=== PATIENT | male | born 1950 | race Caucasian/White ===

== ENCOUNTER 2022-10-13 13:51 | Inpatient (IN) | payer OTHER ==
--- OUTSIDE RECORDS SUMMARY | 2022-10-13 14:08 | XMS REPORT | Continuity of Care Document ---
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 0.9% - (titrate) Municipal 99 mL Trash Bin (Do not shake) D5NS 1,000 No 1,000 mL, Me moria mL 10 Rate: 250 l 05:19: ml/hr, Jong 00 Infuse over: 4 hr, Route: IV, Dosing Weight 141.038 kg, Total Volume: 1,000, Start date: 07/16/18 0:19:00 CDT, Duration: 30 day, Stop date: 08/15/18 0:18:00 CDT, 2.64, m2 Sodium No 1,000 mL, Memori a Chloride 10 Rate: 50 l 0.9% IV 05:19: ml/hr, [place] 1,000 mL 00 Infuse over: 20 hr, Route: IV, Dosing Weight 141.038 kg, Total Volume: 1,000, When Finger stick blood glucose values remain ABOVE 250 mg/dL administer until BG is less than 250 mg/dL., Start date: 07/16/18 0:19:00 CDT, Durati... potassium No Notes: Memori a phosphate 9-10 (Same as: l 05:19: K [place] Phosphate. ) Do not infuse phosphorou s concurrent ly in the same line as TPN or IVF that contains calcium. For double lumen central lines, phosphorou s may be infused in a separate lumen from TPN. 1 mMol phoshate has 1.47 mEq potassium Infuse over 4 hours Magnesium 2017-0 No Notes: Memori a Sulfate 07-16 WASTE: F/P l 05:19: - Sink; E Jong 00 - [facility] Trash Bin Potassium No Notes: Memori a Chloride 9-10 (Same as: l 05:19: KCL) Infuse no faster than 10 mEq/hr if given peripheral ly. Dextrose No 25 gm, 50 Tim bernard 50% Syringe 9-10 mL, Route: l 05:19: IVP, Drug Form: INJ, Dosing Weight 141.038, kg, PRN, PRN Blood Glucose Results, Start date: 07/16/18 0:19:00 CDT, Duration: 30 day, Stop date: 08/15/18 0:18:00 CDT Glucagon No 1 mg, Memoria 07-16 Route: IM, l 05:19: Drug form: PDR/INJ, PRN, Dosing Weight 141.038, kg, PRN Blood Glucose Results, Start date: 07/16/18 0:19:00 CDT, Duration: 30 day, Stop date: 08/15/18 0:18:00 CDT Insulin No Notes: Memoria (regular) -10 (Same as: l Titrate IV 05:19: Humulin R He rmann additive 00 and 100 unit + NovoLIN R) Sodium WASTE: F/P Chloride - Black; E 0.9% - (titrate) Municipal 99 mL Trash Bin (Do not shake) D5NS 1,000 2018 No 1,000 mL, Me moria mL 07-16 Rate: 250 l 05:19: ml/hr, Infuse over: 4 hr, Route: IV, Dosing Weight 141.038 kg, Total Volume: 1,000, Start date: 07/16/18 0:19:00 CDT, Duration: 30 day, Stop date: 08/15/18 0:18:00 CDT, 2.64, m2 Sodium No 1,000 mL, Memori a Chloride 9-10 Rate: 50 l 0.9% IV 05:19: ml/hr, Jong 1,000 mL 00 Infuse over: 20 hr, Route: IV, Dosing Weight 141.038 kg, Total Volume: 1,000, When Finger stick blood glucose values remain ABOVE 250 mg/dL administer until BG is less than 250 mg/dL., Start date: 07/16/18 0:19:00 CDT, Durati... Dextrose No 50 mL, Memoria 50% Syringe 07-16 Route: l 04:59: IVP, [place] 00 Dosing Weight 141.038, kg, PRN, PRN Abnormal Lab Result, Start date: 07/15/18 23:59:00 CDT, Duration: 30 day, Stop date: 08/14/18 23:58:00 CDT, For FSBG < 40 mg/dL Insulin No Notes: Memoria regular 100 9-10 (Same as: l unit + 04:59: Humulin R Gaetano n Sodium 00 and Chloride NovoLIN R) 0.9% WASTE: F/P (titrate) - Black; E 99 mL - [facility] Trash Bin (Do not shake) Dextrose No 50 mL, Memoria 50% Syringe 07-16 Route: l 04:59: IVP, Jong Dosing Weight 141.038, kg, PRN, PRN Abnormal Lab Result, Start date: 07/15/18 23:59:00 CDT, Duration: 30 day, Stop date: 08/14/18 23:58:00 CDT, For FSBG < 40 mg/dL Insulin No Notes: Memoria regular 100 9-10 (Same as: l unit + 04:59: Humulin R Gaetano n Sodium 00 and Chloride NovoLIN R) 0.9% WASTE: F/P (titrate) - Black; E 99 mL - [facility] Trash Bin (Do not shake) Insulin No Notes: Memoria (regular) 9-10 (Same as: l Titrate IV 04:57: Humulin R He rmann additive 00 and 100 unit + NovoLIN R) Sodium WASTE: F/P Chloride - Black; E 0.9% - (titrate) Municipal 99 mL Trash Bin (Do not shake) Insulin No Notes: Memoria (regular) 9-10 (Same as: l Titrate IV 04:57: Humulin R He rmann additive 00 and 100 unit + NovoLIN R) Sodium WASTE: F/P Chloride - Black; E 0.9% - (titrate) Municipal 99 mL Trash Bin (Do not shake) Isolyte S No Notes: Memori a PH-7.4 9-10 (Same as: l (Bolus) IV 04:37: Isolyte S He rmann 00 PH 7.4) Isolyte S No Notes: Memori a PH-7.4 9-10 (Same as: l (Bolus) IV 04:37: Isolyte S He rmann 00 PH 7.4) Tramadol No Notes: Not Mem oria 9-10 to exceed l 04:26: 400mg/day. [place] 00 (Same As: Ultram) Tramadol No Notes: Not Mem oria 9-10 to exceed l 04:26: 400mg/day. [place] 00 (Same As: Ultram) Insulin No Notes: Memoria regular 100 9-10 (Same as: l unit + 04:04: Humulin R Gaetano n Sodium 00 and Chloride NovoLIN R) 0.9% WASTE: F/P (titrate) - Black; E 99 mL - [facility] Trash Bin (Do not shake) Insulin No Notes: Memoria regular 100 9-10 (Same as: l unit + 04:04: Humulin R Gaetano n Sodium 00 and Chloride NovoLIN R) 0.9% WASTE: F/P (titrate) - Black; E 99 mL - [facility] Trash Bin (Do not shake) potassium No Notes: Memori a phosphate 9-10 (Same as: l 03:49: K 00 Phosphate. ) Do not infuse phosphorou s concurrent ly in the same line as TPN or IVF that contains calcium. For double lumen central lines, phosphorou s may be infused in a separate lumen from TPN. 1 mMol phoshate has 1.47 mEq potassium Infuse over 4 hours Potassium No Notes: Memori a Chloride 9-10 (Same as: l 03:49: KCL) Infuse no faster than 10 mEq/hr if given peripheral ly. Magnesium No Notes: Memori a Sulfate 07-16 WASTE: F/P l 03:49: - Sink; E [place] 00 - [facility] Trash Bin Glucagon No 1 mg, Memoria 07-16 Route: IM, l 03:49: Drug form: Jong 00 PDR/INJ, PRN, Dosing Weight 141.038, kg, PRN Blood Glucose Results, Start date: 07/15/18 22:49:00 CDT, Duration: 30 day, Stop date: 08/14/18 22:48:00 CDT Sodium No 1,000 mL, Memori a Chloride 07-16 Rate: 250 l 0.9% IV 03:49: ml/hr, Jong 1,000 mL 00 Infuse over: 4 hr, Route: IV, Dosing Weight 141.038 kg, Total Volume: 1,000, When Finger stick blood glucose values remain ABOVE 250 mg/dL administer until BG is less than 250 mg/dL., Start date: 07/15/18 22:49:00 CDT, Durat... D5NS 1,000 No 1,000 mL, Me moria mL 07-16 Rate: 250 l 03:49: ml/hr, Infuse over: 4 hr, Route: IV, Dosing Weight 141.038 kg, Total Volume: 1,000, Start date: 07/15/18 22:49:00 CDT, Duration: 30 day, Stop date: 08/14/18 22:48:00 CDT, 2.64, m2 Insulin No Notes: Memoria (regular) 07-16 (Same as: l Titrate IV 03:49: Humulin R He rmann additive 00 and 100 unit + NovoLIN R) Sodium WASTE: F/P Chloride - Black; E 0.9% - (titrate) Municipal 99 mL Trash Bin (Do not shake) Dextrose No 12.5 gm, Memor ia 50% Syringe 07-16 25 mL, l 03:49: Route: [place] 00 IVP, Drug Form: INJ, Dosing Weight 141.038, kg, PRN, PRN Blood Glucose Results, Start date: 07/15/18 22:49:00 CDT, Duration: 30 day, Stop date: 08/14/18 22:48:00 CDT potassium No Notes: Memori a phosphate 9-10 (Same as: l 03:49: K [place] 00 Phosphate. ) Do not infuse phosphorou s concurrent ly in the same line as TPN or IVF that contains calcium. For double lumen central lines, phosphorou s may be infused in a separate lumen from TPN. 1 mMol phoshate has 1.47 mEq potassium Infuse over 4 hours Potassium No Notes: Memori a Chloride 9-10 (Same as: l 03:49: KCL) Infuse no faster than 10 mEq/hr if given peripheral ly. Magnesium No Notes: Memori a Sulfate - WASTE: F/P l 03:49: - Sink; E Jong 00 - [facility] Trash Bin Glucagon No 1 mg, Memoria -10 Route: IM, l 03:49: Drug form: [place] 00 PDR/INJ, PRN, Dosing Weight 141.038, kg, PRN Blood Glucose Results, Start date: 07/15/18 22:49:00 CDT, Duration: 30 day, Stop date: 08/14/18 22:48:00 CDT Sodium No 1,000 mL, Memori a Chloride -10 Rate: 250 l 0.9% IV 03:49: ml/hr, Jong 1,000 mL 00 Infuse over: 4 hr, Route: IV, Dosing Weight 141.038 kg, Total Volume: 1,000, When Finger stick blood glucose values remain ABOVE 250 mg/dL administer until BG is less than 250 mg/dL., Start date: 07/15/18 22:49:00 CDT, Durat... D5NS 1,000 No 1,000 mL, Me moria mL -10 Rate: 250 l 03:49: ml/hr, Jong 00 Infuse over: 4 hr, Route: IV, Dosing Weight 141.038 kg, Total Volume: 1,000, Start date: 07/15/18 22:49:00 CDT, Duration: 30 day, Stop date: 08/14/18 22:48:00 CDT, 2.64, m2 Insulin No Notes: Memoria (regular) 9-10 (Same as: l Titrate IV 03:49: Humulin R He rmann additive 00 and 100 unit + NovoLIN R) Sodium WASTE: F/P Chloride - Black; E 0.9% - (titrate) Municipal 99 mL Trash Bin (Do not shake) Dextrose No 12.5 gm, Memor ia 50% Syringe 9-10 25 mL, l 03:49: Route: Jong 00 IVP, Drug Form: INJ, Dosing Weight 141.038, kg, PRN, PRN Blood Glucose Results, Start date: 07/15/18 22:49:00 CDT, Duration: 30 day, Stop date: 08/14/18 22:48:00 CDT Dextrose No 25 gm, 50 Tim bernard 50% Syringe 9-10 mL, Route: l 03:29: IVP, Drug Jong Form: INJ, Dosing Weight 141.038, kg, PRN, PRN Abnormal Lab Result, Start date: 07/15/18 22:29:00 CDT, Duration: 30 day, Stop date: 08/14/18 22:28:00 CDT, For FSBG < 40 mg/dL Insulin No Notes: Memoria regular 100 9-10 (Same as: l unit + 03:29: Humulin R Gaetano n Sodium 00 and Chloride NovoLIN R) 0.9% WASTE: F/P (titrate) - Black; E 99 mL - Municipal Trash Bin (Do not shake) Dextrose No 25 gm, 50 Tim bernard 50% Syringe 9-10 mL, Route: l 03:29: IVP, Drug [place] Form: INJ, Dosing Weight 141.038, kg, PRN, PRN Abnormal Lab Result, Start date: 07/15/18 22:29:00 CDT, Duration: 30 day, Stop date: 08/14/18 22:28:00 CDT, For FSBG < 40 mg/dL Insulin No Notes: Memoria regular 100 9-10 (Same as: l unit + 03:29: Humulin R Gaetano n Sodium 00 and Chloride NovoLIN R) 0.9% WASTE: F/P (titrate) - Black; E 99 mL - Municipal Trash Bin (Do not shake) acetaminoph No Notes: Max Memoria en 07-15 acetaminop l 23:00: hen 4000 Jong 00 mg/day (4 gm/day). (Same as: Tylenol Extra Strength) acetaminoph No Notes: Max Memoria en 07-15 acetaminop l 23:00: hen 4000 Jong 00 mg/day (4 gm/day). (Same as: Tylenol Extra Strength) Dextrose No 12.5 gm, Memor ia 50% Syringe 07-15 25 mL, l 22:27: Route: Jong 00 IVP, Drug Form: INJ, Dosing Weight 141.038, kg, PRN, PRN Abnormal Lab Result, Start date: 07/15/18 17:27:00 CDT, Duration: 30 day, Stop date: 08/14/18 17:26:00 CDT, For FSBG 40 mg/dL - 60 mg/dL Insulin No 60 units) Tim bernard regular 07-15 WASTE: F/P l 22:27: - Black; E Jong - [facility] Trash Bin Stable for 28 days at room temperatur e Expires in days from ____Date Dextrose No 12.5 gm, Memor ia 50% Syringe 07-15 25 mL, l 22:27: Route: [place] IVP, Drug Form: INJ, Dosing Weight 141.038, kg, PRN, PRN Abnormal Lab Result, Start date: 07/15/18 17:27:00 CDT, Duration: 30 day, Stop date: 08/14/18 17:26:00 CDT, For FSBG 40 mg/dL - 60 mg/dL Insulin No 60 units) Tim bernard regular 07-15 WASTE: F/P l 22:27: - Black; E Jong - [facility] Trash Bin Stable for 28 days at room temperatur e Expires in days from ____Date albumin 0 No Notes: Lot Tim bernard human 25% 07-15 #: l intravenous 20:41: [place] solution 00 ___ Mfg: (Same as: Plasbumin- 25) "blood product derivative " WASTE: F/P - Red; E -Red MEDICATION WASTE Product Size: 25 gm Product Wasted: ___ gm albumin No Notes: Lot Tim crawley human 25% 07-15 #: l intravenous 20:41: [place] solution 00 ___ Mfg: (Same as: Plasbumin- 25) "blood product derivative " WASTE: F/P - Red; E -Red MEDICATION WASTE Product Size: 25 gm Product Wasted: ___ gm heparin No Notes: Memoria 07-15 porcine l 18:23: heparin Jong 00 heparin No Notes: Jamesoria 07-15 porcine l 18:23: heparin [place] 00 Isolyte S No Notes: Memori a PH 7.4 07-15 (Same as: l 1,000 mL 15:48: Isolyte S Herm brie 00 PH 7.4) albumin No Notes: Maddison human 5% 07-15 LOT#: l intravenous 15:48: [place] solution 00 ___Mfg:___ ___ (Same as: Albuminar) "blood product derivative " WASTE: F/P - Red; E -Red MEDICATION WASTE Product Size: 25 gm Product Wasted: ___ gm Isolyte S No Notes: Memori a PH 7.4 07-15 (Same as: l 1,000 mL 15:48: Isolyte S Herm brie 00 PH 7.4) albumin No Notes: Maddison human 5% 07-15 LOT#: l intravenous 15:48: [place] solution 00 ___Mfg:___ ___ (Same as: Albuminar) "blood product derivative " WASTE: F/P - Red; E -Red MEDICATION WASTE Product Size: 25 gm Product Wasted: ___ gm Allopurinol No Notes: Tim bernard 07-15 (Same as: l 14:00: Zyloprim) Losartan No Notes: Memoria 07-15 (Same as: l 14:00: Cozaar) gabapentin No Notes: Memor ia 300 MG Oral 07-15 (Same as: l Capsule 14:00: Neurontin) Herm brie Colchicine No 0.6 mg, 1 Me moria 0.6 MG Oral 07-15 tab, l Tablet 14:00: Route: PO, Carley nn 00 Drug form: TAB, Daily, Dosing Weight 141.364, kg, Start date: 07/15/18 9:00:00 CDT, Duration: 30 day, Stop date: 08/13/18 9:00:00 CDT Furosemide No Notes: Memor ia 20 MG Oral 07-15 (Same as: l Tablet 14:00: Lasix) March Carley cause GI upset. Give with food or milk. Losartan No Notes: Memoria 07-15 (Same as: l 14:00: Cozaar) gabapentin No Notes: Memor ia 300 MG Oral 07-15 (Same as: l Capsule 14:00: Neurontin) Herm brie Colchicine No 0.6 mg, 1 Me moria 0.6 MG Oral 07-15 tab, l Tablet 14:00: Route: PO, Carley nn 00 Drug form: TAB, Daily, Dosing Weight 141.364, kg, Start date: 07/15/18 9:00:00 CDT, Duration: 30 day, Stop date: 08/13/18 9:00:00 CDT Furosemide No Notes: Memor ia 20 MG Oral 07-15 (Same as: l Tablet 14:00: Lasix) Marcha cause GI upset. Give with food or milk. Allopurinol No Notes: Tim bernard 07-15 (Same as: l 14:00: Zyloprim) Flomax No Notes: Memoria 07-15 (Same As: l 13:30: Flomax) "Do Not Crush" Flomax No Notes: Memoria 07-15 (Same As: l 13:30: Flomax) "Do Not Crush" Insulin 2018-0 No 60 units) Tim bernard regular 07-15 WASTE: F/P l 13:02: - Black; E [place] - [facility] Trash Bin Stable for 28 days at room temperatur e Expires in days from ____Date Insulin 2018-0 No 60 units) Tim bernard regular 07-15 WASTE: F/P l 13:02: - Black; E Jong - [facility] Trash Bin Stable for 28 days at room temperatur e Expires in days from ____Date Insulin 2018-0 No 60 units) Tim bernard regular 07-15 WASTE: F/P l 04:20: - Black; E [place] - [facility] Trash Bin Stable for 28 days at room temperatur e Expires in days from ____Date Glucagon 2018-0 No 1 mg, Memoria 07-15 Route: IM, l 04:20: Drug form: Jong 00 PDR/INJ, PRN, Dosing Weight 141.038, kg, PRN Blood Glucose Results, Start date: 07/14/18 23:20:00 CDT, Duration: 30 day, Stop date: 08/13/18 23:19:00 CDT Dextrose 2018-0 No 12.5 gm, Memor ia 50% Syringe 07-15 25 mL, l 04:20: Route: Jong 00 IVP, Drug Form: INJ, Dosing Weight 141.038, kg, PRN, PRN Blood Glucose Results, Start date: 07/14/18 23:20:00 CDT, Duration: 30 day, Stop date: 08/13/18 23:19:00 CDT Insulin 2018-0 No 60 units) Tim bernard regular 07-15 WASTE: F/P l 04:20: - Black; E Jong - [facility] Trash Bin Stable for 28 days at room temperatur e Expires in days from ____Date Glucagon 2018-0 No 1 mg, Memoria 07-15 Route: IM, l 04:20: Drug form: [place] 00 PDR/INJ, PRN, Dosing Weight 141.038, kg, PRN Blood Glucose Results, Start date: 07/14/18 23:20:00 CDT, Duration: 30 day, Stop date: 08/13/18 23:19:00 CDT Dextrose No 12.5 gm, Memor ia 50% Syringe 07-15 25 mL, l 04:20: Route: IVP, Drug Form: INJ, Dosing Weight 141.038, kg, PRN, PRN Blood Glucose Results, Start date: 07/14/18 23:20:00 CDT, Duration: 30 day, Stop date: 08/13/18 23:19:00 CDT Streptococc No Notes: Tim bernard us 07-15 Shake well l pneumoniae 04:16: prior to Her nieves serotype 1 57 use (Same capsular as: antigen Prevnar diphtheria 13) [id number] protein conjugate vaccine / Streptococc us pneumoniae serotype 14 capsular antigen diphtheria [id number] protein conjugate vaccine / Streptococc us pneumoniae serotype 18C capsular antigen d Streptococc No Notes: Tim bernard us 07-15 Shake well l pneumoniae 04:16: prior to Her nieves serotype 1 57 use (Same capsular as: antigen Prevnar diphtheria 13) [id number] protein conjugate vaccine / Streptococc us pneumoniae serotype 14 capsular antigen diphtheria [id number] protein conjugate vaccine / Streptococc us pneumoniae serotype 18C capsular antigen d atorvastati No Notes: Tim bernard n 07-15 (Same As: l 02:00: Lipitor) Saline No Notes: Memoria Flush 0.9% 07-15 preservati l 02:00: ve free. celecoxib No Notes: Memori a 07-15 NSAID. l 02:00: Please check indication . Not for seizure. (Same As: CeleBREX) metoprolol No Notes: Memor ia tartrate 07-15 (Same as: l 02:00: Lopressor) atorvastati No Notes: Tim bernard n 07-15 (Same As: l 02:00: Lipitor) Saline No Notes: Memoria Flush 0.9% 07-15 preservati l 02:00: ve free. celecoxib No Notes: Memori a 07-15 NSAID. l 02:00: Please [place] 00 check indication . Not for seizure. (Same As: CeleBREX) metoprolol No Notes: Memor ia tartrate 07-15 (Same as: l 02:00: Lopressor) PlasmaLyte No Notes: Memor ia A PH-7.4 07-15 WASTE: F/P l 1,000 mL 00:47: - Sink; E Herm brie - Municipal Trash Bin PlasmaLyte No Notes: Memor ia A PH-7.4 07-15 WASTE: F/P l 1,000 mL 00:47: - Sink; E Herm brie - Municipal Trash Bin Acetaminoph No Notes: Max Memoria en 07-14 acetaminop l 23:00: hen 4000 Jong 00 mg/day (4 gm/day). (Same as: Tylenol Extra Strength) Lidocaine No Notes: Memori a Hydrochlori 07-14 Apply only l de 0.05 23:00: once for Gaetano n MG/MG 00 up to 12 Transdermal hours in a Patch 24-hour [Lidoderm] period (12 hours on and 12 hours off). (Same as: Lidoderm) "Remove old patch before applicatio n of new patch" Acetaminoph No Notes: Max Memoria en 07-14 acetaminop l 23:00: hen 4000 Jong 00 mg/day (4 gm/day). (Same as: Tylenol Extra Strength) Lidocaine No Notes: Memori a Hydrochlori 07-14 Apply only l de 0.05 23:00: once for Gaetano n MG/MG 00 up to 12 Transdermal hours in a Patch 24-hour [Lidoderm] period (12 hours on and 12 hours off). (Same as: Lidoderm) "Remove old patch before applicatio n of new patch" Colchicine Yes 0.6 mg = 1 M emoria 0.6 MG Oral 07-14 tab, PO, l Tablet 22:46: Daily, # [place] 00 30 tab, 0 Refill(s) Glipizide Yes 10 mg = 1 Mem oria 10 MG Oral 07-14 tab, PO, l Tablet 22:46: Before [place] 00 Breakfast, # 90 tab, 0 Refill(s) metoprolol Yes 100 mg = 1 M emoria tartrate 9-08 tab, PO, l 100 mg oral 22:46: BID, # 180 [place] tablet 00 tab, 0 Refill(s) Metformin 2017-0 Yes 1,000 mg, Mem oria 9-08 PO, 0 l 22:46: Refill(s) Jong 00 losartan 50 2018-0 Yes 50 mg = 1 M emoria mg oral 9-08 tab, PO, l tablet 22:46: Daily, # Jong 00 90 tab, 0 Refill(s) Furosemide Yes 20 mg = 1 Me moria 20 MG Oral 9-08 tab, PO, l Tablet 22:46: Daily, # [place] 00 90 tab, 0 Refill(s) clopidogrel No 75 mg = 1 M emoria 75 mg oral -08 tab, PO, l tablet 22:46: Daily, # Jong 00 90 tab, 1 Refill(s) atorvastati Yes 20 mg = 1 M emoria n 20 mg -08 tab, PO, l oral tablet 22:46: Bedtime, # [place] 00 30 tab, 0 Refill(s) allopurinol Yes 300 mg = 1 Memoria 300 mg oral 9-08 tab, PO, l tablet 22:46: Daily, # Jong 00 30 tab, 0 Refill(s) gabapentin 2017- No 300 mg = 1 M emoria 300 MG Oral 08 cap, PO, l Capsule 22:46: TID, # 90 Carley nn 00 cap, 0 Refill(s) Colchicine 2017-0 Yes 0.6 mg = 1 M emoria 0.6 MG Oral -08 tab, PO, l Tablet 22:46: Daily, # Jong 00 30 tab, 0 Refill(s) Glipizide Yes 10 mg = 1 Mem oria 10 MG Oral 9-08 tab, PO, l Tablet 22:46: Before Breakfast, # 90 tab, 0 Refill(s) metoprolol 2017- Yes 100 mg = 1 M emoria tartrate 9-08 tab, PO, l 100 mg oral 22:46: BID, # 180 [place] tablet 00 tab, 0 Refill(s) Metformin Yes 1,000 mg, Mem oria 08 PO, 0 l 22:46: Refill(s) [place] 00 losartan 50 Yes 50 mg = 1 M emoria mg oral 08 tab, PO, l tablet 22:46: Daily, # [place] 00 90 tab, 0 Refill(s) Furosemide Yes 20 mg = 1 Me moria 20 MG Oral 08 tab, PO, l Tablet 22:46: Daily, # [place] 00 90 tab, 0 Refill(s) clopidogrel No 75 mg = 1 M emoria 75 mg oral 08 tab, PO, l tablet 22:46: Daily, # Jong 00 90 tab, 1 Refill(s) atorvastati Yes 20 mg = 1 M emoria n 20 mg 08 tab, PO, l oral tablet 22:46: Bedtime, # [place] 00 30 tab, 0 Refill(s) allopurinol Yes 300 mg = 1 Memoria 300 mg oral 08 tab, PO, l tablet 22:46: Daily, # Jong 00 30 tab, 0 Refill(s) gabapentin No 300 mg = 1 M emoria 300 MG Oral 08 cap, PO, l Capsule 22:46: TID, # 90 Carley nn 00 cap, 0 Refill(s) Isolyte S No Notes: Memori a PH 7.4 07-14 (Same as: l 1,000 mL 22:44: Isolyte S Herm brie 00 PH 7.4) Isolyte S No Notes: Memori a PH 7.4 07-14 (Same as: l 1,000 mL 22:44: Isolyte S Herm brie 00 PH 7.4) Tramadol No Notes: Not Mem oria 07-14 to exceed l 22:36: 400mg/day. [place] 00 (Same As: Ultram) Oxycodone No Notes: Memori a Hydrochlori 07-14 (Same as: l de 5 MG 22:36: Roxicodone Herm brie Oral Tablet 00 ) pregabalin No Notes: Memor ia 07-14 Same as l 22:36: Lyrica Jong 00 Tramadol No Notes: Not Mem oria 07-14 to exceed l 22:36: 400mg/day. Jong 00 (Same As: Ultram) Oxycodone No Notes: Memori a Hydrochlori 07-14 (Same as: l de 5 MG 22:36: Roxicodone Herm brie Oral Tablet 00 ) pregabalin No Notes: Memor ia 07-14 Same as l 22:36: Lyrica [place] 00 Saline No Notes: Memoria Flush 0.9% 08 preservati l 22:19: ve free. Jong Acetaminoph No Notes: Do M emoria en 07-14 not exceed l 22:19: 4 gm/day. Jong (Same as: Tylenol) Ibuprofen No Notes: Memori a 07-14 (Same as: l 22:19: Motrin) Jong 00 "Do Not Crush" Take with food. Docusate No Notes: Memoria 07-14 (Same as: l 22:19: Colace) [place] (Do Not Crush) Ondansetron No Notes: Tim bernard 07-14 (Same as: l 22:19: Zofran) [place] 00 MEDICATION WASTE Product Size: 4 mg Product Wasted: ___ mg Saline No Notes: Memoria Flush 0.9% 07-14 preservati l 22:19: ve free. [place] Acetaminoph No Notes: Do M emoria en 07-14 not exceed l 22:19: 4 gm/day. Jong 00 (Same as: Tylenol) Ibuprofen No Notes: Memori a 07-14 (Same as: l 22:19: Motrin) [place] 00 "Do Not Crush" Take with food. Docusate No Notes: Memoria 9-08 (Same as: l 22:19: Colace) Jong 00 (Do Not Crush) Ondansetron No Notes: Tim bernard 07-14 (Same as: l 22:19: Zofran) [place] 00 MEDICATION WASTE Product Size: 4 mg Product Wasted: ___ mg iodixanol 2018-0 No 150 mL, Memor ia 07-14 Route: l 20:23: IVP, Drug [place] 00 Form: SOLN, Dosing Weight 141.364, kg, ONCALL, STAT, Start date: 07/14/18 15:23:00 CDT, Duration: 1 doses or times, Dose = 2.2ml/kg, Max dose = 150ml -- "To be infused by Radiology Staff ONLY" iodixanol 2018-0 No 150 mL, Memor ia 07-14 Route: l 20:23: IVP, Drug Jong 00 Form: SOLN, Dosing Weight 141.364, kg, ONCALL, STAT, Start date: 07/14/18 15:23:00 CDT, Duration: 1 doses or times, Dose = 2.2ml/kg, Max dose = 150ml -- "To be infused by Radiology Staff ONLY" Ondansetron 2018-0 No 4 mg, [facility] 07-14 Route: l 19:53: IVP, ONCE, Dosing Weight 141.364, kg, Priority: STAT, Start date: 07/14/18 14:53:00 CDT, Stop date: 07/14/18 14:53:00 CDT Saline 2018-0 No Notes: Memoria Flush 0.9% 07-14 (Same as: l 19:53: BD [place] 00 Posiflush) Ondansetron 2018-0 No 4 mg, [facility] ia 07-14 Route: l 19:53: IVP, ONCE, Dosing Weight 141.364, kg, Priority: STAT, Start date: 07/14/18 14:53:00 CDT, Stop date: 07/14/18 14:53:00 CDT Saline 2018-0 No Notes: [facility]oria Flush 0.9% 07-14 (Same as: l 19:53: BD [place] 00 Posiflush) Immunizations Ordered Filled Immunization Date Status Comments [facility] e Immunization Name Name Twinrix (hep a/hep 2021-07-02 Completed [facility] b) 00:00:00 [facility] Twinrix (hep a/hep 2021-03-10 Completed [facility] of b) 00:00:00 [facility] Twinrix (hep a/hep 2021-01-12 Completed [facility] of b) 00:00:00 [facility] SARS-COV-2 COVID-19 2020-12-19 Completed [facility]ive rs[facility] of PFIZER VACCINE 00:00:00 [facility] SARS-COV-2 COVID-19 2020-11-28 Completed Unive rs[facility] of PFIZER VACCINE 00:00:00 [facility] Zoster Vaccine 2020-10-09 Completed [facility] of Recombinant 00:00:00 [facility] Influenza Virus 2020-09-03 Completed [facility] of Vaccine 00:00:00 [facility] Influenza High Dose 2020-07-29 Completed Unive rsity of 00:00:00 [facility] Zoster Vaccine 2020-07-29 Completed University of Recombinant 00:00:00 [facility] Pneumococcal 2020-05-04 Completed University o f Polysaccharide, 00:00:00 [place] [facility] PPSV23 (PNEUMOVAX) Branch Influenza Virus 2019-12-31 Completed Universit y of Vaccine 00:00:00 [facility] Pneumococcal 2019-07-03 Completed University o f Polysaccharide, 00:00:00 [facility] ical PPSV23 (PNEUMOVAX) Branch TDAP 2019-07-03 Completed University of 00:00:00 [facility] Pneumococcal 13 2018-06-15 Completed Universit y of Conjugate, PCV13 00:00:00 [facility] dicnc (Prevnar 13) [place] Vital Signs Vital Name Observation Time Observation Value Comments Source Weight 2021-05-26 21:00:00 128.36 KG Height 2021-05-26 21:00:00 183 CM Weight 2021-05-26 14:31:00 7.93 KG Temperature Oral (F) 2018-07-22 01:09:00 98.1 F [facility] Heart Rate 2018-07-22 01:09:00 [facility] Systolic (mm Hg) 2018-07-22 01:09:00 Tim rial Jong Diastolic (mm Hg) 2018-07-22 01:09:00 [facility] Respitory Rate 2018-07-22 01:09:00 Memori al [facility] Systolic (mm Hg) 2018-07-21 23:10:00 Tim rial Jong Diastolic (mm Hg) 2018-07-21 23:10:00 Mem [facility] Respitory Rate 2018-07-21 23:10:00 [facility] Temperature Oral (F) 2018-07-21 21:40:00 98.4 F [facility] Systolic (mm Hg) 2018-07-21 21:40:00 Tim rial [place] Diastolic (mm Hg) 2018-07-21 21:40:00 Mem orial Jong Respitory Rate 2018-07-21 21:40:00 [facility] Temperature Oral (F) 2018-07-21 18:57:00 98.6 F [facility] Heart Rate 2018-07-21 18:57:00 [facility] Weight 2018-07-21 18:57:00 [facility] BMI Calculated 2018-07-21 18:57:00 Memori al [facility] Height 2018-07-21 18:57:00 177.8 cm [facility] Systolic (mm Hg) 2018-07-19 17:00:00 Tim rial Jong Diastolic (mm Hg) 2018-07-19 17:00:00 [facility] Respitory Rate 2018-07-19 17:00:00 [facility] Systolic (mm Hg) 2018-07-19 16:00:00 Tim rial Jong Diastolic (mm Hg) 2018-07-19 16:00:00 [facility] Respitory Rate 2018-07-19 16:00:00 Memori al [facility] Respitory Rate 2018-07-19 15:00:00 [facility] Systolic (mm Hg) 2018-07-19 15:00:00 Tim rial [facility] Diastolic (mm Hg) 2018-07-19 15:00:00 [facility] Temperature Oral (F) 2018-07-16 10:00:00 97.0 F [facility] Temperature Oral (F) 2018-07-16 08:00:00 96.9 F [facility] Temperature Oral (F) 2018-07-16 06:00:00 96.8 F [facility] BMI Calculated 2018-07-15 04:12:00 [facility] Weight 2018-07-15 04:12:00 [facility] Height 2018-07-15 04:12:00 172.72 cm [facility] Heart Rate 2018-07-14 19:33:00 [facility] Height 2018-07-14 19:33:00 177.8 cm [facility] 2018-07-14 19:33:00 [facility] 2018-07-14 19:33:00 Vinh Weller Procedures Procedure Date / Time Performed Performing Clinician Alexis simpson [id number] 2021-05-08 00:00:00 MCKRO [facility] [id number] 2021-05-08 00:00:00 NISJO [facility] [id number] 2021-05-08 00:00:00 NISJO [facility] [id number] 2021-05-04 00:00:00 UGBST [facility] [id number] 2021-03-24 00:00:00 THADH [facility] [place] NAUTO RED BLD CLL [facility] Abril baird Encounters Start End Encounter Admission Attending Care Care Encounter Source Date/Time Date/Time Type Type Clinicians Facility Department ID 2021-12-02 Outpatient 3 [id number] [facility] [id number] [facility] 12:53:07 [facility] [place] 2021-12-02 Outpatient 3 [id number] [facility] REF [id number] [facility] 12:52:20 0910 [facility] [place] 2021-12-02 Outpatient 3 [id number] [facility] REF [id number] [facility] 12:52:08 0909 [facility] [place] 2021-12-02 Outpatient 3 [id number] E[facility] CRD [id number] [facility] 12:29:03 0710 [facility] [place] 2021-12-02 Outpatient 3 [id number] E[facility] CRD [id number] [facility] 12:28:27 0708 [facility] [place] 2021-12-02 Outpatient 3 [id number] E[facility] REF [id number] [facility] 12:24:47 0629 [facility] [place] 2021-12-02 Outpatient 3 [id number] E[facility] REF [id number] [facility] 12:24:33 0628 [facility] [place] 2022-04-12 2022-04-12 Transition MARY ANN [place] 1.2.840.114 [id number] Univers 00:00:00 00:00:00 of Gabriella GEORGEY [id number] it y of [place]ER[place] [id number] [facility] [id number] [facility] [address] 2022-04-07 2022-04-10 Inpatient Jatinder [facility] [id number] Univers 12:30:00 14:40:00 MAGALIS conteh [facility] 2022-04-07 2022-04-10 Inpatient Jatinder [facility] [id number] Univers 12:30:00 14:40:00 MAGALIS conteh [facility] 2022-04-07 2022-04-10 [facility] Bryant Loomis [facility] 1.2.840.1 [id number] Univers 12:30:00 14:40:00 Magalis Carcamo [id number] ity [id number] [id number] [facility] 080 Branch 2021-08-04 2021-08-04 Outpatient [facility] [id number] 09:32:00 09:32:00 -[id number] [facility] 2021-08-03 2021-08-03 Outpatient [facility] [id number] 20:00:00 20:00:00 -[id number] [facility] 2021-08-02 2021-08-02 Outpatient [facility] [id number] 01:35:00 01:35:00 -[id number] [facility] 2021-07-30 2021-07-30 Outpatient [facility] [id number] 09:56:00 09:56:00 -[id number] [facility] 2021-07-26 2021-07-26 Outpatient [facility] [id number] 10:50:00 10:50:00 -[id number] [facility] 2021-07-23 2021-07-23 Outpatient [facility] [id number] 13:23:00 13:23:00 -[id number] [facility] 2021-07-21 2021-07-21 Outpatient [facility] [id number] 10:15:00 10:15:00 -[id number] [facility] 2021-07-19 2021-07-19 Outpatient [facility] [id number] 12:37:00 12:37:00 -[id number] [facility] 2021-07-12 2021-07-18 [facility] Malia Cruz [facility] 1.2.840. 114 [id number] Univers 18:29:00 15:15:00 Encounter Wendy Baez [id number] ity of Dagmar Perez [id number] [facility] [id number] [address] 2021-07-12 2021-07-18 Inpatient X ANA [facility] JUNIOR [id number] Univers 18:29:00 15:15:00 DAGMAR conteh [facility] 2021-06-13 2021-06-17 Emergency Kennedi Ndiayeanne [facility] 1.2.840 .114 [id number] Univers 11:17:00 16:30:00 Magalis Poe [id number] itGilles [id number] [facility] [id number] [address] 2021-06-13 2021-06-13 Emergency X MAURY [facility] ERT [id number] Univers 11:17:00 11:17:00 FIDE conteh [facility] 2021-05-26 2021-05-28 Outpatient C [facility] [id number] [place] 14:26:00 15:35:00 [facility] 2021-04-28 2021-05-14 Inpatient EM Willis Dotsonh [facility] INTE [id number] [facility] 01:11:00 21:18:[address] [facility] 2021-04-27 2021-04-27 Emergency EM JACKSON [place] [facility] [id number] [facility] 14:49:00 21:39:00 Briseida Garza [facility] 2021-04-22 2021-04-25 Inpatient EM Cheyenne, DUSTINPM SURG [id number] [facility] 13:01:00 09:50:00 Mohamed 71 [facility] 2021-04-22 2021-04-22 Outpatient [place], DUSTINCL LABO [id number] [facility] 20:47:00 20:47:00 Mohamed 23 [facility] 2021-03-21 2021-03-30 Inpatient EM Jason, HCAPM MED [id number] [facility] 18:51:00 14:55:00 Oladipo 20 [facility] 2021-03-20 2021-03-20 Outpatient Jason, HCACL LABO [id number] [facility] 23:42:00 23:42:00 Oladipo 60 [facility] 2020-10-28 2020-10-28 Outpatient KNOW, HCABM OPLA [id number] [facility] 20:42:00 20:42:00 DOES_NOT 88 [facility] 2020-05-17 2020-05-17 Telephone Josephine Coleman 1.2.840.114 [id number] 00:00:00 00:00:00 KATLYN [id number] [facility] [id number] [id number] 2020-05-17 2020-05-17 Telephone Josephine Coleman 1.2.840.114 [id number] Univers 00:00:00 00:00:00 KATLYN [id number] it y [facility] [id number] [facility] [id number] [facility] 0[address] 2020-05-11 2020-05-11 [facility] 1.2.840.114 [id number] 08:59:36 12:09:00 Cori Bhat [id number] [place] [id number] [place] [id number] [facility] 2020-05-11 2020-05-11 [facility] 1.2.840.114 [id number] [facility] 08:59:36 12:09:00 Cori Bhat [id number] ity [facility] [id number] [facility] [id number] [address] 2020-05-11 2020-05-[address] [facility] ERT [id number] Univers 08:59:36 08:59:36 ity of [facility] 2020-02-15 2020-02-15 Transition Mary Ann Page 1.2.840.114 [id number] 00:00:00 00:00:00 of Care Roxanna Georgey [id number] [place] [id number] [id number] 2020-02-15 2020-02-15 Transition Mary Ann Page 1.2.840.114 [id number] Univers 00:00:00 00:00:00 of Care Roxanna Georgey [id number] i ty of [id number] [id number] [facility] 403 [place] 2020-02-11 2020-02-14 [facility] Mckay Moore 1.2.840.1 14 [id number] 14:42:07 18:40:00 Encounter SternGermánmt Potts [id number] [facility] [id number] [id number] [facility] 2020-02-11 2020-02-14 [facility] Mckay Moore 1.2.840.1 14 [id number] Univers 14:42:07 18:40:00 [facility] [id number] ity of [facility] [id number] [place] [id number] [place] [id number] [place] 2020-02-11 2020-02-14 Inpatient X [facility] SAH [id number] Univers 14:42:07 18:40:00 HASHPACO ity of [facility] 2018-07-21 2018-07-22 Emergency [facility] [id number] Memoria 18:52:00 01:12:00 saul soto [facility] 2018-07-21 2018-07-22 Emergency [facility] [id number] Memoria 18:52:00 01:12:00 saul soto [facility] 2018-07-21 2018-07-21 Outpatient Aznaurova-A [facility] [id number] 13:52:00 20:12:00 Ines roy 2018-07-14 2018-07-19 Inpatient [facility] [id number] Memoria 19:29:00 17:30:00 r [facility] 00 l [facility] 2018-07-14 2018-07-19 Inpatient [facility] [id number] Memoria 19:29:00 17:30:[address] [facility] 2018-07-14 2018-07-19 Outpatient Nolan, [facility] [id number] 14:29:00 12:30:00 Janie 00 Rhett Results Test Description Test Time Test Comments Results Result Comments Source URINE CULTURE 2021-05-29 08:40:00 Test Item Value Reference Range Interpretation Comme nts Culture Observations (test code = COB1) NO GROWTH (<1,000 CFU/ML) COMPREHENSIVE METABOLIC [id number] 06:58:00 Test Item Value Reference Range Interpretation Comments GLUCOSE (test code 95 mg/dL 75-100 = 06D) SODIUM (test code 138 mmol/L 136-145 = 01A) POTASSIUM (test 4.6 mmol/L 3.6-5.1 code = 01B) CHLORIDE (test 110 mmol/L 98-107 H code = 04A) CO2 (test code = 24 mmol/L 22-32 02A) ANION GAP (test 8.6 mmol/L code = ANG) BUN (test code = 49 mg/dL 7-18 H 05D) CREATININE (test 2.2 mg/dL 0.7-1.3 H code = 03E) GFR (test code = 29 See_Comment L [Automated GFR) mL/min/1.73m\\S\\2 message] Th e system which generated this result transmit didi reference range : >=90. The reference range was not used to interpret this result as normal/abnormal . GFR 33 See_Comment L [Automated CANADIAN (test mL/min/1.73m\\S\\2 message] The code = GFRAA) system which generated this result transmit didi reference range : >=90. The reference range was not used to interpret this result as normal/abnormal . EGFR (test code = eGFR BY EGFR) CKD-EPI CALCULATION IS NOT RECOMMENDED FOR PATIENTS UNDER 18 YEARS OF AGE. BUN/CREA (test 22 12-20 H code = BCR) CALCIUM (test code 8.0 mg/dL 8.3-9.5 L = 09D) BILI TOTAL (test 0.6 mg/dL 0.2-1.0 code = 11A) PROTEIN (test code 5.8 g/dL 6.4-8.2 L = 07D) ALBUMIN (test code 2.2 g/dL 3.5-4.8 L = 08D) GLOBULIN (test 3.6 g/dL 1.5-3.8 code = GLB) ALB/GLOB (test 0.6 1.0-2.6 L code = AGRR) ALK PHOS (test 132 IU/L 42-121 H code = 35A) AST (test code = 17 IU/L See_Comment [Automated 30A) message] The system which generated this result transmit didi reference range : <=42. The reference range was not used to interpret this result as normal/abnormal . ALT (test code = 26 IU/L See_Comment [Automated 31A) message] The system which generated this result transmit didi reference range : <=78. The reference range was not used to interpret this result as normal/abnormal . CBC (INCLUDES AUTOMATED DIFFERENTIAL)2021-05-28 06:49:00 Test Item Value Reference Range Interpretation Comments WBC (test code = WBC) 3.9 10\\S\\3/uL 4.5-11.0 L RBC (test code = RBC) 2.85 10\\S\\6/uL 3.80-5.80 L HGB (test code = HBG) 8.8 g/dL 14.0-18.0 L HCT (test code = HCT) 26.7 % 35.0-46.0 L MCV (test code = MCV) 93.7 fL 80.0-94.0 MCH (test code = MCH) 30.9 pg 27.0-31.0 MCHC (test code = MCHC) 33.0 g/dL 32.0-36.0 RDW (test code = RDW) 13.8 % 11.5-14.5 PLT (test code = PLT) 93 10\\S\\3/uL 130-400 L MPV (test code = MPV) 10.4 fL 9.4-12.4 NEUTROP # (test code = NE#) 2.3 10\\S\\3/uL 2.0-8.0 LYMPH # (test code = LY#) 0.8 10\\S\\3/uL 1.2-4.0 L MONOCYTE # (test code = MO#) 0.4 10\\S\\3/uL 0.0-1.1 EOSINOPH # (test code = EO#) 0.4 10\\S\\3/uL 0.0-0.7 BASOPHIL # (test code = BA#) 0.0 10\\S\\3/uL 0.0-0.3 IG # (test code = IG#) 0.02 10\\S\\3/uL 0.00-0.06 NRBC # (test code = NRBC#) 0.00 10\\S\\3/uL 0.00-0.01 NEUTROPH % (test code = NE%) 59.5 % 35.0-73.0 LYMPH % (test code = LY%) 20.6 % 20.0-55.0 MONO % (test code = MO%) 9.3 % 2.5-10.0 EOSINOPH % (test code = EO%) 9.8 % 0.0-5.0 H BASOPHIL % (test code = BA%) 0.3 % 0.0-2.0 IG % (test code = IG%) 0.5 % 0.0-0.8 NRBC% (test code = NRBC%) 0.0 % 0.0-0.2 MANDIFF (test code = MDIFF) NO NO RBC MORPH (test code = RBCMOR) NORMAL SARS-CoV-2 (MOLECULAR)2021-05-27 10:42:00 Test Item Value Reference Range Interpretation Comments SARS-CoV-2 MOLECULAR POSITIVE NEGATIVE AA (test code = WCOV) COVID AG (test code This test has been = COVAGC) marketed under the FDA Emergency Use Authorization (EUA) to meet challenges of the COVID-19 pandemic. The validation standards normally enforced by the FDA and the [employer] of the [place] [employer] (CAP) are more stringent than those required for this test. Therefore, the result should be interpreted with caution and close attention to other clinical and epidemiological data CBC (INCLUDES AUTOMATED DIFFERENTIAL)2021-05-27 07:28:00 Test Item Value Reference Range Interpretation Comments WBC (test code = WBC) 3.7 10\\S\\3/uL 4.5-11.0 L RBC (test code = RBC) 2.97 10\\S\\6/uL 3.80-5.80 L HGB (test code = HBG) 9.2 g/dL 14.0-18.0 L HCT (test code = HCT) 27.4 % 35.0-46.0 L MCV (test code = MCV) 92.3 fL 80.0-94.0 MCH (test code = MCH) 31.0 pg 27.0-31.0 MCHC (test code = MCHC) 33.6 g/dL 32.0-36.0 RDW (test code = RDW) 13.6 % 11.5-14.5 PLT (test code = PLT) 83 10\\S\\3/uL 130-400 L MPV (test code = MPV) 10.4 fL 9.4-12.4 NEUTROP # (test code = NE#) 2.4 10\\S\\3/uL 2.0-8.0 LYMPH # (test code = LY#) 0.6 10\\S\\3/uL 1.2-4.0 L MONOCYTE # (test code = MO#) 0.3 10\\S\\3/uL 0.0-1.1 EOSINOPH # (test code = EO#) 0.3 10\\S\\3/uL 0.0-0.7 BASOPHIL # (test code = BA#) 0.0 10\\S\\3/uL 0.0-0.3 IG # (test code = IG#) 0.01 10\\S\\3/uL 0.00-0.06 NRBC # (test code = NRBC#) 0.00 10\\S\\3/uL 0.00-0.01 NEUTROPH % (test code = NE%) 65.3 % 35.0-73.0 LYMPH % (test code = LY%) 16.8 % 20.0-55.0 L MONO % (test code = MO%) 9.2 % 2.5-10.0 EOSINOPH % (test code = EO%) 7.9 % 0.0-5.0 H BASOPHIL % (test code = BA%) 0.5 % 0.0-2.0 IG % (test code = IG%) 0.3 % 0.0-0.8 NRBC% (test code = NRBC%) 0.0 % 0.0-0.2 MANDIFF (test code = MDIFF) NO NO RBC MORPH (test code = RBCMOR) NORMAL BASIC METABOLIC [id number] 07:02:00 Test Item Value Reference Range Interpretation Comments GLUCOSE (test code 126 mg/dL 75-100 H = 06D) SODIUM (test code 139 mmol/L 136-145 = 01A) POTASSIUM (test 4.6 mmol/L 3.6-5.1 code = 01B) CHLORIDE (test 109 mmol/L 98-107 H code = 04A) CO2 (test code = 26 mmol/L 22-32 02A) ANION GAP (test 8.6 mmol/L code = ANG) BUN (test code = 57 mg/dL 7-18 H 05D) CREATININE (test 2.2 mg/dL 0.7-1.3 H code = 03E) GFR (test code = 30 See_Comment L [Automated GFR) mL/min/1.73m\\S\\2 message] Th e system which generated this result transmit didi reference range : >=90. The reference range was not used to interpret this result as normal/abnormal . GFR 34 See_Comment L [Automated CANADIAN (test mL/min/1.73m\\S\\2 message] The code = GFRAA) system which generated this result transmit didi reference range : >=90. The reference range was not used to interpret this result as normal/abnormal . EGFR (test code = eGFR BY EGFR) CKD-EPI CALCULATION IS NOT RECOMMENDED FOR PATIENTS UNDER 18 YEARS OF AGE. BUN/CREA (test 26 12-20 H code = BCR) CALCIUM (test code 8.1 mg/dL 8.3-9.5 L = 09D) BASIC METABOLIC [id number] 23:18:00 Test Item Value Reference Range Interpretation Comments GLUCOSE (test code 124 mg/dL 75-100 H = 06D) SODIUM (test code 140 mmol/L 136-145 = 01A) POTASSIUM (test 4.8 mmol/L 3.6-5.1 code = 01B) CHLORIDE (test 108 mmol/L 98-107 H code = 04A) CO2 (test code = 26 mmol/L 22-32 02A) ANION GAP (test 10.8 mmol/L code = ANG) BUN (test code = 59 mg/dL 7-18 H 05D) CREATININE (test 1.9 mg/dL 0.7-1.3 H code = 03E) GFR (test code = 34 See_Comment L [Automated GFR) mL/min/1.73m\\S\\2 message] Th e system which generated this result transmit didi reference range : >=90. The reference range was not used to interpret this result as normal/abnormal . GFR 39 See_Comment L [Automated CANADIAN (test mL/min/1.73m\\S\\2 message] The code = GFRAA) system which generated this result transmit didi reference range : >=90. The reference range was not used to interpret this result as normal/abnormal . EGFR (test code = eGFR BY EGFR) CKD-EPI CALCULATION IS NOT RECOMMENDED FOR PATIENTS UNDER 18 YEARS OF AGE. BUN/CREA (test 30 12-20 H code = BCR) CALCIUM (test code 8.0 mg/dL 8.3-9.5 L = 09D) HEMOGLOBIN & [id number] 23:06:00 Test Item Value Reference Range Interpretation Comments HGB (test code = HBG) 9.8 g/dL 14.0-18.0 L HCT (test code = HCT) 29.3 % 35.0-46.0 L URINALYSIS WITH [id number] 18:03:00 Test Item Value Reference Range Interpretation Comments COLOR (test code = COLU) RED YELLOW A CLARITY (test code = CLA) TURBID CLEAR A GLUCOSE UR (test code = UA GLUCOSE) NEGATIVE NEGATIVE BILI UR (test code = BILE) 2+ NEGATIVE A KETONES UR (test code = CONSTANITN) 1+ NEGATIVE A SP GRAVITY (test code = SPGR) 1.014 1.005-1.030 PH UR (test code = PH) 6.0 4.5-8.0 PROTEIN UR (test code = PU) 2+ NEGATIVE A UROBIL UR (test code = UROQ) 1.0 EU/dL 0.2-1.0 NITRITE UR (test code = NITRITE) POSITIVE NEGATIVE A BLOOD UR (test code = UA BLOOD) 3+ NEGATIVE A LEUK ES UR (test code = LEUK) 2+ NEGATIVE A WBC UR (test code = UWBC) 8 /HPF 0-3 H RBC UR (test code = URBC) >100 /HPF 0-2 H EPITH UR (test code = UEPC) FEW /LPF NONE A BACTERIA UR (test code = UBACT) FEW /HPF NONE A CAST UR (test code = CAST) /LPF NONE CRYSTAL UR (test code = CRYU) / LPF NONE MUCUS UR (test code = MUC) / HPF NONE AMORPH UR (test code = EVELIA) / HPF NONE TRICH UR (test code = UTRICH) /HPF NONE YEAST UR (test code = UY) /HPF NONE SPERM UR (test code = USPERM) /HPF NONE HEMOGLOBIN & [id number] 17:52:00 Test Item Value Reference Range Interpretation Comments HGB (test code = HBG) 9.8 g/dL 14.0-18.0 L HCT (test code = HCT) 29.5 % 35.0-46.0 L SARS-CoV (RAPID ANTIGEN)2021-05-26 17:37:00 Test Item Value Reference Range Interpretation Comments SARS-CoV (ANTIGEN) POSITIVE NEGATIVE AA (test code = COVAG) COVID AG (test This test has been code = COVAGC) marketed under the FDA Emergency Use Authorization (EUA) to meet challenges of the COVID-19 pandemic. The validation standards normally enforced by the FDA and the [employer] of the [place] [employer] (CAP) are more stringent than those required for this test. Therefore, the result should be interpreted with caution and close attention to other clinical and epidemiological data OCCULT [id number] 17:29:00 Test Item Value Reference Range Interpretation Comments Direct Exam (test code NEGATIVE FOR OCCULT = DE3) BLOOD PRO TIME AND [id number] 15:54:00 Test Item Value Reference Range Interpretation Comments PT (test code = 11.9 s 9.8-13.6 TT) INR (test code = 1.0 INR) INRH (test code = SUGGESTED THERAPEUTIC INRH) RANGE FOR INR: 2.5 - 3.5 For Patients with Prosthetic Valves or Patients with recurrent Thromboembolic Events 2.0 - 3.0 For Most Other Applications PTT (test code = 32.2 s 20.2-38.0 PTT) PTTH (test code = To monitor the PTTH) effectiveness of heparin, we offer the Anti-Xa (Heparin Assay). It can be used for either unfractionated or LMW Heparin. Order Code is ANTI-XA COMPREHENSIVE METABOLIC [id number] 15:50:00 Test Item Value Reference Range Interpretation Comments GLUCOSE (test code 140 mg/dL 75-100 H = 06D) SODIUM (test code 141 mmol/L 136-145 = 01A) POTASSIUM (test 5.1 mmol/L 3.6-5.1 code = 01B) CHLORIDE (test 114 mmol/L 98-107 H code = 04A) CO2 (test code = 23 mmol/L 22-32 02A) ANION GAP (test 9.1 mmol/L code = ANG) BUN (test code = 56 mg/dL 7-18 H 05D) CREATININE (test 1.8 mg/dL 0.7-1.3 H code = 03E) GFR (test code = 36 See_Comment L [Automated GFR) mL/min/1.73m\\S\\2 message] Th e system which generated this result transmit didi reference range : >=90. The reference range was not used to interpret this result as normal/abnormal . GFR 42 See_Comment L [Automated CANADIAN (test mL/min/1.73m\\S\\2 message] The code = GFRAA) system which generated this result transmit didi reference range : >=90. The reference range was not used to interpret this result as normal/abnormal . EGFR (test code = eGFR BY EGFR) CKD-EPI CALCULATION IS NOT RECOMMENDED FOR PATIENTS UNDER 18 YEARS OF AGE. BUN/CREA (test 31 12-20 H code = BCR) CALCIUM (test code 7.1 mg/dL 8.3-9.5 L = 09D) BILI TOTAL (test 0.6 mg/dL 0.2-1.0 code = 11A) PROTEIN (test code 5.5 g/dL 6.4-8.2 L = 07D) ALBUMIN (test code 2.1 g/dL 3.5-4.8 L = 08D) GLOBULIN (test 3.4 g/dL 1.5-3.8 code = GLB) ALB/GLOB (test 0.6 1.0-2.6 L code = AGRR) ALK PHOS (test 137 IU/L 42-121 H code = 35A) AST (test code = 29 IU/L See_Comment [Automated 30A) message] The system which generated this result transmit didi reference range : <=42. The reference range was not used to interpret this result as normal/abnormal . ALT (test code = 32 IU/L See_Comment [Automated 31A) message] The system which generated this result transmit didi reference range : <=78. The reference range was not used to interpret this result as normal/abnormal . [id number] 15:50:00 Test Item Value Reference Range Interpretation Comments MAGNESIUM (test code = 48A) 1.8 mg/dL 1.8-2.4 CBC (INCLUDES AUTOMATED DIFFERENTIAL)2021-05-26 15:34:00 Test Item Value Reference Range Interpretation Comments WBC (test code = WBC) 2.6 10\\S\\3/uL 4.5-11.0 L RBC (test code = RBC) 1.60 10\\S\\6/uL 3.80-5.80 L HGB (test code = HBG) 5.0 g/dL 14.0-18.0 LL HCT (test code = HCT) 15.8 % 35.0-46.0 LL MCV (test code = MCV) 98.8 fL 80.0-94.0 H MCH (test code = MCH) 31.3 pg 27.0-31.0 H MCHC (test code = MCHC) 31.6 g/dL 32.0-36.0 L RDW (test code = RDW) 13.9 % 11.5-14.5 PLT (test code = PLT) 43 10\\S\\3/uL 130-400 L MPV (test code = MPV) 10.3 fL 9.4-12.4 NEUTROP # (test code = NE#) 2.0 10\\S\\3/uL 2.0-8.0 LYMPH # (test code = LY#) 0.3 10\\S\\3/uL 1.2-4.0 L MONOCYTE # (test code = MO#) 0.2 10\\S\\3/uL 0.0-1.1 EOSINOPH # (test code = EO#) 0.1 10\\S\\3/uL 0.0-0.7 BASOPHIL # (test code = BA#) 0.0 10\\S\\3/uL 0.0-0.3 IG # (test code = IG#) 0.02 10\\S\\3/uL 0.00-0.06 NRBC # (test code = NRBC#) 0.00 10\\S\\3/uL 0.00-0.01 NEUTROPH % (test code = NE%) 75.7 % 35.0-73.0 H LYMPH % (test code = LY%) 10.8 % 20.0-55.0 L MONO % (test code = MO%) 7.3 % 2.5-10.0 EOSINOPH % (test code = EO%) 5.0 % 0.0-5.0 BASOPHIL % (test code = BA%) 0.4 % 0.0-2.0 IG % (test code = IG%) 0.8 % 0.0-0.8 NRBC% (test code = NRBC%) 0.0 % 0.0-0.2 MANDIFF (test code = MDIFF) NO NO CT ABDOMEN AND PELVIS W/O [id number] 15:26:44 [facility] 1950 Sex: MEXAMINATION:CT ABDOMEN PELVIS WITHOUT IV CONTRAST.HISTORY: Bladder pain, urinary catheter change recently, 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 One or more the following dose reduction techniques were used: Autom ated exposure control, adjustment of mA and/or kV according to patient size, and use of iterative reconstruction technique.FINDINGS:Evaluation of intra-abdominal viscera is limited due to lack of oral and intravenous contrast.Visualized lung bases demonstrates dependent changes. Coronary arterial calcifications.The unenhanced liver, pancreas, and adrenal glands to be unremarkable. Borderline spleen at 14.1 cm. Cholelithiasis. Prominent mid CBD at 8 mm.Bilateral perinephric stranding, presumably senescent. No nephroureterolithiasis or hydroureteronephrosis. Urinary bladder contains air and dependenthyperdense material. Solano catheter balloon is noted within proximal penile urethra.The bowel loops appear normal in course and caliber. No bowel obstruction. Nonvisualization of appendix. Moderate stool throughout colon.No abdominal or pelvic bulky lymphadenopathy.No pneumoperitoneum or free fluid. Atherosclerotic vascular calcifications.Visualized osseous structures demonstrate degenerative changes.IMPRESSION: Solano catheter balloon is noted within proximal penile urethra.Hyperdense material within dependent portion of urinary bladder, presumably representing hemorrhage.Moderate stool throughout colon.Prominent CBD at 8 mm, correlate with LFTs. Cholelithiasis.Other findings as above.Findings discussed with Emir HAND at 05/26/2021 3:24 PM.Electronically signed by: Jacqueline Kevin MD 05/26/2021 3:26 PM CDT [id number],TONI 2021-05-17 13:44:00 Test Item Value Reference Range Interpretation Comments ARTERY,PLAQUE (test code = ART) --------RUN DATE: 05/17/21 [place] [email or web address] [facility] PAGE 1 RUN TIME: 1344 Specimen Inquiry RUN USER: INTERFACE --------PAT[facility]: [facility] [id number] AGE/SX: 70/M ROOM: [facility] RE04/28/21REG DR: Judd Dotson MD : 48 BED: A DIS: 05/14/21 STATUS: DIS IN TLOC: -------- SPEC #: [id number]:BALTAZAR:[id number] RECD: 05/09/21-1038 STATUS: KRANTHI RE #: [id number] AVERY: 05/08/21-[address] [facility] DR: Judd Dotson MD ENTERED: 05/09/21-1042 SP TYPE: ARTERY, PL OTHR DR: DOES_NOT KNOW Self Referred Ryne Aragon MD, Humair MD Peracha, Waseem MD Sankaranarayanan, Venkataraja n Ugbarugba,Raghavendra Whitney,Vincent ADAMSORDERED: DECAL, SURG PATH LVL 3, SURG PATH LVL 4 CODES: [id number] - PLAQUE, NOS [id number] - ATHEROSCLEROSIS [id number] - ARTERY, NOS [id number] - CERVIX EXCISION, NOS [id number] - LYMPH NODE, NOS COPIES TO: DOES_NOT KNOW [place] [address] [place] [address] [place] [address] [place] [address] [place] [address] [place] [address] [place] [address] [place] [address] [place] [address] [place] [address] CONTINUED ON NEXT PAGE --------RUN DATE: 05/17/21 [place] - [facility] PAGE 2 RUN TIME: 1344 Specimen Inquiry RUN USER: INTERFACE --------SPEC #: [id number]:BALTAZAR:[id number] PATIENT: MI MCKENNA #[id number] (Continued) COPIES TO: (Continued) [place] [address] [place] [address] [place] [address] [place] [address] [facility] backup # [phone] ICD CODES: 440 - PROCEDURES: DECAL (05/09/21) SURG PATH LVL 3 (05/09/21) SURG PATH LVL 4 (05/09/21) TISSUES: A. ARTERY, NOS - RT CAROTID PLAQUE B. LYMPH NODE, NOS - RT CERVICAL LYMPH NODE CPT CODES CPT CODE(S): 52303 , 91385 , 47554 , , , , FINAL DIAGNOSIS A. Right carotid plaque, endarterectomy: CALCIFIED ATHEROSCLEROTIC PLAQUE B. Lymph node, right cervical, excision: ONE BENIGN LYMPH NODE GROSS DESCRIPTION A. Right carotid plaque. Received is a segment of yellow-zavala plaque that measures 2.7 x 1 x 0.8 cm. Sectioning reveals a heavily calcified cut surface. [employer] section submitted for decalcification as A1. B. Right cervical lymph node. The specimen consists of a single node measuring 2.5 x 1 x 0.8 cm. It is serially sectioned and submitted entirely as B1 and B2. /tc/pdb CONTINUED ON NEXT PAGE --------RUN DATE: 05/17/21 [place] - LAB PAGE 3 RUN TIME: 1344 Specimen Inquiry RUN USER: INTERFACE --------SPEC #: [id number]:BALTAZAR:[id number] PATIENT: MI MCKENNA #[id number] (Continued) MICROSCOPIC DESCRIPTION A. Right carotid plaque. The microscopic description is incorporated into the final diagnosis. B. Right cervical lymph node. The microscopic description is incorporated into the final diagnosis. /pdb Signed SIGNATURE ON FILE Octavia Krueger 05/17/21 1344 -------- END OF REPORT CBC W/O [id number] 12:53:00 Test Item Value Reference Range Interpretation Comments WHITE BLOOD CELL (test code = 6.1 K/MM3 3.8-9.8 N WBC) RED BLOOD CELL (test code = 3.08 M/MM3 3.95-5.67 L RBC) HEMOGLOBIN (test code = HGB) 9.3 G/DL 12.4-16.7 L HEMATOCRIT (test code = HCT) 30.1 % 35.9-49.5 L MEAN CELL VOLUME (test code = 98 fL 81.7-96.1 H MCV) MEAN CELL HGB (test code = MCH) 30.2 pg 27.6-33.2 N MEAN CELL HGB CONCETRATION 30.9 % 32.9-35.5 L (test code = MCHC) RED CELL DISTRIBUTION WIDTH 14.6 % 12.1-15.2 N (test code = RDW) PLATELET COUNT (test code = 97 K/MM3 129-368 L PLT) NEUTROPHIL # (test code = NT#) 4.16 K/mm3 2.0-7.6 N IMMATURE GRANULOCYTE # (test 0.05 x10 3/uL 0-0.03 H code = IG#) LYMPHOCYTE # (test code = LY#) 0.62 K/mm3 1.0-3.8 L MONOCYTE # (test code = MO#) 0.52 K/mm3 0.1-0.8 N EOSINOPHIL # (test code = EO#) 0.68 K/mm3 0.0-0.2 H BASOPHIL # (test code = BA#) 0.04 K/mm3 0.0-0.2 N NUCLEATED RBC # (test code = 0.00 K/mm3 0.0-0.1 N NRBC#) WBC [id number] 12:53:00 Test Item Value Reference Range Interpretation Comments RBC MORPHOLOGY REQUIRED (test code NORMAL = RBCM) TOTAL CELLS COUNTED (test code = 130 #CELLS TCC) SEGMENTED NEUTROPHILS (test code = 74.8 % 36.2-73.8 H SEG) BAND NEUTROPHIL (test code = BAND) 0.0 % 0-10 N LYMPHOCYTE (test code = LYMPH) 7.9 % 12.9-45.1 L ATYPICAL LYMPH (test code = 0.0 % 0-0 N ALYMPH) MONOCYTE (test code = MON) 7.1 % 0-11 N EOSINOPHIL (test code = EOS) 7.9 % 1-7 H BASOPHIL (test code = BASO) 2.3 % 0-2 H PLATELET ESTIMATE (test code = DECREASED ADEQUATE PLTEST) PLATELET MORPHOLOGY (test code = NORMAL NORMAL PLTMORPH) GLUCOSE BEDSIDE [id number] 11:56:00 Test Item Value Reference Range Interpretation Comments GLUCOSE BEDSIDE TESTING (test code 193 MG/DL 60-99 H = GLUBED) GLUCOSE BEDSIDE [id number] 07:46:00 Test Item Value Reference Range Interpretation Comments GLUCOSE BEDSIDE TESTING (test code 127 MG/DL 60-99 H = GLUBED) BASIC METABOLIC [id number] 07:39:00 Test Item Value Reference Range Interpretation Comments SODIUM (test code = 135 MMOL/L 137-145 L NA) POTASSIUM (test code = 4.7 MMOL/L 3.5-5.1 N K) CHLORIDE (test code = 103 MMOL/L 98-107 N CL) CARBON DIOXIDE (test 29 MMOL/L 22-30 N code = CO2) GLUCOSE (test code = 127 MG/DL 74-106 H GLU) BLOOD UREA NITROGEN 62 MG/DL 9-20 H (test code = BUN) GLOMERULAR FILTRATION 45 Report ing units: RATE (test code = GFR) ml/mi n/1.73 m2 (Modified MDRD Formula)Referen ce Range: > or = 6 0 ml/min/1.73 m2 CREATININE (test code 1.80 MG/DL 0.66-1.25 H = CREAT) CALCIUM (test code = 8.7 MG/DL 8.4-10.2 N CA) CBC W/O [id number] 07:28:00 Test Item Value Reference Range Interpretation Comments WHITE BLOOD CELL (test code = 6.1 K/MM3 3.8-9.8 N WBC) RED BLOOD CELL (test code = 3.08 M/MM3 3.95-5.67 L RBC) HEMOGLOBIN (test code = HGB) 9.3 G/DL 12.4-16.7 L HEMATOCRIT (test code = HCT) 30.1 % 35.9-49.5 L MEAN CELL VOLUME (test code = 98 fL 81.7-96.1 H MCV) MEAN CELL HGB (test code = MCH) 30.2 pg 27.6-33.2 N MEAN CELL HGB CONCETRATION 30.9 % 32.9-35.5 L (test code = MCHC) RED CELL DISTRIBUTION WIDTH 14.6 % 12.1-15.2 N (test code = RDW) PLATELET COUNT (test code = 97 K/MM3 129-368 L PLT) NEUTROPHIL # (test code = NT#) 4.16 K/mm3 2.0-7.6 N IMMATURE GRANULOCYTE # (test 0.05 x10 3/uL 0-0.03 H code = IG#) LYMPHOCYTE # (test code = LY#) 0.62 K/mm3 1.0-3.8 L MONOCYTE # (test code = MO#) 0.52 K/mm3 0.1-0.8 N EOSINOPHIL # (test code = EO#) 0.68 K/mm3 0.0-0.2 H BASOPHIL # (test code = BA#) 0.04 K/mm3 0.0-0.2 N NUCLEATED RBC # (test code = 0.00 K/mm3 0.0-0.1 N NRBC#) WBC [id number] 07:28:00 Test Item Value Reference Range Interpretation Comments RBC MORPHOLOGY REQUIRED (test code = RBCM) TOTAL CELLS COUNTED (test code = TCC) #CELLS SEGMENTED NEUTROPHILS (test code = % 36.2-73.8 SEG) LYMPHOCYTE (test code = LYMPH) % 12.9-45.1 MONOCYTE (test code = MON) % 0-11 PLATELET ESTIMATE (test code = ADEQUATE PLTEST) PLATELET MORPHOLOGY (test code = NORMAL PLTMORPH) CBC W/AUTO [id number] 07:28:00 Test Item Value Reference Range Interpretation Comments WHITE BLOOD CELL (test code = 6.1 K/MM3 3.8-9.8 N WBC) RED BLOOD CELL (test code = 3.08 M/MM3 3.95-5.67 L RBC) HEMOGLOBIN (test code = HGB) 9.3 G/DL 12.4-16.7 L HEMATOCRIT (test code = HCT) 30.1 % 35.9-49.5 L MEAN CELL VOLUME (test code = 98 fL 81.7-96.1 H MCV) MEAN CELL HGB (test code = MCH) 30.2 pg 27.6-33.2 N MEAN CELL HGB CONCETRATION 30.9 % 32.9-35.5 L (test code = MCHC) RED CELL DISTRIBUTION WIDTH 14.6 % 12.1-15.2 N (test code = RDW) PLATELET COUNT (test code = 97 K/MM3 129-368 L PLT) MEAN PLATELET VOLUME (test code 10.1 fl 7.4-10.4 N = MPV) NEUTROPHIL % (test code = NT%) 68.5 % 43-75 N IMMATURE GRANULOCYTE % (test 0.8 % 0.0-2.0 N code = IG%) LYMPHOCYTE % (test code = LY%) 10.2 % 14-44 L MONOCYTE % (test code = MO%) 8.6 % 4-13 N EOSINOPHIL % (test code = EO%) 11.2 % 0-6 H BASOPHIL % (test code = BA%) 0.7 % 0-2 N NUCLEATED RBC % (test code = 0.0 % 0-1.0 N NRBC%) NEUTROPHIL # (test code = NT#) 4.16 K/mm3 2.0-7.6 N IMMATURE GRANULOCYTE # (test 0.05 x10 3/uL 0-0.03 H code = IG#) LYMPHOCYTE # (test code = LY#) 0.62 K/mm3 1.0-3.8 L MONOCYTE # (test code = MO#) 0.52 K/mm3 0.1-0.8 N EOSINOPHIL # (test code = EO#) 0.68 K/mm3 0.0-0.2 H BASOPHIL # (test code = BA#) 0.04 K/mm3 0.0-0.2 N NUCLEATED RBC # (test code = 0.00 K/mm3 0.0-0.1 N NRBC#) WBC [id number] 07:28:00 Test Item Value Reference Range Interpretation Comments RBC MORPHOLOGY REQUIRED (test code = RBCM) TOTAL CELLS COUNTED (test code = TCC) #CELLS SEGMENTED NEUTROPHILS (test code = % 36.2-73.8 SEG) LYMPHOCYTE (test code = LYMPH) % 12.9-45.1 MONOCYTE (test code = MON) % 0-11 PLATELET ESTIMATE (test code = ADEQUATE PLTEST) PLATELET MORPHOLOGY (test code = NORMAL PLTMORPH) GLUCOSE BEDSIDE [id number] 19:24:00 Test Item Value Reference Range Interpretation Comments GLUCOSE BEDSIDE TESTING (test code 147 MG/DL 60-99 H = GLUBED) GLUCOSE BEDSIDE [id number] 15:41:00 Test Item Value Reference Range Interpretation Comments GLUCOSE BEDSIDE TESTING (test code 156 MG/DL 60-99 H = GLUBED) COVID 19 Asymptomatic IH [id number] 13:49:00 Test Item Value Reference Range Interpretation Comments COVID 19 NEGATIVE Negative "Negative resu lts from Asymptomatic IH AG patients with symptom (test code = onset beyondfiv e days, COVNONPUIAG) should be treat ed as presumptive, andconfirmation with a molecular assay , if necessary forpa tient management may be performed. Nega tive results do notr ule out COVID-19 and sh ould not be used as the sole basisfor treatm ent or patient managem ent decisions, includinginfect ion control decisio ns. Negative result s should beconsidered in the context of a pa tients recent exposure s,history, and the presenc e of clinical signs and symptomsconsist ent with COVID-19.This t est detects both vi able andnon-viable S ARS-CoV and SARS CoV-2. Test performance dep endson the amount of virus (antigen) in the sample." NT PRO-BRAIN NATRIURETIC [id number] 13:28:00 Test Item Value Reference Range Interpretation Comments NT PRO-BRAIN NATRIURETIC PEPTI 3910.0 pg/mL 0-125 H (test code = PROBNP) GLUCOSE BEDSIDE [id number] 11:15:00 Test Item Value Reference Range Interpretation Comments GLUCOSE BEDSIDE TESTING (test code 195 MG/DL 60-99 H = GLUBED) GLUCOSE BEDSIDE [id number] 07:43:00 Test Item Value Reference Range Interpretation Comments GLUCOSE BEDSIDE TESTING (test code 148 MG/DL 60-99 H = GLUBED) BASIC METABOLIC [id number] 06:59:00 Test Item Value Reference Range Interpretation Comments SODIUM (test code = 136 MMOL/L 137-145 L NA) POTASSIUM (test code = 5.0 MMOL/L 3.5-5.1 N K) CHLORIDE (test code = 105 MMOL/L 98-107 N CL) CARBON DIOXIDE (test 26 MMOL/L 22-30 N code = CO2) GLUCOSE (test code = 142 MG/DL 74-106 H GLU) BLOOD UREA NITROGEN 65 MG/DL 9-20 H (test code = BUN) GLOMERULAR FILTRATION 38 Report ing units: RATE (test code = GFR) ml/mi n/1.73 m2 (Modified MDRD Formula)Referen ce Range: > or = 6 0 ml/min/1.73 m2 CREATININE (test code 2.10 MG/DL 0.66-1.25 H = CREAT) CALCIUM (test code = 8.3 MG/DL 8.4-10.2 L CA) CBC W/AUTO [id number] 06:34:00 Test Item Value Reference Range Interpretation Comments WHITE BLOOD CELL (test code = 5.0 K/MM3 3.8-9.8 N WBC) RED BLOOD CELL (test code = 2.87 M/MM3 3.95-5.67 L RBC) HEMOGLOBIN (test code = HGB) 8.9 G/DL 12.4-16.7 L HEMATOCRIT (test code = HCT) 28.1 % 35.9-49.5 L MEAN CELL VOLUME (test code = 98 fL 81.7-96.1 H MCV) MEAN CELL HGB (test code = MCH) 31.0 pg 27.6-33.2 N MEAN CELL HGB CONCETRATION 31.7 % 32.9-35.5 L (test code = MCHC) RED CELL DISTRIBUTION WIDTH 14.6 % 12.1-15.2 N (test code = RDW) PLATELET COUNT (test code = 89 K/MM3 129-368 L PLT) MEAN PLATELET VOLUME (test code 10.2 fl 7.4-10.4 N = MPV) NEUTROPHIL % (test code = NT%) 68.9 % 43-75 N IMMATURE GRANULOCYTE % (test 0.8 % 0.0-2.0 N code = IG%) LYMPHOCYTE % (test code = LY%) 10.7 % 14-44 L MONOCYTE % (test code = MO%) 9.1 % 4-13 N EOSINOPHIL % (test code = EO%) 9.9 % 0-6 H BASOPHIL % (test code = BA%) 0.6 % 0-2 N NUCLEATED RBC % (test code = 0.0 % 0-1.0 N NRBC%) NEUTROPHIL # (test code = NT#) 3.46 K/mm3 2.0-7.6 N IMMATURE GRANULOCYTE # (test 0.04 x10 3/uL 0-0.03 H code = IG#) LYMPHOCYTE # (test code = LY#) 0.54 K/mm3 1.0-3.8 L MONOCYTE # (test code = MO#) 0.46 K/mm3 0.1-0.8 N EOSINOPHIL # (test code = EO#) 0.50 K/mm3 0.0-0.2 H BASOPHIL # (test code = BA#) 0.03 K/mm3 0.0-0.2 N NUCLEATED RBC # (test code = 0.00 K/mm3 0.0-0.1 N NRBC#) GLUCOSE BEDSIDE [id number] 19:29:00 Test Item Value Reference Range Interpretation Comments GLUCOSE BEDSIDE TESTING (test code 180 MG/DL 60-99 H = GLUBED) GLUCOSE BEDSIDE [id number] 16:35:00 Test Item Value Reference Range Interpretation Comments GLUCOSE BEDSIDE TESTING (test code 150 MG/DL 60-99 H = GLUBED) GLUCOSE BEDSIDE [id number] 11:44:00 Test Item Value Reference Range Interpretation Comments GLUCOSE BEDSIDE TESTING (test code 149 MG/DL 60-99 H = GLUBED) CBC W/O [id number] 10:24:00 Test Item Value Reference Range Interpretation Comments WHITE BLOOD CELL (test code = 5.3 K/MM3 3.8-9.8 N WBC) RED BLOOD CELL (test code = 2.95 M/MM3 3.95-5.67 L RBC) HEMOGLOBIN (test code = HGB) 9.1 G/DL 12.4-16.7 L HEMATOCRIT (test code = HCT) 28.5 % 35.9-49.5 L MEAN CELL VOLUME (test code = 97 fL 81.7-96.1 H MCV) MEAN CELL HGB (test code = MCH) 30.8 pg 27.6-33.2 N MEAN CELL HGB CONCETRATION 31.9 % 32.9-35.5 L (test code = MCHC) RED CELL DISTRIBUTION WIDTH 14.9 % 12.1-15.2 N (test code = RDW) PLATELET COUNT (test code = 93 K/MM3 129-368 L PLT) NEUTROPHIL # (test code = NT#) 3.57 K/mm3 2.0-7.6 N IMMATURE GRANULOCYTE # (test 0.02 x10 3/uL 0-0.03 N code = IG#) LYMPHOCYTE # (test code = LY#) 0.57 K/mm3 1.0-3.8 L MONOCYTE # (test code = MO#) 0.57 K/mm3 0.1-0.8 N EOSINOPHIL # (test code = EO#) 0.53 K/mm3 0.0-0.2 H BASOPHIL # (test code = BA#) 0.02 K/mm3 0.0-0.2 N NUCLEATED RBC # (test code = 0.00 K/mm3 0.0-0.1 N NRBC#) WBC [id number] 10:24:00 Test Item Value Reference Range Interpretation Comments RBC MORPHOLOGY REQUIRED (test code NORMAL = RBCM) TOTAL CELLS COUNTED (test code = 130 #CELLS TCC) SEGMENTED NEUTROPHILS (test code = 77.3 % 36.2-73.8 H SEG) BAND NEUTROPHIL (test code = BAND) 0.0 % 0-10 N LYMPHOCYTE (test code = LYMPH) 9.2 % 12.9-45.1 L ATYPICAL LYMPH (test code = 0.0 % 0-0 N ALYMPH) MONOCYTE (test code = MON) 7.6 % 0-11 N EOSINOPHIL (test code = EOS) 4.2 % 1-7 N BASOPHIL (test code = BASO) 1.7 % 0-2 N PLATELET ESTIMATE (test code = DECREASED ADEQUATE PLTEST) PLATELET MORPHOLOGY (test code = NORMAL NORMAL PLTMORPH) BASIC METABOLIC [id number] 07:39:00 Test Item Value Reference Range Interpretation Comments SODIUM (test code = 132 MMOL/L 137-145 L NA) POTASSIUM (test code = 5.4 MMOL/L 3.5-5.1 H K) CHLORIDE (test code = 104 MMOL/L 98-107 N CL) CARBON DIOXIDE (test 25 MMOL/L 22-30 N code = CO2) GLUCOSE (test code = 128 MG/DL 74-106 H GLU) BLOOD UREA NITROGEN 62 MG/DL 9-20 H (test code = BUN) GLOMERULAR FILTRATION 33 Report ing units: RATE (test code = GFR) ml/mi n/1.73 m2 (Modified MDRD Formula)Referen ce Range: > or = 6 0 ml/min/1.73 m2 CREATININE (test code 2.40 MG/DL 0.66-1.25 H = CREAT) CALCIUM (test code = 8.0 MG/DL 8.4-10.2 L CA) CBC W/O [id number] 07:26:00 Test Item Value Reference Range Interpretation Comments WHITE BLOOD CELL (test code = 5.3 K/MM3 3.8-9.8 N WBC) RED BLOOD CELL (test code = 2.95 M/MM3 3.95-5.67 L RBC) HEMOGLOBIN (test code = HGB) 9.1 G/DL 12.4-16.7 L HEMATOCRIT (test code = HCT) 28.5 % 35.9-49.5 L MEAN CELL VOLUME (test code = 97 fL 81.7-96.1 H MCV) MEAN CELL HGB (test code = MCH) 30.8 pg 27.6-33.2 N MEAN CELL HGB CONCETRATION 31.9 % 32.9-35.5 L (test code = MCHC) RED CELL DISTRIBUTION WIDTH 14.9 % 12.1-15.2 N (test code = RDW) PLATELET COUNT (test code = 93 K/MM3 129-368 L PLT) NEUTROPHIL # (test code = NT#) 3.57 K/mm3 2.0-7.6 N IMMATURE GRANULOCYTE # (test 0.02 x10 3/uL 0-0.03 N code = IG#) LYMPHOCYTE # (test code = LY#) 0.57 K/mm3 1.0-3.8 L MONOCYTE # (test code = MO#) 0.57 K/mm3 0.1-0.8 N EOSINOPHIL # (test code = EO#) 0.53 K/mm3 0.0-0.2 H BASOPHIL # (test code = BA#) 0.02 K/mm3 0.0-0.2 N NUCLEATED RBC # (test code = 0.00 K/mm3 0.0-0.1 N NRBC#) WBC [id number] 07:26:00 Test Item Value Reference Range Interpretation Comments RBC MORPHOLOGY REQUIRED (test code = RBCM) TOTAL CELLS COUNTED (test code = TCC) #CELLS SEGMENTED NEUTROPHILS (test code = % 36.2-73.8 SEG) LYMPHOCYTE (test code = LYMPH) % 12.9-45.1 MONOCYTE (test code = MON) % 0-11 PLATELET ESTIMATE (test code = ADEQUATE PLTEST) PLATELET MORPHOLOGY (test code = NORMAL PLTMORPH) CBC W/AUTO [id number] 07:26:00 Test Item Value Reference Range Interpretation Comments WHITE BLOOD CELL (test code = 5.3 K/MM3 3.8-9.8 N WBC) RED BLOOD CELL (test code = 2.95 M/MM3 3.95-5.67 L RBC) HEMOGLOBIN (test code = HGB) 9.1 G/DL 12.4-16.7 L HEMATOCRIT (test code = HCT) 28.5 % 35.9-49.5 L MEAN CELL VOLUME (test code = 97 fL 81.7-96.1 H MCV) MEAN CELL HGB (test code = MCH) 30.8 pg 27.6-33.2 N MEAN CELL HGB CONCETRATION 31.9 % 32.9-35.5 L (test code = MCHC) RED CELL DISTRIBUTION WIDTH 14.9 % 12.1-15.2 N (test code = RDW) PLATELET COUNT (test code = 93 K/MM3 129-368 L PLT) MEAN PLATELET VOLUME (test code 10.3 fl 7.4-10.4 N = MPV) NEUTROPHIL % (test code = NT%) 67.6 % 43-75 N IMMATURE GRANULOCYTE % (test 0.4 % 0.0-2.0 N code = IG%) LYMPHOCYTE % (test code = LY%) 10.8 % 14-44 L MONOCYTE % (test code = MO%) 10.8 % 4-13 N EOSINOPHIL % (test code = EO%) 10.0 % 0-6 H BASOPHIL % (test code = BA%) 0.4 % 0-2 N NUCLEATED RBC % (test code = 0.0 % 0-1.0 N NRBC%) NEUTROPHIL # (test code = NT#) 3.57 K/mm3 2.0-7.6 N IMMATURE GRANULOCYTE # (test 0.02 x10 3/uL 0-0.03 N code = IG#) LYMPHOCYTE # (test code = LY#) 0.57 K/mm3 1.0-3.8 L MONOCYTE # (test code = MO#) 0.57 K/mm3 0.1-0.8 N EOSINOPHIL # (test code = EO#) 0.53 K/mm3 0.0-0.2 H BASOPHIL # (test code = BA#) 0.02 K/mm3 0.0-0.2 N NUCLEATED RBC # (test code = 0.00 K/mm3 0.0-0.1 N NRBC#) WBC [id number] 07:26:00 Test Item Value Reference Range Interpretation Comments RBC MORPHOLOGY REQUIRED (test code = RBCM) TOTAL CELLS COUNTED (test code = TCC) #CELLS SEGMENTED NEUTROPHILS (test code = % 36.2-73.8 SEG) LYMPHOCYTE (test code = LYMPH) % 12.9-45.1 MONOCYTE (test code = MON) % 0-11 PLATELET ESTIMATE (test code = ADEQUATE PLTEST) PLATELET MORPHOLOGY (test code = NORMAL PLTMORPH) GLUCOSE BEDSIDE [id number] 07:17:00 Test Item Value Reference Range Interpretation Comments GLUCOSE BEDSIDE TESTING (test code 114 MG/DL 60-99 H = GLUBED) GLUCOSE BEDSIDE [id number] 19:36:00 Test Item Value Reference Range Interpretation Comments GLUCOSE BEDSIDE TESTING (test code 217 MG/DL 60-99 H = GLUBED) GLUCOSE BEDSIDE [id number] 17:34:00 Test Item Value Reference Range Interpretation Comments GLUCOSE BEDSIDE TESTING (test code 173 MG/DL 60-99 H = GLUBED) GLUCOSE BEDSIDE [id number] 11:21:00 Test Item Value Reference Range Interpretation Comments GLUCOSE BEDSIDE TESTING (test code 163 MG/DL 60-99 H = GLUBED) GLUCOSE BEDSIDE [id number] 08:07:00 Test Item Value Reference Range Interpretation Comments GLUCOSE BEDSIDE TESTING (test code 113 MG/DL 60-99 H = GLUBED) BASIC METABOLIC [id number] 05:23:00 Test Item Value Reference Range Interpretation Comments SODIUM (test code = 133 MMOL/L 137-145 L NA) POTASSIUM (test code = 5.1 MMOL/L 3.5-5.1 N K) CHLORIDE (test code = 105 MMOL/L 98-107 N CL) CARBON DIOXIDE (test 23 MMOL/L 22-30 N code = CO2) ANION GAP (test code = 10 MMOL/L 14-24 L GAP) GLUCOSE (test code = 122 MG/DL 74-106 H GLU) BLOOD UREA NITROGEN 55 MG/DL 9-20 H (test code = BUN) GLOMERULAR FILTRATION 27 Report ing units: RATE (test code = GFR) ml/mi n/1.73 m2 (Modified MDRD Formula)Referen ce Range: > or = 6 0 ml/min/1.73 m2 CREATININE (test code 2.80 MG/DL 0.66-1.25 H = CREAT) CALCIUM (test code = 7.7 MG/DL 8.4-10.2 L CA) CBC W/AUTO [id number] 05:12:00 Test Item Value Reference Range Interpretation Comments WHITE BLOOD CELL (test code = 5.7 K/MM3 3.8-9.8 N WBC) RED BLOOD CELL (test code = 2.78 M/MM3 3.95-5.67 L RBC) HEMOGLOBIN (test code = HGB) 8.5 G/DL 12.4-16.7 L HEMATOCRIT (test code = HCT) 27.4 % 35.9-49.5 L MEAN CELL VOLUME (test code = 99 fL 81.7-96.1 H MCV) MEAN CELL HGB (test code = MCH) 30.6 pg 27.6-33.2 N MEAN CELL HGB CONCETRATION 31.0 % 32.9-35.5 L (test code = MCHC) RED CELL DISTRIBUTION WIDTH 15.1 % 12.1-15.2 N (test code = RDW) PLATELET COUNT (test code = 96 K/MM3 129-368 L PLT) MEAN PLATELET VOLUME (test code 10.0 fl 7.4-10.4 N = MPV) NEUTROPHIL % (test code = NT%) 71.0 % 43-75 N IMMATURE GRANULOCYTE % (test 0.5 % 0.0-2.0 N code = IG%) LYMPHOCYTE % (test code = LY%) 12.3 % 14-44 L MONOCYTE % (test code = MO%) 9.1 % 4-13 N EOSINOPHIL % (test code = EO%) 6.7 % 0-6 H BASOPHIL % (test code = BA%) 0.4 % 0-2 N NUCLEATED RBC % (test code = 0.0 % 0-1.0 N NRBC%) NEUTROPHIL # (test code = NT#) 4.06 K/mm3 2.0-7.6 N IMMATURE GRANULOCYTE # (test 0.03 x10 3/uL 0-0.03 N code = IG#) LYMPHOCYTE # (test code = LY#) 0.70 K/mm3 1.0-3.8 L MONOCYTE # (test code = MO#) 0.52 K/mm3 0.1-0.8 N EOSINOPHIL # (test code = EO#) 0.38 K/mm3 0.0-0.2 H BASOPHIL # (test code = BA#) 0.02 K/mm3 0.0-0.2 N NUCLEATED RBC # (test code = 0.00 K/mm3 0.0-0.1 N NRBC#) GLUCOSE BEDSIDE [id number] 20:30:00 Test Item Value Reference Range Interpretation Comments GLUCOSE BEDSIDE TESTING (test code 176 MG/DL 60-99 H = GLUBED) GLUCOSE BEDSIDE [id number] 17:18:00 Test Item Value Reference Range Interpretation Comments GLUCOSE BEDSIDE TESTING (test code 144 MG/DL 60-99 H = GLUBED) GLUCOSE BEDSIDE [id number] 11:49:00 Test Item Value Reference Range Interpretation Comments GLUCOSE BEDSIDE TESTING (test code 182 MG/DL 60-99 H = GLUBED) GLUCOSE BEDSIDE [id number] 08:13:00 Test Item Value Reference Range Interpretation Comments GLUCOSE BEDSIDE TESTING (test code 147 MG/DL 60-99 H = GLUBED) BASIC METABOLIC [id number] 05:33:00 Test Item Value Reference Range Interpretation Comments SODIUM (test code = 133 MMOL/L 137-145 L NA) POTASSIUM (test code = 4.9 MMOL/L 3.5-5.1 N K) CHLORIDE (test code = 107 MMOL/L 98-107 N CL) CARBON DIOXIDE (test 20 MMOL/L 22-30 L code = CO2) GLUCOSE (test code = 170 MG/DL 74-106 H GLU) BLOOD UREA NITROGEN 45 MG/DL 9-20 H (test code = BUN) GLOMERULAR FILTRATION 27 Report ing units: RATE (test code = GFR) ml/mi n/1.73 m2 (Modified MDRD Formula)Referen ce Range: > or = 6 0 ml/min/1.73 m2 CREATININE (test code 2.80 MG/DL 0.66-1.25 H = CREAT) CALCIUM (test code = 7.6 MG/DL 8.4-10.2 L CA) [id number] 05:33:00 Test Item Value Reference Range Interpretation Comments PHOSPHOROUS (test code = PHOS) 4.6 MG/DL 2.5-4.5 H [id number] 05:33:00 Test Item Value Reference Range Interpretation Comments MAGNESIUM (test code = MAG) 2.0 MG/DL 1.6-2.3 N CBC W/AUTO [id number] 05:18:00 Test Item Value Reference Range Interpretation Comments WHITE BLOOD CELL (test code = 7.8 K/MM3 3.8-9.8 N WBC) RED BLOOD CELL (test code = 2.83 M/MM3 3.95-5.67 L RBC) HEMOGLOBIN (test code = HGB) 8.8 G/DL 12.4-16.7 L HEMATOCRIT (test code = HCT) 27.2 % 35.9-49.5 L MEAN CELL VOLUME (test code = 96 fL 81.7-96.1 N MCV) MEAN CELL HGB (test code = MCH) 31.1 pg 27.6-33.2 N MEAN CELL HGB CONCETRATION 32.4 % 32.9-35.5 L (test code = MCHC) RED CELL DISTRIBUTION WIDTH 14.8 % 12.1-15.2 N (test code = RDW) PLATELET COUNT (test code = 99 K/MM3 129-368 L PLT) MEAN PLATELET VOLUME (test code 9.3 fl 7.4-10.4 N = MPV) NEUTROPHIL % (test code = NT%) 82.7 % 43-75 H IMMATURE GRANULOCYTE % (test 0.5 % 0.0-2.0 N code = IG%) LYMPHOCYTE % (test code = LY%) 5.2 % 14-44 L MONOCYTE % (test code = MO%) 6.1 % 4-13 N EOSINOPHIL % (test code = EO%) 5.2 % 0-6 N BASOPHIL % (test code = BA%) 0.3 % 0-2 N NUCLEATED RBC % (test code = 0.0 % 0-1.0 N NRBC%) NEUTROPHIL # (test code = NT#) 6.42 K/mm3 2.0-7.6 N IMMATURE GRANULOCYTE # (test 0.04 x10 3/uL 0-0.03 H code = IG#) LYMPHOCYTE # (test code = LY#) 0.40 K/mm3 1.0-3.8 L MONOCYTE # (test code = MO#) 0.47 K/mm3 0.1-0.8 N EOSINOPHIL # (test code = EO#) 0.40 K/mm3 0.0-0.2 H BASOPHIL # (test code = BA#) 0.02 K/mm3 0.0-0.2 N NUCLEATED RBC # (test code = 0.00 K/mm3 0.0-0.1 N NRBC#) GLUCOSE BEDSIDE [id number] 20:31:00 Test Item Value Reference Range Interpretation Comments GLUCOSE BEDSIDE TESTING (test code 240 MG/DL 60-99 H = GLUBED) GLUCOSE BEDSIDE [id number] 17:00:00 Test Item Value Reference Range Interpretation Comments GLUCOSE BEDSIDE TESTING (test code 227 MG/DL 60-99 H = GLUBED) GASTRIC,[id number] 13:37:00 Test Item Value Reference Range Interpretation Comments GASTRIC,BIOPSY (test code = GASTB) RUN DATE: 05/09/21 [facility] [place] 1 RUN TIME: 1338 Specimen Inquiry RUN USER: INTERFACE PATIENT: MI MCKENNA LOC: ZACKARY U #: [id number] AGE/SX: 70/M ROOM: [facility] RE04/28/[facility] DR: Judd Dotson MD : 48 BED: A DIS: STATUS: ADM IN TLOC: SPEC #: [id number] RECD: 05/04/21 STATUS: KRANTHI ELIZABETH #: [id number] AVERY: 05/04/[address] [facility] DR: Judd Dotson MD ENTERED: 05/04/21 SP TYPE: GASTRIC BX OTHR DR: DOES_NOT KNOW Self Referred Ryne Aragon MD, Humair [facility] Raghavendra Mitchell MDORDERED: SURG PATH [facility] 4 CODES: [id number] [id number] - STOMACH, NOS BIOPSY, NOS [id number] - GASTRIC ANTRUM COPIES TO: DOES_NOT KNOW [place] [address] [place] [address] [place] [address] [place] [phone] [place] [address] [place] [phone] [address] [place] [address] [place] [address] [place], [place] [id number] PROCEDURES: SURG PATH LVL 4 (05/04/21-1651) CONTINUED ON NEXT PAGE RUN DATE: 05/09/21 [facility] PAGE 2 RUN TIME: 1338 Specimen Inquiry RUN USER: INTERFACE SPEC #: [id number] PATIENT: MI MCKENNA #[id number] (Continued) TISSUES: A. 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 Received are two tissue fragments, 2 mm and 5 mm, all as A1. /tc/phoebe MICROSCOPIC DESCRIPTION Gastric biopsy. The biopsy shows gastric mucosa with an increased number of plasma cells in the lamina propria. There is no activity, intestinal metaplasia, dysplasia or malignancy. No Helicobacter pylori is identified. /phoebe Signed SIGNATURE ON FILE Octavia Krueger 05/09/21 1337 END OF REPORT GLUCOSE BEDSIDE [id number] 11:50:00 Test Item Value Reference Range Interpretation Comments GLUCOSE BEDSIDE TESTING (test code 200 MG/DL 60-99 H = GLUBED) GLUCOSE BEDSIDE [id number] 08:03:00 Test Item Value Reference Range Interpretation Comments GLUCOSE BEDSIDE TESTING (test code 216 MG/DL 60-99 H = GLUBED) - CHEST [id number] 06:07:00 [facility] 1950 Sex: M Patient Name: CLARISACEDRICMI Unit No: [id number] EXAMS: CPT CODE: [id number] XR CHEST 1V 07813 Dictation location: H37. CHEST, FRONTAL VIEW HISTORY: post op surgery FINDINGS: Since 05/08/21, left subclavian lineremains in the SVC. Probable drain along the right neck extending into the upper chest. The lungs are clear. The heart is mildly enlarged. Aorta is partially calcified. Degenerative changes affect the thoracic spine. IMPRESSION: Stable left subclavian line and right neck drain. Cardiomegaly without pulmonary edema. at 0607 Reported and signed by: Manjit aRmirez MD CC: Aleksandra HAND Technologist: Sebastian Molina RT(R) Transcrpt Date/Tm/Trnsp: 05/09/2021 (606) [id number].[email or web address] Orig Print D/T: S: 05/09/2021 (609) [facility] NAME: MI MCKENNA [address] [place] [address] PHYS: [place] [address] : 1950 AGE: 70 SEX: M LOC: Z.SI09 A PHONE #: [phone] EXAM DATE: 05/09/2021 STATUS: ADM IN FAX #: [phone] RADIOLOGY NO: PAGE 1 Signed ReportBASIC METABOLIC [id number] 04:16:00 Test Item Value Reference Range Interpretation Comments SODIUM (test code = 134 MMOL/L 137-145 L NA) POTASSIUM (test code = 5.7 MMOL/L 3.5-5.1 H K) CHLORIDE (test code = 109 MMOL/L 98-107 H CL) CARBON DIOXIDE (test 18 MMOL/L 22-30 L code = CO2) ANION GAP (test code = 13 MMOL/L 14-24 L GAP) GLUCOSE (test code = 248 MG/DL 74-106 H GLU) BLOOD UREA NITROGEN 42 MG/DL 9-20 H (test code = BUN) GLOMERULAR FILTRATION 36 Report ing units: RATE (test code = GFR) ml/mi n/1.73 m2 (Modified MDRD Formula)Referen ce Range: > or = 6 0 ml/min/1.73 m2 CREATININE (test code 2.20 MG/DL 0.66-1.25 H = CREAT) CALCIUM (test code = 8.0 MG/DL 8.4-10.2 L CA) [id number] 04:16:00 Test Item Value Reference Range Interpretation Comments MAGNESIUM (test code = MAG) 2.1 MG/DL 1.6-2.3 N CBC W/AUTO [id number] 03:48:00 Test Item Value Reference Range Interpretation Comments WHITE BLOOD CELL (test code = 8.9 K/MM3 3.8-9.8 N WBC) RED BLOOD CELL (test code = 3.25 M/MM3 3.95-5.67 L RBC) HEMOGLOBIN (test code = HGB) 10.0 G/DL 12.4-16.7 L HEMATOCRIT (test code = HCT) 31.0 % 35.9-49.5 L MEAN CELL VOLUME (test code = 95 fL 81.7-96.1 N MCV) MEAN CELL HGB (test code = MCH) 30.8 pg 27.6-33.2 N MEAN CELL HGB CONCETRATION 32.3 % 32.9-35.5 L (test code = MCHC) RED CELL DISTRIBUTION WIDTH 14.9 % 12.1-15.2 N (test code = RDW) PLATELET COUNT (test code = 112 K/MM3 129-368 L PLT) MEAN PLATELET VOLUME (test code 9.8 fl 7.4-10.4 N = MPV) NEUTROPHIL % (test code = NT%) 92.3 % 43-75 H IMMATURE GRANULOCYTE % (test 0.6 % 0.0-2.0 N code = IG%) LYMPHOCYTE % (test code = LY%) 2.8 % 14-44 L MONOCYTE % (test code = MO%) 3.9 % 4-13 L EOSINOPHIL % (test code = EO%) 0.1 % 0-6 N BASOPHIL % (test code = BA%) 0.3 % 0-2 N NUCLEATED RBC % (test code = 0.0 % 0-1.0 N NRBC%) NEUTROPHIL # (test code = NT#) 8.24 K/mm3 2.0-7.6 H IMMATURE GRANULOCYTE # (test 0.05 x10 3/uL 0-0.03 H code = IG#) LYMPHOCYTE # (test code = LY#) 0.25 K/mm3 1.0-3.8 L MONOCYTE # (test code = MO#) 0.35 K/mm3 0.1-0.8 N EOSINOPHIL # (test code = EO#) 0.01 K/mm3 0.0-0.2 N BASOPHIL # (test code = BA#) 0.03 K/mm3 0.0-0.2 N NUCLEATED RBC # (test code = 0.00 K/mm3 0.0-0.1 N NRBC#) GLUCOSE BEDSIDE [id number] 20:45:00 Test Item Value Reference Range Interpretation Comments GLUCOSE BEDSIDE TESTING (test code 287 MG/DL 60-99 H = GLUBED) GLUCOSE BEDSIDE [id number] 16:13:00 Test Item Value Reference Range Interpretation Comments GLUCOSE BEDSIDE TESTING (test code 207 MG/DL 60-99 H = GLUBED) BASIC METABOLIC [id number] 14:10:00 Test Item Value Reference Range Interpretation Comments SODIUM (test code = 137 MMOL/L 137-145 N NA) POTASSIUM (test code = 4.9 MMOL/L 3.5-5.1 N K) CHLORIDE (test code = 109 MMOL/L 98-107 H CL) CARBON DIOXIDE (test 23 MMOL/L 22-30 N code = CO2) GLUCOSE (test code = 126 MG/DL 74-106 H GLU) BLOOD UREA NITROGEN 39 MG/DL 9-20 H (test code = BUN) GLOMERULAR FILTRATION 38 Report ing units: RATE (test code = GFR) ml/mi n/1.73 m2 (Modified MDRD Formula)Referen ce Range: > or = 6 0 ml/min/1.73 m2 CREATININE (test code 2.10 MG/DL 0.66-1.25 H = CREAT) CALCIUM (test code = 8.2 MG/DL 8.4-10.2 L CA) [id number] 14:10:00 Test Item Value Reference Range Interpretation Comments MAGNESIUM (test code = MAG) 1.9 MG/DL 1.6-2.3 N CBC W/AUTO [id number] 13:51:00 Test Item Value Reference Range Interpretation Comments WHITE BLOOD CELL (test code = 8.8 K/MM3 3.8-9.8 N WBC) RED BLOOD CELL (test code = 3.19 M/MM3 3.95-5.67 L RBC) HEMOGLOBIN (test code = HGB) 9.7 G/DL 12.4-16.7 L HEMATOCRIT (test code = HCT) 31.2 % 35.9-49.5 L MEAN CELL VOLUME (test code = 98 fL 81.7-96.1 H MCV) MEAN CELL HGB (test code = MCH) 30.4 pg 27.6-33.2 N MEAN CELL HGB CONCETRATION 31.1 % 32.9-35.5 L (test code = MCHC) RED CELL DISTRIBUTION WIDTH 14.9 % 12.1-15.2 N (test code = RDW) PLATELET COUNT (test code = 100 K/MM3 129-368 L PLT) MEAN PLATELET VOLUME (test code 9.9 fl 7.4-10.4 N = MPV) NEUTROPHIL % (test code = NT%) 86.0 % 43-75 H IMMATURE GRANULOCYTE % (test 1.0 % 0.0-2.0 N code = IG%) LYMPHOCYTE % (test code = LY%) 4.6 % 14-44 L MONOCYTE % (test code = MO%) 4.2 % 4-13 N EOSINOPHIL % (test code = EO%) 3.7 % 0-6 N BASOPHIL % (test code = BA%) 0.5 % 0-2 N NUCLEATED RBC % (test code = 0.0 % 0-1.0 N NRBC%) NEUTROPHIL # (test code = NT#) 7.58 K/mm3 2.0-7.6 N IMMATURE GRANULOCYTE # (test 0.09 x10 3/uL 0-0.03 H code = IG#) LYMPHOCYTE # (test code = LY#) 0.41 K/mm3 1.0-3.8 L MONOCYTE # (test code = MO#) 0.37 K/mm3 0.1-0.8 N EOSINOPHIL # (test code = EO#) 0.33 K/mm3 0.0-0.2 H BASOPHIL # (test code = BA#) 0.04 K/mm3 0.0-0.2 N NUCLEATED RBC # (test code = 0.00 K/mm3 0.0-0.1 N NRBC#) - XR CHEST [id number] 13:28:00 [facility] 1950 Sex: M Patient Name: MI MCKENNA Unit No: [id number] EXAMS: CPT CODE: [id number] XR CHEST 1V 82386 B2 EXAM: - XR CHEST 1V HISTORY: post op surgery COMPARISON: 05/07/2021 FINDINGS: Interval placement of a left subclavian central line with its tip projected over the superior vena cava. Patchy perihilar airspace opacities. No pleural effusion or pneumothorax. The cardiac silhouette is within normal limits. No acute osseous abnormalities. IMPRESSION: 1. Left subclavian central line in place. 2. Mild perihilar atelectasis and/or pulmonary edema. at 1328 Reported and signed by: Pranay Doe MD CC: Aleksandra HAND Technologist: Diana Delgadillo Transcrpt Date/Tm/Trnsp: 05/08/2021 (1328) [id number] Orig Print D/T: S: 05/08/2021 (1642) [facility] NAME: MI MCKENNA [address] [address] PHYS: [place] [address] : 1950 AGE: 70 SEX: M LOC: Z.SI09 A PHONE #: [phone] EXAM DATE: 05/08/2021 STATUS: ADM IN FAX #: [phone] RADIOLOGY NO: PAGE 1 Signed ReportGLUCOSE BEDSIDE [id number] 12:31:00 Test Item Value Reference Range Interpretation Comments GLUCOSE BEDSIDE TESTING (test code 127 MG/DL 60-99 H = GLUBED) BASIC METABOLIC [id number] 12:21:00 Test Item Value Reference Range Interpretation Comments SODIUM (test code = 137 MMOL/L 137-145 N NA) POTASSIUM (test code = 4.9 MMOL/L 3.5-5.1 N K) CHLORIDE (test code = 110 MMOL/L 98-107 H CL) CARBON DIOXIDE (test 22 MMOL/L 22-30 N code = CO2) ANION GAP (test code = 10 MMOL/L 14-24 L GAP) GLUCOSE (test code = 119 MG/DL 74-106 H GLU) BLOOD UREA NITROGEN 39 MG/DL 9-20 H (test code = BUN) GLOMERULAR FILTRATION 36 Report ing units: RATE (test code = GFR) ml/mi n/1.73 m2 (Modified MDRD Formula)Referen ce Range: > or = 6 0 ml/min/1.73 m2 CREATININE (test code 2.20 MG/DL 0.66-1.25 H = CREAT) CALCIUM (test code = 8.2 MG/DL 8.4-10.2 L CA) CBC W/AUTO [id number] 12:08:00 Test Item Value Reference Range Interpretation Comments WHITE BLOOD CELL (test code = 3.3 K/MM3 3.8-9.8 L WBC) RED BLOOD CELL (test code = 3.35 M/MM3 3.95-5.67 L RBC) HEMOGLOBIN (test code = HGB) 10.3 G/DL 12.4-16.7 L HEMATOCRIT (test code = HCT) 32.2 % 35.9-49.5 L MEAN CELL VOLUME (test code = 96 fL 81.7-96.1 N MCV) MEAN CELL HGB (test code = MCH) 30.7 pg 27.6-33.2 N MEAN CELL HGB CONCETRATION 32.0 % 32.9-35.5 L (test code = MCHC) RED CELL DISTRIBUTION WIDTH 14.9 % 12.1-15.2 N (test code = RDW) PLATELET COUNT (test code = 111 K/MM3 129-368 L PLT) MEAN PLATELET VOLUME (test code 9.6 fl 7.4-10.4 N = MPV) NEUTROPHIL % (test code = NT%) 68.5 % 43-75 N IMMATURE GRANULOCYTE % (test 1.8 % 0.0-2.0 N code = IG%) LYMPHOCYTE % (test code = LY%) 21.9 % 14-44 N MONOCYTE % (test code = MO%) 4.2 % 4-13 N EOSINOPHIL % (test code = EO%) 3.0 % 0-6 N BASOPHIL % (test code = BA%) 0.6 % 0-2 N NUCLEATED RBC % (test code = 0.0 % 0-1.0 N NRBC%) NEUTROPHIL # (test code = NT#) 2.28 K/mm3 2.0-7.6 N IMMATURE GRANULOCYTE # (test 0.06 x10 3/uL 0-0.03 H code = IG#) LYMPHOCYTE # (test code = LY#) 0.73 K/mm3 1.0-3.8 L MONOCYTE # (test code = MO#) 0.14 K/mm3 0.1-0.8 N EOSINOPHIL # (test code = EO#) 0.10 K/mm3 0.0-0.2 N BASOPHIL # (test code = BA#) 0.02 K/mm3 0.0-0.2 N NUCLEATED RBC # (test code = 0.00 K/mm3 0.0-0.1 N NRBC#) POC ARTERIAL BLOOD [id number] 12:02:00 Test Item Value Reference Range Interpretation Comments POC ARTERIAL BLOOD GAS PH 7.319 7.35-7.45 L (test code = POCPHA) POC ARTERIAL BLOOD GAS PCO2 44.0 mmHg 35.0-45.0 N (test code = LWHYVS6H) POC ARTERIAL BLOOD GAS PO2 239.3 75.0-100.0 HH (test code = GDITR9M) POC HCO3 ARTERIAL (test 22.6 MMOL/L 20.0-26.0 N code = QPUEAQ0I) POC BASE EXCESS (test code -3.3 MMOL/L -3.0-3.0 L = POCBEA) POC O2 SATURATION (test 99.8 % 92.0-98.5 H code = POCO2S) FIO2 (test code = FIO2A) 100 % 21-100 N PaO2/FiO2 (test code = 239.30 mm/Hg [id number]) SODIUM (test code = NA/ABG) 141 MMOL/L 135-141 N POTASSIUM (test code = 4.9 MMOL/L 3.7-4.7 H K/ABG) CHLORIDE (test code = 110 MEQ/L CL/ABG) POC IONIZED CALCIUM (test 1.19 MMOL/L 1.13-1.32 N code = POCCA) POC GLUCOSE (test code = 118 MG/DL 60-99 H POCGLU) POC SAMPLE SOURCE (test Arterial Descript Specimen code = POCSAMPLE) LACTIC ACID POC (test code 0.74 mmol/L 0.7-2.0 N = LACTP) [id number] 12:01:00 Test Item Value Reference Range Interpretation Comments GLUCOSE (test code = GLU) 123 MG/DL 74-106 H CALL OR 7 W/ [id number] 11:44:00 Test Item Value Reference Range Interpretation Comments HEMOGLOBIN (test code = HGB) 10.6 G/DL 12.4-16.7 L CALL OR 7 W/ [id number] 11:44:00 Test Item Value Reference Range Interpretation Comments HEMATOCRIT (test code = HCT) 32.7 % 35.9-49.5 L CALL OR 7 W/ RESULTSPOC ARTERIAL BLOOD [id number] 11:21:00 Test Item Value Reference Range Interpretation Comments POC ARTERIAL BLOOD GAS PH 7.357 7.35-7.45 N (test code = POCPHA) POC ARTERIAL BLOOD GAS PCO2 40.4 mmHg 35.0-45.0 N (test code = IMTVNU4B) POC ARTERIAL BLOOD GAS PO2 181.9 75.0-100.0 H (test code = FPYQJ8N) POC HCO3 ARTERIAL (test 22.6 MMOL/L 20.0-26.0 N code = LYCZGM8I) POC BASE EXCESS (test code -2.7 MMOL/L -3.0-3.0 N = POCBEA) POC O2 SATURATION (test 99.6 % 92.0-98.5 H code = POCO2S) FIO2 (test code = FIO2A) 100 % 21-100 N PaO2/FiO2 (test code = 181.90 mm/Hg NNO8DHH2) SODIUM (test code = NA/ABG) 140 MMOL/L 135-141 N POTASSIUM (test code = 4.9 MMOL/L 3.7-4.7 H K/ABG) CHLORIDE (test code = 111 MEQ/L CL/ABG) POC IONIZED CALCIUM (test 1.26 MMOL/L 1.13-1.32 N code = POCCA) POC GLUCOSE (test code = 119 MG/DL 60-99 H POCGLU) POC SAMPLE SOURCE (test Arterial Descript Specimen code = POCSAMPLE) LACTIC ACID POC (test code 0.51 mmol/L 0.7-2.0 L = LACTP) GLUCOSE BEDSIDE [id number] 08:10:00 Test Item Value Reference Range Interpretation Comments GLUCOSE BEDSIDE TESTING (test code 109 MG/DL 60-99 H = GLUBED) GLUCOSE BEDSIDE [id number] 06:59:00 Test Item Value Reference Range Interpretation Comments GLUCOSE BEDSIDE TESTING (test code 111 MG/DL 60-99 H = GLUBED) GLUCOSE BEDSIDE [id number] 21:20:00 Test Item Value Reference Range Interpretation Comments GLUCOSE BEDSIDE TESTING (test code 147 MG/DL 60-99 H = GLUBED) GLUCOSE BEDSIDE [id number] 15:36:00 Test Item Value Reference Range Interpretation Comments GLUCOSE BEDSIDE TESTING 228 MG/DL 60-99 H Noti fied Nurse~ (test code = GLUBED) BASIC METABOLIC [id number] 15:07:00 Test Item Value Reference Range Interpretation Comments SODIUM (test code = 137 MMOL/L 137-145 N NA) POTASSIUM (test code = 4.9 MMOL/L 3.5-5.1 N K) CHLORIDE (test code = 108 MMOL/L 98-107 H CL) CARBON DIOXIDE (test 21 MMOL/L 22-30 L code = CO2) ANION GAP (test code = 13 MMOL/L 14-24 L GAP) GLUCOSE (test code = 194 MG/DL 74-106 H GLU) BLOOD UREA NITROGEN 42 MG/DL 9-20 H (test code = BUN) GLOMERULAR FILTRATION 30 Report ing units: RATE (test code = GFR) ml/mi n/1.73 m2 (Modified MDRD Formula)Referen ce Range: > or = 6 0 ml/min/1.73 m2 CREATININE (test code 2.60 MG/DL 0.66-1.25 H = CREAT) CALCIUM (test code = 8.6 MG/DL 8.4-10.2 N CA) PROTHROMBIN [id number] 15:05:00 Test Item Value Reference Range Interpretation Comments PROTHROMBIN TIME 14.4 SECONDS 9.5-12.7 H PATIENT (test code = PTP) INTERNATIONAL NORMAL 1.3 0.86-1.14 H The INR is to be RATIO (test code = used only for INR) monitoring oral anticoagulantth erap y. INDICATION I NR VALUE ---- ---- ---- -------1. Prophylaxis, de ep venous thrombos is, including high risk surgery. 2.0 - 3.0 2. Prophylaxis, deep venous thrombosis, hip surgery, treatm ent for deep venous thrombosis or pulmonary prevention of systemic emboli sm in patients wit h valvular heart disease, atrial fibrillation, tissue heart va lve, or acute myocar dial infarction. 2. 0 - 3.0 3. Primer Charger al prosthesis hear t valves, recurre nt systemic emboli sm. 3.0 - 4.5 PTT [id number] 15:05:00 Test Item Value Reference Range Interpretation Comments PTT ACTIVATED (test code = APTT) 37.6 SECONDS 25.1-36.5 H CBC W/AUTO [id number] 14:57:00 Test Item Value Reference Range Interpretation Comments WHITE BLOOD CELL (test code = 5.0 K/MM3 3.8-9.8 N WBC) RED BLOOD CELL (test code = 2.60 M/MM3 3.95-5.67 L RBC) HEMOGLOBIN (test code = HGB) 7.9 G/DL 12.4-16.7 L HEMATOCRIT (test code = HCT) 25.7 % 35.9-49.5 L MEAN CELL VOLUME (test code = 99 fL 81.7-96.1 H MCV) MEAN CELL HGB (test code = MCH) 30.4 pg 27.6-33.2 N MEAN CELL HGB CONCETRATION 30.7 % 32.9-35.5 L (test code = MCHC) RED CELL DISTRIBUTION WIDTH 15.7 % 12.1-15.2 H (test code = RDW) PLATELET COUNT (test code = 115 K/MM3 129-368 L PLT) MEAN PLATELET VOLUME (test code 9.8 fl 7.4-10.4 N = MPV) NEUTROPHIL % (test code = NT%) 75.8 % 43-75 H IMMATURE GRANULOCYTE % (test 0.8 % 0.0-2.0 N code = IG%) LYMPHOCYTE % (test code = LY%) 10.5 % 14-44 L MONOCYTE % (test code = MO%) 6.0 % 4-13 N EOSINOPHIL % (test code = EO%) 6.5 % 0-6 H BASOPHIL % (test code = BA%) 0.4 % 0-2 N NUCLEATED RBC % (test code = 0.0 % 0-1.0 N NRBC%) NEUTROPHIL # (test code = NT#) 3.82 K/mm3 2.0-7.6 N IMMATURE GRANULOCYTE # (test 0.04 x10 3/uL 0-0.03 H code = IG#) LYMPHOCYTE # (test code = LY#) 0.53 K/mm3 1.0-3.8 L MONOCYTE # (test code = MO#) 0.30 K/mm3 0.1-0.8 N EOSINOPHIL # (test code = EO#) 0.33 K/mm3 0.0-0.2 H BASOPHIL # (test code = BA#) 0.02 K/mm3 0.0-0.2 N NUCLEATED RBC # (test code = 0.00 K/mm3 0.0-0.1 N NRBC#) - XR CHEST [id number] 14:56:00 [facility] 1950 Sex: M Patient Name: MI MCKENNA Unit No: [id number] EXAMS: CPT CODE: [id number] XR CHEST 1V 13504 B2 EXAM: - XR CHEST 1V HISTORY: Vascular Bypass Preop COMPARISON: 05/05/2021 FINDINGS: The lungs are clear. No pleural effusion or pneumothorax. The cardiac silhouette is within normal limits. No acute osseous abnormalities. IMPRESSION: No acute cardiopulmonary disease. at 1456 Reported and signed by: Pranay Doe MD CC: Technologist: Ada Preciado, RT (R) Transcrpt Date/Tm/Trnsp: 05/07/2021 (1456) [id number] Orig Print D/T: S: 05/07/2021 (3061) [facility] NAME: MI MCKENNA [id number] [address] PHYS: [place] [address] : 1950GE: 70 SEX: M LOC: [phone].[id number] A PHONE #: [phone] EXAM DATE: 05/07/2021 STATUS: ADM IN FAX #: [phone] RADIOLOGY NO: PAGE 1 Signed ReportGLUCOSE BEDSIDE [id number] 11:08:00 Test Item Value Reference Range Interpretation Comments GLUCOSE BEDSIDE TESTING 157 MG/DL 60-99 H Noti fied Nurse~ (test code = GLUBED) GLUCOSE BEDSIDE [id number] 06:55:00 Test Item Value Reference Range Interpretation Comments GLUCOSE BEDSIDE TESTING 122 MG/DL 60-99 H Noti fied Nurse~ (test code = GLUBED) BASIC METABOLIC [id number] 06:07:00 Test Item Value Reference Range Interpretation Comments SODIUM (test code = 137 MMOL/L 137-145 N NA) POTASSIUM (test code = 5.0 MMOL/L 3.5-5.1 N K) CHLORIDE (test code = 108 MMOL/L 98-107 H CL) CARBON DIOXIDE (test 23 MMOL/L 22-30 N code = CO2) GLUCOSE (test code = 119 MG/DL 74-106 H GLU) BLOOD UREA NITROGEN 42 MG/DL 9-20 H (test code = BUN) GLOMERULAR FILTRATION 33 Report ing units: RATE (test code = GFR) ml/mi n/1.73 m2 (Modified MDRD Formula)Referen ce Range: > or = 6 0 ml/min/1.73 m2 CREATININE (test code 2.40 MG/DL 0.66-1.25 H = CREAT) CALCIUM (test code = 8.4 MG/DL 8.4-10.2 N CA) CBC W/AUTO [id number] 06:05:00 Test Item Value Reference Range Interpretation Comments WHITE BLOOD CELL (test code = 4.6 K/MM3 3.8-9.8 N WBC) RED BLOOD CELL (test code = 2.49 M/MM3 3.95-5.67 L RBC) HEMOGLOBIN (test code = HGB) 7.6 G/DL 12.4-16.7 L HEMATOCRIT (test code = HCT) 26.3 % 35.9-49.5 L MEAN CELL VOLUME (test code = 106 fL 81.7-96.1 H MCV) MEAN CELL HGB (test code = MCH) 30.5 pg 27.6-33.2 N MEAN CELL HGB CONCETRATION 28.9 % 32.9-35.5 L (test code = MCHC) RED CELL DISTRIBUTION WIDTH 15.6 % 12.1-15.2 H (test code = RDW) PLATELET COUNT (test code = 108 K/MM3 129-368 L PLT) MEAN PLATELET VOLUME (test code 10.0 fl 7.4-10.4 N = MPV) NEUTROPHIL % (test code = NT%) 75.7 % 43-75 H IMMATURE GRANULOCYTE % (test 0.2 % 0.0-2.0 N code = IG%) LYMPHOCYTE % (test code = LY%) 12.9 % 14-44 L MONOCYTE % (test code = MO%) 6.9 % 4-13 N EOSINOPHIL % (test code = EO%) 4.1 % 0-6 N BASOPHIL % (test code = BA%) 0.2 % 0-2 N NUCLEATED RBC % (test code = 0.0 % 0-1.0 N NRBC%) NEUTROPHIL # (test code = NT#) 3.51 K/mm3 2.0-7.6 N IMMATURE GRANULOCYTE # (test 0.01 x10 3/uL 0-0.03 N code = IG#) LYMPHOCYTE # (test code = LY#) 0.60 K/mm3 1.0-3.8 L MONOCYTE # (test code = MO#) 0.32 K/mm3 0.1-0.8 N EOSINOPHIL # (test code = EO#) 0.19 K/mm3 0.0-0.2 N BASOPHIL # (test code = BA#) 0.01 K/mm3 0.0-0.2 N NUCLEATED RBC # (test code = 0.00 K/mm3 0.0-0.1 N NRBC#) DIFFERENTIAL [id number] 06:05:00 Test Item Value Reference Range Interpretation Comments RBC MORPHOLOGY REQUIRED (test code = RBCM) PLATELET ESTIMATE (test code = PLTEST) ADEQUATE PLATELET MORPHOLOGY (test code = NORMAL PLTMORPH) CBC W/AUTO [id number] 06:05:00 Test Item Value Reference Range Interpretation Comments WHITE BLOOD CELL (test code = 4.6 K/MM3 3.8-9.8 N WBC) RED BLOOD CELL (test code = 2.49 M/MM3 3.95-5.67 L RBC) HEMOGLOBIN (test code = HGB) 7.6 G/DL 12.4-16.7 L HEMATOCRIT (test code = HCT) 26.3 % 35.9-49.5 L MEAN CELL VOLUME (test code = 106 fL 81.7-96.1 H MCV) MEAN CELL HGB (test code = MCH) 30.5 pg 27.6-33.2 N MEAN CELL HGB CONCETRATION 28.9 % 32.9-35.5 L (test code = MCHC) RED CELL DISTRIBUTION WIDTH 15.6 % 12.1-15.2 H (test code = RDW) PLATELET COUNT (test code = 108 K/MM3 129-368 L PLT) MEAN PLATELET VOLUME (test code 10.0 fl 7.4-10.4 N = MPV) NEUTROPHIL % (test code = NT%) 75.7 % 43-75 H IMMATURE GRANULOCYTE % (test 0.2 % 0.0-2.0 N code = IG%) LYMPHOCYTE % (test code = LY%) 12.9 % 14-44 L MONOCYTE % (test code = MO%) 6.9 % 4-13 N EOSINOPHIL % (test code = EO%) 4.1 % 0-6 N BASOPHIL % (test code = BA%) 0.2 % 0-2 N NUCLEATED RBC % (test code = 0.0 % 0-1.0 N NRBC%) NEUTROPHIL # (test code = NT#) 3.51 K/mm3 2.0-7.6 N IMMATURE GRANULOCYTE # (test 0.01 x10 3/uL 0-0.03 N code = IG#) LYMPHOCYTE # (test code = LY#) 0.60 K/mm3 1.0-3.8 L MONOCYTE # (test code = MO#) 0.32 K/mm3 0.1-0.8 N EOSINOPHIL # (test code = EO#) 0.19 K/mm3 0.0-0.2 N BASOPHIL # (test code = BA#) 0.01 K/mm3 0.0-0.2 N NUCLEATED RBC # (test code = 0.00 K/mm3 0.0-0.1 N NRBC#) DIFFERENTIAL [id number] 06:05:00 Test Item Value Reference Range Interpretation Comments RBC MORPHOLOGY REQUIRED (test code = RBCM) PLATELET ESTIMATE (test code = PLTEST) ADEQUATE PLATELET MORPHOLOGY (test code = NORMAL PLTMORPH) GLUCOSE BEDSIDE [id number] 20:20:00 Test Item Value Reference Range Interpretation Comments GLUCOSE BEDSIDE TESTING (test code 149 MG/DL 60-99 H = GLUBED) GLUCOSE BEDSIDE [id number] 16:01:00 Test Item Value Reference Range Interpretation Comments GLUCOSE BEDSIDE TESTING 152 MG/DL 60-99 H Noti fied Nurse~ (test code = GLUBED) GLUCOSE BEDSIDE [id number] 11:23:00 Test Item Value Reference Range Interpretation Comments GLUCOSE BEDSIDE TESTING 176 MG/DL 60-99 H Noti fied Nurse~ (test code = GLUBED) GLUCOSE BEDSIDE [id number] 06:23:00 Test Item Value Reference Range Interpretation Comments GLUCOSE BEDSIDE TESTING 119 MG/DL 60-99 H Noti fied Nurse~ (test code = GLUBED) BASIC METABOLIC [id number] 05:51:00 Test Item Value Reference Range Interpretation Comments SODIUM (test code = 138 MMOL/L 137-145 N NA) POTASSIUM (test code = 5.1 MMOL/L 3.5-5.1 N K) CHLORIDE (test code = 108 MMOL/L 98-107 H CL) CARBON DIOXIDE (test 24 MMOL/L 22-30 N code = CO2) ANION GAP (test code = 11 MMOL/L 14-24 L GAP) GLUCOSE (test code = 130 MG/DL 74-106 H GLU) BLOOD UREA NITROGEN 43 MG/DL 9-20 H (test code = BUN) GLOMERULAR FILTRATION 33 Report ing units: RATE (test code = GFR) ml/mi n/1.73 m2 (Modified MDRD Formula)Referen ce Range: > or = 6 0 ml/min/1.73 m2 CREATININE (test code 2.40 MG/DL 0.66-1.25 H = CREAT) CALCIUM (test code = 8.5 MG/DL 8.4-10.2 N CA) [id number] 05:51:00 Test Item Value Reference Range Interpretation Comments PHOSPHOROUS (test code = PHOS) 3.6 MG/DL 2.5-4.5 N [id number] 05:51:00 Test Item Value Reference Range Interpretation Comments MAGNESIUM (test code = MAG) 2.2 MG/DL 1.6-2.3 N CBC W/AUTO [id number] 05:34:00 Test Item Value Reference Range Interpretation Comments WHITE BLOOD CELL (test code = 4.4 K/MM3 3.8-9.8 N WBC) RED BLOOD CELL (test code = 2.63 M/MM3 3.95-5.67 L RBC) HEMOGLOBIN (test code = HGB) 8.1 G/DL 12.4-16.7 L HEMATOCRIT (test code = HCT) 25.4 % 35.9-49.5 L MEAN CELL VOLUME (test code = 97 fL 81.7-96.1 H MCV) MEAN CELL HGB (test code = MCH) 30.8 pg 27.6-33.2 N MEAN CELL HGB CONCETRATION 31.9 % 32.9-35.5 L (test code = MCHC) RED CELL DISTRIBUTION WIDTH 15.6 % 12.1-15.2 H (test code = RDW) PLATELET COUNT (test code = 97 K/MM3 129-368 L PLT) MEAN PLATELET VOLUME (test code 9.9 fl 7.4-10.4 N = MPV) NEUTROPHIL % (test code = NT%) 69.0 % 43-75 N IMMATURE GRANULOCYTE % (test 0.5 % 0.0-2.0 N code = IG%) LYMPHOCYTE % (test code = LY%) 14.8 % 14-44 N MONOCYTE % (test code = MO%) 8.2 % 4-13 N EOSINOPHIL % (test code = EO%) 6.6 % 0-6 H BASOPHIL % (test code = BA%) 0.9 % 0-2 N NUCLEATED RBC % (test code = 0.0 % 0-1.0 N NRBC%) NEUTROPHIL # (test code = NT#) 3.04 K/mm3 2.0-7.6 N IMMATURE GRANULOCYTE # (test 0.02 x10 3/uL 0-0.03 N code = IG#) LYMPHOCYTE # (test code = LY#) 0.65 K/mm3 1.0-3.8 L MONOCYTE # (test code = MO#) 0.36 K/mm3 0.1-0.8 N EOSINOPHIL # (test code = EO#) 0.29 K/mm3 0.0-0.2 H BASOPHIL # (test code = BA#) 0.04 K/mm3 0.0-0.2 N NUCLEATED RBC # (test code = 0.00 K/mm3 0.0-0.1 N NRBC#) GLUCOSE BEDSIDE [id number] 21:37:00 Test Item Value Reference Range Interpretation Comments GLUCOSE BEDSIDE TESTING (test code 148 MG/DL 60-99 H = GLUBED) GLUCOSE BEDSIDE [id number] 16:01:00 Test Item Value Reference Range Interpretation Comments GLUCOSE BEDSIDE TESTING (test code 144 MG/DL 60-99 H = GLUBED) - US RETROPERITONEAL [id number] 15:45:00 [facility] 1950 Sex: M Patient Name: MI MCKENNA Unit No: [id number] EXAMS: CPT CODE: [id number] US RETROPERITONEAL COM [id number] EXAMINATION: Renal ultrasound INDICATION: Chronic kidney disease COMPARISON: None LOCATION: S17 TECHNIQUE: Grayscale and Doppler sonographic images were obtained of the kidneys. FINDINGS: Right kidney measures 10.3 x 6.3 x 6.2 cm. Normal cortical echogenicity. Normal cortical thickness. No hydronephrosis.Left kidney measures 10.9 x 6.3 x 6.0 cm. Normal cortical echogenicity. Normal cortical thickness. No hydronephrosis. Images of the bladder were not obtained due to indwelling Solano catheter. IMPRESSION: Unremarkable renal ultrasound. at 1545 Reported and signed by: Jerrell Cummins MD CC: Jason Garduno Technologist: Gauri Yoo Transcrpt Date/Tm/Trnsp: 05/05/2021 (4386) [email or web address] Orig Print D/T: S: 05/05/2021 (6237) [facility] NAME: MI MCKENNA [id number] [address] PHYS: [place] [address] : 1950 AGE: 70 SEX: M LOC: Z.636 A PHONE #: [phone] EXAM DATE: 05/05/2021 STATUS: ADM IN FAX #: [phone] RADIOLOGY NO: PAGE 1 Signed Report PARATHYROID HORMONE [id number] 13:37:00 Test Item Value Reference Range Interpretation Comments PARATHYROID HORMONE INTACT (test 83.7 pg/mL 7.5-53.5 H code = PARAI) - XR CHEST [id number] 13:15:00 [facility] 1950 Sex: M Patient Name: MI MCKENNA Unit No: [id number] EXAMS: CPT CODE: [id number] XR CHEST 1V [id number] EXAMINATION: - XR CHEST 1V. LOCATION: B2. HISTORY: ckd. COMPARISON: None. TECHNIQUE: Single AP view of the chest was obtained. FINDINGS: The heart is normal in size. Calcifications are seen at the aortic arch. The lungs are clear. No acute osseous abnormality is identified. IMPRESSION: No acute cardiopulmonary abnormality. at 1315 Reported and signed by:Amaury Marcos MD CC: Jason Garduno Technologist: Symone Johnson RT(R) Transcrpt Date/Tm/Trnsp: 05/05/2021 (1315) [email or web address] Orig Print D/T: S: 05/05/2021 (1318) [facility] NAME: MI MCKENNA [id number] [address] PHYS: [place] [address] : 1950 AGE: 70 SEX: M LOC: Z.636 A PHONE #: [phone] EXAM DATE: 05/05/2021 STATUS: ADM IN FAX #: [phone] NO: PAGE 1 Signed ReportGLUCOSE BEDSIDE [id number] 11:08:00 Test Item Value Reference Range Interpretation Comments GLUCOSE BEDSIDE TESTING (test code 188 MG/DL 60-99 H = GLUBED) GLUCOSE BEDSIDE [id number] 06:02:00 Test Item Value Reference Range Interpretation Comments GLUCOSE BEDSIDE TESTING (test code 133 MG/DL 60-99 H = GLUBED) GLUCOSE BEDSIDE [id number] 18:36:00 Test Item Value Reference Range Interpretation Comments GLUCOSE BEDSIDE TESTING (test code 178 MG/DL 60-99 H = GLUBED) GLUCOSE BEDSIDE [id number] 15:31:00 Test Item Value Reference Range Interpretation Comments GLUCOSE BEDSIDE TESTING (test code 137 MG/DL 60-99 H = GLUBED) BASIC METABOLIC [id number] 06:20:00 Test Item Value Reference Range Interpretation Comments SODIUM (test code = 136 MMOL/L 137-145 L NA) POTASSIUM (test code = 5.0 MMOL/L 3.5-5.1 N K) CHLORIDE (test code = 106 MMOL/L 98-107 N CL) CARBON DIOXIDE (test 21 MMOL/L 22-30 L code = CO2) ANION GAP (test code = 14 MMOL/L 14-24 N GAP) GLUCOSE (test code = 149 MG/DL 74-106 H GLU) BLOOD UREA NITROGEN 55 MG/DL 9-20 H (test code = BUN) GLOMERULAR FILTRATION 31 Report ing units: RATE (test code = GFR) ml/mi n/1.73 m2 (Modified MDRD Formula)Referen ce Range: > or = 6 0 ml/min/1.73 m2 CREATININE (test code 2.50 MG/DL 0.66-1.25 H = CREAT) CALCIUM (test code = 8.5 MG/DL 8.4-10.2 N CA) GLUCOSE BEDSIDE [id number] 06:18:00 Test Item Value Reference Range Interpretation Comments GLUCOSE BEDSIDE TESTING (test code 136 MG/DL 60-99 H = GLUBED) PROTHROMBIN [id number] 06:17:00 Test Item Value Reference Range Interpretation Comments PROTHROMBIN TIME 17.0 SECONDS 9.5-12.7 H PATIENT (test code = PTP) INTERNATIONAL NORMAL 1.5 0.86-1.14 H The INR is to be RATIO (test code = used only for INR) monitoring oral anticoagulantth erap y. INDICATION I NR VALUE ---- ---- ---- -------1. Prophylaxis, de ep venous thrombos is, including high risk surgery. 2.0 - 3.0 2. Prophylaxis, deep venous thrombosis, hip surgery, treatm ent for deep venous thrombosis or pulmonary prevention of systemic emboli sm in patients wit h valvular heart disease, atrial fibrillation, tissue heart va lve, or acute myocar dial infarction. 2.0 - 3.0 3. Primer Charger al prosthesis hear t valves, recurre nt systemic emboli sm. 3.0 - 4.5 CBC W/AUTO [id number] 06:14:00 Test Item Value Reference Range Interpretation Comments WHITE BLOOD CELL (test code = 5.0 K/MM3 3.8-9.8 N WBC) RED BLOOD CELL (test code = 2.49 M/MM3 3.95-5.67 L RBC) HEMOGLOBIN (test code = HGB) 7.5 G/DL 12.4-16.7 L HEMATOCRIT (test code = HCT) 23.7 % 35.9-49.5 L MEAN CELL VOLUME (test code = 95 fL 81.7-96.1 N MCV) MEAN CELL HGB (test code = MCH) 30.1 pg 27.6-33.2 N MEAN CELL HGB CONCETRATION 31.6 % 32.9-35.5 L (test code = MCHC) RED CELL DISTRIBUTION WIDTH 15.6 % 12.1-15.2 H (test code = RDW) PLATELET COUNT (test code = 105 K/MM3 129-368 L PLT) MEAN PLATELET VOLUME (test code 10.1 fl 7.4-10.4 N = MPV) NEUTROPHIL % (test code = NT%) 72.4 % 43-75 N IMMATURE GRANULOCYTE % (test 0.4 % 0.0-2.0 N code = IG%) LYMPHOCYTE % (test code = LY%) 10.2 % 14-44 L MONOCYTE % (test code = MO%) 9.2 % 4-13 N EOSINOPHIL % (test code = EO%) 7.2 % 0-6 H BASOPHIL % (test code = BA%) 0.6 % 0-2 N NUCLEATED RBC % (test code = 0.0 % 0-1.0 N NRBC%) NEUTROPHIL # (test code = NT#) 3.62 K/mm3 2.0-7.6 N IMMATURE GRANULOCYTE # (test 0.02 x10 3/uL 0-0.03 N code = IG#) LYMPHOCYTE # (test code = LY#) 0.51 K/mm3 1.0-3.8 L MONOCYTE # (test code = MO#) 0.46 K/mm3 0.1-0.8 N EOSINOPHIL # (test code = EO#) 0.36 K/mm3 0.0-0.2 H BASOPHIL # (test code = BA#) 0.03 K/mm3 0.0-0.2 N NUCLEATED RBC # (test code = 0.00 K/mm3 0.0-0.1 N NRBC#) GLUCOSE BEDSIDE [id number] 01:21:00 Test Item Value Reference Range Interpretation Comments GLUCOSE BEDSIDE TESTING (test code 180 MG/DL 60-99 H = GLUBED) GLUCOSE BEDSIDE [id number] 01:21:00 Test Item Value Reference Range Interpretation Comments GLUCOSE BEDSIDE TESTING (test code 188 MG/DL 60-99 H = GLUBED) COVID 19 Asymptomatic IH [id number] 23:57:00 Test Item Value Reference Range Interpretation Comments COVID 19 NEGATIVE Negative "Negative resul ts from Asymptomatic IH AG patients with symptom (test code = onset beyondfiv e days, COVNONPUIAG) should be treat ed as presumptive, andconfirmation with a molecular assay , if necessary forpa tient management may be performed. Nega tive results do notr ule out COVID-19 and sh ould not be used as the sole basisfor treatm ent or patient managem ent decisions, includinginfect ion control decisio ns. Negative result s should beconsidered in the context of a pa tients recent exposure s,history, and the presenc e of clinical signs and symptomsconsist ent with COVID-19.This t est detects both vi able andnon-viable S ARS-CoV and SARS CoV-2. Test performance dep endson the amount of virus (antigen) in the sample." Spec Comments: PRE-OPGLUCOSE BEDSIDE [id number] 16:47:00 Test Item Value Reference Range Interpretation Comments GLUCOSE BEDSIDE TESTING (test code 138 MG/DL 60-99 H = GLUBED) GLUCOSE BEDSIDE [id number] 12:31:00 Test Item Value Reference Range Interpretation Comments GLUCOSE BEDSIDE TESTING (test code 143 MG/DL 60-99 H = GLUBED) PROTHROMBIN [id number] 11:49:00 Test Item Value Reference Range Interpretation Comments PROTHROMBIN TIME 18.2 SECONDS 9.5-12.7 H PATIENT (test code = PTP) INTERNATIONAL NORMAL 1.6 0.86-1.14 H The INR is to be RATIO (test code = used only for INR) monitoring oral anticoagulantth erap y. INDICATION INR VALUE ---- ---- ---- -------1. Prophylaxis, de ep venous thrombos is, including high risk surgery. 2.0 - 3.0 2. Prophylaxis, deep venous thrombosis, hip surgery, treatm ent for deep venous thrombosis or pulmonary prevention of systemic emboli sm in patients wit h valvular heart disease, atrial fibrillation, tissue heart va lve, or acute myocar dial infarction. 2.0 - 3.0 3. Primer Charger al prosthesis hear t valves, recurre nt systemic emboli sm. 3.0 - 4.5 CBC W/AUTO [id number] 11:42:00 Test Item Value Reference Range Interpretation Comments WHITE BLOOD CELL (test code = 5.6 K/MM3 3.8-9.8 N WBC) RED BLOOD CELL (test code = 2.47 M/MM3 3.95-5.67 L RBC) HEMOGLOBIN (test code = HGB) 7.6 G/DL 12.4-16.7 L HEMATOCRIT (test code = HCT) 23.3 % 35.9-49.5 L MEAN CELL VOLUME (test code = 94 fL 81.7-96.1 N MCV) MEAN CELL HGB (test code = MCH) 30.8 pg 27.6-33.2 N MEAN CELL HGB CONCETRATION 32.6 % 32.9-35.5 L (test code = MCHC) RED CELL DISTRIBUTION WIDTH 15.9 % 12.1-15.2 H (test code = RDW) PLATELET COUNT (test code = 108 K/MM3 129-368 L PLT) MEAN PLATELET VOLUME (test code 9.6 fl 7.4-10.4 N = MPV) NEUTROPHIL % (test code = NT%) 73.7 % 43-75 N IMMATURE GRANULOCYTE % (test 0.5 % 0.0-2.0 N code = IG%) LYMPHOCYTE % (test code = LY%) 10.2 % 14-44 L MONOCYTE % (test code = MO%) 7.2 % 4-13 N EOSINOPHIL % (test code = EO%) 7.5 % 0-6 H BASOPHIL % (test code = BA%) 0.9 % 0-2 N NUCLEATED RBC % (test code = 0.0 % 0-1.0 N NRBC%) NEUTROPHIL # (test code = NT#) 4.12 K/mm3 2.0-7.6 N IMMATURE GRANULOCYTE # (test 0.03 x10 3/uL 0-0.03 N code = IG#) LYMPHOCYTE # (test code = LY#) 0.57 K/mm3 1.0-3.8 L MONOCYTE # (test code = MO#) 0.40 K/mm3 0.1-0.8 N EOSINOPHIL # (test code = EO#) 0.42 K/mm3 0.0-0.2 H BASOPHIL # (test code = BA#) 0.05 K/mm3 0.0-0.2 N NUCLEATED RBC # (test code = 0.00 K/mm3 0.0-0.1 N NRBC#) NT PRO-BRAIN NATRIURETIC [id number] 07:22:00 Test Item Value Reference Range Interpretation Comments NT PRO-BRAIN NATRIURETIC PEPTI 2340.0 pg/mL 0-125 H (test code = PROBNP) BASIC METABOLIC [id number] 06:54:00 Test Item Value Reference Range Interpretation Comments SODIUM (test code = 136 MMOL/L 137-145 L NA) POTASSIUM (test code = 5.3 MMOL/L 3.5-5.1 H K) CHLORIDE (test code = 107 MMOL/L 98-107 N CL) CARBON DIOXIDE (test 19 MMOL/L 22-30 L code = CO2) GLUCOSE (test code = 107 MG/DL 74-106 H GLU) BLOOD UREA NITROGEN 59 MG/DL 9-20 H (test code = BUN) GLOMERULAR FILTRATION 31 Report ing units: RATE (test code = GFR) ml/mi n/1.73 m2 (Modified MDRD Formula)Referen ce Range: > or = 6 0 ml/min/1.73 m2 CREATININE (test code 2.50 MG/DL 0.66-1.25 H = CREAT) CALCIUM (test code = 8.3 MG/DL 8.4-10.2 L CA) CBC W/AUTO [id number] 06:46:00 Test Item Value Reference Range Interpretation Comments WHITE BLOOD CELL (test code = 5.0 K/MM3 3.8-9.8 N WBC) RED BLOOD CELL (test code = 2.50 M/MM3 3.95-5.67 L RBC) HEMOGLOBIN (test code = HGB) 7.4 G/DL 12.4-16.7 L HEMATOCRIT (test code = HCT) 24.4 % 35.9-49.5 L MEAN CELL VOLUME (test code = 98 fL 81.7-96.1 H MCV) MEAN CELL HGB (test code = MCH) 29.6 pg 27.6-33.2 N MEAN CELL HGB CONCETRATION 30.3 % 32.9-35.5 L (test code = MCHC) RED CELL DISTRIBUTION WIDTH 15.9 % 12.1-15.2 H (test code = RDW) PLATELET COUNT (test code = 95 K/MM3 129-368 L PLT) MEAN PLATELET VOLUME (test code 10.8 fl 7.4-10.4 H = MPV) NEUTROPHIL % (test code = NT%) 69.7 % 43-75 N IMMATURE GRANULOCYTE % (test 0.8 % 0.0-2.0 N code = IG%) LYMPHOCYTE % (test code = LY%) 12.7 % 14-44 L MONOCYTE % (test code = MO%) 9.3 % 4-13 N EOSINOPHIL % (test code = EO%) 6.9 % 0-6 H BASOPHIL % (test code = BA%) 0.6 % 0-2 N NUCLEATED RBC % (test code = 0.0 % 0-1.0 N NRBC%) NEUTROPHIL # (test code = NT#) 3.46 K/mm3 2.0-7.6 N IMMATURE GRANULOCYTE # (test 0.04 x10 3/uL 0-0.03 H code = IG#) LYMPHOCYTE # (test code = LY#) 0.63 K/mm3 1.0-3.8 L MONOCYTE # (test code = MO#) 0.46 K/mm3 0.1-0.8 N EOSINOPHIL # (test code = EO#) 0.34 K/mm3 0.0-0.2 H BASOPHIL # (test code = BA#) 0.03 K/mm3 0.0-0.2 N NUCLEATED RBC # (test code = 0.00 K/mm3 0.0-0.1 N NRBC#) GLUCOSE BEDSIDE [id number] 06:01:00 Test Item Value Reference Range Interpretation Comments GLUCOSE BEDSIDE TESTING (test code 117 MG/DL 60-99 H = GLUBED) FOLIC ACID BY [id number] 23:46:00 Test Item Value Reference Range Interpretation Comments FOLIC ACID BY BERNARD 5.6 ng/mL REFERENCE VALUES: (test code = FOLR) NORMAL: 2 .76 - >20 ng/ML DEFICIENT: 1.04 - 2.79 ng/ML NT PRO-BRAIN NATRIURETIC [id number] 21:51:00 Test Item Value Reference Range Interpretation Comments NT PRO-BRAIN NATRIURETIC PEPTI 2700.0 pg/mL 0-125 H (test code = PROBNP) UNABLE TO DRAW BLOOD, REASON: REC BLOOD NOTIFIED PATIENT CARE STAFF: WADE 05/02/21 AT 1705 BY Estella Malcolm AnGLUCOSE BEDSIDE [id number] 21:08:00 Test Item Value Reference Range Interpretation Comments GLUCOSE BEDSIDE TESTING (test code 199 MG/DL 60-99 H = GLUBED) GLUCOSE BEDSIDE [id number] 16:46:00 Test Item Value Reference Range Interpretation Comments GLUCOSE BEDSIDE TESTING 135 MG/DL 60-99 H Noti fied Nurse~ (test code = GLUBED) GLUCOSE BEDSIDE [id number] 12:55:00 Test Item Value Reference Range Interpretation Comments GLUCOSE BEDSIDE TESTING 168 MG/DL 60-99 H Noti fied Nurse~ (test code = GLUBED) CBC W/AUTO [id number] 08:43:00 Test Item Value Reference Range Interpretation Comments WHITE BLOOD CELL (test 4.7 K/MM3 3.8-9.8 N code = WBC) RED BLOOD CELL (test 1.98 M/MM3 3.95-5.67 LL CALLED TO GERALD code = RBC) L & READBACK ON 05/02/21 AT 061 3 BY Bonnie,Chest er HEMOGLOBIN (test code 6.0 G/DL 12.4-16.7 LL CALLED TO STERLINGYA = HGB) L & READBACK ON 05/02/21 AT 061 3 BY Bonnie,Chest er HEMATOCRIT (test code 19.8 % 35.9-49.5 LL CALLED TO STERLINGObatech = HCT) L & READBACK ON 05/02/21 AT 061 3 BY Bonnie,Chest er MEAN CELL VOLUME (test 100 fL 81.7-96.1 H code = MCV) MEAN CELL HGB (test 30.3 pg 27.6-33.2 N code = MCH) MEAN CELL HGB 30.3 % 32.9-35.5 L CONCETRATION (test code = MCHC) RED CELL DISTRIBUTION 14.4 % 12.1-15.2 N WIDTH (test code = RDW) PLATELET COUNT (test 84 K/MM3 129-368 L code = PLT) MEAN PLATELET VOLUME 10.4 fl 7.4-10.4 N (test code = MPV) NEUTROPHIL % (test 70.2 % 43-75 N code = NT%) IMMATURE GRANULOCYTE % 0.4 % 0.0-2.0 N (test code = IG%) LYMPHOCYTE % (test 12.8 % 14-44 L code = LY%) MONOCYTE % (test code 9.6 % 4-13 N = MO%) EOSINOPHIL % (test 6.6 % 0-6 H code = EO%) BASOPHIL % (test code 0.4 % 0-2 N = BA%) NUCLEATED RBC % (test 0.0 % 0-1.0 N code = NRBC%) NEUTROPHIL # (test 3.27 K/mm3 2.0-7.6 N code = NT#) IMMATURE GRANULOCYTE # 0.02 x10 3/uL 0-0.03 N (test code = IG#) LYMPHOCYTE # (test 0.60 K/mm3 1.0-3.8 L code = LY#) MONOCYTE # (test code 0.45 K/mm3 0.1-0.8 N = MO#) EOSINOPHIL # (test 0.31 K/mm3 0.0-0.2 H code = EO#) BASOPHIL # (test code 0.02 K/mm3 0.0-0.2 N = BA#) NUCLEATED RBC # (test 0.00 K/mm3 0.0-0.1 N code = NRBC#) DIFFERENTIAL [id number] 08:43:00 Test Item Value Reference Range Interpretation Comments RBC MORPHOLOGY REQUIRED (test code NORMAL = RBCM) PLATELET ESTIMATE (test code = DECREASED ADEQUATE PLTEST) PLATELET MORPHOLOGY (test code = NORMAL NORMAL PLTMORPH) GLUCOSE BEDSIDE [id number] 08:35:00 Test Item Value Reference Range Interpretation Comments GLUCOSE BEDSIDE TESTING 130 MG/DL 60-99 H Noti fied Nurse~ (test code = GLUBED) BASIC METABOLIC [id number] 06:24:00 Test Item Value Reference Range Interpretation Comments SODIUM (test code = 136 MMOL/L 137-145 L NA) POTASSIUM (test code = 5.6 MMOL/L 3.5-5.1 H K) CHLORIDE (test code = 107 MMOL/L 98-107 N CL) CARBON DIOXIDE (test 23 MMOL/L 22-30 N code = CO2) GLUCOSE (test code = 127 MG/DL 74-106 H GLU) BLOOD UREA NITROGEN 57 MG/DL 9-20 H (test code = BUN) GLOMERULAR FILTRATION 33 Report ing units: RATE (test code = GFR) ml/mi n/1.73 m2 (Modified MDRD Formula)Referen ce Range: > or = 6 0 ml/min/1.73 m2 CREATININE (test code 2.40 MG/DL 0.66-1.25 H = CREAT) CALCIUM (test code = 8.2 MG/DL 8.4-10.2 L CA) CBC W/AUTO [id number] 06:15:00 Test Item Value Reference Range Interpretation Comments WHITE BLOOD CELL (test 4.7 K/MM3 3.8-9.8 N code = WBC) RED BLOOD CELL (test 1.98 M/MM3 3.95-5.67 LL CALLED TO [place] code = RBC) L & READBACK ON 05/02/21 AT 061 3 BY Sharifao,Chest er HEMOGLOBIN (test code 6.0 G/DL 12.4-16.7 LL CALLED TO [employer] = HGB) L & READBACK ON 05/02/21 AT 061 3 BY Sharifao,Chest er HEMATOCRIT (test code 19.8 % 35.9-49.5 LL CALLED TO RACHAEYA = HCT) L & READBACK ON 05/02/21 AT 061 3 BY Sharifao,Chest er MEAN CELL VOLUME (test 100 fL 81.7-96.1 H code = MCV) MEAN CELL HGB (test 30.3 pg 27.6-33.2 N code = MCH) MEAN CELL HGB 30.3 % 32.9-35.5 L CONCETRATION (test code = MCHC) RED CELL DISTRIBUTION 14.4 % 12.1-15.2 N WIDTH (test code = RDW) PLATELET COUNT (test 84 K/MM3 129-368 L code = PLT) MEAN PLATELET VOLUME 10.4 fl 7.4-10.4 N (test code = MPV) NEUTROPHIL % (test 70.2 % 43-75 N code = NT%) IMMATURE GRANULOCYTE % 0.4 % 0.0-2.0 N (test code = IG%) LYMPHOCYTE % (test 12.8 % 14-44 L code = LY%) MONOCYTE % (test code 9.6 % 4-13 N = MO%) EOSINOPHIL % (test 6.6 % 0-6 H code = EO%) BASOPHIL % (test code 0.4 % 0-2 N = BA%) NUCLEATED RBC % (test 0.0 % 0-1.0 N code = NRBC%) NEUTROPHIL # (test 3.27 K/mm3 2.0-7.6 N code = NT#) IMMATURE GRANULOCYTE # 0.02 x10 3/uL 0-0.03 N (test code = IG#) LYMPHOCYTE # (test 0.60 K/mm3 1.0-3.8 L code = LY#) MONOCYTE # (test code 0.45 K/mm3 0.1-0.8 N = MO#) EOSINOPHIL # (test 0.31 K/mm3 0.0-0.2 H code = EO#) BASOPHIL # (test code 0.02 K/mm3 0.0-0.2 N = BA#) NUCLEATED RBC # (test 0.00 K/mm3 0.0-0.1 N code = NRBC#) DIFFERENTIAL [id number] 06:15:00 Test Item Value Reference Range Interpretation Comments RBC MORPHOLOGY REQUIRED (test code = RBCM) PLATELET ESTIMATE (test code = PLTEST) ADEQUATE PLATELET MORPHOLOGY (test code = NORMAL PLTMORPH) CBC W/AUTO [id number] 06:15:00 Test Item Value Reference Range Interpretation Comments WHITE BLOOD CELL (test 4.7 K/MM3 3.8-9.8 N code = WBC) RED BLOOD CELL (test 1.98 M/MM3 3.95-5.67 LL CALLED TO GERALD code = RBC) L & READBACK ON 05/02/21 AT 061 3 BY Bonnie,Chest er HEMOGLOBIN (test code 6.0 G/DL 12.4-16.7 LL CALLED TO GERALD = HGB) L & READBACK ON 05/02/21 AT 061 3 BY Bonnie,Chest er HEMATOCRIT (test code 19.8 % 35.9-49.5 LL CALLED TO GERALD = HCT) L & READBACK ON 05/02/21 AT 061 3 BY Bonnie,Chest er MEAN CELL VOLUME (test 100 fL 81.7-96.1 H code = MCV) MEAN CELL HGB (test 30.3 pg 27.6-33.2 N code = MCH) MEAN CELL HGB 30.3 % 32.9-35.5 L CONCETRATION (test code = MCHC) RED CELL DISTRIBUTION 14.4 % 12.1-15.2 N WIDTH (test code = RDW) PLATELET COUNT (test 84 K/MM3 129-368 L code = PLT) MEAN PLATELET VOLUME 10.4 fl 7.4-10.4 N (test code = MPV) NEUTROPHIL % (test 70.2 % 43-75 N code = NT%) IMMATURE GRANULOCYTE % 0.4 % 0.0-2.0 N (test code = IG%) LYMPHOCYTE % (test 12.8 % 14-44 L code = LY%) MONOCYTE % (test code 9.6 % 4-13 N = MO%) EOSINOPHIL % (test 6.6 % 0-6 H code = EO%) BASOPHIL % (test code 0.4 % 0-2 N = BA%) NUCLEATED RBC % (test 0.0 % 0-1.0 N code = NRBC%) NEUTROPHIL # (test 3.27 K/mm3 2.0-7.6 N code = NT#) IMMATURE GRANULOCYTE # 0.02 x10 3/uL 0-0.03 N (test code = IG#) LYMPHOCYTE # (test 0.60 K/mm3 1.0-3.8 L code = LY#) MONOCYTE # (test code 0.45 K/mm3 0.1-0.8 N = MO#) EOSINOPHIL # (test 0.31 K/mm3 0.0-0.2 H code = EO#) BASOPHIL # (test code 0.02 K/mm3 0.0-0.2 N = BA#) NUCLEATED RBC # (test 0.00 K/mm3 0.0-0.1 N code = NRBC#) DIFFERENTIAL [id number] 06:15:00 Test Item Value Reference Range Interpretation Comments RBC MORPHOLOGY REQUIRED (test code = RBCM) PLATELET ESTIMATE (test code = PLTEST) ADEQUATE PLATELET MORPHOLOGY (test code = NORMAL PLTMORPH) PROTHROMBIN [id number] 06:02:00 Test Item Value Reference Range Interpretation Comments PROTHROMBIN TIME 18.9 SECONDS 9.5-12.7 H PATIENT (test code = PTP) INTERNATIONAL NORMAL 1.7 0.86-1.14 H The INR is to be RATIO (test code = used only for INR) monitoring oral anticoagulantth erap y. INDICATION I NR VALUE ---- ---- ---- -------1. Prophylaxis, de ep venous thrombos is, including high risk surgery. 2.0 - 3.0 2. Prophylaxis, deep venous thrombosis, hip surgery, treatm ent for deep venous thrombosis or pulmonary prevention of systemic emboli sm in patients wit h valvular heart disease, atrial fibrillation, tissue heart va lve, or acute myocar dial infarction. 2.0 - 3.0 3. Primer Charger al prosthesis hear t valves, recurre nt systemic emboli sm. 3.0 - 4.5 GLUCOSE BEDSIDE [id number] 20:58:00 Test Item Value Reference Range Interpretation Comments GLUCOSE BEDSIDE TESTING (test code 195 MG/DL 60-99 H = GLUBED) NT PRO-BRAIN NATRIURETIC [id number] 20:11:00 Test Item Value Reference Range Interpretation Comments NT PRO-BRAIN NATRIURETIC PEPTI 2420.0 pg/mL 0-125 H (test code = PROBNP) PLATELET [id number] 20:03:00 Test Item Value Reference Range Interpretation Comments PLATELET COUNT (test code = PLT) 83 K/MM3 129-368 L PROTHROMBIN [id number] 20:01:00 Test Item Value Reference Range Interpretation Comments PROTHROMBIN TIME 18.5 SECONDS 9.5-12.7 H PATIENT (test code = PTP) INTERNATIONAL NORMAL 1.7 0.86-1.14 H The INR is to be RATIO (test code = used only for INR) monitoring oral anticoagulantth erap y. INDICATION I NR VALUE ---- ---- ---- -------1. Prophylaxis, de ep venous thrombos is, including high risk surgery. 2.0 - 3.0 2. Prophylaxis, deep venous thrombosis, hip surgery, treatm ent for deep venous thrombosis or pulmonary prevention of systemic emboli sm in patients wit h valvular heart disease, atrial fibrillation, tissue heart va lve, or acute myocar dial infarction. 2. 0 - 3.0 3. Primer Charger al prosthesis hear t valves, recurre nt systemic emboli sm. 3.0 - 4.5 PTT [id number] 20:01:00 Test Item Value Reference Range Interpretation Comments PTT ACTIVATED (test code = APTT) 32.5 SECONDS 25.1-36.5 N [id number] 20:01:00 Test Item Value Reference Range Interpretation Comments FIBRINOGEN (test code = FIB) 517 mg/dL 200-393 H [id number] 20:01:00 Test Item Value Reference Range Interpretation Comments D-DIMER (test 769 ng/mLFEU 0-499 H Negative Predi ctive Value code = DDIMER) cutoff for DV T & PE: < 500 ng/mL FEUInterp retation: A value of < 500 ng/mL FEU has a NegativeP redictive Value in ruling out a DVT or PE diagnosis .A value of 500 ng/mL or gr eater is considered Positive.Positi ve result cannot be used for the diagnosis of DV T andPE without using o f standard radiological pr ocedures. GLUCOSE BEDSIDE [id number] 16:40:00 Test Item Value Reference Range Interpretation Comments GLUCOSE BEDSIDE TESTING 123 MG/DL 60-99 H Noti fied Nurse~ (test code = GLUBED) - XR SHOULDER 2+V [id number] 14:22:00 [facility] 1950 Sex: M Patient Name: MI MCKENNA Unit No: [id number] EXAMS: CPT CODE: [id number] XR SHOULDER 2+[place] [id number] Examination: Left shoulder series Location code: S17 Comparison: None Discussion: Clinical history is remarkable for fall, pain. 2 views of the left shoulder are submitted. Mineralization is appropriate. No fracture deformity or dislocation is identified. Impression: No acute finding. at 1422 Reported and signed by: Sukumar Ramos M.D. CC: Technologist: Brady Priest (RT) Transcrpt Date/Tm/Trnsp: 05/01/2021 (1422) [id number] Orig Print D/T: S: 05/01/2021 (9773) [facility] NAME: MI MCKENNA [id number] PHYS: [place] [address] : 1950 AGE: 70 SEX: M LOC: Z.636 A PHONE #: [phone] EXAM DATE: 05/01/2021 STATUS: ADM IN FAX #: [phone] RADIOLOGY NO: PAGE 1 Signed ReportGLUCOSE BEDSIDE TESTING 2021-05-01 12:02:00 Test Item Value Reference Range Interpretation Comments GLUCOSE BEDSIDE TESTING 141 MG/DL 60-99 H Noti fied Nurse~ (test code = GLUBED) PROTHROMBIN [id number] 07:46:00 Test Item Value Reference Range Interpretation Comments PROTHROMBIN TIME 17.4 SECONDS 9.5-12.7 H PATIENT (test code = PTP) INTERNATIONAL NORMAL 1.6 0.86-1.14 H The INR is to be RATIO (test code = used only for INR) monitoring oral anticoagulantth erap y. INDICATION I NR VALUE ---- ---- ---- -------1. Prophylaxis, de ep venous thrombos is, including high risk surgery. 2.0 - 3.0 2. Prophylaxis, deep venous thrombosis, hip surgery, treatm ent for deep venous thrombosis or pulmonary prevention of systemic emboli sm in patients wit h valvular heart disease, atrial fibrillation, tissue heart va lve, or acute myocar dial infarction. 2. 0 - 3.0 3. Primer Charger al prosthesis hear t valves, recurre nt systemic emboli sm. 3.0 - 4.5 GLUCOSE BEDSIDE [id number] 07:02:00 Test Item Value Reference Range Interpretation Comments GLUCOSE BEDSIDE TESTING 139 MG/DL 60-99 H Noti fied Nurse~ (test code = GLUBED) GLUCOSE BEDSIDE [id number] 20:40:00 Test Item Value Reference Range Interpretation Comments GLUCOSE BEDSIDE TESTING (test code 161 MG/DL 60-99 H = GLUBED) GLUCOSE BEDSIDE [id number] 15:28:00 Test Item Value Reference Range Interpretation Comments GLUCOSE BEDSIDE TESTING (test code 192 MG/DL 60-99 H = GLUBED) GLUCOSE BEDSIDE [id number] 11:21:00 Test Item Value Reference Range Interpretation Comments GLUCOSE BEDSIDE TESTING (test code 176 MG/DL 60-99 H = GLUBED) - MRA NECK W/O [id number] 10:18:00 [facility] 1950 Sex: M Patient Name: MI MCKENNA Unit No: [id number] EXAMS: CPT CODE: [id number] MRA NECK W/O CONT [id number] HISTORY:Syncope Location: C3 TECHNIQUE: [id number]-[id number] MR images of the neck were obtained. Three-D reformatted images are provided. FINDINGS: Motion artifact and noncontrast technique limits evaluation. Vertebral arteries are patent bilaterally. The visualized common carotid arteries and internal carotid arteries are patent. The carotid bifurcations are not well characterized due to motion artifact. There is question of narrowing involving the proximal right internal carotid artery. IMPRESSION: 1. Limitedexam due to motion artifact and noncontrast technique. There is question of narrowing involving the proximal right internal carotid artery. If clinically indicated further evaluation with carotid CTA or carotid ultrasound is recommended. at 1018 Reported and signed by: Ryne Balderrama MD CC: Technologist: Edgar Cantu (RT) R (CT) (MRI) Transcrpt Date/Tm/Trnsp: 04/30/2021 (1018) [email or web address] Orig Print D/T: S: 04/30/2021 (1021) [facility] NAME: MI MCKENNA [id number] PHYS: [place] [address] : 1950 AGE:70 SEX: M LOC: Z.636 A PHONE #: [phone] EXAM DATE: 04/30/2021 STATUS: ADMIN FAX #: [phone] RADIOLOGY NO: PAGE 1 Signed Report- MRI BRAIN W/O [id number] 10:09:00 [facility] : 1950 Sex: M Patient Name: MI MCKENNA Unit No: [id number] EXAMS: CPT CODE: [id number] MRI BRAIN W/O CONTRAST [id number] HISTORY: Syncope Location: C3 TECHNIQUE: Multiplanar multisequence MR images of the brain were obtainedwithout intravenous contrast. FINDINGS: There is no intracranial hemorrhage, mass or mass effect. The ventricular system and sulci are prominent compatible cerebral volume loss. Microvascular chronic ischemic changes in the periventricular white matter bilaterally. Appropriate flow-voids are present at the skull base. Visualized orbits are unremarkable. Mild mucosal thickening is in ethmoid air cells and maxillary sinuses as well as trace fluid in the sphenoid sinus. IMPRESSION: 1. Cerebral volume loss and microvascular chronic white matter ischemic changes. No evidence of acute infarction. at 1009 Reported and signed by: Ryne Balderrama MD CC: Technologist: Edgar Cantu (RT) R (CT) (MRI) Transcrpt Date/Tm/Trnsp: 04/30/2021 (1009) [email or web address] Orig Print D/T: S: 04/30/2021 (1012) [facility] NAME: MI MCKENNA [id number] PHYS: [place] [address] : 1950 AGE: 70 SEX: M LOC: Z.636 A PHONE #: [phone] EXAM DATE: 04/30/2021 STATUS: ADM IN FAX #: [phone] RADIOLOGY NO: PAGE 1 Signed ReportGLUCOSE BEDSIDE [id number] 06:43:00 Test Item Value Reference Range Interpretation Comments GLUCOSE BEDSIDE TESTING (test code 138 MG/DL 60-99 H = GLUBED) GLUCOSE BEDSIDE [id number] 20:13:00 Test Item Value Reference Range Interpretation Comments GLUCOSE BEDSIDE TESTING (test code 217 MG/DL 60-99 H = GLUBED) GLUCOSE BEDSIDE [id number] 16:12:00 Test Item Value Reference Range Interpretation Comments GLUCOSE BEDSIDE TESTING (test code 126 MG/DL 60-99 H = GLUBED) GLUCOSE BEDSIDE [id number] 11:17:00 Test Item Value Reference Range Interpretation Comments GLUCOSE BEDSIDE TESTING (test code 132 MG/DL 60-99 H = GLUBED) GLUCOSE BEDSIDE [id number] 07:29:00 Test Item Value Reference Range Interpretation Comments GLUCOSE BEDSIDE TESTING (test code 105 MG/DL 60-99 H = GLUBED) GLUCOSE BEDSIDE [id number] 20:29:00 Test Item Value Reference Range Interpretation Comments GLUCOSE BEDSIDE TESTING (test code 136 MG/DL 60-99 H = GLUBED) GLUCOSE BEDSIDE [id number] 17:19:00 Test Item Value Reference Range Interpretation Comments GLUCOSE BEDSIDE TESTING (test code 134 MG/DL 60-99 H = GLUBED) - XR TIBIA/FIBULA 2 V [id number] 15:29:00 [facility] 1950 Sex: M Patient Name: MI MCKENNA Unit No: [id number] EXAMS: CPT CODE: [id number] XR TIBIA/[place]IBUL[place] 2 [place] [id number] EXAMINATION: - XR TIBIA/FIBULA 2 V RT. LOCATION: B2. HISTORY: pain after fall. COMPARISON: None. TECHNIQUE: AP and lateral views of the right tibia and fibula were obtained. FINDINGS: No acute fracture or dislocation is identified. Subcutaneous edema is seen about the leg and ankle. Arterial calcifications are also noted in the soft tissues. IMPRESSION: Subcutaneous edema about the leg and ankle. No acute osseous abnormality is identified. at 1529 Reported and signed by: Amaury Marcos MD CC: Technologist: Gonzalez Fernandez, RT(R) Transcrpt Date/Tm/Trnsp: 04/28/2021 (1529) [email or web address] Orig Print D/T: S: 04/28/2021 (1532) [facility] NAME: MI MCKENNA [id number] PHYS: Judd KUMAR Do, [place] [address] : 1950 AGE: 70 SEX: M LOC: Z.636 A PHONE #: [phone] EXAM DATE: 04/28/2021 STATUS: ADM IN FAX #: [phone] RADIOLOGY NO: PAGE 1 Signed ReportVITAMIN [id number] 14:08:00 Test Item Value Reference Range Interpretation Comments VITAMIN B12 (test code = VITB12) 909 pg/mL 239-931 N FOLIC ACID BY [id number] 14:08:00 Test Item Value Reference Range Interpretation Comments FOLIC ACID BY BERNARD 7.8 ng/mL REFERENCE VALUES: (test code = FOLR) NORMAL: 2 .76 - >20 ng/ML DEFICIENT: 1.04 - 2.79 ng/ML THYROID STIMULATING [id number] 14:08:00 Test Item Value Reference Range Interpretation Comments THYROID STIMULATING 1.830 MIU/L 0.465-4.68 N Please b e aware that HORMONE (test code = bias re sults for TSH TSH) may occur forpa tient who are taking Biotin suppleme nts. [id number] 14:08:00 Test Item Value Reference Range Interpretation Comments FERRITIN (test code = ELIN) 519.0 NG/ML 6.24-137 H VITAMIN [id number] 13:38:00 Test Item Value Reference Range Interpretation Comments VITAMIN B12 (test code = VITB12) pg/mL 239-931 FOLIC ACID BY [id number] 13:38:00 Test Item Value Reference Range Interpretation Comments FOLIC ACID BY BERNARD (test code = FOLR) ng/mL THYROID STIMULATING [id number] 13:38:00 Test Item Value Reference Range Interpretation Comments THYROID STIMULATING 1.830 MIU/L 0.465-4.68 N Please b e aware that HORMONE (test code = bias re sults for TSH TSH) may occur forpa tient who are taking Biotin suppleme nts. [id number] 13:38:00 Test Item Value Reference Range Interpretation Comments FERRITIN (test code = ELIN) 519.0 NG/ML 6.24-137 H VITAMIN [id number] 13:34:00 Test Item Value Reference Range Interpretation Comments VITAMIN B12 (test code = VITB12) pg/mL 239-931 FOLIC ACID BY [id number] 13:34:00 Test Item Value Reference Range Interpretation Comments FOLIC ACID BY BERNARD (test code = FOLR) ng/mL THYROID STIMULATING [id number] 13:34:00 Test Item Value Reference Range Interpretation Comments THYROID STIMULATING 1.830 MIU/L 0.465-4.68 N Please b e aware that HORMONE (test code = bias re sults for TSH TSH) may occur forpa tient who are taking Biotin suppleme nts. [id number] 13:34:00 Test Item Value Reference Range Interpretation Comments FERRITIN (test code = ELIN) NG/ML 6.24-137 GLUCOSE BEDSIDE [id number] 13:19:00 Test Item Value Reference Range Interpretation Comments GLUCOSE BEDSIDE TESTING (test code 236 MG/DL 60-99 H = GLUBED) FE W/TOTAL IRON BINDING CAP.[id number] 12:19:00 Test Item Value Reference Range Interpretation Comments SERUM IRON (test code = IRON) 35 MCG/DL 49-181 L TOTAL IRON BINDING CAPACITY (test 259 MCG/DL 261-462 L code = TIBC) IRON SATURATION (test code = 14 % 12-57 N FESAT) FE W/TOTAL IRON BINDING CAP.2021-04-28 12:10:00 Test Item Value Reference Range Interpretation Comments SERUM IRON (test code = IRON) 35 MCG/DL 49-181 L TOTAL IRON BINDING CAPACITY (test MCG/DL 261-462 code = TIBC) IRON SATURATION (test code = FESAT) % 12-57 COMPREHENSIVE METABOLIC [id number] 01:12:00 Test Item Value Reference Range Interpretation Comments SODIUM (test code 137 MMOL/L 137-145 N = NA) POTASSIUM (test 4.5 MMOL/L 3.5-5.1 N code = K) CHLORIDE (test 104 MMOL/L 98-107 N code = CL) CARBON DIOXIDE 25 MMOL/L 22-30 N (test code = CO2) GLUCOSE (test 175 MG/DL 74-106 H code = GLU) BLOOD UREA 54 MG/DL 9-20 H NITROGEN (test code = BUN) GLOMERULAR 31 Reporting units : FILTRATION RATE ml/min/1.73 m2 (Modified (test code = GFR) MDRD Formu la)Reference Range: > or = 6 0 ml/min/1.73 m2 CREATININE (test 2.50 MG/DL 0.66-1.25 H code = CREAT) TOTAL PROTEIN 6.5 G/DL 6.2-7.6 N [facility] Clinical Diagnostic (test code = has made us claudette re of PROT) newinformation regarding the potential i nterference ofEltrombopag ( a bone marrow stimulan t used to treatthrombocyt onmenia and aplastic anemia ) with specific assays on the Vitros 5600 of which Total Protein is one of thoseassays per formed in our lab.Interfe rence testing perform ed at Ortho determined that Eltrombopag does interfere with Vitros Total Protein asfollowsEltrom bopag Interference fo r Vitros Product Total Protein:======= Eltrombopag Max Observed Av g. BiasConcentrati on Concentration Concentration== ==== 2.5 mg/dl 6.0 g/dl +0.41 +0.34 3.5 mg/dl 6.0 g /dl +0.50 +0.45 5 mg/dl 6 .0 g/dl +0.73 +0.65 2.5 mg/dl 8.0 g/dl +0.44 +0.4 1 3.5 mg/dl 8.0 g/dl +0.55 +0.52 5 mg/dl 8.0 g/dl +0.86 +0.77 ALBUMIN (test 3.2 G/DL 3.5-5.0 L code = ALB) CALCIUM (test 9.0 MG/DL 8.4-10.2 N code = CA) BILIRUBIN TOTAL 0.4 MG/DL 0.2-1.3 N Eltrombopag Interference (test code = for Vitros Prod uct TBil, BILT) BuBc: Assa y Eltrombopag Marlyn lyte/ Max Observed Avg. B ias Concentration C oncentration Concentration== ====TBil 7mg/dl TBil/ 1. 2mg/dl +0.23mg.dl +0.2 0mg/dlBuBc 3.5mg/dl Bu/0.8 mg/dl +0.25mg/dl +0.2 4mg/dlBuBc 7 mg/dl Bu/14.2mg /dl +0.38mg/dl +0.2 5mg/dlBuBc 5mg/dl Bc/0mg/d l +0.25mg/dl +0.15mg/dlBuBc 3.5mg/dl Bc/2.8mg/dl +0. 25mg/dl +0.23mg/dl SGOT/AST (test 40 UNITS/L 17-59 N code = AST) SGPT/ALT (test 29 UNITS/L <50 code = ALT) ALKALINE 92 UNITS/L 38-126 N PHOSPHATASE (test code = ALKP) [id number] 01:12:00 Test Item Value Reference Range Interpretation Comments TROPONIN-I (test code = TROPI) < 0.012 NG/ML 0.012-0.033 L PROTHROMBIN [id number] 01:04:00 Test Item Value Reference Range Interpretation Comments PROTHROMBIN TIME 16.4 SECONDS 9.5-12.7 H PATIENT (test code = PTP) INTERNATIONAL NORMAL 1.5 0.86-1.14 H The INR is to be RATIO (test code = used only for INR) monitoring oral anticoagulantth erap y. INDICATION I NR VALUE ---- ---- ---- -------1. Prophylaxis, de ep venous thrombos is, including high risk surgery. 2.0 - 3.0 2. Prophylaxis, deep venous thrombosis, hip surgery, treatm ent for deep venous thrombosis or pulmonary prevention of systemic emboli sm in patients wit h valvular heart disease, atrial fibrillation, tissue heart va lve, or acute myocar dial infarction. 2.0 - 3.0 3. Primer Charger al prosthesis hear t valves, recurre nt systemic emboli sm. 3.0 - 4.5 PTT [id number] 01:04:00 Test Item Value Reference Range Interpretation Comments PTT ACTIVATED (test code = APTT) 50.2 SECONDS 25.1-36.5 H COMPREHENSIVE METABOLIC [id number] 01:01:00 Test Item Value Reference Range Interpretation Comments SODIUM (test code 137 MMOL/L 137-145 N = NA) POTASSIUM (test 4.5 MMOL/L 3.5-5.1 N code = K) CHLORIDE (test 104 MMOL/L 98-107 N code = CL) CARBON DIOXIDE 25 MMOL/L 22-30 N (test code = CO2) GLUCOSE (test 175 MG/DL 74-106 H code = GLU) BLOOD UREA 54 MG/DL 9-20 H NITROGEN (test code = BUN) GLOMERULAR 31 Reporting units : FILTRATION RATE ml/min/1.73 m2 (Modified (test code = GFR) MDRD Formu la)Reference Range: > or = 6 0 ml/min/1.73 m2 CREATININE (test 2.50 MG/DL 0.66-1.25 H code = CREAT) TOTAL PROTEIN 6.5 G/DL 6.2-7.6 N [facility] Clinical Diagnostic (test code = has made us claudette re of PROT) newinformation regarding the potential i nterference ofEltrombopag ( a bone marrow stimulan t used to treatthrombocyt onmenia and aplastic anemia ) with specific assays on the Vitros 5600 of which Total Protein is one of thoseassays per formed in our lab.Interfe rence testing perform ed at Ortho determined that Eltrombopag does interfere with Vitros Total Protein asfollowsEltrom bopag Interference fo r Vitros Product Total Protein:======= Eltrombopag Max Observed Av g. BiasConcentrati on Concentration Concentration== ==== 2.5 mg/dl 6.0 g/dl +0.41 +0.34 3.5 mg/dl 6.0 g /dl +0.50 +0.45 5 mg/dl 6 .0 g/dl +0.73 +0.65 2.5 mg/dl 8.0 g/dl +0.44 +0.4 1 3.5 mg/dl 8.0 g/dl +0.55 +0.52 5 mg/dl 8.0 g/dl +0.86 +0.77 ALBUMIN (test 3.2 G/DL 3.5-5.0 L code = ALB) CALCIUM (test 9.0 MG/DL 8.4-10.2 N code = CA) BILIRUBIN TOTAL 0.4 MG/DL 0.2-1.3 N Eltrombopag Interference (test code = for Vitros Prod uct TBil, BILT) BuBc: Assa y Eltrombopag Marlyn lyte/ Max Observed Avg. B ias Concentration C oncentration Concentration== ====TBil 7mg/dl TBil/ 1. 2mg/dl +0.23mg.dl +0.2 0mg/dlBuBc 3.5mg/dl Bu/0.8 mg/dl +0.25mg/dl +0.2 4mg/dlBuBc 7 mg/dl Bu/14.2mg /dl +0.38mg/dl +0.2 5mg/dlBuBc 5mg/dl Bc/0mg/d l +0.25mg/dl +0.15mg/dlBuBc 3.5mg/dl Bc/2.8mg/dl +0. 25mg/dl +0.23mg/dl SGOT/AST (test 40 UNITS/L 17-59 N code = AST) SGPT/ALT (test 29 UNITS/L <50 code = ALT) ALKALINE 92 UNITS/L 38-126 N PHOSPHATASE (test code = ALKP) [id number] 01:01:00 Test Item Value Reference Range Interpretation Comments TROPONIN-I (test code = TROPI) NG/ML 0.0-0.045 URINALYSIS [id number] 00:53:00 Test Item Value Reference Range Interpretation Comments UA COLOR (test code = YELLOW YELLOW COLU) UA APPEARANCE (test code very cloudy CLEAR = APPU) UA GLUCOSE DIPSTICK (test NORMAL MG/DL NORMAL code = DGLUU) UA BILIRUBIN DIPSTICK NEGATIVE MG/DL NEGATIVE (test code = BILU) UA KETONE DIPSTICK (test NEGATIVE MG/DL NEGATIVE code = KETU) UA SPECIFIC GRAVITY (test 1.010 1.003-1.030 N code = SGU) UA BLOOD DIPSTICK (test 10 Rc/mm3 NEGATIVE A code = HELEN) UA PH DIPSTICK (test code 8.0 5.0-9.0 N = PERNELL) UA PROTEIN DIPSTICK (test 100 MG/DL NEGATIVE A code = PROU) UA UROBILINIOGEN DIPSTICK NORMAL MG/DL NORMAL (test code = URO) UA NITRITE DIPSTICK (test POSITIVE NEGATIVE A code = MISTY) UA LEUKOCYTE ESTERASE 500 /mm3 NEGATIVE A DIPSTICK (test code = LEUU) UA CULTURE NEEDED? (test YES,WBC>10 & EPI<25 Culture Chk code = UACULT) Criteria SOURCE OF URINE: CLEAN CATCHUA [id number] 00:53:00 Test Item Value Reference Range Interpretation Comments UA RBC (test code = RBCU) 0-3 RBC/HPF 0-3 UA WBC (test code = XWBCU) 10-20 WBC/HPF 0-5 A UA EPITHELIAL CELLS (test code RARE EPI/HPF FEW = EPIU) UA TRIPLE PHOSPHATE CRYSTALS FEW #/HPF NONE A (test code = TRPHOSU) UA BACTERIA (test code = XBACU) MANY NONE A SOURCE OF URINE: CLEAN CATCHCBC W/AUTO [id number] 00:48:00 Test Item Value Reference Range Interpretation Comments WHITE BLOOD CELL (test code = 5.0 K/MM3 3.8-9.8 N WBC) RED BLOOD CELL (test code = 2.44 M/MM3 3.95-5.67 L RBC) HEMOGLOBIN (test code = HGB) 7.5 G/DL 12.4-16.7 L HEMATOCRIT (test code = HCT) 23.2 % 35.9-49.5 L MEAN CELL VOLUME (test code = 95 fL 81.7-96.1 N MCV) MEAN CELL HGB (test code = MCH) 30.7 pg 27.6-33.2 N MEAN CELL HGB CONCETRATION 32.3 % 32.9-35.5 L (test code = MCHC) RED CELL DISTRIBUTION WIDTH 14.3 % 12.1-15.2 N (test code = RDW) PLATELET COUNT (test code = 109 K/MM3 129-368 L PLT) MEAN PLATELET VOLUME (test code 10.0 fl 7.4-10.4 N = MPV) NEUTROPHIL % (test code = NT%) 71.5 % 43-75 N IMMATURE GRANULOCYTE % (test 0.2 % 0.0-2.0 N code = IG%) LYMPHOCYTE % (test code = LY%) 13.7 % 14-44 L MONOCYTE % (test code = MO%) 7.8 % 4-13 N EOSINOPHIL % (test code = EO%) 6.2 % 0-6 H BASOPHIL % (test code = BA%) 0.6 % 0-2 N NUCLEATED RBC % (test code = 0.0 % 0-1.0 N NRBC%) NEUTROPHIL # (test code = NT#) 3.55 K/mm3 2.0-7.6 N IMMATURE GRANULOCYTE # (test 0.01 x10 3/uL 0-0.03 N code = IG#) LYMPHOCYTE # (test code = LY#) 0.68 K/mm3 1.0-3.8 L MONOCYTE # (test code = MO#) 0.39 K/mm3 0.1-0.8 N EOSINOPHIL # (test code = EO#) 0.31 K/mm3 0.0-0.2 H BASOPHIL # (test code = BA#) 0.03 K/mm3 0.0-0.2 N NUCLEATED RBC # (test code = 0.00 K/mm3 0.0-0.1 N NRBC#) URINALYSIS [id number] 00:46:00 Test Item Value Reference Range Interpretation Comments UA COLOR (test code = COLU) YELLOW YELLOW UA APPEARANCE (test code = very cloudy CLEAR APPU) UA GLUCOSE DIPSTICK (test code NORMAL MG/DL NORMAL = DGLUU) UA BILIRUBIN DIPSTICK (test NEGATIVE MG/DL NEGATIVE code = BILU) UA KETONE DIPSTICK (test code NEGATIVE MG/DL NEGATIVE = KETU) UA SPECIFIC GRAVITY (test code 1.010 1.003-1.030 N = SGU) UA BLOOD DIPSTICK (test code = 10 Rc/mm3 NEGATIVE A HELEN) UA PH DIPSTICK (test code = 8.0 5.0-9.0 N PERNELL) UA PROTEIN DIPSTICK (test code 100 MG/DL NEGATIVE A = PROU) UA UROBILINIOGEN DIPSTICK NORMAL MG/DL NORMAL (test code = URO) UA NITRITE DIPSTICK (test code POSITIVE NEGATIVE A = MISTY) UA LEUKOCYTE ESTERASE DIPSTICK 500 /mm3 NEGATIVE A (test code = LEUU) UA CULTURE NEEDED? (test code Criteria Culture Chk = UACULT) SOURCE OF URINE: CLEAN CATCHUA [id number] 00:46:00 Test Item Value Reference Range Interpretation Comments UA RBC (test code = RBCU) RBC/HPF 0-3 UA WBC (test code = XWBCU) WBC/HPF 0-5 UA EPITHELIAL CELLS (test code = EPI/HPF FEW EPIU) UA BACTERIA (test code = XBACU) NONE SOURCE OF URINE: CLEAN CATCHURINALYSIS [id number] 00:46:00 Test Item Value Reference Range Interpretation Comments UA COLOR (test code = COLU) YELLOW YELLOW UA APPEARANCE (test code = very cloudy CLEAR APPU) UA GLUCOSE DIPSTICK (test code NORMAL MG/DL NORMAL = DGLUU) UA BILIRUBIN DIPSTICK (test NEGATIVE MG/DL NEGATIVE code = BILU) UA KETONE DIPSTICK (test code NEGATIVE MG/DL NEGATIVE = KETU) UA SPECIFIC GRAVITY (test code 1.010 1.003-1.030 N = SGU) UA BLOOD DIPSTICK (test code = 10 Rc/mm3 NEGATIVE A HELEN) UA PH DIPSTICK (test code = 8.0 5.0-9.0 N PERNELL) UA PROTEIN DIPSTICK (test code 100 MG/DL NEGATIVE A = PROU) UA UROBILINIOGEN DIPSTICK NORMAL MG/DL NORMAL (test code = URO) UA NITRITE DIPSTICK (test code POSITIVE NEGATIVE A = MISTY) UA LEUKOCYTE ESTERASE DIPSTICK 500 /mm3 NEGATIVE A (test code = LEUU) UA CULTURE NEEDED? (test code Criteria Culture Chk = UACULT) SOURCE OF URINE: CLEAN CATCHUA [id number] 00:46:00 Test Item Value Reference Range Interpretation Comments UA RBC (test code = RBCU) RBC/HPF 0-3 UA WBC (test code = XWBCU) WBC/HPF 0-5 UA EPITHELIAL CELLS (test code = EPI/HPF FEW EPIU) UA BACTERIA (test code = XBACU) NONE SOURCE OF URINE: CLEAN CATCHCOVID 19 INHOUSE [id number] 20:58:00 Test Item Value Reference Range Interpretation Comments COVID 19 INHOUSE AG NEGATIVE Negative Per manu facturer, (test code = negative result s should [id number]) be treated aspr esumptive and, if inconsi stent with clinical signs andsymptoms or necessary for patient man agement, should betested with an alternative mol ecular assay. Negative resultsdo not preclude SA RS-CoV-2 infection and s hould not be usedas the s ole basis for patient man agement decisions. Nega tive results should be considered in t he context of apatient's r ecent exposures, hist ory, presence of cli nicalsigns and symptoms co nsistent with COVID-19. PROTHROMBIN [id number] 17:27:00 Test Item Value Reference Range Interpretation Comments PT PATIENT (test code = PTP) 16.8 SECONDS 9.3-12.9 H INTERNATIONAL NORMAL RATIO 1.49 INR Unit 0.8-1.2 H (test code = INR) THROMBOPLASTIN TIME [id number] 17:27:00 Test Item Value Reference Range Interpretation Comments THROMBOPLASTIN TIME PARTIAL 44.1 SECONDS 26-35 H (test code = PTT) CBC W/AUTO [id number] 17:00:00 Test Item Value Reference Range Interpretation Comments WHITE BLOOD CELL 5.5 K/mm3 3.5-11.0 N (test code = WBC) RED BLOOD CELL (test 2.68 M/mm3 4.70-6.10 L code = RBC) HEMOGLOBIN (test code 8.2 G/DL 12.3-15.9 L = HGB) HEMATOCRIT (test code 25.0 % 35.8-46.7 L = HCT) MEAN CELL VOLUME 93.3 Fl 86.3-98.9 N (test code = MCV) MEAN CELL HGB (test 30.6 pg 28.9-34.4 N code = MCH) MEAN CELL HGB 32.8 G/DL 32.1-34.5 N CONCETRATION (test code = MCHC) RED CELL DISTRIBUTION 14.1 SD 11.5-14.5 N WIDTH (test code = RDW) PLATELET COUNT (test 100 K/mm3 150-450 L code = PLT) MEAN PLATELET VOLUME 10.90 fL 7.0-9.6 H (test code = MPV) NEUTROPHIL % (test 76.2 % 40-76 H code = NT%) IMMATURE GRANULOCYTE 0.7 % 0.0-5.0 N % (test code = IG%) LYMPHOCYTE % (test 8.5 % 20.5-51.1 L code = LY%) MONOCYTE % (test code 8.1 % 1.7-9.3 N = MO%) EOSINOPHIL % (test 5.8 % 0.0-6.0 N code = EO%) BASOPHIL % (test code 0.7 % 0.0-2.0 N = BA%) NUCLEATED RBC % (test 0.0 /100WBC% 0.0-1.0 N code = NRBC%) NEUTROPHIL # (test 4.2 K/mm3 1.8-7.6 N code = NT#) IMMATURE GRANULOCYTE 0.04 x10 3/uL 0.00-0.03 H # (test code = IG#) LYMPHOCYTE # (test 0.5 K/mm3 0.6-3.0 L code = LY#) MONOCYTE # (test code 0.5 K/mm3 0.2-1.5 N = MO#) EOSINOPHIL # (test 0.3 K/mm3 0.0-0.4 N code = EO#) BASOPHIL # (test code 0.0 K/mm3 0.0-0.2 N = BA#) NUCLEATED RBC # (test 0.0 K/mm3 0.00-0.01 N code = NRBC#) MANUAL DIFF REQUIRED NO DIFF/SCN CRITERIA SLIDE R GERTRUDISW (test code = MDIFF) CONSISTA NT WITH AUTO DIFFERENTI AL. BASIC METABOLIC [id number] 16:52:00 Test Item Value Reference Range Interpretation Comments SODIUM (test code = NA) 137 mmol/L 134-147 N POTASSIUM (test code = K) 5.2 mmol/L 3.4-5.0 H CHLORIDE (test code = CL) 108 mmol/L 100-108 N CARBON DIOXIDE (test code = CO2) 23 mmol/L 21-32 N ANION GAP (test code = GAP) 6.0 GAP calc 4.0-15.0 N GLUCOSE (test code = GLU) 146 MG/DL 70-110 H BLOOD UREA NITROGEN (test code = 49 MG/DL 7-18 H BUN) GLOMERULAR FILTRATION RATE (test 29 estGFR >60 L code = GFR) CREATININE (test code = CREAT) 2.4 MG/DL 0.8-1.3 H CALCIUM (test code = CA) 8.5 MG/DL 8.5-10.1 N Completed by Nursing: NOCREATINE KINASE (CK)2021-04-27 16:52:00 Test Item Value Reference Range Interpretation Comments CREATINE KINASE (CK) (test code = 57 Unit/L 26-192 N CK) Completed by Nursing: NONT PRO-BRAIN NATRIURETIC [id number] 16:52:00 Test Item Value Reference Range Interpretation Comments NT PRO-BRAIN NATRIURETIC PEPTI 1361 PG/ML 0-100 H (test code = PROBNP) Completed by Nursing: [id number] 16:52:00 Test Item Value Reference Range Interpretation Comments TROPONIN-I (test < 0.015 NG/ML 0.000-0.045 N Negative: </= 0.045 code = TROPI) Positive: >/= 0.046 Correlation wit h serial results, other cardiac markers, and cl inical findings is nec essary to determine the c linical significance of this result. Quantit ative results using d ifferent methodologies s hould not be compared to one another as nume rical results may briseida yby method. Completed by Nursing: NOCBC W/AUTO [id number] 16:28:00 Test Item Value Reference Range Interpretation Comments WHITE BLOOD CELL (test code = WBC) 5.5 K/mm3 3.5-11.0 N RED BLOOD CELL (test code = RBC) 2.68 M/mm3 4.70-6.10 L HEMOGLOBIN (test code = HGB) 8.2 G/DL 12.3-15.9 L HEMATOCRIT (test code = HCT) 25.0 % 35.8-46.7 L MEAN CELL VOLUME (test code = MCV) 93.3 Fl 86.3-98.9 N MEAN CELL HGB (test code = MCH) 30.6 pg 28.9-34.4 N MEAN CELL HGB CONCETRATION (test 32.8 G/DL 32.1-34.5 N code = MCHC) RED CELL DISTRIBUTION WIDTH (test SD 11.5-14.5 N code = RDW) PLATELET COUNT (test code = PLT) 100 K/mm3 150-450 L MEAN PLATELET VOLUME (test code = fL 7.0-9.6 H MPV) NEUTROPHIL % (test code = NT%) % 40-76 H IMMATURE GRANULOCYTE % (test code % 0.0-5.0 N = IG%) LYMPHOCYTE % (test code = LY%) % 20.5-51.1 L MONOCYTE % (test code = MO%) % 1.7-9.3 N EOSINOPHIL % (test code = EO%) % 0.0-6.0 N BASOPHIL % (test code = BA%) % 0.0-2.0 N NUCLEATED RBC % (test code = /100WBC% 0.0-1.0 N NRBC%) NEUTROPHIL # (test code = NT#) K/mm3 1.8-7.6 N IMMATURE GRANULOCYTE # (test code x10 3/uL 0.00-0.03 H = IG#) LYMPHOCYTE # (test code = LY#) K/mm3 0.6-3.0 L MONOCYTE # (test code = MO#) K/mm3 0.2-1.5 N EOSINOPHIL # (test code = EO#) K/mm3 0.0-0.4 N BASOPHIL # (test code = BA#) K/mm3 0.0-0.2 N NUCLEATED RBC # (test code = K/mm3 0.00-0.01 N NRBC#) MANUAL DIFF REQUIRED (test code = DIFF/SCN CRITERIA MDIFF) - CT C-SPINE W/O [id number] 15:41:00 [facility] 1950 Sex: M Name: MI MCKENNA [facility] : 1950 Age/S: 70 / M [address] [address] [place] Unit #:[id number] Loc: [place] [address] Phys: Briseida Montana MD Acct: [id number] Dis Date: Status:REG ER PHONE #: [phone] Exam Date: 04/27/2021 1520 FAX #: Reason: s/p fall EXAMS: CPT: [id number] CT C-SPINE W/O CONT 68730 CLINICAL HISTORY: Syncope, weakness. Fall CT brain, unenhanced. Reformatted sagittal and coronal images. COMPARISON: None. Automated exposure control, iterative reconstruction technique, and/or adjustment of mA and/or kV according to patient's size was utilized for optimum radiation dose reduction. An unenhanced study of the brain was performed. Diffuse cortical atrophy seen in the moderate range. Hypodensity in white matter suggests chronic microvascular ischemia.. No hemorrhage, mass effect, or findings of CVA can be seen. No evidence of ventricular shift. The posterior fossa structures appear to be intact. Mild cerebellar atrophy. Bone window settings do not show anyevidence of skull fracture. Visualized sinuses appear to be clear. . IMPRESSION: No acute appearing intracranial abnormality. Senescent changes. REASON FOR EXAM: Neck pain, syncope fall CT cervical spine, unenhanced with reformatted sagittal and coronal images. COMPARISON: None All studies use automated exposure control, iterative reconstruction technique, and/or adjustment of mA and/or kV according to patient size for optimum radiation dose reduction The study is performed from above the dens through the lung apices. The vertebral bodies are free of fracture and have symmetric appearance. The posterior arch of C1 is ununited, normal variant. PAGE 1 Signed Report (CONTINUED) Name: MI MCKENNA [facility] [place] : 1950 Age/S: 70 / M [address] [address] Unit #: [id number] Loc: [place] [address] Phys: Briseida Montana MD Acct: [id number] Dis Date: Status: REG ER PHONE #: [phone] Exam Date: 04/27/2021 1520 FAX #: Reason: s/p fall EXAMS: CPT: [id number] CT C-SPINE W/O CONT 05589 <Continued> Scattered mild degenerative changes are seen with some facet hypertrophy and uncinate process hypertrophy. Borderline spinal stenosis seen beginning at the C3 level. The spinal stenosis progressive at the C5-6 level where bony hypertrophy seen posteriorly and uncinate process hyper trophy occurs. Spinal canal diameter on the order of 7 mm. Similar spinal stenosis changes C6-7 withdegenerative osteophytes along posterior vertebral body margin as well as mild foraminal stenosis produced.. The soft tissue window settings do not reveal apical pneumothorax or paraspinal hematoma. Reformatted images show good alignment and no fractures can be identified, either. No scoliosis evident. The C1-2 articulation is intact. IMPRESSION: No fracture seen in the cervical spine. Good alignment. Spinal stenosis, moderate, at the C5-6 and C6-7 levels due to posterior osteophytes and spondylosis changes. Prominent foraminal stenosis present as well. Borderline spinal stenosis at the upper cervical levels.. Location: U19 at 1541 Reported and signed by: Ryne Ayers M.D. CC: Briseida Montana MD Technologist:KristinaHoang, RT(R)(CT) CTDI: DLP: Trnscb Date/Time: 04/27/2021 (0627) [email or web address] Orig Print D/T: S: 04/27/2021 (8782) PAGE 2 Signed Report- CT HEAD/BRAIN W/O [id number] 15:41:00 [facility] 1950 Sex: M Name: MI MCKENNA [facility] : 1950 Age/S: 70 / M [id number] Unit #: [id number] Loc: [place] [address] Phys: Briseida Montana MD Acct: [id number] Dis Date: Status:REG ER PHONE #: [phone] Exam Date: 04/27/2021 1526 FAX #: Reason: syncope EXAMS: CPT: [id number] CT HEAD/BRAIN W/O CONT 23042 CLINICAL HISTORY: Syncope, weakness. Fall CT brain, unenhanced. Reformatted sagittal and coronal images. COMPARISON: None. Automated exposure control, iterative reconstruction technique, and/or adjustment of mA and/or kV according to patient's size was utilized for optimum radiation dose reduction. An unenhanced study of the brain was performed. Diffuse cortical atrophy seen in the moderate range. Hypodensity in white matter suggests chronic microvascular ischemia.. No hemorrhage, mass effect, or findings of CVA can be seen. No evidence of ventricular shift. The posterior fossa structures appear to be intact. Mild cerebellar atrophy. Bone window settings do not show any evidence of skull fracture. Visualized sinuses appear to be clear. . IMPRESSION: No acute appearing intracranial abnormality. Senescent changes. REASON FOR EXAM: Neck pain, syncope fall CT cervicalspine, unenhanced with reformatted sagittal and coronal images. COMPARISON: None All studies use automated exposure control, iterative reconstruction technique, and/or adjustment of mA and/or kV according to patient size for optimum radiation dose reduction The study is performed from above the dens through the lung apices. The vertebral bodies are free of fracture and have symmetric appearance. The posterior arch of C1 is ununited, normal variant. PAGE 1 Signed Report (CONTINUED) Name: MI MCKENNA [facility] [place] : 1950 Age/S: 70 / M [address] [address] Unit #: [id number] Loc: [place] [address] Phys: Briseida Montana MD Acct: [id number] Dis Date: Status: REG ER PHONE #: [phone] Exam Date: 04/27/2021 1520 FAX #: Reason: syncope EXAMS: CPT: [id number] CT HEAD/BRAIN W/O CONT 70641 <Continued> Scattered mild degenerative changes are seen with some facet hypertrophy and uncinate process hypertrophy. Borderline spinal stenosis seen beginning at the C3 level. The spinal stenosis progressive at the C5-6 level where bony hypertrophy seen posteriorly and uncinate process hypertrophy occurs. Spinal canal diameter on the order of 7 mm. Similar spinal stenosis changes C6-7 with degenerative osteophytes along posterior vertebral body margin as well as mild foraminal stenosis produced.. The soft tissue window settings do not reveal apical pneumothorax or paraspinal hematoma. Reformatted images show good alignment and no fractures can be identified, either. No scoliosis evident. The C1-2 articulation is intact. IMPRESSION: No fracture seen in the cervical spine. Good alignment. Spinal stenosis, moderate, at the C5-6 and C6-7 levels due to posterior osteophytes and spondylosis changes. Prominent foraminal stenosis present as well. Borderline spinal stenosis at the upper cervical levels.. Location: U19 Electronically Signed by Maldonado Ayers on 1at 1541 Reported and signed by: Ryne Ayers M.D. CC: Briseida Montana MD Technologist:Amada Coley, RT(R)(CT) CTDI: DLP: Trnscb Date/Time: 04/27/2021 (1541) [email or web address] Orig Print D/T: S:04/27/2021 (1471) PAGE 2 Signed Report- XR CHEST 1 [id number] 15:40:00 [facility] 1950 Sex: M Name: MI MCKENNA [facility] : 1950 Age/S: 70 / M [id number] Unit #:[id number] Loc: [place] [address] Phys: Briseida Montana MD Acct: [id number] Dis Date: Status:REG ER PHONE #: [phone] Exam Date: 04/27/2021 1525 FAX #: Reason: syncope EXAMS: CPT: [id number] XR CHEST 1 V 60556 Fluoro Time: DAP (Gy m2): Air Kerma (mGy): EXAM: XR Chest 1 View INDICATION: syncope LOCATION CODE: B2 COMPARISON: Chest radiograph dated 04/22/2021 TECHNIQUE: Frontal view of the chest was obtained. FINDINGS: The lungs are clear. There is no pleural effusion or pneumothorax. The cardiomediastinal silhouette is unchanged. No acute osseous abnormality is identified. IMPRESSION: No acute cardiopulmonary abnormality. at 1540 Reported and signed by: Estella Green MD CC: Briseida Montana MD PAGE 1Signed Report Name: MI MCKENNA [facility] : 1950 Age/S: 70 / M [address] [facility] Unit #: [id number] Loc: [place] [address] Phys: Briseida Montana MD Acct: [id number] Dis Date: Status: REG ER PHONE #: [phone] Exam Date: 04/27/2021 1529 FAX #: Reason: syncope EXAMS:CPT: [id number] XR CHEST 1 V 75600 Fluoro Time: DAP (Gy m2): Air Kerma (mGy): <Continued> Technologist: Amada Coley RT(R)(CT) Trnscb Date/Time: 04/27/2021 (5683) [email or web address] Orig Print D/T: S:04/27/2021 (5465) PAGE 2 Signed ReportCBC W/AUTO [id number] 14:49:00 Test Item Value Reference Range Interpretation Comments WHITE BLOOD CELL 3.4 K/mm3 3.5-11.0 L (test code = WBC) RED BLOOD CELL (test 2.35 M/mm3 4.70-6.10 L code = RBC) HEMOGLOBIN (test code 7.2 G/DL 12.3-15.9 L = HGB) HEMATOCRIT (test code 22.0 % 35.8-46.7 L = HCT) MEAN CELL VOLUME 93.6 Fl 86.3-98.9 N (test code = MCV) MEAN CELL HGB (test 30.6 pg 28.9-34.4 N code = MCH) MEAN CELL HGB 32.7 G/DL 32.1-34.5 N CONCETRATION (test code = MCHC) RED CELL DISTRIBUTION 14.1 SD 11.5-14.5 N WIDTH (test code = RDW) PLATELET COUNT (test 83 K/mm3 150-450 L code = PLT) MEAN PLATELET VOLUME 10.00 fL 7.0-9.6 H (test code = MPV) NEUTROPHIL % (test 62.2 % 40-76 N code = NT%) IMMATURE GRANULOCYTE 0.3 % 0.0-5.0 N % (test code = IG%) LYMPHOCYTE % (test 15.1 % 20.5-51.1 L code = LY%) MONOCYTE % (test code 11.3 % 1.7-9.3 H = MO%) EOSINOPHIL % (test 10.8 % 0.0-6.0 H code = EO%) BASOPHIL % (test code 0.3 % 0.0-2.0 N = BA%) NUCLEATED RBC % (test 0.0 /100WBC% 0.0-1.0 N code = NRBC%) NEUTROPHIL # (test 2.1 K/mm3 1.8-7.6 N code = NT#) IMMATURE GRANULOCYTE 0.01 x10 3/uL 0.00-0.03 N # (test code = IG#) LYMPHOCYTE # (test 0.5 K/mm3 0.6-3.0 L code = LY#) MONOCYTE # (test code 0.4 K/mm3 0.2-1.5 N = MO#) EOSINOPHIL # (test 0.4 K/mm3 0.0-0.4 N code = EO#) BASOPHIL # (test code 0.0 K/mm3 0.0-0.2 N = BA#) NUCLEATED RBC # (test 0.0 K/mm3 0.00-0.01 N code = NRBC#) MANUAL DIFF REQUIRED NO DIFF/SCN CRITERIA SLIDE R GERTRUDISW (test code = MDIFF) CONSISTA NT WITH AUTO DIFFERENTI AL. CBC W/AUTO [id number] 14:49:00 Test Item Value Reference Range Interpretation Comments WHITE BLOOD CELL 3.4 K/mm3 3.5-11.0 L (test code = WBC) RED BLOOD CELL (test 2.35 M/mm3 4.70-6.10 L code = RBC) HEMOGLOBIN (test code 7.2 G/DL 12.3-15.9 L = HGB) HEMATOCRIT (test code 22.0 % 35.8-46.7 L = HCT) MEAN CELL VOLUME 93.6 Fl 86.3-98.9 N (test code = MCV) MEAN CELL HGB (test 30.6 pg 28.9-34.4 N code = MCH) MEAN CELL HGB 32.7 G/DL 32.1-34.5 N CONCETRATION (test code = MCHC) RED CELL DISTRIBUTION 14.1 SD 11.5-14.5 N WIDTH (test code = RDW) PLATELET COUNT (test 83 K/mm3 150-450 L code = PLT) MEAN PLATELET VOLUME 10.00 fL 7.0-9.6 H (test code = MPV) NEUTROPHIL % (test 62.2 % 40-76 N code = NT%) IMMATURE GRANULOCYTE 0.3 % 0.0-5.0 N % (test code = IG%) LYMPHOCYTE % (test 15.1 % 20.5-51.1 L code = LY%) MONOCYTE % (test code 11.3 % 1.7-9.3 H = MO%) EOSINOPHIL % (test 10.8 % 0.0-6.0 H code = EO%) BASOPHIL % (test code 0.3 % 0.0-2.0 N = BA%) NUCLEATED RBC % (test 0.0 /100WBC% 0.0-1.0 N code = NRBC%) NEUTROPHIL # (test 2.1 K/mm3 1.8-7.6 N code = NT#) IMMATURE GRANULOCYTE 0.01 x10 3/uL 0.00-0.03 N # (test code = IG#) LYMPHOCYTE # (test 0.5 K/mm3 0.6-3.0 L code = LY#) MONOCYTE # (test code 0.4 K/mm3 0.2-1.5 N = MO#) EOSINOPHIL # (test 0.4 K/mm3 0.0-0.4 N code = EO#) BASOPHIL # (test code 0.0 K/mm3 0.0-0.2 N = BA#) NUCLEATED RBC # (test 0.0 K/mm3 0.00-0.01 N code = NRBC#) MANUAL DIFF REQUIRED NO DIFF/SCN CRITERIA SLIDE R EVIEW (test code = MDIFF) CONSISTA NT WITH AUTO DIFFERENTI AL. RBC [id number] 14:49:00 Test Item Value Reference Range Interpretation Comments PLATELET ESTIMATE MARKEDLY DECREASED ADEQUATE PLT ESTIMATE (test code = THOUSAND 80-100,000 PLTEST) PLATELET MORPHOLOGY NORMAL (test code = PLTMORPH) CBC W/AUTO [id number] 14:49:00 Test Item Value Reference Range Interpretation Comments WHITE BLOOD CELL 3.4 K/mm3 3.5-11.0 L (test code = WBC) RED BLOOD CELL (test 2.35 M/mm3 4.70-6.10 L code = RBC) HEMOGLOBIN (test code 7.2 G/DL 12.3-15.9 L = HGB) HEMATOCRIT (test code 22.0 % 35.8-46.7 L = HCT) MEAN CELL VOLUME 93.6 Fl 86.3-98.9 N (test code = MCV) MEAN CELL HGB (test 30.6 pg 28.9-34.4 N code = MCH) MEAN CELL HGB 32.7 G/DL 32.1-34.5 N CONCETRATION (test code = MCHC) RED CELL DISTRIBUTION 14.1 SD 11.5-14.5 N WIDTH (test code = RDW) PLATELET COUNT (test 83 K/mm3 150-450 L code = PLT) MEAN PLATELET VOLUME 10.00 fL 7.0-9.6 H (test code = MPV) NEUTROPHIL % (test 62.2 % 40-76 N code = NT%) IMMATURE GRANULOCYTE 0.3 % 0.0-5.0 N % (test code = IG%) LYMPHOCYTE % (test 15.1 % 20.5-51.1 L code = LY%) MONOCYTE % (test code 11.3 % 1.7-9.3 H = MO%) EOSINOPHIL % (test 10.8 % 0.0-6.0 H code = EO%) BASOPHIL % (test code 0.3 % 0.0-2.0 N = BA%) NUCLEATED RBC % (test 0.0 /100WBC% 0.0-1.0 N code = NRBC%) NEUTROPHIL # (test 2.1 K/mm3 1.8-7.6 N code = NT#) IMMATURE GRANULOCYTE 0.01 x10 3/uL 0.00-0.03 N # (test code = IG#) LYMPHOCYTE # (test 0.5 K/mm3 0.6-3.0 L code = LY#) MONOCYTE # (test code 0.4 K/mm3 0.2-1.5 N = MO#) EOSINOPHIL # (test 0.4 K/mm3 0.0-0.4 N code = EO#) BASOPHIL # (test code 0.0 K/mm3 0.0-0.2 N = BA#) NUCLEATED RBC # (test 0.0 K/mm3 0.00-0.01 N code = NRBC#) MANUAL DIFF REQUIRED NO DIFF/SCN CRITERIA SLIDE R EVIEW (test code = MDIFF) CONSISTA NT WITH AUTO DIFFERENTI AL. GLUCOSE BEDSIDE [id number] 08:45:00 Test Item Value Reference Range Interpretation Comments GLUCOSE BEDSIDE TESTING (test code 105 mg/dL 70-110 N = GLUBED) BASIC METABOLIC [id number] 07:34:00 Test Item Value Reference Range Interpretation Comments SODIUM (test code = NA) 137 mmol/L 134-147 N POTASSIUM (test code = K) 4.9 mmol/L 3.4-5.0 N CHLORIDE (test code = CL) 109 mmol/L 100-108 H CARBON DIOXIDE (test code = CO2) 25 mmol/L 21-32 N ANION GAP (test code = GAP) 3.0 GAP calc 4.0-15.0 L GLUCOSE (test code = GLU) 109 MG/DL 70-110 N BLOOD UREA NITROGEN (test code = 42 MG/DL 7-18 H BUN) GLOMERULAR FILTRATION RATE (test 37 estGFR >60 L code = GFR) CREATININE (test code = CREAT) 1.9 MG/DL 0.8-1.3 H CALCIUM (test code = CA) 8.1 MG/DL 8.5-10.1 L PROTHROMBIN [id number] 07:15:00 Test Item Value Reference Range Interpretation Comments PT PATIENT (test code = PTP) 15.3 SECONDS 9.3-12.9 H INTERNATIONAL NORMAL RATIO 1.36 INR Unit 0.8-1.2 H (test code = INR) CBC W/AUTO [id number] 07:11:00 Test Item Value Reference Range Interpretation Comments WHITE BLOOD CELL (test code = WBC) 3.4 K/mm3 3.5-11.0 L RED BLOOD CELL (test code = RBC) 2.35 M/mm3 4.70-6.10 L HEMOGLOBIN (test code = HGB) 7.2 G/DL 12.3-15.9 L HEMATOCRIT (test code = HCT) 22.0 % 35.8-46.7 L MEAN CELL VOLUME (test code = MCV) 93.6 Fl 86.3-98.9 N MEAN CELL HGB (test code = MCH) 30.6 pg 28.9-34.4 N MEAN CELL HGB CONCETRATION (test 32.7 G/DL 32.1-34.5 N code = MCHC) RED CELL DISTRIBUTION WIDTH (test SD 11.5-14.5 N code = RDW) PLATELET COUNT (test code = PLT) 83 K/mm3 150-450 L MEAN PLATELET VOLUME (test code = fL 7.0-9.6 H MPV) NEUTROPHIL % (test code = NT%) % 40-76 N IMMATURE GRANULOCYTE % (test code % 0.0-5.0 N = IG%) LYMPHOCYTE % (test code = LY%) % 20.5-51.1 L MONOCYTE % (test code = MO%) % 1.7-9.3 H EOSINOPHIL % (test code = EO%) % 0.0-6.0 H BASOPHIL % (test code = BA%) % 0.0-2.0 N NUCLEATED RBC % (test code = /100WBC% 0.0-1.0 N NRBC%) NEUTROPHIL # (test code = NT#) K/mm3 1.8-7.6 N IMMATURE GRANULOCYTE # (test code x10 3/uL 0.00-0.03 N = IG#) LYMPHOCYTE # (test code = LY#) K/mm3 0.6-3.0 L MONOCYTE # (test code = MO#) K/mm3 0.2-1.5 N EOSINOPHIL # (test code = EO#) K/mm3 0.0-0.4 N BASOPHIL # (test code = BA#) K/mm3 0.0-0.2 N NUCLEATED RBC # (test code = K/mm3 0.00-0.01 N NRBC#) MANUAL DIFF REQUIRED (test code = DIFF/SCN CRITERIA MDIFF) GLUCOSE BEDSIDE [id number] 20:23:00 Test Item Value Reference Range Interpretation Comments GLUCOSE BEDSIDE TESTING (test code 182 mg/dL 70-110 H = GLUBED) GLUCOSE BEDSIDE [id number] 18:19:00 Test Item Value Reference Range Interpretation Comments GLUCOSE BEDSIDE TESTING (test code 176 mg/dL 70-110 H = GLUBED) GLUCOSE BEDSIDE [id number] 12:13:00 Test Item Value Reference Range Interpretation Comments GLUCOSE BEDSIDE TESTING (test code 105 mg/dL 70-110 N = GLUBED) CBC W/AUTO [id number] 11:08:00 Test Item Value Reference Range Interpretation Comments WHITE BLOOD CELL (test code = 3.6 K/mm3 3.5-11.0 N WBC) RED BLOOD CELL (test code = RBC) 2.62 M/mm3 4.70-6.10 L HEMOGLOBIN (test code = HGB) 8.0 G/DL 12.3-15.9 L HEMATOCRIT (test code = HCT) 25.0 % 35.8-46.7 L MEAN CELL VOLUME (test code = 95.4 Fl 86.3-98.9 N MCV) MEAN CELL HGB (test code = MCH) 30.5 pg 28.9-34.4 N MEAN CELL HGB CONCETRATION (test 32.0 G/DL 32.1-34.5 L code = MCHC) RED CELL DISTRIBUTION WIDTH 14.2 SD 11.5-14.5 N (test code = RDW) PLATELET COUNT (test code = PLT) 87 K/mm3 150-450 L MEAN PLATELET VOLUME (test code 10.60 fL 7.0-9.6 H = MPV) MANUAL DIFF REQUIRED (test code YES DIFF/SCN CRITERIA = MDIFF) WBC [id number] 11:08:00 Test Item Value Reference Range Interpretation Comments SEGMENTED 70 % 40-75 N NEUTROPHILS (test code = SEG) LYMPHOCYTE (test 23 % 12.6-43.5 N code = LYMPH) MONOCYTE (test code 2 % 4.2-12.7 L = MON) EOSINOPHIL (test 5 % 0.0-5.2 N code = EOS) PLATELET ESTIMATE DECREASED THOUSAND ADEQUATE 96,0 00-120,000/u (test code = PLTEST) L PLATELET MORPHOLOGY NORMAL (test code = PLTMORPH) CBC W/AUTO [id number] 11:07:00 Test Item Value Reference Range Interpretation Comments WHITE BLOOD CELL (test code = 3.6 K/mm3 3.5-11.0 N WBC) RED BLOOD CELL (test code = RBC) 2.62 M/mm3 4.70-6.10 L HEMOGLOBIN (test code = HGB) 8.0 G/DL 12.3-15.9 L HEMATOCRIT (test code = HCT) 25.0 % 35.8-46.7 L MEAN CELL VOLUME (test code = 95.4 Fl 86.3-98.9 N MCV) MEAN CELL HGB (test code = MCH) 30.5 pg 28.9-34.4 N MEAN CELL HGB CONCETRATION (test 32.0 G/DL 32.1-34.5 L code = MCHC) RED CELL DISTRIBUTION WIDTH 14.2 SD 11.5-14.5 N (test code = RDW) PLATELET COUNT (test code = PLT) 87 K/mm3 150-450 L MEAN PLATELET VOLUME (test code 10.60 fL 7.0-9.6 H = MPV) MANUAL DIFF REQUIRED (test code YES DIFF/SCN CRITERIA = MDIFF) WBC [id number] 11:07:00 Test Item Value Reference Range Interpretation Comments SEGMENTED NEUTROPHILS (test code = SEG) % 40-75 LYMPHOCYTE (test code = LYMPH) % 12.6-43.5 CBC W/AUTO [id number] 11:07:00 Test Item Value Reference Range Interpretation Comments WHITE BLOOD CELL (test code = 3.6 K/mm3 3.5-11.0 N WBC) RED BLOOD CELL (test code = RBC) 2.62 M/mm3 4.70-6.10 L HEMOGLOBIN (test code = HGB) 8.0 G/DL 12.3-15.9 L HEMATOCRIT (test code = HCT) 25.0 % 35.8-46.7 L MEAN CELL VOLUME (test code = 95.4 Fl 86.3-98.9 N MCV) MEAN CELL HGB (test code = MCH) 30.5 pg 28.9-34.4 N MEAN CELL HGB CONCETRATION (test 32.0 G/DL 32.1-34.5 L code = MCHC) RED CELL DISTRIBUTION WIDTH 14.2 SD 11.5-14.5 N (test code = RDW) PLATELET COUNT (test code = PLT) 87 K/mm3 150-450 L MEAN PLATELET VOLUME (test code 10.60 fL 7.0-9.6 H = MPV) MANUAL DIFF REQUIRED (test code YES DIFF/SCN CRITERIA = MDIFF) WBC [id number] 11:07:00 Test Item Value Reference Range Interpretation Comments SEGMENTED NEUTROPHILS (test code = SEG) % 40-75 LYMPHOCYTE (test code = LYMPH) % 12.6-43.5 CBC W/AUTO [id number] 11:07:00 Test Item Value Reference Range Interpretation Comments WHITE BLOOD CELL (test code = 3.6 K/mm3 3.5-11.0 N WBC) RED BLOOD CELL (test code = RBC) 2.62 M/mm3 4.70-6.10 L HEMOGLOBIN (test code = HGB) 8.0 G/DL 12.3-15.9 L HEMATOCRIT (test code = HCT) 25.0 % 35.8-46.7 L MEAN CELL VOLUME (test code = 95.4 Fl 86.3-98.9 N MCV) MEAN CELL HGB (test code = MCH) 30.5 pg 28.9-34.4 N MEAN CELL HGB CONCETRATION (test 32.0 G/DL 32.1-34.5 L code = MCHC) RED CELL DISTRIBUTION WIDTH 14.2 SD 11.5-14.5 N (test code = RDW) PLATELET COUNT (test code = PLT) 87 K/mm3 150-450 L MEAN PLATELET VOLUME (test code 10.60 fL 7.0-9.6 H = MPV) MANUAL DIFF REQUIRED (test code YES DIFF/SCN CRITERIA = MDIFF) WBC [id number] 11:07:00 Test Item Value Reference Range Interpretation Comments SEGMENTED NEUTROPHILS (test code = SEG) % 40-75 LYMPHOCYTE (test code = LYMPH) % 12.6-43.5 BASIC METABOLIC [id number] 09:08:00 Test Item Value Reference Range Interpretation Comments SODIUM (test code = NA) 141 mmol/L 134-147 N POTASSIUM (test code = K) 5.0 mmol/L 3.4-5.0 N CHLORIDE (test code = CL) 112 mmol/L 100-108 H CARBON DIOXIDE (test code = CO2) 23 mmol/L 21-32 N ANION GAP (test code = GAP) 6.0 GAP calc 4.0-15.0 N GLUCOSE (test code = GLU) 94 MG/DL 70-110 N BLOOD UREA NITROGEN (test code = 43 MG/DL 7-18 H BUN) GLOMERULAR FILTRATION RATE (test 37 estGFR >60 L code = GFR) CREATININE (test code = CREAT) 1.9 MG/DL 0.8-1.3 H CALCIUM (test code = CA) 8.3 MG/DL 8.5-10.1 L CBC W/AUTO [id number] 08:47:00 Test Item Value Reference Range Interpretation Comments WHITE BLOOD CELL (test code = WBC) 3.6 K/mm3 3.5-11.0 N RED BLOOD CELL (test code = RBC) 2.62 M/mm3 4.70-6.10 L HEMOGLOBIN (test code = HGB) 8.0 G/DL 12.3-15.9 L HEMATOCRIT (test code = HCT) 25.0 % 35.8-46.7 L MEAN CELL VOLUME (test code = MCV) 95.4 Fl 86.3-98.9 N MEAN CELL HGB (test code = MCH) 30.5 pg 28.9-34.4 N MEAN CELL HGB CONCETRATION (test 32.0 G/DL 32.1-34.5 L code = MCHC) RED CELL DISTRIBUTION WIDTH (test SD 11.5-14.5 N code = RDW) PLATELET COUNT (test code = PLT) 87 K/mm3 150-450 L MEAN PLATELET VOLUME (test code = fL 7.0-9.6 H MPV) NEUTROPHIL % (test code = NT%) % 40-76 N IMMATURE GRANULOCYTE % (test code % 0.0-5.0 N = IG%) LYMPHOCYTE % (test code = LY%) % 20.5-51.1 L MONOCYTE % (test code = MO%) % 1.7-9.3 H EOSINOPHIL % (test code = EO%) % 0.0-6.0 H BASOPHIL % (test code = BA%) % 0.0-2.0 N NUCLEATED RBC % (test code = /100WBC% 0.0-1.0 N NRBC%) NEUTROPHIL # (test code = NT#) K/mm3 1.8-7.6 N IMMATURE GRANULOCYTE # (test code x10 3/uL 0.00-0.03 N = IG#) LYMPHOCYTE # (test code = LY#) K/mm3 0.6-3.0 N MONOCYTE # (test code = MO#) K/mm3 0.2-1.5 N EOSINOPHIL # (test code = EO#) K/mm3 0.0-0.4 N BASOPHIL # (test code = BA#) K/mm3 0.0-0.2 N NUCLEATED RBC # (test code = K/mm3 0.00-0.01 N NRBC#) MANUAL DIFF REQUIRED (test code = DIFF/SCN CRITERIA MDIFF) GLUCOSE BEDSIDE [id number] 08:30:00 Test Item Value Reference Range Interpretation Comments GLUCOSE BEDSIDE TESTING (test code = 90 mg/dL 70-110 N GLUBED) PROTHROMBIN [id number] 06:56:00 Test Item Value Reference Range Interpretation Comments PT PATIENT (test code = PTP) 19.6 SECONDS 9.3-12.9 H INTERNATIONAL NORMAL RATIO 1.73 INR Unit 0.8-1.2 H (test code = INR) GLUCOSE BEDSIDE [id number] 20:01:00 Test Item Value Reference Range Interpretation Comments GLUCOSE BEDSIDE TESTING (test code 151 mg/dL 70-110 H = GLUBED) PROTHROMBIN [id number] 17:35:00 Test Item Value Reference Range Interpretation Comments PT PATIENT (test code = PTP) 25.8 SECONDS 9.3-12.9 H INTERNATIONAL NORMAL RATIO 2.27 INR Unit 0.8-1.2 H (test code = INR) GLUCOSE BEDSIDE [id number] 17:16:00 Test Item Value Reference Range Interpretation Comments GLUCOSE BEDSIDE TESTING (test code 139 mg/dL 70-110 H = GLUBED) GLUCOSE BEDSIDE [id number] 13:07:00 Test Item Value Reference Range Interpretation Comments GLUCOSE BEDSIDE TESTING (test code 141 mg/dL 70-110 H = GLUBED) GLUCOSE BEDSIDE [id number] 08:22:00 Test Item Value Reference Range Interpretation Comments GLUCOSE BEDSIDE TESTING (test code = 70 mg/dL 70-110 N GLUBED) CBC W/AUTO [id number] 07:08:00 Test Item Value Reference Range Interpretation Comments WHITE BLOOD CELL 4.2 K/mm3 3.5-11.0 N (test code = WBC) RED BLOOD CELL (test 2.34 M/mm3 4.70-6.10 L code = RBC) HEMOGLOBIN (test code 7.2 G/DL 12.3-15.9 L = HGB) HEMATOCRIT (test code 22.2 % 35.8-46.7 L = HCT) MEAN CELL VOLUME 94.9 Fl 86.3-98.9 N (test code = MCV) MEAN CELL HGB (test 30.8 pg 28.9-34.4 N code = MCH) MEAN CELL HGB 32.4 G/DL 32.1-34.5 N CONCETRATION (test code = MCHC) RED CELL DISTRIBUTION 14.2 SD 11.5-14.5 N WIDTH (test code = RDW) PLATELET COUNT (test 89 K/mm3 150-450 L code = PLT) MEAN PLATELET VOLUME 10.90 fL 7.0-9.6 H (test code = MPV) NEUTROPHIL % (test 66.6 % 40-76 N code = NT%) IMMATURE GRANULOCYTE 0.2 % 0.0-5.0 N % (test code = IG%) LYMPHOCYTE % (test 13.5 % 20.5-51.1 L code = LY%) MONOCYTE % (test code 9.7 % 1.7-9.3 H = MO%) EOSINOPHIL % (test 9.5 % 0.0-6.0 H code = EO%) BASOPHIL % (test code 0.5 % 0.0-2.0 N = BA%) NUCLEATED RBC % (test 0.0 /100WBC% 0.0-1.0 N code = NRBC%) NEUTROPHIL # (test 2.8 K/mm3 1.8-7.6 N code = NT#) IMMATURE GRANULOCYTE 0.01 x10 3/uL 0.00-0.03 N # (test code = IG#) LYMPHOCYTE # (test 0.6 K/mm3 0.6-3.0 N code = LY#) MONOCYTE # (test code 0.4 K/mm3 0.2-1.5 N = MO#) EOSINOPHIL # (test 0.4 K/mm3 0.0-0.4 N code = EO#) BASOPHIL # (test code 0.0 K/mm3 0.0-0.2 N = BA#) NUCLEATED RBC # (test 0.0 K/mm3 0.00-0.01 N code = NRBC#) MANUAL DIFF REQUIRED NO DIFF/SCN CRITERIA SLIDE R GERTRUDISW (test code = MDIFF) CONSISTA NT WITH AUTO DIFFERENTI AL. CBC W/AUTO [id number] 07:08:00 Test Item Value Reference Range Interpretation Comments WHITE BLOOD CELL 4.2 K/mm3 3.5-11.0 N (test code = WBC) RED BLOOD CELL (test 2.34 M/mm3 4.70-6.10 L code = RBC) HEMOGLOBIN (test code 7.2 G/DL 12.3-15.9 L = HGB) HEMATOCRIT (test code 22.2 % 35.8-46.7 L = HCT) MEAN CELL VOLUME 94.9 Fl 86.3-98.9 N (test code = MCV) MEAN CELL HGB (test 30.8 pg 28.9-34.4 N code = MCH) MEAN CELL HGB 32.4 G/DL 32.1-34.5 N CONCETRATION (test code = MCHC) RED CELL DISTRIBUTION 14.2 SD 11.5-14.5 N WIDTH (test code = RDW) PLATELET COUNT (test 89 K/mm3 150-450 L code = PLT) MEAN PLATELET VOLUME 10.90 fL 7.0-9.6 H (test code = MPV) NEUTROPHIL % (test 66.6 % 40-76 N code = NT%) IMMATURE GRANULOCYTE 0.2 % 0.0-5.0 N % (test code = IG%) LYMPHOCYTE % (test 13.5 % 20.5-51.1 L code = LY%) MONOCYTE % (test code 9.7 % 1.7-9.3 H = MO%) EOSINOPHIL % (test 9.5 % 0.0-6.0 H code = EO%) BASOPHIL % (test code 0.5 % 0.0-2.0 N = BA%) NUCLEATED RBC % (test 0.0 /100WBC% 0.0-1.0 N code = NRBC%) NEUTROPHIL # (test 2.8 K/mm3 1.8-7.6 N code = NT#) IMMATURE GRANULOCYTE 0.01 x10 3/uL 0.00-0.03 N # (test code = IG#) LYMPHOCYTE # (test 0.6 K/mm3 0.6-3.0 N code = LY#) MONOCYTE # (test code 0.4 K/mm3 0.2-1.5 N = MO#) EOSINOPHIL # (test 0.4 K/mm3 0.0-0.4 N code = EO#) BASOPHIL # (test code 0.0 K/mm3 0.0-0.2 N = BA#) NUCLEATED RBC # (test 0.0 K/mm3 0.00-0.01 N code = NRBC#) MANUAL DIFF REQUIRED NO DIFF/SCN CRITERIA SLIDE R EVIEW (test code = MDIFF) CONSISTA NT WITH AUTO DIFFERENTI AL. RBC [id number] 07:08:00 Test Item Value Reference Range Interpretation Comments PLATELET ESTIMATE (test DECREASED THOUSAND ADEQUATE code = PLTEST) PLATELET MORPHOLOGY (test NORMAL code = PLTMORPH) CBC W/AUTO [id number] 07:08:00 Test Item Value Reference Range Interpretation Comments WHITE BLOOD CELL 4.2 K/mm3 3.5-11.0 N (test code = WBC) RED BLOOD CELL (test 2.34 M/mm3 4.70-6.10 L code = RBC) HEMOGLOBIN (test code 7.2 G/DL 12.3-15.9 L = HGB) HEMATOCRIT (test code 22.2 % 35.8-46.7 L = HCT) MEAN CELL VOLUME 94.9 Fl 86.3-98.9 N (test code = MCV) MEAN CELL HGB (test 30.8 pg 28.9-34.4 N code = MCH) MEAN CELL HGB 32.4 G/DL 32.1-34.5 N CONCETRATION (test code = MCHC) RED CELL DISTRIBUTION 14.2 SD 11.5-14.5 N WIDTH (test code = RDW) PLATELET COUNT (test 89 K/mm3 150-450 L code = PLT) MEAN PLATELET VOLUME 10.90 fL 7.0-9.6 H (test code = MPV) NEUTROPHIL % (test 66.6 % 40-76 N code = NT%) IMMATURE GRANULOCYTE 0.2 % 0.0-5.0 N % (test code = IG%) LYMPHOCYTE % (test 13.5 % 20.5-51.1 L code = LY%) MONOCYTE % (test code 9.7 % 1.7-9.3 H = MO%) EOSINOPHIL % (test 9.5 % 0.0-6.0 H code = EO%) BASOPHIL % (test code 0.5 % 0.0-2.0 N = BA%) NUCLEATED RBC % (test 0.0 /100WBC% 0.0-1.0 N code = NRBC%) NEUTROPHIL # (test 2.8 K/mm3 1.8-7.6 N code = NT#) IMMATURE GRANULOCYTE 0.01 x10 3/uL 0.00-0.03 N # (test code = IG#) LYMPHOCYTE # (test 0.6 K/mm3 0.6-3.0 N code = LY#) MONOCYTE # (test code 0.4 K/mm3 0.2-1.5 N = MO#) EOSINOPHIL # (test 0.4 K/mm3 0.0-0.4 N code = EO#) BASOPHIL # (test code 0.0 K/mm3 0.0-0.2 N = BA#) NUCLEATED RBC # (test 0.0 K/mm3 0.00-0.01 N code = NRBC#) MANUAL DIFF REQUIRED NO DIFF/SCN CRITERIA SLIDE Saul MUSTAFA (test code = MDIFF) CONSISTA NT WITH AUTO DIFFERENTI AL. BASIC METABOLIC [id number] 06:21:00 Test Item Value Reference Range Interpretation Comments SODIUM (test code = NA) 144 mmol/L 134-147 N POTASSIUM (test code = K) 4.5 mmol/L 3.4-5.0 N CHLORIDE (test code = CL) 112 mmol/L 100-108 H CARBON DIOXIDE (test code = CO2) 25 mmol/L 21-32 N ANION GAP (test code = GAP) 7.0 GAP calc 4.0-15.0 N GLUCOSE (test code = GLU) 78 MG/DL 70-110 N BLOOD UREA NITROGEN (test code = 44 MG/DL 7-18 H BUN) GLOMERULAR FILTRATION RATE (test 35 estGFR >60 L code = GFR) CREATININE (test code = CREAT) 2.0 MG/DL 0.8-1.3 H CALCIUM (test code = CA) 8.0 MG/DL 8.5-10.1 L BASIC METABOLIC [id number] 06:16:00 Test Item Value Reference Range Interpretation Comments SODIUM (test code = NA) 144 mmol/L 134-147 N POTASSIUM (test code = K) 4.5 mmol/L 3.4-5.0 N CHLORIDE (test code = CL) 112 mmol/L 100-108 H CARBON DIOXIDE (test code = CO2) 25 mmol/L 21-32 N ANION GAP (test code = GAP) 7.0 GAP calc 4.0-15.0 N GLUCOSE (test code = GLU) 78 MG/DL 70-110 N BLOOD UREA NITROGEN (test code = 44 MG/DL 7-18 H BUN) GLOMERULAR FILTRATION RATE (test estGFR >60 code = GFR) CREATININE (test code = CREAT) MG/DL 0.8-1.3 CALCIUM (test code = CA) 8.0 MG/DL 8.5-10.1 L CBC W/AUTO [id number] 05:59:00 Test Item Value Reference Range Interpretation Comments WHITE BLOOD CELL (test code = WBC) 4.2 K/mm3 3.5-11.0 N RED BLOOD CELL (test code = RBC) 2.34 M/mm3 4.70-6.10 L HEMOGLOBIN (test code = HGB) 7.2 G/DL 12.3-15.9 L HEMATOCRIT (test code = HCT) 22.2 % 35.8-46.7 L MEAN CELL VOLUME (test code = MCV) 94.9 Fl 86.3-98.9 N MEAN CELL HGB (test code = MCH) 30.8 pg 28.9-34.4 N MEAN CELL HGB CONCETRATION (test 32.4 G/DL 32.1-34.5 N code = MCHC) RED CELL DISTRIBUTION WIDTH (test SD 11.5-14.5 N code = RDW) PLATELET COUNT (test code = PLT) 89 K/mm3 150-450 L MEAN PLATELET VOLUME (test code = fL 7.0-9.6 H MPV) NEUTROPHIL % (test code = NT%) % 40-76 N IMMATURE GRANULOCYTE % (test code % 0.0-5.0 N = IG%) LYMPHOCYTE % (test code = LY%) % 20.5-51.1 L MONOCYTE % (test code = MO%) % 1.7-9.3 H EOSINOPHIL % (test code = EO%) % 0.0-6.0 H BASOPHIL % (test code = BA%) % 0.0-2.0 N NUCLEATED RBC % (test code = /100WBC% 0.0-1.0 N NRBC%) NEUTROPHIL # (test code = NT#) K/mm3 1.8-7.6 N IMMATURE GRANULOCYTE # (test code x10 3/uL 0.00-0.03 N = IG#) LYMPHOCYTE # (test code = LY#) K/mm3 0.6-3.0 N MONOCYTE # (test code = MO#) K/mm3 0.2-1.5 N EOSINOPHIL # (test code = EO#) K/mm3 0.0-0.4 N BASOPHIL # (test code = BA#) K/mm3 0.0-0.2 N NUCLEATED RBC # (test code = K/mm3 0.00-0.01 N NRBC#) MANUAL DIFF REQUIRED (test code = DIFF/SCN CRITERIA MDIFF) GLUCOSE BEDSIDE [id number] 20:38:00 Test Item Value Reference Range Interpretation Comments GLUCOSE BEDSIDE TESTING (test code 167 mg/dL 70-110 H = GLUBED) GLUCOSE BEDSIDE [id number] 16:43:00 Test Item Value Reference Range Interpretation Comments GLUCOSE BEDSIDE TESTING (test code 184 mg/dL 70-110 H = GLUBED) UA RFLX MICR CULT IF [id number] 11:34:00 Test Item Value Reference Range Interpretation Comments UA COLOR (test code = YELLOW discript YEL/STRAW COLU) UA APPEARANCE (test code HAZY discript CLEAR A = APPU) UA GLUCOSE DIPSTICK (test NEGATIVE mg/dL NEG code = DGLUU) UA BILIRUBIN DIPSTICK NEGATIVE mg/dL NEG (test code = BILU) UA KETONE DIPSTICK (test NEGATIVE mg/dL NEG code = KETU) UA SPECIFIC GRAVITY (test 1.025 SG 1.005-1.030 code = SGU) UA BLOOD DIPSTICK (test 3+ mg/DL NEG A code = HELEN) UA PH DIPSTICK (test code 5.5 pH UNITS 5.0-7.0 = PERNELL) UA PROTEIN DIPSTICK (test 3+ mg/dL NEG A code = PROU) UA UROBILINIOGEN DIPSTICK 0.2 mg/dL <2.0 (test code = URO) UA NITRITE DIPSTICK (test NEGATIVE SCREEN NEG code = MISTY) UA LEUKOCYTE ESTERASE 2+ Leuk/mcL NEGATIVE A DIPSTICK (test code = LEUU) UA WBC (test code = WBCU) 30-40 #WBC/HPF 0-3 UA RBC (test code = RBCU) 1-3 #RBC/HPF 0-3 UA BACTERIA (test code = TRACE /HPF NONE-TRACE BACU) UA SQUAMOUS CELLS (test TRACE /HPF NONE code = SQU) UA MUCUS (test code = TRACE /LPF NONE SEEN MUCU) UA CULTURE NEEDED? (test YES,WBC>10 & EPI<25 Culture CHK code = UACULT) Criteria Indication for culture: RiskForSepsis-no oth srcLACTIC [id number] 11:34:00 Test Item Value Reference Range Interpretation Comments LACTIC ACID (test code = LACT) 1.5 mmol/L 0.4-2.0 N UA RFLX MICR CULT IF [id number] 11:18:00 Test Item Value Reference Range Interpretation Comments UA COLOR (test code = COLU) YELLOW discript YEL/STRAW UA APPEARANCE (test code = HAZY discript CLEAR A APPU) UA GLUCOSE DIPSTICK (test NEGATIVE mg/dL NEG code = DGLUU) UA BILIRUBIN DIPSTICK (test NEGATIVE mg/dL NEG code = BILU) UA KETONE DIPSTICK (test code NEGATIVE mg/dL NEG = KETU) UA SPECIFIC GRAVITY (test 1.025 SG 1.005-1.030 code = SGU) UA BLOOD DIPSTICK (test code 3+ mg/DL NEG A = HELEN) UA PH DIPSTICK (test code = 5.5 pH UNITS 5.0-7.0 PERNELL) UA PROTEIN DIPSTICK (test 3+ mg/dL NEG A code = PROU) UA UROBILINIOGEN DIPSTICK 0.2 mg/dL <2.0 (test code = URO) UA NITRITE DIPSTICK (test NEGATIVE SCREEN NEG code = MISTY) UA LEUKOCYTE ESTERASE 2+ Leuk/mcL NEGATIVE A DIPSTICK (test code = LEUU) UA CULTURE NEEDED? (test code Criteria Culture CHK = UACULT) Indication for culture: [facility] [id number] 10:58:00 Test Item Value Reference Range Interpretation Comments WHITE BLOOD CELL 4.7 K/mm3 3.5-11.0 N (test code = WBC) RED BLOOD CELL (test 2.90 M/mm3 4.70-6.10 L code = RBC) HEMOGLOBIN (test code 8.8 G/DL 12.3-15.9 L = HGB) HEMATOCRIT (test code 27.0 % 35.8-46.7 L = HCT) MEAN CELL VOLUME 93.1 Fl 86.3-98.9 N (test code = MCV) MEAN CELL HGB (test 30.3 pg 28.9-34.4 N code = MCH) MEAN CELL HGB 32.6 G/DL 32.1-34.5 N CONCETRATION (test code = MCHC) RED CELL DISTRIBUTION 14.1 SD 11.5-14.5 N WIDTH (test code = RDW) PLATELET COUNT (test 126 K/mm3 150-450 L code = PLT) MEAN PLATELET VOLUME 10.50 fL 7.0-9.6 H (test code = MPV) NEUTROPHIL % (test 68.7 % 40-76 N code = NT%) IMMATURE GRANULOCYTE 0.2 % 0.0-5.0 N % (test code = IG%) LYMPHOCYTE % (test 11.8 % 20.5-51.1 L code = LY%) MONOCYTE % (test code 6.6 % 1.7-9.3 N = MO%) EOSINOPHIL % (test 12.1 % 0.0-6.0 H code = EO%) BASOPHIL % (test code 0.6 % 0.0-2.0 N = BA%) NUCLEATED RBC % (test 0.0 /100WBC% 0.0-1.0 N code = NRBC%) NEUTROPHIL # (test 3.3 K/mm3 1.8-7.6 N code = NT#) IMMATURE GRANULOCYTE 0.01 x10 3/uL 0.00-0.03 N # (test code = IG#) LYMPHOCYTE # (test 0.6 K/mm3 0.6-3.0 N code = LY#) MONOCYTE # (test code 0.3 K/mm3 0.2-1.5 N = MO#) EOSINOPHIL # (test 0.6 K/mm3 0.0-0.4 H code = EO#) BASOPHIL # (test code 0.0 K/mm3 0.0-0.2 N = BA#) NUCLEATED RBC # (test 0.0 K/mm3 0.00-0.01 N code = NRBC#) MANUAL DIFF REQUIRED NO DIFF/SCN CRITERIA SLIDE Saul MUSTAFA (test code = MDIFF) CONSISTA NT WITH AUTO DIFFERENTI AL. LACTIC [id number] 10:06:00 Test Item Value Reference Range Interpretation Comments LACTIC ACID (test code = LACT) 2.5 mmol/L 0.4-2.0 H Coronavirus 2019 nCoV [id number] 10:05:00 Test Item Value Reference Range Interpretation Comments Coronavirus 2019 nCoV Negative Negative Per ma nufacturer, Bedside (test code = negativ e results should [id number]) be treated aspresumptive a nd, if inconsistent wi th clinical signs andsymptoms or necessary for p atient management, ida uld betested with a n alternative mol ecular assay. Negative resultsdo not p reclude SARS-CoV-2 infe ction and should not be usedas the sole basis for patient man agement decisions. Nega tive results should be considered in t he context of apat ient's recent exposure s, history, presen ce of clinicalsigns a nd symptoms consis tent with COVID-19. - XR CHEST 1 [id number] 10:04:00 [facility] 1950 Sex: M Name: MI MCKENNA [facility] : 1950 Age/S: 70 / M [id number] [place] Unit #: [id number] Loc: [place] [address] Phys: Royce Green MD Acct: [id number] Dis Date: Status: REG ER PHONE #: [phone] Exam Date: 04/22/2021 0940 FAX #: Reason: Code Sepsis EXAMS: CPT: [id number] XR CHEST 1 V 26660 Fluoro Time: DAP (Gy m2): Air Kerma (mGy): EXAM: - XR CHEST 1 V 04/22/2021 9:15 AM Location code:C3 HISTORY: 70 years-old Male with Code Sepsis TECHNIQUE: Frontal portable view of the chest COMPARISON: Chest x-ray performed on 03/20/2021 FINDINGS: Lines and tubes: None. Cardiomediastinal: The cardiomediastinal silhouette is unchanged. Lungs and pleura: The lungs are clear. No pleural effusion. No pneumothorax. Musculoskeletal: No significant skeletal abnormality. IMPRESSION:No radiographic evidence of a focal infiltrate. at 1004 Reported and signed by: Cesar Sneed M.D. CC: Royce Green MD PAGE 1 Signed Report Name: MI MCKENNA [facility] : 1950 Age/S: 70 / M [id number] [place] Unit #: [id number] Loc: [place] [address] Phys: Royce Green MD Acct: [id number] Dis Date: Status: REG ER PHONE #: [phone] Exam Date: 04/22/2021 0940 FAX #: Reason: Code Sepsis EXAMS: CPT: [id number] XR CHEST 1 V 39556 Fluoro Time: DAP (Gy m2): Air Kerma (mGy): <Continued> Technologist: Osbaldo Barbour, RT(R)(CT) Trnscb Date/Time: 04/22/2021 (1004) [email or web address] Orig Print D/T: S: 04/22/2021 (1007) PAGE 2 Signed ReportBASIC METABOLIC [id number] 09:55:00 Test Item Value Reference Range Interpretation Comments SODIUM (test code = NA) 140 mmol/L 134-147 N POTASSIUM (test code = K) 5.2 mmol/L 3.4-5.0 H CHLORIDE (test code = CL) 111 mmol/L 100-108 H CARBON DIOXIDE (test code = CO2) 21 mmol/L 21-32 N ANION GAP (test code = GAP) 8.0 GAP calc 4.0-15.0 N GLUCOSE (test code = GLU) 116 MG/DL 70-110 H BLOOD UREA NITROGEN (test code = 47 MG/DL 7-18 H BUN) GLOMERULAR FILTRATION RATE (test 32 estGFR >60 L code = GFR) CREATININE (test code = CREAT) 2.2 MG/DL 0.8-1.3 H CALCIUM (test code = CA) 8.8 MG/DL 8.5-10.1 N Completed by Nursing: NOHEPATIC FUNCTION [id number] 09:55:00 Test Item Value Reference Range Interpretation Comments TOTAL PROTEIN (test code = PROT) 6.7 G/DL 6.4-8.2 N ALBUMIN (test code = ALB) 2.8 G/DL 3.4-5.0 L BILIRUBIN TOTAL (test code = BILT) 0.30 MG/DL 0.2-1.2 N BILIRUBIN DIRECT (test code = 0.10 MG/DL 0.00-0.30 N BILD) BILIRUBIN INDIRECT (test code = 0.20 MG/DL 0.2-1.2 N BILIND) SGOT/AST (test code = AST) 16 Unit/L 15-37 N SGPT/ALT (test code = ALT) 22 Unit/L 12-78 N ALKALINE PHOSPHATASE TOTAL (test 92 Unit/L 50-136 N code = ALKP) Completed by Nursing: [id number] 09:55:00 Test Item Value Reference Range Interpretation Comments LIPASE (test code = LIP) 242 Unit/L 114-286 N Completed by Nursing: NONT PRO-BRAIN NATRIURETIC [id number] 09:55:00 Test Item Value Reference Range Interpretation Comments NT PRO-BRAIN NATRIURETIC PEPTI 1104 PG/ML 0-100 H (test code = PROBNP) Completed by Nursing: [id number] 09:55:00 Test Item Value Reference Range Interpretation Comments TROPONIN-I (test < 0.015 NG/ML 0.000-0.045 N Negative: </= 0.045 code = TROPI) Positive: >/= 0.046 Correlation wit h serial results, other cardiac markers, and cl inical findings is nec essary to determine the c linical significance of this result. Quantit ative results using d ifferent methodologies s hould not be compared to one another as nume rical results may briseida yby method. Completed by Nursing: NOPROTHROMBIN [id number] 09:36:00 Test Item Value Reference Range Interpretation Comments PT PATIENT (test code = PTP) 19.7 SECONDS 9.3-12.9 H INTERNATIONAL NORMAL RATIO 1.74 INR Unit 0.8-1.2 H (test code = INR) THROMBOPLASTIN TIME [id number] 09:36:00 Test Item Value Reference Range Interpretation Comments THROMBOPLASTIN TIME PARTIAL 57.4 SECONDS 26-35 H (test code = PTT) CBC W/AUTO [id number] 09:29:00 Test Item Value Reference Range Interpretation Comments WHITE BLOOD CELL (test code = WBC) 4.7 K/mm3 3.5-11.0 N RED BLOOD CELL (test code = RBC) 2.90 M/mm3 4.70-6.10 L HEMOGLOBIN (test code = HGB) 8.8 G/DL 12.3-15.9 L HEMATOCRIT (test code = HCT) 27.0 % 35.8-46.7 L MEAN CELL VOLUME (test code = MCV) 93.1 Fl 86.3-98.9 N MEAN CELL HGB (test code = MCH) 30.3 pg 28.9-34.4 N MEAN CELL HGB CONCETRATION (test 32.6 G/DL 32.1-34.5 N code = MCHC) RED CELL DISTRIBUTION WIDTH (test SD 11.5-14.5 N code = RDW) PLATELET COUNT (test code = PLT) 126 K/mm3 150-450 L MEAN PLATELET VOLUME (test code = fL 7.0-9.6 H MPV) NEUTROPHIL % (test code = NT%) % 40-76 N IMMATURE GRANULOCYTE % (test code % 0.0-5.0 N = IG%) LYMPHOCYTE % (test code = LY%) % 20.5-51.1 L MONOCYTE % (test code = MO%) % 1.7-9.3 N EOSINOPHIL % (test code = EO%) % 0.0-6.0 H BASOPHIL % (test code = BA%) % 0.0-2.0 N NUCLEATED RBC % (test code = /100WBC% 0.0-1.0 N NRBC%) NEUTROPHIL # (test code = NT#) K/mm3 1.8-7.6 N IMMATURE GRANULOCYTE # (test code x10 3/uL 0.00-0.03 N = IG#) LYMPHOCYTE # (test code = LY#) K/mm3 0.6-3.0 N MONOCYTE # (test code = MO#) K/mm3 0.2-1.5 N EOSINOPHIL # (test code = EO#) K/mm3 0.0-0.4 H BASOPHIL # (test code = BA#) K/mm3 0.0-0.2 N NUCLEATED RBC # (test code = K/mm3 0.00-0.01 N NRBC#) MANUAL DIFF REQUIRED (test code = DIFF/SCN CRITERIA MDIFF) GLUCOSE BEDSIDE [id number] 11:38:00 Test Item Value Reference Range Interpretation Comments GLUCOSE BEDSIDE TESTING (test code 130 mg/dL 70-110 H = GLUBED) CBC W/AUTO [id number] 10:26:00 Test Item Value Reference Range Interpretation Comments WHITE BLOOD CELL 5.6 K/mm3 3.5-11.0 N (test code = WBC) RED BLOOD CELL (test 2.89 M/mm3 4.70-6.10 L code = RBC) HEMOGLOBIN (test code 8.7 G/DL 12.3-15.9 L = HGB) HEMATOCRIT (test code 27.2 % 35.8-46.7 L = HCT) MEAN CELL VOLUME 94.1 Fl 86.3-98.9 N (test code = MCV) MEAN CELL HGB (test 30.1 pg 28.9-34.4 N code = MCH) MEAN CELL HGB 32.0 G/DL 32.1-34.5 L CONCETRATION (test code = MCHC) RED CELL DISTRIBUTION 13.7 SD 11.5-14.5 N WIDTH (test code = RDW) PLATELET COUNT (test 93 K/mm3 150-450 L code = PLT) MEAN PLATELET VOLUME 10.40 fL 7.0-9.6 H (test code = MPV) NEUTROPHIL % (test 68.9 % 40-76 N code = NT%) IMMATURE GRANULOCYTE 1.1 % 0.0-5.0 N % (test code = IG%) LYMPHOCYTE % (test 11.1 % 20.5-51.1 L code = LY%) MONOCYTE % (test code 8.2 % 1.7-9.3 N = MO%) EOSINOPHIL % (test 10.0 % 0.0-6.0 H code = EO%) BASOPHIL % (test code 0.7 % 0.0-2.0 N = BA%) NUCLEATED RBC % (test 0.0 /100WBC% 0.0-1.0 N code = NRBC%) NEUTROPHIL # (test 3.9 K/mm3 1.8-7.6 N code = NT#) IMMATURE GRANULOCYTE 0.06 x10 3/uL 0.00-0.03 H # (test code = IG#) LYMPHOCYTE # (test 0.6 K/mm3 0.6-3.0 N code = LY#) MONOCYTE # (test code 0.5 K/mm3 0.2-1.5 N = MO#) EOSINOPHIL # (test 0.6 K/mm3 0.0-0.4 H code = EO#) BASOPHIL # (test code 0.0 K/mm3 0.0-0.2 N = BA#) NUCLEATED RBC # (test 0.0 K/mm3 0.00-0.01 N code = NRBC#) MANUAL DIFF REQUIRED NO DIFF/SCN CRITERIA SLIDE R MOON (test code = MDIFF) CONSISTA NT WITH AUTO DIFFERENTI AL. RBC [id number] 10:26:00 Test Item Value Reference Range Interpretation Comments PLATELET ESTIMATE DECREASED THOUSAND ADEQUATE PLAT ELET COUNT (test code = REVIEWED AND PLTEST) VERIFIED. PLATELET MORPHOLOGY NORMAL (test code = PLTMORPH) CBC W/AUTO [id number] 10:22:00 Test Item Value Reference Range Interpretation Comments WHITE BLOOD CELL 5.6 K/mm3 3.5-11.0 N (test code = WBC) RED BLOOD CELL (test 2.89 M/mm3 4.70-6.10 L code = RBC) HEMOGLOBIN (test code 8.7 G/DL 12.3-15.9 L = HGB) HEMATOCRIT (test code 27.2 % 35.8-46.7 L = HCT) MEAN CELL VOLUME 94.1 Fl 86.3-98.9 N (test code = MCV) MEAN CELL HGB (test 30.1 pg 28.9-34.4 N code = MCH) MEAN CELL HGB 32.0 G/DL 32.1-34.5 L CONCETRATION (test code = MCHC) RED CELL DISTRIBUTION 13.7 SD 11.5-14.5 N WIDTH (test code = RDW) PLATELET COUNT (test 93 K/mm3 150-450 L code = PLT) MEAN PLATELET VOLUME 10.40 fL 7.0-9.6 H (test code = MPV) NEUTROPHIL % (test 68.9 % 40-76 N code = NT%) IMMATURE GRANULOCYTE 1.1 % 0.0-5.0 N % (test code = IG%) LYMPHOCYTE % (test 11.1 % 20.5-51.1 L code = LY%) MONOCYTE % (test code 8.2 % 1.7-9.3 N = MO%) EOSINOPHIL % (test 10.0 % 0.0-6.0 H code = EO%) BASOPHIL % (test code 0.7 % 0.0-2.0 N = BA%) NUCLEATED RBC % (test 0.0 /100WBC% 0.0-1.0 N code = NRBC%) NEUTROPHIL # (test 3.9 K/mm3 1.8-7.6 N code = NT#) IMMATURE GRANULOCYTE 0.06 x10 3/uL 0.00-0.03 H # (test code = IG#) LYMPHOCYTE # (test 0.6 K/mm3 0.6-3.0 N code = LY#) MONOCYTE # (test code 0.5 K/mm3 0.2-1.5 N = MO#) EOSINOPHIL # (test 0.6 K/mm3 0.0-0.4 H code = EO#) BASOPHIL # (test code 0.0 K/mm3 0.0-0.2 N = BA#) NUCLEATED RBC # (test 0.0 K/mm3 0.00-0.01 N code = NRBC#) MANUAL DIFF REQUIRED NO DIFF/SCN CRITERIA SLIDE R GERTRUDISW (test code = MDIFF) CONSISTA NT WITH AUTO DIFFERENTI AL. CBC W/AUTO [id number] 10:21:00 Test Item Value Reference Range Interpretation Comments WHITE BLOOD CELL 5.6 K/mm3 3.5-11.0 N (test code = WBC) RED BLOOD CELL (test 2.89 M/mm3 4.70-6.10 L code = RBC) HEMOGLOBIN (test code 8.7 G/DL 12.3-15.9 L = HGB) HEMATOCRIT (test code 27.2 % 35.8-46.7 L = HCT) MEAN CELL VOLUME 94.1 Fl 86.3-98.9 N (test code = MCV) MEAN CELL HGB (test 30.1 pg 28.9-34.4 N code = MCH) MEAN CELL HGB 32.0 G/DL 32.1-34.5 L CONCETRATION (test code = MCHC) RED CELL DISTRIBUTION 13.7 SD 11.5-14.5 N WIDTH (test code = RDW) PLATELET COUNT (test 93 K/mm3 150-450 L code = PLT) MEAN PLATELET VOLUME 10.40 fL 7.0-9.6 H (test code = MPV) NEUTROPHIL % (test 68.9 % 40-76 N code = NT%) IMMATURE GRANULOCYTE 1.1 % 0.0-5.0 N % (test code = IG%) LYMPHOCYTE % (test 11.1 % 20.5-51.1 L code = LY%) MONOCYTE % (test code 8.2 % 1.7-9.3 N = MO%) EOSINOPHIL % (test 10.0 % 0.0-6.0 H code = EO%) BASOPHIL % (test code 0.7 % 0.0-2.0 N = BA%) NUCLEATED RBC % (test 0.0 /100WBC% 0.0-1.0 N code = NRBC%) NEUTROPHIL # (test 3.9 K/mm3 1.8-7.6 N code = NT#) IMMATURE GRANULOCYTE 0.06 x10 3/uL 0.00-0.03 H # (test code = IG#) LYMPHOCYTE # (test 0.6 K/mm3 0.6-3.0 N code = LY#) MONOCYTE # (test code 0.5 K/mm3 0.2-1.5 N = MO#) EOSINOPHIL # (test 0.6 K/mm3 0.0-0.4 H code = EO#) BASOPHIL # (test code 0.0 K/mm3 0.0-0.2 N = BA#) NUCLEATED RBC # (test 0.0 K/mm3 0.00-0.01 N code = NRBC#) MANUAL DIFF REQUIRED NO DIFF/SCN CRITERIA SLIDE Saul MUSTAFA (test code = MDIFF) CONSISTA NT WITH AUTO DIFFERENTI AL. GLUCOSE BEDSIDE [id number] 09:46:00 Test Item Value Reference Range Interpretation Comments GLUCOSE BEDSIDE TESTING (test code 168 mg/dL 70-110 H = GLUBED) PROTHROMBIN [id number] 08:50:00 Test Item Value Reference Range Interpretation Comments PT PATIENT (test code = PTP) 24.3 SECONDS 9.3-12.9 H INTERNATIONAL NORMAL RATIO 2.14 INR Unit 0.8-1.2 H (test code = INR) BASIC METABOLIC [id number] 08:48:00 Test Item Value Reference Range Interpretation Comments SODIUM (test code = NA) 139 mmol/L 134-147 N POTASSIUM (test code = K) 4.6 mmol/L 3.4-5.0 N CHLORIDE (test code = CL) 108 mmol/L 100-108 N CARBON DIOXIDE (test code = CO2) 27 mmol/L 21-32 N ANION GAP (test code = GAP) 4.0 GAP calc 4.0-15.0 N GLUCOSE (test code = GLU) 104 MG/DL 70-110 N BLOOD UREA NITROGEN (test code = 43 MG/DL 7-18 H BUN) GLOMERULAR FILTRATION RATE (test 32 estGFR >60 L code = GFR) CREATININE (test code = CREAT) 2.2 MG/DL 0.8-1.3 H CALCIUM (test code = CA) 9.1 MG/DL 8.5-10.1 N CBC W/AUTO [id number] 08:37:00 Test Item Value Reference Range Interpretation Comments WHITE BLOOD CELL (test code = WBC) 5.6 K/mm3 3.5-11.0 N RED BLOOD CELL (test code = RBC) 2.89 M/mm3 4.70-6.10 L HEMOGLOBIN (test code = HGB) 8.7 G/DL 12.3-15.9 L HEMATOCRIT (test code = HCT) 27.2 % 35.8-46.7 L MEAN CELL VOLUME (test code = MCV) 94.1 Fl 86.3-98.9 N MEAN CELL HGB (test code = MCH) 30.1 pg 28.9-34.4 N MEAN CELL HGB CONCETRATION (test 32.0 G/DL 32.1-34.5 L code = MCHC) RED CELL DISTRIBUTION WIDTH (test SD 11.5-14.5 N code = RDW) PLATELET COUNT (test code = PLT) 93 K/mm3 150-450 L MEAN PLATELET VOLUME (test code = fL 7.0-9.6 H MPV) NEUTROPHIL % (test code = NT%) % 40-76 N IMMATURE GRANULOCYTE % (test code % 0.0-5.0 N = IG%) LYMPHOCYTE % (test code = LY%) % 20.5-51.1 L MONOCYTE % (test code = MO%) % 1.7-9.3 N EOSINOPHIL % (test code = EO%) % 0.0-6.0 H BASOPHIL % (test code = BA%) % 0.0-2.0 N NUCLEATED RBC % (test code = /100WBC% 0.0-1.0 N NRBC%) NEUTROPHIL # (test code = NT#) K/mm3 1.8-7.6 N IMMATURE GRANULOCYTE # (test code x10 3/uL 0.00-0.03 H = IG#) LYMPHOCYTE # (test code = LY#) K/mm3 0.6-3.0 N MONOCYTE # (test code = MO#) K/mm3 0.2-1.5 N EOSINOPHIL # (test code = EO#) K/mm3 0.0-0.4 H BASOPHIL # (test code = BA#) K/mm3 0.0-0.2 N NUCLEATED RBC # (test code = K/mm3 0.00-0.01 N NRBC#) MANUAL DIFF REQUIRED (test code = DIFF/SCN CRITERIA MDIFF) GLUCOSE BEDSIDE [id number] 20:36:00 Test Item Value Reference Range Interpretation Comments GLUCOSE BEDSIDE TESTING (test code 132 mg/dL 70-110 H = GLUBED) GLUCOSE BEDSIDE [id number] 17:01:00 Test Item Value Reference Range Interpretation Comments GLUCOSE BEDSIDE TESTING (test code 120 mg/dL 70-110 H = GLUBED) GLUCOSE BEDSIDE [id number] 16:37:00 Test Item Value Reference Range Interpretation Comments GLUCOSE BEDSIDE TESTING (test code 123 mg/dL 70-110 H = GLUBED) GLUCOSE BEDSIDE [id number] 07:57:00 Test Item Value Reference Range Interpretation Comments GLUCOSE BEDSIDE TESTING (test code = 92 mg/dL 70-110 N GLUBED) CBC W/AUTO [id number] 06:49:00 Test Item Value Reference Range Interpretation Comments WHITE BLOOD CELL 5.1 K/mm3 3.5-11.0 N (test code = WBC) RED BLOOD CELL (test 2.77 M/mm3 4.70-6.10 L code = RBC) HEMOGLOBIN (test code 8.4 G/DL 12.3-15.9 L = HGB) HEMATOCRIT (test code 25.9 % 35.8-46.7 L = HCT) MEAN CELL VOLUME 93.5 Fl 86.3-98.9 N (test code = MCV) MEAN CELL HGB (test 30.3 pg 28.9-34.4 N code = MCH) MEAN CELL HGB 32.4 G/DL 32.1-34.5 N CONCETRATION (test code = MCHC) RED CELL DISTRIBUTION 13.6 SD 11.5-14.5 N WIDTH (test code = RDW) PLATELET COUNT (test 90 K/mm3 150-450 L code = PLT) MEAN PLATELET VOLUME 10.40 fL 7.0-9.6 H (test code = MPV) NEUTROPHIL % (test 64.4 % 40-76 N code = NT%) IMMATURE GRANULOCYTE 1.8 % 0.0-5.0 N % (test code = IG%) LYMPHOCYTE % (test 12.1 % 20.5-51.1 L code = LY%) MONOCYTE % (test code 9.4 % 1.7-9.3 H = MO%) EOSINOPHIL % (test 11.7 % 0.0-6.0 H code = EO%) BASOPHIL % (test code 0.6 % 0.0-2.0 N = BA%) NUCLEATED RBC % (test 0.0 /100WBC% 0.0-1.0 N code = NRBC%) NEUTROPHIL # (test 3.3 K/mm3 1.8-7.6 N code = NT#) IMMATURE GRANULOCYTE 0.09 x10 3/uL 0.00-0.03 H # (test code = IG#) LYMPHOCYTE # (test 0.6 K/mm3 0.6-3.0 N code = LY#) MONOCYTE # (test code 0.5 K/mm3 0.2-1.5 N = MO#) EOSINOPHIL # (test 0.6 K/mm3 0.0-0.4 H code = EO#) BASOPHIL # (test code 0.0 K/mm3 0.0-0.2 N = BA#) NUCLEATED RBC # (test 0.0 K/mm3 0.00-0.01 N code = NRBC#) MANUAL DIFF REQUIRED NO DIFF/SCN CRITERIA SLIDE R JOSSELINECARRIEW (test code = MDIFF) CONSISTA NT WITH AUTO DIFFERENTI AL. RBC [id number] 06:49:00 Test Item Value Reference Range Interpretation Comments PLATELET ESTIMATE DECREASED THOUSAND ADEQUATE ROSHNI MATED (test code = PLATELET RANGE = PLTEST) 84,000 - 90,000 PLATELET MORPHOLOGY NORMAL (test code = PLTMORPH) CBC W/AUTO [id number] 06:48:00 Test Item Value Reference Range Interpretation Comments WHITE BLOOD CELL 5.1 K/mm3 3.5-11.0 N (test code = WBC) RED BLOOD CELL (test 2.77 M/mm3 4.70-6.10 L code = RBC) HEMOGLOBIN (test code 8.4 G/DL 12.3-15.9 L = HGB) HEMATOCRIT (test code 25.9 % 35.8-46.7 L = HCT) MEAN CELL VOLUME 93.5 Fl 86.3-98.9 N (test code = MCV) MEAN CELL HGB (test 30.3 pg 28.9-34.4 N code = MCH) MEAN CELL HGB 32.4 G/DL 32.1-34.5 N CONCETRATION (test code = MCHC) RED CELL DISTRIBUTION 13.6 SD 11.5-14.5 N WIDTH (test code = RDW) PLATELET COUNT (test 90 K/mm3 150-450 L code = PLT) MEAN PLATELET VOLUME 10.40 fL 7.0-9.6 H (test code = MPV) NEUTROPHIL % (test 64.4 % 40-76 N code = NT%) IMMATURE GRANULOCYTE 1.8 % 0.0-5.0 N % (test code = IG%) LYMPHOCYTE % (test 12.1 % 20.5-51.1 L code = LY%) MONOCYTE % (test code 9.4 % 1.7-9.3 H = MO%) EOSINOPHIL % (test 11.7 % 0.0-6.0 H code = EO%) BASOPHIL % (test code 0.6 % 0.0-2.0 N = BA%) NUCLEATED RBC % (test 0.0 /100WBC% 0.0-1.0 N code = NRBC%) NEUTROPHIL # (test 3.3 K/mm3 1.8-7.6 N code = NT#) IMMATURE GRANULOCYTE 0.09 x10 3/uL 0.00-0.03 H # (test code = IG#) LYMPHOCYTE # (test 0.6 K/mm3 0.6-3.0 N code = LY#) MONOCYTE # (test code 0.5 K/mm3 0.2-1.5 N = MO#) EOSINOPHIL # (test 0.6 K/mm3 0.0-0.4 H code = EO#) BASOPHIL # (test code 0.0 K/mm3 0.0-0.2 N = BA#) NUCLEATED RBC # (test 0.0 K/mm3 0.00-0.01 N code = NRBC#) MANUAL DIFF REQUIRED NO DIFF/SCN CRITERIA SLIDE R MOON (test code = MDIFF) CONSISTA NT WITH AUTO DIFFERENTI AL. CBC W/AUTO [id number] 06:48:00 Test Item Value Reference Range Interpretation Comments WHITE BLOOD CELL 5.1 K/mm3 3.5-11.0 N (test code = WBC) RED BLOOD CELL (test 2.77 M/mm3 4.70-6.10 L code = RBC) HEMOGLOBIN (test code 8.4 G/DL 12.3-15.9 L = HGB) HEMATOCRIT (test code 25.9 % 35.8-46.7 L = HCT) MEAN CELL VOLUME 93.5 Fl 86.3-98.9 N (test code = MCV) MEAN CELL HGB (test 30.3 pg 28.9-34.4 N code = MCH) MEAN CELL HGB 32.4 G/DL 32.1-34.5 N CONCETRATION (test code = MCHC) RED CELL DISTRIBUTION 13.6 SD 11.5-14.5 N WIDTH (test code = RDW) PLATELET COUNT (test 90 K/mm3 150-450 L code = PLT) MEAN PLATELET VOLUME 10.40 fL 7.0-9.6 H (test code = MPV) NEUTROPHIL % (test 64.4 % 40-76 N code = NT%) IMMATURE GRANULOCYTE 1.8 % 0.0-5.0 N % (test code = IG%) LYMPHOCYTE % (test 12.1 % 20.5-51.1 L code = LY%) MONOCYTE % (test code 9.4 % 1.7-9.3 H = MO%) EOSINOPHIL % (test 11.7 % 0.0-6.0 H code = EO%) BASOPHIL % (test code 0.6 % 0.0-2.0 N = BA%) NUCLEATED RBC % (test 0.0 /100WBC% 0.0-1.0 N code = NRBC%) NEUTROPHIL # (test 3.3 K/mm3 1.8-7.6 N code = NT#) IMMATURE GRANULOCYTE 0.09 x10 3/uL 0.00-0.03 H # (test code = IG#) LYMPHOCYTE # (test 0.6 K/mm3 0.6-3.0 N code = LY#) MONOCYTE # (test code 0.5 K/mm3 0.2-1.5 N = MO#) EOSINOPHIL # (test 0.6 K/mm3 0.0-0.4 H code = EO#) BASOPHIL # (test code 0.0 K/mm3 0.0-0.2 N = BA#) NUCLEATED RBC # (test 0.0 K/mm3 0.00-0.01 N code = NRBC#) MANUAL DIFF REQUIRED NO DIFF/SCN CRITERIA SLIDE R EVIEW (test code = MDIFF) CONSISTA NT WITH AUTO DIFFERENTI AL. BASIC METABOLIC [id number] 06:04:00 Test Item Value Reference Range Interpretation Comments SODIUM (test code = NA) 138 mmol/L 134-147 N POTASSIUM (test code = K) 4.3 mmol/L 3.4-5.0 N CHLORIDE (test code = CL) 106 mmol/L 100-108 N CARBON DIOXIDE (test code = CO2) 25 mmol/L 21-32 N ANION GAP (test code = GAP) 7.0 GAP calc 4.0-15.0 N GLUCOSE (test code = GLU) 113 MG/DL 70-110 H BLOOD UREA NITROGEN (test code = 45 MG/DL 7-18 H BUN) GLOMERULAR FILTRATION RATE (test 32 estGFR >60 L code = GFR) CREATININE (test code = CREAT) 2.2 MG/DL 0.8-1.3 H CALCIUM (test code = CA) 9.1 MG/DL 8.5-10.1 N PROTHROMBIN [id number] 05:45:00 Test Item Value Reference Range Interpretation Comments PT PATIENT (test code = PTP) 11.9 SECONDS 9.3-12.9 N INTERNATIONAL NORMAL RATIO 1.06 INR Unit 0.8-1.2 N (test code = INR) CBC W/AUTO [id number] 05:40:00 Test Item Value Reference Range Interpretation Comments WHITE BLOOD CELL (test code = WBC) 5.1 K/mm3 3.5-11.0 N RED BLOOD CELL (test code = RBC) 2.77 M/mm3 4.70-6.10 L HEMOGLOBIN (test code = HGB) 8.4 G/DL 12.3-15.9 L HEMATOCRIT (test code = HCT) 25.9 % 35.8-46.7 L MEAN CELL VOLUME (test code = MCV) 93.5 Fl 86.3-98.9 N MEAN CELL HGB (test code = MCH) 30.3 pg 28.9-34.4 N MEAN CELL HGB CONCETRATION (test 32.4 G/DL 32.1-34.5 N code = MCHC) RED CELL DISTRIBUTION WIDTH (test SD 11.5-14.5 N code = RDW) PLATELET COUNT (test code = PLT) 90 K/mm3 150-450 L MEAN PLATELET VOLUME (test code = fL 7.0-9.6 H MPV) NEUTROPHIL % (test code = NT%) % 40-76 N IMMATURE GRANULOCYTE % (test code % 0.0-5.0 N = IG%) LYMPHOCYTE % (test code = LY%) % 20.5-51.1 L MONOCYTE % (test code = MO%) % 1.7-9.3 H EOSINOPHIL % (test code = EO%) % 0.0-6.0 H BASOPHIL % (test code = BA%) % 0.0-2.0 N NUCLEATED RBC % (test code = /100WBC% 0.0-1.0 N NRBC%) NEUTROPHIL # (test code = NT#) K/mm3 1.8-7.6 N IMMATURE GRANULOCYTE # (test code x10 3/uL 0.00-0.03 H = IG#) LYMPHOCYTE # (test code = LY#) K/mm3 0.6-3.0 N MONOCYTE # (test code = MO#) K/mm3 0.2-1.5 N EOSINOPHIL # (test code = EO#) K/mm3 0.0-0.4 H BASOPHIL # (test code = BA#) K/mm3 0.0-0.2 N NUCLEATED RBC # (test code = K/mm3 0.00-0.01 N NRBC#) MANUAL DIFF REQUIRED (test code = DIFF/SCN CRITERIA MDIFF) GLUCOSE BEDSIDE [id number] 20:17:00 Test Item Value Reference Range Interpretation Comments GLUCOSE BEDSIDE TESTING (test code 156 mg/dL 70-110 H = GLUBED) GLUCOSE BEDSIDE [id number] 17:17:00 Test Item Value Reference Range Interpretation Comments GLUCOSE BEDSIDE TESTING (test code 132 mg/dL 70-110 H = GLUBED) GLUCOSE BEDSIDE [id number] 11:56:00 Test Item Value Reference Range Interpretation Comments GLUCOSE BEDSIDE TESTING (test code 123 mg/dL 70-110 H = GLUBED) GLUCOSE BEDSIDE [id number] 08:11:00 Test Item Value Reference Range Interpretation Comments GLUCOSE BEDSIDE TESTING (test code 103 mg/dL 70-110 N = GLUBED) BASIC METABOLIC [id number] 07:31:00 Test Item Value Reference Range Interpretation Comments SODIUM (test code = NA) 137 mmol/L 134-147 N POTASSIUM (test code = K) 4.3 mmol/L 3.4-5.0 N CHLORIDE (test code = CL) 106 mmol/L 100-108 N CARBON DIOXIDE (test code = CO2) 26 mmol/L 21-32 N ANION GAP (test code = GAP) 5.0 GAP calc 4.0-15.0 N GLUCOSE (test code = GLU) 102 MG/DL 70-110 N BLOOD UREA NITROGEN (test code = 42 MG/DL 7-18 H BUN) GLOMERULAR FILTRATION RATE (test 32 estGFR >60 L code = GFR) CREATININE (test code = CREAT) 2.2 MG/DL 0.8-1.3 H CALCIUM (test code = CA) 8.8 MG/DL 8.5-10.1 N CBC W/AUTO [id number] 06:16:00 Test Item Value Reference Range Interpretation Comments WHITE BLOOD CELL (test code = 5.5 K/mm3 3.5-11.0 N WBC) RED BLOOD CELL (test code = 2.68 M/mm3 4.70-6.10 L RBC) HEMOGLOBIN (test code = HGB) 8.1 G/DL 12.3-15.9 L HEMATOCRIT (test code = HCT) 25.1 % 35.8-46.7 L MEAN CELL VOLUME (test code = 93.7 Fl 86.3-98.9 N MCV) MEAN CELL HGB (test code = MCH) 30.2 pg 28.9-34.4 N MEAN CELL HGB CONCETRATION 32.3 G/DL 32.1-34.5 N (test code = MCHC) RED CELL DISTRIBUTION WIDTH 13.8 SD 11.5-14.5 N (test code = RDW) PLATELET COUNT (test code = 96 K/mm3 150-450 L PLT) MEAN PLATELET VOLUME (test code 10.30 fL 7.0-9.6 H = MPV) NEUTROPHIL % (test code = NT%) 66.9 % 40-76 N IMMATURE GRANULOCYTE % (test 1.7 % 0.0-5.0 N code = IG%) LYMPHOCYTE % (test code = LY%) 12.3 % 20.5-51.1 L MONOCYTE % (test code = MO%) 7.3 % 1.7-9.3 N EOSINOPHIL % (test code = EO%) 11.4 % 0.0-6.0 H BASOPHIL % (test code = BA%) 0.4 % 0.0-2.0 N NUCLEATED RBC % (test code = 0.0 /100WBC% 0.0-1.0 N NRBC%) NEUTROPHIL # (test code = NT#) 3.7 K/mm3 1.8-7.6 N IMMATURE GRANULOCYTE # (test 0.09 x10 3/uL 0.00-0.03 H code = IG#) LYMPHOCYTE # (test code = LY#) 0.7 K/mm3 0.6-3.0 N MONOCYTE # (test code = MO#) 0.4 K/mm3 0.2-1.5 N EOSINOPHIL # (test code = EO#) 0.6 K/mm3 0.0-0.4 H BASOPHIL # (test code = BA#) 0.0 K/mm3 0.0-0.2 N NUCLEATED RBC # (test code = 0.0 K/mm3 0.00-0.01 N NRBC#) MANUAL DIFF REQUIRED (test code NO DIFF/SCN CRITERIA = MDIFF) PROTHROMBIN [id number] 06:15:00 Test Item Value Reference Range Interpretation Comments PT PATIENT (test code = PTP) 13.6 SECONDS 9.3-12.9 H INTERNATIONAL NORMAL RATIO 1.21 INR Unit 0.8-1.2 H (test code = INR) GLUCOSE BEDSIDE [id number] 20:11:00 Test Item Value Reference Range Interpretation Comments GLUCOSE BEDSIDE TESTING (test code 156 mg/dL 70-110 H = GLUBED) GLUCOSE BEDSIDE [id number] 17:31:00 Test Item Value Reference Range Interpretation Comments GLUCOSE BEDSIDE TESTING (test code 130 mg/dL 70-110 H = GLUBED) GLUCOSE BEDSIDE [id number] 12:10:00 Test Item Value Reference Range Interpretation Comments GLUCOSE BEDSIDE TESTING (test code 177 mg/dL 70-110 H = GLUBED) GLUCOSE BEDSIDE [id number] 08:19:00 Test Item Value Reference Range Interpretation Comments GLUCOSE BEDSIDE TESTING (test code 112 mg/dL 70-110 H = GLUBED) BASIC METABOLIC [id number] 08:12:00 Test Item Value Reference Range Interpretation Comments SODIUM (test code = NA) 138 mmol/L 134-147 N POTASSIUM (test code = K) 4.5 mmol/L 3.4-5.0 N CHLORIDE (test code = CL) 107 mmol/L 100-108 N CARBON DIOXIDE (test code = CO2) 24 mmol/L 21-32 N ANION GAP (test code = GAP) 7.0 GAP calc 4.0-15.0 N GLUCOSE (test code = GLU) 129 MG/DL 70-110 H BLOOD UREA NITROGEN (test code = 46 MG/DL 7-18 H BUN) GLOMERULAR FILTRATION RATE (test 33 estGFR >60 L code = GFR) CREATININE (test code = CREAT) 2.1 MG/DL 0.8-1.3 H CALCIUM (test code = CA) 8.6 MG/DL 8.5-10.1 N AG PROSTATE [id number] 08:12:00 Test Item Value Reference Range Interpretation Comments AG PROSTATE 0.9 ng/mL 0.0-4.0 Bailee ECLIA SPECIFIC (test methodology.A ccording to the code = PSA) [place] [employer], Se rum PSAshould decrease and re main at undetectable le vels afterradical pr ostatectomy. The AUA defines biochemicalrecu rrence as an initial PSA zuhair ue 0.2 ng/mL or greaterfollo wed by a subsequent conf irmatory PSA value 0.2 ng/mL or greater. Values obtained with different assay methods orkits cannot b e used interchangeably . Results cannot beinterp reted as absolute eviden ce of the presence or abs enceof malignant disea se.Performed At: [facility] [id number] [facility] [place] [id number] Kyle L MD Ph:[phone] RENAL FUNCTION [id number] 06:26:00 Test Item Value Reference Range Interpretation Comments SODIUM (test code = NA) 138 mmol/L 134-147 N POTASSIUM (test code = K) 4.4 mmol/L 3.4-5.0 N CHLORIDE (test code = CL) 104 mmol/L 100-108 N CARBON DIOXIDE (test code = CO2) 27 mmol/L 21-32 N GLUCOSE (test code = GLU) 121 MG/DL 70-110 H BLOOD UREA NITROGEN (test code = 42 MG/DL 7-18 H BUN) GLOMERULAR FILTRATION RATE (test 27 estGFR >60 L code = GFR) CREATININE (test code = CREAT) 2.5 MG/DL 0.8-1.3 H ALBUMIN (test code = ALB) 2.4 G/DL 3.4-5.0 L CALCIUM (test code = CA) 9.3 MG/DL 8.5-10.1 N PHOSPHOROUS (test code = PHOS) 3.4 MG/DL 2.5-4.9 N CBC W/AUTO [id number] 06:21:00 Test Item Value Reference Range Interpretation Comments WHITE BLOOD CELL (test code = 5.0 K/mm3 3.5-11.0 N WBC) RED BLOOD CELL (test code = 2.79 M/mm3 4.70-6.10 L RBC) HEMOGLOBIN (test code = HGB) 8.3 G/DL 12.3-15.9 L HEMATOCRIT (test code = HCT) 26.3 % 35.8-46.7 L MEAN CELL VOLUME (test code = 94.3 Fl 86.3-98.9 N MCV) MEAN CELL HGB (test code = MCH) 29.7 pg 28.9-34.4 N MEAN CELL HGB CONCETRATION 31.6 G/DL 32.1-34.5 L (test code = MCHC) RED CELL DISTRIBUTION WIDTH 13.6 SD 11.5-14.5 N (test code = RDW) PLATELET COUNT (test code = 105 K/mm3 150-450 L PLT) MEAN PLATELET VOLUME (test code 9.70 fL 7.0-9.6 H = MPV) NEUTROPHIL % (test code = NT%) 67.7 % 40-76 N IMMATURE GRANULOCYTE % (test 1.4 % 0.0-5.0 N code = IG%) LYMPHOCYTE % (test code = LY%) 10.5 % 20.5-51.1 L MONOCYTE % (test code = MO%) 9.1 % 1.7-9.3 N EOSINOPHIL % (test code = EO%) 10.9 % 0.0-6.0 H BASOPHIL % (test code = BA%) 0.4 % 0.0-2.0 N NUCLEATED RBC % (test code = 0.0 /100WBC% 0.0-1.0 N NRBC%) NEUTROPHIL # (test code = NT#) 3.4 K/mm3 1.8-7.6 N IMMATURE GRANULOCYTE # (test 0.07 x10 3/uL 0.00-0.03 H code = IG#) LYMPHOCYTE # (test code = LY#) 0.5 K/mm3 0.6-3.0 L MONOCYTE # (test code = MO#) 0.5 K/mm3 0.2-1.5 N EOSINOPHIL # (test code = EO#) 0.6 K/mm3 0.0-0.4 H BASOPHIL # (test code = BA#) 0.0 K/mm3 0.0-0.2 N NUCLEATED RBC # (test code = 0.0 K/mm3 0.00-0.01 N NRBC#) MANUAL DIFF REQUIRED (test code NO DIFF/SCN CRITERIA = MDIFF) PROTHROMBIN [id number] 06:21:00 Test Item Value Reference Range Interpretation Comments PT PATIENT (test code = PTP) 12.8 SECONDS 9.3-12.9 N INTERNATIONAL NORMAL RATIO 1.14 INR Unit 0.8-1.2 N (test code = INR) GLUCOSE BEDSIDE [id number] 19:54:00 Test Item Value Reference Range Interpretation Comments GLUCOSE BEDSIDE TESTING (test code 139 mg/dL 70-110 H = GLUBED) GLUCOSE BEDSIDE [id number] 15:57:00 Test Item Value Reference Range Interpretation Comments GLUCOSE BEDSIDE TESTING (test code 134 mg/dL 70-110 H = GLUBED) PROTHROMBIN [id number] 15:44:00 Test Item Value Reference Range Interpretation Comments PT PATIENT (test code = PTP) 13.1 SECONDS 9.3-12.9 H INTERNATIONAL NORMAL RATIO 1.17 INR Unit 0.8-1.2 N (test code = INR) GLUCOSE BEDSIDE [id number] 11:43:00 Test Item Value Reference Range Interpretation Comments GLUCOSE BEDSIDE TESTING (test code 150 mg/dL 70-110 H = GLUBED) GLUCOSE BEDSIDE [id number] 07:56:00 Test Item Value Reference Range Interpretation Comments GLUCOSE BEDSIDE TESTING (test code 121 mg/dL 70-110 H = GLUBED) [id number] 07:18:00 Test Item Value Reference Range Interpretation Comments HAPTOGLOBIN (test code 169 mg/dL 34-355 Perfo rmed At: BN = HAPT) [facility] [id number] ra Jj ADAMS Ph:[phone] CBC W/AUTO [id number] 04:45:00 Test Item Value Reference Range Interpretation Comments WHITE BLOOD CELL 4.4 K/mm3 3.5-11.0 N (test code = WBC) RED BLOOD CELL (test 2.66 M/mm3 4.70-6.10 L code = RBC) HEMOGLOBIN (test code 8.1 G/DL 12.3-15.9 L = HGB) HEMATOCRIT (test code 24.8 % 35.8-46.7 L = HCT) MEAN CELL VOLUME 93.2 Fl 86.3-98.9 N (test code = MCV) MEAN CELL HGB (test 30.5 pg 28.9-34.4 N code = MCH) MEAN CELL HGB 32.7 G/DL 32.1-34.5 N CONCETRATION (test code = MCHC) RED CELL DISTRIBUTION 13.6 SD 11.5-14.5 N WIDTH (test code = RDW) PLATELET COUNT (test 105 K/mm3 150-450 L code = PLT) MEAN PLATELET VOLUME 9.90 fL 7.0-9.6 H (test code = MPV) NEUTROPHIL % (test 65.5 % 40-76 N code = NT%) IMMATURE GRANULOCYTE 1.4 % 0.0-5.0 N % (test code = IG%) LYMPHOCYTE % (test 12.3 % 20.5-51.1 L code = LY%) MONOCYTE % (test code 9.8 % 1.7-9.3 H = MO%) EOSINOPHIL % (test 10.5 % 0.0-6.0 H code = EO%) BASOPHIL % (test code 0.5 % 0.0-2.0 N = BA%) NUCLEATED RBC % (test 0.0 /100WBC% 0.0-1.0 N code = NRBC%) NEUTROPHIL # (test 2.9 K/mm3 1.8-7.6 N code = NT#) IMMATURE GRANULOCYTE 0.06 x10 3/uL 0.00-0.03 H # (test code = IG#) LYMPHOCYTE # (test 0.5 K/mm3 0.6-3.0 L code = LY#) MONOCYTE # (test code 0.4 K/mm3 0.2-1.5 N = MO#) EOSINOPHIL # (test 0.5 K/mm3 0.0-0.4 H code = EO#) BASOPHIL # (test code 0.0 K/mm3 0.0-0.2 N = BA#) NUCLEATED RBC # (test 0.0 K/mm3 0.00-0.01 N code = NRBC#) MANUAL DIFF REQUIRED NO DIFF/SCN CRITERIA SLIDE R GERTRUDISW (test code = MDIFF) CONSISTA NT WITH AUTO DIFFERENTI AL. BASIC METABOLIC [id number] 04:19:00 Test Item Value Reference Range Interpretation Comments SODIUM (test code = NA) 136 mmol/L 134-147 N POTASSIUM (test code = K) 4.3 mmol/L 3.4-5.0 N CHLORIDE (test code = CL) 102 mmol/L 100-108 N CARBON DIOXIDE (test code = CO2) 26 mmol/L 21-32 N ANION GAP (test code = GAP) 8.0 GAP calc 4.0-15.0 N GLUCOSE (test code = GLU) 205 MG/DL 70-110 H BLOOD UREA NITROGEN (test code = 39 MG/DL 7-18 H BUN) GLOMERULAR FILTRATION RATE (test 30 estGFR >60 L code = GFR) CREATININE (test code = CREAT) 2.3 MG/DL 0.8-1.3 H CALCIUM (test code = CA) 8.7 MG/DL 8.5-10.1 N RENAL FUNCTION [id number] 04:19:00 Test Item Value Reference Range Interpretation Comments ALBUMIN (test code = ALB) 2.1 G/DL 3.4-5.0 L PHOSPHOROUS (test code = PHOS) 3.2 MG/DL 2.5-4.9 N BASIC METABOLIC [id number] 04:14:00 Test Item Value Reference Range Interpretation Comments SODIUM (test code = NA) 136 mmol/L 134-147 N POTASSIUM (test code = K) 4.3 mmol/L 3.4-5.0 N CHLORIDE (test code = CL) 102 mmol/L 100-108 N CARBON DIOXIDE (test code = CO2) 26 mmol/L 21-32 N ANION GAP (test code = GAP) 8.0 GAP calc 4.0-15.0 N GLUCOSE (test code = GLU) 205 MG/DL 70-110 H BLOOD UREA NITROGEN (test code = 39 MG/DL 7-18 H BUN) GLOMERULAR FILTRATION RATE (test estGFR >60 code = GFR) CREATININE (test code = CREAT) MG/DL 0.8-1.3 CALCIUM (test code = CA) 8.7 MG/DL 8.5-10.1 N RENAL FUNCTION [id number] 04:14:00 Test Item Value Reference Range Interpretation Comments ALBUMIN (test code = ALB) 2.1 G/DL 3.4-5.0 L PHOSPHOROUS (test code = PHOS) MG/DL 2.5-4.9 THROMBOPLASTIN TIME [id number] 04:10:00 Test Item Value Reference Range Interpretation Comments THROMBOPLASTIN TIME PARTIAL 67.1 SECONDS 26-35 H (test code = PTT) CBC W/AUTO [id number] 04:04:00 Test Item Value Reference Range Interpretation Comments WHITE BLOOD CELL (test code = WBC) 4.4 K/mm3 3.5-11.0 N RED BLOOD CELL (test code = RBC) 2.66 M/mm3 4.70-6.10 L HEMOGLOBIN (test code = HGB) 8.1 G/DL 12.3-15.9 L HEMATOCRIT (test code = HCT) 24.8 % 35.8-46.7 L MEAN CELL VOLUME (test code = MCV) 93.2 Fl 86.3-98.9 N MEAN CELL HGB (test code = MCH) 30.5 pg 28.9-34.4 N MEAN CELL HGB CONCETRATION (test 32.7 G/DL 32.1-34.5 N code = MCHC) RED CELL DISTRIBUTION WIDTH (test SD 11.5-14.5 N code = RDW) PLATELET COUNT (test code = PLT) 105 K/mm3 150-450 L MEAN PLATELET VOLUME (test code = fL 7.0-9.6 H MPV) NEUTROPHIL % (test code = NT%) % 40-76 N IMMATURE GRANULOCYTE % (test code % 0.0-5.0 N = IG%) LYMPHOCYTE % (test code = LY%) % 20.5-51.1 L MONOCYTE % (test code = MO%) % 1.7-9.3 H EOSINOPHIL % (test code = EO%) % 0.0-6.0 H BASOPHIL % (test code = BA%) % 0.0-2.0 N NUCLEATED RBC % (test code = /100WBC% 0.0-1.0 N NRBC%) NEUTROPHIL # (test code = NT#) K/mm3 1.8-7.6 N IMMATURE GRANULOCYTE # (test code x10 3/uL 0.00-0.03 H = IG#) LYMPHOCYTE # (test code = LY#) K/mm3 0.6-3.0 L MONOCYTE # (test code = MO#) K/mm3 0.2-1.5 N EOSINOPHIL # (test code = EO#) K/mm3 0.0-0.4 H BASOPHIL # (test code = BA#) K/mm3 0.0-0.2 N NUCLEATED RBC # (test code = K/mm3 0.00-0.01 N NRBC#) MANUAL DIFF REQUIRED (test code = DIFF/SCN CRITERIA MDIFF) THROMBOPLASTIN TIME [id number] 21:52:00 Test Item Value Reference Range Interpretation Comments THROMBOPLASTIN TIME PARTIAL 58.9 SECONDS 26-35 H (test code = PTT) GLUCOSE BEDSIDE [id number] 20:06:00 Test Item Value Reference Range Interpretation Comments GLUCOSE BEDSIDE TESTING (test code 155 mg/dL 70-110 H = GLUBED) RENAL FUNCTION [id number] 18:22:00 Test Item Value Reference Range Interpretation Comments SODIUM (test code = NA) 136 mmol/L 134-147 N POTASSIUM (test code = K) 4.3 mmol/L 3.4-5.0 N CHLORIDE (test code = CL) 102 mmol/L 100-108 N CARBON DIOXIDE (test code = CO2) 27 mmol/L 21-32 N GLUCOSE (test code = GLU) 154 MG/DL 70-110 H BLOOD UREA NITROGEN (test code = 38 MG/DL 7-18 H BUN) GLOMERULAR FILTRATION RATE (test 30 estGFR >60 L code = GFR) CREATININE (test code = CREAT) 2.3 MG/DL 0.8-1.3 H ALBUMIN (test code = ALB) 2.4 G/DL 3.4-5.0 L CALCIUM (test code = CA) 8.9 MG/DL 8.5-10.1 N PHOSPHOROUS (test code = PHOS) 2.8 MG/DL 2.5-4.9 N GLUCOSE BEDSIDE [id number] 16:38:00 Test Item Value Reference Range Interpretation Comments GLUCOSE BEDSIDE TESTING (test code 140 mg/dL 70-110 H = GLUBED) THROMBOPLASTIN TIME [id number] 16:25:00 Test Item Value Reference Range Interpretation Comments THROMBOPLASTIN TIME PARTIAL 49.2 SECONDS 26-35 H (test code = PTT) PROTEIN ELECTROPHORESIS [id number] 15:12:00 Test Item Value Reference Range Interpretation Comments TOTAL PROTEIN 5.2 g/dL 6.0-8.5 A (test code = PROTE) ALBUMIN (test 2.5 g/dL 2.9-4.4 A code = ALBE) [id number]-2-AYPNGMRW 0.2 g/dL 0.0-0.4 (test code = A1G) VGWUR-0-EKWBUQIX 0.9 g/dL 0.4-1.0 (test code = A2G) BETA GLOBULIN 0.8 g/dL 0.7-1.3 (test code = BG) GAMMA GLOBULIN 0.8 g/dL 0.4-1.8 (test code = GG) M-SPIKE,SERUM Not Observed Not Observed (test code = g/dL MSPIKES) GLOBULIN ELECT 2.7 g/dL 2.2-3.9 (test code = GLOBE) ALBUMIN/GLOBULIN 0.9 0.7-1.7 RATIO (test code = AGE) PROT.ELECTROPH.I Comment See_Comment Protein NTERPRETATION electrophoresi s scan (test code = will follow via [employer]) computer,mail, or bobbin [employer] delivery.Perfor med At: HD [facility] [address] [place] [id number] deejay Soto MD Ph:[phone] rformed At: DA [facility] [address] [facility] [address] [place], [place] [id number] h CN MD Ph:[phone] [Automated mess age] The system [employer] generated this result transmitted ref erence range: (). The reference range was not used to int erpret this result as normal/abnormal . RHEUMATOID FACTOR [id number] 13:11:00 Test Item Value Reference Range Interpretation Comments RHEUMATOID FACTOR <10.0 IU/mL 0.0-13.9 Performed At: HD SCREEN (test code = [facility] [id number] RA) [place], [place] [id number] Soto MD Ph:[phone] ANTINUCLEAR ANTIBODIES [id number] 13:11:00 Test Item Value Reference Range Interpretation Comments MARLYN TITER (test code Negative See_Comment Negati ve <1:80 = ANATITR) Borderline 1:80 Positive >1:80Performed At: HD [facility] [address] [id number] Soto MD Ph:[phone] [ Automated message] The sy stem which generated this result transmitted ref erence range: (). The reference range was not u sed to interpret this result as normal/abnormal . GLUCOSE BEDSIDE [id number] 11:18:00 Test Item Value Reference Range Interpretation Comments GLUCOSE BEDSIDE TESTING (test code 157 mg/dL 70-110 H = GLUBED) THROMBOPLASTIN TIME [id number] 08:59:00 Test Item Value Reference Range Interpretation Comments THROMBOPLASTIN TIME PARTIAL 71.0 SECONDS 26-35 H (test code = PTT) GLUCOSE BEDSIDE [id number] 08:05:00 Test Item Value Reference Range Interpretation Comments GLUCOSE BEDSIDE TESTING (test code 109 mg/dL 70-110 N = GLUBED) CBC W/AUTO [id number] 07:59:00 Test Item Value Reference Range Interpretation Comments WHITE BLOOD CELL 4.4 K/mm3 3.5-11.0 N (test code = WBC) RED BLOOD CELL (test 2.76 M/mm3 4.70-6.10 L code = RBC) HEMOGLOBIN (test code 8.3 G/DL 12.3-15.9 L = HGB) HEMATOCRIT (test code 26.0 % 35.8-46.7 L = HCT) MEAN CELL VOLUME 94.2 Fl 86.3-98.9 N (test code = MCV) MEAN CELL HGB (test 30.1 pg 28.9-34.4 N code = MCH) MEAN CELL HGB 31.9 G/DL 32.1-34.5 L CONCETRATION (test code = MCHC) RED CELL DISTRIBUTION 13.7 SD 11.5-14.5 N WIDTH (test code = RDW) PLATELET COUNT (test 114 K/mm3 150-450 L code = PLT) MEAN PLATELET VOLUME 10.20 fL 7.0-9.6 H (test code = MPV) NEUTROPHIL % (test 66.7 % 40-76 N code = NT%) IMMATURE GRANULOCYTE 0.9 % 0.0-5.0 N % (test code = IG%) LYMPHOCYTE % (test 12.8 % 20.5-51.1 L code = LY%) MONOCYTE % (test code 9.8 % 1.7-9.3 H = MO%) EOSINOPHIL % (test 9.1 % 0.0-6.0 H code = EO%) BASOPHIL % (test code 0.7 % 0.0-2.0 N = BA%) NUCLEATED RBC % (test 0.0 /100WBC% 0.0-1.0 N code = NRBC%) NEUTROPHIL # (test 2.9 K/mm3 1.8-7.6 N code = NT#) IMMATURE GRANULOCYTE 0.04 x10 3/uL 0.00-0.03 H # (test code = IG#) LYMPHOCYTE # (test 0.6 K/mm3 0.6-3.0 N code = LY#) MONOCYTE # (test code 0.4 K/mm3 0.2-1.5 N = MO#) EOSINOPHIL # (test 0.4 K/mm3 0.0-0.4 N code = EO#) BASOPHIL # (test code 0.0 K/mm3 0.0-0.2 N = BA#) NUCLEATED RBC # (test 0.0 K/mm3 0.00-0.01 N code = NRBC#) MANUAL DIFF REQUIRED NO DIFF/SCN CRITERIA SLIDE R EVIEW (test code = MDIFF) CONSISTA NT WITH AUTO DIFFERENTI AL. CBC W/AUTO [id number] 06:49:00 Test Item Value Reference Range Interpretation Comments WHITE BLOOD CELL (test code = WBC) 4.4 K/mm3 3.5-11.0 N RED BLOOD CELL (test code = RBC) 2.76 M/mm3 4.70-6.10 L HEMOGLOBIN (test code = HGB) 8.3 G/DL 12.3-15.9 L HEMATOCRIT (test code = HCT) 26.0 % 35.8-46.7 L MEAN CELL VOLUME (test code = MCV) 94.2 Fl 86.3-98.9 N MEAN CELL HGB (test code = MCH) 30.1 pg 28.9-34.4 N MEAN CELL HGB CONCETRATION (test 31.9 G/DL 32.1-34.5 L code = MCHC) RED CELL DISTRIBUTION WIDTH (test SD 11.5-14.5 N code = RDW) PLATELET COUNT (test code = PLT) 114 K/mm3 150-450 L MEAN PLATELET VOLUME (test code = fL 7.0-9.6 H MPV) NEUTROPHIL % (test code = NT%) % 40-76 N IMMATURE GRANULOCYTE % (test code % 0.0-5.0 N = IG%) LYMPHOCYTE % (test code = LY%) % 20.5-51.1 L MONOCYTE % (test code = MO%) % 1.7-9.3 H EOSINOPHIL % (test code = EO%) % 0.0-6.0 H BASOPHIL % (test code = BA%) % 0.0-2.0 N NUCLEATED RBC % (test code = /100WBC% 0.0-1.0 N NRBC%) NEUTROPHIL # (test code = NT#) K/mm3 1.8-7.6 N IMMATURE GRANULOCYTE # (test code x10 3/uL 0.00-0.03 H = IG#) LYMPHOCYTE # (test code = LY#) K/mm3 0.6-3.0 N MONOCYTE # (test code = MO#) K/mm3 0.2-1.5 N EOSINOPHIL # (test code = EO#) K/mm3 0.0-0.4 N BASOPHIL # (test code = BA#) K/mm3 0.0-0.2 N NUCLEATED RBC # (test code = K/mm3 0.00-0.01 N NRBC#) MANUAL DIFF REQUIRED (test code = DIFF/SCN CRITERIA MDIFF) THROMBOPLASTIN TIME [id number] 00:57:00 Test Item Value Reference Range Interpretation Comments THROMBOPLASTIN TIME PARTIAL 100.9 SECONDS 26-35 HH (test code = PTT) HGB [id number] 22:14:00 Test Item Value Reference Range Interpretation Comments HEMOGLOBIN (test code = HGB) 8.1 G/DL 12.3-15.9 L HEMATOCRIT (test code = HCT) 25.0 % 35.8-46.7 L GLUCOSE BEDSIDE [id number] 20:16:00 Test Item Value Reference Range Interpretation Comments GLUCOSE BEDSIDE TESTING (test code 206 mg/dL 70-110 H = GLUBED) THROMBOPLASTIN TIME [id number] 18:23:00 Test Item Value Reference Range Interpretation Comments THROMBOPLASTIN TIME PARTIAL 46.3 SECONDS 26-35 H (test code = PTT) GLUCOSE BEDSIDE [id number] 16:15:00 Test Item Value Reference Range Interpretation Comments GLUCOSE BEDSIDE TESTING (test code 166 mg/dL 70-110 H = GLUBED) RHEUMATOID FACTOR [id number] 14:11:00 Test Item Value Reference Range Interpretation Comments RHEUMATOID FACTOR <10.0 IU/mL 0.0-13.9 Performed At: HD SCREEN (test code = [facility] [id number] ) [place], [place] [id number] Ray Soto MD Ph:[phone] ANTINUCLEAR ANTIBODIES [id number] 14:11:00 Test Item Value Reference Range Interpretation Comments MARLYN TITER (test code = ANATITR) GLUCOSE BEDSIDE [id number] 11:58:00 Test Item Value Reference Range Interpretation Comments GLUCOSE BEDSIDE TESTING (test code 194 mg/dL 70-110 H = GLUBED) CBC W/AUTO [id number] 11:38:00 Test Item Value Reference Range Interpretation Comments WHITE BLOOD CELL 4.3 K/mm3 3.5-11.0 N (test code = WBC) RED BLOOD CELL (test 2.73 M/mm3 4.70-6.10 L code = RBC) HEMOGLOBIN (test code 8.3 G/DL 12.3-15.9 L = HGB) HEMATOCRIT (test code 25.2 % 35.8-46.7 L = HCT) MEAN CELL VOLUME 92.3 Fl 86.3-98.9 N (test code = MCV) MEAN CELL HGB (test 30.4 pg 28.9-34.4 N code = MCH) MEAN CELL HGB 32.9 G/DL 32.1-34.5 N CONCETRATION (test code = MCHC) RED CELL DISTRIBUTION 13.7 SD 11.5-14.5 N WIDTH (test code = RDW) PLATELET COUNT (test 111 K/mm3 150-450 L code = PLT) MEAN PLATELET VOLUME 10.10 fL 7.0-9.6 H (test code = MPV) NEUTROPHIL % (test 64.9 % 40-76 N code = NT%) IMMATURE GRANULOCYTE 0.9 % 0.0-5.0 N % (test code = IG%) LYMPHOCYTE % (test 12.2 % 20.5-51.1 L code = LY%) MONOCYTE % (test code 10.8 % 1.7-9.3 H = MO%) EOSINOPHIL % (test 10.5 % 0.0-6.0 H code = EO%) BASOPHIL % (test code 0.7 % 0.0-2.0 N = BA%) NUCLEATED RBC % (test 0.0 /100WBC% 0.0-1.0 N code = NRBC%) NEUTROPHIL # (test 2.8 K/mm3 1.8-7.6 N code = NT#) IMMATURE GRANULOCYTE 0.04 x10 3/uL 0.00-0.03 H # (test code = IG#) LYMPHOCYTE # (test 0.5 K/mm3 0.6-3.0 L code = LY#) MONOCYTE # (test code 0.5 K/mm3 0.2-1.5 N = MO#) EOSINOPHIL # (test 0.5 K/mm3 0.0-0.4 H code = EO#) BASOPHIL # (test code 0.0 K/mm3 0.0-0.2 N = BA#) NUCLEATED RBC # (test 0.0 K/mm3 0.00-0.01 N code = NRBC#) MANUAL DIFF REQUIRED NO DIFF/SCN CRITERIA SLIDE R EVIEW (test code = MDIFF) CONSISTA NT WITH AUTO DIFFERENTI AL. Comment: IF NOT ALREADY DONE WITHIN THE LAST 24 HOURSPROTHROMBIN [id number] 09:14:00 Test Item Value Reference Range Interpretation Comments PT PATIENT (test code = PTP) 12.3 SECONDS 9.3-12.9 N INTERNATIONAL NORMAL RATIO 1.10 INR Unit 0.8-1.2 N (test code = INR) THROMBOPLASTIN TIME [id number] 09:14:00 Test Item Value Reference Range Interpretation Comments THROMBOPLASTIN TIME PARTIAL 36.7 SECONDS 26-35 H (test code = PTT) CBC W/AUTO [id number] 08:45:00 Test Item Value Reference Range Interpretation Comments WHITE BLOOD CELL (test code = WBC) 4.3 K/mm3 3.5-11.0 N RED BLOOD CELL (test code = RBC) 2.73 M/mm3 4.70-6.10 L HEMOGLOBIN (test code = HGB) 8.3 G/DL 12.3-15.9 L HEMATOCRIT (test code = HCT) 25.2 % 35.8-46.7 L MEAN CELL VOLUME (test code = MCV) 92.3 Fl 86.3-98.9 N MEAN CELL HGB (test code = MCH) 30.4 pg 28.9-34.4 N MEAN CELL HGB CONCETRATION (test 32.9 G/DL 32.1-34.5 N code = MCHC) RED CELL DISTRIBUTION WIDTH (test SD 11.5-14.5 N code = RDW) PLATELET COUNT (test code = PLT) 111 K/mm3 150-450 L MEAN PLATELET VOLUME (test code = fL 7.0-9.6 H MPV) NEUTROPHIL % (test code = NT%) % 40-76 N IMMATURE GRANULOCYTE % (test code % 0.0-5.0 N = IG%) LYMPHOCYTE % (test code = LY%) % 20.5-51.1 L MONOCYTE % (test code = MO%) % 1.7-9.3 H EOSINOPHIL % (test code = EO%) % 0.0-6.0 H BASOPHIL % (test code = BA%) % 0.0-2.0 N NUCLEATED RBC % (test code = /100WBC% 0.0-1.0 N NRBC%) NEUTROPHIL # (test code = NT#) K/mm3 1.8-7.6 N IMMATURE GRANULOCYTE # (test code x10 3/uL 0.00-0.03 H = IG#) LYMPHOCYTE # (test code = LY#) K/mm3 0.6-3.0 L MONOCYTE # (test code = MO#) K/mm3 0.2-1.5 N EOSINOPHIL # (test code = EO#) K/mm3 0.0-0.4 H BASOPHIL # (test code = BA#) K/mm3 0.0-0.2 N NUCLEATED RBC # (test code = K/mm3 0.00-0.01 N NRBC#) MANUAL DIFF REQUIRED (test code = DIFF/SCN CRITERIA MDIFF) Comment: IF NOT ALREADY DONE WITHIN THE LAST 24 HOURSRHEUMATOID FACTOR SCREEN 2021-03-24 08:13:00 Test Item Value Reference Range Interpretation Comments RHEUMATOID FACTOR <10.0 IU/mL 0.0-13.9 Performed At: HD SCREEN (test code = [facility] [id number] ) [place], [place] [id number] Ray Soto MD Ph:[phone] ANTINUCLEAR ANTIBODIES [id number] 08:13:00 Test Item Value Reference Range Interpretation Comments MARLYN TITER (test code = ANATITR) MARLYN COMMENT (test code = ANACOM) GLUCOSE BEDSIDE [id number] 08:10:00 Test Item Value Reference Range Interpretation Comments GLUCOSE BEDSIDE TESTING (test code 129 mg/dL 70-110 H = GLUBED) RENAL FUNCTION [id number] 06:39:00 Test Item Value Reference Range Interpretation Comments SODIUM (test code = NA) 139 mmol/L 134-147 N POTASSIUM (test code = K) 4.3 mmol/L 3.4-5.0 N CHLORIDE (test code = CL) 108 mmol/L 100-108 N CARBON DIOXIDE (test code = CO2) 28 mmol/L 21-32 N GLUCOSE (test code = GLU) 143 MG/DL 70-110 H BLOOD UREA NITROGEN (test code = 38 MG/DL 7-18 H BUN) GLOMERULAR FILTRATION RATE (test 37 estGFR >60 L code = GFR) CREATININE (test code = CREAT) 1.9 MG/DL 0.8-1.3 H ALBUMIN (test code = ALB) 2.2 G/DL 3.4-5.0 L CALCIUM (test code = CA) 8.6 MG/DL 8.5-10.1 N PHOSPHOROUS (test code = PHOS) 3.1 MG/DL 2.5-4.9 N ACUTE HEPATITIS [id number] 03:13:00 Test Item Value Reference Range Interpretation Comments AB HEPATITIS A Negative Negative IGM (test code = HAVMAB) AG HEPATITIS B NON REACTIVE NonReactive SURFACE (test INDEX code = HBSAG) AB HEPATITIS B Negative Negative CORE IGM (test code = HBCMAB) AB HEPATITIS C <0.1 0.0-0.9 INFCE Result Units: (test code = s/co ratio Nega tive: HCVAB) < 0.8 Indetermi feng: 0.8 - 0.9 Posit abril: > 0.9 The CDC recommends that a positive HCV an tibody result be follo wed up with a HCV Nucl eic Acid Amplificat ion test ([id number]).Perfor med At: [facility] [address] [place], [place] [id number] Ray Soto MD Ph:[phone] VANCOMYCIN [id number] 00:25:00 Test Item Value Reference Range Interpretation Comments VANCOMYCIN TROUGH (test code = 23.2 mcG/ML 10-20 H VANCT) GLUCOSE BEDSIDE [id number] 20:19:00 Test Item Value Reference Range Interpretation Comments GLUCOSE BEDSIDE TESTING (test code 170 mg/dL 70-110 H = GLUBED) GLUCOSE BEDSIDE [id number] 17:13:00 Test Item Value Reference Range Interpretation Comments GLUCOSE BEDSIDE TESTING (test code 164 mg/dL 70-110 H = GLUBED) CBC W/AUTO [id number] 15:47:00 Test Item Value Reference Range Interpretation Comments WHITE BLOOD CELL 4.3 K/mm3 3.5-11.0 N (test code = WBC) RED BLOOD CELL (test 2.71 M/mm3 4.70-6.10 L code = RBC) HEMOGLOBIN (test code 8.2 G/DL 12.3-15.9 L = HGB) HEMATOCRIT (test code 25.1 % 35.8-46.7 L = HCT) MEAN CELL VOLUME 92.6 Fl 86.3-98.9 N (test code = MCV) MEAN CELL HGB (test 30.3 pg 28.9-34.4 N code = MCH) MEAN CELL HGB 32.7 G/DL 32.1-34.5 N CONCETRATION (test code = MCHC) RED CELL DISTRIBUTION 13.7 SD 11.5-14.5 N WIDTH (test code = RDW) PLATELET COUNT (test 111 K/mm3 150-450 L code = PLT) MEAN PLATELET VOLUME 10.30 fL 7.0-9.6 H (test code = MPV) NEUTROPHIL % (test 67.8 % 40-76 N code = NT%) IMMATURE GRANULOCYTE 0.7 % 0.0-5.0 N % (test code = IG%) LYMPHOCYTE % (test 11.6 % 20.5-51.1 L code = LY%) MONOCYTE % (test code 10.9 % 1.7-9.3 H = MO%) EOSINOPHIL % (test 8.8 % 0.0-6.0 H code = EO%) BASOPHIL % (test code 0.2 % 0.0-2.0 N = BA%) NUCLEATED RBC % (test 0.0 /100WBC% 0.0-1.0 N code = NRBC%) NEUTROPHIL # (test 2.9 K/mm3 1.8-7.6 N code = NT#) IMMATURE GRANULOCYTE 0.03 x10 3/uL 0.00-0.03 N # (test code = IG#) LYMPHOCYTE # (test 0.5 K/mm3 0.6-3.0 L code = LY#) MONOCYTE # (test code 0.5 K/mm3 0.2-1.5 N = MO#) EOSINOPHIL # (test 0.4 K/mm3 0.0-0.4 N code = EO#) BASOPHIL # (test code 0.0 K/mm3 0.0-0.2 N = BA#) NUCLEATED RBC # (test 0.0 K/mm3 0.00-0.01 N code = NRBC#) MANUAL DIFF REQUIRED NO DIFF/SCN CRITERIA SLIDE R EVIEW (test code = MDIFF) CONSISTA NT WITH AUTO DIFFERENTI AL. RETIC COUNT (AUTOMATED)2021-03-23 15:47:00 Test Item Value Reference Range Interpretation Comments RETIC COUNT (AUTOMATED) (test code = 2.0 % 0.3-2.3 N RETICA) CBC W/AUTO [id number] 14:30:00 Test Item Value Reference Range Interpretation Comments WHITE BLOOD CELL (test code = WBC) 4.3 K/mm3 3.5-11.0 N RED BLOOD CELL (test code = RBC) 2.71 M/mm3 4.70-6.10 L HEMOGLOBIN (test code = HGB) 8.2 G/DL 12.3-15.9 L HEMATOCRIT (test code = HCT) 25.1 % 35.8-46.7 L MEAN CELL VOLUME (test code = MCV) 92.6 Fl 86.3-98.9 N MEAN CELL HGB (test code = MCH) 30.3 pg 28.9-34.4 N MEAN CELL HGB CONCETRATION (test 32.7 G/DL 32.1-34.5 N code = MCHC) RED CELL DISTRIBUTION WIDTH (test SD 11.5-14.5 N code = RDW) PLATELET COUNT (test code = PLT) 111 K/mm3 150-450 L MEAN PLATELET VOLUME (test code = fL 7.0-9.6 H MPV) NEUTROPHIL % (test code = NT%) % 40-76 N IMMATURE GRANULOCYTE % (test code % 0.0-5.0 N = IG%) LYMPHOCYTE % (test code = LY%) % 20.5-51.1 L MONOCYTE % (test code = MO%) % 1.7-9.3 H EOSINOPHIL % (test code = EO%) % 0.0-6.0 H BASOPHIL % (test code = BA%) % 0.0-2.0 N NUCLEATED RBC % (test code = /100WBC% 0.0-1.0 N NRBC%) NEUTROPHIL # (test code = NT#) K/mm3 1.8-7.6 N IMMATURE GRANULOCYTE # (test code x10 3/uL 0.00-0.03 N = IG#) LYMPHOCYTE # (test code = LY#) K/mm3 0.6-3.0 L MONOCYTE # (test code = MO#) K/mm3 0.2-1.5 N EOSINOPHIL # (test code = EO#) K/mm3 0.0-0.4 N BASOPHIL # (test code = BA#) K/mm3 0.0-0.2 N NUCLEATED RBC # (test code = K/mm3 0.00-0.01 N NRBC#) MANUAL DIFF REQUIRED (test code = DIFF/SCN CRITERIA MDIFF) RETIC COUNT (AUTOMATED)2021-03-23 14:30:00 Test Item Value Reference Range Interpretation Comments RETIC COUNT (AUTOMATED) (test code = % 0.3-2.3 N RETICA) COMPREHENSIVE METABOLIC [id number] 12:38:00 Test Item Value Reference Range Interpretation Comments SODIUM (test code = NA) 137 mmol/L 134-147 N POTASSIUM (test code = K) 5.1 mmol/L 3.4-5.0 H CHLORIDE (test code = CL) 107 mmol/L 100-108 N CARBON DIOXIDE (test code = CO2) 25 mmol/L 21-32 N ANION GAP (test code = GAP) 5.0 GAP calc 4.0-15.0 N GLUCOSE (test code = GLU) 140 MG/DL 70-110 H BLOOD UREA NITROGEN (test code = 40 MG/DL 7-18 H BUN) GLOMERULAR FILTRATION RATE (test 33 estGFR >60 L code = GFR) CREATININE (test code = CREAT) 2.1 MG/DL 0.8-1.3 H TOTAL PROTEIN (test code = PROT) 6.8 G/DL 6.4-8.2 N ALBUMIN (test code = ALB) 2.7 G/DL 3.4-5.0 L GLOBULIN (test code = GLOB) 4.1 GM/dL ALBUMIN/GLOBULIN RATIO (test 0.7 RATIO 1.2-2.2 L code = A/G) CALCIUM (test code = CA) 9.1 MG/DL 8.5-10.1 N BILIRUBIN TOTAL (test code = 0.40 MG/DL 0.2-1.2 N BILT) SGOT/AST (test code = AST) 22 Unit/L 15-37 N SGPT/ALT (test code = ALT) 24 Unit/L 12-78 N ALKALINE PHOSPHATASE TOTAL (test 123 Unit/L 50-136 N code = ALKP) PROTEIN ELECTROPHORESIS [id number] 12:38:00 Test Item Value Reference Range Interpretation Comments TOTAL PROTEIN (test code = PROTE) ALBUMIN (test code = ALBE) [id number] (test code = A1G) [id number] (test code = A2G) BETA GLOBULIN (test code = BG) GAMMA GLOBULIN (test code = GG) M-SPIKE,SERUM (test code = MSPIKES) GLOBULIN ELECT (test code = GLOBE) ALBUMIN/GLOBULIN RATIO (test code = AGE) PROT.ELECTROPH.INTERPRETATION (test code = ELEINT) LACTIC DEHYDROGENASE(LDH)2021-03-23 12:38:00 Test Item Value Reference Range Interpretation Comments LACTIC DEHYDROGENASE(LDH) (test 266 Unit/L 87-241 H code = LDH) FE W/TOTAL IRON BINDING CAP.2021-03-23 12:38:00 Test Item Value Reference Range Interpretation Comments SERUM IRON (test code = IRON) 65 mcG/DL 65-175 N TOTAL IRON BINDING CAPACITY (test 259 mcG/DL 250-450 N code = TIBC) IRON SATURATION (test code = 25 % calc 12-57 N FESAT) VITAMIN [id number] 12:38:00 Test Item Value Reference Range Interpretation Comments VITAMIN B12 (test code = VITB12) 967 PG/ML 183-986 N FOLIC [id number] 12:38:00 Test Item Value Reference Range Interpretation Comments FOLIC ACID (test code = FOL) 15.10 NG/ML 3.10-17.50 N THYROID STIMULATING [id number] 12:38:00 Test Item Value Reference Range Interpretation Comments THYROID STIMULATING HORMONE 1.790 mcIU/ML 0.340-4.820 N (test code = TSH) GLUCOSE BEDSIDE [id number] 12:08:00 Test Item Value Reference Range Interpretation Comments GLUCOSE BEDSIDE TESTING (test code 135 mg/dL 70-110 H = GLUBED) GLUCOSE BEDSIDE [id number] 08:22:00 Test Item Value Reference Range Interpretation Comments GLUCOSE BEDSIDE TESTING (test code 113 mg/dL 70-110 H = GLUBED) FE W/TOTAL IRON BINDING CAP.2021-03-23 07:17:00 Test Item Value Reference Range Interpretation Comments SERUM IRON (test code = IRON) 39 mcG/DL 65-175 L TOTAL IRON BINDING CAPACITY (test 214 mcG/DL 250-450 L code = TIBC) IRON SATURATION (test code = 18 % calc 12-57 N FESAT) [id number] 07:17:00 Test Item Value Reference Range Interpretation Comments TRANSFERRRIN (test code 134 mg/dL 177-329 A Perf ormed At: BN = TRANSF) [facility] [id number] ra Jj ADAMS Ph:[phone] VITAMIN [id number] 07:17:00 Test Item Value Reference Range Interpretation Comments VITAMIN B12 (test code = VITB12) 948 PG/ML 183-986 N FOLIC [id number] 07:17:00 Test Item Value Reference Range Interpretation Comments FOLIC ACID (test code = FOL) 5.70 NG/ML 3.10-17.50 N [id number] 07:17:00 Test Item Value Reference Range Interpretation Comments FERRITIN (test code = ELIN) 198.4 NG/ML 5.0-323.0 N RENAL FUNCTION [id number] 06:38:00 Test Item Value Reference Range Interpretation Comments SODIUM (test code = NA) 139 mmol/L 134-147 N POTASSIUM (test code = K) 4.3 mmol/L 3.4-5.0 N CHLORIDE (test code = CL) 107 mmol/L 100-108 N CARBON DIOXIDE (test code = CO2) 26 mmol/L 21-32 N GLUCOSE (test code = GLU) 122 MG/DL 70-110 H BLOOD UREA NITROGEN (test code = 41 MG/DL 7-18 H BUN) GLOMERULAR FILTRATION RATE (test 32 estGFR >60 L code = GFR) CREATININE (test code = CREAT) 2.2 MG/DL 0.8-1.3 H ALBUMIN (test code = ALB) 2.2 G/DL 3.4-5.0 L CALCIUM (test code = CA) 8.8 MG/DL 8.5-10.1 N PHOSPHOROUS (test code = PHOS) 3.6 MG/DL 2.5-4.9 N ACUTE HEPATITIS [id number] 05:12:00 Test Item Value Reference Range Interpretation Comments AB HEPATITIS A IGM Negative Negative (test code = HAVMAB) AG HEPATITIS B INDEX NonReactive SURFACE (test code = HBSAG) AB HEPATITIS B CORE Negative Negative IGM (test code = HBCMAB) AB HEPATITIS C (test <0.1 0.0-0.9 INFCE R esult Units: s/co code = HCVAB) ratio Negative : < 0.8 Indeterminate: 0.8 - 0.9 Positive: > 0.9 The CDC recommends that a positive HCV an tibody result be follo wed up with a HCV Nucl eic Acid Amplification t est ([id number]).Perfor med At: HD [facility] [id number] [place] [id number] deejay Soto MD Ph:[phone] GLUCOSE BEDSIDE [id number] 20:15:00 Test Item Value Reference Range Interpretation Comments GLUCOSE BEDSIDE TESTING (test code 177 mg/dL 70-110 H = GLUBED) GLUCOSE BEDSIDE [id number] 16:58:00 Test Item Value Reference Range Interpretation Comments GLUCOSE BEDSIDE TESTING (test code 189 mg/dL 70-110 H = GLUBED) GLUCOSE BEDSIDE [id number] 12:17:00 Test Item Value Reference Range Interpretation Comments GLUCOSE BEDSIDE TESTING (test code 149 mg/dL 70-110 H = GLUBED) GLUCOSE BEDSIDE [id number] 08:20:00 Test Item Value Reference Range Interpretation Comments GLUCOSE BEDSIDE TESTING (test code 122 mg/dL 70-110 H = GLUBED) CBC W/AUTO [id number] 08:19:00 Test Item Value Reference Range Interpretation Comments WHITE BLOOD CELL 4.2 K/mm3 3.5-11.0 N (test code = WBC) RED BLOOD CELL (test 2.30 M/mm3 4.70-6.10 L code = RBC) HEMOGLOBIN (test code 7.0 G/DL 12.3-15.9 L = HGB) HEMATOCRIT (test code 22.3 % 35.8-46.7 L = HCT) MEAN CELL VOLUME 97.0 Fl 86.3-98.9 N (test code = MCV) MEAN CELL HGB (test 30.4 pg 28.9-34.4 N code = MCH) MEAN CELL HGB 31.4 G/DL 32.1-34.5 L CONCETRATION (test code = MCHC) RED CELL DISTRIBUTION 13.5 SD 11.5-14.5 N WIDTH (test code = RDW) PLATELET COUNT (test 107 K/mm3 150-450 L code = PLT) MEAN PLATELET VOLUME 10.50 fL 7.0-9.6 H (test code = MPV) NEUTROPHIL % (test 67.4 % 40-76 N code = NT%) IMMATURE GRANULOCYTE 1.0 % 0.0-5.0 N % (test code = IG%) LYMPHOCYTE % (test 11.5 % 20.5-51.1 L code = LY%) MONOCYTE % (test code 9.6 % 1.7-9.3 H = MO%) EOSINOPHIL % (test 10.3 % 0.0-6.0 H code = EO%) BASOPHIL % (test code 0.2 % 0.0-2.0 N = BA%) NUCLEATED RBC % (test 0.0 /100WBC% 0.0-1.0 N code = NRBC%) NEUTROPHIL # (test 2.8 K/mm3 1.8-7.6 N code = NT#) IMMATURE GRANULOCYTE 0.04 x10 3/uL 0.00-0.03 H # (test code = IG#) LYMPHOCYTE # (test 0.5 K/mm3 0.6-3.0 L code = LY#) MONOCYTE # (test code 0.4 K/mm3 0.2-1.5 N = MO#) EOSINOPHIL # (test 0.4 K/mm3 0.0-0.4 N code = EO#) BASOPHIL # (test code 0.0 K/mm3 0.0-0.2 N = BA#) NUCLEATED RBC # (test 0.0 K/mm3 0.00-0.01 N code = NRBC#) MANUAL DIFF REQUIRED NO DIFF/SCN CRITERIA SLIDE R GERTRUDISW (test code = MDIFF) CONSISTA NT WITH AUTO DIFFERENTI AL. BASIC METABOLIC [id number] 07:04:00 Test Item Value Reference Range Interpretation Comments SODIUM (test code = NA) 138 mmol/L 134-147 N POTASSIUM (test code = K) 4.5 mmol/L 3.4-5.0 N CHLORIDE (test code = CL) 107 mmol/L 100-108 N CARBON DIOXIDE (test code = CO2) 24 mmol/L 21-32 N ANION GAP (test code = GAP) 7.0 GAP calc 4.0-15.0 N GLUCOSE (test code = GLU) 129 MG/DL 70-110 H BLOOD UREA NITROGEN (test code = 46 MG/DL 7-18 H BUN) GLOMERULAR FILTRATION RATE (test 33 estGFR >60 L code = GFR) CREATININE (test code = CREAT) 2.1 MG/DL 0.8-1.3 H CALCIUM (test code = CA) 8.6 MG/DL 8.5-10.1 N AG PROSTATE [id number] 07:04:00 Test Item Value Reference Range Interpretation Comments AG PROSTATE SPECIFIC (test code = PSA) CBC W/AUTO [id number] 06:52:00 Test Item Value Reference Range Interpretation Comments WHITE BLOOD CELL (test code = WBC) 4.2 K/mm3 3.5-11.0 N RED BLOOD CELL (test code = RBC) 2.30 M/mm3 4.70-6.10 L HEMOGLOBIN (test code = HGB) 7.0 G/DL 12.3-15.9 L HEMATOCRIT (test code = HCT) 22.3 % 35.8-46.7 L MEAN CELL VOLUME (test code = MCV) 97.0 Fl 86.3-98.9 N MEAN CELL HGB (test code = MCH) 30.4 pg 28.9-34.4 N MEAN CELL HGB CONCETRATION (test 31.4 G/DL 32.1-34.5 L code = MCHC) RED CELL DISTRIBUTION WIDTH (test SD 11.5-14.5 N code = RDW) PLATELET COUNT (test code = PLT) 107 K/mm3 150-450 L MEAN PLATELET VOLUME (test code = fL 7.0-9.6 H MPV) NEUTROPHIL % (test code = NT%) % 40-76 N IMMATURE GRANULOCYTE % (test code % 0.0-5.0 N = IG%) LYMPHOCYTE % (test code = LY%) % 20.5-51.1 L MONOCYTE % (test code = MO%) % 1.7-9.3 H EOSINOPHIL % (test code = EO%) % 0.0-6.0 H BASOPHIL % (test code = BA%) % 0.0-2.0 N NUCLEATED RBC % (test code = /100WBC% 0.0-1.0 N NRBC%) NEUTROPHIL # (test code = NT#) K/mm3 1.8-7.6 N IMMATURE GRANULOCYTE # (test code x10 3/uL 0.00-0.03 H = IG#) LYMPHOCYTE # (test code = LY#) K/mm3 0.6-3.0 L MONOCYTE # (test code = MO#) K/mm3 0.2-1.5 N EOSINOPHIL # (test code = EO#) K/mm3 0.0-0.4 N BASOPHIL # (test code = BA#) K/mm3 0.0-0.2 N NUCLEATED RBC # (test code = K/mm3 0.00-0.01 N NRBC#) MANUAL DIFF REQUIRED (test code = DIFF/SCN CRITERIA MDIFF) GLUCOSE BEDSIDE [id number] 20:43:00 Test Item Value Reference Range Interpretation Comments GLUCOSE BEDSIDE TESTING (test code 163 mg/dL 70-110 H = GLUBED) - DOP ART 1-2 LEVELS [id number] 20:25:00 [facility] 1950 Sex: M Name: MI MCKENNA [facility] : 1950 Age/S: 70 / M [address] [address] [place] Unit #:[id number] Loc: [place] [address] Phys: Alexus Gomez MD Acct: [id number] Dis Date: Status: ADM INPHONE #: [phone] Exam Date: 03/21/20212009 FAX #: Reason: R/O PAD EXAMS: CPT: [id number] [facility] ART 1-2 [facility] [address] HISTORY: Weakness TECHNIQUE: Grayscale B-mode, color-flow, and spectral Doppler analysis of the bilateral lower extremity arterial vasculature was performed. COMPARISON: None available time of interpretation. FINDINGS: Right lower extremity: Triphasic waveforms are noted in the common femoral artery, superficial femoral artery, popliteal artery with monophasic waveforms in the be low the knee arterial structures. Left lower extremity: Triphasic waveforms are noted in the common femoral artery, superficial femoral artery, and popliteal artery with monophasic waveforms in the below the arterial structures. ELLI on the right: 1.2 ELLI on the left: Noncompressible Diffuse soft tissue edema is noted. IMPRESSION: 1. Diminished waveforms below the knee bilaterally with no area of focal high-grade stenosis or long segment occlusion. Calcifications are seen involving the smaller belowthe knee vessels. at 2024 Reported and signed by: Ryne Balderrama M.D. CC: Alexus Gomez MD Technologist: Mejia Guillermo Trnmtb Date/Time: 03/21/2021 (2024) EnderRXC2 PAGE 1 Signed Report Name: MI MCKENNA [facility] : 1950 Age/S: 70 / M [address] Unit #: [id number] Loc: [place] [address] Phys: Alexus Gomez MD Acct: [id number] Dis Date: Status: ADM IN PHONE #: [phone] Exam Date: 2009 FAX #: Reason: R/O PAD EXAMS: CPT: [id number] DOP ART 1-2 LEVELS HERI [address] <Continued> Orig Print D/T: S: 03/21/2021 (2027) Probe: PAGE 2 Signed Report- DUP ART [id number] 20:25:00 [facility] 1950 Sex: M Name: MI MCKENNA [facility] : 1950 Age/S: 70 / M [address] Unit #:[id number] Loc: [place] [address] Phys: Alexus Gomez MD Acct: [id number] Dis Date: Status: ADM INPHONE #: [phone] Exam Date: 03/21/20211749 FAX #: Reason: R/O PAD EXAMS: C[facility]: [id number] [facility] [address] HISTORY: Weakness TECHNIQUE: Grayscale B-mode, color-flow, and spectral Doppler analysis of the bilateral lower extremity arterial vasculature was performed. COMPARISON: None available time of interpretation. FINDINGS: Right lower extremity: Triphasic waveforms are noted in the common femoral artery, superficial femoral artery, popliteal artery with monophasic waveforms in the below theknee arterial structures. Left lower extremity: Triphasic waveforms are noted in the common femoral artery, superficial femoral artery, and popliteal artery with monophasic waveforms in the below the arterial structures. ELLI on the right: 1.2 ELLI on the left: Noncompressible Diffuse soft tissue edema is noted. IMPRESSION: 1. Diminished waveforms below the knee bilaterally with no area of focal high-grade stenosis or long segment occlusion. Calcifications are seen involving the smaller below the kneevessels. at 2024 Reported andsigned by: Ryne Balderrama M.D. CC: Alexus Gomez MD Technologist: Mejia Guillermo Trnscb Date/Time:03/21/2021 (2024) Ivis.RXC2 PAGE 1 Signed Report Name: IM MCKENNA [facility] : 1950 Age/S: 70 / M [address] Unit #: [id number] Loc: [place] [address] Phys: Alexus Gomez MD Acct: [id number] Dis Date: Status: ADM IN PHONE #: [phone] Exam Date: 03/21/2021 1750 FAX #: Reason: R/O PAD EXAMS: CPT: [id number] DUP LE ART HERI [address] <Continued> Orig Print D/T: S: 03/21/2021 (2027) Probe: PAGE 2 Signed Report- DUP VEIN [id number] 18:34:[facility] : 1950 Sex: M Name: MI MCKENNA [facility] : 1950 Age/S: 70 / M [address] Unit #: [id number] Loc: [place] [address] Phys: Elaine Fontaine DPM Acct: [id number] Dis Date: Status: ADM IN PHONE #: [phone] Exam Date: 03/21/2021 1415 FAX #: Reason: R/O DVT EXAMS: CPT: [id number] DUP VEIN [place] [address] LOCATION CODE: H 31 LOWER EXTREMITY VENOUS DUPLEX ULTRASOUND, BILATERAL. HISTORY: Cellulitis COMPARISON: None available TECHNIQUE: Real-time spectral analysis and color flow imaging ultrasound of the lower extremity was obtained from the inguinal ligament down to the ankle in transverse and longitudinal planes. FINDINGS: Duplex color Doppler ultrasound of the common femoral, superficial femoral, popliteal, and posterior tibial veins was obtained. Left leg: The deep venous system is well visualized without evidence of intraluminal filling defect, lack of compressibility, or augmentation. The study is considered negative for deep venous thrombosis. Right leg: Partial flow and compressibility at the distal (lower aspect) right femoral vein. The remaining interrogated veins in the right lower extremity are patent with normal compressibility. Diffuse soft tissue edema is evident. IMPRESSION: 1. Right leg: Partial silhouette compressibility at the distal (lower aspect) right femoralvein, suspicious for partial DVT. 2. Left leg: No evidence of deep venous thrombosis. at 1834 Reported and signed by: Ella Arthur MD CC: Alexus Gomez MD; Elaine Fontaine DPM Technologist: Mejia Nelson te/Time: 03/21/2021 (1833) [email or web address] PAGE 1 Signed Report [facility] 1950 Age/S: 70 / M [address] Unit #: [id number] Loc: [place] [address] Phys: Elaine Fontaine DPM Acct: [id number] Dis Date: Status: ADM IN PHONE #: [phone] Exam Date: 03/21/2021 1655 FAX #: Reason: R/O DVT EXAMS: CPT: [id number] DUP VEIN [place] [address] <Continued> Orig Print D/T: S: 03/21/2021 (1837) Probe: PAGE 2 Signed ReportGLUCOSE BEDSIDE [id number] 16:38:00 Test Item Value Reference Range Interpretation Comments GLUCOSE BEDSIDE TESTING (test code 161 mg/dL 70-110 H = GLUBED) - MRI LOW EXT W/O CONT [id number] 15:50:00 [facility] 1950 Sex: M FAX: Alexus Perez MD Camps: PM St: ADM Name: MI MCKENNA [facility] : 1950 Age/S: 70/M [address] [facility] [place] Unit #: [id number] Loc: [address] [place] [address] Phys: Alexus Gomez MD Acct: [id number] Dis Date: Status: ADM IN PHONE #: [phone] Exam Date: 03/21/2021 1542 FAX #: Reason: CELLULITIS, EVALUATE FOR ABSCESS EXAMS: CPT: [id number] [place] [address] EXAM: - MRI LOW EXT W/O CONTLT HISTORY: CELLULITIS, EVALUATE FOR ABSCESS COMPARISON: None available at time of interpretation. TECHNIQUE: Multi sequential, multiplanar noncontrast MR images of the left leg. FINDINGS: Bones: No areas of confluent T1 hypointensity identified. Soft tissues: No drainable fluid collection. Extensive subcutaneous stranding and edema is noted. Muscles/tendons: Partial fatty atrophy of the leg musculature is noted. IMPRESSION: No osteomyelitis. No drainable fluid collection. Extensive subcutaneous inflammation/edema. at 1550 Repo rted and signed by: CAROLINA HACKETT M.D. CC: Alexus Gomez MD Technologist: Fany Pool, RT(R)(CT); Estelle Barajas, RT(R)(MR) Transcribed Date/Time/By: 03/21/2021 (1550) :Ivis.HV2 Orig Print D/T: S: 03/21/2021 (8772) PAGE 1 Signed Report- RETRO [id number] 14:13:00 [facility] 1950 Sex: M Name: MI MCKENNA [facility] : 1950 Age/S: 70 / M [address] Unit #: [id number] Loc: [place] [address] Phys: Supa Laird MD Acct: [id number] Dis Date: Status: ADM IN PHONE #: [phone] Exam Date: 03/21/2021 1348 FAX #: Reason: eval of ckd vs jitendra EXAMS: CPT: [id number] [facility] RET[facility] LTD [address] Bilateral renal ultrasound. History: eval of ckd vs jitendra Comparison: None at this time Location: H45 The right kidney measures 11.6 and the left kidney measures 12.3 cmin length. There is no hydronephrosis. The echotexture of both kidneys is unremarkable. No renal masses are identified. IMPRESSION: Unremarkable exam. at 1413 Reported and signed by: Jerrell Morales M.D. CC: Alexus Gomez MD; Supa Laird MD Technologist: Mejia Guillermo [facility] [place] Date/Time: 03/21/2021 (1413) [email or web address] PAGE 1 Signed Report Name: MI MCKENNA [facility] : 1950 Age/S: 70 / M [address] [place] [address] Unit #: [id number] Loc: [place] [address] Phys: Supa Laird MD Acct: [id number] Dis Date: Status: ADM IN PHONE #: [phone] Exam Date: 03/21/2021 1341 FAX #: Reason: eval of ckd vs jitendra EXAMS: CPT: [id number] [employer] [facility] [facility] [address] <Continued> Orig Print D/T: S: 03/21/2021 (2227) Probe: PAGE 2 Signed ReportGLUCOSE BEDSIDE [id number] 11:22:00 Test Item Value Reference Range Interpretation Comments GLUCOSE BEDSIDE TESTING (test code 173 mg/dL 70-110 H = GLUBED) FE W/TOTAL IRON BINDING CAP.2021-03-21 07:34:00 Test Item Value Reference Range Interpretation Comments SERUM IRON (test code = IRON) 39 mcG/DL 65-175 L TOTAL IRON BINDING CAPACITY (test 214 mcG/DL 250-450 L code = TIBC) IRON SATURATION (test code = 18 % calc 12-57 N FESAT) [id number] 07:34:00 Test Item Value Reference Range Interpretation Comments TRANSFERRRIN (test code = TRANSF) VITAMIN [id number] 07:34:00 Test Item Value Reference Range Interpretation Comments VITAMIN B12 (test code = VITB12) 948 PG/ML 183-986 N FOLIC [id number] 07:34:00 Test Item Value Reference Range Interpretation Comments FOLIC ACID (test code = FOL) 5.70 NG/ML 3.10-17.50 N [id number] 07:34:00 Test Item Value Reference Range Interpretation Comments FERRITIN (test code = ELIN) 198.4 NG/ML 5.0-323.0 N [id number] 07:25:00 Test Item Value Reference Range Interpretation Comments GLYCOSYLATED HEMOGLOBIN (HA1C) 6.8 % A1C 0.0-5.7 H (test code = GLYHGB) ESTIMATED AVERAGE GLUCOSE (test 148 MG/DLest code = EAG) HGB [id number] 07:00:00 Test Item Value Reference Range Interpretation Comments HEMOGLOBIN (test code = HGB) 6.7 G/DL 12.3-15.9 L HEMATOCRIT (test code = HCT) 20.3 % 35.8-46.7 L - US ABDOMEN [id number] 19:52:00 [facility] 1950 Sex: M Name: MI MCKENNA [facility] : 1950 Age/S: 70 / M [address] [address] Unit #:[id number] Loc: [place] [address] Phys: Alexus Gomez MD Acct: [id number] Dis Date: Status: ADM INPHONE #: [phone] Exam Date: 03/20/20211944 FAX #: Reason: HISTORY OF LIVER DISEASE EXAMS: CPT: [id number] US ABDOMEN LTD 06859 EXAM: - US ABDOMEN LTD INDICATION: HISTORY OF LIVER DISEASE Location: T 18. TECHNIQUE: Real-time grayscale, color-flow and spectral Doppler images were obtained of the abdomen using a curved transducer with attention to the right upper quadrant. COMPARISON: None FINDINGS: Visualized pancreas and aorta: Appear grossly unremarkable. Liver: Liver demonstrates slightly het erogeneousechotexture. It measures 19.4cm in size. Main portal vein appears patent, and demonstrateshepatopedal flow. Bile ducts: Mild intrahepatic or extrahepatic biliary ductal dilatation seen. Theextrahepatic bile duct measures 6mm in diameter. Gallbladder: There are gallstones seen. SonographicMurphy sign is negative. The gallbladder wall measures 3 mm in thickness. Right kidney: Measures 12.9cm in size. No hydronephrosis or nephrolithiasis seen. No sonographic evidence of a mass appreciated. Other structures: No ascites seen. IMPRESSION: Mild hepatomegaly. Slightly echogenic hepatic parenchymal echotexture, suggesting a hepatocellular processes such as steatosis and/or cirrhosis. Cholelithiasis seen without evidence of acute cholecystitis. Mild biliary ductal dilatation, uncertain etiology. If further imaging assessment is clinically warranted, consider correlation with MRCP. at 1952 Reported and signed by: Jose Ron M.D. PAGE 1 Signed Report (CONTINUED) Name: MI MCKENNA [facility] : 1950 Age/S: 70 /M [address] [facility] Unit #: [id number] Loc: [place] [address] Phys: Alexus Gomez MD Acct: [id number] Dis Date: Status: ADM IN PHONE #: [phone] Exam Date: 03/20/20211944 FAX #: Reason: HISTORY OF LIVER DISEASE EXAMS: CPT: [id number] US ABDOMEN LTD [address] <Continued> CC: Alexus Gomez MD Technologist: YURIY Acuña [facility] Date/Time: 03/20/2021 (1951) Ivis.AH26 PAGE 2 Signed Report Name: MI MCKENNA [facility] : 1950 Age/S: 70 / M [address] [address] Unit #:[id number] Loc: [place] [address] Phys: Alexus Gomez MD Acct: [id number] Dis Date: Status: ADM INPHONE #: [phone] Exam Date: 03/20/20211944 FAX #: Reason: HISTORY OF LIVER DISEASE EXAMS: CPT:[id number] ABDOMEN LTD [address] <Continued> Orig Print D/T: S: 03/20/2021 (1955) Probe: PAGE 3Signed Report- XR TOE(S) 2+V [id number] 19:23:00 [facility] 1950 Sex: M Name: MI MCKENNA [facility] : 1950 Age/S: 70 / M [address] [facility] Unit #: [id number] Loc: [place] [address] Phys: Alexus Gomez MD Acct: [id number] Dis Date: Status: ADM IN PHONE #: [phone] Exam Date: 03/20/20211899 FAX #: Reason: R big toe swelling/tender EXAMS: CPT:[id number] XR TOE(S) 2+[place] [address] Fluoro Time: DAP (Gy m2): Air Kerma (mGy): EXAM: - XR FOOT 2 VIEWS RT, - XR TOE(S) 2+V RT INDICATION: evaluate for fracture/tenderness Location: T 18. COMPARISON: None. FINDINGS: Osteopenia diminishes sensitivity. Suspect acute intra-articular fracture involving the distal part of the proximal phalanx of the 1st digit. There is moderate amount of soft tissue swellingseen at the dorsal aspect of the mid to distal foot. IMPRESSION: Osteopenia diminishes sensitivity. Suspect acute fracture involving the proximal phalanx of the 1st digit. Moderate amount of soft tissue swelling. at 1923 Reported and signed by: Jose Ron M.D. CC: Alexus Gomez MD; Briseida Montana MD PAGE 1 Signed Report Name: MI MCKENNA [facility] : 1950 Age/S: 70 / M [address] [address] Unit #: [id number] Loc:[place] [address] Phys: Alexus Gomez MD Acct: [id number] Dis Date: Status: ADM IN PHONE #: [phone] Exam Date: 03/20/2021 1900 FAX #: Reason: R big toe swelling/tender EXAMS: CPT: [id number] XRTOE(S) 2+[place] [address] Fluoro Time: DAP (Gy m2): Air Kerma (mGy): <Continued> Technologist: Liana Silva RT(R) Trnscb Date/Time: 03/20/2021 (1922) Ivis.AH26 Orig Print D/T: S: 03/20/2021 (1925) PAGE 2 Signed Report- XR FOOT 2 VIEWS [id number] 19:23:00 [facility] 1950 Sex: M Name: MI MCKENNA [facility] : 1950 Age/S: 70 / M [address] [place] [address] Unit #: [id number] Loc: [place] [address] Phys: Alexus Gomez MD Acct: [id number] Dis Date: Status: ADM IN PHONE #: [phone] Exam Date: 03/20/2021 1855 FAX #: Reason: evaluate for fracture/tenderness EXAMS: CPT: [id number] XR FO[place] [address] [place] [address] Fluoro Time: DAP (Gy m2): Air Kerma (mGy): EXAM: - XR FOOT 2 VIEWS RT, - XR TOE(S) 2+V RT INDICATION: evaluate for fracture/tenderness Location: T 18. COMPARISON: None. FINDINGS: Osteopenia diminishes sensitivity. Suspect acute intra-articular fracture involving the distal part of the proximal phalanx of the 1st digit. There is moderate amount of soft tissue swelling seen at the dorsal aspect of the mid to distal foot. IMPRESSION: Osteopenia diminishes sensitivity. Suspect acute fracture involving the proximal phalanx of the 1st digit. Moderate amount ofsoft tissue swelling. at 1923 Reported and signed by: Jose Ron M.D. CC: Alexus Gomez MD; Briseida Montana MD PAGE 1 Signed Report Name: MI MCKENNA [facility] : 1950 Age/S: 70 / M [address] [place] [address] Unit #: [id number] Loc: [place] [address] Phys: Alexus Gomez MD Acct: [id number] Dis Date: Status: ADM IN PHONE #: [phone] Exam Date: 03/20/2021 1855 FAX #: Reason: evaluate for fracture/tenderness EXAMS:CPT: [id number] [place]R FO[place] [address] [place] [address] Fluoro Time: DAP (Gy m2): Air Kerma (mGy): <Continued> Technologist: RT Albert(Saul) Mariusz Date/Time: 03/20/2021 (1922) EmeliR.AH26 Orig Print D/T: S: 03/20/2021 (1925) PAGE 2 Signed ReportCBC W/AUTO [id number] 15:58:00 Test Item Value Reference Range Interpretation Comments WHITE BLOOD CELL (test code = 6.2 K/mm3 3.5-11.0 N WBC) RED BLOOD CELL (test code = RBC) 2.42 M/mm3 4.70-6.10 L HEMOGLOBIN (test code = HGB) 7.3 G/DL 12.3-15.9 L HEMATOCRIT (test code = HCT) 22.1 % 35.8-46.7 L MEAN CELL VOLUME (test code = 91.3 Fl 86.3-98.9 N MCV) MEAN CELL HGB (test code = MCH) 30.2 pg 28.9-34.4 N MEAN CELL HGB CONCETRATION (test 33.0 G/DL 32.1-34.5 N code = MCHC) RED CELL DISTRIBUTION WIDTH 13.5 SD 11.5-14.5 N (test code = RDW) PLATELET COUNT (test code = PLT) 134 K/mm3 150-450 L MEAN PLATELET VOLUME (test code 10.20 fL 7.0-9.6 H = MPV) MANUAL DIFF REQUIRED (test code YES DIFF/SCN CRITERIA = MDIFF) WBC [id number] 15:58:00 Test Item Value Reference Range Interpretation Comments SEGMENTED NEUTROPHILS (test code = SEG) % 40-75 LYMPHOCYTE (test code = LYMPH) % 12.6-43.5 CBC W/AUTO [id number] 15:58:00 Test Item Value Reference Range Interpretation Comments WHITE BLOOD CELL (test code = 6.2 K/mm3 3.5-11.0 N WBC) RED BLOOD CELL (test code = RBC) 2.42 M/mm3 4.70-6.10 L HEMOGLOBIN (test code = HGB) 7.3 G/DL 12.3-15.9 L HEMATOCRIT (test code = HCT) 22.1 % 35.8-46.7 L MEAN CELL VOLUME (test code = 91.3 Fl 86.3-98.9 N MCV) MEAN CELL HGB (test code = MCH) 30.2 pg 28.9-34.4 N MEAN CELL HGB CONCETRATION (test 33.0 G/DL 32.1-34.5 N code = MCHC) RED CELL DISTRIBUTION WIDTH 13.5 SD 11.5-14.5 N (test code = RDW) PLATELET COUNT (test code = PLT) 134 K/mm3 150-450 L MEAN PLATELET VOLUME (test code 10.20 fL 7.0-9.6 H = MPV) MANUAL DIFF REQUIRED (test code YES DIFF/SCN CRITERIA = MDIFF) WBC [id number] 15:58:00 Test Item Value Reference Range Interpretation Comments SEGMENTED NEUTROPHILS 83 % 40-75 H (test code = SEG) BAND NEUTROPHIL (test 4 % 0-8 N code = BAND) LYMPHOCYTE (test code = 5 % 12.6-43.5 L LYMPH) MONOCYTE (test code = 5 % 4.2-12.7 N MON) EOSINOPHIL (test code = 2 % 0.0-5.2 N EOS) BASOPHIL (test code = 1 % 0-2.6 N BASO) ANISOCYTOSIS (test code NORMAL NONE = ANISO) PLATELET ESTIMATE (test SLIGHTLY DECREASED ADEQUATE code = PLTEST) THOUSAND PLATELET MORPHOLOGY NORMAL (test code = PLTMORPH) CBC W/AUTO [id number] 15:58:00 Test Item Value Reference Range Interpretation Comments WHITE BLOOD CELL (test code = 6.2 K/mm3 3.5-11.0 N WBC) RED BLOOD CELL (test code = RBC) 2.42 M/mm3 4.70-6.10 L HEMOGLOBIN (test code = HGB) 7.3 G/DL 12.3-15.9 L HEMATOCRIT (test code = HCT) 22.1 % 35.8-46.7 L MEAN CELL VOLUME (test code = 91.3 Fl 86.3-98.9 N MCV) MEAN CELL HGB (test code = MCH) 30.2 pg 28.9-34.4 N MEAN CELL HGB CONCETRATION (test 33.0 G/DL 32.1-34.5 N code = MCHC) RED CELL DISTRIBUTION WIDTH 13.5 SD 11.5-14.5 N (test code = RDW) PLATELET COUNT (test code = PLT) 134 K/mm3 150-450 L MEAN PLATELET VOLUME (test code 10.20 fL 7.0-9.6 H = MPV) MANUAL DIFF REQUIRED (test code YES DIFF/SCN CRITERIA = MDIFF) WBC [id number] 15:58:00 Test Item Value Reference Range Interpretation Comments SEGMENTED NEUTROPHILS (test code = SEG) % 40-75 LYMPHOCYTE (test code = LYMPH) % 12.6-43.5 NT PRO-BRAIN NATRIURETIC [id number] 15:48:00 Test Item Value Reference Range Interpretation Comments NT PRO-BRAIN NATRIURETIC PEPTI 1149 PG/ML 0-100 H (test code = PROBNP) UA RFLX MICR CULT IF [id number] 15:48:00 Test Item Value Reference Range Interpretation Comments UA COLOR (test code = YELLOW discript YEL/STRAW COLU) UA APPEARANCE (test code CLOUDY discript CLEAR A = APPU) UA GLUCOSE DIPSTICK (test NEGATIVE mg/dL NEG code = DGLUU) UA BILIRUBIN DIPSTICK NEGATIVE mg/dL NEG (test code = BILU) UA KETONE DIPSTICK (test NEGATIVE mg/dL NEG code = KETU) UA SPECIFIC GRAVITY (test 1.020 SG 1.005-1.030 code = SGU) UA BLOOD DIPSTICK (test 3+ mg/DL NEG A code = HELEN) UA PH DIPSTICK (test code 6.0 pH UNITS 5.0-7.0 = PERNELL) UA PROTEIN DIPSTICK (test 3+ mg/dL NEG A code = PROU) UA UROBILINIOGEN DIPSTICK 0.2 mg/dL <2.0 (test code = URO) UA NITRITE DIPSTICK (test NEGATIVE SCREEN NEG code = MISTY) UA LEUKOCYTE ESTERASE 2+ Leuk/mcL NEGATIVE A DIPSTICK (test code = LEUU) UA WBC (test code = WBCU) >50 #WBC/HPF 0-3 A UA RBC (test code = RBCU) 20-30 #RBC/HPF 0-3 A UA BACTERIA (test code = 4+ /HPF NONE-TRACE A BACU) UA CULTURE NEEDED? (test YES,WBC>10 & EPI<25 Culture CHK code = UACULT) Criteria Indication for culture: Dysuria/FrequencyLACTIC [id number] 15:45:00 Test Item Value Reference Range Interpretation Comments LACTIC ACID (test code = LACT) 1.3 mmol/L 0.4-2.0 N BASIC METABOLIC [id number] 15:45:00 Test Item Value Reference Range Interpretation Comments SODIUM (test code = NA) 136 mmol/L 134-147 N POTASSIUM (test code = K) 4.6 mmol/L 3.4-5.0 N CHLORIDE (test code = CL) 104 mmol/L 100-108 N CARBON DIOXIDE (test code = 22 mmol/L 21-32 N CO2) ANION GAP (test code = GAP) 10.0 GAP calc 4.0-15.0 N GLUCOSE (test code = GLU) 142 MG/DL 70-110 H BLOOD UREA NITROGEN (test code 52 MG/DL 7-18 H = BUN) GLOMERULAR FILTRATION RATE 27 estGFR >60 L (test code = GFR) CREATININE (test code = CREAT) 2.5 MG/DL 0.8-1.3 H CALCIUM (test code = CA) 8.7 MG/DL 8.5-10.1 N Completed by Nursing: NAJMAHEPATIC FUNCTION [id number] 15:45:00 Test Item Value Reference Range Interpretation Comments TOTAL PROTEIN (test code = PROT) 6.2 G/DL 6.4-8.2 L ALBUMIN (test code = ALB) 2.6 G/DL 3.4-5.0 L BILIRUBIN TOTAL (test code = BILT) 0.40 MG/DL 0.2-1.2 N BILIRUBIN DIRECT (test code = 0.20 MG/DL 0.00-0.30 N BILD) BILIRUBIN INDIRECT (test code = 0.20 MG/DL 0.2-1.2 N BILIND) SGOT/AST (test code = AST) 22 Unit/L 15-37 N SGPT/ALT (test code = ALT) 32 Unit/L 12-78 N ALKALINE PHOSPHATASE TOTAL (test 109 Unit/L 50-136 N code = ALKP) Completed by Nursing: BLTPLBJHWX-[id number] 15:45:00 Test Item Value Reference Range Interpretation Comments TROPONIN-I (test < 0.015 NG/ML 0.000-0.045 N Negative: </= 0.045 code = TROPI) Positive: >/= 0.046 Correlation wit h serial results, other cardiac markers, and cl inical findings is nec essary to determine the c linical significance of this result. Quantit ative results using d ifferent methodologies s hould not be compared to one another as nume rical results may briseida yby method. Completed by Nursing: DEVAN 19 INHOUSE [id number] 15:44:00 Test Item Value Reference Range Interpretation Comments COVID 19 INHOUSE AG NEGATIVE Negative Per grayson facturer, (test code = negative result s should [id number]) be treated aspr esumptive and, if inconsi stent with clinical signs andsymptoms or necessary for patient man agement, should betested with an alternative mol ecular assay. Negative resultsdo not preclude SA RS-CoV-2 infection and s hould not be usedas the s ole basis for patient man agement decisions. Nega tive results should be considered in t he context of apatient's r ecent exposures, hist ory, presence of cli nicalsigns and symptoms co nsistent with COVID-19. BASIC METABOLIC [id number] 15:42:00 Test Item Value Reference Range Interpretation Comments SODIUM (test code = NA) 136 mmol/L 134-147 N POTASSIUM (test code = K) 4.6 mmol/L 3.4-5.0 N CHLORIDE (test code = CL) 104 mmol/L 100-108 N CARBON DIOXIDE (test code = 22 mmol/L 21-32 N CO2) ANION GAP (test code = GAP) 10.0 GAP calc 4.0-15.0 N GLUCOSE (test code = GLU) 142 MG/DL 70-110 H BLOOD UREA NITROGEN (test code 52 MG/DL 7-18 H = BUN) GLOMERULAR FILTRATION RATE 27 estGFR >60 L (test code = GFR) CREATININE (test code = CREAT) 2.5 MG/DL 0.8-1.3 H CALCIUM (test code = CA) 8.7 MG/DL 8.5-10.1 N Completed by Nursing: NOHEPATIC FUNCTION [id number] 15:42:00 Test Item Value Reference Range Interpretation Comments TOTAL PROTEIN (test code = PROT) G/DL 6.4-8.2 ALBUMIN (test code = ALB) 2.6 G/DL 3.4-5.0 L BILIRUBIN TOTAL (test code = BILT) MG/DL 0.2-1.2 BILIRUBIN DIRECT (test code = 0.20 MG/DL 0.00-0.30 N BILD) BILIRUBIN INDIRECT (test code = MG/DL 0.2-1.2 BILIND) SGOT/AST (test code = AST) 22 Unit/L 15-37 N SGPT/ALT (test code = ALT) 32 Unit/L 12-78 N ALKALINE PHOSPHATASE TOTAL (test Unit/L 50-136 code = ALKP) Completed by Nursing: [id number]-[id number] 15:42:00 Test Item Value Reference Range Interpretation Comments TROPONIN-I (test code = TROPI) NG/ML 0.000-0.045 Completed by Nursing: NO- XR CHEST 1 [id number] 15:42:00 [facility] 1950 Sex: M Name: MI MCKENNA [facility] : 1950 Age/S: 70 / M [id number] Unit #: [id number] Loc: [place] [address] Phys: Briseida Motnana MD Acct: [id number] Dis Date: Status: REG ER PHONE #: [phone] Exam Date: 03/20/2021 3742 FAX #: Reason: Code Sepsis EXAMS: CPT: [id number] XR CHEST 1 V 77773 Fluoro Time: DAP (Gy m2): Air Kerma (mGy): Chest Radiograph History: Code Sepsis Comparison: None at this time Location: H45 A single frontal view of the chest is submitted. The heart is within normal limits in size. Pulmonary vasculature is unremarkable. The visualized lung bermeo appear to be free of disease. The bones appear unremarkable. IMPRESSION: There is no radiographic evidence of acute cardiopulmonary disease. at 1542 Reported and signed by: Jerrell Morales M.D. CC: Briseida Montana MD; Arabella HAND PAGE 1 Signed Report Name: MI MCKENNA : 1950 Age/S: 70 / M [id number] Unit #: [id number] Loc: [place] [address] Phys: Briseida Montana MD Acct: [id number] Dis Date: Status: REG ER PHONE #: [phone] Exam Date: 03/20/2021 1539 FAX #: Reason: Code Sepsis EXAMS: CPT: [id number] XR CHEST 1 V 98765 Fluoro Time: DAP (Gy m2): Air Kerma (mGy): <Continued> Technologist: Liana Silva RT(R) Trnscb Date/Time: 03/20/2021 (8872) t.SDR.PMT Orig Print D/T: S: 03/20/2021 (7468) PAGE 2 Signed ReportUA RFLX MICR CULT IF [id number] 15:34:00 Test Item Value Reference Range Interpretation Comments UA COLOR (test code = COLU) YELLOW discript YEL/STRAW UA APPEARANCE (test code = CLOUDY discript CLEAR A APPU) UA GLUCOSE DIPSTICK (test NEGATIVE mg/dL NEG code = DGLUU) UA BILIRUBIN DIPSTICK (test NEGATIVE mg/dL NEG code = BILU) UA KETONE DIPSTICK (test code NEGATIVE mg/dL NEG = KETU) UA SPECIFIC GRAVITY (test 1.020 SG 1.005-1.030 code = SGU) UA BLOOD DIPSTICK (test code 3+ mg/DL NEG A = HELEN) UA PH DIPSTICK (test code = 6.0 pH UNITS 5.0-7.0 PERNELL) UA PROTEIN DIPSTICK (test 3+ mg/dL NEG A code = PROU) UA UROBILINIOGEN DIPSTICK 0.2 mg/dL <2.0 (test code = URO) UA NITRITE DIPSTICK (test NEGATIVE SCREEN NEG code = MISTY) UA LEUKOCYTE ESTERASE 2+ Leuk/mcL NEGATIVE A DIPSTICK (test code = LEUU) UA CULTURE NEEDED? (test code Criteria Culture CHK = UACULT) Indication for culture: Dysuria/FrequencyCBC W/AUTO [id number] 15:32:00 Test Item Value Reference Range Interpretation Comments WHITE BLOOD CELL (test code = WBC) 6.2 K/mm3 3.5-11.0 N RED BLOOD CELL (test code = RBC) 2.42 M/mm3 4.70-6.10 L HEMOGLOBIN (test code = HGB) 7.3 G/DL 12.3-15.9 L HEMATOCRIT (test code = HCT) 22.1 % 35.8-46.7 L MEAN CELL VOLUME (test code = MCV) 91.3 Fl 86.3-98.9 N MEAN CELL HGB (test code = MCH) 30.2 pg 28.9-34.4 N MEAN CELL HGB CONCETRATION (test 33.0 G/DL 32.1-34.5 N code = MCHC) RED CELL DISTRIBUTION WIDTH (test SD 11.5-14.5 N code = RDW) PLATELET COUNT (test code = PLT) 134 K/mm3 150-450 L MEAN PLATELET VOLUME (test code = fL 7.0-9.6 H MPV) NEUTROPHIL % (test code = NT%) % 40-76 H IMMATURE GRANULOCYTE % (test code % 0.0-5.0 N = IG%) LYMPHOCYTE % (test code = LY%) % 20.5-51.1 L MONOCYTE % (test code = MO%) % 1.7-9.3 H EOSINOPHIL % (test code = EO%) % 0.0-6.0 N BASOPHIL % (test code = BA%) % 0.0-2.0 N NUCLEATED RBC % (test code = /100WBC% 0.0-1.0 N NRBC%) NEUTROPHIL # (test code = NT#) K/mm3 1.8-7.6 N IMMATURE GRANULOCYTE # (test code x10 3/uL 0.00-0.03 H = IG#) LYMPHOCYTE # (test code = LY#) K/mm3 0.6-3.0 L MONOCYTE # (test code = MO#) K/mm3 0.2-1.5 N EOSINOPHIL # (test code = EO#) K/mm3 0.0-0.4 N BASOPHIL # (test code = BA#) K/mm3 0.0-0.2 N NUCLEATED RBC # (test code = K/mm3 0.00-0.01 N NRBC#) MANUAL DIFF REQUIRED (test code = DIFF/SCN CRITERIA MDIFF) HGB [id number] 21:02:00 Test Item Value Reference Range Interpretation Comments HEMOGLOBIN (test code = HGB) 7.4 gram/dL 13.0-17.5 L HEMATOCRIT (test code = HCT) 23.3 % 42.0-52.0 L URINE AND [id number] 20:43:00 Test Item Value Reference Range Interpretation Comments UA WBC (test code = no gt See_Comment [Automa didi message] The UA WBC) system which ge nerated this result transmit didi reference range : <=5. The reference range was not used to interpr et this result as james l/abnormal. [facility] AND [id number] 20:43:00 Test Item Value Reference Range Interpretation Comments UA Sq Epi (test code = UA Sq Occasional /LPF Epi) [facility] AND [id number] 20:43:00 Test Item Value Reference Range Interpretation Comments UA Bacteria (test code = UA Occasional /HPF Bacteria) [facility] AND [id number] 20:43:00 Test Item Value Reference Range Interpretation Comments UA Mucus (test code = UA Mucus) Few /LPF [facility] AND [id number] 20:43:00 Test Item Value Reference Range Interpretation Comments UA Turbidity (test code = Clear (07/21/18 3:43 UA Turbidity) PM) [facility] AND [id number] 20:43:00 Test Item Value Reference Range Interpretation Comments UA Spec Grav (test code = UA Spec 1.010 1 Grav) [facility] AND [id number] 20:43:00 Test Item Value Reference Range Interpretation Comments UA Protein (test code = UA Negative mg/dL Protein) [facility] AND [id number] 20:43:00 Test Item Value Reference Range Interpretation Comments UA pH (test code = UA pH) 6.0 1 5.0-8.0 [facility] AND [id number] 20:43:00 Test Item Value Reference Range Interpretation Comments UA Ketones (test code = UA Negative mg/dL Ketones) [facility] AND [id number] 20:43:00 Test Item Value Reference Range Interpretation Comments UA Glucose (test code = UA Negative mg/dL Glucose) [facility] AND [id number] 20:43:00 Test Item Value Reference Range Interpretation Comments UA Bili (test code = Negative *NA*(07/21/18 UA Bili) 3:43 PM) [facility] AND [id number] 20:43:00 Test Item Value Reference Range Interpretation Comments UA Color (test code = UA Color) Ltyellow [facility] AND [id number] 20:43:00 Test Item Value Reference Range Interpretation Comments UA Urobilinogen (test code = UA 2.0 0.1-1.0 Urobilinogen) [facility] AND [id number] 20:43:00 Test Item Value Reference Range Interpretation Comments UA Blood (test code = Negative (07/21/18 3:43 UA Blood) PM) [facility] AND [id number] 20:43:00 Test Item Value Reference Range Interpretation Comments UA Leuk Est (test Negative (07/21/18 3:43 code = UA Leuk Est) PM) [facility] AND [id number] 20:43:00 Test Item Value Reference Range Interpretation Comments UA Nitrite (test code Negative (07/21/18 3:43 = UA Nitrite) PM) [facility] AND [id number] 20:43:00 Test Item Value Reference Range Interpretation Comments UA WBC (test code = no gt See_Comment [Automa didi message] The UA WBC) system which ge nerated this result transmit didi reference range : <=5. The reference range was not used to interpr et this result as james l/abnormal. [facility] AND [id number] 20:43:00 Test Item Value Reference Range Interpretation Comments UA Sq Epi (test code = UA Sq Occasional /LPF Epi) [facility] AND [id number] 20:43:00 Test Item Value Reference Range Interpretation Comments UA Bacteria (test code = UA Occasional /HPF Bacteria) [facility] AND [id number] 20:43:00 Test Item Value Reference Range Interpretation Comments UA Mucus (test code = UA Mucus) Few /LPF [facility] AND [id number] 20:43:00 Test Item Value Reference Range Interpretation Comments UA Turbidity (test code = Clear (07/21/18 3:43 UA Turbidity) PM) [facility] AND [id number] 20:43:00 Test Item Value Reference Range Interpretation Comments UA Spec Grav (test code = UA Spec 1.010 1 Grav) [facility] AND [id number] 20:43:00 Test Item Value Reference Range Interpretation Comments UA Protein (test code = UA Negative mg/dL Protein) [facility] AND [id number] 20:43:00 Test Item Value Reference Range Interpretation Comments UA pH (test code = UA pH) 6.0 1 5.0-8.0 [facility] AND [id number] 20:43:00 Test Item Value Reference Range Interpretation Comments UA Ketones (test code = UA Negative mg/dL Ketones) [facility] AND [id number] 20:43:00 Test Item Value Reference Range Interpretation Comments UA Glucose (test code = UA Negative mg/dL Glucose) [facility] AND [id number] 20:43:00 Test Item Value Reference Range Interpretation Comments UA Bili (test code = Negative *NA*(07/21/18 UA Bili) 3:43 PM) [facility] AND [id number] 20:43:00 Test Item Value Reference Range Interpretation Comments UA Color (test code = UA Color) Ltyellow [facility] AND [id number] 20:43:00 Test Item Value Reference Range Interpretation Comments UA Urobilinogen (test code = UA 2.0 0.1-1.0 Urobilinogen) [facility] AND [id number] 20:43:00 Test Item Value Reference Range Interpretation Comments UA Blood (test code = Negative (07/21/18 3:43 UA Blood) PM) [facility] AND [id number] 20:43:00 Test Item Value Reference Range Interpretation Comments UA Leuk Est (test Negative (07/21/18 3:43 code = UA Leuk Est) PM) [facility] AND [id number] 20:43:00 Test Item Value Reference Range Interpretation Comments UA Nitrite (test code Negative (07/21/18 3:43 = UA Nitrite) PM) [facility] [id number] 19:31:00 Test Item Value Reference Range Interpretation Comments ABO/Rh (test code = ABO/Rh) O POS [facility] [employer] [id number] 19:31:00 Test Item Value Reference Range Interpretation Comments Antibody Scrn (test Negative (07/21/18 2:31 code = Antibody Scrn) PM) [employer] [id number] 19:31:00 Test Item Value Reference Range Interpretation Comments Troponin-I (test code no gt See_Comment [Auto mated message] The = Troponin-I) system which g enerated this result transmit didi reference range : <=0.40. The reference r katie was not used to interpr et this result as james l/abnormal. [employer]2018-09-15 19:31:00 Test Item Value Reference Range Interpretation Comments Total CK (test code = Total CK) 107 12-191 wireWAX2018-09-15 19:31:00 Test Item Value Reference Range Interpretation Comments Lipase Lvl (test code = Lipase Lvl) 320 73-393 [place] [id number] 19:31:00 Test Item Value Reference Range Interpretation Comments Phosphorus (test code = Phosphorus) 3.4 2.5-4.5 wireWAX2018-09-15 19:31:00 Test Item Value Reference Range Interpretation Comments Magnesium Lvl (test code = Magnesium 1.3 1.8-2.4 Lvl) wireWAX2018-09-15 19:31:00 Test Item Value Reference Range Interpretation Comments A/G Ratio (test code = A/G Ratio) 0.8 1 0.7-1.6 wireWAX2018-09-15 19:31:00 Test Item Value Reference Range Interpretation Comments Globulin (test code = Globulin) 3.6 2.7-4.2 wireWAX2018-09-15 19:31:00 Test Item Value Reference Range Interpretation Comments AGAP (test code = AGAP) 13.3 10.0-20.0 wireWAX2018-09-15 19:31:00 Test Item Value Reference Range Interpretation Comments B/C Ratio (test code = B/C Ratio) 17 1 6-25 wireWAX2018-09-15 19:31:00 Test Item Value Reference Range Interpretation Comments eGFR (test code = eGFR) 69 [facility]2018-09-15 19:31:00 Test Item Value Reference Range Interpretation Comments Calcium Lvl (test code = Calcium Lvl) 8.8 8.5-10.5 [place] [id number] 19:31:00 Test Item Value Reference Range Interpretation Comments Chloride Lvl (test code = Chloride Lvl) 105 95-109 [facility]2018-09-15 19:31:00 Test Item Value Reference Range Interpretation Comments Sodium Lvl (test code = Sodium Lvl) 141 135-145 [facility]2018-09-15 19:31:00 Test Item Value Reference Range Interpretation Comments Potassium Lvl (test code = Potassium 4.3 3.5-5.1 Lvl) [facility]2018-09-15 19:31:00 Test Item Value Reference Range Interpretation Comments CO2 (test code = CO2) 27 24-32 [facility]2018-09-15 19:31:00 Test Item Value Reference Range Interpretation Comments Creatinine Lvl (test code = Creatinine 1.09 0.50-1.40 Lvl) [facility]2018-09-15 19:31:00 Test Item Value Reference Range Interpretation Comments Glucose Lvl (test code = Glucose Lvl) 134 70-99 [facility]2018-09-15 19:31:00 Test Item Value Reference Range Interpretation Comments BUN (test code = BUN) 19 7-22 [facility]2018-09-15 19:31:00 Test Item Value Reference Range Interpretation Comments AST (test code = AST) 40 See_Comment [Auto mated message] The system which ge nerated this result transmit didi reference range : <=37. The reference range was not used to interpr et this result as james l/abnormal. [facility]2018-09-15 19:31:00 Test Item Value Reference Range Interpretation Comments Albumin Lvl (test code = Albumin Lvl) 2.8 3.5-5.0 [facility]2018-09-15 19:31:00 Test Item Value Reference Range Interpretation Comments Total Protein (test code = Total 6.4 6.4-8.4 Protein) [facility]2018-09-15 19:31:00 Test Item Value Reference Range Interpretation Comments ALT (test code = ALT) 47 See_Comment [Auto mated message] The system which ge nerated this result transmit didi reference range : <=65. The reference range was not used to interpr et this result as james l/abnormal. [facility]2018-09-15 19:31:00 Test Item Value Reference Range Interpretation Comments Alk Phos (test code = Alk Phos) 118 39-136 [facility]2018-09-15 19:31:00 Test Item Value Reference Range Interpretation Comments Bili Total (test code = Bili Total) 1.1 0.2-1.3 [id number] 19:31:00 Test Item Value Reference Range Interpretation Comments PTT (test code = PTT) 37.6 s 22.9-35.8 [facility] Cent[id number] 19:31:00 Test Item Value Reference Range Interpretation Comments INR (test code = INR) 1.03 1 0.85-1.17 [facility] CenterZwjhstdVLBBPGTFSR2255-98-17 19:31:00 Test Item Value Reference Range Interpretation Comments PT (test code = PT) 13.5 s 12.0-14.7 [facility] CenterQxyuqfeXYEBOMWEDQ2287-82-01 19:31:00 Test Item Value Reference Range Interpretation Comments WBC (test code = WBC) 5.8 3.7-10.4 [facility] CenterRjileoqBFPEDMZWQS8311-17-16 19:31:00 Test Item Value Reference Range Interpretation Comments MCH (test code = MCH) 32.1 pg 27.0-31.0 [facility] CenterBxvipzjUOHZVTFYQL6038-81-73 19:31:00 Test Item Value Reference Range Interpretation Comments MCHC (test code = MCHC) 34.2 32.0-36.0 [facility] CenterRjhpvziYTHQWGXRCE3902-55-43 19:31:00 Test Item Value Reference Range Interpretation Comments Hgb (test code = Hgb) 8.0 14.0-18.0 [facility] CenterJknqklvYQVIRTDLML7819-68-62 19:31:00 Test Item Value Reference Range Interpretation Comments Hct (test code = Hct) 23.3 42.0-54.0 [facility] CenterAfaqpyxUOGFKKVXKU9611-16-50 19:31:00 Test Item Value Reference Range Interpretation Comments MCV (test code = MCV) 93.7 80.0-94.0 [facility] CenterUcokkpnPMAMNJOGBA6325-81-19 19:31:00 Test Item Value Reference Range Interpretation Comments RBC (test code = RBC) 2.49 4.70-6.10 [facility] CenterVfzpqdbAASZZHZDWE6027-23-48 19:31:00 Test Item Value Reference Range Interpretation Comments Platelet (test code = Platelet) 160 133-450 [facility] CenterToguhbsXBJYKYTLUZ6155-25-27 19:31:00 Test Item Value Reference Range Interpretation Comments MPV (test code = MPV) 7.7 7.4-10.4 [facility] CenterUkbtxgpOLEEZDCBXX3797-60-34 19:31:00 Test Item Value Reference Range Interpretation Comments RDW (test code = RDW) 14.5 11.5-14.5 [facility] CenterZbrxkmoURDZUXOMSL6001-91-01 19:31:00 Test Item Value Reference Range Interpretation Comments Basophils # (test code 0.1 See_Comment [Aut omated message] The = Basophils #) system which generated this result tra nsmitted reference range : <=0.2. The reference r katie was not used to int erpret this result as normal/abnormal . [facility] CenterQgyvkvySKNGYBFVMZ5434-17-74 19:31:00 Test Item Value Reference Range Interpretation Comments Eosinophils # (test code 0.2 See_Comment [A utomated message] The = Eosinophils #) system whic h generated this result tra nsmitted reference range : <=0.5. The reference r katie was not used to int erpret this result as normal/abnormal . [facility] CenterNdhgpbnAXGSMGUBAH2994-92-77 19:31:00 Test Item Value Reference Range Interpretation Comments Segs (test code = Segs) 70.2 45.0-75.0 [facility] CenterHeifjnsXVZFZNBEEN0426-16-61 19:31:00 Test Item Value Reference Range Interpretation Comments Neutrophils # (test code = Neutrophils 4.1 1.5-8.1 #) [facility] CenterFncsuzvOYYFOZINNL4104-38-69 19:31:00 Test Item Value Reference Range Interpretation Comments Lymphocytes (test code = Lymphocytes) 12.6 20.0-40.0 [facility] CenterGgetraeKUMPCEXTYX4392-75-04 19:31:00 Test Item Value Reference Range Interpretation Comments Monocytes (test code = Monocytes) 12.7 2.0-12.0 [facility] CenterKqbgcmeDARHIBTRVN0607-48-95 19:31:00 Test Item Value Reference Range Interpretation Comments Eosinophils (test code = 3.6 See_Comment [A utomated message] The Eosinophils) system which ge nerated this result tra nsmitted reference range : <=4.0. The reference r katie was not used to int erpret this result as normal/abnormal . [facility] CenterOxqphzhJQVMBHACWQ4603-50-32 19:31:00 Test Item Value Reference Range Interpretation Comments Monocytes # (test code 0.7 See_Comment [Aut omated message] The = Monocytes #) system which generated this result tra nsmitted reference range : <=0.8. The reference r katie was not used to int erpret this result as normal/abnormal . [facility] CenterCvdtoxxCVUBJYRIKA4940-05-38 19:31:00 Test Item Value Reference Range Interpretation Comments Lymphocytes # (test code = Lymphocytes 0.7 1.0-5.5 #) [facility] CenterXmatoilTZHARLJOJN3131-55-13 19:31:00 Test Item Value Reference Range Interpretation Comments Basophils (test code = 0.9 See_Comment [Aut omated message] The Basophils) system which ge nerated this result tra nsmitted reference range : <=1.0. The reference r katie was not used to int erpret this result as normal/abnormal . [facility] [employer] [id number] 19:31:00 Test Item Value Reference Range Interpretation Comments ABO/Rh (test code = ABO/Rh) O POS [facility] [employer] [id number] 19:31:00 Test Item Value Reference Range Interpretation Comments Antibody Scrn (test Negative (07/21/18 2:31 code = Antibody Scrn) PM) [facility] EMIQGFC0896-69-07 19:31:00 Test Item Value Reference Range Interpretation Comments Troponin-I (test code no gt See_Comment [Auto mated message] The = Troponin-I) system which g enerated this result transmit didi reference range : <=0.40. The reference r katie was not used to interpr et this result as james l/abnormal. [facility] [employer] XYAJVDS2937-59-21 19:31:00 Test Item Value Reference Range Interpretation Comments Total CK (test code = Total CK) 107 12-191 [facility]2018-09-15 19:31:00 Test Item Value Reference Range Interpretation Comments Lipase Lvl (test code = Lipase Lvl) 320 73-393 [facility]2018-09-15 19:31:00 Test Item Value Reference Range Interpretation Comments Phosphorus (test code = Phosphorus) 3.4 2.5-4.5 [facility]2018-09-15 19:31:00 Test Item Value Reference Range Interpretation Comments Magnesium Lvl (test code = Magnesium 1.3 1.8-2.4 Lvl) [facility]2018-09-15 19:31:00 Test Item Value Reference Range Interpretation Comments A/G Ratio (test code = A/G Ratio) 0.8 1 0.7-1.6 [facility]2018-09-15 19:31:00 Test Item Value Reference Range Interpretation Comments Globulin (test code = Globulin) 3.6 2.7-4.2 [facility]2018-09-15 19:31:00 Test Item Value Reference Range Interpretation Comments AGAP (test code = AGAP) 13.3 10.0-20.0 [facility]2018-09-15 19:31:00 Test Item Value Reference Range Interpretation Comments B/C Ratio (test code = B/C Ratio) 17 1 6-25 [facility]2018-09-15 19:31:00 Test Item Value Reference Range Interpretation Comments eGFR (test code = eGFR) 69 [facility]2018-09-15 19:31:00 Test Item Value Reference Range Interpretation Comments Calcium Lvl (test code = Calcium Lvl) 8.8 8.5-10.5 [facility]2018-09-15 19:31:00 Test Item Value Reference Range Interpretation Comments Chloride Lvl (test code = Chloride Lvl) 105 95-109 [facility]2018-09-15 19:31:00 Test Item Value Reference Range Interpretation Comments Sodium Lvl (test code = Sodium Lvl) 141 135-145 [facility]2018-09-15 19:31:00 Test Item Value Reference Range Interpretation Comments Potassium Lvl (test code = Potassium 4.3 3.5-5.1 Lvl) [facility]2018-09-15 19:31:00 Test Item Value Reference Range Interpretation Comments CO2 (test code = CO2) 27 24-32 [facility]2018-09-15 19:31:00 Test Item Value Reference Range Interpretation Comments Creatinine Lvl (test code = Creatinine 1.09 0.50-1.40 Lvl) [facility]2018-09-15 19:31:00 Test Item Value Reference Range Interpretation Comments Glucose Lvl (test code = Glucose Lvl) 134 70-99 [facility]2018-09-15 19:31:00 Test Item Value Reference Range Interpretation Comments BUN (test code = BUN) 19 7-22 [facility]2018-09-15 19:31:00 Test Item Value Reference Range Interpretation Comments AST (test code = AST) 40 See_Comment [Auto mated message] The system which ge nerated this result transmit didi reference range : <=37. The reference range was not used to interpr et this result as james l/abnormal. [facility]2018-09-15 19:31:00 Test Item Value Reference Range Interpretation Comments Albumin Lvl (test code = Albumin Lvl) 2.8 3.5-5.0 [facility]2018-09-15 19:31:00 Test Item Value Reference Range Interpretation Comments Total Protein (test code = Total 6.4 6.4-8.4 Protein) [facility]2018-09-15 19:31:00 Test Item Value Reference Range Interpretation Comments ALT (test code = ALT) 47 See_Comment [Auto mated message] The system which ge nerated this result transmit didi reference range : <=65. The reference range was not used to interpr et this result as james l/abnormal. [facility]2018-09-15 19:31:00 Test Item Value Reference Range Interpretation Comments Alk Phos (test code = Alk Phos) 118 39-136 [facility]2018-09-15 19:31:00 Test Item Value Reference Range Interpretation Comments Bili Total (test code = Bili Total) 1.1 0.2-1.3 [facility]hem[facility]IBKUAJCYQ1149-[facility]-20 19:31:00 Test Item Value Reference Range Interpretation Comments PTT (test code = PTT) 37.6 s 22.9-35.8 [facility]YdnjtkjLBVEJDHWOM6886-81-39 19:31:00 Test Item Value Reference Range Interpretation Comments INR (test code = INR) 1.03 1 0.85-1.17 [facility] CenterLjembpjUZQYWQLXMR5934-82-62 19:31:00 Test Item Value Reference Range Interpretation Comments PT (test code = PT) 13.5 s 12.0-14.7 [facility] CenterWnwqkcsWGIFVDZFJO9551-78-05 19:31:00 Test Item Value Reference Range Interpretation Comments WBC (test code = WBC) 5.8 3.7-10.4 [facility] CenterTbyfbsoHLRIPHKMXB6409-57-07 19:31:00 Test Item Value Reference Range Interpretation Comments MCH (test code = MCH) 32.1 pg 27.0-31.0 [facility] CenterZilvsvpQNTDBBDYMJ1665-31-60 19:31:00 Test Item Value Reference Range Interpretation Comments MCHC (test code = MCHC) 34.2 32.0-36.0 [facility] CenterOswnxvrATHLXPLSBY7376-99-57 19:31:00 Test Item Value Reference Range Interpretation Comments Hgb (test code = Hgb) 8.0 14.0-18.0 [facility] CenterKxljwwzQQRQDALWQX1358-72-64 19:31:00 Test Item Value Reference Range Interpretation Comments Hct (test code = Hct) 23.3 42.0-54.0 [facility] CenterGlusonlKQDEAUIBPK6428-86-41 19:31:00 Test Item Value Reference Range Interpretation Comments MCV (test code = MCV) 93.7 80.0-94.0 [facility] CenterOpxfxwyTFDVKQJQHM5255-51-94 19:31:00 Test Item Value Reference Range Interpretation Comments RBC (test code = RBC) 2.49 4.70-6.10 [facility] CenterHeuhcegKYYCYJVXWE6929-42-98 19:31:00 Test Item Value Reference Range Interpretation Comments Platelet (test code = Platelet) 160 133-450 [facility] CenterTzfgzhmWDFDXPQKUF2253-10-03 19:31:00 Test Item Value Reference Range Interpretation Comments MPV (test code = MPV) 7.7 7.4-10.4 [facility] CenterDyfytlgQLYMDLXVQM5097-35-01 19:31:00 Test Item Value Reference Range Interpretation Comments RDW (test code = RDW) 14.5 11.5-14.5 [facility] CenterFqbmfitHHJKOGBYZK8208-10-35 19:31:00 Test Item Value Reference Range Interpretation Comments Basophils # (test code 0.1 See_Comment [Aut omated message] The = Basophils #) system which generated this result tra nsmitted reference range : <=0.2. The reference r katie was not used to int erpret this result as normal/abnormal . [facility] CenterGylyanhDOYBECSYUC6979-02-84 19:31:00 Test Item Value Reference Range Interpretation Comments Eosinophils # (test code 0.2 See_Comment [A utomated message] The = Eosinophils #) system wh h generated this result tra nsmitted reference range : <=0.5. The reference r katie was not used to int erpret this result as normal/abnormal . [facility] CenterHdfahwnCAFYJSTQWV3450-17-67 19:31:00 Test Item Value Reference Range Interpretation Comments Segs (test code = Segs) 70.2 45.0-75.0 [facility] CenterKsntqqyXWWNJATVYD1872-51-28 19:31:00 Test Item Value Reference Range Interpretation Comments Neutrophils # (test code = Neutrophils 4.1 1.5-8.1 #) [facility] CenterAfhiygfYFLWNLIVNL1330-32-74 19:31:00 Test Item Value Reference Range Interpretation Comments Lymphocytes (test code = Lymphocytes) 12.6 20.0-40.0 [facility] CenterSumjyrbFTLDVBMKVR3143-84-04 19:31:00 Test Item Value Reference Range Interpretation Comments Monocytes (test code = Monocytes) 12.7 2.0-12.0 [facility] CenterKihnalsHHQZYFIHGG2066-51-65 19:31:00 Test Item Value Reference Range Interpretation Comments Eosinophils (test code = 3.6 See_Comment [A utomated message] The Eosinophils) system which ge nerated this result tra nsmitted reference range : <=4.0. The reference r katie was not used to int erpret this result as normal/abnormal . [facility] CenterDidszjaNILAOVFGDL1192-82-47 19:31:00 Test Item Value Reference Range Interpretation Comments Monocytes # (test code 0.7 See_Comment [Aut omated message] The = Monocytes #) system which generated this result tra nsmitted reference range : <=0.8. The reference r katie was not used to int erpret this result as normal/abnormal . [facility] CenterCwdbzavPCSDYNZEEC7621-09-38 19:31:00 Test Item Value Reference Range Interpretation Comments Lymphocytes # (test code = Lymphocytes 0.7 1.0-5.5 #) [facility] CenterQfenptqVTFRQPFYUX4720-00-30 19:31:00 Test Item Value Reference Range Interpretation Comments Basophils (test code = 0.9 See_Comment [Aut omated message] The Basophils) system which ge nerated this result tra nsmitted reference range : <=1.0. The reference r katie was not used to int erpret this result as normal/abnormal . [facility]2018-09-13 05:40:00 Test Item Value Reference Range Interpretation Comments Calcium Lvl (test code = Calcium Lvl) 8.3 8.5-10.5 [facility]2018-09-13 05:40:00 Test Item Value Reference Range Interpretation Comments AGAP (test code = AGAP) 13.6 10.0-20.0 [facility]2018-09-13 05:40:00 Test Item Value Reference Range Interpretation Comments eGFR (test code = eGFR) 67 [facility]2018-09-13 05:40:00 Test Item Value Reference Range Interpretation Comments CO2 (test code = CO2) 24 24-32 [facility]2018-09-13 05:40:00 Test Item Value Reference Range Interpretation Comments Chloride Lvl (test code = Chloride Lvl) 109 95-109 [facility]2018-09-13 05:40:00 Test Item Value Reference Range Interpretation Comments Potassium Lvl (test code = Potassium 4.6 3.5-5.1 Lvl) [facility]2018-09-13 05:40:00 Test Item Value Reference Range Interpretation Comments Sodium Lvl (test code = Sodium Lvl) 142 135-145 [facility]2018-09-13 05:40:00 Test Item Value Reference Range Interpretation Comments Creatinine Lvl (test code = Creatinine 1.12 0.50-1.40 Lvl) [facility]2018-09-13 05:40:00 Test Item Value Reference Range Interpretation Comments BUN (test code = BUN) 32 7-22 [facility]2018-09-13 05:40:00 Test Item Value Reference Range Interpretation Comments Glucose Lvl (test code = Glucose Lvl) 235 70-99 [facility] CenterNkuvkgnKHFIVVUHYK1934-48-64 05:40:00 Test Item Value Reference Range Interpretation Comments Lymphocytes (test code = Lymphocytes) 16.2 20.0-40.0 [facility] CenterEafcbzhCDEABGUCTY5905-86-40 05:40:00 Test Item Value Reference Range Interpretation Comments Segs (test code = Segs) 68.4 45.0-75.0 [facility] CenterOjdgxbgBLJEVKENKX9811-45-52 05:40:00 Test Item Value Reference Range Interpretation Comments Eosinophils (test code = 3.9 See_Comment [A utomated message] The Eosinophils) system which ge nerated this result tra nsmitted reference range : <=4.0. The reference r katie was not used to int erpret this result as normal/abnormal . [facility] CenterGvjahdqCGNFVYQPVZ8738-17-01 05:40:00 Test Item Value Reference Range Interpretation Comments Monocytes (test code = Monocytes) 10.6 2.0-12.0 [facility] CenterPyknrerWJWXEMIHRU8964-03-48 05:40:00 Test Item Value Reference Range Interpretation Comments Lymphocytes # (test code = Lymphocytes 0.6 1.0-5.5 #) [facility] CenterMglazxwZICHLJSTBP6267-44-41 05:40:00 Test Item Value Reference Range Interpretation Comments Basophils (test code = 0.9 See_Comment [Aut omated message] The Basophils) system which ge nerated this result tra nsmitted reference range : <=1.0. The reference r katie was not used to int erpret this result as normal/abnormal . [facility] CenterPnpqlqiZXORODUKOB4343-17-78 05:40:00 Test Item Value Reference Range Interpretation Comments Neutrophils # (test code = Neutrophils 2.5 1.5-8.1 #) [facility] CenterJpbcisvUMPEQSUIXR9844-63-68 05:40:00 Test Item Value Reference Range Interpretation Comments Monocytes # (test code 0.4 See_Comment [Aut omated message] The = Monocytes #) system which generated this result tra nsmitted reference range : <=0.8. The reference r katie was not used to int erpret this result as normal/abnormal . [facility] CenterQctykbpNTLTFEIJAH0766-34-09 05:40:00 Test Item Value Reference Range Interpretation Comments Eosinophils # (test code 0.1 See_Comment [A utomated message] The = Eosinophils #) system whic h generated this result tra nsmitted reference range : <=0.5. The reference r katie was not used to int erpret this result as normal/abnormal . [facility] CenterOxadekiZEEMVWQXQD8394-48-43 05:40:00 Test Item Value Reference Range Interpretation Comments MCH (test code = MCH) 31.7 pg 27.0-31.0 [facility] CenterDdobzmxRCVJTAYHIK5442-79-48 05:40:00 Test Item Value Reference Range Interpretation Comments MCHC (test code = MCHC) 34.3 32.0-36.0 [facility] CenterXyffdejAALPPIHILC8514-33-90 05:40:00 Test Item Value Reference Range Interpretation Comments RDW (test code = RDW) 13.8 11.5-14.5 [facility] CenterLfmhqqhAGNZQPPRSW5668-29-02 05:40:00 Test Item Value Reference Range Interpretation Comments MCV (test code = MCV) 92.3 80.0-94.0 [facility] CenterSsmtwiwPXPHXBKGBS5435-17-37 05:40:00 Test Item Value Reference Range Interpretation Comments Hct (test code = Hct) 19.8 42.0-54.0 [facility] CenterQyslkckHLAQULOIPW9921-28-88 05:40:00 Test Item Value Reference Range Interpretation Comments Hgb (test code = Hgb) 6.8 14.0-18.0 [facility] CenterCgxnducRRAYZIGMXR3926-04-98 05:40:00 Test Item Value Reference Range Interpretation Comments Platelet (test code = Platelet) 113 133-450 [facility] CenterXlahaopXTWBTGILHW6759-78-66 05:40:00 Test Item Value Reference Range Interpretation Comments MPV (test code = MPV) 9.1 7.4-10.4 [facility] CenterBqhcfsnWXQCBQHDOU0568-76-57 05:40:00 Test Item Value Reference Range Interpretation Comments WBC (test code = WBC) 3.7 3.7-10.4 [facility] CenterUqkrfmaSERKMHIWRX5718-26-02 05:40:00 Test Item Value Reference Range Interpretation Comments RBC (test code = RBC) 2.15 4.70-6.10 [facility]2018-09-13 05:40:00 Test Item Value Reference Range Interpretation Comments Calcium Lvl (test code = Calcium Lvl) 8.3 8.5-10.5 [facility] VPENW8805-32-72 05:40:00 Test Item Value Reference Range Interpretation Comments AGAP (test code = AGAP) 13.6 10.0-20.0 [facility]2018-09-13 05:40:00 Test Item Value Reference Range Interpretation Comments eGFR (test code = eGFR) 67 [place] 138678-09-13 05:40:00 Test Item Value Reference Range Interpretation Comments CO2 (test code = CO2) 24 24-32 [place] 138678-09-13 05:40:00 Test Item Value Reference Range Interpretation Comments Chloride Lvl (test code = Chloride Lvl) 109 95-109 [facility]2018-09-13 05:40:00 Test Item Value Reference Range Interpretation Comments Potassium Lvl (test code = Potassium 4.6 3.5-5.1 Lvl) [facility]2018-09-13 05:40:00 Test Item Value Reference Range Interpretation Comments Sodium Lvl (test code = Sodium Lvl) 142 135-145 [facility]2018-09-13 05:40:00 Test Item Value Reference Range Interpretation Comments Creatinine Lvl (test code = Creatinine 1.12 0.50-1.40 Lvl) [facility]2018-09-13 05:40:00 Test Item Value Reference Range Interpretation Comments BUN (test code = BUN) 32 7-22 [facility]2018-09-13 05:40:00 Test Item Value Reference Range Interpretation Comments Glucose Lvl (test code = Glucose Lvl) 235 70-99 [facility] CenterExuiurbNMDRJKARJQ5112-60-90 05:40:00 Test Item Value Reference Range Interpretation Comments Lymphocytes (test code = Lymphocytes) 16.2 20.0-40.0 [facility] CenterUgltxezIAKJEPEJEU5420-85-07 05:40:00 Test Item Value Reference Range Interpretation Comments Segs (test code = Segs) 68.4 45.0-75.0 [facility] CenterUezelvsIRNXGRAEIO0047-30-71 05:40:00 Test Item Value Reference Range Interpretation Comments Eosinophils (test code = 3.9 See_Comment [A utomated message] The Eosinophils) system which ge nerated this result tra nsmitted reference range : <=4.0. The reference r katie was not used to int erpret this result as normal/abnormal . [facility] CenterEkvisgmQDDTNGSIPS2849-68-98 05:40:00 Test Item Value Reference Range Interpretation Comments Monocytes (test code = Monocytes) 10.6 2.0-12.0 [facility] CenterBzorsqaOBATRVCKKM0480-63-47 05:40:00 Test Item Value Reference Range Interpretation Comments Lymphocytes # (test code = Lymphocytes 0.6 1.0-5.5 #) [facility] CenterIrtecbkKBKFSPLOWI3266-24-47 05:40:00 Test Item Value Reference Range Interpretation Comments Basophils (test code = 0.9 See_Comment [Aut omated message] The Basophils) system which ge nerated this result tra nsmitted reference range : <=1.0. The reference r katie was not used to int erpret this result as normal/abnormal . [facility] CenterYxodjgdTRDQOSVFJU6974-21-26 05:40:00 Test Item Value Reference Range Interpretation Comments Neutrophils # (test code = Neutrophils 2.5 1.5-8.1 #) [facility] CenterGfbpldtKZJPMDYQAO7963-33-73 05:40:00 Test Item Value Reference Range Interpretation Comments Monocytes # (test code 0.4 See_Comment [Aut omated message] The = Monocytes #) system which generated this result tra nsmitted reference range : <=0.8. The reference r katie was not used to int erpret this result as normal/abnormal . [facility] CenterBxfufyqHMLZWZGRIO4217-94-39 05:40:00 Test Item Value Reference Range Interpretation Comments Eosinophils # (test code 0.1 See_Comment [A utomated message] The = Eosinophils #) system whic h generated this result tra nsmitted reference range : <=0.5. The reference r katie was not used to int erpret this result as normal/abnormal . [facility] CenterBdyuvxsJOWMIJNXZO2244-69-43 05:40:00 Test Item Value Reference Range Interpretation Comments MCH (test code = MCH) 31.7 pg 27.0-31.0 [facility] CenterGjcbpedMPWESPSLIJ5654-18-56 05:40:00 Test Item Value Reference Range Interpretation Comments MCHC (test code = MCHC) 34.3 32.0-36.0 [facility] CenterKqprhkeGAZVJLLVWW9426-45-20 05:40:00 Test Item Value Reference Range Interpretation Comments RDW (test code = RDW) 13.8 11.5-14.5 [facility] CenterBxthboyCKRTQMJAUT5267-68-59 05:40:00 Test Item Value Reference Range Interpretation Comments MCV (test code = MCV) 92.3 80.0-94.0 [facility] CenterDqaoodpHIPFHDUNTD4012-50-15 05:40:00 Test Item Value Reference Range Interpretation Comments Hct (test code = Hct) 19.8 42.0-54.0 [facility] CenterEqjnadyKHRMHOHTCB2461-84-31 05:40:00 Test Item Value Reference Range Interpretation Comments Hgb (test code = Hgb) 6.8 14.0-18.0 [facility] CenterRycgyvrHFRCSMZAJI2703-94-24 05:40:00 Test Item Value Reference Range Interpretation Comments Platelet (test code = Platelet) 113 133-450 [facility] CenterGqopxigULBZFGVCAN0297-65-45 05:40:00 Test Item Value Reference Range Interpretation Comments MPV (test code = MPV) 9.1 7.4-10.4 [facility] CenterKdzgehhENDHEFBLWB2513-24-28 05:40:00 Test Item Value Reference Range Interpretation Comments WBC (test code = WBC) 3.7 3.7-10.4 [facility] CenterUsbqotbAULTQAGLEJ7313-00-03 05:40:00 Test Item Value Reference Range Interpretation Comments RBC (test code = RBC) 2.15 4.70-6.10 [facility]2018-09-12 05:10:00 Test Item Value Reference Range Interpretation Comments eGFR (test code = eGFR) 44 [facility]2018-09-12 05:10:00 Test Item Value Reference Range Interpretation Comments Calcium Lvl (test code = Calcium Lvl) 7.7 8.5-10.5 [facility]2018-09-12 05:10:00 Test Item Value Reference Range Interpretation Comments CO2 (test code = CO2) 23 24-32 [facility]2018-09-12 05:10:00 Test Item Value Reference Range Interpretation Comments AGAP (test code = AGAP) 15.1 10.0-20.0 [facility]2018-09-12 05:10:00 Test Item Value Reference Range Interpretation Comments Chloride Lvl (test code = Chloride Lvl) 104 95-109 [facility]2018-09-12 05:10:00 Test Item Value Reference Range Interpretation Comments Potassium Lvl (test code = Potassium 4.1 3.5-5.1 Lvl) [facility]2018-09-12 05:10:00 Test Item Value Reference Range Interpretation Comments Creatinine Lvl (test code = Creatinine 1.59 0.50-1.40 Lvl) [facility]2018-09-12 05:10:00 Test Item Value Reference Range Interpretation Comments Sodium Lvl (test code = Sodium Lvl) 138 135-145 [facility]2018-09-12 05:10:00 Test Item Value Reference Range Interpretation Comments Glucose Lvl (test code = Glucose Lvl) 233 70-99 [facility]2018-09-12 05:10:00 Test Item Value Reference Range Interpretation Comments BUN (test code = BUN) 45 7-22 [facility] CenterQfngbjjHKUUIPIOQN4048-45-38 05:10:00 Test Item Value Reference Range Interpretation Comments Eosinophils (test code = 3.9 See_Comment [A utomated message] The Eosinophils) system which ge nerated this result tra nsmitted reference range : <=4.0. The reference r katie was not used to int erpret this result as normal/abnormal . [facility] CenterCthgnnuXKEFICCXFX8097-46-61 05:10:00 Test Item Value Reference Range Interpretation Comments Segs (test code = Segs) 69.8 45.0-75.0 [facility] CenterKqxgutyNDWJWFRZFB1737-80-19 05:10:00 Test Item Value Reference Range Interpretation Comments Monocytes (test code = Monocytes) 9.9 2.0-12.0 [facility] CenterEwfxirlUOUBKIGVMH7751-62-85 05:10:00 Test Item Value Reference Range Interpretation Comments Lymphocytes (test code = Lymphocytes) 15.5 20.0-40.0 [facility] CenterWcwalwiAKCYCZEJXU4952-59-41 05:10:00 Test Item Value Reference Range Interpretation Comments Neutrophils # (test code = Neutrophils 2.6 1.5-8.1 #) [facility] CenterYxdttyaZDLSENDCZC7443-75-91 05:10:00 Test Item Value Reference Range Interpretation Comments Monocytes # (test code 0.4 See_Comment [Aut omated message] The = Monocytes #) system which generated this result tra nsmitted reference range : <=0.8. The reference r katie was not used to int erpret this result as normal/abnormal . [facility] CenterShvacscDTLZFVNFFO6850-38-32 05:10:00 Test Item Value Reference Range Interpretation Comments Lymphocytes # (test code = Lymphocytes 0.6 1.0-5.5 #) [facility] CenterAbiuercXKRMTVJLUX9597-60-94 05:10:00 Test Item Value Reference Range Interpretation Comments Basophils (test code = 0.9 See_Comment [Aut omated message] The Basophils) system which ge nerated this result tra nsmitted reference range : <=1.0. The reference r katie was not used to int erpret this result as normal/abnormal . [facility] CenterJcuygttREWNCCCVNH9630-08-18 05:10:00 Test Item Value Reference Range Interpretation Comments Eosinophils # (test code 0.1 See_Comment [A utomated message] The = Eosinophils #) system whic h generated this result tra nsmitted reference range : <=0.5. The reference r katie was not used to int erpret this result as normal/abnormal . [facility] CenterIxpjlmoXQKHWEVYSX6627-20-41 05:10:00 Test Item Value Reference Range Interpretation Comments MPV (test code = MPV) 9.3 7.4-10.4 [facility] CenterUwtweshHIJFNKSAJX8317-99-11 05:10:00 Test Item Value Reference Range Interpretation Comments Platelet (test code = Platelet) 90 133-450 [facility] CenterHmgruwlZEPCBNOYQB3736-39-42 05:10:00 Test Item Value Reference Range Interpretation Comments RDW (test code = RDW) 13.6 11.5-14.5 [facility] CenterYohmxbfTJPNQPKCNX6865-02-86 05:10:00 Test Item Value Reference Range Interpretation Comments MCV (test code = MCV) 91.4 80.0-94.0 [facility] CenterAgfehjhEZKUDWBDSA2897-80-66 05:10:00 Test Item Value Reference Range Interpretation Comments MCHC (test code = MCHC) 34.0 32.0-36.0 [facility] CenterZcmhjxjSATUQJZQDX0481-01-47 05:10:00 Test Item Value Reference Range Interpretation Comments MCH (test code = MCH) 31.1 pg 27.0-31.0 [facility] CenterNewxfqxGSXAQXUZOM3473-55-77 05:10:00 Test Item Value Reference Range Interpretation Comments Hgb (test code = Hgb) 6.7 14.0-18.0 [facility] CenterHuommvbOUEVCPGCQY6269-94-35 05:10:00 Test Item Value Reference Range Interpretation Comments Hct (test code = Hct) 19.6 42.0-54.0 [facility]XkxmlziSYWYPQCRNM1521-89-19 05:10:00 Test Item Value Reference Range Interpretation Comments WBC (test code = WBC) 3.7 3.7-10.4 [facility] CenterLegbptaRJFDCPTUHZ8522-32-45 05:10:00 Test Item Value Reference Range Interpretation Comments RBC (test code = RBC) 2.14 4.70-6.10 [facility]2018-09-12 05:10:00 Test Item Value Reference Range Interpretation Comments eGFR (test code = eGFR) 44 [facility]2018-09-12 05:10:00 Test Item Value Reference Range Interpretation Comments Calcium Lvl (test code = Calcium Lvl) 7.7 8.5-10.5 [facility]2018-09-12 05:10:00 Test Item Value Reference Range Interpretation Comments CO2 (test code = CO2) 23 24-32 [facility]2018-09-12 05:10:00 Test Item Value Reference Range Interpretation Comments AGAP (test code = AGAP) 15.1 10.0-20.0 [facility]2018-09-12 05:10:00 Test Item Value Reference Range Interpretation Comments Chloride Lvl (test code = Chloride Lvl) 104 95-109 [facility]2018-09-12 05:10:00 Test Item Value Reference Range Interpretation Comments Potassium Lvl (test code = Potassium 4.1 3.5-5.1 Lvl) [facility]2018-09-12 05:10:00 Test Item Value Reference Range Interpretation Comments Creatinine Lvl (test code = Creatinine 1.59 0.50-1.40 Lvl) [facility]2018-09-12 05:10:00 Test Item Value Reference Range Interpretation Comments Sodium Lvl (test code = Sodium Lvl) 138 135-145 [facility]2018-09-12 05:10:00 Test Item Value Reference Range Interpretation Comments Glucose Lvl (test code = Glucose Lvl) 233 70-99 [facility]2018-09-12 05:10:00 Test Item Value Reference Range Interpretation Comments BUN (test code = BUN) 45 7-22 [facility] CenterWhpyejlVORJWOTYED7172-86-47 05:10:00 Test Item Value Reference Range Interpretation Comments Eosinophils (test code = 3.9 See_Comment [A utomated message] The Eosinophils) system which ge nerated this result tra nsmitted reference range : <=4.0. The reference r katie was not used to int erpret this result as normal/abnormal . [facility] CenterTtclvcnWLVMJZCWSQ8756-38-21 05:10:00 Test Item Value Reference Range Interpretation Comments Segs (test code = Segs) 69.8 45.0-75.0 [facility] CenterKdqpiaxSDWOTZPBIF2552-83-82 05:10:00 Test Item Value Reference Range Interpretation Comments Monocytes (test code = Monocytes) 9.9 2.0-12.0 [facility] CenterTciprzuMJQCLYSCCT8445-04-89 05:10:00 Test Item Value Reference Range Interpretation Comments Lymphocytes (test code = Lymphocytes) 15.5 20.0-40.0 [facility] CenterTlnflqvWGQPEYVSRA3884-40-44 05:10:00 Test Item Value Reference Range Interpretation Comments Neutrophils # (test code = Neutrophils 2.6 1.5-8.1 #) [facility] CenterMouebplWYILJZZLSF5872-75-58 05:10:00 Test Item Value Reference Range Interpretation Comments Monocytes # (test code 0.4 See_Comment [Aut omated message] The = Monocytes #) system which generated this result tra nsmitted reference range : <=0.8. The reference r katie was not used to int erpret this result as normal/abnormal . [facility] CenterLelmmfhVOPWADPFRZ7428-33-18 05:10:00 Test Item Value Reference Range Interpretation Comments Lymphocytes # (test code = Lymphocytes 0.6 1.0-5.5 #) [facility] CenterRbbkmpoAVDRZPOHIE7930-97-73 05:10:00 Test Item Value Reference Range Interpretation Comments Basophils (test code = 0.9 See_Comment [Aut omated message] The Basophils) system which ge nerated this result tra nsmitted reference range : <=1.0. The reference r katie was not used to int erpret this result as normal/abnormal . [facility] CenterUqacksvLQVCDQDVBO2410-81-62 05:10:00 Test Item Value Reference Range Interpretation Comments Eosinophils # (test code 0.1 See_Comment [A utomated message] The = Eosinophils #) system whic h generated this result tra nsmitted reference range : <=0.5. The reference r katie was not used to int erpret this result as normal/abnormal . [facility] CenterYztjmpeEYHMPGCCFN9255-72-73 05:10:00 Test Item Value Reference Range Interpretation Comments MPV (test code = MPV) 9.3 7.4-10.4 [facility] CenterJjeksqgUFUBYQUMGR6209-89-53 05:10:00 Test Item Value Reference Range Interpretation Comments Platelet (test code = Platelet) 90 133-450 [facility] CenterYfrvcuwIXYFDVAXRU4914-21-20 05:10:00 Test Item Value Reference Range Interpretation Comments RDW (test code = RDW) 13.6 11.5-14.5 [facility] CenterJxvhcqwAAIVOTTICP7389-40-67 05:10:00 Test Item Value Reference Range Interpretation Comments MCV (test code = MCV) 91.4 80.0-94.0 [facility] CenterJayhgzfWTXLVGUPPC2197-73-06 05:10:00 Test Item Value Reference Range Interpretation Comments MCHC (test code = MCHC) 34.0 32.0-36.0 [facility] CenterZfrpmtcJNIEWFZWGU5526-79-22 05:10:00 Test Item Value Reference Range Interpretation Comments MCH (test code = MCH) 31.1 pg 27.0-31.0 [facility] CenterCmsgxsnJUKIPBPFUM9987-48-70 05:10:00 Test Item Value Reference Range Interpretation Comments Hgb (test code = Hgb) 6.7 14.0-18.0 [facility] CenterVljmzjcXRWADAEBJF2974-39-68 05:10:00 Test Item Value Reference Range Interpretation Comments Hct (test code = Hct) 19.6 42.0-54.0 [facility] CenterRovfawfLZDNMIAAKY3318-15-09 05:10:00 Test Item Value Reference Range Interpretation Comments WBC (test code = WBC) 3.7 3.7-10.4 [facility] CenterOlglydbVSJQEREBMN4001-39-96 05:10:00 Test Item Value Reference Range Interpretation Comments RBC (test code = RBC) 2.14 4.70-6.10 [facility]2018-09-11 06:15:00 Test Item Value Reference Range Interpretation Comments eGFR (test code = eGFR) 28 [facility]2018-09-11 06:15:00 Test Item Value Reference Range Interpretation Comments Calcium Lvl (test code = Calcium Lvl) 7.2 8.5-10.5 [facility]2018-09-11 06:15:00 Test Item Value Reference Range Interpretation Comments Sodium Lvl (test code = Sodium Lvl) 135 135-145 [facility]2018-09-11 06:15:00 Test Item Value Reference Range Interpretation Comments Potassium Lvl (test code = Potassium 4.4 3.5-5.1 Lvl) [facility]2018-09-11 06:15:00 Test Item Value Reference Range Interpretation Comments CO2 (test code = CO2) [facility]2018-09-11 06:15:00 Test Item Value Reference Range Interpretation Comments Chloride Lvl (test code = Chloride Lvl) 101 95-109 [facility]2018-09-11 06:15:00 Test Item Value Reference Range Interpretation Comments AGAP (test code = AGAP) 16.4 10.0-20.0 [facility]2018-09-11 06:15:00 Test Item Value Reference Range Interpretation Comments eGFR (test code = eGFR) 28 [facility]2018-09-11 06:15:00 Test Item Value Reference Range Interpretation Comments Calcium Lvl (test code = Calcium Lvl) 7.2 8.5-10.5 [facility]2018-09-11 06:15:00 Test Item Value Reference Range Interpretation Comments Sodium Lvl (test code = Sodium Lvl) 135 135-145 [facility]2018-09-11 06:15:00 Test Item Value Reference Range Interpretation Comments Potassium Lvl (test code = Potassium 4.4 3.5-5.1 Lvl) [facility]2018-09-11 06:15:00 Test Item Value Reference Range Interpretation Comments CO2 (test code = CO2) [facility]2018-09-11 06:15:00 Test Item Value Reference Range Interpretation Comments Chloride Lvl (test code = Chloride Lvl) 101 95-109 [facility]2018-09-11 06:15:00 Test Item Value Reference Range Interpretation Comments AGAP (test code = AGAP) 16.4 10.0-20.0 [facility]2018-09-11 06:15:00 Test Item Value Reference Range Interpretation Comments Glucose Lvl (test code = Glucose Lvl) 288 70-99 [facility]2018-09-11 06:15:00 Test Item Value Reference Range Interpretation Comments Glucose Lvl (test code = Glucose Lvl) 288 70-99 [facility]2018-09-11 06:15:00 Test Item Value Reference Range Interpretation Comments Creatinine Lvl (test code = Creatinine 2.29 0.50-1.40 Lvl) [facility]2018-09-11 06:15:00 Test Item Value Reference Range Interpretation Comments BUN (test code = BUN) 44 7-22 [facility] CenterGwweuxyIRWKUCTCAR9883-50-94 06:15:00 Test Item Value Reference Range Interpretation Comments Eosinophils # (test code 0.1 See_Comment [A utomated message] The = Eosinophils #) system whic h generated this result tra nsmitted reference range : <=0.5. The reference r katie was not used to int erpret this result as normal/abnormal . [facility] CenterBsfekulUGWPYFBCXQ1000-33-89 06:15:00 Test Item Value Reference Range Interpretation Comments Lymphocytes # (test code = Lymphocytes 0.7 1.0-5.5 #) [facility] CenterVsgrcnzBVMTMBRPQH7925-40-67 06:15:00 Test Item Value Reference Range Interpretation Comments Monocytes # (test code 0.4 See_Comment [Aut omated message] The = Monocytes #) system which generated this result tra nsmitted reference range : <=0.8. The reference r katie was not used to int erpret this result as normal/abnormal . [facility] CenterJzaalceBOQLTTAHFU9878-35-59 06:15:00 Test Item Value Reference Range Interpretation Comments Basophils (test code = 0.8 See_Comment [Aut omated message] The Basophils) system which ge nerated this result tra nsmitted reference range : <=1.0. The reference r katie was not used to int erpret this result as normal/abnormal . [facility] CenterRppmvpcGKYPPCWNRL5902-54-39 06:15:00 Test Item Value Reference Range Interpretation Comments Neutrophils # (test code = Neutrophils 2.1 1.5-8.1 #) [facility] CenterWpdjcvdUPLQUOQXTX1028-18-02 06:15:00 Test Item Value Reference Range Interpretation Comments Lymphocytes (test code = Lymphocytes) 20.6 20.0-40.0 [facility] CenterYuctdueUXDZQMHSZS9690-42-26 06:15:00 Test Item Value Reference Range Interpretation Comments Segs (test code = Segs) 63.3 45.0-75.0 [facility] CenterKsoonaeOAUNLGCFCU6939-10-69 06:15:00 Test Item Value Reference Range Interpretation Comments Monocytes (test code = Monocytes) 11.2 2.0-12.0 [facility]2018-09-11 06:15:00 Test Item Value Reference Range Interpretation Comments Creatinine Lvl (test code = Creatinine 2.29 0.50-1.40 Lvl) [facility] CenterOglliruEQNVVVXNXR6376-03-44 06:15:00 Test Item Value Reference Range Interpretation Comments Eosinophils (test code = 4.1 See_Comment [A utomated message] The Eosinophils) system which ge nerated this result tra nsmitted reference range : <=4.0. The reference r katie was not used to int erpret this result as normal/abnormal . [facility] CenterAuygzgsOIYJUJRLDT1684-13-16 06:15:00 Test Item Value Reference Range Interpretation Comments RBC (test code = RBC) 2.19 4.70-6.10 [facility] CenterQzcgojxIOXWYUMBTY2857-79-87 06:15:00 Test Item Value Reference Range Interpretation Comments Hgb (test code = Hgb) 6.7 14.0-18.0 [facility] CenterJhukofhZOETXKWWQB9679-19-61 06:15:00 Test Item Value Reference Range Interpretation Comments Hct (test code = Hct) 19.9 42.0-54.0 [facility] CenterXbcehuiDWSHZGIQHE2731-63-03 06:15:00 Test Item Value Reference Range Interpretation Comments WBC (test code = WBC) 3.3 3.7-10.4 [facility] CenterKkjkjnaEDSWHZUPMT6638-15-08 06:15:00 Test Item Value Reference Range Interpretation Comments MCV (test code = MCV) 90.9 80.0-94.0 [facility] CenterKueqmrgTAPSOHSECK1704-42-73 06:15:00 Test Item Value Reference Range Interpretation Comments MCH (test code = MCH) 30.8 pg 27.0-31.0 [facility] CenterZuwlmpnIOMQERWLSF5085-18-43 06:15:00 Test Item Value Reference Range Interpretation Comments MCHC (test code = MCHC) 33.9 32.0-36.0 [facility] CenterBgwttieKAVLYFZNVU6853-68-13 06:15:00 Test Item Value Reference Range Interpretation Comments RDW (test code = RDW) 13.6 11.5-14.5 [facility] CenterLcktdxaTSLVNIVWWX6312-44-59 06:15:00 Test Item Value Reference Range Interpretation Comments Platelet (test code = Platelet) 74 133-450 [facility]CHE[facility] KUYOU5508-45-98 06:15:00 Test Item Value Reference Range Interpretation Comments BUN (test code = BUN) 44 7-22 [facility] CenterJkgxhxxWMTAWKXZCF1139-92-65 06:15:00 Test Item Value Reference Range Interpretation Comments MPV (test code = MPV) 9.0 7.4-10.4 [facility]2018-09-11 06:15:00 Test Item Value Reference Range Interpretation Comments Ca Norm WB (test code = Ca Norm WB) 0.95 1.05-1.25 [facility]2018-09-11 06:15:00 Test Item Value Reference Range Interpretation Comments Ca Ion WB (test code = Ca Ion WB) 0.95 1.05-1.25 [facility] CenterSohepllCPFIGOJPZY5828-36-04 06:15:00 Test Item Value Reference Range Interpretation Comments Eosinophils # (test code 0.1 See_Comment [A utomated message] The = Eosinophils #) system whic h generated this result tra nsmitted reference range : <=0.5. The reference r katie was not used to int erpret this result as normal/abnormal . [facility] CenterUkdssglAZFKEXYKSX8353-85-85 06:15:00 Test Item Value Reference Range Interpretation Comments Lymphocytes # (test code = Lymphocytes 0.7 1.0-5.5 #) [facility] CenterJncxkssFHRAYUDRMW8441-71-39 06:15:00 Test Item Value Reference Range Interpretation Comments Monocytes # (test code 0.4 See_Comment [Aut omated message] The = Monocytes #) system which generated this result tra nsmitted reference range : <=0.8. The reference r katie was not used to int erpret this result as normal/abnormal . [facility] CenterXmfhtoxESZPRDEFHI7814-99-09 06:15:00 Test Item Value Reference Range Interpretation Comments Basophils (test code = 0.8 See_Comment [Aut omated message] The Basophils) system which ge nerated this result tra nsmitted reference range : <=1.0. The reference r katie was not used to int erpret this result as normal/abnormal . [facility] CenterYivivukVKWABYFSVD2441-38-75 06:15:00 Test Item Value Reference Range Interpretation Comments Neutrophils # (test code = Neutrophils 2.1 1.5-8.1 #) [facility] CenterAifdadqNPYZKLLFPU0403-36-78 06:15:00 Test Item Value Reference Range Interpretation Comments Lymphocytes (test code = Lymphocytes) 20.6 20.0-40.0 [facility] CenterDysfbynPNJGDPTBUQ0303-30-19 06:15:00 Test Item Value Reference Range Interpretation Comments Segs (test code = Segs) 63.3 45.0-75.0 [facility] CenterOfbhchmARGFRXYFKF2529-23-75 06:15:00 Test Item Value Reference Range Interpretation Comments Monocytes (test code = Monocytes) 11.2 2.0-12.0 [facility] CenterDiyzlgjMFRMGSZVJR6405-80-11 06:15:00 Test Item Value Reference Range Interpretation Comments Eosinophils (test code = 4.1 See_Comment [A utomated message] The Eosinophils) system which ge nerated this result tra nsmitted reference range : <=4.0. The reference r katie was not used to int erpret this result as normal/abnormal . [facility] CenterRpowrrxDTSACJEBRM8969-14-83 06:15:00 Test Item Value Reference Range Interpretation Comments RBC (test code = RBC) 2.19 4.70-6.10 [facility] CenterQoleeuiCIDAPQDVVI2125-16-52 06:15:00 Test Item Value Reference Range Interpretation Comments Hgb (test code = Hgb) 6.7 14.0-18.0 [facility] CenterKzdhtstYRRSXYQUNL2721-92-97 06:15:00 Test Item Value Reference Range Interpretation Comments Hct (test code = Hct) 19.9 42.0-54.0 [facility] CenterJbcjnrdABIGHZOVQM6170-63-61 06:15:00 Test Item Value Reference Range Interpretation Comments WBC (test code = WBC) 3.3 3.7-10.4 [facility] CenterSwstuebAXSRBURKNE5634-24-58 06:15:00 Test Item Value Reference Range Interpretation Comments MCV (test code = MCV) 90.9 80.0-94.0 [facility] CenterDiyctfiURJXFIXZFI7634-90-12 06:15:00 Test Item Value Reference Range Interpretation Comments MCH (test code = MCH) 30.8 pg 27.0-31.0 [facility] CenterQauklkvNAGPIWWKLU0753-75-61 06:15:00 Test Item Value Reference Range Interpretation Comments MCHC (test code = MCHC) 33.9 32.0-36.0 [facility] CenterUudcfmnNIAHTCZCZX2542-64-08 06:15:00 Test Item Value Reference Range Interpretation Comments RDW (test code = RDW) 13.6 11.5-14.5 [facility] CenterAbidmpkWVEWFAHYTL3219-69-17 06:15:00 Test Item Value Reference Range Interpretation Comments Platelet (test code = Platelet) 74 133-450 [facility] CenterWizifhmTSPAGPEFGK8676-20-04 06:15:00 Test Item Value Reference Range Interpretation Comments MPV (test code = MPV) 9.0 7.4-10.4 [facility]annPARATHYROID BRROBVA1770-83-53 06:15:00 Test Item Value Reference Range Interpretation Comments Ca Norm WB (test code = Ca Norm WB) 0.95 1.05-1.25 [facility] CenterannPARATHYROID JDMOBYP0534-70-05 06:15:00 Test Item Value Reference Range Interpretation Comments Ca Ion WB (test code = Ca Ion WB) 0.95 1.05-1.25 [facility]annCHEM JHNFO7588-33-24 21:30:00 Test Item Value Reference Range Interpretation Comments Phosphorus (test code = Phosphorus) 5.9 2.5-4.5 [facility]annCHEM ZUUVL1193-17-72 21:30:00 Test Item Value Reference Range Interpretation Comments Magnesium Lvl (test code = Magnesium 1.7 1.8-2.4 Lvl) [facility]annCHEM LPEVY8578-17-62 21:30:00 Test Item Value Reference Range Interpretation Comments Phosphorus (test code = Phosphorus) 5.9 2.5-4.5 [facility]annCHEM [id number] 21:30:00 Test Item Value Reference Range Interpretation Comments Magnesium Lvl (test code = Magnesium 1.7 1.8-2.4 Lvl) [facility] CenterannCARDIAC EDWBPHG7621-15-49 09:25:00 Test Item Value Reference Range Interpretation Comments Total CK (test code = Total CK) 661 12-191 [facility] CenterCHEM KVPSK1291-61-34 09:25:00 Test Item Value Reference Range Interpretation Comments Phosphorus (test code = Phosphorus) 6.3 2.5-4.5 [facility]annCHEM KWFBS6318-18-16 09:25:00 Test Item Value Reference Range Interpretation Comments Magnesium Lvl (test code = Magnesium 1.6 1.8-2.4 Lvl) [facility] CenterIlskvrwKHOESURQB7637-63-79 09:25:00 Test Item Value Reference Range Interpretation Comments Myoglobin (test code = Myoglobin) 5342 -63 [facility] CenterCARDIAC LXIOJXA0527-35-61 09:25:00 Test Item Value Reference Range Interpretation Comments Total CK (test code = Total CK) 661 12-191 [facility] CenterCHEM IKPPB4319-76-69 09:25:00 Test Item Value Reference Range Interpretation Comments Phosphorus (test code = Phosphorus) 6.3 2.5-4.5 [facility] OVWKC1681-57-52 09:25:00 Test Item Value Reference Range Interpretation Comments Magnesium Lvl (test code = Magnesium 1.6 1.8-2.4 Lvl) [facility] CenterMgoanipHQZIEUNYQ4249-19-05 09:25:00 Test Item Value Reference Range Interpretation Comments Myoglobin (test code = Myoglobin) 7376 -02 [facility] [id number] 04:41:00 Test Item Value Reference Range Interpretation Comments Phosphorus (test code = Phosphorus) 6.3 2.5-4.5 [facility] [id number] 04:41:00 Test Item Value Reference Range Interpretation Comments Magnesium Lvl (test code = Magnesium 1.6 1.8-2.4 Lvl) [facility] [id number] 04:41:00 Test Item Value Reference Range Interpretation Comments Lactic Acid Lvl (test code = Lactic 2.0 0.5-2.2 Acid Lvl) [facility] [id number] 04:41:00 Test Item Value Reference Range Interpretation Comments Ketone Quantitative (test code = Ketone 0.11 Quantitative) [facility] CenterOshzxtuTMBQHCFJMO7867-56-04 04:41:00 Test Item Value Reference Range Interpretation Comments Estimated % Lysis Rapid 0.4 See_Comment [Au tomated message] The (test code = Estimated syste m which generated % Lysis Rapid) this result t ransmitted reference range : <=7.5. The reference r katie was not used to int erpret this result as normal/abnormal . [facility]VyqcxkkULUEWYLJOO7461-91-21 04:41:00 Test Item Value Reference Range Interpretation Comments Max Amplitude Rapid (test code = Max 65 mm 52-71 Amplitude Rapid) [facility] CenterWekznbrNELBBKYFDP0263-91-41 04:41:00 Test Item Value Reference Range Interpretation Comments G-value Rapid (test code = G-value 9.4 5.0-11.6 Rapid) [facility] CenterGjymdhoZZYNRNSYEC9955-79-77 04:41:00 Test Item Value Reference Range Interpretation Comments ACT (TEG) Rapid (test code = ACT (TEG) 105 s 86-118 Rapid) [facility] CenterJbggeqqXURKYEBEAI1245-36-74 04:41:00 Test Item Value Reference Range Interpretation Comments Split Point Rapid (test code = Split 0.4 min Point Rapid) [facility] CenterRoiwhtqOWCIKFSKJA8768-53-93 04:41:00 Test Item Value Reference Range Interpretation Comments R-time Rapid (test code = R-time 0.6 min 0.4-0.7 Rapid) [facility] CenterUzdjdfuMUKOMXDYHW0568-11-96 04:41:00 Test Item Value Reference Range Interpretation Comments K-time Rapid (test code = K-time 1.0 min 0.6-2.3 Rapid) [facility] CenterXfahpypLZQKTHNSFI0986-07-13 04:41:00 Test Item Value Reference Range Interpretation Comments Angle Rapid (test code = Angle 76 degrees 64-80 Rapid) [facility]2018-09-10 04:41:00 Test Item Value Reference Range Interpretation Comments Ca Norm WB (test code = Ca Norm WB) 0.96 1.05-1.25 [facility]2018-09-10 04:41:00 Test Item Value Reference Range Interpretation Comments Ca Ion WB (test code = Ca Ion WB) 0.99 1.05-1.25 [facility] AND [id number] 04:41:00 Test Item Value Reference Range Interpretation Comments UA Sq Epi (test code = UA Sq Epi) None Seen [facility] AND [id number] 04:41:00 Test Item Value Reference Range Interpretation Comments UA Urobilinogen (test code = UA 4.0 0.1-1.0 Urobilinogen) [facility] AND [id number] 04:41:00 Test Item Value Reference Range Interpretation Comments UA Nitrite (test code Negative (07/15/18 11:41 = UA Nitrite) PM) [facility] AND [id number] 04:41:00 Test Item Value Reference Range Interpretation Comments UA Bili (test code = Negative *NA*(07/15/18 UA Bili) 11:41 PM) [facility] AND [id number] 04:41:00 Test Item Value Reference Range Interpretation Comments UA Blood (test code = Large *ABN*(07/15/18 UA Blood) 11:41 PM) [facility] AND [id number] 04:41:00 Test Item Value Reference Range Interpretation Comments UA Glucose (test code = UA Negative mg/dL Glucose) [facility] AND [id number] 04:41:00 Test Item Value Reference Range Interpretation Comments UA Ketones (test code = UA Trace mg/dL Ketones) [facility] AND [id number] 04:41:00 Test Item Value Reference Range Interpretation Comments UA Protein (test code = UA Protein) 30 mg/dL [facility] AND [id number] 04:41:00 Test Item Value Reference Range Interpretation Comments UA pH (test code = UA pH) 5.0 1 5.0-8.0 [facility] [facility] [id number] 04:41:00 Test Item Value Reference Range Interpretation Comments UA Leuk Est (test code Large *ABN*(07/15/18 = UA Leuk Est) 11:41 PM) [facility] AND [id number] 04:41:00 Test Item Value Reference Range Interpretation Comments UA WBC (test code = 44 See_Comment [Automa didi message] The UA WBC) system which ge nerated this result transmit didi reference range : <=5. The reference range was not used to interpr et this result as james l/abnormal. [facility] AND [id number] 04:41:00 Test Item Value Reference Range Interpretation Comments UA RBC (test code = 154 See_Comment [Automa didi message] The UA RBC) system which ge nerated this result transmit didi reference range : <=2. The reference range was not used to interpr et this result as james l/abnormal. [facility] AND [id number] 04:41:00 Test Item Value Reference Range Interpretation Comments UA Bacteria (test code = UA Occasional /HPF Bacteria) [facility] AND [id number] 04:41:00 Test Item Value Reference Range Interpretation Comments UA Hyal Cast (test 58 See_Comment [Automat ed message] The code = UA Hyal Cast) system which generated this result transmit didi reference range : <=2. The reference range was not used to interpr et this result as james l/abnormal. [facility] AND [id number] 04:41:00 Test Item Value Reference Range Interpretation Comments UA Spec Grav (test code = UA Spec 1.031 1 Grav) [facility] AND [id number] 04:41:00 Test Item Value Reference Range Interpretation Comments UA Turbidity (test code Slight *ABN*(07/15/18 = UA Turbidity) 11:41 PM) [facility] AND [id number] 04:41:00 Test Item Value Reference Range Interpretation Comments UA Color (test code = Yellow *NA*(07/15/18 UA Color) 11:41 PM) [facility] [id number] 04:41:00 Test Item Value Reference Range Interpretation Comments U Sodium (test code = U Sodium) 29 [facility] [id number] 04:41:00 Test Item Value Reference Range Interpretation Comments U Creatinine (test code = U 191.00 Creatinine) [facility] [id number] 04:41:00 Test Item Value Reference Range Interpretation Comments Culture: Urine (test code = No Growth Culture: Urine) [facility] [id number] 04:41:00 Test Item Value Reference Range Interpretation Comments Phosphorus (test code = Phosphorus) 6.3 2.5-4.5 [facility] [id number] 04:41:00 Test Item Value Reference Range Interpretation Comments Magnesium Lvl (test code = Magnesium 1.6 1.8-2.4 Lvl) [facility] [id number] 04:41:00 Test Item Value Reference Range Interpretation Comments Lactic Acid Lvl (test code = Lactic 2.0 0.5-2.2 Acid Lvl) [facility] [id number] 04:41:00 Test Item Value Reference Range Interpretation Comments Ketone Quantitative (test code = Ketone 0.11 Quantitative) [facility] [id number] 04:41:00 Test Item Value Reference Range Interpretation Comments Estimated % Lysis Rapid 0.4 See_Comment [Au tomated message] The (test code = Estimated syste m which generated % Lysis Rapid) this result t ransmitted reference range : <=7.5. The reference r katie was not used to int erpret this result as normal/abnormal . [facility] [id number] 04:41:00 Test Item Value Reference Range Interpretation Comments Max Amplitude Rapid (test code = Max 65 mm 52-71 Amplitude Rapid) [facility] [id number] 04:41:00 Test Item Value Reference Range Interpretation Comments G-value Rapid (test code = G-value 9.4 5.0-11.6 Rapid) [facility] [id number] 04:41:00 Test Item Value Reference Range Interpretation Comments ACT (TEG) Rapid (test code = ACT (TEG) 105 s 86-118 Rapid) [facility] [id number] 04:41:00 Test Item Value Reference Range Interpretation Comments Split Point Rapid (test code = Split 0.4 min Point Rapid) [facility] [id number] 04:41:00 Test Item Value Reference Range Interpretation Comments R-time Rapid (test code = R-time 0.6 min 0.4-0.7 Rapid) [facility] [id number] 04:41:00 Test Item Value Reference Range Interpretation Comments K-time Rapid (test code = K-time 1.0 min 0.6-2.3 Rapid) [facility] CenterVismiymKPTVGXGJSC7694-59-04 04:41:00 Test Item Value Reference Range Interpretation Comments Angle Rapid (test code = Angle 76 degrees 64-80 Rapid) [facility]2018-09-10 04:41:00 Test Item Value Reference Range Interpretation Comments Ca Norm WB (test code = Ca Norm WB) 0.96 1.05-1.25 [facility] [id number] 04:41:00 Test Item Value Reference Range Interpretation Comments Ca Ion WB (test code = Ca Ion WB) 0.99 1.05-1.25 [facility] AND [id number] 04:41:00 Test Item Value Reference Range Interpretation Comments UA Sq Epi (test code = UA Sq Epi) None Seen [facility] AND [id number] 04:41:00 Test Item Value Reference Range Interpretation Comments UA Urobilinogen (test code = UA 4.0 0.1-1.0 Urobilinogen) [facility] AND [id number] 04:41:00 Test Item Value Reference Range Interpretation Comments UA Nitrite (test code Negative (07/15/18 11:41 = UA Nitrite) PM) [facility] AND [id number] 04:41:00 Test Item Value Reference Range Interpretation Comments UA Bili (test code = Negative *NA*(07/15/18 UA Bili) 11:41 PM) [facility] AND [id number] 04:41:00 Test Item Value Reference Range Interpretation Comments UA Blood (test code = Large *ABN*(07/15/18 UA Blood) 11:41 PM) [facility] AND [id number] 04:41:00 Test Item Value Reference Range Interpretation Comments UA Glucose (test code = UA Negative mg/dL Glucose) [facility] AND [id number] 04:41:00 Test Item Value Reference Range Interpretation Comments UA Ketones (test code = UA Trace mg/dL Ketones) [facility] AND [id number] 04:41:00 Test Item Value Reference Range Interpretation Comments UA Protein (test code = UA Protein) 30 mg/dL [facility] AND [id number] 04:41:00 Test Item Value Reference Range Interpretation Comments UA pH (test code = UA pH) 5.0 1 5.0-8.0 [facility] AND [id number] 04:41:00 Test Item Value Reference Range Interpretation Comments UA Leuk Est (test code Large *ABN*(07/15/18 = UA Leuk Est) 11:41 PM) [facility] AND [id number] 04:41:00 Test Item Value Reference Range Interpretation Comments UA WBC (test code = 44 See_Comment [Automa didi message] The UA WBC) system which ge nerated this result transmit didi reference range : <=5. The reference range was not used to interpr et this result as james l/abnormal. [facility] AND [id number] 04:41:00 Test Item Value Reference Range Interpretation Comments UA RBC (test code = 154 See_Comment [Automa didi message] The UA RBC) system which ge nerated this result transmit didi reference range : <=2. The reference range was not used to interpr et this result as james l/abnormal. [facility] AND [id number] 04:41:00 Test Item Value Reference Range Interpretation Comments UA Bacteria (test code = UA Occasional /HPF Bacteria) [facility] AND [id number] 04:41:00 Test Item Value Reference Range Interpretation Comments UA Hyal Cast (test 58 See_Comment [Automat ed message] The code = UA Hyal Cast) system which generated this result transmit didi reference range : <=2. The reference range was not used to interpr et this result as james l/abnormal. [facility] AND [id number] 04:41:00 Test Item Value Reference Range Interpretation Comments UA Spec Grav (test code = UA Spec 1.031 1 Grav) [facility] AND [id number] 04:41:00 Test Item Value Reference Range Interpretation Comments UA Turbidity (test code Slight *ABN*(07/15/18 = UA Turbidity) 11:41 PM) [facility] AND [id number] 04:41:00 Test Item Value Reference Range Interpretation Comments UA Color (test code = Yellow *NA*(07/15/18 UA Color) 11:41 PM) [facility] [id number] 04:41:00 Test Item Value Reference Range Interpretation Comments U Sodium (test code = U Sodium) 29 [facility] [id number] 04:41:00 Test Item Value Reference Range Interpretation Comments U Creatinine (test code = U 191.00 Creatinine) [facility] CenterCulture: [id number] 04:41:00 Test Item Value Reference Range Interpretation Comments Culture: Urine (test code = No Growth Culture: Urine) [facility] [id number] 22:34:00 Test Item Value Reference Range Interpretation Comments U Urea (test code = U Urea) 99 [facility] [id number] 22:34:00 Test Item Value Reference Range Interpretation Comments U Osmolality (test code = U Osmolality) 330 300-800 [facility] [id number] 22:34:00 Test Item Value Reference Range Interpretation Comments U Creatinine (test code = U 154.00 Creatinine) [facility] [id number] 22:34:00 Test Item Value Reference Range Interpretation Comments U Urea (test code = U Urea) 99 [facility] [id number] 22:34:00 Test Item Value Reference Range Interpretation Comments U Osmolality (test code = U Osmolality) 330 300-800 [facility] [id number] 22:34:00 Test Item Value Reference Range Interpretation Comments U Creatinine (test code = U 154.00 Creatinine) [facility] CenterJack On BlockCOM[facility] [id number] 20:32:00 Test Item Value Reference Range Interpretation Comments proBNP (test code = 765 See_Comment [Automa didi message] The proBNP) system which ge nerated this result tra nsmitted reference range : <=125. The reference r katie was not used to int erpret this result as james l/abnormal. [facility] CenterSignifyd [id number] 20:32:00 Test Item Value Reference Range Interpretation Comments Lactic Acid Lvl (test code = Lactic 2.0 0.5-2.2 Acid Lvl) [facility] CenterJack On BlockCOM[facility]WE[facility] [id number] 20:32:00 Test Item Value Reference Range Interpretation Comments proBNP (test code = 765 See_Comment [Automa didi message] The proBNP) system which ge nerated this result tra nsmitted reference range : <=125. The reference r katie was not used to int erpret this result as james l/abnormal. [facility] CenterSignifyd [id number] 20:32:00 Test Item Value Reference Range Interpretation Comments Lactic Acid Lvl (test code = Lactic 2.0 0.5-2.2 Acid Lvl) [facility] [id number] 13:46:00 Test Item Value Reference Range Interpretation Comments Basophils # (test code 0.1 See_Comment [Aut omated message] The = Basophils #) system which generated this result tra nsmitted reference range : <=0.2. The reference r katie was not used to int erpret this result as normal/abnormal . [facility] [id number] 13:46:00 Test Item Value Reference Range Interpretation Comments Hgb A1C (test code = Hgb A1C) 10.0 [facility] [id number] 13:46:00 Test Item Value Reference Range Interpretation Comments Basophils # (test code 0.1 See_Comment [Aut omated message] The = Basophils #) system which generated this result tra nsmitted reference range : <=0.2. The reference r katie was not used to int erpret this result as normal/abnormal . [facility] [id number] 13:46:00 Test Item Value Reference Range Interpretation Comments Hgb A1C (test code = Hgb A1C) 10.0 [facility] CenterCHEM [id number] 06:41:00 Test Item Value Reference Range Interpretation Comments Lactic Acid Lvl (test code = Lactic 2.4 0.5-2.2 Acid Lvl) [facility] CenterCHEM [id number] 06:41:00 Test Item Value Reference Range Interpretation Comments Lactic Acid Lvl (test code = Lactic 2.4 0.5-2.2 Acid Lvl) [facility] [id number] 06:37:00 Test Item Value Reference Range Interpretation Comments Basophils # (test code 0.1 See_Comment [Aut omated message] The = Basophils #) system which generated this result tra nsmitted reference range : <=0.2. The reference r katie was not used to int erpret this result as normal/abnormal . [facility] [id number] 06:37:00 Test Item Value Reference Range Interpretation Comments Basophils # (test code 0.1 See_Comment [Aut omated message] The = Basophils #) system which generated this result tra nsmitted reference range : <=0.2. The reference r katie was not used to int erpret this result as normal/abnormal . [facility] CenterDR[facility] [id number] 00:06:00 Test Item Value Reference Range Interpretation Comments U Benzodiaz Scr (test Negative *NA*(07/14/18 code = U Benzodiaz Scr) 7:06 PM) [facility] CenterDR[facility] [id number] 00:06:00 Test Item Value Reference Range Interpretation Comments U Tessa Scr (test code Negative *NA*(07/14/18 = U Tessa Scr) 7:06 PM) [facility] CenterDR[facility] [id number] 00:06:00 Test Item Value Reference Range Interpretation Comments U Cocaine Scr (test Negative *NA*(07/14/18 code = U Cocaine Scr) 7:06 PM) [facility] [id number] 00:06:00 Test Item Value Reference Range Interpretation Comments U Cannab Scr (test Negative *NA*(07/14/18 code = U Cannab Scr) 7:06 PM) [facility] [id number] 00:06:00 Test Item Value Reference Range Interpretation Comments U Phencyclidine Scr (test Negative *NA*(07/14/18 code = U Phencyclidine 7:06 PM) Scr) [facility] [id number] 00:06:00 Test Item Value Reference Range Interpretation Comments U Opiate Scr (test Negative *NA*(07/14/18 code = U Opiate Scr) 7:06 PM) [facility] [id number] 00:06:00 Test Item Value Reference Range Interpretation Comments UDS Note (test code = See Note *NA*(07/14/18 UDS Note) 7:06 PM) [facility] [id number] 00:06:00 Test Item Value Reference Range Interpretation Comments U Amph Scr (test code Negative *NA*(07/14/18 = U Amph Scr) 7:06 PM) [facility] [id number] 00:06:00 Test Item Value Reference Range Interpretation Comments UA Sq Epi (test code = UA Sq Epi) Rare /LPF [facility] [id number] 00:06:00 Test Item Value Reference Range Interpretation Comments UA RBC (test None Seen See_Comment [Automated mes aarti] code = UA RBC) (07/14/18 7:06 PM) The syste m which generated this result transmitted ref erence range: <=2. The reference range was not used to int erpret this result as normal/abnormal . [facility] [id number] 00:06:00 Test Item Value Reference Range Interpretation Comments UA WBC (test code = UA WBC) 1-3 [facility] [id number] 00:06:00 Test Item Value Reference Range Interpretation Comments UA Leuk Est (test Negative (07/14/18 7:06 code = UA Leuk Est) PM) [facility] [id number] 00:06:00 Test Item Value Reference Range Interpretation Comments UA Blood (test code = Negative (07/14/18 7:06 UA Blood) PM) [facility] AND [id number] 00:06:00 Test Item Value Reference Range Interpretation Comments UA Urobilinogen (test code = UA 0.2 0.1-1.0 Urobilinogen) [facility] [id number] 00:06:00 Test Item Value Reference Range Interpretation Comments UA Nitrite (test code Negative (07/14/18 7:06 = UA Nitrite) PM) [facility] CenterannUR[facility] AND [id number] 00:06:00 Test Item Value Reference Range Interpretation Comments UA Bili (test code = Negative *NA*(07/14/18 UA Bili) 7:06 PM) [facility] AND [id number] 00:06:00 Test Item Value Reference Range Interpretation Comments UA Ketones (test code Negative *NA*(07/14/18 = UA Ketones) 7:06 PM) [facility] AND [id number] 00:06:00 Test Item Value Reference Range Interpretation Comments UA Protein (test code = UA Protein) 30 mg/dL [facility] AND [id number] 00:06:00 Test Item Value Reference Range Interpretation Comments UA Glucose (test code Negative (07/14/18 7:06 = UA Glucose) PM) [facility]ann[facility] AND [id number] 00:06:00 Test Item Value Reference Range Interpretation Comments UA Color (test code = Yellow *NA*(07/14/18 7:06 UA Color) PM) [facility] AND [id number] 00:06:00 Test Item Value Reference Range Interpretation Comments UA Turbidity (test code = Clear (07/14/18 7:06 UA Turbidity) PM) [facility] CenterannURINE AND [id number] 00:06:00 Test Item Value Reference Range Interpretation Comments UA Spec Grav (test code = UA Spec 1.010 1 Grav) [facility] [id number] 00:06:00 Test Item Value Reference Range Interpretation Comments UA pH (test code = UA pH) 5.5 1 5.0-8.0 [facility] [id number] 00:06:00 Test Item Value Reference Range Interpretation Comments U Benzodiaz Scr (test Negative *NA*(07/14/18 code = U Benzodiaz Scr) 7:06 PM) [facility] [id number] 00:06:00 Test Item Value Reference Range Interpretation Comments U Tessa Scr (test code Negative *NA*(07/14/18 = U Tessa Scr) 7:06 PM) [facility] [id number] 00:06:00 Test Item Value Reference Range Interpretation Comments U Cocaine Scr (test Negative *NA*(07/14/18 code = U Cocaine Scr) 7:06 PM) [facility] [id number] 00:06:00 Test Item Value Reference Range Interpretation Comments U Cannab Scr (test Negative *NA*(07/14/18 code = U Cannab Scr) 7:06 PM) [facility] [id number] 00:06:00 Test Item Value Reference Range Interpretation Comments U Phencyclidine Scr (test Negative *NA*(07/14/18 code = U Phencyclidine 7:06 PM) Scr) [facility] [id number] 00:06:00 Test Item Value Reference Range Interpretation Comments U Opiate Scr (test Negative *NA*(07/14/18 code = U Opiate Scr) 7:06 PM) [facility] [id number] 00:06:00 Test Item Value Reference Range Interpretation Comments UDS Note (test code = See Note *NA*(07/14/18 UDS Note) 7:06 PM) [facility] [id number] 00:06:00 Test Item Value Reference Range Interpretation Comments U Amph Scr (test code Negative *NA*(07/14/18 = U Amph Scr) 7:06 PM) [facility] [id number] 00:06:00 Test Item Value Reference Range Interpretation Comments UA Sq Epi (test code = UA Sq Epi) Rare /LPF [facility] [id number] 00:06:00 Test Item Value Reference Range Interpretation Comments UA RBC (test None Seen See_Comment [Automated mes aarti] code = UA RBC) (07/14/18 7:06 PM) The syste m which generated this result transmitted ref erence range: <=2. The reference range was not used to int erpret this result as normal/abnormal . [facility] AND [id number] 00:06:00 Test Item Value Reference Range Interpretation Comments UA WBC (test code = UA WBC) 1-3 [facility] AND [id number] 00:06:00 Test Item Value Reference Range Interpretation Comments UA Leuk Est (test Negative (07/14/18 7:06 code = UA Leuk Est) PM) [facility] AND [id number] 00:06:00 Test Item Value Reference Range Interpretation Comments UA Blood (test code = Negative (07/14/18 7:06 UA Blood) PM) [facility] AND [id number] 00:06:00 Test Item Value Reference Range Interpretation Comments UA Urobilinogen (test code = UA 0.2 0.1-1.0 Urobilinogen) [facility] AND [id number] 00:06:00 Test Item Value Reference Range Interpretation Comments UA Nitrite (test code Negative (07/14/18 7:06 = UA Nitrite) PM) [facility] AND [id number] 00:06:00 Test Item Value Reference Range Interpretation Comments UA Bili (test code = Negative *NA*(07/14/18 UA Bili) 7:06 PM) [facility] AND [id number] 00:06:00 Test Item Value Reference Range Interpretation Comments UA Ketones (test code Negative *NA*(07/14/18 = UA Ketones) 7:06 PM) [facility] AND [id number] 00:06:00 Test Item Value Reference Range Interpretation Comments UA Protein (test code = UA Protein) 30 mg/dL [facility] AND [id number] 00:06:00 Test Item Value Reference Range Interpretation Comments UA Glucose (test code Negative (07/14/18 7:06 = UA Glucose) PM) [facility] AND [id number] 00:06:00 Test Item Value Reference Range Interpretation Comments UA Color (test code = Yellow *NA*(07/14/18 7:06 UA Color) PM) [facility] AND [id number] 00:06:00 Test Item Value Reference Range Interpretation Comments UA Turbidity (test code = Clear (07/14/18 7:06 UA Turbidity) PM) [facility] AND [id number] 00:06:00 Test Item Value Reference Range Interpretation Comments UA Spec Grav (test code = UA Spec 1.010 1 Grav) [facility] AND [id number] 00:06:00 Test Item Value Reference Range Interpretation Comments UA pH (test code = UA pH) 5.5 1 5.0-8.0 [facility] CenterJack [facility] BlockCOM[facility] [id number] 22:29:18 Test Item Value Reference Range Interpretation Comments Troponin-I (test code no gt See_Comment [Auto mated message] The = Troponin-I) system which g enerated this result transmit didi reference range : <=0.40. The reference r katie was not used to interpr et this result as james l/abnormal. [facility] CenterJack [facility]COM[facility] [id number] 22:29:18 Test Item Value Reference Range Interpretation Comments Troponin-I (test code no gt See_Comment [Auto mated message] The = Troponin-I) system which g enerated this result transmit didi reference range : <=0.40. The reference r katie was not used to interpr et this result as james l/abnormal. [facility] [id number] 22:05:00 Test Item Value Reference Range Interpretation Comments Basophils # (test code 0.1 See_Comment [Aut omated message] The = Basophils #) system which generated this result tra nsmitted reference range : <=0.2. The reference r katie was not used to int erpret this result as normal/abnormal . [facility] [id number] 22:05:00 Test Item Value Reference Range Interpretation Comments Basophils # (test code 0.1 See_Comment [Aut omated message] The = Basophils #) system which generated this result tra nsmitted reference range : <=0.2. The reference r katie was not used to int erpret this result as normal/abnormal . [facility] [employer] [id number] 19:58:00 Test Item Value Reference Range Interpretation Comments Antibody Scrn (test Negative (07/14/18 2:58 code = Antibody Scrn) PM) [facility] [employer] [id number] 19:58:00 Test Item Value Reference Range Interpretation Comments ABO/Rh (test code = ABO/Rh) O POS [facility] [id number] 19:58:00 Test Item Value Reference Range Interpretation Comments Estimated % Lysis Rapid 0.1 See_Comment [Au tomated message] The (test code = Estimated syste m which generated % Lysis Rapid) this result t ransmitted reference range : <=7.5. The reference r katie was not used to int erpret this result as normal/abnormal . [facility] [id number] 19:58:00 Test Item Value Reference Range Interpretation Comments G-value Rapid (test code = G-value 12.0 5.0-11.6 Rapid) [facility] [id number] 19:58:00 Test Item Value Reference Range Interpretation Comments Max Amplitude Rapid (test code = Max 71 mm 52-71 Amplitude Rapid) [facility] [id number] 19:58:00 Test Item Value Reference Range Interpretation Comments Split Point Rapid (test code = Split 0.5 min Point Rapid) [facility] [id number] 19:58:00 Test Item Value Reference Range Interpretation Comments ACT (TEG) Rapid (test code = ACT (TEG) 113 s 86-118 Rapid) [facility] [id number] 19:58:00 Test Item Value Reference Range Interpretation Comments R-time Rapid (test code = R-time 0.7 min 0.4-0.7 Rapid) [facility] C[id number] 19:58:00 Test Item Value Reference Range Interpretation Comments K-time Rapid (test code = K-time 1.0 min 0.6-2.3 Rapid) [facility] [id number] 19:58:00 Test Item Value Reference Range Interpretation Comments Angle Rapid (test code = Angle 77 degrees 64-80 Rapid) [facility] [id number] 19:58:00 Test Item Value Reference Range Interpretation Comments PT (test code = PT) 13.7 s 12.0-14.7 [facility] [id number] 19:58:00 Test Item Value Reference Range Interpretation Comments INR (test code = INR) 1.05 1 0.85-1.17 [facility] [id number] 19:58:00 Test Item Value Reference Range Interpretation Comments PTT (test code = PTT) 25.0 s 22.9-35.8 [facility] [id number] 19:58:00 Test Item Value Reference Range Interpretation Comments Etoh (%) (test code = Etoh (%)) <0.003 % [facility] [id number] 19:58:00 Test Item Value Reference Range Interpretation Comments Ethanol Lvl (test code = Ethanol <3.0 mg/dL Lvl) [facility] CenternuMVC [facility] [id number] 19:58:00 Test Item Value Reference Range Interpretation Comments Antibody Scrn (test Negative (07/14/18 2:58 code = Antibody Scrn) PM) [facility] [id number] 19:58:00 Test Item Value Reference Range Interpretation Comments ABO/Rh (test code = ABO/Rh) O POS [facility] [id number] 19:58:00 Test Item Value Reference Range Interpretation Comments Estimated % Lysis Rapid 0.1 See_Comment [Au tomated message] The (test code = Estimated syste m which generated % Lysis Rapid) this result t ransmitted reference range : <=7.5. The reference r katie was not used to int erpret this result as normal/abnormal . [facility] [id number] 19:58:00 Test Item Value Reference Range Interpretation Comments G-value Rapid (test code = G-value 12.0 5.0-11.6 Rapid) [facility] [id number] 19:58:00 Test Item Value Reference Range Interpretation Comments Max Amplitude Rapid (test code = Max 71 mm 52-71 Amplitude Rapid) [facility] [id number] 19:58:00 Test Item Value Reference Range Interpretation Comments Split Point Rapid (test code = Split 0.5 min Point Rapid) [facility] [id number] 19:58:00 Test Item Value Reference Range Interpretation Comments ACT (TEG) Rapid (test code = ACT (TEG) 113 s 86-118 Rapid) [facility] [id number] 19:58:00 Test Item Value Reference Range Interpretation Comments R-time Rapid (test code = R-time 0.7 min 0.4-0.7 Rapid) [facility] [id number] 19:58:00 Test Item Value Reference Range Interpretation Comments K-time Rapid (test code = K-time 1.0 min 0.6-2.3 Rapid) [facility] [id number] 19:58:00 Test Item Value Reference Range Interpretation Comments Angle Rapid (test code = Angle 77 degrees 64-80 Rapid) [facility] [id number] 19:58:00 Test Item Value Reference Range Interpretation Comments PT (test code = PT) 13.7 s 12.0-14.7 [facility] [id number] 19:58:00 Test Item Value Reference Range Interpretation Comments INR (test code = INR) 1.05 1 0.85-1.17 [facility] [id number] 19:58:00 Test Item Value Reference Range Interpretation Comments PTT (test code = PTT) 25.0 s 22.9-35.8 [place] [id number] 19:58:00 Test Item Value Reference Range Interpretation Comments Etoh (%) (test code = Etoh (%)) <0.003 % [place] [id number] 19:58:00 Test Item Value Reference Range Interpretation Comments Ethanol Lvl (test code = Ethanol <3.0 mg/dL Lvl) [facility]
[2022-10-13 15:09] LABS: Absolute Lymphocytes (CBC) 0.4 K/uL (0.7-4.9); Hematocrit 25.6 % (39.6-49.0); Lymphocytes % 9.1 % (15.3-44.8); MCV 86.8 fL (80-100); MPV 7.4 fL (7.6-11.3); RBC Red Blood Cell Count 2.95 M/uL (4.33-5.43)
[2022-10-13 15:13] LABS: SARS-COV-2 RT PCR NEGATIVE (NEGATIVE)
[2022-10-13 15:22] LABS: Protime INR 1.15
[2022-10-13 15:26] LABS: Albumin 3.7 g/dL (3.4-5.0); Bilirubin Total 0.7 mg/dL (0.2-1.0); Potassium 3.9 mmol/L (3.5-5.1); Protein, Total 7.9 g/dL (6.4-8.2)
[2022-10-13] MEDS ORDERED: NA CHLORIDE 0.9% 500 ML ONE (15:55)
[2022-10-13] MEDS ORDERED: NA CHLORIDE 0.9% 250 ML ONE (16:14)
--- NOTE | 2022-10-13 16:26 | ER ---
Nurse's Notes [facility] Name: Harpreet Chen Sr Age: 71 yrs Sex: Male : 1950 Arrival Date: 10/13/2022 Time: 13:58 Bed 15 Private MD: Diagnosis: End stage renal disease;Hypotension, unspecified Presentation: 10/13 14:00 Chief complaint: EMS states: Pt arrived at dialysis for tx and BP was low, initial BP ph for EMS 76 systolic, place pt in Trendelenburg and improved to 90s systolic, pt states that he has hx of orthostatic hypotension and HTN, recently started dialysis while admitted to hospital, dialysis was NOT done today. Coronavirus screen: Vaccine status: Patient reports receiving the 2nd dose of the covid vaccine. Ebola Screen: No symptoms or risks identified at this time. Initial Sepsis Screen: Does the patient meet any 2 criteria? No. Patient's initial sepsis screen is negative. Does the patient have a suspected source of infection? No. Patient's initial sepsis screen is negative. Risk Assessment: Do you want to hurt yourself or someone else? Patient reports no desire to harm self or others. Onset of symptoms was October 13, 2022. 14:00 Method Of Arrival: EMS: [facility] ph 14:00 Acuity: MATTHEW 2 ph Historical: - Allergies: 13:59 Lisinopril; hb - PMHx: 13:59 HD - Mon//Mon; hb - Immunization history:: Adult Immunizations unknown. - Social history:: Smoking status: Patient denies any tobacco usage or history of. - Family history:: not pertinent. - Hospitalizations: : No recent hospitalization is reported. Screenin:00 Abuse screen: Denies threats or abuse. Denies injuries from another. Nutritional hb screening: No deficits noted. Tuberculosis screening: No symptoms or risk factors identified. Fall Risk Total Lima Fall Scale indicates Low Risk Score (25-44 pts). Fall prevention measures have been instituted. Side Rails Up X 2 Frequent Obs/Assesments occuring As available Patient and Family Educated on Fall Prevention Program and strategies. Assessment: 14:04 General: Appears in no apparent distress. comfortable, Behavior is calm, cooperative, ph appropriate for age, Denies fever, feeling ill. Pain: Denies pain. Neuro: Level of Consciousness is awake, alert, obeys commands, Oriented to person, place, time, situation. Cardiovascular: Capillary refill < 3 seconds in bilateral fingers Patient's skin is warm and dry. Cardiovascular: Dialysis shunt: in the anterior aspect of right upper chest. Respiratory: Airway is patent Respiratory effort is even, unlabored. GI: No signs and/or symptoms were reported involving the gastrointestinal system. : Mitchell in place Urine is clear. Derm: Skin is pink, warm \T\ dry. Musculoskeletal: Circulation, motion, and sensation intact. Range of motion: intact in all extremities. 15:00 Reassessment: Patient appears in no apparent distress at this time. No changes from hb previously documented assessment. Patient and/or family updated on plan of care and expected duration. Pain level reassessed. 16:00 Visitor restriction implemented due to in-person visitations may lead to the hb transmission of an infectious agent. Restricted visitation is valid for not more than 5 days unless renewed by the attending provider. Reassessment: Patient appears in no apparent distress at this time. Patient and/or family updated on plan of care and expected duration. Pain level reassessed. Patient is alert, oriented x 3, equal unlabored respirations, skin warm/dry/pink. 17:02 Reassessment: Patient appears in no apparent distress at this time. Patient and/or hb family updated on plan of care and expected duration. Pain level reassessed. Patient is alert, oriented x 3, equal unlabored respirations, skin warm/dry/pink. 20:01 GI: Reports nausea. as6 10/14 20:08 General: [employer] nurse stated patient completed with dialysis awaiting for pf1 transport back to ER per [facility].. 20:40 General: Appears in no apparent distress. comfortable, obese, Behavior is calm, pf1 cooperative, appropriate for age, quiet. 20:40 Pain: Denies pain. Neuro: No deficits noted. Level of Consciousness is awake, alert, pf1 obeys commands, Oriented to person, place, time, situation. Cardiovascular: Capillary refill < 3 seconds Patient's skin is warm and dry. Dialysis shunt: in the anterior aspect of right upper chest. Respiratory: No deficits noted. Airway is patent Respiratory effort is even, unlabored. GI: Reports constipation, x 1 week. : No deficits noted. Mitchell in place Patient stated 18 gauge mitchell catheter placed on 11[facility]29/22 [facility]. EENT: No deficits noted. Derm: Decubitus located on sacrum Reports patient reports pressure ulcer to sacrum region. Musculoskeletal: Circulation, motion, and sensation intact. Range of motion: limited in left hip and right hip. Vital Signs: 10/13 14:00 BP 109 / 48; Pulse 65; Resp 18; Temp 98.3(O); Pulse Ox 100% on R/A; Weight 118.84 kg; ph Height 6 ft. 0 in. (183 cm); 16:42 BP 111 / 50; Pulse 65; Resp 18; Pulse Ox 100% on R/A; ph 17:14 BP 102 / 49; Pulse 64; Resp 16; Pulse Ox 100% ; hb 18:30 BP 97 / 50; Pulse 64; Resp 18; Pulse Ox 100% on R/A; ph 20:01 BP 104 / 50; Pulse 67; Resp 12 S; Pulse Ox 97% on R/A; as6 10/14 21:30 BP 116 / 48; Pulse 69; Resp 18; Temp 98.8; Pulse Ox 97% ; Pain 0/10; pf1 10/15 01:08 BP 124 / 48; Pulse 69; Resp 17; Temp 98; Pulse Ox 97% ; Pain 0/10; pf1 10/13 14:00 Body Mass Index 35.49 (118.84 kg, 183 cm) ph ED Course: 10/13 13:58 Patient arrived in ED. rn 13:58 Genaro Veras MD is Attending Physician. rn 14:00 Arm band placed on. hb 14:00 Patient has correct armband on for positive identification. Client placed on continuous hb cardiac and pulse oximetry monitoring. NIBP monitoring applied. 14:03 Triage completed. ph 15:10 Missed attempt(s): 20 gauge in left forearm. Bleeding controlled, band aid applied, jd3 catheter tip intact. 15:22 Accessed peripheral vein via ultrasound, utilizing dynamic ultrasound technique using jd3 20G Nexia IV catheter ,sterile technique, per hospital protocol. Clean \T\ dry. Dressing intact. Good blood return. Flushes easily. 20 G to the right AC. 15:50 Echo Andrade RN is Primary Nurse. ph 16:24 Vishnu Veras MD is Hospitalizing Provider. rn 18:54 No provider procedures requiring assistance completed. Patient admitted, IV remains in ph place. 10/14 21:30 Patient has correct armband on for positive identification. Bed in low position. Call pf1 light in reach. Side rails up X 1. Side rails up X2. Administered Medications: 10/13 14:21 Drug: NS 0.9% 250 ml Route: IV; Rate: bolus; Site: right antecubital; hb 16:43 Follow up: Response: No adverse reaction; IV Status: Completed infusion ph 20:10 Drug: Zofran (Ondansetron) 4 mg Route: IVP; Site: right antecubital; as6 10/14 07:00 Follow up: Response: No adverse reaction db Medication: 10/13 14:00 VIS not applicable for this client. hb Outcome: 16:25 Decision to Hospitalize by Provider. rn 10/15 00:40 Condition: stable pf1 01:40 Admitted to Med/surg accompanied by tech, via stretcher, room 214, Report called to pfNancy Li RN 02:08 Patient left the ED. vc1 Signatures: Genaro Veras MD MD rn Hall, Patricia RN Christianne Gray ph, RN RN Kwan Woodard RN RN Stan Bettencourt RN RN as6 Gena Rene RN RN vc1 Stephany aMta RN RN db finley, Pamala, JANY RN pf1 Corrections: (The following items were deleted from the chart) 01:40 00:40 Admitted to Med/surg accompanied by tech, via stretcher, room 214, pf1 pf1
--- NOTE | 2022-10-13 16:26 | EDPHYS ---
Physician Documentation [facility] Name: Harpreet Chen Sr Age: 71 yrs Sex: Male : 1950 Arrival Date: 10/13/2022 Time: 13:58 Bed 15 Private MD: ED Physician Genaro Veras HPI: 10/13 14:14 This 71 yrs old Male presents to ER via EMS with complaints of low blood pressure. rn 14:14 Pt reports went to dialysis today, told BP too low for dialysis. Was just discharged rn from hospital 2 days ago "with a lot of fluid removed". Reports new to dialysis. Denies fever/chills/chest pain/sob/abd pain. Reports has hx of orthostatic hypotension. . Onset: The symptoms/episode began/occurred this morning. Severity of symptoms: At their worst the symptoms were moderate in the emergency department the symptoms have improved. The patient has experienced similar episodes in the past. The patient has been recently seen by a physician:. Historical: - Allergies: 13:59 Lisinopril; hb - PMHx: 13:59 HD - Mon//Mon; hb - Immunization history:: Adult Immunizations unknown. - Social history:: Smoking status: Patient denies any tobacco usage or history of. - Family history:: not pertinent. - Hospitalizations: : No recent hospitalization is reported. ROS: 14:14 Constitutional: Negative for fever, chills, and weight loss, Eyes: Negative for injury, rn pain, redness, and discharge, Neck: Negative for injury, pain, and swelling, Cardiovascular: Negative for chest pain, palpitations, and edema, Respiratory: Negative for shortness of breath, cough, wheezing, and pleuritic chest pain, Abdomen/GI: Negative for abdominal pain, nausea, vomiting, diarrhea, and constipation, Back: Negative for injury and pain, MS/Extremity: Negative for injury and deformity, Skin: Negative for injury, rash, and discoloration, Neuro: Negative for headache, numbness, tingling, and seizure. Exam: 14:14 Constitutional: This is a well developed, well nourished patient who is awake, alert, rn and in no acute distress. Head/Face: Normocephalic, atraumatic. Eyes: Periorbital areas with no swelling, redness, or edema. ENT: dry MM Cardiovascular: Regular rate and rhythm. No pulse deficits. Respiratory: No increased work of breathing, no retractions or nasal flaring. Abdomen/GI: Soft, non-tender Male : catheter in place with dark urine Skin: Warm, dry MS/ Extremity: Pulses equal, no cyanosis. Neuro: Awake and alert, GCS 15, oriented to person, place, time, and situation. Cranial nerves II-XII grossly intact. Motor strength 4/5 in all extremities. Sensory grossly intact. 14:57 ECG was reviewed by the Attending Physician. rn Vital Signs: 14:00 BP 109 / 48; Pulse 65; Resp 18; Temp 98.3(O); Pulse Ox 100% on R/A; Weight 118.84 kg; ph Height 6 ft. 0 in. (183 cm); 16:42 BP 111 / 50; Pulse 65; Resp 18; Pulse Ox 100% on R/A; ph 17:14 BP 102 / 49; Pulse 64; Resp 16; Pulse Ox 100% ; hb 18:30 BP 97 / 50; Pulse 64; Resp 18; Pulse Ox 100% on R/A; ph 20:01 BP 104 / 50; Pulse 67; Resp 12 S; Pulse Ox 97% on R/A; as6 10/14 21:30 BP 116 / 48; Pulse 69; Resp 18; Temp 98.8; Pulse Ox 97% ; Pain 0/10; pf1 10/15 01:08 BP 124 / 48; Pulse 69; Resp 17; Temp 98; Pulse Ox 97% ; Pain 0/10; pf1 10/13 14:00 Body Mass Index 35.49 (118.84 kg, 183 cm) ph MDM: 10/13 13:58 Patient medically screened. rn 16:23 Differential Diagnosis ESRD, hypotension, anemia, dehydration, orthostatic hypotension. rn Data reviewed: vital signs, nurses notes, lab test result(s), EKG, radiologic studies, plain films, and as a result, I will admit patient. Counseling: I had a detailed discussion with the patient and/or guardian regarding: the historical points, exam findings, and any diagnostic results supporting the discharge/admit diagnosis, lab results, radiology results, the need for further work-up and treatment in the hospital. Response to treatment: the patient's symptoms have mildly improved after treatment, and as a result, I will admit patient. Admission orders: after a detailed discussion of the patient's condition and case, the admit orders are written by me. 10/13 13:59 Order name: Blood Culture Adult (2) rn 10/13 13:59 Order name: CBC with Diff; Complete Time: 15:23 rn 10/13 13:59 Order name: CMP; Complete Time: 15:56 rn 10/13 13:59 Order name: Lactate w/ 2H reflex if indic.; Complete Time: 15:56 rn 10/13 13:59 Order name: Protime (+inr); Complete Time: 15:23 rn 10/13 13:59 Order name: Ptt, Activated; Complete Time: 15:23 rn 10/13 13:59 Order name: Urine Culture rn 10/13 13:59 Order name: Urine Microscopic Only rn 10/13 13:59 Order name: COVID-19/FLU A+B; Complete Time: 15:23 rn 10/13 15:47 Order name: Ferritin EDMS 10/13 15:47 Order name: PTH Intact EDWI 10/13 15:47 Order name: Retic Count EDMS 10/13 15:47 Order name: Thyroid Stimulating Hormone EDMS 10/13 15:47 Order name: Transferrin Sat/Iron Binding EDMS 10/13 13:59 Order name: EKG; Complete Time: 13:59 rn 10/13 15:47 Order name: Vitamin D,1,25 Dihydroxy EDMS 10/13 15:47 Order name: Renal Panel EDMS 10/13 15:47 Order name: Renal Panel EDMS 10/13 15:47 Order name: Renal Panel EDMS 10/13 15:47 Order name: Renal Panel EDMS 10/13 15:47 Order name: Renal Panel EDMS 10/13 15:47 Order name: Renal Panel EDMS 10/13 21:43 Order name: Urine Dipstick-Ancillary EDMS 10/14 05:38 Order name: CBC with Automated Diff EDMS 10/14 08:40 Order name: Glucose, Ancillary Testing EDMS 10/14 11:11 Order name: Glucose, Ancillary Testing EDMS 10/14 13:31 Order name: US EDMS 10/15 00:28 Order name: Glucose, Ancillary Testing EDMS 10/13 13:59 Order name: Accucheck; Complete Time: 14:03 rn 10/13 13:59 Order name: Cardiac monitoring; Complete Time: 14:03 rn 10/13 13:59 Order name: EKG - Nurse/Tech; Complete Time: 14:03 rn 10/13 13:59 Order name: IV Saline Lock - Large Bore; Complete Time: 15:27 rn 10/13 13:59 Order name: Labs collected and sent; Complete Time: 15:27 rn 10/13 13:59 Order name: O2 Per Protocol; Complete Time: 14:03 rn 10/13 13:59 Order name: O2 Sat Monitoring; Complete Time: 14:03 rn 10/13 13:59 Order name: Vital Signs; Complete Time: 14:03 rn EC:57 Rate is 65 beats/min. Rhythm is regular. QRS Simms is Normal. NV interval is normal. QRS rn interval is normal. QT interval is normal. No Q waves. T waves are Normal. No ST changes noted. Clinical impression: Normal ECG. Interpreted by me. Reviewed by me. Administered Medications: 14:21 Drug: NS 0.9% 250 ml Route: IV; Rate: bolus; Site: right antecubital; hb 16:43 Follow up: Response: No adverse reaction; IV Status: Completed infusion ph 20:10 Drug: Zofran (Ondansetron) 4 mg Route: IVP; Site: right antecubital; as6 10/14 07:00 Follow up: Response: No adverse reaction db Disposition Summary: 10/13/22 16:25 Hospitalization Ordered Hospitalization Status: Observation rn Provider: Vishnu Veras rn Condition: Stable rn Problem: new rn Symptoms: have improved rn Bed/Room Type: Standard rn Location: Telemetry/MedSurg (observation)(10/14/22 23:50) cg Room Assignment: 214(10/14/22 23:50) cg Diagnosis - End stage renal disease rn - Hypotension, unspecified rn Forms: - Medication Reconciliation Form rn - SBAR form rn Signatures: Dispatcher [employer] EDGenaro Anthony MD MD rn Hall, Patricia RN RN Afua Ambrosio, RN RN Christianne Schneider RN RN Stan Patel RN RN as6 Ericka Zhu rv1 Stephany Mata RN db Corrections: (The following items were deleted from the chart) 10/13 20:25 16:25 Telemetry/MedSurg (observation) rn rv1 20:25 16:25 rn rv1 10/14 23:50 10/13 20:25 [facility] ER [facility] rv1 cg 10/14 23:50 10/13 20:25 ERHOLD- rv1 cg
--- NOTE | 2022-10-13 16:48 | CON ---
Date of Consultation: 10/13/2022 Reason For Consultation: Elevated BUN and creatinine, dialysis management. History Of Present Illness: This is a 71-year-old pleasant gentleman with significant past medical history of diabetes complicated with neuropathy, nephropathy, hypertension, hyperlipidemia, end-stage renal disease, on dialysis started a week ago at the [place]. He has chronic kidney disease secondary to diabetes, CAD and cardiorenal/JOCELINE through [facility]. The patient recently discharged from the [facility]. The patient went to dialysis today, developed hypotension with nausea and vomiting. For that reason, the patient referred to the hospital. Upon arrival to the hospital, blood pressure 90/60. The patient is still nauseated. Past Medical History: Includes; 1. Diabetes complicated with neuropathy, nephropathy. 2. Hypertension. 3. CAD, status post PTCA. 4. End-stage renal disease. Allergies: NO KNOWN DRUGS ALLERGY. Family History: Positive for hypertension and diabetes. Social History: Denied alcohol, denied drugs abuse. Home Medications: Include carvedilol and insulin. Review of Systems: Head and Neck: Has lightheaded. GI: Has nausea. : No polyuria. Has Solano catheter. [employer] Support: Not applicable. Respiratory: No shortness of breath. Cardiovascular: No chest pain. No shortness of breath. Endocrine: No polydipsia. Skin: No rash. Physical Examination: Vital Signs: When I saw the patient; blood pressure 89/60, pulse of 88. Chest: Clear to auscultation. Heart: S1, S2. Regular. Abdomen: Soft, nontender. Extremities: Plus edema. Neurologic: Alert. No focality. Laboratory Data: Sodium 135, potassium 3.9, bicarb 30, BUN 29, creatinine 3.1, calcium 9.7, hemoglobin 8.6. Assessment And Plan: 1. End-stage renal disease with low blood pressure. I am going to arrange for the patient for dialysis tomorrow. We will dialyze the patient on low-potassium bath and we will follow up. The patient will use sodium module and albumin for blood pressure support and I am going to use midodrine before dialysis and we will follow up. 2. Hypertension, currently hypotension, low blood pressure. We will hold all blood pressure medications. We will use midodrine. 3. Anemia of chronic kidney disease. Resume Retacrit. 4. Secondary hyperparathyroidism. We will follow phosphorus and PTH. 5. Diabetes as by primary. 6. Coronary artery disease with low blood pressure. We will follow up with the primary. 7. Hyponatremia, will be corrected with dialysis. Time spent examining the patient [id number] placing order reviewing data lab and radiology discussing the case with the patient discussing the case with the stationary steam engineer nursing staff and hospitalist more than 65-minute JEFF Voice ID: [id number] Report ID: [id number] LASHAWN
[2022-10-13] MEDS ORDERED: ONDANSETRON 4 MG/2 ML VIAL ONE (20:08)
--- NOTE | 2022-10-13 20:25 | P.HP ---
Certification for Inpatient Patient admitted to: Observation With expected LOS: <2 Midnights Patient will require the following post-hospital care: None Practitioner: I am a practitioner with admitting privileges, knowledge of patient current condition, hospital course, and medical plan of care. Services: Services provided to patient in accordance with Admission requirements found in Title 42 Section 412.3 of the Code of Federal Regulations Patient History Date of Service: 10/13/22 Reason for admission: Hypotension, ESRD History of Present Illness: 71-year-old male with history of ESRD on HD TTS, insulin-dependent diabetes, orthostatic hypotension presented to outpatient dialysis center for his dialysis session when he was found to be hypotensive with a blood pressure in the 80s. He was referred to the emergency department for evaluation, during his evaluation and in the emergency department his blood pressure remained on the low side but did not require intervention/IV fluids. He was seen by his transit worker in the ED recommend admission under observation for dialysis/further monitoring of hypotension. No infective processes were noted. Patient with chronic indwelling Solano catheter for BPH. - Past Medical/Surgical History -: ESRD/HD -: DMII-insulin dependent -: HTN -: HLD -: BPH -: CAD -: Endarterectomy -: Dialysis catheter Right chest Psychosocial/ Personal History: Pt lives at home with his daughter, is a pt of the [place] - Family History Mother -: Heart disease - Social History Smoking Status: Former smoker Alcohol use: No CD- Drugs: No Caffeine use: Yes Place of Residence: Home Review of Systems 10-point ROS is otherwise unremarkable General: Malaise Physical Examination - Physical Exam General: Alert, In no apparent distress, Oriented x3 HEENT: Atraumatic, PERRLA, Mucous membr. moist/pink, EOMI, Sclerae nonicteric Neck: Supple, 2+ carotid pulse no bruit, No LAD, Without JVD or thyroid abnormality Respiratory: Diminished Cardiovascular: Regular rate/rhythm, Normal S1 S2, Edema Capillary refill: <2 Seconds Gastrointestinal: Normal bowel sounds, No tenderness Musculoskeletal: No tenderness Integumentary: No rashes Neurological: Normal speech, Normal strength at 5/5 x4 extr, Normal tone, Normal affect - Studies Laboratory Data (last 24 hrs) 10/13/22 15:01: PT 12.6 H, INR 1.15, APTT 31.4 10/13/22 15:01: Sodium 135 L, Potassium 3.9, BUN 29 H, Creatinine 3.12 H, Glucose 148 H, Total Bilirubin 0.7, AST 19, ALT 24, Alkaline Phosphatase 118 H 10/13/22 15:01: WBC 4.80, Hgb 8.6 L, Hct 25.6 L, Plt Count 138 L Assessment and Plan - Plan Assessment: ESRD on HD Hypotension Diabetes mellitus 2insulin-dependent Normocytic anemia Hypertension Hyperlipidemia History of CAD Plan: ESRD on HD: Nephrology consulted, will manage with dialysis. Hypotension: Midodrine ordered by nephrology, pt with known hx of orthostatic hypotension. Diabetes mellitus 2insulin-dependent: ACHS accucheck, SSI Normocytic anemia: Suspect anemia of chronic disease, no active bleeding reported, Will obtain iron studies in the morning. Hypertension: History of, BP currently on the low side, hold meds. Hyperlipidemia: Continue home meds. History of CAD: Continue home meds. DVT PPX: Heparin Code status: Full Discharge Plan: Home Plan to discharge in: 24 Hours - Advance Directives Does patient have a Living Will: No Does patient have a Durable POA for Healthcare: No - Code Status/Comfort Care Code Status Assessed: Yes (Full code) Critical Care: No Time Spent Managing Pts Care (In Minutes): 55
[2022-10-13 21:42] LABS: Urine Blood 2+ (Negative); Urine Glucose Negative (Negative); Urine Protein 3+ (Negative); Urine Specific Gravity >=1.030 (1.005-1.030)
[2022-10-13] MEDS: HEPARIN 5000 UNIT/ML 1 ML VIAL SQ SCH (22:03)
[2022-10-13] MEDS ORDERED: ACETAMINOPHEN 500 MG TAB PO PRN (22:03)
[2022-10-13] MEDS: INSULIN -REGULAR HUMAN 50 UNIT/0.5 ML ML SQ SCH (22:03)
[2022-10-13] MEDS ORDERED: ONDANSETRON 4 MG/2 ML VIAL IV PRN (22:03)
[2022-10-13 22:05] LABS: Urine Bacteria <20 /HPF (<20); Urine Crystals Unidentified Moderate /HPF (None Seen); Urine Granular Casts >20 /LPF (None Seen); Urine Mucus Slight /HPF (None Seen); Urine RBC >50 /HPF (None Seen); Urine WBC Clump Many /HPF (None Seen)
[2022-10-14 05:33] LABS: Absolute Lymphocytes (CBC) 0.4 K/uL (0.7-4.9); Hematocrit 24.9 % (39.6-49.0); Lymphocytes % 6.7 % (15.3-44.8); MCV 87.7 fL (80-100); MPV 7.5 fL (7.6-11.3); RBC Red Blood Cell Count 2.84 M/uL (4.33-5.43)
[2022-10-14 06:08] LABS: Albumin 3.3 g/dL (3.4-5.0); Ferritin 822.7 ng/mL (26-388); Potassium 4.2 mmol/L (3.5-5.1); Thyroid Stimulating Hormone 0.802 uIU/mL (0.358-3.740)
[2022-10-14] MEDS: INSULIN -REGULAR HUMAN 50 UNIT/0.5 ML ML SQ SCH ×4 (07:30→21:00)
[2022-10-14] MEDS ORDERED: Levofloxacin 750mg IV 750 MG/150 ML BAG IV ONE ×2 (08:00→09:33)
[2022-10-14] MEDS: HEPARIN 5000 UNIT/ML 1 ML VIAL SQ SCH (09:00)
[2022-10-14] MEDS ORDERED: HEPARIN 5000 UNIT/ML 1 ML VIAL ONE (09:33)
--- NOTE | 2022-10-14 13:30 | RAD REPORT ---
EXAM DESCRIPTION: US - Renal Ultrasound-Complete - 10/14/2022 1:06 pm CLINICAL HISTORY: renal failure hypotension COMPARISON: No comparisonsNone. FINDINGS: Visualization of the right kidney is suboptimal due to prominent bowel. The right kidney measures grossly 10.3 x 6.6 cm. The left kidney measures grossly 11.9 x 5.6 cm. Larry al cortical thickness and echogenicity are normal. No hydronephrosis or suspicious renal mass. Bladder is fully contracted around a Solano catheter. IMPRESSION: No hydronephrosis or suspicious renal mass. Cortical thickness and echogenicity within range of normal.
[2022-10-14] MEDS: MIDODRINE HCL 5 MG TABLET PO PRN (16:19)
[2022-10-14] MEDS ORDERED: ALBUMIN HUMAN 25% 100 ML IV ONE (18:00)
[2022-10-14] MEDS: EPOETIN ALFA 10,000 UNIT/ML VIAL IV SCH (18:29)
--- NOTE | 2022-10-14 22:57 | P.PN ---
Date of Service: 10/14/22 Subjective: no acute events overnight upset with room accommodations, uncomfortable stretcher no dizziness/lightheadedness ROS: A complete review of systems was performed and is negative except as mentioned above Physical Exam: Gen: NAD, AOx3 HEENT: normal conjunctiva, sclera anicteric CV: regular rate & rhythm, 1-2+ edema in lower extremities Pulm: non-labored respirations, clear bilaterally Abd: soft, non-tender, non-distended Neuro: normal speech, normal affect, moves all extremities vitals reviewed Problem List ESRD on HD Hypotension Diabetes mellitus 2insulin-dependent Normocytic anemia Hypertension Hyperlipidemia History of CAD recently discharged from [facility] 2-3 days ago, after 3 week hospitalization, where he was started on dialysis suspect intravascularly depleted, pt has not been eating well for last ~3 days nephrology consulted UA without bacteria, +pyuria, concern for possible infection; patient with mitchell for several months, possible contamination. patient is oliguric empiric levaquin, renally dosed accucheks, SSI monitor vitals continue home meds, hold anti-hypertensives scheduled for dialysis today potentially discharge home if tolerates HD ok, monitor BP midodrine with HD Code: full Dispo: home, ~1 day Time Spent Managing Pts Care (In Minutes): 35
[2022-10-15] MEDS ORDERED: HEPARIN 5000 UNIT/ML 1 ML VIAL ONE (00:32)
[2022-10-15] MEDS: HEPARIN 5000 UNIT/ML 1 ML VIAL SQ SCH ×2 (00:35→10:35)
[2022-10-15 01:11] VITALS: BMI 5253.0
--- NOTE | 2022-10-15 01:57 | PN ---
Date of Progress Note: 10/14/2022 Chief Complaint: Elevated BUN and creatinine. Subjective: The patient was recently started on hemodialysis. He is 71-year-old man with past medic al history significant for diabetic kidney disease, peripheral neuropathy, nephropathy, hypertension, and hyperlipidemia. Patient was started on dialysis last week at [facility] in [place]. He has hi story of chronic kidney disease secondary to diabetes mellitus. Recently, he was discharged from [facility] and he had a PermCath placed at the [facility] for dialysis access. Patient on arrival to the hospital was found to have hypotension. He was feeling nauseated. The patient is feeling better today. Review of Systems: Denies fever or chills. Physical Examination: Lungs: Clear to auscultation bilaterally. Heart: S1, S2. Abdomen: Soft. Extremities: Edema present. Impression And Plan: 1.End-stage renal disease. Dialysis will be done today. Patient will have mild ultrafiltration. P cheryl is to monitor blood pressure to prevent intradialytic hypotension. Patient received midodrine fo r blood pressure support. 2.Anemia of chronic kidney disease. Continue ILENE. 3.Secondary hyperparathyroidism. Monitor phosphorus level and check PTH. 4.Diabetes mellitus. Continue insulin. Patient is not a candidate for metformin due to kidney insu fficiency. 5.Coronary artery disease with hypotension. Patient may need cardiac workup. Further recommendatio ns from Cardiology. 6.Hyponatremia secondary to volume overload and plan is to continue ultrafiltration and low-sodium d iet. FADUMO/NURIA Voice ID: [id number] Report ID: [id number]
[2022-10-15 05:30] LABS: Absolute Lymphocytes (CBC) 0.5 K/uL (0.7-4.9); Hematocrit 23.9 % (39.6-49.0); Lymphocytes % 9.4 % (15.3-44.8); MCV 87.2 fL (80-100); MPV 7.6 fL (7.6-11.3); RBC Red Blood Cell Count 2.74 M/uL (4.33-5.43)
[2022-10-15 05:47] LABS: Albumin 3.2 g/dL (3.4-5.0); Phosphorus 1.6 mg/dL (2.5-4.9); Potassium 3.6 mmol/L (3.5-5.1)
[2022-10-15] MEDS ORDERED: BISACODYL 10 MG RECTAL SUPP PR PRN (07:05)
[2022-10-15] MEDS: INSULIN -REGULAR HUMAN 50 UNIT/0.5 ML ML SQ SCH ×3 (07:30→16:30)
--- NOTE | 2022-10-15 11:42 | PN ---
Date of Progress Note: 10/15/2022 Subjective: The patient was admitted with hypotension from the dialysis. The patient was dialyzed yesterday, tolerated the dialysis very well. Today, the patient is completely asymptomatic. Physical Examination: Vital Signs: Blood pressure 136/68, pulse of 70, afebrile. Chest: Decreased entry bilateral base. Heart: S1, S2. Regular. Abdomen: Soft, nontender. Solano catheter. Extremity: Trace edema. Neurologic: Alert. No focality. Laboratory Data: Hemoglobin 7.9. Sodium 136, potassium 3.6, bicarb 28, BUN 28, creatinine 0.8, GFR of 13, calcium 8.9, phosphorus 1.6, albumin 3.2. Corrected calcium is 9.7. Current Medications: The patient on include; 1. Levaquin. 2. Midodrine 5 mg before each dialysis. 3. Epogen. 4. Tylenol. 5. Bisacodyl. Assessment And Plan: 1. End-stage renal disease. I am going to continue the patient on dialysis. We will do 1 session of dialysis today and we will follow up the patient. The patient is going to be dialyzed on high potassium bath and we will do minimal ultrafiltration. We will follow up. 2. Hypertension, currently hypotension. Hold all blood pressure medications. 3. Diabetes as by primary. 4. Urinary tract infection. The patient was started on Levaquin. We will follow up culture. I had long discussion with the patient as the patient oliguric to removed Solano. The patient still insist to have it. 5. Deconditioning. Continue PT/OT. Time spent examining the patient [id number] placing order reviewing data lab and radiology discussing the case with the patient discussing the case with the wallpaper remover steam nursing staff and hospitalist more than 35-minute KUSUM/NURIA Voice ID: [id number] Report ID: [id number] LASHAWN
[2022-10-15] MEDS: MIDODRINE HCL 5 MG TABLET PO PRN (14:54)
[2022-10-15 16:25] VITALS: O2SAT 97
--- NOTE | 2022-10-15 16:54 | P.DS ---
Admission Date: 10/13/22 Discharge Date: 10/15/22 Disposition: ROUTINE DISCHARGE Discharge Condition: GOOD Reason for Admission: Hypotension, ESRD Consultations: Nephrology - Carmen / Zan Brief History of Present Illness: 71-year-old male with history of ESRD on HD TTS, insulin-dependent diabetes, orthostatic hypotension presented to outpatient dialysis center for his dialysis session when he was found to be hypotensive with a blood pressure in the 80s. He was referred to the emergency department for evaluation, during his evaluation and in the emergency department his blood pressure remained on the low side but did not require intervention/IV fluids. He was seen by his revenue liaison in the ED recommend admission under observation for dialysis/further monitoring of hypotension. No infective processes were noted. Patient with chronic indwelling Mitchell catheter for BPH. Hospital Course: Problem List ESRD on HD Hypotension Diabetes mellitus 2insulin-dependent Normocytic anemia Hypertension Hyperlipidemia History of CAD Patient was brought to ED due to low blood pressure at dialysis center. Upon arrival to the ED, his blood pressure was improved and was feeling ok. He was recently discharged from the [facility] ~48hrs prior to this event and had only eaten 1 decent meal. Suspect he had some intravascular depletion on top of his already known orthostatic hypotension. Initial urine testing was concerning for pyurta and bacteruria so he was empirically treated with IV levaquin, however on further discussion, patient did not have any UTI symptoms, no fever, no leukocytosis, no pain. He has a chronic indwelling mitchell catheter. After discussion with nephrology, This was felt to be asymptomatic bacteruria / colonization of catheter and patient will not continue on antibiotics. Patient was recently started on dialysis and is oliguric. Both myself and nephrology counselled patient on removing mitchell. He insists on keeping it due to his bladder not functioning. Discussed to f/u with his PCP / Urology to discuss if a suprapubic catheter would be recommended. He underwent dialysis two days in a row, with midodrine given for low blood pressure. He tolerated well, and was at his baseline. He was deemed stable for discharge home. To resume usual schedule of dialysis Continue home medications as previously prescribed. Vital Signs/Physical Exam: Temp Pulse Resp BP Pulse Ox 97.1 F 66 16 151/67 H 96 10/15/22 12:00 10/15/22 12:00 10/15/22 12:00 10/15/22 12:00 10/15/22 12:00 General: Alert, In no apparent distress, Oriented x3 HEENT: EOMI, Sclerae nonicteric Neck: Supple, No LAD Respiratory: Clear to auscultation bilaterally, Normal air movement Cardiovascular: Regular rate/rhythm, Edema (mild) Gastrointestinal: Soft and benign, Non-distended, No tenderness Musculoskeletal: No contractures, No tenderness Integumentary: No rashes, No significant lesion Neurological: Normal speech, Normal affect Urinary: Mitchell catheter Laboratory Data at Discharge: WBC 5.50 K/uL (4.3-10.9) 10/15/22 05:06 Hgb 7.9 g/dL (13.6-17.9) L 10/15/22 05:06 Hct 23.9 % (39.6-49.0) L 10/15/22 05:06 Plt Count 93 K/uL (152-406) L 10/15/22 05:06 PT 12.6 SECONDS (9.5-12.5) H 10/13/22 15:01 INR 1.15 10/13/22 15:01 APTT 31.4 SECONDS (24.3-36.9) 10/13/22 15:01 Sodium 136 mmol/L (136-145) 10/15/22 05:06 Potassium 3.6 mmol/L (3.5-5.1) D 10/15/22 05:06 BUN 28 mg/dL (7-18) H 10/15/22 05:06 Creatinine 2.87 mg/dL (0.70-1.30) H 10/15/22 05:06 Glucose 119 mg/dL (74-106) H 10/15/22 05:06 Phosphorus 1.6 mg/dL (2.5-4.9) L 10/15/22 05:06 Total Bilirubin 0.7 mg/dL (0.2-1.0) 10/13/22 15:01 AST 19 U/L (15-37) 10/13/22 15:01 ALT 24 U/L (16-61) 10/13/22 15:01 Alkaline Phosphatase 118 U/L (45-117) H 10/13/22 15:01 Physician Discharge Instructions: Patient was brought to ED due to low blood pressure at dialysis center. Upon arrival to the ED, his blood pressure was improved and was feeling ok. He was recently discharged from the [place] [facility] ~48hrs prior to this event and had only eaten 1 decent meal. Suspect he had some intravascular depletion on top of his already known orthostatic hypotension. Initial urine testing was concerning for pyurta and bacteruria so he was empirically treated with IV levaquin, however on further discussion, patient did not have any UTI symptoms, no fever, no leukocytosis, no pain. He has a chronic indwelling mitchell catheter. After discussion with nephrology, This was felt to be asymptomatic bacteruria / colonization of catheter and patient will not continue on antibiotics. Patient was recently started on dialysis and is oliguric. Both myself and nephrology counselled patient on removing mitchell. He insists on keeping it due to his bladder not functioning. Discussed to f/u with his PCP / Urology to discuss if a suprapubic catheter would be recommended. He underwent dialysis two days in a row, with midodrine given for low blood pressure. He tolerated well, and was at his baseline. He was deemed stable for discharge home. To resume usual schedule of dialysis Continue home medications as previously prescribed. Diet: Renal Followup: NONE,NONE [Primary Care Provider] - Time spent managing pt's care (in minutes): 45
[2022-10-15] MEDS: EPOETIN ALFA 10,000 UNIT/ML VIAL IV SCH (17:00)
[2022-10-15 21:19] VITALS: BP 122/59; TEMP 98
[2022-10-16] MEDS ORDERED: Levofloxacin500mg IV 500 MG/100 ML BAG IV SCH (08:00)
--- NOTE | 2022-10-17 15:08 | EKG ---
Test Date: 2022-10-13 Test Time: 14:01:01 Jewel Bearing Grinder: LEONARDO MEASUREMENT RESULTS: Intervals: Rate: 65 OK: 174 QRSD: 90 QT: 442 QTc: 459 [place]: P: 113 OK: 174 QRS: -6 T: 32 INTERPRETIVE STATEMENTS: Normal sinus rhythm Normal ECG No previous ECG available for comparison Electronically Signed On 10-17-22 14:59:35 MEDICAL INVESTIGATOR by Jose Keita
[2022-10-19 16:19] LABS: Vitamin D 1,25-Dihydroxy Total 10 pg/mL (18-72); Vitamin D,1,25-OH2, D2 <8 pg/mL
== END 2022-10-15 20:55 | disposition home or self-care (01) | DRG 312 ==
LOC: ER 13:51 → EDBD 13:51 → ERHOLD 19:37 → 2ND 10-15 00:49 → OBSVTOIN 10-15 14:07
PROVIDERS: ADMIT Hospitalist; ATTEND Hospitalist
PROC: 5A1D70Z Performance of Urinary Filtration, Intermittent, Less than 6 Hours Per Day (ICD-10-PCS; principal; 2022-10-15)
DX: I95.1 Orthostatic hypotension (principal); N18.6 End stage renal disease; E87.1 Hypo-osmolality and hyponatremia; N25.81 Secondary hyperparathyroidism of renal origin; E11.22 Type 2 diabetes mellitus with diabetic chronic kidney disease; E11.40 Type 2 diabetes mellitus with diabetic neuropathy, unspecified; D63.1 Anemia in chronic kidney disease; N40.0 Benign prostatic hyperplasia without lower urinary tract symptoms; E78.5 Hyperlipidemia, unspecified; E87.70 Fluid overload, unspecified; I25.10 Atherosclerotic heart disease of native coronary artery without angina pectoris; Z88.8 Allergy status to other drugs, medicaments and biological substances; Z79.4 Long term (current) use of insulin; Z99.2 Dependence on renal dialysis; Z87.891 Personal history of nicotine dependence; Z20.822 Contact with and (suspected) exposure to COVID-19
CPT/HCPCS: 0240U; 36415; 76770; 80053; 80069; 81003; 81015; 82652; 82728; 82947; 83540; 83605; 83970; 84443; 84466; 85025; 85044; 85610; 85730; 87040; 87070; 87077; 87086; 87088; 87186; 87205; 90935; 93005; 96361; 96374; 99285; G0378; J1644; J2250; J2405; J7040; J7050; P9047

== ENCOUNTER 2022-11-05 12:57 | Inpatient (IN) | payer OTHER ==
--- OUTSIDE RECORDS SUMMARY | 2022-11-05 13:16 | XMS REPORT | Continuity of Care Document ---
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 Results, Start date: 07/16/18 0:19:00 CDT, Duration: 30 day, Stop date: 08/15/18 0:18:00 CDT Insulin No Notes: Memoria (regular) 9-10 (Same as: l Titrate IV 05:19: Humulin R He rmann additive 00 and 100 unit + NovoLIN R) Sodium WASTE: F/P Chloride - Black; E 0.9% - (titrate) Municipal 99 mL Trash Bin (Do not shake) D5NS 1,000 20180 No 1,000 mL, Me moria mL -10 Rate: 250 l 05:19: ml/hr, Infuse over: 4 hr, Route: IV, Dosing Weight 141.038 kg, Total Volume: 1,000, Start date: 07/16/18 0:19:00 CDT, Duration: 30 day, Stop date: 08/15/18 0:18:00 CDT, 2.64, m2 Sodium 20180 No 1,000 mL, Memori a Chloride 9-10 Rate: 50 l 0.9% IV 05:19: ml/hr, [place] 1,000 mL 00 Infuse over: 20 hr, Route: IV, Dosing Weight 141.038 kg, Total Volume: 1,000, When Finger stick blood glucose values remain ABOVE 250 mg/dL administer until BG is less than 250 mg/dL., Start date: 07/16/18 0:19:00 CDT, Durati... potassium No Notes: Memori a phosphate 9-10 (Same as: l 05:19: K Jong 00 Phosphate. ) Do not infuse phosphorou s concurrent ly in the same line as TPN or IVF that contains calcium. For double lumen central lines, phosphorou s may be infused in a separate lumen from TPN. 1 mMol phoshate has 1.47 mEq potassium Infuse over 4 hours Magnesium No Notes: Memori a Sulfate 07-16 WASTE: F/P l 05:19: - Sink; E [place] 00 - [facility] Trash Bin Potassium No Notes: Memori a Chloride 9-10 (Same as: l 05:19: KCL) Jong 00 Infuse no faster than 10 mEq/hr if given peripheral ly. Dextrose No 25 gm, 50 Tim bernard 50% Syringe 9-10 mL, Route: l 05:19: IVP, Drug [place] 00 Form: INJ, Dosing Weight 141.038, kg, PRN, PRN Blood Glucose Results, Start date: 07/16/18 0:19:00 CDT, Duration: 30 day, Stop date: 08/15/18 0:18:00 CDT Glucagon No 1 mg, Memoria 07-16 Route: IM, l 05:19: Drug form: Jong 00 PDR/INJ, PRN, Dosing Weight 141.038, kg, PRN Blood Glucose Results, Start date: 07/16/18 0:19:00 CDT, Duration: 30 day, Stop date: 08/15/18 0:18:00 CDT Insulin No Notes: Memoria (regular) 9-10 (Same as: l Titrate IV 05:19: Humulin R He rmann additive 00 and 100 unit + NovoLIN R) Sodium WASTE: F/P Chloride - Black; E 0.9% - (titrate) Municipal 99 mL Trash Bin (Do not shake) D5NS 1,000 No 1,000 mL, Me moria mL 9-10 Rate: 250 l 05:19: ml/hr, Jong 00 Infuse over: 4 hr, Route: IV, Dosing Weight 141.038 kg, Total Volume: 1,000, Start date: 07/16/18 0:19:00 CDT, Duration: 30 day, Stop date: 08/15/18 0:18:00 CDT, 2.64, m2 Sodium 2017-0 No 1,000 mL, Memori a Chloride -10 Rate: 50 l 0.9% IV 05:19: ml/hr, [place] 1,000 mL 00 Infuse over: 20 hr, [...] Dextrose No 50 mL, Memoria 50% Syringe 9-10 Route: l 04:59: IVP, Jong Dosing Weight [...] Syringe 07-16 Route: l 04:59: IVP, Jong 00 Dosing Weight 141.038, kg, PRN, PRN Abnormal Lab Result, Start date: 07/15/18 23:59:00 CDT, Duration: 30 day, Stop date: 08/14/18 23:58:00 CDT, For FSBG < 40 mg/dL Insulin No Notes: Memoria regular 100 - (Same as: l unit + 04:59: Humulin R Gaetano n Sodium 00 and Chloride NovoLIN R) 0.9% WASTE: F/P (titrate) - Black; E 99 mL - [facility] Trash Bin (Do not shake) Insulin No Notes: Memoria (regular) 07-16 (Same as: l Titrate IV 04:57: Humulin R He rmann additive 00 and 100 unit + NovoLIN R) Sodium WASTE: F/P Chloride - Black; E 0.9% - (titrate) Municipal 99 mL Trash Bin (Do not shake) Insulin No Notes: Memoria (regular) -10 (Same as: l Titrate IV 04:57: Humulin R He rmann additive 00 and 100 unit + NovoLIN R) Sodium WASTE: F/P Chloride - Black; E 0.9% - (titrate) Municipal 99 mL Trash Bin (Do not shake) Insulin No Notes: Memoria (regular) -10 (Same as: l Titrate IV 04:57: Humulin [...] oria 9-10 to exceed l 04:26: 400mg/day. Jong 00 (Same As: Ultram) Tramadol No Notes: Not Mem oria 9-10 to exceed l 04:26: 400mg/day. Jong 00 (Same As: Ultram) Tramadol No Notes: Not Mem oria 9-10 to exceed l 04:26: 400mg/day. Jong 00 (Same As: Ultram) Insulin No Notes: [...] 10 mEq/hr if given peripheral ly. Magnesium 2018-0 No Notes: Memori a Sulfate 07-16 WASTE: F/P l 03:49: - Sink; E Jong 00 - [facility] Trash Bin Glucagon No 1 mg, Memoria 07-16 Route: IM, l 03:49: Drug form: Jong 00 PDR/INJ, PRN, Dosing Weight 141.038, kg, PRN Blood Glucose Results, Start date: 07/15/18 22:49:00 CDT, Duration: 30 day, Stop date: 08/14/18 22:48:00 CDT Sodium 2018-0 No 1,000 mL, Memori a Chloride 07-16 Rate: 250 l 0.9% IV 03:49: ml/hr, [place] 1,000 mL 00 Infuse over: 4 hr, Route: IV, Dosing Weight 141.038 kg, Total Volume: 1,000, When Finger stick blood glucose values remain ABOVE 250 mg/dL administer until BG is less than 250 mg/dL., Start date: 07/15/18 22:49:00 CDT, Durat... D5NS 1,000 0 No 1,000 mL, Me moria mL 07-16 Rate: 250 l 03:49: ml/hr, Infuse over: 4 hr, Route: IV, Dosing Weight 141.038 kg, Total Volume: 1,000, Start date: 07/15/18 22:49:00 CDT, Duration: 30 day, Stop date: 08/14/18 22:48:00 CDT, 2.64, m2 Insulin 0 No Notes: Memoria (regular) 07-16 (Same as: l Titrate IV 03:49: Humulin R He rmann additive 00 and 100 unit + NovoLIN R) Sodium WASTE: F/P Chloride - Black; E 0.9% - (titrate) Municipal 99 mL Trash Bin (Do not shake) Dextrose No 12.5 gm, Memor ia 50% Syringe 10 25 mL, l 03:49: Route: Jong 00 IVP, Drug Form: INJ, Dosing Weight 141.038, kg, PRN, PRN Blood Glucose Results, Start date: 07/15/18 22:49:00 CDT, Duration: 30 day, Stop date: 08/14/18 22:48:00 CDT potassium 20180 No Notes: Memori a phosphate 9-10 (Same as: l 03:49: K [place] 00 Phosphate. ) Do not infuse phosphorou s concurrent ly in the same line as TPN or IVF that contains calcium. For double lumen central lines, phosphorou s may be infused in a separate lumen from TPN. 1 mMol phoshate has 1.47 mEq potassium Infuse over 4 hours Potassium No Notes: Memori a Chloride 9-10 (Same as: l 03:49: KCL) [place] 00 Infuse no faster than 10 mEq/hr if given peripheral ly. Magnesium No Notes: Memori a Sulfate 07-16 WASTE: F/P l 03:49: - Sink; E Jong 00 - [facility] Trash Bin Glucagon No 1 mg, Memoria 07-16 Route: IM, l 03:49: Drug form: [place] 00 PDR/INJ, PRN, Dosing Weight 141.038, kg, PRN Blood Glucose Results, Start date: 07/15/18 22:49:00 CDT, Duration: 30 day, Stop date: 08/14/18 22:48:00 CDT Sodium No 1,000 mL, Memori a Chloride 07-16 Rate: 250 l 0.9% IV 03:49: ml/hr, [place] 1,000 mL 00 Infuse over: 4 hr, Route: IV, Dosing Weight 141.038 kg, Total Volume: 1,000, When Finger stick blood glucose values remain ABOVE 250 mg/dL administer until BG is less than 250 mg/dL., Start date: 07/15/18 22:49:00 CDT, Durat... D5NS 1,000 No 1,000 mL, Me moria mL 07-16 Rate: 250 l 03:49: ml/hr, Jong 00 [...] Syringe 9-10 25 mL, l 03:49: Route: [place] 00 IVP, Drug Form: INJ, Dosing Weight 141.038, kg, PRN, PRN Blood Glucose Results, Start date: 07/15/18 22:49:00 CDT, Duration: 30 day, Stop date: 08/14/18 22:48:00 CDT potassium No Notes: Memori a phosphate 9-10 (Same as: l 03:49: K Phosphate. ) Do not infuse phosphorou [...] ly. Magnesium No Notes: Memori a Sulfate 9-10 WASTE: F/P l 03:49: - Sink; E - [facility] Trash Bin Glucagon No 1 mg, Memoria 9-10 Route: IM, l 03:49: Drug form: Jong 00 PDR/INJ, PRN, Dosing Weight 141.038, kg, PRN Blood Glucose Results, Start date: 07/15/18 22:49:00 CDT, Duration: 30 day, Stop date: 08/14/18 22:48:00 CDT Sodium 2017- No 1,000 mL, Memori a Chloride 9-10 Rate: 250 l 0.9% IV 03:49: ml/hr, Jong 1,000 mL 00 Infuse over: 4 hr, Route: IV, Dosing Weight 141.038 kg, Total Volume: 1,000, When Finger stick blood glucose values remain ABOVE 250 mg/dL administer until BG is less than 250 mg/dL., Start date: 07/15/18 22:49:00 CDT, Durat... D5NS 1,000 2018-0 No 1,000 mL, Me moria mL 9-10 Rate: 250 l 03:49: ml/hr, Infuse over: [...] Syringe 9-10 25 mL, l 03:49: Route: IVP, Drug Form: INJ, Dosing Weight 141.038, kg, PRN, PRN Blood Glucose Results, Start date: 07/15/18 22:49:00 CDT, Duration: 30 day, Stop date: 08/14/18 22:48:00 CDT Dextrose No 25 gm, 50 Tim bernard 50% Syringe 9-10 mL, Route: l 03:29: IVP, Drug Form: INJ, Dosing Weight 141.038, [...] [facility] Trash Bin (Do not shake) Dextrose 0 No 25 gm, 50 Tim bernard 50% Syringe 9-10 mL, Route: l 03:29: IVP, Drug Form: INJ, Dosing Weight 141.038, [...] 25 gm, 50 Tim bernard 50% Syringe 910 mL, Route: l 03:29: IVP, Drug Jong 00 Form: INJ, Dosing [...] en 07-15 acetaminop l 23:00: hen 4000 [place] 00 mg/day (4 gm/day). (Same as: Tylenol Extra Strength) acetaminoph No Notes: Max Memoria en 07-15 acetaminop l 23:00: hen 4000 [place] 00 mg/day (4 gm/day). (Same as: Tylenol Extra Strength) acetaminoph No Notes: Max Memoria en 07-15 acetaminop l 23:00: hen 4000 [place] 00 mg/day (4 gm/day). (Same as: Tylenol Extra Strength) Dextrose No 12.5 gm, Memor ia 50% Syringe 07-15 25 mL, l 22:27: Route: Jong 00 IVP, Drug Form: INJ, Dosing Weight 141.038, kg, PRN, PRN Abnormal Lab Result, Start date: 07/15/18 17:27:00 CDT, Duration: 30 day, Stop date: 08/14/18 17:26:00 CDT, For FSBG 40 mg/dL - 60 mg/dL Insulin 2018-0 No 60 units) Tim bernard regular 07-15 WASTE: F/P l 22:27: - Black; E Jong - [facility] Trash Bin Stable for 28 days at room temperatur e Expires in days from ____Date Dextrose 20180 No 12.5 gm, Memor ia 50% Syringe 07-15 25 mL, l 22:27: Route: Jong 00 IVP, Drug Form: INJ, Dosing Weight 141.038, kg, PRN, PRN Abnormal Lab Result, Start date: 07/15/18 17:27:00 CDT, Duration: 30 day, Stop date: 08/14/18 17:26:00 CDT, For FSBG 40 mg/dL - 60 mg/dL Insulin 2018-0 No 60 units) Tim bernard regular 07-15 WASTE: F/P l 22:27: - Black; E Jong - [facility] Trash Bin Stable for 28 days at room temperatur e Expires in days from ____Date Dextrose 0 No 12.5 gm, Memor ia 50% Syringe 07-15 25 mL, l 22:27: Route: [place] 00 IVP, Drug Form: INJ, Dosing Weight 141.038, kg, PRN, PRN Abnormal Lab Result, Start date: 07/15/18 17:27:00 CDT, Duration: 30 day, Stop date: 08/14/18 17:26:00 CDT, For FSBG 40 mg/dL - 60 mg/dL Insulin 2018-0 No 60 units) Tim bernard regular 07-15 WASTE: F/P l 22:27: - Black; E Jong - [facility] Trash Bin Stable for 28 days at room temperatur e Expires in days from ____Date albumin 2018-0 No Notes: Lot Tim bernard human 25% 07-15 #: l intravenous 20:41: Jong solution 00 ___ Mfg: (Same as: Plasbumin- 25) "blood product derivative " WASTE: F/P - Red; E -Red MEDICATION WASTE Product Size: 25 gm Product Wasted: ___ gm albumin No Notes: Lot Tim gann 25% 07-15 #: l intravenous 20:41: [place] solution 00 ___ Mfg: (Same as: Plasbumin- 25) "blood product derivative " WASTE: F/P - Red; E -Red MEDICATION WASTE Product Size: 25 gm Product Wasted: ___ gm albumin No Notes: Lot Tim gann 25% 07-15 #: l intravenous 20:41: [place] solution 00 ___ Mfg: (Same as: Plasbumin- 25) "blood product derivative " WASTE: F/P - Red; E -Red MEDICATION WASTE Product Size: 25 gm Product Wasted: ___ gm heparin No Notes: Memoria 07-15 porcine l 18:23: heparin [place] 00 heparin No Notes: Memoria 07-15 porcine l 18:23: heparin [place] 00 heparin No Notes: Memoria 07-15 porcine l 18:23: heparin [place] 00 Isolyte S No Notes: Memori a PH 7.4 07-15 (Same as: l 1,000 mL 15:48: Isolyte S Herm brie 00 PH 7.4) albumin No Notes: Maddison human 5% 07-15 LOT#: l intravenous 15:48: [place] solution 00 ___Mfg:___ ___ (Same as: Albuminar) "blood product derivative " WASTE: F/P - Red; E -Red MEDICATION WASTE Product Size: 25 gm Product Wasted: ___ gm Isolyte S No Notes: Memori a PH 7.4 07-15 (Same as: l 1,000 mL 15:48: Isolyte S Herm brie 00 PH 7.4) albumin No Notes: Memoria human 5% 07-15 LOT#: l intravenous 15:48: [place] solution 00 ___Mfg:___ ___ (Same as: Albuminar) "blood product derivative " WASTE: F/P - Red; E -Red MEDICATION WASTE Product Size: 25 gm Product Wasted: ___ gm Isolyte S No Notes: Memori a PH 7.4 07-15 (Same as: l 1,000 mL 15:48: Isolyte S Herm brie 00 PH 7.4) albumin No Notes: Memoria human 5% 07-15 LOT#: l intravenous 15:48: [place] solution 00 ___Mfg:___ ___ (Same as: Albuminar) "blood product derivative " WASTE: F/P - Red; E -Red MEDICATION WASTE Product Size: 25 gm Product Wasted: ___ gm Losartan No Notes: Memoria 07-15 (Same as: l 14:00: Cozaar) gabapentin No Notes: Memor ia 300 MG Oral 07-15 (Same as: l Capsule 14:00: Neurontin) Colchicine No 0.6 mg, 1 Me moria 0.6 MG Oral 07-15 tab, l Tablet 14:00: Route: PO, Carley nn Drug form: TAB, Daily, Dosing Weight 141.364, kg, Start date: 07/15/18 9:00:00 CDT, Duration: 30 day, Stop date: 08/13/18 9:00:00 CDT Furosemide No Notes: Memor ia 20 MG Oral 07-15 (Same as: l Tablet 14:00: Lasix) March cause GI upset. Give with food or milk. Allopurinol No Notes: Tim bernard 07-15 (Same as: l 14:00: Zyloprim) Jong Losartan No Notes: Memoria 07-15 (Same as: l 14:00: Cozaar) gabapentin No Notes: Memor ia 300 MG Oral 07-15 (Same as: l Capsule 14:00: Neurontin) Colchicine No 0.6 mg, 1 Me moria 0.6 MG Oral 07-15 tab, l Tablet 14:00: Route: PO, Carley nn Drug form: TAB, Daily, Dosing Weight 141.364, kg, Start date: 07/15/18 9:00:00 CDT, Duration: 30 day, Stop date: 08/13/18 9:00:00 CDT Furosemide No Notes: Memor ia 20 MG Oral 07-15 (Same as: l Tablet 14:00: Lasix) March cause GI upset. Give with food or milk. Allopurinol No Notes: Tim bernard 07-15 (Same as: l 14:00: Zyloprim) Allopurinol No Notes: Tim bernard 07-15 (Same as: l 14:00: Zyloprim) Losartan No Notes: Memoria 07-15 (Same as: l 14:00: Cozaar) gabapentin No Notes: Memor ia 300 MG Oral 07-15 (Same as: l Capsule 14:00: Neurontin) Colchicine No 0.6 mg, 1 Me moria 0.6 MG Oral 07-15 tab, l Tablet 14:00: Route: PO, Carley nn Drug form: TAB, Daily, Dosing Weight 141.364, kg, Start date: 07/15/18 9:00:00 CDT, Duration: 30 day, Stop date: 08/13/18 9:00:00 CDT Furosemide No Notes: Memor ia 20 MG Oral 07-15 (Same as: l Tablet 14:00: Lasix) March cause GI upset. Give with food or milk. Flomax No Notes: Memoria 07-15 (Same As: l 13:30: Flomax) "Do Not Crush" Flomax No Notes: Memoria 07-15 (Same As: l 13:30: Flomax) Jong "Do Not Crush" Flomax 2018-0 No Notes: Memoria 07-15 (Same As: l 13:30: Flomax) Jong "Do Not Crush" Insulin 2017-0 No 60 units) Tim bernard regular 07-15 WASTE: F/P l 13:02: - Black; E Jong 00 - [facility] Trash Bin Stable for 28 days at room temperatur e Expires in days from ____Date Insulin 2018-0 No 60 units) Tim bernard regular 07-15 WASTE: F/P l 13:02: - Black; E Jong 00 - Municipal Trash Bin Stable for 28 days at room temperatur e Expires in days from ____Date Insulin 2018-0 No 60 units) Tim bernard regular 07-15 WASTE: F/P l 13:02: - Black; E Jong 00 - Municipal Trash Bin Stable for 28 days at room temperatur e Expires in days from ____Date Insulin 2018-0 No 60 units) Tim bernard regular 07-15 WASTE: F/P l 04:20: - Black; E Jong 00 - Municipal Trash Bin Stable for 28 days at room temperatur e Expires in days from ____Date Glucagon 0 No 1 mg, Memoria 07-15 Route: IM, l 04:20: Drug form: PDR/INJ, PRN, Dosing Weight 141.038, kg, PRN Blood Glucose Results, Start date: 07/14/18 23:20:00 CDT, Duration: 30 day, Stop date: 08/13/18 23:19:00 CDT Dextrose 0 No 12.5 gm, Memor ia 50% Syringe 07-15 25 mL, l 04:20: Route: IVP, Drug Form: INJ, Dosing Weight 141.038, kg, PRN, PRN Blood Glucose Results, Start date: 07/14/18 23:20:00 CDT, Duration: 30 day, Stop date: 08/13/18 23:19:00 CDT Insulin 2018-0 No 60 units) Tim bernard regular 07-15 WASTE: F/P l 04:20: - Black; E - [facility] Trash Bin Stable for 28 days at room temperatur e Expires in days from ____Date Glucagon 2018-0 No 1 mg, Memoria 07-15 Route: IM, l 04:20: Drug form: [place] 00 PDR/INJ, PRN, Dosing Weight 141.038, kg, [...] WASTE: F/P l 04:20: - Black; E - [facility] Trash Bin Stable for 28 days at [...] CDT Streptococc No Notes: Tim bernard us 9- Shake well l pneumoniae 04:16: prior to Her nieves serotype 1 57 use (Same capsular as: antigen Prevnar diphtheria 13) [id number] protein conjugate vaccine / Streptococc us pneumoniae serotype 14 capsular antigen diphtheria [id number] protein conjugate vaccine / Streptococc us pneumoniae serotype 18C capsular antigen d Streptococc No Notes: Tim bernard us - Shake well l pneumoniae 04:16: prior to Her nieves serotype 1 57 use (Same capsular as: antigen Prevnar diphtheria 13) [id number] protein conjugate vaccine / Streptococc us pneumoniae serotype 14 capsular antigen diphtheria [id number] protein conjugate vaccine / Streptococc us pneumoniae serotype 18C capsular antigen d Streptococc No Notes: Tim bernard us - Shake well l pneumoniae 04:16: prior to Her nieves serotype 1 57 use (Same capsular as: antigen Prevnar diphtheria 13) [id number] protein conjugate vaccine / Streptococc us pneumoniae serotype 14 capsular antigen diphtheria [id number] protein conjugate vaccine / Streptococc us pneumoniae serotype 18C capsular antigen d atorvastati No Notes: Tim bernard n 07-15 (Same As: l 02:00: Lipitor) Saline No Notes: Memoria Flush 0.9% 07-15 preservati l 02:00: ve free. celecoxib No Notes: Memori a 07-15 NSAID. l 02:00: Please [place] 00 check indication . Not for seizure. (Same As: CeleBREX) metoprolol No Notes: Memor ia tartrate 07-15 (Same as: l 02:00: Lopressor) atorvastati No Notes: Tim bernard n 07-15 (Same As: l 02:00: Lipitor) Saline No Notes: Memoria Flush 0.9% 07-15 preservati l 02:00: ve free. celecoxib No Notes: Memori a 07-15 NSAID. l 02:00: Please [place] 00 check indication . Not for seizure. [...] en 07-14 acetaminop l 23:00: hen 4000 [place] 00 mg/day (4 gm/day). (Same as: Tylenol [...] = 1 M emoria 0.6 MG Oral 08 tab, PO, l Tablet 22:46: Daily, # [place] 00 30 tab, 0 Refill(s) Glipizide Yes 10 mg = 1 Mem oria 10 MG Oral 08 tab, PO, l Tablet 22:46: Before [place] 00 Breakfast, # 90 tab, 0 Refill(s) metoprolol Yes 100 mg = 1 M emoria tartrate -08 tab, PO, l 100 mg oral 22:46: BID, # 180 Jong tablet 00 tab, 0 Refill(s) Metformin Yes 1,000 mg, Mem oria 908 PO, 0 l 22:46: Refill(s) [place] 00 losartan 50 Yes 50 mg = 1 M emoria mg oral 9-08 tab, PO, l tablet 22:46: Daily, # [place] 00 90 tab, 0 Refill(s) Furosemide Yes 20 mg = 1 Me moria 20 MG Oral 9-08 tab, PO, l Tablet 22:46: Daily, # Jong 00 90 tab, 0 Refill(s) clopidogrel No 75 mg = 1 M emoria 75 mg oral 9-08 tab, PO, l tablet 22:46: Daily, # [place] 00 90 tab, 1 Refill(s) atorvastati Yes 20 mg = 1 M emoria n 20 mg 9-08 tab, PO, l oral tablet 22:46: Bedtime, # [place] 00 30 tab, 0 Refill(s) allopurinol Yes 300 mg = 1 Memoria 300 mg oral -08 tab, PO, l tablet 22:46: Daily, # Jong 00 30 tab, 0 Refill(s) gabapentin No 300 mg = 1 M emoria 300 MG Oral 08 cap, PO, l Capsule 22:46: TID, # 90 Carley nn 00 cap, 0 Refill(s) Colchicine Yes 0.6 mg = 1 M emoria 0.6 MG Oral 08 tab, PO, l Tablet 22:46: Daily, # [place] 00 30 tab, 0 Refill(s) Glipizide Yes 10 mg = 1 Mem oria 10 MG Oral 08 tab, PO, l Tablet 22:46: Before [place] 00 Breakfast, # 90 tab, 0 Refill(s) metoprolol Yes 100 mg = 1 M emoria tartrate -08 tab, PO, l 100 mg oral 22:46: BID, # 180 [place] tablet 00 tab, 0 Refill(s) Metformin 0 Yes 1,000 mg, Mem oria 908 PO, 0 l 22:46: Refill(s) Jong 00 losartan 50 0 Yes 50 mg = 1 M emoria mg oral 08 tab, PO, l tablet 22:46: Daily, # [place] 00 90 tab, 0 Refill(s) Furosemide Yes 20 mg = 1 Me moria 20 MG Oral 9-08 tab, PO, l Tablet 22:46: Daily, # Jong 00 90 tab, 0 Refill(s) clopidogrel No 75 mg = 1 M emoria 75 mg oral 9-08 tab, PO, l tablet 22:46: Daily, # [place] 00 90 tab, 1 Refill(s) atorvastati Yes 20 mg = 1 M emoria n 20 mg 9-08 tab, PO, l oral tablet 22:46: Bedtime, # [place] 00 30 tab, 0 Refill(s) allopurinol Yes 300 mg = 1 Memoria 300 mg oral 9-08 tab, PO, l tablet 22:46: Daily, # Jong 00 30 tab, 0 Refill(s) gabapentin No 300 mg = 1 M emoria 300 MG Oral 908 cap, PO, l Capsule 22:46: TID, # 90 Carley nn 00 cap, 0 Refill(s) Colchicine Yes 0.6 mg = 1 M emoria 0.6 MG Oral 9-08 tab, PO, l Tablet 22:46: Daily, # Jong 00 30 tab, 0 Refill(s) Glipizide Yes 10 mg = 1 Mem oria 10 MG Oral 08 tab, PO, l Tablet 22:46: Before [place] 00 Breakfast, # 90 tab, 0 Refill(s) metoprolol Yes 100 mg = 1 M emoria tartrate -08 tab, PO, l 100 mg oral 22:46: BID, # 180 [place] tablet 00 tab, 0 Refill(s) Metformin Yes 1,000 mg, Mem oria 9-08 PO, 0 l 22:46: Refill(s) Jong 00 losartan 50 Yes 50 mg = 1 M emoria mg oral 9-08 tab, PO, l tablet 22:46: Daily, # [place] 00 90 tab, 0 Refill(s) Furosemide Yes 20 mg = 1 Me moria 20 MG Oral 9-08 tab, PO, l Tablet 22:46: Daily, # [place] 00 90 tab, 0 Refill(s) clopidogrel No 75 mg = 1 M emoria 75 mg oral 9-08 tab, PO, l tablet 22:46: Daily, # [place] 00 90 tab, 1 Refill(s) atorvastati Yes 20 mg = 1 M emoria n 20 mg 9-08 tab, PO, l oral tablet 22:46: Bedtime, # Jong 00 30 tab, 0 Refill(s) allopurinol Yes 300 mg = 1 Memoria 300 mg oral 9-08 tab, PO, l tablet 22:46: Daily, # [place] 00 30 tab, 0 Refill(s) gabapentin No 300 mg = 1 M emoria 300 MG Oral 908 cap, PO, l Capsule 22:46: TID, # 90 Carley nn 00 cap, 0 Refill(s) Isolyte S No Notes: Memori a PH 7.4 9-08 (Same as: l 1,000 mL 22:44: Isolyte S Herm brie 00 PH 7.4) Isolyte S No Notes: Memori a PH 7.4 9-08 (Same as: l 1,000 mL 22:44: Isolyte S Herm brie 00 PH 7.4) Isolyte S No Notes: Memori a PH 7.4 9-08 (Same as: l 1,000 mL 22:44: Isolyte S Herm brie 00 PH 7.4) Tramadol No Notes: Not Mem oria 9-08 to exceed l 22:36: 400mg/day. [place] (Same As: Ultram) Oxycodone No Notes: Memori a Hydrochlori 9-08 (Same as: l de 5 MG 22:36: Roxicodone Herm brie Oral Tablet 00 ) pregabalin No Notes: Memor ia 9-08 Same as l 22:36: Lyrica [place] 00 Tramadol No Notes: Not Mem oria 9-08 to exceed l 22:36: 400mg/day. Jong (Same As: Ultram) Oxycodone No Notes: Memori a Hydrochlori -08 (Same as: l de 5 MG 22:36: Roxicodone Herm brie Oral Tablet 00 ) pregabalin No Notes: Memor ia 9-08 Same as l 22:36: Lyrica Jong 00 Tramadol No Notes: Not Mem oria 9-08 to exceed l 22:36: 400mg/day. [place] 00 (Same As: Ultram) Oxycodone No Notes: Memori a Hydrochlori 9-08 (Same as: l de 5 MG 22:36: Roxicodone Herm brie Oral Tablet 00 ) pregabalin No Notes: Memor ia 9-08 Same as l 22:36: Lyrica Ames 00 Saline No Notes: Memoria Flush 0.9% 07-14 preservati l 22:19: ve free. Ames Acetaminoph No Notes: Do M emoria en 9- not exceed l 22:19: 4 gm/day. Ames (Same as: Tylenol) Ibuprofen No Notes: Memori a 9-08 (Same as: l 22:19: Motrin) Ames 00 "Do Not Crush" Take with food. Docusate No Notes: Memoria 9-08 (Same as: l 22:19: Colace) Ames 00 (Do Not Crush) Ondansetron No Notes: Tim bernard 9-08 (Same as: l 22:19: Zofran) Ames 00 MEDICATION WASTE Product Size: 4 mg Product Wasted: ___ mg Saline No Notes: Memoria Flush 0.9% 9-08 preservati l 22:19: ve free. Jong Acetaminoph No Notes: Do M emoria en 07-14 not exceed l 22:19: 4 gm/day. Jong 00 (Same as: Tylenol) Ibuprofen No Notes: Memori a 9- (Same as: l 22:19: Motrin) Ames 00 "Do Not Crush" Take with food. Docusate No Notes: Memoria 9-08 (Same as: l 22:19: Colace) Ames 00 (Do Not Crush) Ondansetron No Notes: Tim bernard 9-08 (Same as: l 22:19: Zofran) Ames 00 MEDICATION WASTE Product Size: 4 mg Product Wasted: ___ mg Saline No Notes: Memoria Flush 0.9% 9-08 preservati l 22:19: ve free. Jong Acetaminoph No Notes: Do M emoria en 9 not exceed l 22:19: 4 gm/day. Jong (Same as: Tylenol) Ibuprofen No Notes: Memori a 9-08 (Same as: l 22:19: Motrin) Jong 00 "Do Not Crush" Take with food. Docusate No Notes: Memoria 9-08 (Same as: l 22:19: Colace) Jong 00 (Do Not Crush) Ondansetron 2018-0 No Notes: Tim bernard 07-14 (Same as: l 22:19: Zofrsunitha) MEDICATION WASTE Product Size: 4 mg Product Wasted: ___ mg iodixanol 2018-0 No 150 mL, Memor ia 07-14 Route: l 20:23: IVP, Drug Jong Form: SOLN, Dosing Weight 141.364, kg, ONCALL, STAT, Start date: 07/14/18 15:23:00 CDT, Duration: 1 doses or times, Dose = 2.2ml/kg, Max dose = 150ml -- "To be infused by Radiology Staff ONLY" iodixanol 2018-0 No 150 mL, Memor ia 07-14 Route: l 20:23: IVP, Drug Form: SOLN, Dosing Weight 141.364, kg, ONCALL, STAT, Start date: 07/14/18 15:23:00 CDT, Duration: 1 doses or times, Dose = 2.2ml/kg, Max dose = 150ml -- "To be infused by Radiology Staff ONLY" iodixanol 2018-0 No 150 mL, Memor ia 07-14 Route: l 20:23: IVP, Drug Form: SOLN, Dosing Weight 141.364, kg, ONCALL, STAT, Start date: 07/14/18 15:23:00 CDT, Duration: 1 doses or times, Dose = 2.2ml/kg, Max dose = 150ml -- "To be infused by Radiology Staff ONLY" Ondansetron 2018-0 No 4 mg, Memor ia 07-14 Route: l 19:53: IVP, ONCE, Dosing Weight 141.364, kg, Priority: STAT, Start date: 07/14/18 14:53:00 CDT, Stop date: 07/14/18 14:53:00 CDT Saline 2017-0 No Notes: Memoria Flush 0.9% 07-14 (Same as: l 19:53: BD Posiflush) Ondansetron 2018-0 No 4 mg, Memor ia 07-14 Route: l 19:53: IVP, ONCE, [place] Dosing Weight 141.364, kg, Priority: STAT, Start date: 07/14/18 14:53:00 CDT, Stop date: 07/14/18 14:53:00 CDT Saline No Notes: [facility] Flush 0.9% 07-14 (Same as: l 19:53: BD Jong 00 Posiflush) Ondansetron No 4 mg, Memor ia 07-14 Route: l 19:53: IVP, ONCE, [place] 00 Dosing Weight 141.364, kg, Priority: STAT, Start date: 07/14/18 14:53:00 CDT, Stop date: 07/14/18 14:53:00 CDT Saline No Notes: Memoria Flush 0.9% 07-14 (Same as: l 19:53: BD Jong 00 Posiflush) Immunizations Ordered Filled Immunization Date Status Comments [facility] e Immunization Name Name Twinrix (hep a/hep 2021-07-02 Completed Univer sity of b) 00:00:00 [facility] Twinrix (hep a/hep 2021-03-10 Completed Univer sity of b) 00:00:00 [facility] Twinrix (hep a/hep 2021-01-12 Completed Univer sity of b) 00:00:00 [facility] SARS-COV-2 COVID-19 2020-12-19 Completed Unive rsity of PFIZER VACCINE 00:00:00 [facility] SARS-COV-2 COVID-19 2020-11-28 Completed Unive rsity of PFIZER VACCINE 00:00:00 [facility] Zoster Vaccine 2020-10-09 Completed University of Recombinant 00:00:00 [facility] Influenza Virus 2020-09-03 Completed Universit y of Vaccine 00:00:00 [facility] Influenza High Dose 2020-07-29 Completed Unive rsity of 00:00:00 [facility] Zoster Vaccine 2020-07-29 Completed University of Recombinant 00:00:00 [facility] Pneumococcal 2020-05-04 Completed University o f Polysaccharide, 00:00:00 [facility] ical PPSV23 (PNEUMOVAX) [place] Influenza Virus 2019-12-31 Completed Universit y of Vaccine 00:00:00 [facility] Pneumococcal 2019-07-03 Completed University o f Polysaccharide, 00:00:00 [facility] ical PPSV23 (PNEUMOVAX) Branch TDAP 2019-07-03 Completed [facility] 00:00:00 [facility] Pneumococcal 13 2018-06-15 Completed [facility], PCV13 00:00:00 [facility] dical (Prevnar 13) Branch Vital Signs Vital Name Observation Time Observation Value Comments Source Weight 2021-05-26 21:00:00 128.36 KG Height 2021-05-26 21:00:00 183 CM Weight 2021-05-26 14:31:00 7.93 KG Temperature Oral (F) 2018-07-22 01:09:00 98.1 F [facility] Heart Rate 2018-07-22 01:09:00 [facility] [place] Systolic (mm Hg) 2018-07-22 01:09:00 Tim rial [place] Diastolic (mm Hg) 2018-07-22 01:09:00 Mem orial Jong Respitory Rate 2018-07-22 01:09:00 Memori al [place] Systolic (mm Hg) 2018-07-21 23:10:00 Tim rial [place] Diastolic (mm Hg) 2018-07-21 23:10:00 Mem orial [place] Respitory Rate 2018-07-21 23:10:00 Memori al Jong Temperature Oral (F) 2018-07-21 21:40:00 98.4 F [facility] [place] Systolic (mm Hg) 2018-07-21 21:40:00 Tim rial Jong Diastolic (mm Hg) 2018-07-21 21:40:00 Mem orial [place] Respitory Rate 2018-07-21 21:40:00 Memori al Jong Temperature Oral (F) 2018-07-21 18:57:00 98.6 F [facility] Heart Rate 2018-07-21 18:57:00 [facility] [place] Weight 2018-07-21 18:57:00 [facility] BMI Calculated 2018-07-21 18:57:00 [facility] [place] Height 2018-07-21 18:57:00 177.8 cm [facility] Systolic (mm Hg) 2018-07-19 17:00:00 Tim rial [place] Diastolic (mm Hg) 2018-07-19 17:00:00 Mem orial Jong Respitory Rate 2018-07-19 17:00:00 Memori al [place] Systolic (mm Hg) 2018-07-19 16:00:00 Tim rial [place] Diastolic (mm Hg) 2018-07-19 16:00:00 Mem orial Jong Respitory Rate 2018-07-19 16:00:00 Memori al [place] Respitory Rate 2018-07-19 15:00:00 [facility] al Jong Systolic (mm Hg) 2018-07-19 15:00:00 Tim rial Jong Diastolic (mm Hg) 2018-07-19 15:00:00 Mem orial Jong Temperature Oral (F) 2018-07-16 10:00:00 97.0 F [facility] Temperature Oral (F) 2018-07-16 08:00:00 96.9 F [facility] Temperature Oral (F) 2018-07-16 06:00:00 96.8 F [facility] BMI Calculated 2018-07-15 04:12:00 [facility] al [place] Weight 2018-07-15 04:12:00 [facility] Height 2018-07-15 04:12:00 172.72 cm [facility] Heart Rate 2018-07-14 19:33:00 [facility] [place] Height 2018-07-14 19:33:00 177.8 cm [facility] [place] Weight 2018-07-14 19:33:00 [facility] [place] BMI Calculated 2018-07-14 19:33:00 Memori al Jong Procedures Procedure Date / Time Performed Performing Clinician Alexis simpson [id number] 2021-05-08 00:00:00 [facility] [id number] 2021-05-08 00:00:00 NISJO [facility] [id number] 2021-05-08 00:00:00 NISJO [facility] [id number] 2021-05-04 00:00:00 UGBST [facility] [id number] 2021-03-24 00:00:00 THADH [facility] Pl[facility] Center Encounters Start End Encounter Admission Attending Care Care Encounter Source Date/Time Date/Time Type Type Clinicians Facility Department ID 2021-12-02 Outpatient 3 [id number] [place] [id number] [facility] 12:53:07 [facility] [place] [facility] 2021-12-02 Outpatient 3 [id number] [facility] REF [id number] [facility] 12:52:20 0910 [facility] [place] 2021-12-02 Outpatient 3 [id number] E[facility] REF [id number] [facility] 12:52:08 0909 [facility] [place] 2021-12-02 Outpatient 3 [id number] ENC[facility] CRD [id number] [facility] 12:29:03 0710 [facility] [place] 2021-12-02 Outpatient 3 [id number] ENC[facility] CRD [id number] [facility] 12:28:27 0708 [facility] [place] 2021-12-02 Outpatient 3 [id number] E[facility] REF [id number] [facility] 12:24:47 0629 [facility] [place] 2021-12-02 Outpatient 3 [id number] E[facility] REF [id number] [facility] 12:24:33 0628 [facility] [place] 2022-04-12 2022-04-12 Transition MARY ANN [place] 1.2.840.114 [id number] Univers 00:00:00 00:00:00 of Gabriella HAAS [id number] it y of [place] 4.2.7.2.686 [facility] [id number] [facility] 403 Branch 2022-04-07 2022-04-10 Inpatient X CHUNTAURUS [facility] [id number] Univers 12:30:00 14:40:00 MAGAILS conteh [facility] 2022-04-07 2022-04-10 Inpatient X [facility]UN[facility]US [facility] [id number] Univers 12:30:00 14:40:00 MAGALIS conteh [facility] 2022-04-07 2022-04-10 [facility] Bryant Loomis [facility] 1.2.840.1 [id number] Univers 12:30:00 14:40:00 Encounter Magalis Poe 350.1.13.10 [place] [id number] [facility] 080 Branch 2021-08-04 2021-08-[address] [facility] [id number] 09:32:00 09:32:00 -[id number] [facility] 2021-08-03 2021-08-[address] [facility] [id number] 20:00:00 20:00:00 -[id number] [facility] 2021-08-02 2021-08-[address] [facility] [id number] 01:35:00 01:35:00 -[id number] [facility] 2021-07-30 2021-07-[address] [facility] [id number] 09:56:00 09:56:00 -[id number] [facility] 2021-07-26 2021-07-[address] [facility] [id number] 10:50:00 10:50:00 -[id number] [facility] 2021-07-23 2021-07-[address] [facility] [id number] 13:23:00 13:23:00 -[id number] [facility] 2021-07-21 2021-07-[address] [facility] [id number] 10:15:00 10:15:00 -[id number] [facility] 2021-07-19 2021-07-[address] [facility] [id number] 12:37:00 12:37:00 -[id number] [facility] 2021-07-12 2021-07-18 [facility] Malia Cruz [facility] 1.2.840. 114 [id number] Univers 18:29:00 15:15:00 Encounter Wendy Baez 350.1.13.10 Dagmar Jade 4.2.7.2.686 [facility] [id number] [facility] 081 Branch 2021-07-12 2021-07-18 Inpatient X ANA ALREJI JUNIOR [id number] Univers 18:29:00 15:15:00 DAGMAR conteh [facility] 2021-06-13 2021-06-17 Emergency Ndiaye, Fide [facility] 1.2.840 .114 [id number] Univers 11:17:00 16:30:00 Magalis Poe [facility]13.10 [facility] 4.2.7.2.686 [facility] [id number] [place] [address] Branch 2021-06-13 2021-06-13 Emergency X MAURY [facility] ERT [id number] Univers 11:17:00 11:17:00 FIDE ity [facility] 2021-05-26 2021-05-28 Outpatient C GUERO, [facility] TELE [id number] [place] 14:26:00 15:35:00 [facility] 2021-04-28 2021-05-14 Inpatient EM Willis Dotsonh [facility] [id number] [facility] 01:11:00 21:18:[address] [facility] 2021-04-27 2021-04-27 Emergency EM Nan, HCAPM SERENITY [id number] [facility] 14:49:00 21:39:00 Briseida 92 [facility] 2021-04-22 2021-04-25 Inpatient EM Ahmed, HCAPM SURG [id number] [facility] 13:01:00 09:50:00 Mohamed 71 [facility] 2021-04-22 2021-04-22 Outpatient Ahmed, HCACL LABO [id number] [facility] 20:47:00 20:47:00 Mohamed [facility] 2021-03-21 2021-03-30 Inpatient EM Jason, HCAPM MED [id number] [facility] 18:51:00 14:55:00 Oladipo 20 [facility] 2021-03-20 2021-03-20 Outpatient Jason, HCACL LABO [id number] [facility] 23:42:00 23:42:00 Oladipo 60 [facility] 2020-10-28 2020-10-28 Outpatient KNOW, HCABM OPLA [id number] [facility] 20:42:00 20:42:00 DOES_NOT 88 [facility] 2020-05-17 2020-05-17 Telephone Josephine Coleman 1.2.840.114 [id number] Univers 00:00:00 00:00:00 TED 350.1.13.10 it y of [facility] 4.2.7.2.686 Florentino as [id number] [facility] 019 Branch 2020-05-17 2020-05-17 Telephone Josephine Coleman 1.2.840.114 [id number] 00:00:00 00:00:00 TED 350.1.13.10 [facility] 4.2.7.2.686 [id number] 2020-05-11 2020-05-11 Emergency [facility] 1.2.840.114 [id number] Univers 08:59:36 12:09:00 Cori Bhat 350.1.13.10 [place] [id number] [facility] 084 [place] 2020-05-11 2020-05-11 Emergency [facility] 1.2.840.114 [id number] 08:59:36 12:09:00 Cori Bhat 350.1.13.10 [place] 4.2.7.2.686 [place] [id number] 2020-05-11 2020-05-11 Emergency X [facility] ERT [id number] Univers 08:59:36 08:59:36 ity of [facility] 2020-02-15 2020-02-15 Transition Mary Ann Page 1.2.840.114 [id number] Univers 00:00:00 00:00:00 of Care Roxanna Rosario David 350.1.13.10 i ty of [place] [id number] [facility] 403 Branch 2020-02-15 2020-02-15 Transition Mary Ann Page 1.2.840.114 [id number] 00:00:00 00:00:00 of Care Roxanna Rosario David 350.1.13.10 [place] 4.2.7.2.686 [id number] [facility] 2020-02-11 2020-02-14 [facility] Mckay Moore 1.2.840.1 14 [id number] Univers 14:42:07 18:40:00 Encounter [facility]13.10 [facility] 4.2.7.2.686 [place] [id number] [address] 2020-02-11 2020-02-14 Inpatient X BRYAN [facility] ASH [id number] Univers 14:42:07 18:40:00 [facility] 2020-02-11 2020-02-14 [facility] Mckay Moore 1.2.840.1 14 [id number] 14:42:07 18:40:00 Encounter Charan Stern 350.1.13.10 [facility] 4.2.7.2.686 [id number] [facility] 2018-07-21 2018-07-22 Emergency [facility] [id number] Memoria 18:52:00 01:12:[address] 2018-07-21 2018-07-22 Emergency [facility] [id number] Memoria 18:52:00 01:12:[address] 2018-07-21 2018-07-21 Outpatient Aznaurova-A [facility] SE [id number] 13:52:00 20:12:00 Ines roy 2018-07-14 2018-07-19 Inpatient [facility] [id number] Memoria 19:29:00 17:30:[address] 2018-07-14 2018-07-19 Inpatient [facility] [id number] Memoria 19:29:00 17:30:[address] 2018-07-14 2018-07-19 Outpatient Nolan [facility] [id number] 14:29:00 12:30:00 Janie Delaney Results Test Description Test Time Test Comments Results Result Comments Source URINE CULTURE 2021-05-29 08:40:00 Test Item Value Reference Range Interpretation Comme nts Culture Observations (test code = COB1) NO GROWTH (<1,000 CFU/ML) COMPREHENSIVE METABOLIC [id number] 06:58:00 Test Item Value Reference Range Interpretation [...] normal/abnormal . GFR 33 See_Comment L [Automated NEPALESE (test mL/min/1.73m\\S\\2 message] The code = GFRAA) [...] the FDA and the [employer] the [employer] (CAP) are more stringent than those [...] (test code = RBCMOR) NORMAL BASIC METABOLIC [id number] 07:02:00 Test Item Value Reference Range Interpretation [...] normal/abnormal . GFR 34 See_Comment L [Automated NEPALESE (test mL/min/1.73m\\S\\2 message] The code = GFRAA) [...] mg/dL 8.3-9.5 L = 09D) BASIC METABOLIC [id number] 23:18:00 Test Item Value Reference Range Interpretation [...] normal/abnormal . GFR 39 See_Comment L [Automated NEPALESE (test mL/min/1.73m\\S\\2 message] The code = GFRAA) [...] mg/dL 8.3-9.5 L = 09D) HEMOGLOBIN & [id number] 23:06:00 Test Item Value Reference Range Interpretation Comments HGB (test code = HBG) 9.8 g/dL 14.0-18.0 L HCT (test code = HCT) 29.3 % 35.0-46.0 L URINALYSIS WITH [id number] 18:03:00 Test Item Value Reference Range Interpretation Comments COLOR (test code = COLU) RED YELLOW A CLARITY (test code = CLA) TURBID CLEAR A GLUCOSE UR (test code = UA GLUCOSE) NEGATIVE NEGATIVE BILI UR (test code = BILE) 2+ NEGATIVE A KETONES UR (test code = CONSTANTIN) 1+ NEGATIVE A SP GRAVITY (test code [...] code = USPERM) /HPF NONE HEMOGLOBIN & [id number] 17:52:00 Test Item Value Reference Range Interpretation [...] the FDA and the [employer] (CAP) are more stringent than those required for this test. Therefore, the result should be interpreted with caution and close attention to other clinical and epidemiological data OCCULT [id number] 17:29:00 Test Item Value Reference Range Interpretation Comments Direct Exam (test code NEGATIVE FOR OCCULT = DE3) BLOOD PRO TIME AND [id number] 15:54:00 Test Item Value Reference Range Interpretation [...] Heparin. Order Code is ANTI-XA COMPREHENSIVE METABOLIC [id number] 15:50:00 Test Item Value Reference Range Interpretation [...] normal/abnormal . GFR 42 See_Comment L [Automated NEPALESE (test mL/min/1.73m\\S\\2 message] The code = GFRAA) [...] to interpret this result as normal/abnormal . 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.COMPARISON: None.TECHNIQUE: CT of abdomen and pelvis [...] Jacqueline Kevin MD 05/26/2021 3:26 PM CDT [id number],PLAQUE 2021-05-17 13:44:00 Test Item Value Reference Range Interpretation Comments ARTERY,PLAQUE (test code = ART) --------RUN DATE: 05/17/21 [facility] [place] [facility] RUN TIME: 1344 Specimen Inquiry RUN USER: INTERFACE --------PATIENT: MI MCKENNA LOC: [facility] #: [id number] AGE/SX: 70/M ROOM: [facility] RE04/28/21[facility] DR: Judd Dotson MD : 48 BED: A DIS: 05/14/21 STATUS: DIS IN TLOC: -------- SPEC #: [id number]:BALTAZAR:[id number] RECD: 05/09/21 STATUS: KRANTHI JOHNSON #: [id number] AVERY: 05/08/[address] [facility] [address]: Judd Dotson MD ENTERED: 05/09/21-1041 SP TYPE: ARTERY, PL OTHR DR: DOES_NOT KNOW Self Referred Ryne Aragon MD, Humair MD Peracha, Waseem MD Sankaranarayanan,Tonya Flores,Raghavendra Whitney,Vincent ADAMSORDERED: DECAL, SURG PATH LVL 3, SURG PATH LVL 4 CODES: G40442 - PLAQUE, NOS [id number] - ATHEROSCLEROSIS [id number] - ARTERY, NOS [id number] - CERVIX EXCISION, NOS [id number] - LYMPH NODE, NOS COPIES TO: DOES_NOT KNOW [place] [address] [place] [address] [place] [address] [place] [address] [place] [address] [place] [address] [place] [address] [address] [place] [address] Sofia,Tonya n [address] [place] [address] CONTINUED ON NEXT PAGE --------RUN DATE: 05/17/21 [facility] PAGE 2 RUN TIME: 1344 Specimen Inquiry RUN USER: INTERFACE --------SPEC #: [id number]:BALTAZAR:[id number] PATIENT: MI MCKENNA #[id number] (Continued) COPIES TO: (Continued) [place] [address] [place] [address] [place] [address] [address] [facility] backup # [phone] ICD CODES: 440 - PROCEDURES: DECAL (05/09/21) SURG PATH LVL 3 (05/09/21) SURG PATH LVL 4 (05/09/21) TISSUES: A. ARTERY, NOS - RT CAROTID PLAQUE B. LYMPH NODE, NOS - RT CERVICAL LYMPH NODE CPT CODES CPT CODE(S): 72969 , 54980 , 87606 , , , , FINAL DIAGNOSIS A. Right carotid plaque, endarterectomy: CALCIFIED ATHEROSCLEROTIC PLAQUE B. Lymph node, right cervical, excision: ONE BENIGN LYMPH NODE GROSS DESCRIPTION A. Right carotid plaque. Received is a segment of yellow-zavala plaque that measures 2.7 x 1 x 0.8 cm. Sectioning reveals a heavily calcified cut surface. Sales Performance Manager section submitted for decalcification as A1. B. Right cervical lymph node. The specimen consists of a single node measuring 2.5 x 1 x 0.8 cm. It is serially sectioned and submitted entirely as B1 and B2. /tc/pdb CONTINUED ON NEXT PAGE --------RUN DATE: 05/17/21 [facility] RUN TIME: 1344 Specimen Inquiry RUN USER: INTERFACE --------SPEC #: [id number]:BALTAZAR:[id number] PATIENT: MI MCKENNA #[id number] (Continued) MICROSCOPIC DESCRIPTION A. Right carotid plaque. The microscopic description is incorporated into the final diagnosis. B. Right cervical lymph node. The microscopic description is incorporated into the final diagnosis. /pdb Signed SIGNATURE ON FILE EvansOctavia 05/17/21 1344 -------- END OF REPORT CBC W/O [id number] 12:53:00 Test Item Value Reference Range Interpretation [...] = 0.00 K/mm3 0.0-0.1 N NRBC#) WBC [id number] 12:53:00 Test Item Value Reference Range Interpretation [...] code = NORMAL NORMAL PLTMORPH) GLUCOSE BEDSIDE [id number] 11:56:00 Test Item Value Reference Range Interpretation Comments GLUCOSE BEDSIDE TESTING (test code 193 MG/DL 60-99 H = GLUBED) GLUCOSE BEDSIDE [id number] 07:46:00 Test Item Value Reference Range Interpretation Comments GLUCOSE BEDSIDE TESTING (test code 127 MG/DL 60-99 H = GLUBED) BASIC METABOLIC [id number] 07:39:00 Test Item Value Reference Range Interpretation [...] 8.7 MG/DL 8.4-10.2 N CA) CBC W/O [id number] 07:28:00 Test Item Value Reference Range Interpretation [...] = 0.00 K/mm3 0.0-0.1 N NRBC#) WBC [id number] 07:28:00 Test Item Value Reference Range Interpretation Comments RBC MORPHOLOGY REQUIRED (test code = RBCM) TOTAL CELLS COUNTED (test code = TCC) #CELLS SEGMENTED NEUTROPHILS (test code = % 36.2-73.8 SEG) LYMPHOCYTE (test code = LYMPH) % 12.9-45.1 MONOCYTE (test code = MON) % 0-11 PLATELET ESTIMATE (test code = ADEQUATE PLTEST) PLATELET MORPHOLOGY (test code = NORMAL PLTMORPH) CBC W/AUTO [id number] 07:28:00 Test Item Value Reference Range Interpretation [...] = 0.00 K/mm3 0.0-0.1 N NRBC#) WBC [id number] 07:28:00 Test Item Value Reference Range Interpretation Comments RBC MORPHOLOGY REQUIRED (test code = RBCM) TOTAL CELLS COUNTED (test code = TCC) #CELLS SEGMENTED NEUTROPHILS (test code = % 36.2-73.8 SEG) LYMPHOCYTE (test code = LYMPH) % 12.9-45.1 MONOCYTE (test code = MON) % 0-11 PLATELET ESTIMATE (test code = ADEQUATE PLTEST) PLATELET MORPHOLOGY (test code = NORMAL PLTMORPH) GLUCOSE BEDSIDE [id number] 19:24:00 Test Item Value Reference Range Interpretation Comments GLUCOSE BEDSIDE TESTING (test code 147 MG/DL 60-99 H = GLUBED) GLUCOSE BEDSIDE [id number] 15:41:00 Test Item Value Reference Range Interpretation Comments GLUCOSE BEDSIDE TESTING (test code 156 MG/DL 60-99 H = GLUBED) COVID 19 Asymptomatic IH [id number] 13:49:00 Test Item Value Reference Range Interpretation [...] (antigen) in the sample." NT PRO-BRAIN NATRIURETIC [id number] 13:28:00 Test Item Value Reference Range Interpretation Comments NT PRO-BRAIN NATRIURETIC PEPTI 3910.0 pg/mL 0-125 H (test code = PROBNP) GLUCOSE BEDSIDE [id number] 11:15:00 Test Item Value Reference Range Interpretation Comments GLUCOSE BEDSIDE TESTING (test code 195 MG/DL 60-99 H = GLUBED) GLUCOSE BEDSIDE [id number] 07:43:00 Test Item Value Reference Range Interpretation Comments GLUCOSE BEDSIDE TESTING (test code 148 MG/DL 60-99 H = GLUBED) BASIC METABOLIC [id number] 06:59:00 Test Item Value Reference Range Interpretation [...] 8.3 MG/DL 8.4-10.2 L CA) CBC W/AUTO [id number] 06:34:00 Test Item Value Reference Range Interpretation [...] 0.00 K/mm3 0.0-0.1 N NRBC#) GLUCOSE BEDSIDE [id number] 19:29:00 Test Item Value Reference Range Interpretation Comments GLUCOSE BEDSIDE TESTING (test code 180 MG/DL 60-99 H = GLUBED) GLUCOSE BEDSIDE [id number] 16:35:00 Test Item Value Reference Range Interpretation Comments GLUCOSE BEDSIDE TESTING (test code 150 MG/DL 60-99 H = GLUBED) GLUCOSE BEDSIDE [id number] 11:44:00 Test Item Value Reference Range Interpretation Comments GLUCOSE BEDSIDE TESTING (test code 149 MG/DL 60-99 H = GLUBED) CBC W/O [id number] 10:24:00 Test Item Value Reference Range Interpretation [...] = 0.00 K/mm3 0.0-0.1 N NRBC#) WBC [id number] 10:24:00 Test Item Value Reference Range Interpretation [...] code = NORMAL NORMAL PLTMORPH) BASIC METABOLIC [id number] 07:39:00 Test Item Value Reference Range Interpretation [...] 8.0 MG/DL 8.4-10.2 L CA) CBC W/O [id number] 07:26:00 Test Item Value Reference Range Interpretation [...] = 0.00 K/mm3 0.0-0.1 N NRBC#) WBC [id number] 07:26:00 Test Item Value Reference Range Interpretation Comments RBC MORPHOLOGY REQUIRED (test code = RBCM) TOTAL CELLS COUNTED (test code = TCC) #CELLS SEGMENTED NEUTROPHILS (test code = % 36.2-73.8 SEG) LYMPHOCYTE (test code = LYMPH) % 12.9-45.1 MONOCYTE (test code = MON) % 0-11 PLATELET ESTIMATE (test code = ADEQUATE PLTEST) PLATELET MORPHOLOGY (test code = NORMAL PLTMORPH) CBC W/AUTO [id number] 07:26:00 Test Item Value Reference Range Interpretation [...] = 0.00 K/mm3 0.0-0.1 N NRBC#) WBC [id number] 07:26:00 Test Item Value Reference Range Interpretation Comments RBC MORPHOLOGY REQUIRED (test code = RBCM) TOTAL CELLS COUNTED (test code = TCC) #CELLS SEGMENTED NEUTROPHILS (test code = % 36.2-73.8 SEG) LYMPHOCYTE (test code = LYMPH) % 12.9-45.1 MONOCYTE (test code = MON) % 0-11 PLATELET ESTIMATE (test code = ADEQUATE PLTEST) PLATELET MORPHOLOGY (test code = NORMAL PLTMORPH) GLUCOSE BEDSIDE [id number] 07:17:00 Test Item Value Reference Range Interpretation Comments GLUCOSE BEDSIDE TESTING (test code 114 MG/DL 60-99 H = GLUBED) GLUCOSE BEDSIDE [id number] 19:36:00 Test Item Value Reference Range Interpretation Comments GLUCOSE BEDSIDE TESTING (test code 217 MG/DL 60-99 H = GLUBED) GLUCOSE BEDSIDE [id number] 17:34:00 Test Item Value Reference Range Interpretation Comments GLUCOSE BEDSIDE TESTING (test code 173 MG/DL 60-99 H = GLUBED) GLUCOSE BEDSIDE [id number] 11:21:00 Test Item Value Reference Range Interpretation Comments GLUCOSE BEDSIDE TESTING (test code 163 MG/DL 60-99 H = GLUBED) GLUCOSE BEDSIDE [id number] 08:07:00 Test Item Value Reference Range Interpretation Comments GLUCOSE BEDSIDE TESTING (test code 113 MG/DL 60-99 H = GLUBED) BASIC METABOLIC [id number] 05:23:00 Test Item Value Reference Range Interpretation [...] 7.7 MG/DL 8.4-10.2 L CA) CBC W/AUTO [id number] 05:12:00 Test Item Value Reference Range Interpretation [...] 0.00 K/mm3 0.0-0.1 N NRBC#) GLUCOSE BEDSIDE [id number] 20:30:00 Test Item Value Reference Range Interpretation Comments GLUCOSE BEDSIDE TESTING (test code 176 MG/DL 60-99 H = GLUBED) GLUCOSE BEDSIDE [id number] 17:18:00 Test Item Value Reference Range Interpretation Comments GLUCOSE BEDSIDE TESTING (test code 144 MG/DL 60-99 H = GLUBED) GLUCOSE BEDSIDE [id number] 11:49:00 Test Item Value Reference Range Interpretation Comments GLUCOSE BEDSIDE TESTING (test code 182 MG/DL 60-99 H = GLUBED) GLUCOSE BEDSIDE [id number] 08:13:00 Test Item Value Reference Range Interpretation Comments GLUCOSE BEDSIDE TESTING (test code 147 MG/DL 60-99 H = GLUBED) BASIC METABOLIC [id number] 05:33:00 Test Item Value Reference Range Interpretation [...] code = 7.6 MG/DL 8.4-10.2 L CA) [id number] 05:33:00 Test Item Value Reference Range Interpretation Comments PHOSPHOROUS (test code = PHOS) 4.6 MG/DL 2.5-4.5 H [id number] 05:33:00 Test Item Value Reference Range Interpretation Comments MAGNESIUM (test code = MAG) 2.0 MG/DL 1.6-2.3 N CBC W/AUTO [id number] 05:18:00 Test Item Value Reference Range Interpretation [...] 0.00 K/mm3 0.0-0.1 N NRBC#) GLUCOSE BEDSIDE [id number] 20:31:00 Test Item Value Reference Range Interpretation Comments GLUCOSE BEDSIDE TESTING (test code 240 MG/DL 60-99 H = GLUBED) GLUCOSE BEDSIDE [id number] 17:00:00 Test Item Value Reference Range Interpretation Comments GLUCOSE BEDSIDE TESTING (test code 227 MG/DL 60-99 H = GLUBED) GASTRIC,[id number] 13:37:00 Test Item Value Reference Range Interpretation Comments GASTRIC,BIOPSY (test code = GASTB) RUN DATE: 05/09/21 [facility] - LAB PAGE 1 RUN TIME: 1338 Specimen Inquiry RUN USER: INTERFACE PATIENT: MI MCKENNA LOC: ZACKARY U #: [id number] AGE/SX: 70/M ROOM: [facility] RE04/28/21REG DR: Judd Dotson MD : 48 BED: A DIS: STATUS: ADM IN TLOC: SPEC #: [id number]:[id number] RECD: 05/04/21 STATUS: KRANTHI JOHNSON #: [id number] AVERY: 05/04/[address]: Judd Dotson MD ENTERED: 05/04/21 SP TYPE: GASTRIC BX OTHR DR: DOES_NOT KNOW Self Referred Ryne Aragon MD, Humair MD Sankaranarayanan, Venkatara jan Ugbarugba, Steven C MDORDERED: SURG PATH LVL 4 CODES: H62011 Q98055 - STOMACH, NOS BIOPSY, NOS [id number] - GASTRIC ANTRUM COPIES TO: DOES_NOT KNOW [place] [address] [place] [address] [place] [address] [place] [address] [place] [address] [place] [address] Liam Black teresita [address] [place] [address] [place] [address] [place] [address] PROCEDURES: SURG PATH LVL 4 (05/04/21) CONTINUED ON NEXT PAGE RUN DATE: 05/09/21 [facility] - LAB PAGE 2 RUN TIME: 1338 Specimen Inquiry RUN USER: INTERFACE SPEC #: [id number]:[id number] PATIENT: MI MCKENNA #[id number] (Continued) TISSUES: A. GASTRIC ANTRUM - GASTRIC BX CPT CODES CPT CODE(S): 53702 , , , , , , FINAL [...] 05/09/21 1337 END OF REPORT GLUCOSE BEDSIDE [id number] 11:50:00 Test Item Value Reference Range Interpretation Comments GLUCOSE BEDSIDE TESTING (test code 200 MG/DL 60-99 H = GLUBED) GLUCOSE BEDSIDE [id number] 08:03:00 Test Item Value Reference Range Interpretation Comments GLUCOSE BEDSIDE TESTING (test code 216 MG/DL 60-99 H = GLUBED) - XR CHEST [id number] 06:07:00 [facility] 1950 Sex: M Patient Name: MI MCKENNA Unit No: [id number] EXAMS: CPT CODE: [id number] XR CHEST 1V 97404 Dictation location: H37. CHEST, FRONTAL VIEW HISTORY: [...] at 0607 Reported and signed by: Manjit Ramirez MD CC: Aleksandra HAND Technologist: Sebastian Molina, RT(R) Transcrpt Date/Tm/Trnsp: 05/09/2021 (0607) [email or web address] Orig Print D/T: S: 05/09/2021 (0610) [facility] NAME: MI MCKENNA [id number] PHYS: [place] [address] : 1950 AGE: 70 SEX: M LOC: AD Guan PHONE #: [phone] EXAM DATE: 05/09/2021 STATUS: ADM IN FAX #: [phone] RADIOLOGY NO: PAGE 1 Signed ReportBASIC METABOLIC [id number] 04:16:00 Test Item Value Reference Range Interpretation [...] code = 8.0 MG/DL 8.4-10.2 L CA) [id number] 04:16:00 Test Item Value Reference Range Interpretation Comments MAGNESIUM (test code = MAG) 2.1 MG/DL 1.6-2.3 N CBC W/AUTO [id number] 03:48:00 Test Item Value Reference Range Interpretation [...] 0.00 K/mm3 0.0-0.1 N NRBC#) GLUCOSE BEDSIDE [id number] 20:45:00 Test Item Value Reference Range Interpretation Comments GLUCOSE BEDSIDE TESTING (test code 287 MG/DL 60-99 H = GLUBED) GLUCOSE BEDSIDE [id number] 16:13:00 Test Item Value Reference Range Interpretation Comments GLUCOSE BEDSIDE TESTING (test code 207 MG/DL 60-99 H = GLUBED) BASIC METABOLIC [id number] 14:10:00 Test Item Value Reference Range Interpretation [...] code = 8.2 MG/DL 8.4-10.2 L CA) [id number] 14:10:00 Test Item Value Reference Range Interpretation Comments MAGNESIUM (test code = MAG) 1.9 MG/DL 1.6-2.3 N CBC W/AUTO [id number] 13:51:00 Test Item Value Reference Range Interpretation [...] K/mm3 0.0-0.1 N NRBC#) - XR CHEST [id number] 13:28:00 [facility] : 1950 Sex: M Patient Name: MI MCKENNA Unit No: [id number] EXAMS: CPT CODE: [id number] XR CHEST 1V 30294 B2 EXAM: - XRCHEST 1V HISTORY: post op surgery COMPARISON: 05/07/2021 [...] and signed by: Pranay Doe MD CC: lAeksandra HAND Technologist: Diana Delgadillo Transcrpt Date/Tm/Trnsp: 05/08/2021 (1328) t.[email or web address] Orig Print D/T: S: 05/08/2021 (3372) [facility] NAME: MI MCKENNA [id number] PHYS: [place] [address] : 1950 AGE: 70 SEX: M LOC: Z.SI09 A PHONE #: [phone] EXAM DATE: 05/08/2021 STATUS: ADM IN FAX #: [phone] RADIOLOGY NO: PAGE 1 Signed ReportGLUCOSE BEDSIDE [id number] 12:31:00 Test Item Value Reference Range Interpretation Comments GLUCOSE BEDSIDE TESTING (test code 127 MG/DL 60-99 H = GLUBED) BASIC METABOLIC [id number] 12:21:00 Test Item Value Reference Range Interpretation [...] 8.2 MG/DL 8.4-10.2 L CA) CBC W/AUTO [id number] 12:08:00 Test Item Value Reference Range Interpretation [...] K/mm3 0.0-0.1 N NRBC#) POC ARTERIAL BLOOD [id number] 12:02:00 Test Item Value Reference Range Interpretation Comments POC ARTERIAL BLOOD GAS PH 7.319 7.35-7.45 L (test code = POCPHA) POC ARTERIAL BLOOD GAS PCO2 44.0 mmHg 35.0-45.0 N (test code = NAOHXY4Y) POC ARTERIAL BLOOD GAS PO2 239.3 75.0-100.0 HH (test code = LUFBB7F) POC HCO3 ARTERIAL (test 22.6 MMOL/L 20.0-26.0 N code = CTLUUN8B) POC BASE EXCESS (test code -3.3 MMOL/L -3.0-3.0 L = POCBEA) POC O2 SATURATION (test 99.8 % 92.0-98.5 H code = POCO2S) FIO2 (test code = FIO2A) 100 % 21-100 N PaO2/FiO2 (test code = 239.30 mm/Hg KSH7YBR6) SODIUM (test code = NA/ABG) 141 MMOL/L [...] code 0.74 mmol/L 0.7-2.0 N = LACTP) [id number] 12:01:00 Test Item Value Reference Range Interpretation Comments GLUCOSE (test code = GLU) 123 MG/DL 74-106 H CALL OR 7 W/ [id number] 11:44:00 Test Item Value Reference Range Interpretation Comments HEMOGLOBIN (test code = HGB) 10.6 G/DL 12.4-16.7 L CALL OR 7 W/ [id number] 11:44:00 Test Item Value Reference Range Interpretation Comments HEMATOCRIT (test code = HCT) 32.7 % 35.9-49.5 L CALL OR 7 W/ RESULTSPOC ARTERIAL BLOOD [id number] 11:21:00 Test Item Value Reference Range Interpretation Comments POC ARTERIAL BLOOD GAS PH 7.357 7.35-7.45 N (test code = POCPHA) POC ARTERIAL BLOOD GAS PCO2 40.4 mmHg 35.0-45.0 N (test code = QTUWQT1A) POC ARTERIAL BLOOD GAS PO2 181.9 75.0-100.0 H (test code = UIKNG3E) POC HCO3 ARTERIAL (test 22.6 MMOL/L 20.0-26.0 N code = DVBBYO9L) POC BASE EXCESS (test code -2.7 MMOL/L -3.0-3.0 N = POCBEA) POC O2 SATURATION (test 99.6 % 92.0-98.5 H code = POCO2S) FIO2 (test code = FIO2A) 100 % 21-100 N PaO2/FiO2 (test code = 181.90 mm/Hg LHZ0IRJ6) SODIUM (test code = NA/ABG) 140 MMOL/L [...] mmol/L 0.7-2.0 L = LACTP) GLUCOSE BEDSIDE [id number] 08:10:00 Test Item Value Reference Range Interpretation Comments GLUCOSE BEDSIDE TESTING (test code 109 MG/DL 60-99 H = GLUBED) GLUCOSE BEDSIDE [id number] 06:59:00 Test Item Value Reference Range Interpretation Comments GLUCOSE BEDSIDE TESTING (test code 111 MG/DL 60-99 H = GLUBED) GLUCOSE BEDSIDE [id number] 21:20:00 Test Item Value Reference Range Interpretation Comments GLUCOSE BEDSIDE TESTING (test code 147 MG/DL 60-99 H = GLUBED) GLUCOSE BEDSIDE [id number] 15:36:00 Test Item Value Reference Range Interpretation Comments GLUCOSE BEDSIDE TESTING 228 MG/DL 60-99 H Noti fied Nurse~ (test code = GLUBED) BASIC METABOLIC [id number] 15:07:00 Test Item Value Reference Range Interpretation [...] = 8.6 MG/DL 8.4-10.2 N CA) PROTHROMBIN [id number] 15:05:00 Test Item Value Reference Range Interpretation [...] myocar dial infarction. 2.0 - 3.0 3. Delivery Rep al prosthesis hear t valves, recurre nt systemic emboli sm. 3.0 - 4.5 PTT [id number] 15:05:00 Test Item Value Reference Range Interpretation Comments PTT ACTIVATED (test code = APTT) 37.6 SECONDS 25.1-36.5 H CBC W/AUTO [id number] 14:57:00 Test Item Value Reference Range Interpretation [...] K/mm3 0.0-0.1 N NRBC#) - XR CHEST [id number] 14:56:00 [facility] 1950 Sex: M Patient Name: MI MCKENNA Unit No: [id number] EXAMS: CPT CODE: [id number] XR CHEST 1V 09550 B2 EXAM: - XR CHEST 1V HISTORY: Vascular Bypass Preop COMPARISON: 05/05/2021 FINDINGS: The lungs are clear. No pleural effusion or pneumothorax. The cardiac silhouette is within normal limits. No acute osseous abnormalities. IMPRESSION: No acute cardiopulmonary disease. at 1456 Reported and signed by: Pranay Doe MD CC: Technologist: Ada Preciado RT (R)Transcrpt Date/Tm/Trnsp: 05/07/2021 (1456) Ivis.VB7 Orig Print D/T: S: 05/07/2021 (3571) [facility] [address] PHYS: [place] [address] : [birth year] AGE: 70 SEX: M LOC: Z.636 A PHONE #: [phone] EXAM DATE: 05/07/2021 STATUS: ADM IN FAX #: [phone] RADIOLOGY NO: PAGE 1 Signed ReportGLUCOSE BEDSIDE [id number] 11:08:00 Test Item Value Reference Range Interpretation Comments GLUCOSE BEDSIDE TESTING 157 MG/DL 60-99 H Noti fied Nurse~ (test code = GLUBED) GLUCOSE BEDSIDE [id number] 06:55:00 Test Item Value Reference Range Interpretation Comments GLUCOSE BEDSIDE TESTING 122 MG/DL 60-99 H Noti fied Nurse~ (test code = GLUBED) BASIC METABOLIC [id number] 06:07:00 Test Item Value Reference Range Interpretation [...] 8.4 MG/DL 8.4-10.2 N CA) CBC W/AUTO [id number] 06:05:00 Test Item Value Reference Range Interpretation [...] = 0.00 K/mm3 0.0-0.1 N NRBC#) DIFFERENTIAL [id number] 06:05:00 Test Item Value Reference Range Interpretation Comments RBC MORPHOLOGY REQUIRED (test code = RBCM) PLATELET ESTIMATE (test code = PLTEST) ADEQUATE PLATELET MORPHOLOGY (test code = NORMAL PLTMORPH) CBC W/AUTO [id number] 06:05:00 Test Item Value Reference Range Interpretation [...] = 0.00 K/mm3 0.0-0.1 N NRBC#) DIFFERENTIAL [id number] 06:05:00 Test Item Value Reference Range Interpretation Comments RBC MORPHOLOGY REQUIRED (test code = RBCM) PLATELET ESTIMATE (test code = PLTEST) ADEQUATE PLATELET MORPHOLOGY (test code = NORMAL PLTMORPH) GLUCOSE BEDSIDE [id number] 20:20:00 Test Item Value Reference Range Interpretation Comments GLUCOSE BEDSIDE TESTING (test code 149 MG/DL 60-99 H = GLUBED) GLUCOSE BEDSIDE [id number] 16:01:00 Test Item Value Reference Range Interpretation Comments GLUCOSE BEDSIDE TESTING 152 MG/DL 60-99 H Noti fied Nurse~ (test code = GLUBED) GLUCOSE BEDSIDE [id number] 11:23:00 Test Item Value Reference Range Interpretation Comments GLUCOSE BEDSIDE TESTING 176 MG/DL 60-99 H Noti fied Nurse~ (test code = GLUBED) GLUCOSE BEDSIDE [id number] 06:23:00 Test Item Value Reference Range Interpretation Comments GLUCOSE BEDSIDE TESTING 119 MG/DL 60-99 H Noti fied Nurse~ (test code = GLUBED) BASIC METABOLIC [id number] 05:51:00 Test Item Value Reference Range Interpretation [...] code = 8.5 MG/DL 8.4-10.2 N CA) [id number] 05:51:00 Test Item Value Reference Range Interpretation Comments PHOSPHOROUS (test code = PHOS) 3.6 MG/DL 2.5-4.5 N [id number] 05:51:00 Test Item Value Reference Range Interpretation Comments MAGNESIUM (test code = MAG) 2.2 MG/DL 1.6-2.3 N CBC W/AUTO [id number] 05:34:00 Test Item Value Reference Range Interpretation [...] 0.00 K/mm3 0.0-0.1 N NRBC#) GLUCOSE BEDSIDE [id number] 21:37:00 Test Item Value Reference Range Interpretation Comments GLUCOSE BEDSIDE TESTING (test code 148 MG/DL 60-99 H = GLUBED) GLUCOSE BEDSIDE [id number] 16:01:00 Test Item Value Reference Range Interpretation Comments GLUCOSE BEDSIDE TESTING (test code 144 MG/DL 60-99 H = GLUBED) - US RETROPERITONEAL [id number] 15:45:00 [facility] 1950 Sex: M Patient Name: MI MCKENNA Unit No: [id number] EXAMS: CPT CODE: [id number] US RETROPERITONEAL COM 39430 EXAMINATION: Renal ultrasound INDICATION: Chronic kidney disease COMPARISON: None LOCATION: S17 TECHNIQUE: Grayscale and Doppler sonographic images were obtained of the kidneys. FINDINGS: Right kidney trudy ures 10.3 x 6.3 x 6.2 cm. Normal cortical echogenicity. Normal cortical thickness. No hydronephrosis. Left kidney measures 10.9 x 6.3 x 6.0 cm. Normal cortical echogenicity. Normal cortical thickness. No hydronephrosis. Images of the bladder were not obtained due to indwelling Solano catheter. IMPRESSION: Unremarkable renal ultrasound. at 1545 Reported and signed by: Jerrell Cummins MD CC: Jason Garduno Technologist: Gauri Yoo Transcrpt Date/Tm/Trnsp: 05/05/2021 (1545) EnderPE1 Orig Print D/T: S: 05/05/2021 (7417) [facility] NAME: MI MCKENNA [address] PHYS: [place] [address] : 1950 AGE: 70 SEX: M LOC: Z.456 A PHONE #: [phone] EXAM DATE: 05/05/2021 STATUS: ADM IN FAX #: [phone] RADIOLOGY NO: PAGE 1 Signed Report PARATHYROID HORMONE [id number] 13:37:00 Test Item Value Reference Range Interpretation Comments PARATHYROID HORMONE INTACT (test 83.7 pg/mL 7.5-53.5 H code = PARAI) - XR CHEST [id number] 13:15:00 [facility] : 1950 Sex: M Patient Name: MI MCKENNA Unit No: [id number] EXAMS: CPT CODE: [id number] XR CHEST 1V 24721 EXAMINATION: - XR CHEST 1V. LOCATION: B2. HISTORY: ckd. COMPARISON: None. TECHNIQUE: Single AP view of the chest was obtained. FINDINGS: The heart is normal in size. Calcifications are seen at the aortic arch. The lungs are clear. No acute osseous abnormality is identified. IMPRESSION: No acute cardiopulmonary abnormality. at 1315 Reported and signed by: Amaury Marcos MD CC: Jason Garduno Technologist: Symone Johnson RT(R) Transcrpt Date/Tm/Trnsp: 05/05/2021 (131) t.[email or web address].PR7 Orig Print D/T: S: 05/05/2021 (6358) [facility] NAME: MI MCKENNA [address] PHYS: [place] [address] : 1950 AGE: 70 SEX: M LOC: Z.636 A PHONE #: [phone] EXAM DATE: 05/05/2021 STATUS: ADM IN FAX #: [phone] RADIOLOGY NO: PAGE 1 Signed ReportGLUCOSE BEDSIDE [id number] 11:08:00 Test Item Value Reference Range Interpretation Comments GLUCOSE BEDSIDE TESTING (test code 188 MG/DL 60-99 H = GLUBED) GLUCOSE BEDSIDE [id number] 06:02:00 Test Item Value Reference Range Interpretation Comments GLUCOSE BEDSIDE TESTING (test code 133 MG/DL 60-99 H = GLUBED) GLUCOSE BEDSIDE [id number] 18:36:00 Test Item Value Reference Range Interpretation Comments GLUCOSE BEDSIDE TESTING (test code 178 MG/DL 60-99 H = GLUBED) GLUCOSE BEDSIDE [id number] 15:31:00 Test Item Value Reference Range Interpretation Comments GLUCOSE BEDSIDE TESTING (test code 137 MG/DL 60-99 H = GLUBED) BASIC METABOLIC [id number] 06:20:00 Test Item Value Reference Range Interpretation [...] 8.5 MG/DL 8.4-10.2 N CA) GLUCOSE BEDSIDE [id number] 06:18:00 Test Item Value Reference Range Interpretation Comments GLUCOSE BEDSIDE TESTING (test code 136 MG/DL 60-99 H = GLUBED) PROTHROMBIN [id number] 06:17:00 Test Item Value Reference Range Interpretation [...] dial infarction. 2. 0 - 3.0 3. Delivery Rep al prosthesis hear t valves, recurre nt systemic emboli sm. 3.0 - 4.5 CBC W/AUTO [id number] 06:14:00 Test Item Value Reference Range Interpretation [...] 0.00 K/mm3 0.0-0.1 N NRBC#) GLUCOSE BEDSIDE [id number] 01:21:00 Test Item Value Reference Range Interpretation Comments GLUCOSE BEDSIDE TESTING (test code 180 MG/DL 60-99 H = GLUBED) GLUCOSE BEDSIDE [id number] 01:21:00 Test Item Value Reference Range Interpretation Comments GLUCOSE BEDSIDE TESTING (test code 188 MG/DL 60-99 H = GLUBED) COVID 19 Asymptomatic IH [id number] 23:57:00 Test Item Value Reference Range Interpretation [...] in the sample." Spec Comments: PRE-OPGLUCOSE BEDSIDE [id number] 16:47:00 Test Item Value Reference Range Interpretation Comments GLUCOSE BEDSIDE TESTING (test code 138 MG/DL 60-99 H = GLUBED) GLUCOSE BEDSIDE [id number] 12:31:00 Test Item Value Reference Range Interpretation Comments GLUCOSE BEDSIDE TESTING (test code 143 MG/DL 60-99 H = GLUBED) PROTHROMBIN [id number] 11:49:00 Test Item Value Reference Range Interpretation [...] myocar dial infarction. 2.0 - 3.0 3. Delivery Rep al prosthesis hear t valves, recurre nt systemic emboli sm. 3.0 - 4.5 CBC W/AUTO [id number] 11:42:00 Test Item Value Reference Range Interpretation [...] K/mm3 0.0-0.1 N NRBC#) NT PRO-BRAIN NATRIURETIC [id number] 07:22:00 Test Item Value Reference Range Interpretation Comments NT PRO-BRAIN NATRIURETIC PEPTI 2340.0 pg/mL 0-125 H (test code = PROBNP) BASIC METABOLIC [id number] 06:54:00 Test Item Value Reference Range Interpretation [...] 8.3 MG/DL 8.4-10.2 L CA) CBC W/AUTO [id number] 06:46:00 Test Item Value Reference Range Interpretation [...] 0.00 K/mm3 0.0-0.1 N NRBC#) GLUCOSE BEDSIDE [id number] 06:01:00 Test Item Value Reference Range Interpretation Comments GLUCOSE BEDSIDE TESTING (test code 117 MG/DL 60-99 H = GLUBED) FOLIC ACID BY [id number] 23:46:00 Test Item Value Reference Range Interpretation Comments FOLIC ACID BY BERNARD 5.6 ng/mL REFERENCE VALUES: (test code = FOLR) NORMAL: 2 .76 - >20 ng/ML DEFICIENT: 1.04 - 2.79 ng/ML NT PRO-BRAIN NATRIURETIC [id number] 21:51:00 Test Item Value Reference Range Interpretation Comments NT PRO-BRAIN NATRIURETIC PEPTI 2700.0 pg/mL 0-125 H (test code = PROBNP) UNABLE TO DRAW BLOOD, REASON: REC BLOOD NOTIFIED PATIENT CARE STAFF: WADE 05/02/21 AT 1705 BY Estella MalcolmLUCOSE BEDSIDE [id number] 21:08:00 Test Item Value Reference Range Interpretation Comments GLUCOSE BEDSIDE TESTING (test code 199 MG/DL 60-99 H = GLUBED) GLUCOSE BEDSIDE [id number] 16:46:00 Test Item Value Reference Range Interpretation Comments GLUCOSE BEDSIDE TESTING 135 MG/DL 60-99 H Noti fied Nurse~ (test code = GLUBED) GLUCOSE BEDSIDE [id number] 12:55:00 Test Item Value Reference Range Interpretation Comments GLUCOSE BEDSIDE TESTING 168 MG/DL 60-99 H Noti fied Nurse~ (test code = GLUBED) CBC W/AUTO [id number] 08:43:00 Test Item Value Reference Range Interpretation [...] K/mm3 0.0-0.1 N code = NRBC#) DIFFERENTIAL [id number] 08:43:00 Test Item Value Reference Range Interpretation Comments RBC MORPHOLOGY REQUIRED (test code NORMAL = RBCM) PLATELET ESTIMATE (test code = DECREASED ADEQUATE PLTEST) PLATELET MORPHOLOGY (test code = NORMAL NORMAL PLTMORPH) GLUCOSE BEDSIDE [id number] 08:35:00 Test Item Value Reference Range Interpretation Comments GLUCOSE BEDSIDE TESTING 130 MG/DL 60-99 H Noti fied Nurse~ (test code = GLUBED) BASIC METABOLIC [id number] 06:24:00 Test Item Value Reference Range Interpretation [...] 8.2 MG/DL 8.4-10.2 L CA) CBC W/AUTO [id number] 06:15:00 Test Item Value Reference Range Interpretation Comments WHITE BLOOD CELL (test 4.7 K/MM3 3.8-9.8 N code = WBC) RED BLOOD CELL (test 1.98 M/MM3 3.95-5.67 LL CALLED TO GERALD code = RBC) L & READBACK ON 05/02/21 AT 061 3 BY Dyunco,Chest er HEMOGLOBIN (test code 6.0 G/DL 12.4-16.7 [...] K/mm3 0.0-0.1 N code = NRBC#) DIFFERENTIAL [id number] 06:15:00 Test Item Value Reference Range Interpretation Comments RBC MORPHOLOGY REQUIRED (test code = RBCM) PLATELET ESTIMATE (test code = PLTEST) ADEQUATE PLATELET MORPHOLOGY (test code = NORMAL PLTMORPH) CBC W/AUTO [id number] 06:15:00 Test Item Value Reference Range Interpretation [...] READBACK ON 05/02/21 AT 061 3 BY Dycarolineo,Chest er HEMATOCRIT (test code 19.8 % 35.9-49.5 LL CALLED TO GERALD = HCT) L & READBACK ON 05/02/21 AT 061 3 BY Dycarolineo,Chest er MEAN CELL VOLUME (test 100 fL [...] K/mm3 0.0-0.1 N code = NRBC#) DIFFERENTIAL [id number] 06:15:00 Test Item Value Reference Range Interpretation Comments RBC MORPHOLOGY REQUIRED (test code = RBCM) PLATELET ESTIMATE (test code = PLTEST) ADEQUATE PLATELET MORPHOLOGY (test code = NORMAL PLTMORPH) PROTHROMBIN [id number] 06:02:00 Test Item Value Reference Range Interpretation [...] dial infarction. 2. 0 - 3.0 3. Delivery Rep al prosthesis hear t valves, recurre nt systemic emboli sm. 3.0 - 4.5 GLUCOSE BEDSIDE [id number] 20:58:00 Test Item Value Reference Range Interpretation Comments GLUCOSE BEDSIDE TESTING (test code 195 MG/DL 60-99 H = GLUBED) NT PRO-BRAIN NATRIURETIC [id number] 20:11:00 Test Item Value Reference Range Interpretation Comments NT PRO-BRAIN NATRIURETIC PEPTI 2420.0 pg/mL 0-125 H (test code = PROBNP) PLATELET [id number] 20:03:00 Test Item Value Reference Range Interpretation Comments PLATELET COUNT (test code = PLT) 83 K/MM3 129-368 L PROTHROMBIN [id number] 20:01:00 Test Item Value Reference Range Interpretation [...] myocar dial infarction. 2.0 - 3.0 3. Delivery Rep al prosthesis hear t valves, recurre nt systemic emboli sm. 3.0 - 4.5 PTT [id number] 20:01:00 Test Item Value Reference Range Interpretation Comments PTT ACTIVATED (test code = APTT) 32.5 SECONDS 25.1-36.5 N [id number] 20:01:00 Test Item Value Reference Range Interpretation Comments FIBRINOGEN (test code = FIB) 517 mg/dL 200-393 H [id number] 20:01:00 Test Item Value Reference Range Interpretation [...] f standard radiological pr ocedures. GLUCOSE BEDSIDE [id number] 16:40:00 Test Item Value Reference Range Interpretation Comments GLUCOSE BEDSIDE TESTING 123 MG/DL 60-99 H Noti fied Nurse~ (test code = GLUBED) - XR SHOULDER 2+V [id number] 14:22:00 [facility] 1950 Sex: M PatientName: MI MCKENNA Unit No: [id number] EXAMS: CPT CODE: [id number] XR SHOULDER 2+[place] [address] Examination: Left shoulder series Location code: S17 Comparison: None Discussion: Clinical history is remarkable for fall, pain. 2 views of the left shoulder are submitted. Mineralization is appropriate. No fracture deformity or dislocation is identified. Impression: No acute finding. Electronically Sign ed by Maldonado Ramos on 05/01/2021 at 1422 Reported and signed by: Sukumar Ramos M.D. CC: Technologist: Brady Priest (RT) Transcrpt Date/Tm/Trnsp: 05/01/2021 (1422) [id number] Orig Print D/T: S: 05/01/2021 (4479) [facility] NAME: MI MCKENNA [id number] [place] PHYS: [facility] [place] [address] : 1950 AGE: 70 SEX: M LOC: [id number] PHONE #: [phone] EXAM DATE: 05/01/2021 STATUS: ADM IN FAX #: [phone] RADIOLOGY NO: PAGE 1 Signed ReportGLUCOSE BEDSIDE [id number] 12:02:00 Test Item Value Reference Range Interpretation Comments GLUCOSE BEDSIDE TESTING 141 MG/DL 60-99 H Noti fied Nurse~ (test code = GLUBED) PROTHROMBIN [id number] 07:46:00 Test Item Value Reference Range Interpretation [...] myocar dial infarction. 2.0 - 3.0 3. Delivery Rep al prosthesis hear t valves, recurre nt systemic emboli sm. 3.0 - 4.5 GLUCOSE BEDSIDE [id number] 07:02:00 Test Item Value Reference Range Interpretation Comments GLUCOSE BEDSIDE TESTING 139 MG/DL 60-99 H Noti fied Nurse~ (test code = GLUBED) GLUCOSE BEDSIDE [id number] 20:40:00 Test Item Value Reference Range Interpretation Comments GLUCOSE BEDSIDE TESTING (test code 161 MG/DL 60-99 H = GLUBED) GLUCOSE BEDSIDE [id number] 15:28:00 Test Item Value Reference Range Interpretation Comments GLUCOSE BEDSIDE TESTING (test code 192 MG/DL 60-99 H = GLUBED) GLUCOSE BEDSIDE [id number] 11:21:00 Test Item Value Reference Range Interpretation Comments GLUCOSE BEDSIDE TESTING (test code 176 MG/DL 60-99 H = GLUBED) - MRA NECK W/O [id number] 10:18:00 [facility] 1950 Sex: M Patient Name: MI MCKENNA Unit No: [id number] EXAMS: CPT CODE: [id number] MRA NECK W/O CONT 47404 HISTORY: Syncope Location: C3 TECHNIQUE: Abef-sc-kctfbe MR images of the neck were obtained. Three-D reformatted images are provided. FINDINGS: Motion artifact and noncontrast technique limits evaluation. Vertebral arteries are patent bilaterally. The visualized common carotid arteries and internal carotid arteries are patent. The carotid bifurcations are not well characterized due to motion artifact. There is question of narrowing involving the proximal right internal carotid artery. IMPRESSION: 1. Limited exam due to motion artifact and noncontrast technique. There is question of narrowing involving the proximal right internal carotid artery. If clinically indicated further evaluation with carotid CTA or carotid ultrasound is recommended. at 1018 Reported and signed by: Ryne Balderrama MD CC: Technologist: Edgar Cantu (RT) R (CT) (MRI) TranscrptDate/Tm/Trnsp: 04/30/2021 (1018) [email or web address] Orig Print D/T: S: 04/30/2021 (1021) [facility] NAME: MI MCKENNA [address] PHYS: [place] [address] : 1950 AGE: 70 SEX: M LOC: Z.636 A PHONE #: [phone] EXAM DATE: 04/30/2021 STATUS: ADM IN FAX #: [phone] RADIOLOGY NO: PAGE 1 Signed Report- MRI BRAIN W/O [id number] 10:09:00 [facility] : 1950 Sex: M Patient Name: MI MCKENNA Unit No: [id number] EXAMS: CPT CODE: [id number] MRI BRAIN W/O CONTRAST 55304 HISTORY: Syncope Location: C3 TECHNIQUE: Multiplanar multisequence [...] R (CT) (MRI) Transcrpt Date/Tm/Trnsp: 04/30/2021 (1009) [email or web address] Orig Print D/T: S: 04/30/2021 (1012) [facility] NAME: MI MCKENNA [id number] PHYS: SANVE - Natarajohanne,[place] [address] : 1950 AGE: 70 SEX: M LOC: Z.636 A PHONE #: [phone] EXAM DATE: 04/30/2021 STATUS: ADM IN FAX #: [phone] RADIOLOGY NO: PAGE 1 Signed ReportGLUCOSE BEDSIDE [id number] 06:43:00 Test Item Value Reference Range Interpretation Comments GLUCOSE BEDSIDE TESTING (test code 138 MG/DL 60-99 H = GLUBED) GLUCOSE BEDSIDE [id number] 20:13:00 Test Item Value Reference Range Interpretation Comments GLUCOSE BEDSIDE TESTING (test code 217 MG/DL 60-99 H = GLUBED) GLUCOSE BEDSIDE [id number] 16:12:00 Test Item Value Reference Range Interpretation Comments GLUCOSE BEDSIDE TESTING (test code 126 MG/DL 60-99 H = GLUBED) GLUCOSE BEDSIDE [id number] 11:17:00 Test Item Value Reference Range Interpretation Comments GLUCOSE BEDSIDE TESTING (test code 132 MG/DL 60-99 H = GLUBED) GLUCOSE BEDSIDE [id number] 07:29:00 Test Item Value Reference Range Interpretation Comments GLUCOSE BEDSIDE TESTING (test code 105 MG/DL 60-99 H = GLUBED) GLUCOSE BEDSIDE [id number] 20:29:00 Test Item Value Reference Range Interpretation Comments GLUCOSE BEDSIDE TESTING (test code 136 MG/DL 60-99 H = GLUBED) GLUCOSE BEDSIDE [id number] 17:19:00 Test Item Value Reference Range Interpretation Comments GLUCOSE BEDSIDE TESTING (test code 134 MG/DL 60-99 H = GLUBED) - XR TIBIA/FIBULA 2 V [id number] 15:29:00 [facility] : 1950 Sex: M Patient Name: MI MCKENNA Unit No: [id number] EXAMS: CPT CODE: [id number] XR TIBIA/FIBULA 2 [place] [address] EXAMINATION: - XR TIBIA/FIBULA 2 V RT. [...] Technologist: Gonzalez Fernandez, RT(R) Transcrpt Date/Tm/Trnsp: 04/28/2021 (152) [email or web address] Orig Print D/T: S: 04/28/2021 (153) [facility] NAME: MI MCKENNA [id number] PHYS: Judd KUMAR Do, [place] [address] : 1950 AGE: 70 SEX: M LOC: Z.636 A PHONE #: [phone] EXAM DATE: 04/28/2021 STATUS: ADM IN FAX #: [phone] RADIOLOGY NO: PAGE 1 Signed ReportVITAMIN [id number] 14:08:00 Test Item Value Reference Range Interpretation Comments VITAMIN B12 (test code = VITB12) 909 pg/mL 239-931 N FOLIC ACID BY [id number] 14:08:00 Test Item Value Reference Range Interpretation Comments FOLIC ACID BY BERNARD 7.8 ng/mL REFERENCE VALUES: (test code = FOLR) NORMAL: 2 .76 - >20 ng/ML DEFICIENT: 1.04 - 2.79 ng/ML THYROID STIMULATING [id number] 14:08:00 Test Item Value Reference Range Interpretation Comments THYROID STIMULATING 1.830 MIU/L 0.465-4.68 N Please b e aware that HORMONE (test code = bias re sults for TSH TSH) may occur forpa tient who are taking Biotin suppleme nts. [id number] 14:08:00 Test Item Value Reference Range Interpretation Comments FERRITIN (test code = ELIN) 519.0 NG/ML 6.24-137 H VITAMIN [id number] 13:38:00 Test Item Value Reference Range Interpretation Comments VITAMIN B12 (test code = VITB12) pg/mL 239-931 FOLIC ACID BY [id number] 13:38:00 Test Item Value Reference Range Interpretation Comments FOLIC ACID BY BERNARD (test code = FOLR) ng/mL THYROID STIMULATING [id number] 13:38:00 Test Item Value Reference Range Interpretation Comments THYROID STIMULATING 1.830 MIU/L 0.465-4.68 N Please b e aware that HORMONE (test code = bias re sults for TSH TSH) may occur forpa tient who are taking Biotin suppleme nts. [id number] 13:38:00 Test Item Value Reference Range Interpretation Comments FERRITIN (test code = ELIN) 519.0 NG/ML 6.24-137 H VITAMIN [id number] 13:34:00 Test Item Value Reference Range Interpretation Comments VITAMIN B12 (test code = VITB12) pg/mL 239-931 FOLIC ACID BY [id number] 13:34:00 Test Item Value Reference Range Interpretation Comments FOLIC ACID BY BERNARD (test code = FOLR) ng/mL THYROID STIMULATING [id number] 13:34:00 Test Item Value Reference Range Interpretation Comments THYROID STIMULATING 1.830 MIU/L 0.465-4.68 N Please b e aware that HORMONE (test code = bias re sults for TSH TSH) may occur forpa tient who are taking Biotin suppleme nts. [id number] 13:34:00 Test Item Value Reference Range Interpretation Comments FERRITIN (test code = ELIN) NG/ML 6.24-137 GLUCOSE BEDSIDE [id number] 13:19:00 Test Item Value Reference Range Interpretation [...] code = FESAT) % 12-57 COMPREHENSIVE METABOLIC [id number] 01:12:00 Test Item Value Reference Range Interpretation [...] 38-126 N PHOSPHATASE (test code = ALKP) [id number] 01:12:00 Test Item Value Reference Range Interpretation Comments TROPONIN-I (test code = TROPI) < 0.012 NG/ML 0.012-0.033 L PROTHROMBIN [id number] 01:04:00 Test Item Value Reference Range Interpretation [...] myocar dial infarction. 2.0 - 3.0 3. Delivery Rep al prosthesis hear t valves, recurre nt systemic emboli sm. 3.0 - 4.5 PTT [id number] 01:04:00 Test Item Value Reference Range Interpretation Comments PTT ACTIVATED (test code = APTT) 50.2 SECONDS 25.1-36.5 H COMPREHENSIVE METABOLIC [id number] 01:01:00 Test Item Value Reference Range Interpretation [...] 38-126 N PHOSPHATASE (test code = ALKP) [id number] 01:01:00 Test Item Value Reference Range Interpretation Comments TROPONIN-I (test code = TROPI) NG/ML 0.0-0.045 URINALYSIS [id number] 00:53:00 Test Item Value Reference Range Interpretation [...] UACULT) Criteria SOURCE OF URINE: CLEAN CATCHUA [id number] 00:53:00 Test Item Value Reference Range Interpretation [...] A SOURCE OF URINE: CLEAN CATCHCBC W/AUTO [id number] 00:48:00 Test Item Value Reference Range Interpretation [...] = 0.00 K/mm3 0.0-0.1 N NRBC#) URINALYSIS [id number] 00:46:00 Test Item Value Reference Range Interpretation [...] = UACULT) SOURCE OF URINE: CLEAN CATCHUA [id number] 00:46:00 Test Item Value Reference Range Interpretation Comments UA RBC (test code = RBCU) RBC/HPF 0-3 UA WBC (test code = XWBCU) WBC/HPF 0-5 UA EPITHELIAL CELLS (test code = EPI/HPF FEW EPIU) UA BACTERIA (test code = XBACU) NONE SOURCE OF URINE: CLEAN CATCHURINALYSIS [id number] 00:46:00 Test Item Value Reference Range Interpretation [...] = UACULT) SOURCE OF URINE: CLEAN CATCHUA [id number] 00:46:00 Test Item Value Reference Range Interpretation Comments UA RBC (test code = RBCU) RBC/HPF 0-3 UA WBC (test code = XWBCU) WBC/HPF 0-5 UA EPITHELIAL CELLS (test code = EPI/HPF FEW EPIU) UA BACTERIA (test code = XBACU) NONE SOURCE OF URINE: CLEAN CATCHCOVID 19 INHOUSE [id number] 20:58:00 Test Item Value Reference Range Interpretation Comments COVID 19 INHOUSE AG NEGATIVE Negative Per manu facturer, (test code = negative result s should [id number]) be treated aspr esumptive and, if inconsi [...] and symptoms co nsistent with COVID-19. PROTHROMBIN [id number] 17:27:00 Test Item Value Reference Range Interpretation Comments PT PATIENT (test code = PTP) 16.8 SECONDS 9.3-12.9 H INTERNATIONAL NORMAL RATIO 1.49 INR Unit 0.8-1.2 H (test code = INR) THROMBOPLASTIN TIME [id number] 17:27:00 Test Item Value Reference Range Interpretation Comments THROMBOPLASTIN TIME PARTIAL 44.1 SECONDS 26-35 H (test code = PTT) CBC W/AUTO [id number] 17:00:00 Test Item Value Reference Range Interpretation [...] NT WITH AUTO DIFFERENTI AL. BASIC METABOLIC [id number] 16:52:00 Test Item Value Reference Range Interpretation [...] CK) Completed by Nursing: NONT PRO-BRAIN NATRIURETIC [id number] 16:52:00 Test Item Value Reference Range Interpretation Comments NT PRO-BRAIN NATRIURETIC PEPTI 1361 PG/ML 0-100 H (test code = PROBNP) Completed by Nursing: [id number] 16:52:00 Test Item Value Reference Range Interpretation [...] yby method. Completed by Nursing: NOCBC W/AUTO [id number] 16:28:00 Test Item Value Reference Range Interpretation [...] (test code = DIFF/SCN CRITERIA MDIFF) - PR C-SPINE W/O [id number] 15:41:00 [facility] 1950 Sex: M Name: MI MCKENNA [facility] : 1950 Age/S: 70 / M [address] Unit #: [id number] Loc: [place] [address] Phys: Briseida Montana MD Acct: [id number] Dis Date: Status: REG ER PHONE #: [phone] Exam Date: 04/27/2021 1520 FAX #: Reason: s/p fall EXAMS: CPT: [id number] CT C-SPINE W/O CONT 41575 CLINICAL HISTORY: Syncope, weakness. Fall CT brain, [...] variant. PAGE 1 Signed Report (CONTINUED) Name: NADEGE MCKENNA [facility] : 1950 Age/S: 70 / M [address] Unit #: [id number] Loc: [place] [address] Phys: Briseida Montana MD Acct: [id number] Dis Date: Status: REG ER PHONE #: [phone] Exam Date: 04/27/2021 1520 FAX #: Reason: s/p fall EXAMS: CPT: [id number] CT C-SPINE W/O CONT 44135 <Continued> Scattered mild degenerative changes are seen with some facet hypertrophy anduncinate process hypertrophy. Borderline spinal stenosis seen beginning at the C3 level. The spinal stenosis progressive at the C5-6 level where bony hypertrophy seen posteriorly and uncinate process hypertrophy occurs. Spinal canal diameter on the order of 7 mm. Similar spinal stenosis changes C6-7 with degenerative osteophytes along posterior vertebral body margin as well as mild foraminal stenosisproduced.. The soft tissue window settings do not [...] Ryne Ayers M.D. CC: Briseida Montana MD Technologist:RT Nehemias(R)(CT) CTDI: DLP: Trnscb Date/Time: 04/27/2021 (154) EnderRM61 Orig Print D/T: S: 04/27/2021 (7533) PAGE 2 Signed Report- CT HEAD/BRAIN W/O [id number] 15:41:00 [facility] : 1950 Sex: M Name: MI MCKENNA [facility] : 1950 Age/S: 70 / M [address] Unit #: [id number] Loc: [place] [address] Phys: Briseida Montana MD Acct: [id number] Dis Date: Status:REG ER PHONE #: [phone] Exam Date: 04/27/2021 1520 FAX #: Reason: syncope EXAMS: CPT: [id number] HEAD/BRAIN W/O CONT 18090 CLINICAL HISTORY: Syncope, weakness. Fall CT brain, [...] 1 Signed Report (CONTINUED) Name: MI MCKENNA [facility] : 1950 Age/S: 70 / M [address] [address] Unit #: [id number] Loc: [place] [address] Phys: Briseida Montana MD Acct: [id number] Dis Date: Status: REG ER PHONE #: [phone] Exam Date: 04/27/2021 1520 FAX #: Reason: syncope EXAMS: CPT: [id number] CT HEAD/BRAIN W/O CONT 74850 <Continued> Scattered mild degenerative changes are seen [...] No fracture seen in the cervical spine. Goodalignment. Spinal stenosis, moderate, at the C5- 6 and C6-7 levels due to posterior osteophytes and spondylosis changes. Prominent foraminal stenosis present as well. Borderline spinal stenosis at the upper cervical levels.. Location: 9 at 1541 Reported and signed by: Ryne Ayers M.D. CC: Briseida Montana MD Technologist:RT Nehemias(R)(CT) CTDI: DLP: Trnscb Date/Time: 04/27/2021 (1541) [email or web address] [facility] Print D/T: S: 04/27/2021 (1545) PAGE 2 Signed Report- XR CHEST 1 [id number] 15:40:00 [facility] : 1950 Sex: M Name: MI MCKENNA [facility] : 1950 Age/S: 70 / M [address] Unit #: [id number] Loc: [place] [address] Phys: Briseida Montana MD Acct: [id number] Dis Date: Status: REG ER PHONE #: [phone] Exam Date: 04/27/2021 1525 FAX #: Reason: syncope EXAMS: CPT: [id number] CHEST 1 V 99730 Fluoro Time: DAP (Gy m2): Air Kerma [...] Green MD CC: Briseida Montana MD PAGE 1 Signed Report Name: MI MCKENNA [facility] : 1950 Age/S: 70 / M [address] [address] Unit #: [id number] Loc: [place] [address] Phys: Briseida Montana MD Acct: [id number] Dis Date: Status: REG ER PHONE #: [phone] Exam Date: 04/27/2021 1525 FAX #: Reason: syncope EXAMS: CPT: [id number] XR CHEST 1 V 43597 Fluoro Time: DAP (Gy m2): Air Kerma (mGy): <Continued> Technologist: Amada Coley RT(R)(CT) Trnscb Date/Time: 04/27/2021 (1540) [email or web address] Orig Print D/T: S: 04/27/2021 (9772) PAGE 2 Signed ReportCBC W/AUTO [id number] 14:49:00 Test Item Value Reference Range Interpretation [...] NT WITH AUTO DIFFERENTI AL. CBC W/AUTO [id number] 14:49:00 Test Item Value Reference Range Interpretation [...] CONSISTA NT WITH AUTO DIFFERENTI AL. RBC [id number] 14:49:00 Test Item Value Reference Range Interpretation Comments PLATELET ESTIMATE MARKEDLY DECREASED ADEQUATE PLT ESTIMATE (test code = THOUSAND 80-100,000 PLTEST) PLATELET MORPHOLOGY NORMAL (test code = PLTMORPH) CBC W/AUTO [id number] 14:49:00 Test Item Value Reference Range Interpretation [...] NT WITH AUTO DIFFERENTI AL. GLUCOSE BEDSIDE [id number] 08:45:00 Test Item Value Reference Range Interpretation Comments GLUCOSE BEDSIDE TESTING (test code 105 mg/dL 70-110 N = GLUBED) BASIC METABOLIC [id number] 07:34:00 Test Item Value Reference Range Interpretation [...] = CA) 8.1 MG/DL 8.5-10.1 L PROTHROMBIN [id number] 07:15:00 Test Item Value Reference Range Interpretation Comments PT PATIENT (test code = PTP) 15.3 SECONDS 9.3-12.9 H INTERNATIONAL NORMAL RATIO 1.36 INR Unit 0.8-1.2 H (test code = INR) CBC W/AUTO [id number] 07:11:00 Test Item Value Reference Range Interpretation [...] code = DIFF/SCN CRITERIA MDIFF) GLUCOSE BEDSIDE [id number] 20:23:00 Test Item Value Reference Range Interpretation Comments GLUCOSE BEDSIDE TESTING (test code 182 mg/dL 70-110 H = GLUBED) GLUCOSE BEDSIDE [id number] 18:19:00 Test Item Value Reference Range Interpretation Comments GLUCOSE BEDSIDE TESTING (test code 176 mg/dL 70-110 H = GLUBED) GLUCOSE BEDSIDE [id number] 12:13:00 Test Item Value Reference Range Interpretation Comments GLUCOSE BEDSIDE TESTING (test code 105 mg/dL 70-110 N = GLUBED) CBC W/AUTO [id number] 11:08:00 Test Item Value Reference Range Interpretation [...] code YES DIFF/SCN CRITERIA = MDIFF) WBC [id number] 11:08:00 Test Item Value Reference Range Interpretation [...] NORMAL (test code = PLTMORPH) CBC W/AUTO [id number] 11:07:00 Test Item Value Reference Range Interpretation [...] code YES DIFF/SCN CRITERIA = MDIFF) WBC [id number] 11:07:00 Test Item Value Reference Range Interpretation Comments SEGMENTED NEUTROPHILS (test code = SEG) % 40-75 LYMPHOCYTE (test code = LYMPH) % 12.6-43.5 CBC W/AUTO [id number] 11:07:00 Test Item Value Reference Range Interpretation [...] code YES DIFF/SCN CRITERIA = MDIFF) WBC [id number] 11:07:00 Test Item Value Reference Range Interpretation Comments SEGMENTED NEUTROPHILS (test code = SEG) % 40-75 LYMPHOCYTE (test code = LYMPH) % 12.6-43.5 CBC W/AUTO [id number] 11:07:00 Test Item Value Reference Range Interpretation [...] code YES DIFF/SCN CRITERIA = MDIFF) WBC [id number] 11:07:00 Test Item Value Reference Range Interpretation Comments SEGMENTED NEUTROPHILS (test code = SEG) % 40-75 LYMPHOCYTE (test code = LYMPH) % 12.6-43.5 BASIC METABOLIC [id number] 09:08:00 Test Item Value Reference Range Interpretation [...] CA) 8.3 MG/DL 8.5-10.1 L CBC W/AUTO [id number] 08:47:00 Test Item Value Reference Range Interpretation [...] code = DIFF/SCN CRITERIA MDIFF) GLUCOSE BEDSIDE [id number] 08:30:00 Test Item Value Reference Range Interpretation Comments GLUCOSE BEDSIDE TESTING (test code = 90 mg/dL 70-110 N GLUBED) PROTHROMBIN [id number] 06:56:00 Test Item Value Reference Range Interpretation Comments PT PATIENT (test code = PTP) 19.6 SECONDS 9.3-12.9 H INTERNATIONAL NORMAL RATIO 1.73 INR Unit 0.8-1.2 H (test code = INR) GLUCOSE BEDSIDE [id number] 20:01:00 Test Item Value Reference Range Interpretation Comments GLUCOSE BEDSIDE TESTING (test code 151 mg/dL 70-110 H = GLUBED) PROTHROMBIN [id number] 17:35:00 Test Item Value Reference Range Interpretation Comments PT PATIENT (test code = PTP) 25.8 SECONDS 9.3-12.9 H INTERNATIONAL NORMAL RATIO 2.27 INR Unit 0.8-1.2 H (test code = INR) GLUCOSE BEDSIDE [id number] 17:16:00 Test Item Value Reference Range Interpretation Comments GLUCOSE BEDSIDE TESTING (test code 139 mg/dL 70-110 H = GLUBED) GLUCOSE BEDSIDE [id number] 13:07:00 Test Item Value Reference Range Interpretation Comments GLUCOSE BEDSIDE TESTING (test code 141 mg/dL 70-110 H = GLUBED) GLUCOSE BEDSIDE [id number] 08:22:00 Test Item Value Reference Range Interpretation Comments GLUCOSE BEDSIDE TESTING (test code = 70 mg/dL 70-110 N GLUBED) CBC W/AUTO [id number] 07:08:00 Test Item Value Reference Range Interpretation [...] NT WITH AUTO DIFFERENTI AL. CBC W/AUTO [id number] 07:08:00 Test Item Value Reference Range Interpretation [...] CONSISTA NT WITH AUTO DIFFERENTI AL. RBC [id number] 07:08:00 Test Item Value Reference Range Interpretation Comments PLATELET ESTIMATE (test DECREASED THOUSAND ADEQUATE code = PLTEST) PLATELET MORPHOLOGY (test NORMAL code = PLTMORPH) CBC W/AUTO [id number] 07:08:00 Test Item Value Reference Range Interpretation [...] NT WITH AUTO DIFFERENTI AL. BASIC METABOLIC [id number] 06:21:00 Test Item Value Reference Range Interpretation [...] CA) 8.0 MG/DL 8.5-10.1 L BASIC METABOLIC [id number] 06:16:00 Test Item Value Reference Range Interpretation [...] CA) 8.0 MG/DL 8.5-10.1 L CBC W/AUTO [id number] 05:59:00 Test Item Value Reference Range Interpretation [...] code = DIFF/SCN CRITERIA MDIFF) GLUCOSE BEDSIDE [id number] 20:38:00 Test Item Value Reference Range Interpretation Comments GLUCOSE BEDSIDE TESTING (test code 167 mg/dL 70-110 H = GLUBED) GLUCOSE BEDSIDE [id number] 16:43:00 Test Item Value Reference Range Interpretation Comments GLUCOSE BEDSIDE TESTING (test code 184 mg/dL 70-110 H = GLUBED) UA RFLX MICR CULT IF [id number] 11:34:00 Test Item Value Reference Range Interpretation [...] Criteria Indication for culture: RiskForSepsis-no oth srcLACTIC [id number] 11:34:00 Test Item Value Reference Range Interpretation Comments LACTIC ACID (test code = LACT) 1.5 mmol/L 0.4-2.0 N UA RFLX MICR CULT IF [id number] 11:18:00 Test Item Value Reference Range Interpretation [...] CHK = UACULT) Indication for culture: RiskForSepsis-no oth srcCBC W/AUTO [id number] 10:58:00 Test Item Value Reference Range Interpretation [...] CONSISTA NT WITH AUTO DIFFERENTI AL. LACTIC [id number] 10:06:00 Test Item Value Reference Range Interpretation Comments LACTIC ACID (test code = LACT) 2.5 mmol/L 0.4-2.0 H Coronavirus 2019 nCoV [id number] 10:05:00 Test Item Value Reference Range Interpretation Comments Coronavirus 2019 nCoV Negative Negative Per ma nufacturer, Bedside (test code = negativ e results should [id number]) be treated aspresumptive a nd, if inconsistent [...] tent with COVID-19. - XR CHEST 1 [id number] 10:04:00 [facility] 1950 Sex: M Name: MI MCKENNA [facility] : 1950 Age/S: 70 / M [address] Unit #:[id number] Loc: [place] [address] Phys: Royce Green MD Acct: [id number] Dis Date: Status: REG ER PHONE #: [phone] Exam Date: 04/22/2021 0940 FAX #: Reason: Code Sepsis EXAMS: CPT: [id number] XR CHEST 1 V 04124 Fluoro Time: DAP (Gy m2): Air Kerma [...] No pneumothorax. Musculoskeletal: No significant skeletal abnormality. IMPRESSION: No radiographic evidence of a focal infiltrate. at 1004 Reported and signed by: Cesar Sneed M.D. CC: Royce Green MD PAGE 1 Signed Report Name: MI MCKENNA [facility] : 1950 Age/S: 70 / M [address] [facility] Unit #: [id number] Loc: [place] [address] Phys: Royce Green MD Acct: [id number] Dis Date: Status: REG ER PHONE #: [phone] Exam Date: 04/22/2021 0940 FAX #: Reason: Code Sepsis EXAMS: CPT: [id number] XR CHEST 1 V 55936 Fluoro Time: DAP (Gy m2): Air Kerma (mGy): <Continued> Technologist: Osbaldo Barbour, RT(R)(CT) Trnscb Date/Time: 04/22/2021 (1004) [email or web address] Orig Print D/T: S: 04/22/2021 (1007) PAGE 2 Signed ReportBASIC METABOLIC [id number] 09:55:00 Test Item Value Reference Range Interpretation [...] 8.5-10.1 N Completed by Nursing: NOHEPATIC FUNCTION [id number] 09:55:00 Test Item Value Reference Range Interpretation [...] N code = ALKP) Completed by Nursing: [id number] 09:55:00 Test Item Value Reference Range Interpretation Comments LIPASE (test code = LIP) 242 Unit/L 114-286 N Completed by Nursing: NONT PRO-BRAIN NATRIURETIC [id number] 09:55:00 Test Item Value Reference Range Interpretation Comments NT PRO-BRAIN NATRIURETIC PEPTI 1104 PG/ML 0-100 H (test code = PROBNP) Completed by Nursing: [id number] 09:55:00 Test Item Value Reference Range Interpretation [...] briseida yby method. Completed by Nursing: NOPROTHROMBIN [id number] 09:36:00 Test Item Value Reference Range Interpretation Comments PT PATIENT (test code = PTP) 19.7 SECONDS 9.3-12.9 H INTERNATIONAL NORMAL RATIO 1.74 INR Unit 0.8-1.2 H (test code = INR) THROMBOPLASTIN TIME [id number] 09:36:00 Test Item Value Reference Range Interpretation Comments THROMBOPLASTIN TIME PARTIAL 57.4 SECONDS 26-35 H (test code = PTT) CBC W/AUTO [id number] 09:29:00 Test Item Value Reference Range Interpretation [...] code = DIFF/SCN CRITERIA MDIFF) GLUCOSE BEDSIDE [id number] 11:38:00 Test Item Value Reference Range Interpretation Comments GLUCOSE BEDSIDE TESTING (test code 130 mg/dL 70-110 H = GLUBED) CBC W/AUTO [id number] 10:26:00 Test Item Value Reference Range Interpretation [...] CONSISTA NT WITH AUTO DIFFERENTI AL. RBC [id number] 10:26:00 Test Item Value Reference Range Interpretation Comments PLATELET ESTIMATE DECREASED THOUSAND ADEQUATE PLAT ELET COUNT (test code = REVIEWED AND PLTEST) VERIFIED. PLATELET MORPHOLOGY NORMAL (test code = PLTMORPH) CBC W/AUTO [id number] 10:22:00 Test Item Value Reference Range Interpretation [...] NT WITH AUTO DIFFERENTI AL. CBC W/AUTO [id number] 10:21:00 Test Item Value Reference Range Interpretation [...] NT WITH AUTO DIFFERENTI AL. GLUCOSE BEDSIDE [id number] 09:46:00 Test Item Value Reference Range Interpretation Comments GLUCOSE BEDSIDE TESTING (test code 168 mg/dL 70-110 H = GLUBED) PROTHROMBIN [id number] 08:50:00 Test Item Value Reference Range Interpretation Comments PT PATIENT (test code = PTP) 24.3 SECONDS 9.3-12.9 H INTERNATIONAL NORMAL RATIO 2.14 INR Unit 0.8-1.2 H (test code = INR) BASIC METABOLIC [id number] 08:48:00 Test Item Value Reference Range Interpretation [...] CA) 9.1 MG/DL 8.5-10.1 N CBC W/AUTO [id number] 08:37:00 Test Item Value Reference Range Interpretation [...] code = DIFF/SCN CRITERIA MDIFF) GLUCOSE BEDSIDE [id number] 20:36:00 Test Item Value Reference Range Interpretation Comments GLUCOSE BEDSIDE TESTING (test code 132 mg/dL 70-110 H = GLUBED) GLUCOSE BEDSIDE [id number] 17:01:00 Test Item Value Reference Range Interpretation Comments GLUCOSE BEDSIDE TESTING (test code 120 mg/dL 70-110 H = GLUBED) GLUCOSE BEDSIDE [id number] 16:37:00 Test Item Value Reference Range Interpretation Comments GLUCOSE BEDSIDE TESTING (test code 123 mg/dL 70-110 H = GLUBED) GLUCOSE BEDSIDE [id number] 07:57:00 Test Item Value Reference Range Interpretation Comments GLUCOSE BEDSIDE TESTING (test code = 92 mg/dL 70-110 N GLUBED) CBC W/AUTO [id number] 06:49:00 Test Item Value Reference Range Interpretation [...] CONSISTA NT WITH AUTO DIFFERENTI AL. RBC [id number] 06:49:00 Test Item Value Reference Range Interpretation Comments PLATELET ESTIMATE DECREASED THOUSAND ADEQUATE ROSHNI MATED (test code = PLATELET RANGE = PLTEST) 84,000 - 90,000 PLATELET MORPHOLOGY NORMAL (test code = PLTMORPH) CBC W/AUTO [id number] 06:48:00 Test Item Value Reference Range Interpretation [...] NT WITH AUTO DIFFERENTI AL. CBC W/AUTO [id number] 06:48:00 Test Item Value Reference Range Interpretation [...] NT WITH AUTO DIFFERENTI AL. BASIC METABOLIC [id number] 06:04:00 Test Item Value Reference Range Interpretation [...] = CA) 9.1 MG/DL 8.5-10.1 N PROTHROMBIN [id number] 05:45:00 Test Item Value Reference Range Interpretation Comments PT PATIENT (test code = PTP) 11.9 SECONDS 9.3-12.9 N INTERNATIONAL NORMAL RATIO 1.06 INR Unit 0.8-1.2 N (test code = INR) CBC W/AUTO [id number] 05:40:00 Test Item Value Reference Range Interpretation [...] code = DIFF/SCN CRITERIA MDIFF) GLUCOSE BEDSIDE [id number] 20:17:00 Test Item Value Reference Range Interpretation Comments GLUCOSE BEDSIDE TESTING (test code 156 mg/dL 70-110 H = GLUBED) GLUCOSE BEDSIDE [id number] 17:17:00 Test Item Value Reference Range Interpretation Comments GLUCOSE BEDSIDE TESTING (test code 132 mg/dL 70-110 H = GLUBED) GLUCOSE BEDSIDE [id number] 11:56:00 Test Item Value Reference Range Interpretation Comments GLUCOSE BEDSIDE TESTING (test code 123 mg/dL 70-110 H = GLUBED) GLUCOSE BEDSIDE [id number] 08:11:00 Test Item Value Reference Range Interpretation Comments GLUCOSE BEDSIDE TESTING (test code 103 mg/dL 70-110 N = GLUBED) BASIC METABOLIC [id number] 07:31:00 Test Item Value Reference Range Interpretation [...] CA) 8.8 MG/DL 8.5-10.1 N CBC W/AUTO [id number] 06:16:00 Test Item Value Reference Range Interpretation [...] code NO DIFF/SCN CRITERIA = MDIFF) PROTHROMBIN [id number] 06:15:00 Test Item Value Reference Range Interpretation Comments PT PATIENT (test code = PTP) 13.6 SECONDS 9.3-12.9 H INTERNATIONAL NORMAL RATIO 1.21 INR Unit 0.8-1.2 H (test code = INR) GLUCOSE BEDSIDE [id number] 20:11:00 Test Item Value Reference Range Interpretation Comments GLUCOSE BEDSIDE TESTING (test code 156 mg/dL 70-110 H = GLUBED) GLUCOSE BEDSIDE [id number] 17:31:00 Test Item Value Reference Range Interpretation Comments GLUCOSE BEDSIDE TESTING (test code 130 mg/dL 70-110 H = GLUBED) GLUCOSE BEDSIDE [id number] 12:10:00 Test Item Value Reference Range Interpretation Comments GLUCOSE BEDSIDE TESTING (test code 177 mg/dL 70-110 H = GLUBED) GLUCOSE BEDSIDE [id number] 08:19:00 Test Item Value Reference Range Interpretation Comments GLUCOSE BEDSIDE TESTING (test code 112 mg/dL 70-110 H = GLUBED) BASIC METABOLIC [id number] 08:12:00 Test Item Value Reference Range Interpretation [...] CA) 8.6 MG/DL 8.5-10.1 N AG PROSTATE [id number] 08:12:00 Test Item Value Reference Range Interpretation Comments AG PROSTATE 0.9 ng/mL 0.0-4.0 Bailee ECLIA SPECIFIC (test methodology.A ccording to the code = PSA) [employer], Se rum PSAshould decrease [...] or abs enceof malignant disea se.Performed At: HD [facility] [address] [id number] Ray Singh MD Ph:[phone] RENAL FUNCTION [id number] 06:26:00 Test Item Value Reference Range Interpretation [...] PHOS) 3.4 MG/DL 2.5-4.9 N CBC W/AUTO [id number] 06:21:00 Test Item Value Reference Range Interpretation [...] code NO DIFF/SCN CRITERIA = MDIFF) PROTHROMBIN [id number] 06:21:00 Test Item Value Reference Range Interpretation Comments PT PATIENT (test code = PTP) 12.8 SECONDS 9.3-12.9 N INTERNATIONAL NORMAL RATIO 1.14 INR Unit 0.8-1.2 N (test code = INR) GLUCOSE BEDSIDE [id number] 19:54:00 Test Item Value Reference Range Interpretation Comments GLUCOSE BEDSIDE TESTING (test code 139 mg/dL 70-110 H = GLUBED) GLUCOSE BEDSIDE [id number] 15:57:00 Test Item Value Reference Range Interpretation Comments GLUCOSE BEDSIDE TESTING (test code 134 mg/dL 70-110 H = GLUBED) PROTHROMBIN [id number] 15:44:00 Test Item Value Reference Range Interpretation Comments PT PATIENT (test code = PTP) 13.1 SECONDS 9.3-12.9 H INTERNATIONAL NORMAL RATIO 1.17 INR Unit 0.8-1.2 N (test code = INR) GLUCOSE BEDSIDE [id number] 11:43:00 Test Item Value Reference Range Interpretation Comments GLUCOSE BEDSIDE TESTING (test code 150 mg/dL 70-110 H = GLUBED) GLUCOSE BEDSIDE [id number] 07:56:00 Test Item Value Reference Range Interpretation Comments GLUCOSE BEDSIDE TESTING (test code 121 mg/dL 70-110 H = GLUBED) [id number] 07:18:00 Test Item Value Reference Range Interpretation Comments HAPTOGLOBIN (test code 169 mg/dL 34-355 Perfo rmed At: BN = HAPT) [facility] [id number] ra Jj ADAMS Ph:[phone] CBC W/AUTO [id number] 04:45:00 Test Item Value Reference Range Interpretation [...] NT WITH AUTO DIFFERENTI AL. BASIC METABOLIC [id number] 04:19:00 Test Item Value Reference Range Interpretation [...] CA) 8.7 MG/DL 8.5-10.1 N RENAL FUNCTION [id number] 04:19:00 Test Item Value Reference Range Interpretation Comments ALBUMIN (test code = ALB) 2.1 G/DL 3.4-5.0 L PHOSPHOROUS (test code = PHOS) 3.2 MG/DL 2.5-4.9 N BASIC METABOLIC [id number] 04:14:00 Test Item Value Reference Range Interpretation [...] CA) 8.7 MG/DL 8.5-10.1 N RENAL FUNCTION [id number] 04:14:00 Test Item Value Reference Range Interpretation Comments ALBUMIN (test code = ALB) 2.1 G/DL 3.4-5.0 L PHOSPHOROUS (test code = PHOS) MG/DL 2.5-4.9 THROMBOPLASTIN TIME [id number] 04:10:00 Test Item Value Reference Range Interpretation Comments THROMBOPLASTIN TIME PARTIAL 67.1 SECONDS 26-35 H (test code = PTT) CBC W/AUTO [id number] 04:04:00 Test Item Value Reference Range Interpretation [...] code = DIFF/SCN CRITERIA MDIFF) THROMBOPLASTIN TIME [id number] 21:52:00 Test Item Value Reference Range Interpretation Comments THROMBOPLASTIN TIME PARTIAL 58.9 SECONDS 26-35 H (test code = PTT) GLUCOSE BEDSIDE [id number] 20:06:00 Test Item Value Reference Range Interpretation Comments GLUCOSE BEDSIDE TESTING (test code 155 mg/dL 70-110 H = GLUBED) RENAL FUNCTION [id number] 18:22:00 Test Item Value Reference Range Interpretation [...] PHOS) 2.8 MG/DL 2.5-4.9 N GLUCOSE BEDSIDE [id number] 16:38:00 Test Item Value Reference Range Interpretation Comments GLUCOSE BEDSIDE TESTING (test code 140 mg/dL 70-110 H = GLUBED) THROMBOPLASTIN TIME [id number] 16:25:00 Test Item Value Reference Range Interpretation Comments THROMBOPLASTIN TIME PARTIAL 49.2 SECONDS 26-35 H (test code = PTT) PROTEIN ELECTROPHORESIS [id number] 15:12:00 Test Item Value Reference Range Interpretation Comments TOTAL PROTEIN 5.2 g/dL 6.0-8.5 A (test code = PROTE) ALBUMIN (test 2.5 g/dL 2.9-4.4 A code = ALBE) [id number] 0.2 g/dL 0.0-0.4 (test code = A1G) [id number]-[id number] 0.9 g/dL 0.4-1.0 (test code = A2G) [...] = will follow via [employer]) computer,mail, or fitting room operator delivery.Perfor med At: [facility] [address] [place], [place] [id number] deejay Singh MD Ph:[phone] rformed At: [facility] [facility] [address] [place], [place] [id number] h CN MD Ph:[phone] [Automated mess age] The system [employer] generated this result transmitted ref erence range: (). The reference range was not used to int erpret this result as normal/abnormal . RHEUMATOID FACTOR [id number] 13:11:00 Test Item Value Reference Range Interpretation Comments RHEUMATOID FACTOR <10.0 IU/mL 0.0-13.9 Performed At: SCREEN (test code = [facility] [address]ua7153 RA) [place], [place] [id number] Singh MD Ph:[phone] ANTINUCLEAR ANTIBODIES [id number] 13:11:00 Test Item Value Reference Range Interpretation Comments MARLYN TITER (test code Negative See_Comment Negati ve <1:80 = ANATITR) Borderline 1:80 Positive >1:80Performed At: [facility] [id number] Singh MD Ph:[phone] [ Automated message] The [employer] stem which generated this result transmitted ref erence range: (). The reference range was not u sed to interpret this result as normal/abnormal . GLUCOSE BEDSIDE [id number] 11:18:00 Test Item Value Reference Range Interpretation Comments GLUCOSE BEDSIDE TESTING (test code 157 mg/dL 70-110 H = GLUBED) THROMBOPLASTIN TIME [id number] 08:59:00 Test Item Value Reference Range Interpretation Comments THROMBOPLASTIN TIME PARTIAL 71.0 SECONDS 26-35 H (test code = PTT) GLUCOSE BEDSIDE [id number] 08:05:00 Test Item Value Reference Range Interpretation Comments GLUCOSE BEDSIDE TESTING (test code 109 mg/dL 70-110 N = GLUBED) CBC W/AUTO [id number] 07:59:00 Test Item Value Reference Range Interpretation [...] NT WITH AUTO DIFFERENTI AL. CBC W/AUTO [id number] 06:49:00 Test Item Value Reference Range Interpretation [...] code = DIFF/SCN CRITERIA MDIFF) THROMBOPLASTIN TIME [id number] 00:57:00 Test Item Value Reference Range Interpretation Comments THROMBOPLASTIN TIME PARTIAL 100.9 SECONDS 26-35 HH (test code = PTT) HGB [id number] 22:14:00 Test Item Value Reference Range Interpretation Comments HEMOGLOBIN (test code = HGB) 8.1 G/DL 12.3-15.9 L HEMATOCRIT (test code = HCT) 25.0 % 35.8-46.7 L GLUCOSE BEDSIDE [id number] 20:16:00 Test Item Value Reference Range Interpretation Comments GLUCOSE BEDSIDE TESTING (test code 206 mg/dL 70-110 H = GLUBED) THROMBOPLASTIN TIME [id number] 18:23:00 Test Item Value Reference Range Interpretation Comments THROMBOPLASTIN TIME PARTIAL 46.3 SECONDS 26-35 H (test code = PTT) GLUCOSE BEDSIDE [id number] 16:15:00 Test Item Value Reference Range Interpretation Comments GLUCOSE BEDSIDE TESTING (test code 166 mg/dL 70-110 H = GLUBED) RHEUMATOID FACTOR [id number] 14:11:00 Test Item Value Reference Range Interpretation Comments RHEUMATOID FACTOR <10.0 IU/mL 0.0-13.9 Performed At: HD SCREEN (test code = [facility] [id number] ) [place], [place] [id number] Ray Singh MD Ph:[phone] ANTINUCLEAR ANTIBODIES [id number] 14:11:00 Test Item Value Reference Range Interpretation Comments MARLYN TITER (test code = ANATITR) GLUCOSE BEDSIDE [id number] 11:58:00 Test Item Value Reference Range Interpretation Comments GLUCOSE BEDSIDE TESTING (test code 194 mg/dL 70-110 H = GLUBED) CBC W/AUTO [id number] 11:38:00 Test Item Value Reference Range Interpretation [...] ALREADY DONE WITHIN THE LAST 24 HOURSPROTHROMBIN [id number] 09:14:00 Test Item Value Reference Range Interpretation Comments PT PATIENT (test code = PTP) 12.3 SECONDS 9.3-12.9 N INTERNATIONAL NORMAL RATIO 1.10 INR Unit 0.8-1.2 N (test code = INR) THROMBOPLASTIN TIME [id number] 09:14:00 Test Item Value Reference Range Interpretation Comments THROMBOPLASTIN TIME PARTIAL 36.7 SECONDS 26-35 H (test code = PTT) CBC W/AUTO [id number] 08:45:00 Test Item Value Reference Range Interpretation [...] At: HD SCREEN (test code = [facility] [address]7495 RA) [place], [place] [id number] Ray Singh MD Ph:[phone] ANTINUCLEAR ANTIBODIES [id number] 08:13:00 Test Item Value Reference Range Interpretation Comments MARLYN TITER (test code = ANATITR) MARLYN COMMENT (test code = ANACOM) GLUCOSE BEDSIDE [id number] 08:10:00 Test Item Value Reference Range Interpretation Comments GLUCOSE BEDSIDE TESTING (test code 129 mg/dL 70-110 H = GLUBED) RENAL FUNCTION [id number] 06:39:00 Test Item Value Reference Range Interpretation [...] PHOS) 3.1 MG/DL 2.5-4.9 N ACUTE HEPATITIS [id number] 03:13:00 Test Item Value Reference Range Interpretation Comments AB HEPATITIS A Negative Negative IGM (test code = HAVMAB) AG HEPATITIS B NON REACTIVE NonReactive SURFACE (test INDEX code = HBSAG) AB HEPATITIS B Negative Negative CORE IGM (test code = HBCMAB) AB HEPATITIS C <0.1 0.0-0.9 INFCE Result Units: (test code = s/co ratio Nega tive: HCVAB) < 0.8 Indeterm inate: 0.8 - 0.9 Posit abril: > 0.9 The CDC recommends that a positive HCV an tibody result be follo wed up with a HCV Nucl eic Acid Amplificat ion test (500692).Perfor med At: [facility] [address] [place], [place] [id number] Ray Singh MD Ph:[phone] VANCOMYCIN [id number] 00:25:00 Test Item Value Reference Range Interpretation Comments VANCOMYCIN TROUGH (test code = 23.2 mcG/ML 10-20 H VANCT) GLUCOSE BEDSIDE [id number] 20:19:00 Test Item Value Reference Range Interpretation Comments GLUCOSE BEDSIDE TESTING (test code 170 mg/dL 70-110 H = GLUBED) GLUCOSE BEDSIDE [id number] 17:13:00 Test Item Value Reference Range Interpretation Comments GLUCOSE BEDSIDE TESTING (test code 164 mg/dL 70-110 H = GLUBED) CBC W/AUTO [id number] 15:47:00 Test Item Value Reference Range Interpretation [...] 2.0 % 0.3-2.3 N RETICA) CBC W/AUTO [id number] 14:30:00 Test Item Value Reference Range Interpretation [...] = % 0.3-2.3 N RETICA) COMPREHENSIVE METABOLIC [id number] 12:38:00 Test Item Value Reference Range Interpretation [...] 50-136 N code = ALKP) PROTEIN ELECTROPHORESIS [id number] 12:38:00 Test Item Value Reference Range Interpretation Comments TOTAL PROTEIN (test code = PROTE) ALBUMIN (test code = ALBE) [id number]-9-JFBAUIXC (test code = A1G) [id number]-[id number] (test code = A2G) BETA GLOBULIN (test [...] 25 % calc 12-57 N FESAT) VITAMIN [id number] 12:38:00 Test Item Value Reference Range Interpretation Comments VITAMIN B12 (test code = VITB12) 967 PG/ML 183-986 N FOLIC [id number] 12:38:00 Test Item Value Reference Range Interpretation Comments FOLIC ACID (test code = FOL) 15.10 NG/ML 3.10-17.50 N THYROID STIMULATING [id number] 12:38:00 Test Item Value Reference Range Interpretation Comments THYROID STIMULATING HORMONE 1.790 mcIU/ML 0.340-4.820 N (test code = TSH) GLUCOSE BEDSIDE [id number] 12:08:00 Test Item Value Reference Range Interpretation Comments GLUCOSE BEDSIDE TESTING (test code 135 mg/dL 70-110 H = GLUBED) GLUCOSE BEDSIDE [id number] 08:22:00 Test Item Value Reference Range Interpretation [...] = 18 % calc 12-57 N FESAT) [id number] 07:17:00 Test Item Value Reference Range Interpretation Comments TRANSFERRRIN (test code 134 mg/dL 177-329 A Perf ormed At: BN = TRANSF) [facility] [address] [id number] ra Jj ADAMS Ph:[phone] VITAMIN [id number] 07:17:00 Test Item Value Reference Range Interpretation Comments VITAMIN B12 (test code = VITB12) 948 PG/ML 183-986 N FOLIC [id number] 07:17:00 Test Item Value Reference Range Interpretation Comments FOLIC ACID (test code = FOL) 5.70 NG/ML 3.10-17.50 N [id number] 07:17:00 Test Item Value Reference Range Interpretation Comments FERRITIN (test code = ELIN) 198.4 NG/ML 5.0-323.0 N RENAL FUNCTION [id number] 06:38:00 Test Item Value Reference Range Interpretation [...] PHOS) 3.6 MG/DL 2.5-4.9 N ACUTE HEPATITIS [id number] 05:12:00 Test Item Value Reference Range Interpretation [...] HCV Nucl eic Acid Amplification t est (998023).Perfor med At: [facility] [address] [place], [place] [id number] deejay Singh MD Ph:[phone] GLUCOSE BEDSIDE [id number] 20:15:00 Test Item Value Reference Range Interpretation Comments GLUCOSE BEDSIDE TESTING (test code 177 mg/dL 70-110 H = GLUBED) GLUCOSE BEDSIDE [id number] 16:58:00 Test Item Value Reference Range Interpretation Comments GLUCOSE BEDSIDE TESTING (test code 189 mg/dL 70-110 H = GLUBED) GLUCOSE BEDSIDE [id number] 12:17:00 Test Item Value Reference Range Interpretation Comments GLUCOSE BEDSIDE TESTING (test code 149 mg/dL 70-110 H = GLUBED) GLUCOSE BEDSIDE [id number] 08:20:00 Test Item Value Reference Range Interpretation Comments GLUCOSE BEDSIDE TESTING (test code 122 mg/dL 70-110 H = GLUBED) CBC W/AUTO [id number] 08:19:00 Test Item Value Reference Range Interpretation [...] NT WITH AUTO DIFFERENTI AL. BASIC METABOLIC [id number] 07:04:00 Test Item Value Reference Range Interpretation [...] CA) 8.6 MG/DL 8.5-10.1 N AG PROSTATE [id number] 07:04:00 Test Item Value Reference Range Interpretation Comments AG PROSTATE SPECIFIC (test code = PSA) CBC W/AUTO [id number] 06:52:00 Test Item Value Reference Range Interpretation [...] code = DIFF/SCN CRITERIA MDIFF) GLUCOSE BEDSIDE [id number] 20:43:00 Test Item Value Reference Range Interpretation Comments GLUCOSE BEDSIDE TESTING (test code 163 mg/dL 70-110 H = GLUBED) - DOP ART 1-2 LEVELS [id number] 20:25:00 [facility] 1950 Sex: M Name: MI MCKENNA [facility] : 1950 Age/S: 70 / M [address] Unit #:[id number] Loc: [place] [address] Phys: Alexus Gomez MD Acct: [id number] Dis Date: Status: ADM INPHONE #: [phone] Exam Date: 03/21/20212009 FAX #: Reason: R/O PAD EXAMS: CPT: [id number] DOP ART 1-2 LEVELS HERI 86595 HISTORY: Weakness TECHNIQUE: Grayscale B-mode, color-flow, and spectral Doppler analysis of the bilateral lower extremity arterial vasculature was performed. COMPARISON: None available time of interpretation. FINDINGS: Right lower extremity: Triphasic waveforms are noted in thecommon femoral artery, superficial femoral artery, popliteal artery with monophasic waveforms in the below the knee arterial structures. Left lower extremity: [...] are seen involving the smaller below the knee vessels. at 2024 Reported and signed by: Ryne Balderrama M.D. CC: Alexus Gomez MD Technologist: Mejia Guillermo Trndeb Date/Time: 03/21/2021 (2024) EnderRXC2 PAGE 1 Signed Report Name: MI MCKENNA [facility] : 1950 Age/S: 70 / M [address] Unit #: [id number] Loc: [place] [address] Phys: Alexus Gomez MD Acct: [id number] Dis Date: Status: ADM IN PHONE #: [phone] Exam Date: 2009 FAX #: Reason: R/O PAD EXAMS: CPT: [id number] DOP ART 1-2 LEVELS HERI 38481 <Continued>Orig Print D/T: S: 03/21/2021 (2027) Probe: PAGE 2 Signed Report- DUP LE ART [id number] 20:25:00 [facility] : 1950 Sex: M Name: MI MCKENNA [facility] : 1950 Age/S: 70 / M [address] Unit #: [id number] Loc: [place] [address] Phys: Alexus Gomez MD Acct: [id number] Dis Date: Status: ADM IN PHONE #: [phone] Exam Date: 03/21/2021 175 FAX #: Reason: R/O PAD EXAMS: CPT: [id number] DUP LE ART HERI [address] HISTORY: Weakness TECHNIQUE: Grayscale B-mode, color-flow, and spectral Doppler analysis of the bilateral lower extremity arterial vasculature was performed. COMPARISON: None available time of interpretation. FINDINGS: Right lower extremity: Triphasic waveforms are noted in the commonfemoral artery, superficial femoral artery, popliteal artery with monophasic waveforms in the below the knee arterial structures. Left lower extremity: [...] are seen involving the smaller below the knee vessels. at 2024 Reported and signed by: Ryne Balderrama M.D. CC: Alexus Gomez MD Technologist: Mejia Guillermo Trnscb Date/Time: 03/21/2021 (2024) EnderRXC2 PAGE 1 Signed Report Name: MI MCKENNA [facility] : 1950 Age/S: 70 / M [address] Unit #: [id number] Loc: [place] [address] Phys: Alexus Gomez MD Acct: [id number] Dis Date: Status: ADM IN PHONE #: [phone] Exam Date: 03/21/2021 1750 FAX #: Reason: R/O PAD EXAMS: CPT: [id number] DUP LE ART HERI [address] <Continued> Orig Print D/T: S: 03/21/2021 (2027) Probe: PAGE 2 Signed Report- DUP VEIN [id number] 18:34:00 [facility] : 1950 Sex: M Name: MI MCKENNA [facility] : 1950 Age/S: 70 / M [address] [facility] Unit #:[id number] Loc: [place] [address] Phys: Elaine Fontaine DPM Acct: [id number] Dis Date: Status: ADM IN PHONE #: [phone] Exam Date: 03/21/2021 1655 FAX #: Reason: R/O DVT EXAMS: CPT: [id number] DUP VEIN HERI [address] LOCATION CODE: H 31 LOWER EXTREMITY VENOUS [...] obtained. Left leg: The deep venous system iswell visualized without evidence of intraluminal filling defect, [...] at the distal (lower aspect) right femoral vein, suspicious for partial DVT. 2. Left leg: No evidence of deep venous thrombosis. at 1834 Reported and signed by: Ella Arthur MD CC: Alexus Gomez MD; Elaine Fontaine DPM Technologist: Mejia Guillermo [facility] Date/Time: 03/21/2021 (1833) EnderEFM1 PAGE 1 Signed Report Name: [facility] : 1950 Age/S: 70 / M [address] Unit #: [id number] Loc: [place] [address] Phys:Elaine Fontaine DPM Acct: [id number] Dis Date: Status: ADM IN PHONE #: [phone] Exam Date: 03/21 1651 FAX #: Reason: R/O DVT EXAMS: CPT: [id number] DUP VEIN HERI [address] <Continued> Orig Print D/T: S: 03/21/2021 (1836) Probe: PAGE 2 Signed ReportGLUCOSE BEDSIDE [id number] 16:38:00 Test Item Value Reference Range Interpretation Comments GLUCOSE BEDSIDE TESTING (test code 161 mg/dL 70-110 H = GLUBED) - MRI LOW EXT W/O CONT [id number] 15:50:00 [facility] 1950 Sex: M FAX: Alexus Perez MD Camps: PM St: ADM Name: MI MCKENNA [facility] : 1950 Age/S: 70/M [address] Unit #: [id number] Loc: [address] [place] [address] Phys: Alexus Gomez MD Acct: [id number] Date: Status: ADM IN PHONE #: [phone] Exam Date: 03/21/2021 1542 FAX #: Reason: CELLULITIS, EVALUATE FOR ABSCESS EXAMS: CPT: [id number] MRI LOW EXT W/[place] [id number] EXAM: - MRI LOW EXT W/O CONT LT HISTORY: CELLULITIS, EVALUATE FOR ABSCESS COMPARISON: None available at time of interpretation. TECHNIQUE: Multi sequential, multiplanar noncontrast MR images of the left leg. FINDINGS: Bones: No areas of confluent T1 hypointensity identified. Soft tissues: No drainable fluid collection. Extens abril subcutaneous stranding and edema is noted. Muscles/tendons: Partial fatty atrophy of the leg musculature is noted. IMPRESSION: No osteomyelitis. No drainable fluid collection. Extensive subcutaneous inflammation/edema. at 1550 R eported and signed by: CAROLINA HACKETT M.D. CC: Alexus Gomez MD Technologist: Fany Pool RT(R)(CT); RT Tex(R)(MR) Transcribed Date/Time/By: 03/21/2021 (1550) :[email or web address] Orig Print D/T: S: 03/21/2021 (9981) PAGE 1 Signed Report- US RETRO [id number] 14:13:00 [facility] 1950 Sex: M Name: MI MCKENNA [facility] : 1950 Age/S: 70 / M [address] Unit #: [id number] Loc: [place] [address] Phys: Supa Laird MD Acct: [id number] Dis Date: Status: ADM IN PHONE #: [phone] Exam Date: 03/21/2021 1348 FAX #: Reason: eval of ckd vs jitendra EXAMS: CPT: [id number] [facility] LTD 48377 Bilateral renal ultrasound. History: eval of ckd vs jitendra Comparison:None at this time Location: H45 The right kidney measures 11.6 and the left kidney measures 12.3 cm in length. There is no hydronephrosis. The echotexture of both kidneys is unremarkable. No renal masses are identified. IMPRESSION: Unremarkable exam. at 1413 Reported and signed by: Jerrell Morales M.D. CC: Alexus Gomez MD; Supa Laird MD Technologist: Mejia Guillermo Trnscb Date/Time: 03/21/2021 (3983) EnderPMT PAGE 1 Signed Report Name: MI MCKENNA [facility] : 1950 Age/S: 70 / M [address] Unit #: [id number] Loc: [place] [address] Phys: Supa Laird MD Acct: [id number] Dis Date: Status: ADM IN PHONE #: [phone] Exam Date: 03/21/2021 1348 FAX #: Reason: eval of ckd vs jitendra EXAMS: CPT: [id number] [facility] [address] <Continued> Orig Print D/T: S: 03/21/2021 (1417) Probe: PAGE 2 Signed ReportGLUCOSE BEDSIDE [id number] 11:22:00 Test Item Value Reference Range Interpretation [...] = 18 % calc 12-57 N FESAT) [id number] 07:34:00 Test Item Value Reference Range Interpretation Comments TRANSFERRRIN (test code = TRANSF) VITAMIN [id number] 07:34:00 Test Item Value Reference Range Interpretation Comments VITAMIN B12 (test code = VITB12) 948 PG/ML 183-986 N FOLIC [id number] 07:34:00 Test Item Value Reference Range Interpretation Comments FOLIC ACID (test code = FOL) 5.70 NG/ML 3.10-17.50 N [id number] 07:34:00 Test Item Value Reference Range Interpretation Comments FERRITIN (test code = ELIN) 198.4 NG/ML 5.0-323.0 N [id number] 07:25:00 Test Item Value Reference Range Interpretation Comments GLYCOSYLATED HEMOGLOBIN (HA1C) 6.8 % A1C 0.0-5.7 H (test code = GLYHGB) ESTIMATED AVERAGE GLUCOSE (test 148 MG/DLest code = EAG) HGB [id number] 07:00:00 Test Item Value Reference Range Interpretation Comments HEMOGLOBIN (test code = HGB) 6.7 G/DL 12.3-15.9 L HEMATOCRIT (test code = HCT) 20.3 % 35.8-46.7 L - US ABDOMEN [id number] 19:52:00 [facility] : 1950 Sex: M Name: MI MCKENNA [facility] : 1950 Age/S: 70 / M [id number] Unit #: [id number] Loc: [place] [address] Phys: Alexus Gomez MD Acct: [id number] Dis Date: Status: ADM INPHONE #: [phone] Exam Date: 03/20/20211944 FAX #: Reason: HISTORY OF LIVER DISEASE EXAMS: CPT: [id number] ABDOMEN [facility] [address] EXAM: - US ABDOMEN [facility] INDICATION: HISTORY OF LIVER DISEASE Location: T 18. TECHNIQUE: Real-time grayscale, color-flow and spectral Doppler images were obtained of the abdomen using a curved transducer with attention to the right upper quadrant. COMPARISON: None FINDINGS: Visualized pancreas and aorta: Appear grossly unremarkable. Liver: Liver demonstrates slightly he terogeneousechotexture. It measures 19.4cm in size. Main portal vein appears patent, and demonstrates hepatopedal flow. Bile ducts: Mild intrahepatic or extrahepatic [...] clinically warranted, consider correlation with MRCP. at [facility] Reported and signed by: Jose Ron M.D. PAGE 1 Signed Report (CONTINUED) Name: MI MCKENNA [facility] : 1950 Age/S: 70 /M [address] Unit #: [id number] Loc: [place] [address] Phys: Alexus Gomez MD Acct: [id number] Dis Date: Status: ADM IN PHONE #: [phone] Exam Date: 03/20/20211944 FAX #: Reason: HISTORY OF LIVER DISEASE EXAMS: CPT: [id number] [facility] ABDOMEN LTD [address]3692 <Continued> CC: Alexus Gomez MDTechnologist: YURIY Acuña [facility] Date/Time: 03/20/2021 (1952) EnderAH26 PAGE 2 Signed Report Name: MI MCKENNA [facility] : 1950 Age/S: 70 / M [address] Unit #:[id number] Loc: [place] [address] Phys: Alexus Gomez MD Acct: [id number] Dis Date: Status: ADM INPHONE #: [phone] Exam Date: 03/20/20211944 FAX #: Reason: HISTORY OF LIVER DISEASE EXAMS: CPT:[id number] US ABDOMEN LTD [address]207 <Continued> Orig Print D/T: S: 03/20/2021 (1955) Probe: PAGE 3 Signed Report- XR TOE(S) 2+V [id number] 19:23:00 [facility] : 1950 Sex: M Name: MI MCKENNA [facility] : 1950 Age/S: 70 / M [address] Unit #: [id number] Loc: [place] [address] Phys: Alexus Gomez MD Acct: [id number] Dis Date: Status: ADM IN PHONE #: [phone] Exam Date: 03/20/20211899 FAX #: Reason: R big toe swelling/tender EXAMS: CPT: [id number] XR TOE(S) 2+V [place] [address] Fluoro Time: DAP (Gy m2): Air Kerma (mGy): EXAM: - XR FOOT 2 VIEWSRT, - XR TOE(S) 2+V RT INDICATION: evaluate [...] PAGE 1 Signed Report Name: MI MCKENNA [facility] : 1950 Age/S: 70 / M [address] Unit #: [id number] Loc:[place] [address] Phys: Alexus Gomez MD Acct: [id number] Dis Date: Status: ADM IN PHONE #: [phone] Exam Date: 03/20/2021 1900 FAX #: Reason: R big toe swelling/tender EXAMS: CPT: [id number] XR TOE(S) 2+[place] [address] Fluoro Time: DAP (Gy m2): Air Kerma (mGy): <Continued> Technologist: Liana Silva, RT(R) Trnscb Date/Time: 03/20/2021 (1922) EmeliR.AH26 Orig Print D/T: S: 03/20/2021 (1925) PAGE 2 Signed Report- XR FOOT 2 VIEWS [id number] 19:23:00 [facility] : 1950 Sex: M Name: MI MCKENNA [facility] : 1950 Age/S: 70 / M [address] [facility] [address] Unit #:[id number] Loc: [place] [address] Phys: Alexus Gomez MD Acct: [id number] Dis Date: Status: ADM INPHONE #: [phone] Exam Date: 03/20/2021 1855 FAX #: Reason: evaluate for fracture/tenderness EXAMS: CPT: [id number] [place] [address] [place] [address] Fluoro Time: DAP (Gy m2): Air Kerma [...] PAGE 1 Signed Report Name: MI MCKENNA [facility] : 1950 Age/S: 70 / M [address] Unit #: [id number] Loc: [place] [address] Phys: Alexus Gomez MD Acct: [id number] Dis Date: Status: ADM IN PHONE #: [phone] Exam Date: 03/20/2021 1855 FAX #: Reason: evaluate for fracture/tenderness EXAMS: CPT: [id number] [place]R [place] [address] [place] [address] Fluoro Time: DAP (Gy m2): Air Kerma (mGy): <Continued> Technologist: Liana Silva RT(R) Trnscb Date/Time: 03/20/2021 (1922) [email or web address] Orig Print D/T: S: 03/20/2021 (1925) PAGE 2 Signed ReportCBC W/AUTO [id number] 15:58:00 Test Item Value Reference Range Interpretation [...] code YES DIFF/SCN CRITERIA = MDIFF) WBC [id number] 15:58:00 Test Item Value Reference Range Interpretation Comments SEGMENTED NEUTROPHILS (test code = SEG) % 40-75 LYMPHOCYTE (test code = LYMPH) % 12.6-43.5 CBC W/AUTO [id number] 15:58:00 Test Item Value Reference Range Interpretation [...] code YES DIFF/SCN CRITERIA = MDIFF) WBC [id number] 15:58:00 Test Item Value Reference Range Interpretation [...] NORMAL (test code = PLTMORPH) CBC W/AUTO [id number] 15:58:00 Test Item Value Reference Range Interpretation [...] code YES DIFF/SCN CRITERIA = MDIFF) WBC [id number] 15:58:00 Test Item Value Reference Range Interpretation Comments SEGMENTED NEUTROPHILS (test code = SEG) % 40-75 LYMPHOCYTE (test code = LYMPH) % 12.6-43.5 NT PRO-BRAIN NATRIURETIC [id number] 15:48:00 Test Item Value Reference Range Interpretation Comments NT PRO-BRAIN NATRIURETIC PEPTI 1149 PG/ML 0-100 H (test code = PROBNP) UA RFLX MICR CULT IF [id number] 15:48:00 Test Item Value Reference Range Interpretation [...] = UACULT) Criteria Indication for culture: Dysuria/FrequencyLACTIC [id number] 15:45:00 Test Item Value Reference Range Interpretation Comments LACTIC ACID (test code = LACT) 1.3 mmol/L 0.4-2.0 N BASIC METABOLIC [id number] 15:45:00 Test Item Value Reference Range Interpretation [...] 8.5-10.1 N Completed by Nursing: NOHEPATIC FUNCTION [id number] 15:45:00 Test Item Value Reference Range Interpretation [...] N code = ALKP) Completed by Nursing: [id number] 15:45:00 Test Item Value Reference Range Interpretation [...] may briseida yby method. Completed by Nursing: NOCOVID 19 INHOUSE [id number] 15:44:00 Test Item Value Reference Range Interpretation Comments COVID 19 INHOUSE AG NEGATIVE Negative Per manu facturer, (test code = negative result s should [id number]) be treated aspr esumptive and, if inconsi [...] symptoms co nsistent with COVID-19. BASIC METABOLIC [id number] 15:42:00 Test Item Value Reference Range Interpretation [...] 8.5-10.1 N Completed by Nursing: NOHEPATIC FUNCTION [id number] 15:42:00 Test Item Value Reference Range Interpretation [...] 50-136 code = ALKP) Completed by Nursing: [id number] 15:42:00 Test Item Value Reference Range Interpretation Comments TROPONIN-I (test code = TROPI) NG/ML 0.000-0.045 Completed by Nursing: NO- XR CHEST 1 [id number] 15:42:00 [facility] 1950 Sex: M Name: MI MCKENNA : 1950 Age/S: 70 / M [id number] [place] [address] Unit #: [id number] Loc: [place] [address] Phys: Briseida Montana MD Acct: [id number] Dis Date: Status: REG ER PHONE #: [phone] Exam Date: 03/20/2021 1533 FAX #: Reason: Code Sepsis EXAMS: CPT: [id number] XR CHEST 1 V 48086 Fluoro Time: DAP (Gy m2): Air Kerma (mGy): Chest Radiograph History: Code Sepsis Comparison: None at this time Location: H45 A single frontal view of the chest is submitted. The heart is within normal limits in size. Pulmonary vasculature is unremarkable. The visualized lung bermeo appear to be free of disease. The bones appear unremarkable. IMPRESSION: There is no radiographic evidenceof acute cardiopulmonary disease. at 1542 Reported and signed by: Jerrell Morales M.D. CC: Briseida Montana MD; Arabella HAND PAGE 1 Signed Report Name: MI MCKENNA : 1950 Age/S: 70 / M [address] [place] [address] Unit #: [id number] Loc: [place] [address] Phys: Briseida Montana MD Acct: [id number] Dis Date: Status: REG ER PHONE #: [phone] Exam Date: 03/20/2021 8354 FAX #: Reason: Code Sepsis EXAMS: CPT: [id number] XR CHEST 1 V 94141 Fluoro Time: DAP (Gy m2): Air Kerma (mGy): <Continued> Technologist: RT Albert(R) Trnscb Date/Time: 03/20/2021 (1542) EnderPMT Orig Print D/T: S: 03/20/2021 (6178) PAGE 2 Signed ReportUA RFLX MICR CULT IF [id number] 15:34:00 Test Item Value Reference Range Interpretation [...] = UACULT) Indication for culture: Dysuria/FrequencyCBC W/AUTO [id number] 15:32:00 Test Item Value Reference Range Interpretation [...] (test code = DIFF/SCN CRITERIA MDIFF) HGB [id number] 21:02:00 Test Item Value Reference Range Interpretation Comments HEMOGLOBIN (test code = HGB) 7.4 gram/dL 13.0-17.5 L HEMATOCRIT (test code = HCT) 23.3 % 42.0-52.0 L URINE AND [id number] 20:43:00 Test Item Value Reference Range Interpretation Comments UA Turbidity (test code = Clear (07/21/18 3:43 UA Turbidity) PM) [facility] AND [id number] 20:43:00 Test Item Value Reference Range Interpretation Comments UA Spec Grav (test code = UA Spec 1.010 1 Grav) [facility] AND [id number] 20:43:00 Test Item Value Reference Range Interpretation Comments UA Protein (test code = UA Negative mg/dL Protein) [facility] AND [id number] 20:43:00 Test Item Value Reference Range Interpretation Comments UA pH (test code = UA pH) 6.0 1 5.0-8.0 [facility] AND [id number] 20:43:00 Test Item Value Reference Range Interpretation Comments UA Ketones (test code = UA Negative mg/dL Ketones) [facility] AND [id number] 20:43:00 Test Item Value Reference Range Interpretation Comments UA Glucose (test code = UA Negative mg/dL Glucose) [facility] AND [id number] 20:43:00 Test Item Value Reference Range Interpretation Comments UA Bili (test code = Negative *NA*(07/21/18 UA Bili) 3:43 PM) [facility] AND [id number] 20:43:00 Test Item Value Reference Range Interpretation Comments UA Color (test code = UA Color) Ltyellow [facility] AND [id number] 20:43:00 Test Item Value Reference Range Interpretation Comments UA Urobilinogen (test code = UA 2.0 0.1-1.0 Urobilinogen) [facility] AND [id number] 20:43:00 Test Item Value Reference Range Interpretation Comments UA Blood (test code = Negative (07/21/18 3:43 UA Blood) PM) [facility] AND [id number] 20:43:00 Test Item Value Reference Range Interpretation Comments UA Leuk Est (test Negative (07/21/18 3:43 code = UA Leuk Est) PM) [facility] AND [id number] 20:43:00 Test Item Value Reference Range Interpretation Comments UA Nitrite (test code Negative (07/21/18 3:43 = UA Nitrite) PM) [facility] AND [id number] 20:43:00 Test Item Value Reference Range Interpretation Comments UA WBC (test code = no gt See_Comment [Automa didi message] The UA WBC) system which ge nerated this result transmit didi reference range : <=5. The reference range was not used to interpr et this result as james l/abnormal. [facility] AND [id number] 20:43:00 Test Item Value Reference Range Interpretation Comments UA Sq Epi (test code = UA Sq Occasional /LPF Epi) [facility] AND [id number] 20:43:00 Test Item Value Reference Range Interpretation Comments UA Bacteria (test code = UA Occasional /HPF Bacteria) [facility] AND [id number] 20:43:00 Test Item Value Reference Range Interpretation Comments UA Mucus (test code = UA Mucus) Few /LPF [facility] AND [id number] 20:43:00 Test Item Value Reference Range Interpretation Comments UA Turbidity (test code = Clear (07/21/18 3:43 UA Turbidity) PM) [facility] AND [id number] 20:43:00 Test Item Value Reference Range Interpretation Comments UA Spec Grav (test code = UA Spec 1.010 1 Grav) [facility] AND [id number] 20:43:00 Test Item Value Reference Range Interpretation Comments UA Protein (test code = UA Negative mg/dL Protein) [facility] AND [id number] 20:43:00 Test Item Value Reference Range Interpretation Comments UA pH (test code = UA pH) 6.0 1 5.0-8.0 [facility] AND [id number] 20:43:00 Test Item Value Reference Range Interpretation Comments UA Ketones (test code = UA Negative mg/dL Ketones) [facility] AND [id number] 20:43:00 Test Item Value Reference Range Interpretation Comments UA Glucose (test code = UA Negative mg/dL Glucose) [facility] AND [id number] 20:43:00 Test Item Value Reference Range Interpretation Comments UA Bili (test code = Negative *NA*(07/21/18 UA Bili) 3:43 PM) [facility] AND [id number] 20:43:00 Test Item Value Reference Range Interpretation Comments UA Color (test code = UA Color) Ltyellow [facility] AND [id number] 20:43:00 Test Item Value Reference Range Interpretation Comments UA Urobilinogen (test code = UA 2.0 0.1-1.0 Urobilinogen) [facility] AND [id number] 20:43:00 Test Item Value Reference Range Interpretation Comments UA Blood (test code = Negative (07/21/18 3:43 UA Blood) PM) [facility] AND [id number] 20:43:00 Test Item Value Reference Range Interpretation Comments UA Leuk Est (test Negative (07/21/18 3:43 code = UA Leuk Est) PM) [facility] AND [id number] 20:43:00 Test Item Value Reference Range Interpretation Comments UA Nitrite (test code Negative (07/21/18 3:43 = UA Nitrite) PM) [facility] AND [id number] 20:43:00 Test Item Value Reference Range Interpretation Comments UA WBC (test code = no gt See_Comment [Automa didi message] The UA WBC) system which ge nerated this result transmit didi reference range : <=5. The reference range was not used to interpr et this result as james l/abnormal. [facility] AND [id number] 20:43:00 Test Item Value Reference Range Interpretation Comments UA Sq Epi (test code = UA Sq Occasional /LPF Epi) [facility] AND [id number] 20:43:00 Test Item Value Reference Range Interpretation Comments UA Bacteria (test code = UA Occasional /HPF Bacteria) [facility] AND [id number] 20:43:00 Test Item Value Reference Range Interpretation Comments UA Mucus (test code = UA Mucus) Few /LPF [facility] AND [id number] 20:43:00 Test Item Value Reference Range Interpretation Comments UA Turbidity (test code = Clear (07/21/18 3:43 UA Turbidity) PM) [facility] AND [id number] 20:43:00 Test Item Value Reference Range Interpretation Comments UA Spec Grav (test code = UA Spec 1.010 1 Grav) [facility] AND [id number] 20:43:00 Test Item Value Reference Range Interpretation Comments UA Protein (test code = UA Negative mg/dL Protein) [facility] AND [id number] 20:43:00 Test Item Value Reference Range Interpretation Comments UA pH (test code = UA pH) 6.0 1 5.0-8.0 [facility] AND [id number] 20:43:00 Test Item Value Reference Range Interpretation Comments UA Ketones (test code = UA Negative mg/dL Ketones) [facility] AND [id number] 20:43:00 Test Item Value Reference Range Interpretation Comments UA Glucose (test code = UA Negative mg/dL Glucose) [facility] AND [id number] 20:43:00 Test Item Value Reference Range Interpretation Comments UA Bili (test code = Negative *NA*(07/21/18 UA Bili) 3:43 PM) [facility] AND [id number] 20:43:00 Test Item Value Reference Range Interpretation Comments UA Color (test code = UA Color) Ltyellow [facility] AND [id number] 20:43:00 Test Item Value Reference Range Interpretation Comments UA Urobilinogen (test code = UA 2.0 0.1-1.0 Urobilinogen) [facility] AND [id number] 20:43:00 Test Item Value Reference Range Interpretation Comments UA Blood (test code = Negative (07/21/18 3:43 UA Blood) PM) [facility] AND [id number] 20:43:00 Test Item Value Reference Range Interpretation Comments UA Leuk Est (test Negative (07/21/18 3:43 code = UA Leuk Est) PM) [facility] AND [id number] 20:43:00 Test Item Value Reference Range Interpretation Comments UA Nitrite (test code Negative (07/21/18 3:43 = UA Nitrite) PM) [facility] AND [id number] 20:43:00 Test Item Value Reference Range Interpretation Comments UA WBC (test code = no gt See_Comment [Automa didi message] The UA WBC) system which ge nerated this result transmit didi reference range : <=5. The reference range was not used to interpr et this result as james l/abnormal. [facility] AND [id number] 20:43:00 Test Item Value Reference Range Interpretation Comments UA Sq Epi (test code = UA Sq Occasional /LPF Epi) [facility] AND [id number] 20:43:00 Test Item Value Reference Range Interpretation Comments UA Bacteria (test code = UA Occasional /HPF Bacteria) [facility] AND [id number] 20:43:00 Test Item Value Reference Range Interpretation Comments UA Mucus (test code = UA Mucus) Few /LPF [facility] [employer] [id number] 19:31:00 Test Item Value Reference Range Interpretation Comments ABO/Rh (test code = ABO/Rh) O POS [facility] [employer] [facility] [id number] 19:31:00 Test Item Value Reference Range Interpretation Comments Antibody Scrn (test Negative (07/21/18 2:31 code = Antibody Scrn) PM) [facility] [employer] [place]/L[facility] [id number] 19:31:00 Test Item Value Reference Range Interpretation Comments Troponin-I (test code no gt See_Comment [Auto mated message] The = Troponin-I) system which g enerated this result transmit didi reference range : <=0.40. The reference r katie was not used to interpr et this result as james l/abnormal. [facility] [employer] [id number] 19:31:00 Test Item Value Reference Range Interpretation Comments Total CK (test code = Total CK) 107 12-191 [facility] [employer] [id number] 19:31:00 Test Item Value Reference Range Interpretation Comments Lipase Lvl (test code = Lipase Lvl) 320 73-393 [facility] [employer] [id number] 19:31:00 Test Item Value Reference Range Interpretation Comments Phosphorus (test code = Phosphorus) 3.4 2.5-4.5 [facility] [employer] [id number] 19:31:00 Test Item Value Reference Range Interpretation Comments Magnesium Lvl (test code = Magnesium 1.3 1.8-2.4 Lvl) [facility] [employer] [id number] 19:31:00 Test Item Value Reference Range Interpretation Comments A/G Ratio (test code = A/G Ratio) 0.8 1 0.7-1.6 [facility] [employer] [id number] 19:31:00 Test Item Value Reference Range Interpretation Comments Globulin (test code = Globulin) 3.6 2.7-4.2 [facility] [employer] [id number] 19:31:00 Test Item Value Reference Range Interpretation Comments AGAP (test code = AGAP) 13.3 10.0-20.0 [facility] [employer]2018-09-15 19:31:00 Test Item Value Reference Range Interpretation Comments B/C Ratio (test code = B/C Ratio) 17 1 6-25 [facility] [employer] [id number] 19:31:00 Test Item Value Reference Range Interpretation Comments eGFR (test code = eGFR) 69 [facility] [employer]2018-09-15 19:31:00 Test Item Value Reference Range Interpretation Comments Calcium Lvl (test code = Calcium Lvl) 8.8 8.5-10.5 [facility]2018-09-15 19:31:00 Test Item Value Reference Range Interpretation Comments Chloride Lvl (test code = Chloride Lvl) 105 95-109 [facility]2018-09-15 19:31:00 Test Item Value Reference Range Interpretation Comments Sodium Lvl (test code = Sodium Lvl) 141 135-145 [facility]2018-09-15 19:31:00 Test Item Value Reference Range Interpretation Comments Potassium Lvl (test code = Potassium 4.3 3.5-5.1 Lvl) [facility]2018-09-15 19:31:00 Test Item Value Reference Range Interpretation Comments CO2 (test code = CO2) 27 24-32 [facility]2018-09-15 19:31:00 Test Item Value Reference Range Interpretation Comments Creatinine Lvl (test code = Creatinine 1.09 0.50-1.40 Lvl) [facility]2018-09-15 19:31:00 Test Item Value Reference Range Interpretation Comments Glucose Lvl (test code = Glucose Lvl) 134 70-99 [facility]2018-09-15 19:31:00 Test Item Value Reference Range Interpretation Comments BUN (test code = BUN) 19 7-22 [place] [id number] 19:31:00 Test Item Value Reference Range Interpretation Comments AST (test code = AST) 40 See_Comment [Auto mated message] The system which ge nerated this result transmit didi reference range : <=37. The reference range was not used to interpr et this result as james l/abnormal. [facility]2018-09-15 19:31:00 Test Item Value Reference Range Interpretation Comments Albumin Lvl (test code = Albumin Lvl) 2.8 3.5-5.0 [facility]2018-09-15 19:31:00 Test Item Value Reference Range Interpretation Comments Total Protein (test code = Total 6.4 6.4-8.4 Protein) [place] [id number] 19:31:00 Test Item Value Reference Range Interpretation Comments ALT (test code = ALT) 47 See_Comment [Auto mated message] The system which ge nerated this result transmit didi reference range : <=65. The reference range was not used to interpr et this result as james l/abnormal. [facility]2018-09-15 19:31:00 Test Item Value Reference Range Interpretation Comments Alk Phos (test code = Alk Phos) 118 39-136 [employer] [id number] 19:31:00 Test Item Value Reference Range Interpretation Comments Bili Total (test code = Bili Total) 1.1 0.2-1.3 [employer]vbhwowRTNHSWRXMN7141-40-27 19:31:00 Test Item Value Reference Range Interpretation Comments PTT (test code = PTT) 37.6 s 22.9-35.8 [employer] GALBLGH7629-08-70 19:31:00 Test Item Value Reference Range Interpretation Comments ABO/Rh (test code = ABO/Rh) O POS [employer] [id number] 19:31:00 Test Item Value Reference Range Interpretation Comments Antibody Scrn (test Negative (07/21/18 2:31 code = Antibody Scrn) PM) [facility] DarctfdTCZWVCHTXB2829-43-23 19:31:00 Test Item Value Reference Range Interpretation Comments INR (test code = INR) 1.03 1 0.85-1.17 [employer] [id number] 19:31:00 Test Item Value Reference Range Interpretation Comments Troponin-I (test code no gt See_Comment [Auto mated message] The = Troponin-I) system which g enerated this result transmit didi reference range : <=0.40. The reference r katie was not used to interpr et this result as james l/abnormal. [employer]2018-09-15 19:31:00 Test Item Value Reference Range Interpretation Comments Total CK (test code = Total CK) 107 12-191 [facility]2018-09-15 19:31:00 Test Item Value Reference Range Interpretation Comments Lipase Lvl (test code = Lipase Lvl) 320 73-393 [facility]2018-09-15 19:31:00 Test Item Value Reference Range Interpretation Comments Phosphorus (test code = Phosphorus) 3.4 2.5-4.5 [facility]2018-09-15 19:31:00 Test Item Value Reference Range Interpretation Comments Magnesium Lvl (test code = Magnesium 1.3 1.8-2.4 Lvl) [facility]2018-09-15 19:31:00 Test Item Value Reference Range Interpretation Comments A/G Ratio (test code = A/G Ratio) 0.8 1 0.7-1.6 [facility]2018-09-15 19:31:00 Test Item Value Reference Range Interpretation Comments Globulin (test code = Globulin) 3.6 2.7-4.2 [facility]2018-09-15 19:31:00 Test Item Value Reference Range Interpretation Comments AGAP (test code = AGAP) 13.3 10.0-20.0 [facility]2018-09-15 19:31:00 Test Item Value Reference Range Interpretation Comments B/C Ratio (test code = B/C Ratio) 17 1 6-25 [facility]2018-09-15 19:31:00 Test Item Value Reference Range Interpretation Comments eGFR (test code = eGFR) 69 [facility]WtmqyowEGFLCZEBYF2116-86-00 19:31:00 Test Item Value Reference Range Interpretation Comments PT (test code = PT) 13.5 s 12.0-14.7 [facility]2018-09-15 19:31:00 Test Item Value Reference Range Interpretation Comments Calcium Lvl (test code = Calcium Lvl) 8.8 8.5-10.5 [facility]2018-09-15 19:31:00 Test Item Value Reference Range Interpretation Comments Chloride Lvl (test code = Chloride Lvl) 105 95-109 [facility]2018-09-15 19:31:00 Test Item Value Reference Range Interpretation Comments Sodium Lvl (test code = Sodium Lvl) 141 135-145 [facility]2018-09-15 19:31:00 Test Item Value Reference Range Interpretation Comments Potassium Lvl (test code = Potassium 4.3 3.5-5.1 Lvl) [facility]2018-09-15 19:31:00 Test Item Value Reference Range Interpretation Comments CO2 (test code = CO2) 27 24-32 [facility]2018-09-15 19:31:00 Test Item Value Reference Range Interpretation Comments Creatinine Lvl (test code = Creatinine 1.09 0.50-1.40 Lvl) [facility]2018-09-15 19:31:00 Test Item Value Reference Range Interpretation Comments Glucose Lvl (test code = Glucose Lvl) 134 70-99 [place] 110008-09-15 19:31:00 Test Item Value Reference Range Interpretation Comments BUN (test code = BUN) 19 7-22 [facility]2018-09-15 19:31:00 Test Item Value Reference Range Interpretation Comments AST (test code = AST) 40 See_Comment [Auto mated message] The system which ge nerated this result transmit didi reference range : <=37. The reference range was not used to interpr et this result as james l/abnormal. [place] 110008-09-15 19:31:00 Test Item Value Reference Range Interpretation Comments Albumin Lvl (test code = Albumin Lvl) 2.8 3.5-5.0 [facility] HospitalYjmviojOXKSKOUPMK7299-79-70 19:31:00 Test Item Value Reference Range Interpretation Comments WBC (test code = WBC) 5.8 3.7-10.4 [facility]2018-09-15 19:31:00 Test Item Value Reference Range Interpretation Comments Total Protein (test code = Total 6.4 6.4-8.4 Protein) [facility]2018-09-15 19:31:00 Test Item Value Reference Range Interpretation Comments ALT (test code = ALT) 47 See_Comment [Auto mated message] The system which ge nerated this result transmit didi reference range : <=65. The reference range was not used to interpr et this result as james l/abnormal. [facility]2018-09-15 19:31:00 Test Item Value Reference Range Interpretation Comments Alk Phos (test code = Alk Phos) 118 39-136 [facility]2018-09-15 19:31:00 Test Item Value Reference Range Interpretation Comments Bili Total (test code = Bili Total) 1.1 0.2-1.3 [place] 887978-09-15 19:31:00 Test Item Value Reference Range Interpretation Comments PTT (test code = PTT) 37.6 s 22.9-35.8 [place] 887978-09-15 19:31:00 Test Item Value Reference Range Interpretation Comments INR (test code = INR) 1.03 1 0.85-1.17 [facility] HospitalQyruswfYOBZEQOQSH0107-40-36 19:31:00 Test Item Value Reference Range Interpretation Comments PT (test code = PT) 13.5 s 12.0-14.7 [facility] HospitalHgmqfhbZQMQBZJEDR6425-17-39 19:31:00 Test Item Value Reference Range Interpretation Comments WBC (test code = WBC) 5.8 3.7-10.4 [facility] HospitalBugpicuUWGVGIMIDW6943-38-69 19:31:00 Test Item Value Reference Range Interpretation Comments MCH (test code = MCH) 32.1 pg 27.0-31.0 [facility] HospitalMsoiqmyAUIXFZQMMR0806-12-20 19:31:00 Test Item Value Reference Range Interpretation Comments MCHC (test code = MCHC) 34.2 32.0-36.0 [facility] HospitalPcimqceJFGKQXFSXV1156-11-08 19:31:00 Test Item Value Reference Range Interpretation Comments MCH (test code = MCH) 32.1 pg 27.0-31.0 [facility] HospitalPaxeawrHOPVKVXNCS9774-33-83 19:31:00 Test Item Value Reference Range Interpretation Comments Hgb (test code = Hgb) 8.0 14.0-18.0 [facility] HospitalKgllnylMDMGEBNGZY8629-21-74 19:31:00 Test Item Value Reference Range Interpretation Comments Hct (test code = Hct) 23.3 42.0-54.0 [facility] HospitalDlvcruqURVJHTQVNP7678-44-92 19:31:00 Test Item Value Reference Range Interpretation Comments MCV (test code = MCV) 93.7 80.0-94.0 [facility] HospitalYzvwatcVWTPKTAQPM9121-35-61 19:31:00 Test Item Value Reference Range Interpretation Comments RBC (test code = RBC) 2.49 4.70-6.10 [facility] HospitalQutylxqAKZLOOZQFB2850-75-71 19:31:00 Test Item Value Reference Range Interpretation Comments Platelet (test code = Platelet) 160 133-450 [facility] HospitalQvlsiydJVBAPLVRJQ6028-29-48 19:31:00 Test Item Value Reference Range Interpretation Comments MPV (test code = MPV) 7.7 7.4-10.4 [facility] HospitalAffrytxDTVUQVNOOV3009-44-55 19:31:00 Test Item Value Reference Range Interpretation Comments RDW (test code = RDW) 14.5 11.5-14.5 [facility] HospitalIsaryizWCZHWIICVP6805-74-57 19:31:00 Test Item Value Reference Range Interpretation Comments Basophils # (test code 0.1 See_Comment [Aut omated message] The = Basophils #) system which generated this result tra nsmitted reference range : <=0.2. The reference r katie was not used to int erpret this result as normal/abnormal . [facility] HospitalImsggpkTKMDFXVTAL8164-58-02 19:31:00 Test Item Value Reference Range Interpretation Comments Eosinophils # (test code 0.2 See_Comment [A utomated message] The = Eosinophils #) system whic h generated this result tra nsmitted reference range : <=0.5. The reference r katie was not used to int erpret this result as normal/abnormal . [facility] HospitalZgtawsmFUESAXQAAF8303-22-38 19:31:00 Test Item Value Reference Range Interpretation Comments Segs (test code = Segs) 70.2 45.0-75.0 [facility] HospitalWdjsagrTLEWQTLZYF6568-52-94 19:31:00 Test Item Value Reference Range Interpretation Comments MCHC (test code = MCHC) 34.2 32.0-36.0 [facility] HospitalSriyelyHFIMDQMFED1012-33-44 19:31:00 Test Item Value Reference Range Interpretation Comments Neutrophils # (test code = Neutrophils 4.1 1.5-8.1 #) [facility] HospitalWrkxmghIQXAPVKONN9677-67-89 19:31:00 Test Item Value Reference Range Interpretation Comments Lymphocytes (test code = Lymphocytes) 12.6 20.0-40.0 [facility] HospitalPcnjsnwIWRBTBTYPH1185-14-95 19:31:00 Test Item Value Reference Range Interpretation Comments Monocytes (test code = Monocytes) 12.7 2.0-12.0 [facility] HospitalFvqkwitQTXUAFRERT9557-76-66 19:31:00 Test Item Value Reference Range Interpretation Comments Eosinophils (test code = 3.6 See_Comment [A utomated message] The Eosinophils) system which ge nerated this result tra nsmitted reference range : <=4.0. The reference r katie was not used to int erpret this result as normal/abnormal . [facility] HospitalLupursoWXJQAPDHLL0687-33-79 19:31:00 Test Item Value Reference Range Interpretation Comments Monocytes # (test code 0.7 See_Comment [Aut omated message] The = Monocytes #) system which generated this result tra nsmitted reference range : <=0.8. The reference r katie was not used to int erpret this result as normal/abnormal . [facility] HospitalTxnqkmjYYWFKMTDPS4645-00-63 19:31:00 Test Item Value Reference Range Interpretation Comments Lymphocytes # (test code = Lymphocytes 0.7 1.0-5.5 #) [facility] HospitalEffafkuKLRSTQCLXY6375-48-80 19:31:00 Test Item Value Reference Range Interpretation Comments Basophils (test code = 0.9 See_Comment [Aut omated message] The Basophils) system which ge nerated this result tra nsmitted reference range : <=1.0. The reference r katie was not used to int erpret this result as normal/abnormal . [facility] HospitalAucbvdySBJIOYGPZH3385-95-54 19:31:00 Test Item Value Reference Range Interpretation Comments Hgb (test code = Hgb) 8.0 14.0-18.0 [facility] HospitalMvdsalwCNQSXPBLMY4537-47-61 19:31:00 Test Item Value Reference Range Interpretation Comments Hct (test code = Hct) 23.3 42.0-54.0 [facility] HospitalUkunkrbDMGZWIYWKU8362-43-21 19:31:00 Test Item Value Reference Range Interpretation Comments MCV (test code = MCV) 93.7 80.0-94.0 [facility] HospitalIbfzrmpLNRXYMPCLX2746-29-22 19:31:00 Test Item Value Reference Range Interpretation Comments RBC (test code = RBC) 2.49 4.70-6.10 [facility] HospitalBofqwkmNRHBRMUZKL1993-45-42 19:31:00 Test Item Value Reference Range Interpretation Comments Platelet (test code = Platelet) 160 133-450 [facility] HospitalFygxyekKVVYULZKXX8424-06-94 19:31:00 Test Item Value Reference Range Interpretation Comments MPV (test code = MPV) 7.7 7.4-10.4 [facility] HospitalGwkslcqVXFRLTINSU3610-23-05 19:31:00 Test Item Value Reference Range Interpretation Comments RDW (test code = RDW) 14.5 11.5-14.5 [facility] HospitalUytcgteANCMPXUUHF4576-48-11 19:31:00 Test Item Value Reference Range Interpretation Comments Basophils # (test code 0.1 See_Comment [Aut omated message] The = Basophils #) system which generated this result tra nsmitted reference range : <=0.2. The reference r katie was not used to int erpret this result as normal/abnormal . [facility] HospitalVkkxmnkZRKMDLCLPH6454-31-30 19:31:00 Test Item Value Reference Range Interpretation Comments Eosinophils # (test code 0.2 See_Comment [A utomated message] The = Eosinophils #) system whic h generated this result tra nsmitted reference range : <=0.5. The reference r katie was not used to int erpret this result as normal/abnormal . [facility] HospitalKkbiyrcBBPPPRRULT4066-94-11 19:31:00 Test Item Value Reference Range Interpretation Comments Segs (test code = Segs) 70.2 45.0-75.0 [facility] HospitalSlpkhfmPYJIYBAWQD8072-49-71 19:31:00 Test Item Value Reference Range Interpretation Comments Neutrophils # (test code = Neutrophils 4.1 1.5-8.1 #) [facility] HospitalBchtfhbLFNCQTDFEK0224-67-38 19:31:00 Test Item Value Reference Range Interpretation Comments Lymphocytes (test code = Lymphocytes) 12.6 20.0-40.0 [facility] HospitalPuszqzhASZHPQMDUF0175-53-35 19:31:00 Test Item Value Reference Range Interpretation Comments Monocytes (test code = Monocytes) 12.7 2.0-12.0 [facility] HospitalXxfzvkkRQLVWLTFWE0206-21-58 19:31:00 Test Item Value Reference Range Interpretation Comments Eosinophils (test code = 3.6 See_Comment [A utomated message] The Eosinophils) system which ge nerated this result tra nsmitted reference range : <=4.0. The reference r katie was not used to int erpret this result as normal/abnormal . [facility] HospitalVsktlvhRZJXCPBMID5407-91-58 19:31:00 Test Item Value Reference Range Interpretation Comments Monocytes # (test code 0.7 See_Comment [Aut omated message] The = Monocytes #) system which generated this result tra nsmitted reference range : <=0.8. The reference r katie was not used to int erpret this result as normal/abnormal . [facility] HospitalPkqgrrnGCMHYXRIMA3479-02-80 19:31:00 Test Item Value Reference Range Interpretation Comments Lymphocytes # (test code = Lymphocytes 0.7 1.0-5.5 #) [facility] HospitalTuacgcnPJOEBTLDOT1736-34-20 19:31:00 Test Item Value Reference Range Interpretation Comments Basophils (test code = 0.9 See_Comment [Aut omated message] The Basophils) system which ge nerated this result tra nsmitted reference range : <=1.0. The reference r katie was not used to int erpret this result as normal/abnormal . [employer] [facility] MCKWEPO0316-80-04 19:31:00 Test Item Value Reference Range Interpretation Comments ABO/Rh (test code = ABO/Rh) O POS [facility] RAHGKVX7516-46-62 19:31:00 Test Item Value Reference Range Interpretation Comments Antibody Scrn (test Negative (07/21/18 2:31 code = Antibody Scrn) PM) [facility] IPTFONX9658-89-72 19:31:00 Test Item Value Reference Range Interpretation Comments Troponin-I (test code no gt See_Comment [Auto mated message] The = Troponin-I) system which g enerated this result transmit didi reference range : <=0.40. The reference r katie was not used to interpr et this result as jmaes l/abnormal. [employer] QMBHPDF1570-47-96 19:31:00 Test Item Value Reference Range Interpretation Comments Total CK (test code = Total CK) 107 12-191 [facility] [employer] TGPUE6217-23-80 19:31:00 Test Item Value Reference Range Interpretation Comments Lipase Lvl (test code = Lipase Lvl) 320 73-393 [facility] [employer] SGTWQ1092-75-92 19:31:00 Test Item Value Reference Range Interpretation Comments Phosphorus (test code = Phosphorus) 3.4 2.5-4.5 [facility] [employer] [id number] 19:31:00 Test Item Value Reference Range Interpretation Comments Magnesium Lvl (test code = Magnesium 1.3 1.8-2.4 Lvl) [facility] [employer] XISCE8762-05-58 19:31:00 Test Item Value Reference Range Interpretation Comments A/G Ratio (test code = A/G Ratio) 0.8 1 0.7-1.6 [facility] [employer]2018-09-15 19:31:00 Test Item Value Reference Range Interpretation Comments Globulin (test code = Globulin) 3.6 2.7-4.2 [facility] [employer]2018-09-15 19:31:00 Test Item Value Reference Range Interpretation Comments AGAP (test code = AGAP) 13.3 10.0-20.0 [facility]2018-09-15 19:31:00 Test Item Value Reference Range Interpretation Comments B/C Ratio (test code = B/C Ratio) 17 1 6-25 [facility]2018-09-15 19:31:00 Test Item Value Reference Range Interpretation Comments eGFR (test code = eGFR) 69 [facility]2018-09-15 19:31:00 Test Item Value Reference Range Interpretation Comments Calcium Lvl (test code = Calcium Lvl) 8.8 8.5-10.5 [place] 110008-09-15 19:31:00 Test Item Value Reference Range Interpretation Comments Chloride Lvl (test code = Chloride Lvl) 105 95-109 [place] 110008-09-15 19:31:00 Test Item Value Reference Range Interpretation Comments Sodium Lvl (test code = Sodium Lvl) 141 135-145 [facility]2018-09-15 19:31:00 Test Item Value Reference Range Interpretation Comments Potassium Lvl (test code = Potassium 4.3 3.5-5.1 Lvl) [facility]2018-09-15 19:31:00 Test Item Value Reference Range Interpretation Comments CO2 (test code = CO2) 27 24-32 [facility]2018-09-15 19:31:00 Test Item Value Reference Range Interpretation Comments Creatinine Lvl (test code = Creatinine 1.09 0.50-1.40 Lvl) [facility]2018-09-15 19:31:00 Test Item Value Reference Range Interpretation Comments Glucose Lvl (test code = Glucose Lvl) 134 70-99 [facility]2018-09-15 19:31:00 Test Item Value Reference Range Interpretation Comments BUN (test code = BUN) 19 7-22 [place] 110008-09-15 19:31:00 Test Item Value Reference Range Interpretation Comments AST (test code = AST) 40 See_Comment [Auto mated message] The system which ge nerated this result transmit didi reference range : <=37. The reference range was not used to interpr et this result as james l/abnormal. [place] 110008-09-15 19:31:00 Test Item Value Reference Range Interpretation Comments Albumin Lvl (test code = Albumin Lvl) 2.8 3.5-5.0 [facility]2018-09-15 19:31:00 Test Item Value Reference Range Interpretation Comments Total Protein (test code = Total 6.4 6.4-8.4 Protein) [facility]2018-09-15 19:31:00 Test Item Value Reference Range Interpretation Comments ALT (test code = ALT) 47 See_Comment [Auto mated message] The system which ge nerated this result transmit didi reference range : <=65. The reference range was not used to interpr et this result as james l/abnormal. [facility]2018-09-15 19:31:00 Test Item Value Reference Range Interpretation Comments Alk Phos (test code = Alk Phos) 118 39-136 [facility]2018-09-15 19:31:00 Test Item Value Reference Range Interpretation Comments Bili Total (test code = Bili Total) 1.1 0.2-1.3 [facility] HospitalPgfedypCEIKGAXXDC3752-50-64 19:31:00 Test Item Value Reference Range Interpretation Comments PTT (test code = PTT) 37.6 s 22.9-35.8 [facility] HospitalUeemgeyFRUOERBOIA4335-47-90 19:31:00 Test Item Value Reference Range Interpretation Comments INR (test code = INR) 1.03 1 0.85-1.17 [facility] HospitalSxfnnvwZIDWGTIYNF3735-13-58 19:31:00 Test Item Value Reference Range Interpretation Comments PT (test code = PT) 13.5 s 12.0-14.7 [facility] HospitalShnomukESTOBGMRDC5303-54-16 19:31:00 Test Item Value Reference Range Interpretation Comments WBC (test code = WBC) 5.8 3.7-10.4 [facility] HospitalZbpazxbDAXRIOHIUU6876-94-18 19:31:00 Test Item Value Reference Range Interpretation Comments MCH (test code = MCH) 32.1 pg 27.0-31.0 [facility] HospitalCaapomiGWSNJFIBBX1079-70-68 19:31:00 Test Item Value Reference Range Interpretation Comments MCHC (test code = MCHC) 34.2 32.0-36.0 [facility] HospitalKiquogqCFYFIAZRWU6578-22-63 19:31:00 Test Item Value Reference Range Interpretation Comments Hgb (test code = Hgb) 8.0 14.0-18.0 [facility] HospitalEqlynatVUGERMQXQB9150-67-48 19:31:00 Test Item Value Reference Range Interpretation Comments Hct (test code = Hct) 23.3 42.0-54.0 [facility] HospitalOgtkhheGKNPJINPQV7527-32-89 19:31:00 Test Item Value Reference Range Interpretation Comments MCV (test code = MCV) 93.7 80.0-94.0 [facility] HospitalKqnpkdtUBZJJCUFEQ2700-31-03 19:31:00 Test Item Value Reference Range Interpretation Comments RBC (test code = RBC) 2.49 4.70-6.10 [facility] HospitalLowgegfHEVKMAJCGG4701-77-61 19:31:00 Test Item Value Reference Range Interpretation Comments Platelet (test code = Platelet) 160 133-450 [facility] HospitalYcgoozmMYXGRUUBXP4558-33-53 19:31:00 Test Item Value Reference Range Interpretation Comments MPV (test code = MPV) 7.7 7.4-10.4 [facility] HospitalGyemcwrEDHIEBCKTI1472-05-23 19:31:00 Test Item Value Reference Range Interpretation Comments RDW (test code = RDW) 14.5 11.5-14.5 [facility] HospitalLpgctjuDKPQBGCLLE7465-08-56 19:31:00 Test Item Value Reference Range Interpretation Comments Basophils # (test code 0.1 See_Comment [Aut omated message] The = Basophils #) system which generated this result tra nsmitted reference range : <=0.2. The reference r katie was not used to int erpret this result as normal/abnormal . [facility] HospitalNmyrufjSNUYHRKIIW3326-68-98 19:31:00 Test Item Value Reference Range Interpretation Comments Eosinophils # (test code 0.2 See_Comment [A utomated message] The = Eosinophils #) system whic h generated this result tra nsmitted reference range : <=0.5. The reference r katie was not used to int erpret this result as normal/abnormal . [facility] HospitalSngduruNAVKMBSTIA6826-87-10 19:31:00 Test Item Value Reference Range Interpretation Comments Segs (test code = Segs) 70.2 45.0-75.0 [facility] HospitalOuxwpfiJRSWNJHCJE9703-40-03 19:31:00 Test Item Value Reference Range Interpretation Comments Neutrophils # (test code = Neutrophils 4.1 1.5-8.1 #) [facility] HospitalLyitjprDBLJUXWDYO0513-38-31 19:31:00 Test Item Value Reference Range Interpretation Comments Lymphocytes (test code = Lymphocytes) 12.6 20.0-40.0 [facility] HospitalYlphyabETRLVAXOYH3515-26-32 19:31:00 Test Item Value Reference Range Interpretation Comments Monocytes (test code = Monocytes) 12.7 2.0-12.0 [facility] HospitalGkqzuumRNMOSMZDQC7958-39-32 19:31:00 Test Item Value Reference Range Interpretation Comments Eosinophils (test code = 3.6 See_Comment [A utomated message] The Eosinophils) system which ge nerated this result tra nsmitted reference range : <=4.0. The reference r katie was not used to int erpret this result as normal/abnormal . [facility] HospitalRwuxmljVQECELYMSK2578-48-12 19:31:00 Test Item Value Reference Range Interpretation Comments Monocytes # (test code 0.7 See_Comment [Aut omated message] The = Monocytes #) system which generated this result tra nsmitted reference range : <=0.8. The reference r katie was not used to int erpret this result as normal/abnormal . [facility] HospitalLhqbywtPVLKVKKNRB6422-85-47 19:31:00 Test Item Value Reference Range Interpretation Comments Lymphocytes # (test code = Lymphocytes 0.7 1.0-5.5 #) [facility] HospitalWzwdletWOLKYAYYIB9754-19-48 19:31:00 Test Item Value Reference Range Interpretation Comments Basophils (test code = 0.9 See_Comment [Aut omated message] The Basophils) system which ge nerated this result tra nsmitted reference range : <=1.0. The reference r katie was not used to int erpret this result as normal/abnormal . [facility]2018-09-13 05:40:00 Test Item Value Reference Range Interpretation Comments Calcium Lvl (test code = Calcium Lvl) 8.3 8.5-10.5 [facility]2018-09-13 05:40:00 Test Item Value Reference Range Interpretation Comments AGAP (test code = AGAP) 13.6 10.0-20.0 [facility]2018-09-13 05:40:00 Test Item Value Reference Range Interpretation Comments eGFR (test code = eGFR) 67 [facility]2018-09-13 05:40:00 Test Item Value Reference Range Interpretation Comments CO2 (test code = CO2) 24 24-32 [facility]2018-09-13 05:40:00 Test Item Value Reference Range Interpretation Comments Chloride Lvl (test code = Chloride Lvl) 109 95-109 [facility]2018-09-13 05:40:00 Test Item Value Reference Range Interpretation Comments Potassium Lvl (test code = Potassium 4.6 3.5-5.1 Lvl) [facility]2018-09-13 05:40:00 Test Item Value Reference Range Interpretation Comments Sodium Lvl (test code = Sodium Lvl) 142 135-145 [facility]2018-09-13 05:40:00 Test Item Value Reference Range Interpretation Comments Creatinine Lvl (test code = Creatinine 1.12 0.50-1.40 Lvl) [facility]2018-09-13 05:40:00 Test Item Value Reference Range Interpretation Comments BUN (test code = BUN) 32 7-22 [facility]2018-09-13 05:40:00 Test Item Value Reference Range Interpretation Comments Glucose Lvl (test code = Glucose Lvl) 235 70-99 [facility]GeboltiWSZBACJMMQ9902-03-59 05:40:00 Test Item Value Reference Range Interpretation Comments Lymphocytes (test code = Lymphocytes) 16.2 20.0-40.0 [facility] HospitalXaqaqcgMGYQDQCVOU6735-56-46 05:40:00 Test Item Value Reference Range Interpretation Comments Segs (test code = Segs) 68.4 45.0-75.0 [facility] HospitalIepxuzvLOELYPBWWC0003-03-17 05:40:00 Test Item Value Reference Range Interpretation Comments Eosinophils (test code = 3.9 See_Comment [A utomated message] The Eosinophils) system which ge nerated this result tra nsmitted reference range : <=4.0. The reference r katie was not used to int erpret this result as normal/abnormal . [facility] HospitalPlukdekRFLGYQLABA6270-88-90 05:40:00 Test Item Value Reference Range Interpretation Comments Monocytes (test code = Monocytes) 10.6 2.0-12.0 [facility] HospitalBydbgcsJCVZMMPMOO6458-14-77 05:40:00 Test Item Value Reference Range Interpretation Comments Lymphocytes # (test code = Lymphocytes 0.6 1.0-5.5 #) [facility] HospitalWilxsbqYMHOSCQQLN4304-06-87 05:40:00 Test Item Value Reference Range Interpretation Comments Basophils (test code = 0.9 See_Comment [Aut omated message] The Basophils) system which ge nerated this result tra nsmitted reference range : <=1.0. The reference r katie was not used to int erpret this result as normal/abnormal . [facility] HospitalImtwsygQHZXOARWWM2315-09-72 05:40:00 Test Item Value Reference Range Interpretation Comments Neutrophils # (test code = Neutrophils 2.5 1.5-8.1 #) [facility] HospitalRfveyeqVTJZBTVKLG9360-47-10 05:40:00 Test Item Value Reference Range Interpretation Comments Monocytes # (test code 0.4 See_Comment [Aut omated message] The = Monocytes #) system which generated this result tra nsmitted reference range : <=0.8. The reference r katie was not used to int erpret this result as normal/abnormal . [facility] HospitalVtdsndyGQGMQJFOFP9398-90-58 05:40:00 Test Item Value Reference Range Interpretation Comments Eosinophils # (test code 0.1 See_Comment [A utomated message] The = Eosinophils #) system whic h generated this result tra nsmitted reference range : <=0.5. The reference r katie was not used to int erpret this result as normal/abnormal . [facility] HospitalEdyijhmZVZBZNJZOA4033-23-16 05:40:00 Test Item Value Reference Range Interpretation Comments MCH (test code = MCH) 31.7 pg 27.0-31.0 [facility] HospitalRyjtjttPKWLWJWGCT5949-11-33 05:40:00 Test Item Value Reference Range Interpretation Comments MCHC (test code = MCHC) 34.3 32.0-36.0 [facility] HospitalJqrccwvLZCAQDAYQF6383-13-76 05:40:00 Test Item Value Reference Range Interpretation Comments RDW (test code = RDW) 13.8 11.5-14.5 [facility] HospitalLfktwfbDKPRTYXTAQ9210-35-92 05:40:00 Test Item Value Reference Range Interpretation Comments MCV (test code = MCV) 92.3 80.0-94.0 [facility] HospitalAavtxgyCYCRDDHKWB5865-43-59 05:40:00 Test Item Value Reference Range Interpretation Comments Hct (test code = Hct) 19.8 42.0-54.0 [facility] HospitalNhlvthqZYBCKXMQCM8827-85-02 05:40:00 Test Item Value Reference Range Interpretation Comments Hgb (test code = Hgb) 6.8 14.0-18.0 [facility] HospitalKtvnwdrUCGERNUMKW3059-68-76 05:40:00 Test Item Value Reference Range Interpretation Comments Platelet (test code = Platelet) 113 133-450 [facility] HospitalSqtuddfHNVMBAMSOD1108-26-22 05:40:00 Test Item Value Reference Range Interpretation Comments MPV (test code = MPV) 9.1 7.4-10.4 [facility] HospitalOwvhlqbRBGWLBXHCS5871-67-42 05:40:00 Test Item Value Reference Range Interpretation Comments WBC (test code = WBC) 3.7 3.7-10.4 [facility] HospitalOiabnwsOMDGMRRYCC8662-71-18 05:40:00 Test Item Value Reference Range Interpretation Comments RBC (test code = RBC) 2.15 4.70-6.10 [facility]2018-09-13 05:40:00 Test Item Value Reference Range Interpretation Comments Calcium Lvl (test code = Calcium Lvl) 8.3 8.5-10.5 [facility]2018-09-13 05:40:00 Test Item Value Reference Range Interpretation Comments AGAP (test code = AGAP) 13.6 10.0-20.0 [facility]2018-09-13 05:40:00 Test Item Value Reference Range Interpretation Comments eGFR (test code = eGFR) 67 [facility]2018-09-13 05:40:00 Test Item Value Reference Range Interpretation Comments CO2 (test code = CO2) 24 24-32 [facility]2018-09-13 05:40:00 Test Item Value Reference Range Interpretation Comments Chloride Lvl (test code = Chloride Lvl) 109 95-109 [facility]2018-09-13 05:40:00 Test Item Value Reference Range Interpretation Comments Potassium Lvl (test code = Potassium 4.6 3.5-5.1 Lvl) [facility]2018-09-13 05:40:00 Test Item Value Reference Range Interpretation Comments Sodium Lvl (test code = Sodium Lvl) 142 135-145 [facility]2018-09-13 05:40:00 Test Item Value Reference Range Interpretation Comments Creatinine Lvl (test code = Creatinine 1.12 0.50-1.40 Lvl) [facility]2018-09-13 05:40:00 Test Item Value Reference Range Interpretation Comments BUN (test code = BUN) 32 7-22 [facility]2018-09-13 05:40:00 Test Item Value Reference Range Interpretation Comments Glucose Lvl (test code = Glucose Lvl) 235 70-99 [facility] HospitalZxafngaBQDPZOOTLK4211-31-99 05:40:00 Test Item Value Reference Range Interpretation Comments Lymphocytes (test code = Lymphocytes) 16.2 20.0-40.0 [facility] HospitalEtttxieUBEUTDPGQQ2695-32-10 05:40:00 Test Item Value Reference Range Interpretation Comments Segs (test code = Segs) 68.4 45.0-75.0 [facility] HospitalVpkexdgTRIQBPNZFB7395-82-84 05:40:00 Test Item Value Reference Range Interpretation Comments Eosinophils (test code = 3.9 See_Comment [A utomated message] The Eosinophils) system which ge nerated this result tra nsmitted reference range : <=4.0. The reference r katie was not used to int erpret this result as normal/abnormal . [facility] HospitalTugpodpZCPCJCNTEX3652-21-06 05:40:00 Test Item Value Reference Range Interpretation Comments Monocytes (test code = Monocytes) 10.6 2.0-12.0 [facility] HospitalDuamuxpROLAUUCGON7057-26-00 05:40:00 Test Item Value Reference Range Interpretation Comments Lymphocytes # (test code = Lymphocytes 0.6 1.0-5.5 #) [facility] HospitalLzqauyxXTVXVZKFSE2667-51-60 05:40:00 Test Item Value Reference Range Interpretation Comments Basophils (test code = 0.9 See_Comment [Aut omated message] The Basophils) system which ge nerated this result tra nsmitted reference range : <=1.0. The reference r katie was not used to int erpret this result as normal/abnormal . [facility] HospitalJzooobhUQGCOMOXEN1620-26-51 05:40:00 Test Item Value Reference Range Interpretation Comments Neutrophils # (test code = Neutrophils 2.5 1.5-8.1 #) [facility] HospitalAwkdwduQUBAKQGMKG0744-99-14 05:40:00 Test Item Value Reference Range Interpretation Comments Monocytes # (test code 0.4 See_Comment [Aut omated message] The = Monocytes #) system which generated this result tra nsmitted reference range : <=0.8. The reference r katie was not used to int erpret this result as normal/abnormal . [facility] HospitalGpnembyVDMMPDZPVX5666-53-85 05:40:00 Test Item Value Reference Range Interpretation Comments Eosinophils # (test code 0.1 See_Comment [A utomated message] The = Eosinophils #) system whic h generated this result tra nsmitted reference range : <=0.5. The reference r katie was not used to int erpret this result as normal/abnormal . [facility] HospitalDpvcjxeGOKPRQQFMF4756-13-33 05:40:00 Test Item Value Reference Range Interpretation Comments MCH (test code = MCH) 31.7 pg 27.0-31.0 [facility] HospitalOriddkcWOYHGAOKGN4408-10-76 05:40:00 Test Item Value Reference Range Interpretation Comments MCHC (test code = MCHC) 34.3 32.0-36.0 [facility] HospitalHzwlojvLKBHAOZCXR6979-38-10 05:40:00 Test Item Value Reference Range Interpretation Comments RDW (test code = RDW) 13.8 11.5-14.5 [facility] HospitalUgovzyyRPSMFRILIG9458-61-01 05:40:00 Test Item Value Reference Range Interpretation Comments MCV (test code = MCV) 92.3 80.0-94.0 [facility] HospitalAhkkvowMXRSZJTBBQ6969-38-53 05:40:00 Test Item Value Reference Range Interpretation Comments Hct (test code = Hct) 19.8 42.0-54.0 [facility] HospitalDzxolhfTSQZCVTSUL5074-10-19 05:40:00 Test Item Value Reference Range Interpretation Comments Hgb (test code = Hgb) 6.8 14.0-18.0 [facility] HospitalOwzfebaBNDVBACDTA9372-45-46 05:40:00 Test Item Value Reference Range Interpretation Comments Platelet (test code = Platelet) 113 133-450 [facility] HospitalEcpwjjlFUWFZMFTYO9681-07-91 05:40:00 Test Item Value Reference Range Interpretation Comments MPV (test code = MPV) 9.1 7.4-10.4 [facility] HospitalVwblkgcTWUQBBOSND1692-44-04 05:40:00 Test Item Value Reference Range Interpretation Comments WBC (test code = WBC) 3.7 3.7-10.4 [facility] HospitalEzmoutdOUBRXLZKWY8027-82-49 05:40:00 Test Item Value Reference Range Interpretation Comments RBC (test code = RBC) 2.15 4.70-6.10 [facility]2018-09-13 05:40:00 Test Item Value Reference Range Interpretation Comments Calcium Lvl (test code = Calcium Lvl) 8.3 8.5-10.5 [facility]2018-09-13 05:40:00 Test Item Value Reference Range Interpretation Comments AGAP (test code = AGAP) 13.6 10.0-20.0 [facility]2018-09-13 05:40:00 Test Item Value Reference Range Interpretation Comments eGFR (test code = eGFR) 67 [facility]2018-09-13 05:40:00 Test Item Value Reference Range Interpretation Comments CO2 (test code = CO2) 24 24-32 [facility]2018-09-13 05:40:00 Test Item Value Reference Range Interpretation Comments Chloride Lvl (test code = Chloride Lvl) 109 95-109 [facility]2018-09-13 05:40:00 Test Item Value Reference Range Interpretation Comments Potassium Lvl (test code = Potassium 4.6 3.5-5.1 Lvl) [facility]2018-09-13 05:40:00 Test Item Value Reference Range Interpretation Comments Sodium Lvl (test code = Sodium Lvl) 142 135-145 [facility]2018-09-13 05:40:00 Test Item Value Reference Range Interpretation Comments Creatinine Lvl (test code = Creatinine 1.12 0.50-1.40 Lvl) [facility]2018-09-13 05:40:00 Test Item Value Reference Range Interpretation Comments BUN (test code = BUN) 32 7-22 [facility]2018-09-13 05:40:00 Test Item Value Reference Range Interpretation Comments Glucose Lvl (test code = Glucose Lvl) 235 70-99 [facility] HospitalGbsdqxjZQFMQMPGOU3368-09-60 05:40:00 Test Item Value Reference Range Interpretation Comments Lymphocytes (test code = Lymphocytes) 16.2 20.0-40.0 [facility] HospitalWtsfvxiZZNNVVCQLZ4587-45-53 05:40:00 Test Item Value Reference Range Interpretation Comments Segs (test code = Segs) 68.4 45.0-75.0 [place] 887978-09-13 05:40:00 Test Item Value Reference Range Interpretation Comments Eosinophils (test code = 3.9 See_Comment [A utomated message] The Eosinophils) system which ge nerated this result tra nsmitted reference range : <=4.0. The reference r katie was not used to int erpret this result as normal/abnormal . [facility] HospitalHfcbuvrQRHQJUCVWY8542-93-94 05:40:00 Test Item Value Reference Range Interpretation Comments Monocytes (test code = Monocytes) 10.6 2.0-12.0 [facility] HospitalDvrjsmhEYFHJVIEQG4859-47-20 05:40:00 Test Item Value Reference Range Interpretation Comments Lymphocytes # (test code = Lymphocytes 0.6 1.0-5.5 #) [facility] HospitalUmdjezsEVMZVOQESL7477-28-48 05:40:00 Test Item Value Reference Range Interpretation Comments Basophils (test code = 0.9 See_Comment [Aut omated message] The Basophils) system which ge nerated this result tra nsmitted reference range : <=1.0. The reference r katie was not used to int erpret this result as normal/abnormal . [facility] HospitalJryzxarCHLUEWCYWL3543-31-34 05:40:00 Test Item Value Reference Range Interpretation Comments Neutrophils # (test code = Neutrophils 2.5 1.5-8.1 #) [facility] HospitalUifpchfTQBAMPZQJV5643-99-55 05:40:00 Test Item Value Reference Range Interpretation Comments Monocytes # (test code 0.4 See_Comment [Aut omated message] The = Monocytes #) system which generated this result tra nsmitted reference range : <=0.8. The reference r katie was not used to int erpret this result as normal/abnormal . [facility] HospitalEriykngENDIOEHSBY0461-59-12 05:40:00 Test Item Value Reference Range Interpretation Comments Eosinophils # (test code 0.1 See_Comment [A utomated message] The = Eosinophils #) system whic h generated this result tra nsmitted reference range : <=0.5. The reference r katie was not used to int erpret this result as normal/abnormal . [facility] HospitalLjmtrerRWKGLFZNRO1431-93-22 05:40:00 Test Item Value Reference Range Interpretation Comments MCH (test code = MCH) 31.7 pg 27.0-31.0 [facility] HospitalCosccuxHQGVYMOBBL6634-13-33 05:40:00 Test Item Value Reference Range Interpretation Comments MCHC (test code = MCHC) 34.3 32.0-36.0 [facility] HospitalOdjdmtgLKKWVCBBWT3067-90-96 05:40:00 Test Item Value Reference Range Interpretation Comments RDW (test code = RDW) 13.8 11.5-14.5 [facility] HospitalCffzfagOZYRVQFCGG0942-63-85 05:40:00 Test Item Value Reference Range Interpretation Comments MCV (test code = MCV) 92.3 80.0-94.0 [facility] HospitalMzapygoAFWDUCPCUV3783-40-60 05:40:00 Test Item Value Reference Range Interpretation Comments Hct (test code = Hct) 19.8 42.0-54.0 [facility] HospitalZnzrbokFMPEFPEJAT5251-09-40 05:40:00 Test Item Value Reference Range Interpretation Comments Hgb (test code = Hgb) 6.8 14.0-18.0 [facility] HospitalRzjrycnUTYKYQEAGN6151-49-19 05:40:00 Test Item Value Reference Range Interpretation Comments Platelet (test code = Platelet) 113 133-450 [facility] HospitalLhbtqleBXHNIBNECQ6822-58-18 05:40:00 Test Item Value Reference Range Interpretation Comments MPV (test code = MPV) 9.1 7.4-10.4 [facility] HospitalKtlpqosLPXVRHIDZJ9376-38-60 05:40:00 Test Item Value Reference Range Interpretation Comments WBC (test code = WBC) 3.7 3.7-10.4 [facility] HospitalEtqtbaeFYCDXRZRZJ6092-59-47 05:40:00 Test Item Value Reference Range Interpretation Comments RBC (test code = RBC) 2.15 4.70-6.10 [facility]2018-09-12 05:10:00 Test Item Value Reference Range Interpretation Comments eGFR (test code = eGFR) 44 [facility]2018-09-12 05:10:00 Test Item Value Reference Range Interpretation Comments Calcium Lvl (test code = Calcium Lvl) 7.7 8.5-10.5 [facility]2018-09-12 05:10:00 Test Item Value Reference Range Interpretation Comments CO2 (test code = CO2) 23 24-32 [facility]2018-09-12 05:10:00 Test Item Value Reference Range Interpretation Comments AGAP (test code = AGAP) 15.1 10.0-20.0 [facility]2018-09-12 05:10:00 Test Item Value Reference Range Interpretation Comments Chloride Lvl (test code = Chloride Lvl) 104 95-109 [facility]2018-09-12 05:10:00 Test Item Value Reference Range Interpretation Comments Potassium Lvl (test code = Potassium 4.1 3.5-5.1 Lvl) [facility]2018-09-12 05:10:00 Test Item Value Reference Range Interpretation Comments Creatinine Lvl (test code = Creatinine 1.59 0.50-1.40 Lvl) [facility]2018-09-12 05:10:00 Test Item Value Reference Range Interpretation Comments Sodium Lvl (test code = Sodium Lvl) 138 135-145 [facility]2018-09-12 05:10:00 Test Item Value Reference Range Interpretation Comments Glucose Lvl (test code = Glucose Lvl) 233 70-99 [facility]2018-09-12 05:10:00 Test Item Value Reference Range Interpretation Comments BUN (test code = BUN) 45 7-22 [facility] HospitalEmvkoosCRGIIUALNR3577-48-16 05:10:00 Test Item Value Reference Range Interpretation Comments Eosinophils (test code = 3.9 See_Comment [A utomated message] The Eosinophils) system which ge nerated this result tra nsmitted reference range : <=4.0. The reference r katie was not used to int erpret this result as normal/abnormal . [facility] HospitalMhuzttvUDNHNNTUMU1937-04-65 05:10:00 Test Item Value Reference Range Interpretation Comments Segs (test code = Segs) 69.8 45.0-75.0 [facility] HospitalIidsxtsKFCSDSVEUD2987-86-06 05:10:00 Test Item Value Reference Range Interpretation Comments Monocytes (test code = Monocytes) 9.9 2.0-12.0 [facility] HospitalSveyfqlJRXWMECFHB8931-03-18 05:10:00 Test Item Value Reference Range Interpretation Comments Lymphocytes (test code = Lymphocytes) 15.5 20.0-40.0 [facility] HospitalWjlntjiLIYOYVYBDG3651-58-12 05:10:00 Test Item Value Reference Range Interpretation Comments Neutrophils # (test code = Neutrophils 2.6 1.5-8.1 #) [facility] HospitalCkcsxyxYEZZHLGILQ8881-54-86 05:10:00 Test Item Value Reference Range Interpretation Comments Monocytes # (test code 0.4 See_Comment [Aut omated message] The = Monocytes #) system which generated this result tra nsmitted reference range : <=0.8. The reference r katie was not used to int erpret this result as normal/abnormal . [facility] HospitalTvjoylqSKULSKNUNC8625-69-65 05:10:00 Test Item Value Reference Range Interpretation Comments Lymphocytes # (test code = Lymphocytes 0.6 1.0-5.5 #) [facility] HospitalZyzsvgiLDOXEPOMFO6372-43-41 05:10:00 Test Item Value Reference Range Interpretation Comments Basophils (test code = 0.9 See_Comment [Aut omated message] The Basophils) system which ge nerated this result tra nsmitted reference range : <=1.0. The reference r katie was not used to int erpret this result as normal/abnormal . [facility] HospitalLykxdnkSSHSIVQIOM3190-89-17 05:10:00 Test Item Value Reference Range Interpretation Comments Eosinophils # (test code 0.1 See_Comment [A utomated message] The = Eosinophils #) system whic h generated this result tra nsmitted reference range : <=0.5. The reference r katie was not used to int erpret this result as normal/abnormal . [facility] HospitalMhsamkmXPCQCSNRDM2293-71-72 05:10:00 Test Item Value Reference Range Interpretation Comments MPV (test code = MPV) 9.3 7.4-10.4 [facility] HospitalHgwtizgYUKQXRFWNZ0941-36-59 05:10:00 Test Item Value Reference Range Interpretation Comments Platelet (test code = Platelet) 90 133-450 [facility] HospitalEpzqmpnYTOQBNOVXQ9834-95-50 05:10:00 Test Item Value Reference Range Interpretation Comments RDW (test code = RDW) 13.6 11.5-14.5 [facility] HospitalKtmdfypZHVGAVHDKI9350-85-82 05:10:00 Test Item Value Reference Range Interpretation Comments MCV (test code = MCV) 91.4 80.0-94.0 [facility] HospitalAiorjmuWPJAUWFGEC2201-27-86 05:10:00 Test Item Value Reference Range Interpretation Comments MCHC (test code = MCHC) 34.0 32.0-36.0 [facility] HospitalByhwjqcNZPOPIVLZD1191-23-17 05:10:00 Test Item Value Reference Range Interpretation Comments MCH (test code = MCH) 31.1 pg 27.0-31.0 [facility] HospitalKujoujgSQAUWSRYAL8831-41-92 05:10:00 Test Item Value Reference Range Interpretation Comments Hgb (test code = Hgb) 6.7 14.0-18.0 [facility] HospitalGgolxdrXVBDFMQGQQ2710-72-26 05:10:00 Test Item Value Reference Range Interpretation Comments Hct (test code = Hct) 19.6 42.0-54.0 [facility] HospitalGskaevrBPUEHQALIE3388-70-64 05:10:00 Test Item Value Reference Range Interpretation Comments WBC (test code = WBC) 3.7 3.7-10.4 [facility] HospitalFhtroqnBYVZSRWHTV9524-04-31 05:10:00 Test Item Value Reference Range Interpretation Comments RBC (test code = RBC) 2.14 4.70-6.10 [facility]2018-09-12 05:10:00 Test Item Value Reference Range Interpretation Comments eGFR (test code = eGFR) 44 [facility]2018-09-12 05:10:00 Test Item Value Reference Range Interpretation Comments Calcium Lvl (test code = Calcium Lvl) 7.7 8.5-10.5 [facility]2018-09-12 05:10:00 Test Item Value Reference Range Interpretation Comments CO2 (test code = CO2) 23 24-32 [facility]2018-09-12 05:10:00 Test Item Value Reference Range Interpretation Comments AGAP (test code = AGAP) 15.1 10.0-20.0 [facility]2018-09-12 05:10:00 Test Item Value Reference Range Interpretation Comments Chloride Lvl (test code = Chloride Lvl) 104 95-109 [facility]2018-09-12 05:10:00 Test Item Value Reference Range Interpretation Comments Potassium Lvl (test code = Potassium 4.1 3.5-5.1 Lvl) [facility]2018-09-12 05:10:00 Test Item Value Reference Range Interpretation Comments Creatinine Lvl (test code = Creatinine 1.59 0.50-1.40 Lvl) [facility]2018-09-12 05:10:00 Test Item Value Reference Range Interpretation Comments Sodium Lvl (test code = Sodium Lvl) 138 135-145 [facility]2018-09-12 05:10:00 Test Item Value Reference Range Interpretation Comments Glucose Lvl (test code = Glucose Lvl) 233 70-99 [facility]2018-09-12 05:10:00 Test Item Value Reference Range Interpretation Comments BUN (test code = BUN) 45 7-22 [facility] HospitalNaxpvzcYTGTYKDQOR6093-16-98 05:10:00 Test Item Value Reference Range Interpretation Comments Eosinophils (test code = 3.9 See_Comment [A utomated message] The Eosinophils) system which ge nerated this result tra nsmitted reference range : <=4.0. The reference r katie was not used to int erpret this result as normal/abnormal . [facility] HospitalOlzjnmsTAFCSCICEJ1866-45-74 05:10:00 Test Item Value Reference Range Interpretation Comments Segs (test code = Segs) 69.8 45.0-75.0 [facility] HospitalZblnrffCAKNPZSFMA4793-98-84 05:10:00 Test Item Value Reference Range Interpretation Comments Monocytes (test code = Monocytes) 9.9 2.0-12.0 [facility]XeqeahnRAQPABCROF4093-45-83 05:10:00 Test Item Value Reference Range Interpretation Comments Lymphocytes (test code = Lymphocytes) 15.5 20.0-40.0 [facility] HospitalGrcnejdNIVCIJGMUA3010-79-74 05:10:00 Test Item Value Reference Range Interpretation Comments Neutrophils # (test code = Neutrophils 2.6 1.5-8.1 #) [facility] HospitalPvnngskQICYUXUFZS6460-18-87 05:10:00 Test Item Value Reference Range Interpretation Comments Monocytes # (test code 0.4 See_Comment [Aut omated message] The = Monocytes #) system which generated this result tra nsmitted reference range : <=0.8. The reference r katie was not used to int erpret this result as normal/abnormal . [facility] HospitalItogxgvUCOSKDVJOH3555-90-41 05:10:00 Test Item Value Reference Range Interpretation Comments Lymphocytes # (test code = Lymphocytes 0.6 1.0-5.5 #) [facility] HospitalRdjaqwhLGOCWAXDJU1650-40-71 05:10:00 Test Item Value Reference Range Interpretation Comments Basophils (test code = 0.9 See_Comment [Aut omated message] The Basophils) system which ge nerated this result tra nsmitted reference range : <=1.0. The reference r katie was not used to int erpret this result as normal/abnormal . [facility] HospitalTpfzthgOTZQSHCFSN7692-98-06 05:10:00 Test Item Value Reference Range Interpretation Comments Eosinophils # (test code 0.1 See_Comment [A utomated message] The = Eosinophils #) system whic h generated this result tra nsmitted reference range : <=0.5. The reference r katie was not used to int erpret this result as normal/abnormal . [facility] HospitalKzpbtcbDCZOAREJSB7509-75-60 05:10:00 Test Item Value Reference Range Interpretation Comments MPV (test code = MPV) 9.3 7.4-10.4 [facility] HospitalCnwujglRNWSQYWKZU1534-02-74 05:10:00 Test Item Value Reference Range Interpretation Comments Platelet (test code = Platelet) 90 133-450 [facility] HospitalApbmflhRZWPCDXTXD3924-68-27 05:10:00 Test Item Value Reference Range Interpretation Comments RDW (test code = RDW) 13.6 11.5-14.5 [facility] HospitalUymjonbUWADMTQGTX6081-54-29 05:10:00 Test Item Value Reference Range Interpretation Comments MCV (test code = MCV) 91.4 80.0-94.0 [facility] HospitalNrahztsWRLBODAGOA7607-30-76 05:10:00 Test Item Value Reference Range Interpretation Comments MCHC (test code = MCHC) 34.0 32.0-36.0 [facility] HospitalOllfezsYXJSDNLJAP9452-87-98 05:10:00 Test Item Value Reference Range Interpretation Comments MCH (test code = MCH) 31.1 pg 27.0-31.0 [facility] HospitalVwiwzqvOGGXFFAPFT5807-51-46 05:10:00 Test Item Value Reference Range Interpretation Comments Hgb (test code = Hgb) 6.7 14.0-18.0 [facility] HospitalFhbqrfuOSLLZXSZML1476-73-44 05:10:00 Test Item Value Reference Range Interpretation Comments Hct (test code = Hct) 19.6 42.0-54.0 [facility] HospitalJbbhxiaCRDOJJFZJS8173-77-20 05:10:00 Test Item Value Reference Range Interpretation Comments WBC (test code = WBC) 3.7 3.7-10.4 [facility] HospitalAqbxgmxVCKPXKYPTU3063-33-47 05:10:00 Test Item Value Reference Range Interpretation Comments RBC (test code = RBC) 2.14 4.70-6.10 [facility]2018-09-12 05:10:00 Test Item Value Reference Range Interpretation Comments eGFR (test code = eGFR) 44 [facility]2018-09-12 05:10:00 Test Item Value Reference Range Interpretation Comments Calcium Lvl (test code = Calcium Lvl) 7.7 8.5-10.5 [facility]2018-09-12 05:10:00 Test Item Value Reference Range Interpretation Comments CO2 (test code = CO2) 23 24-32 [facility]2018-09-12 05:10:00 Test Item Value Reference Range Interpretation Comments AGAP (test code = AGAP) 15.1 10.0-20.0 [facility]2018-09-12 05:10:00 Test Item Value Reference Range Interpretation Comments Chloride Lvl (test code = Chloride Lvl) 104 95-109 [facility]2018-09-12 05:10:00 Test Item Value Reference Range Interpretation Comments Potassium Lvl (test code = Potassium 4.1 3.5-5.1 Lvl) [facility]2018-09-12 05:10:00 Test Item Value Reference Range Interpretation Comments Creatinine Lvl (test code = Creatinine 1.59 0.50-1.40 Lvl) [facility]2018-09-12 05:10:00 Test Item Value Reference Range Interpretation Comments Sodium Lvl (test code = Sodium Lvl) 138 135-145 [facility]2018-09-12 05:10:00 Test Item Value Reference Range Interpretation Comments Glucose Lvl (test code = Glucose Lvl) 233 70-99 [facility]2018-09-12 05:10:00 Test Item Value Reference Range Interpretation Comments BUN (test code = BUN) 45 7-22 [facility] HospitalNzdojeaQAYSDEQWYA7043-40-29 05:10:00 Test Item Value Reference Range Interpretation Comments Eosinophils (test code = 3.9 See_Comment [A utomated message] The Eosinophils) system which ge nerated this result tra nsmitted reference range : <=4.0. The reference r katie was not used to int erpret this result as normal/abnormal . [facility] HospitalDesuhhgXASWKALUXK2795-46-21 05:10:00 Test Item Value Reference Range Interpretation Comments Segs (test code = Segs) 69.8 45.0-75.0 [facility] HospitalPkuegxfPATYHQHAFI8218-01-43 05:10:00 Test Item Value Reference Range Interpretation Comments Monocytes (test code = Monocytes) 9.9 2.0-12.0 [facility] HospitalPgogelyRARBXVOIOR9121-72-87 05:10:00 Test Item Value Reference Range Interpretation Comments Lymphocytes (test code = Lymphocytes) 15.5 20.0-40.0 [facility] HospitalKlopwtvTYAYUJSGTV2680-67-39 05:10:00 Test Item Value Reference Range Interpretation Comments Neutrophils # (test code = Neutrophils 2.6 1.5-8.1 #) [facility] HospitalAedsytbAVSSKBYGMQ2210-98-54 05:10:00 Test Item Value Reference Range Interpretation Comments Monocytes # (test code 0.4 See_Comment [Aut omated message] The = Monocytes #) system which generated this result tra nsmitted reference range : <=0.8. The reference r katie was not used to int erpret this result as normal/abnormal . [facility] HospitalIukievjRNWQMEEMOR9584-77-00 05:10:00 Test Item Value Reference Range Interpretation Comments Lymphocytes # (test code = Lymphocytes 0.6 1.0-5.5 #) [facility] HospitalVeomtftWXMTZYSSKK4745-30-41 05:10:00 Test Item Value Reference Range Interpretation Comments Basophils (test code = 0.9 See_Comment [Aut omated message] The Basophils) system which ge nerated this result tra nsmitted reference range : <=1.0. The reference r katie was not used to int erpret this result as normal/abnormal . [facility] HospitalZkuqlfyNEHBYDINIG3498-93-77 05:10:00 Test Item Value Reference Range Interpretation Comments Eosinophils # (test code 0.1 See_Comment [A utomated message] The = Eosinophils #) system whic h generated this result tra nsmitted reference range : <=0.5. The reference r katie was not used to int erpret this result as normal/abnormal . [facility] HospitalUongauxLMBRNIRPBQ6618-59-93 05:10:00 Test Item Value Reference Range Interpretation Comments MPV (test code = MPV) 9.3 7.4-10.4 [facility] HospitalHzbrqvcBQUIWHJSGL3922-08-66 05:10:00 Test Item Value Reference Range Interpretation Comments Platelet (test code = Platelet) 90 133-450 [facility] HospitalIlssgqaPFGBKLLNZJ3039-20-88 05:10:00 Test Item Value Reference Range Interpretation Comments RDW (test code = RDW) 13.6 11.5-14.5 [facility] HospitalWiojvxsHLAADMDEAA2584-45-78 05:10:00 Test Item Value Reference Range Interpretation Comments MCV (test code = MCV) 91.4 80.0-94.0 [facility] HospitalMabucvbLEIESHVJTZ7744-35-11 05:10:00 Test Item Value Reference Range Interpretation Comments MCHC (test code = MCHC) 34.0 32.0-36.0 [facility] HospitalCcxoowoPCOWAJTFSC3865-26-09 05:10:00 Test Item Value Reference Range Interpretation Comments MCH (test code = MCH) 31.1 pg 27.0-31.0 [facility] HospitalBifmhusFKWPKELXAS5627-55-07 05:10:00 Test Item Value Reference Range Interpretation Comments Hgb (test code = Hgb) 6.7 14.0-18.0 [facility] HospitalOebwvqhURZRCNZXVQ8561-72-65 05:10:00 Test Item Value Reference Range Interpretation Comments Hct (test code = Hct) 19.6 42.0-54.0 [facility] HospitalShpsjrnWCAGEGAXRU1218-74-22 05:10:00 Test Item Value Reference Range Interpretation Comments WBC (test code = WBC) 3.7 3.7-10.4 [facility] HospitalRasvgcdOOQTNWZWKC9462-11-84 05:10:00 Test Item Value Reference Range Interpretation Comments RBC (test code = RBC) 2.14 4.70-6.10 [facility]2018-09-11 06:15:00 Test Item Value Reference Range Interpretation Comments eGFR (test code = eGFR) 28 [facility]2018-09-11 06:15:00 Test Item Value Reference Range Interpretation Comments Calcium Lvl (test code = Calcium Lvl) 7.2 8.5-10.5 [facility]2018-09-11 06:15:00 Test Item Value Reference Range Interpretation Comments Sodium Lvl (test code = Sodium Lvl) 135 135-145 [facility]2018-09-11 06:15:00 Test Item Value Reference Range Interpretation Comments Potassium Lvl (test code = Potassium 4.4 3.5-5.1 Lvl) [facility]2018-09-11 06:15:00 Test Item Value Reference Range Interpretation Comments CO2 (test code = CO2) 22 24-32 [facility]2018-09-11 06:15:00 Test Item Value Reference Range Interpretation Comments Chloride Lvl (test code = Chloride Lvl) 101 95-109 [facility]2018-09-11 06:15:00 Test Item Value Reference Range Interpretation Comments AGAP (test code = AGAP) 16.4 10.0-20.0 [facility]2018-09-11 06:15:00 Test Item Value Reference Range Interpretation Comments Glucose Lvl (test code = Glucose Lvl) 288 70-99 [facility]2018-09-11 06:15:00 Test Item Value Reference Range Interpretation Comments Creatinine Lvl (test code = Creatinine 2.29 0.50-1.40 Lvl) [facility]2018-09-11 06:15:00 Test Item Value Reference Range Interpretation Comments BUN (test code = BUN) 44 7-22 [facility] HospitalOtvjzzcJFNGPRKULF0431-84-90 06:15:00 Test Item Value Reference Range Interpretation Comments Eosinophils # (test code 0.1 See_Comment [A utomated message] The = Eosinophils #) system whic h generated this result tra nsmitted reference range : <=0.5. The reference r katie was not used to int erpret this result as normal/abnormal . [facility] HospitalTpzynrbKOTMRRBRBG7284-06-26 06:15:00 Test Item Value Reference Range Interpretation Comments Lymphocytes # (test code = Lymphocytes 0.7 1.0-5.5 #) [facility] HospitalEfeuyizOTJHRFDBDU0061-27-79 06:15:00 Test Item Value Reference Range Interpretation Comments Monocytes # (test code 0.4 See_Comment [Aut omated message] The = Monocytes #) system which generated this result tra nsmitted reference range : <=0.8. The reference r katie was not used to int erpret this result as normal/abnormal . [facility] HospitalKeujphpQWMZJHPSJO3584-88-73 06:15:00 Test Item Value Reference Range Interpretation Comments Basophils (test code = 0.8 See_Comment [Aut omated message] The Basophils) system which ge nerated this result tra nsmitted reference range : <=1.0. The reference r katie was not used to int erpret this result as normal/abnormal . [place] [address]-09-11 06:15:00 Test Item Value Reference Range Interpretation Comments Neutrophils # (test code = Neutrophils 2.1 1.5-8.1 #) [facility] HospitalYydztjkPIBDEBHYTQ8159-28-01 06:15:00 Test Item Value Reference Range Interpretation Comments Lymphocytes (test code = Lymphocytes) 20.6 20.0-40.0 [facility] HospitalNxiyfuzTSBCYMXLCJ0499-43-29 06:15:00 Test Item Value Reference Range Interpretation Comments Segs (test code = Segs) 63.3 45.0-75.0 [facility] HospitalFbymottYXKJNMYKCN8638-40-05 06:15:00 Test Item Value Reference Range Interpretation Comments Monocytes (test code = Monocytes) 11.2 2.0-12.0 [facility] HospitalAufggoqWBJFVNVHXT3355-04-10 06:15:00 Test Item Value Reference Range Interpretation Comments Eosinophils (test code = 4.1 See_Comment [A utomated message] The Eosinophils) system which ge nerated this result tra nsmitted reference range : <=4.0. The reference r katie was not used to int erpret this result as normal/abnormal . [facility] HospitalNgqxfuqUFJPOVPIUC6482-38-05 06:15:00 Test Item Value Reference Range Interpretation Comments RBC (test code = RBC) 2.19 4.70-6.10 [facility] HospitalLiihqflYHJIEOLJDR1867-08-22 06:15:00 Test Item Value Reference Range Interpretation Comments Hgb (test code = Hgb) 6.7 14.0-18.0 [facility] HospitalYaolobxQDQEKTTUVP5876-81-48 06:15:00 Test Item Value Reference Range Interpretation Comments Hct (test code = Hct) 19.9 42.0-54.0 [facility] HospitalPkorvauGPNOKUWGHJ5409-56-90 06:15:00 Test Item Value Reference Range Interpretation Comments WBC (test code = WBC) 3.3 3.7-10.4 [place] 887978-09-11 06:15:00 Test Item Value Reference Range Interpretation Comments MCV (test code = MCV) 90.9 80.0-94.0 [place] 887978-09-11 06:15:00 Test Item Value Reference Range Interpretation Comments MCH (test code = MCH) 30.8 pg 27.0-31.0 [facility] HospitalOvfcducWRYFRSGTSZ0136-30-60 06:15:00 Test Item Value Reference Range Interpretation Comments MCHC (test code = MCHC) 33.9 32.0-36.0 [facility] HospitalTveiibeMBTZEVWACG9187-35-60 06:15:00 Test Item Value Reference Range Interpretation Comments RDW (test code = RDW) 13.6 11.5-14.5 [facility] HospitalIypvkzfNBMORFSSWC3947-82-92 06:15:00 Test Item Value Reference Range Interpretation Comments Platelet (test code = Platelet) 74 133-450 [facility] HospitalYtmlveqASYBSKNYBD5751-26-51 06:15:00 Test Item Value Reference Range Interpretation Comments MPV (test code = MPV) 9.0 7.4-10.4 [facility]2018-09-11 06:15:00 Test Item Value Reference Range Interpretation Comments Ca Norm WB (test code = Ca Norm WB) 0.95 1.05-1.25 [facility]2018-09-11 06:15:00 Test Item Value Reference Range Interpretation Comments Ca Ion WB (test code = Ca Ion WB) 0.95 1.05-1.25 [facility]2018-09-11 06:15:00 Test Item Value Reference Range Interpretation Comments eGFR (test code = eGFR) 28 [facility]2018-09-11 06:15:00 Test Item Value Reference Range Interpretation Comments Calcium Lvl (test code = Calcium Lvl) 7.2 8.5-10.5 [facility]2018-09-11 06:15:00 Test Item Value Reference Range Interpretation Comments Sodium Lvl (test code = Sodium Lvl) 135 135-145 [facility]2018-09-11 06:15:00 Test Item Value Reference Range Interpretation Comments Potassium Lvl (test code = Potassium 4.4 3.5-5.1 Lvl) [facility]2018-09-11 06:15:00 Test Item Value Reference Range Interpretation Comments CO2 (test code = CO2) 22 24-32 [facility]2018-09-11 06:15:00 Test Item Value Reference Range Interpretation Comments Chloride Lvl (test code = Chloride Lvl) 101 95-109 [facility]2018-09-11 06:15:00 Test Item Value Reference Range Interpretation Comments AGAP (test code = AGAP) 16.4 10.0-20.0 [facility]2018-09-11 06:15:00 Test Item Value Reference Range Interpretation Comments Glucose Lvl (test code = Glucose Lvl) 288 70-99 [facility]2018-09-11 06:15:00 Test Item Value Reference Range Interpretation Comments Creatinine Lvl (test code = Creatinine 2.29 0.50-1.40 Lvl) [facility]2018-09-11 06:15:00 Test Item Value Reference Range Interpretation Comments BUN (test code = BUN) 44 7-22 [place] 887978-09-11 06:15:00 Test Item Value Reference Range Interpretation Comments Eosinophils # (test code 0.1 See_Comment [A utomated message] The = Eosinophils #) system whic h generated this result tra nsmitted reference range : <=0.5. The reference r katie was not used to int erpret this result as normal/abnormal . [facility] HospitalTabkablUPGDGBITEM8965-19-42 06:15:00 Test Item Value Reference Range Interpretation Comments Lymphocytes # (test code = Lymphocytes 0.7 1.0-5.5 #) [facility] HospitalLnkokdgMWAYXSHHBH4095-25-35 06:15:00 Test Item Value Reference Range Interpretation Comments Monocytes # (test code 0.4 See_Comment [Aut omated message] The = Monocytes #) system which generated this result tra nsmitted reference range : <=0.8. The reference r katie was not used to int erpret this result as normal/abnormal . [facility] HospitalEotkhphTONNLRBNIF9755-85-39 06:15:00 Test Item Value Reference Range Interpretation Comments Basophils (test code = 0.8 See_Comment [Aut omated message] The Basophils) system which ge nerated this result tra nsmitted reference range : <=1.0. The reference r katie was not used to int erpret this result as normal/abnormal . [facility] HospitalPhthfvgKHNVIMMBTP7273-78-99 06:15:00 Test Item Value Reference Range Interpretation Comments Neutrophils # (test code = Neutrophils 2.1 1.5-8.1 #) [facility] HospitalYlwlgdhYFTMFODGJA8629-61-70 06:15:00 Test Item Value Reference Range Interpretation Comments Lymphocytes (test code = Lymphocytes) 20.6 20.0-40.0 [place] [address]-09-11 06:15:00 Test Item Value Reference Range Interpretation Comments Segs (test code = Segs) 63.3 45.0-75.0 [facility] HospitalTwxcreuDCDQCWWQIL4282-27-67 06:15:00 Test Item Value Reference Range Interpretation Comments Monocytes (test code = Monocytes) 11.2 2.0-12.0 [facility] HospitalJcftswiKTKFECPJGR5458-44-65 06:15:00 Test Item Value Reference Range Interpretation Comments Eosinophils (test code = 4.1 See_Comment [A utomated message] The Eosinophils) system which ge nerated this result tra nsmitted reference range : <=4.0. The reference r katie was not used to int erpret this result as normal/abnormal . [facility] HospitalKuivozhVQNFQBJWRP3228-33-20 06:15:00 Test Item Value Reference Range Interpretation Comments RBC (test code = RBC) 2.19 4.70-6.10 [facility] HospitalGpyukuvYFUEOACIDG0156-12-68 06:15:00 Test Item Value Reference Range Interpretation Comments Hgb (test code = Hgb) 6.7 14.0-18.0 [facility] HospitalRlvyndsMJOCYTZAZM5191-87-77 06:15:00 Test Item Value Reference Range Interpretation Comments Hct (test code = Hct) 19.9 42.0-54.0 [facility] HospitalRcmvsvuTQLQOLHXBL6199-83-85 06:15:00 Test Item Value Reference Range Interpretation Comments WBC (test code = WBC) 3.3 3.7-10.4 [facility] HospitalEhdppgqFLDTBAUSAQ0807-93-59 06:15:00 Test Item Value Reference Range Interpretation Comments MCV (test code = MCV) 90.9 80.0-94.0 [facility] HospitalKitmbwpFLTHIONCDU6917-04-86 06:15:00 Test Item Value Reference Range Interpretation Comments MCH (test code = MCH) 30.8 pg 27.0-31.0 [facility] HospitalQgvmuybRDYEMEGJOI2179-22-69 06:15:00 Test Item Value Reference Range Interpretation Comments MCHC (test code = MCHC) 33.9 32.0-36.0 [facility] HospitalPhtshwwTNBIDEALCT8378-59-28 06:15:00 Test Item Value Reference Range Interpretation Comments RDW (test code = RDW) 13.6 11.5-14.5 [facility] HospitalQxedqgdTGOSPBIMGI5377-37-30 06:15:00 Test Item Value Reference Range Interpretation Comments Platelet (test code = Platelet) 74 133-450 [facility]tiidykYOJPQIGEQT9391-38-31 06:15:00 Test Item Value Reference Range Interpretation Comments MPV (test code = MPV) 9.0 7.4-10.4 [facility] CenterPARATHYROID DNUKAPW1434-58-27 06:15:00 Test Item Value Reference Range Interpretation Comments Ca Norm WB (test code = Ca Norm WB) 0.95 1.05-1.25 [facility]RO[facility] IMALEUR1343-71-63 06:15:00 Test Item Value Reference Range Interpretation Comments Ca Ion WB (test code = Ca Ion WB) 0.95 1.05-1.25 [facility]2018-09-11 06:15:00 Test Item Value Reference Range Interpretation Comments eGFR (test code = eGFR) 28 [facility]2018-09-11 06:15:00 Test Item Value Reference Range Interpretation Comments Calcium Lvl (test code = Calcium Lvl) 7.2 8.5-10.5 [facility]2018-09-11 06:15:00 Test Item Value Reference Range Interpretation Comments Sodium Lvl (test code = Sodium Lvl) 135 135-145 [facility]2018-09-11 06:15:00 Test Item Value Reference Range Interpretation Comments Potassium Lvl (test code = Potassium 4.4 3.5-5.1 Lvl) [facility]2018-09-11 06:15:00 Test Item Value Reference Range Interpretation Comments CO2 (test code = CO2) 22 24-32 [facility]2018-09-11 06:15:00 Test Item Value Reference Range Interpretation Comments Chloride Lvl (test code = Chloride Lvl) 101 95-109 [facility]2018-09-11 06:15:00 Test Item Value Reference Range Interpretation Comments AGAP (test code = AGAP) 16.4 10.0-20.0 [facility]2018-09-11 06:15:00 Test Item Value Reference Range Interpretation Comments Glucose Lvl (test code = Glucose Lvl) 288 70-99 [facility]2018-09-11 06:15:00 Test Item Value Reference Range Interpretation Comments Creatinine Lvl (test code = Creatinine 2.29 0.50-1.40 Lvl) [facility]2018-09-11 06:15:00 Test Item Value Reference Range Interpretation Comments BUN (test code = BUN) 44 7-22 [facility] HospitalCetbxrsSJEMRGTTFQ6109-64-95 06:15:00 Test Item Value Reference Range Interpretation Comments Eosinophils # (test code 0.1 See_Comment [A utomated message] The = Eosinophils #) system whic h generated this result tra nsmitted reference range : <=0.5. The reference r katie was not used to int erpret this result as normal/abnormal . [facility] HospitalQgibsajMNWLYPEMEI5479-57-65 06:15:00 Test Item Value Reference Range Interpretation Comments Lymphocytes # (test code = Lymphocytes 0.7 1.0-5.5 #) [facility] HospitalEtldhudJZSCVFCVNR7315-74-81 06:15:00 Test Item Value Reference Range Interpretation Comments Monocytes # (test code 0.4 See_Comment [Aut omated message] The = Monocytes #) system which generated this result tra nsmitted reference range : <=0.8. The reference r katie was not used to int erpret this result as normal/abnormal . [facility] HospitalFmiwyscBPXIXJVCRY6782-38-03 06:15:00 Test Item Value Reference Range Interpretation Comments Basophils (test code = 0.8 See_Comment [Aut omated message] The Basophils) system which ge nerated this result tra nsmitted reference range : <=1.0. The reference r katie was not used to int erpret this result as normal/abnormal . [facility] HospitalNpcwuviUHBMAOJAPR3359-01-09 06:15:00 Test Item Value Reference Range Interpretation Comments Neutrophils # (test code = Neutrophils 2.1 1.5-8.1 #) [facility] HospitalKuuqpzeZCINTIMGFK1706-34-90 06:15:00 Test Item Value Reference Range Interpretation Comments Lymphocytes (test code = Lymphocytes) 20.6 20.0-40.0 [facility] HospitalViexthoUQRQSOFWNP0199-19-25 06:15:00 Test Item Value Reference Range Interpretation Comments Segs (test code = Segs) 63.3 45.0-75.0 [facility] HospitalCsmecxiDBNBMSQHFM5305-18-20 06:15:00 Test Item Value Reference Range Interpretation Comments Monocytes (test code = Monocytes) 11.2 2.0-12.0 [facility] HospitalGixivexJFNRLIGGFC7641-48-27 06:15:00 Test Item Value Reference Range Interpretation Comments Eosinophils (test code = 4.1 See_Comment [A utomated message] The Eosinophils) system which ge nerated this result tra nsmitted reference range : <=4.0. The reference r katie was not used to int erpret this result as normal/abnormal . [facility]NyaccxvCIKUUJMFUH1513-61-12 06:15:00 Test Item Value Reference Range Interpretation Comments RBC (test code = RBC) 2.19 4.70-6.10 [facility] HospitalIwswlvyNUORSVPICT3773-24-15 06:15:00 Test Item Value Reference Range Interpretation Comments Hgb (test code = Hgb) 6.7 14.0-18.0 [facility] HospitalDsqgtqkAOAKJQINZP2637-27-27 06:15:00 Test Item Value Reference Range Interpretation Comments Hct (test code = Hct) 19.9 42.0-54.0 [facility] HospitalKuznrtgNBZLOJZQKM5048-91-73 06:15:00 Test Item Value Reference Range Interpretation Comments WBC (test code = WBC) 3.3 3.7-10.4 [facility] HospitalOdoriepBUZXSGFUEG1922-61-01 06:15:00 Test Item Value Reference Range Interpretation Comments MCV (test code = MCV) 90.9 80.0-94.0 [facility] HospitalCqsdfftZWHXQLXSEO0732-14-29 06:15:00 Test Item Value Reference Range Interpretation Comments MCH (test code = MCH) 30.8 pg 27.0-31.0 [facility] HospitalHbmfblrOKZEKCZPRA0657-78-90 06:15:00 Test Item Value Reference Range Interpretation Comments MCHC (test code = MCHC) 33.9 32.0-36.0 [facility] HospitalZkfnbkgMFRXRLTSBW2724-57-15 06:15:00 Test Item Value Reference Range Interpretation Comments RDW (test code = RDW) 13.6 11.5-14.5 [facility] HospitalGmxbeozALHRSUGYBR7532-02-89 06:15:00 Test Item Value Reference Range Interpretation Comments Platelet (test code = Platelet) 74 133-450 [facility] HospitalQqrlbbiJCCCSBFKXB7120-49-99 06:15:00 Test Item Value Reference Range Interpretation Comments MPV (test code = MPV) 9.0 7.4-10.4 [facility]PARATHYROID [id number] 06:15:00 Test Item Value Reference Range Interpretation Comments Ca Norm WB (test code = Ca Norm WB) 0.95 1.05-1.25 [facility]PARATHYRO[facility] [id number] 06:15:00 Test Item Value Reference Range Interpretation Comments Ca Ion WB (test code = Ca Ion WB) 0.95 1.05-1.25 [facility]annCHEM [id number] 21:30:00 Test Item Value Reference Range Interpretation Comments Phosphorus (test code = Phosphorus) 5.9 2.5-4.5 [facility]CHEM [id number] 21:30:00 Test Item Value Reference Range Interpretation Comments Magnesium Lvl (test code = Magnesium 1.7 1.8-2.4 Lvl) [facility]annUN[facility] [id number] 21:30:00 Test Item Value Reference Range Interpretation Comments Phosphorus (test code = Phosphorus) 5.9 2.5-4.5 [facility]annCHEM [id number] 21:30:00 Test Item Value Reference Range Interpretation Comments Magnesium Lvl (test code = Magnesium 1.7 1.8-2.4 Lvl) [facility]annCHEM [id number] 21:30:00 Test Item Value Reference Range Interpretation Comments Phosphorus (test code = Phosphorus) 5.9 2.5-4.5 [facility]CHE[facility] [id number] 21:30:00 Test Item Value Reference Range Interpretation Comments Magnesium Lvl (test code = Magnesium 1.7 1.8-2.4 Lvl) [facility]annCARDIAC [id number] 09:25:00 Test Item Value Reference Range Interpretation Comments Total CK (test code = Total CK) 661 12-191 [facility]annCHEM [id number] 09:25:00 Test Item Value Reference Range Interpretation Comments Phosphorus (test code = Phosphorus) 6.3 2.5-4.5 [facility]annIronstar [place] [id number] 09:25:00 Test Item Value Reference Range Interpretation Comments Magnesium Lvl (test code = Magnesium 1.6 1.8-2.4 Lvl) [facility] [id number] 09:25:00 Test Item Value Reference Range Interpretation Comments Myoglobin (test code = Myoglobin) 4736 25-72 [facility]annCARPoptentAC [id number] 09:25:00 Test Item Value Reference Range Interpretation Comments Total CK (test code = Total CK) 661 12191 [facility] [id number] 09:25:00 Test Item Value Reference Range Interpretation Comments Phosphorus (test code = Phosphorus) 6.3 2.5-4.5 [facility] PlanoOYO SportstoysCHEM [id number] 09:25:00 Test Item Value Reference Range Interpretation Comments Magnesium Lvl (test code = Magnesium 1.6 1.8-2.4 Lvl) [facility] PlanoKjrnwueOPFOECWOR4092-08-14 09:25:00 Test Item Value Reference Range Interpretation Comments Myoglobin (test code = Myoglobin) 2375 [facility] CenterCARDIAC [id number] 09:25:00 Test Item Value Reference Range Interpretation Comments Total CK (test code = Total CK) 661 12-191 [facility] PlanoB[facility] [id number] 09:25:00 Test Item Value Reference Range Interpretation Comments Phosphorus (test code = Phosphorus) 6.3 2.5-4.5 [facility]anoB[facility] [id number] 09:25:00 Test Item Value Reference Range Interpretation Comments Magnesium Lvl (test code = Magnesium 1.6 1.8-2.4 Lvl) [facility] PlanoMjurpecRCINBARVT0281-50-37 09:25:00 Test Item Value Reference Range Interpretation Comments Myoglobin (test code = Myoglobin) 6 -18 [facility]anoB[facility] [id number] 04:41:00 Test Item Value Reference Range Interpretation Comments Phosphorus (test code = Phosphorus) 6.3 2.5-4.5 [facility]anoB[facility] [id number] 04:41:00 Test Item Value Reference Range Interpretation Comments Magnesium Lvl (test code = Magnesium 1.6 1.8-2.4 Lvl) [facility] [id number] 04:41:00 Test Item Value Reference Range Interpretation Comments Lactic Acid Lvl (test code = Lactic 2.0 0.5-2.2 Acid Lvl) [facility]anoB[facility] [id number] 04:41:00 Test Item Value Reference Range Interpretation Comments Ketone Quantitative (test code = Ketone 0.11 Quantitative) [facility] [id number] 04:41:00 Test Item Value Reference Range Interpretation Comments Estimated % Lysis Rapid 0.4 See_Comment [Au tomated message] The (test code = Estimated syste m which generated % Lysis Rapid) this result t ransmitted reference range : <=7.5. The reference r katie was not used to int erpret this result as normal/abnormal . [facility] HospitalGywgvjxRXVYYNBEUH9575-65-17 04:41:00 Test Item Value Reference Range Interpretation Comments Max Amplitude Rapid (test code = Max 65 mm 52-71 Amplitude Rapid) [facility] HospitalRwyhdajOFDXBKBXPD4544-81-17 04:41:00 Test Item Value Reference Range Interpretation Comments G-value Rapid (test code = G-value 9.4 5.0-11.6 Rapid) [facility] HospitalVbewdgsLYRVPSYQZA4072-01-31 04:41:00 Test Item Value Reference Range Interpretation Comments ACT (TEG) Rapid (test code = ACT (TEG) 105 s 86-118 Rapid) [facility] HospitalZycicwtMBWYEYLFVD4740-49-01 04:41:00 Test Item Value Reference Range Interpretation Comments Split Point Rapid (test code = Split 0.4 min Point Rapid) [facility] HospitalBjmquvoWMYIWRRMCS3116-57-15 04:41:00 Test Item Value Reference Range Interpretation Comments R-time Rapid (test code = R-time 0.6 min 0.4-0.7 Rapid) [facility] Hos[id number] 04:41:00 Test Item Value Reference Range Interpretation Comments K-time Rapid (test code = K-time 1.0 min 0.6-2.3 Rapid) [facility] HospitalBjixjsyPKTFLSPHHO0299-53-65 04:41:00 Test Item Value Reference Range Interpretation Comments Angle Rapid (test code = Angle 76 degrees 64-80 Rapid) [facility]2018-09-10 04:41:00 Test Item Value Reference Range Interpretation Comments Ca Norm WB (test code = Ca Norm WB) 0.96 1.05-1.25 [facility]2018-09-10 04:41:00 Test Item Value Reference Range Interpretation Comments Ca Ion WB (test code = Ca Ion WB) 0.99 1.05-1.25 [facility]2018-09-10 04:41:00 Test Item Value Reference Range Interpretation Comments UA Sq Epi (test code = UA Sq Epi) None Seen [facility]2018-09-10 04:41:00 Test Item Value Reference Range Interpretation Comments UA Urobilinogen (test code = UA 4.0 0.1-1.0 Urobilinogen) [facility] AND [id number] 04:41:00 Test Item Value Reference Range Interpretation Comments UA Nitrite (test code Negative (07/15/18 11:41 = UA Nitrite) PM) [facility] AND [id number] 04:41:00 Test Item Value Reference Range Interpretation Comments UA Bili (test code = Negative *NA*(07/15/18 UA Bili) 11:41 PM) [facility] AND [id number] 04:41:00 Test Item Value Reference Range Interpretation Comments UA Blood (test code = Large *ABN*(07/15/18 UA Blood) 11:41 PM) [facility] AND [id number] 04:41:00 Test Item Value Reference Range Interpretation Comments UA Glucose (test code = UA Negative mg/dL Glucose) [facility] AND [id number] 04:41:00 Test Item Value Reference Range Interpretation Comments UA Ketones (test code = UA Trace mg/dL Ketones) [facility] AND [id number] 04:41:00 Test Item Value Reference Range Interpretation Comments UA Protein (test code = UA Protein) 30 mg/dL [facility] AND [id number] 04:41:00 Test Item Value Reference Range Interpretation Comments UA pH (test code = UA pH) 5.0 1 5.0-8.0 [facility] AND [id number] 04:41:00 Test Item Value Reference Range Interpretation Comments UA Leuk Est (test code Large *ABN*(07/15/18 = UA Leuk Est) 11:41 PM) [facility] AND [id number] 04:41:00 Test Item Value Reference Range Interpretation Comments UA WBC (test code = 44 See_Comment [Automa didi message] The UA WBC) system which ge nerated this result transmit didi reference range : <=5. The reference range was not used to interpr et this result as james l/abnormal. [facility] AND [id number] 04:41:00 Test Item Value Reference Range Interpretation Comments UA RBC (test code = 154 See_Comment [Automa didi message] The UA RBC) system which ge nerated this result transmit didi reference range : <=2. The reference range was not used to interpr et this result as james l/abnormal. [facility]annUR[facility] [id number] 04:41:00 Test Item Value Reference Range Interpretation Comments UA Bacteria (test code = UA Occasional /HPF Bacteria) [facility] [place] [facility] [id number] 04:41:00 Test Item Value Reference Range Interpretation Comments UA Hyal Cast (test 58 See_Comment [Automat ed message] The code = UA Hyal Cast) system which generated this result transmit didi reference range : <=2. The reference range was not used to interpr et this result as james l/abnormal. [facility] [place] [facility] [id number] 04:41:00 Test Item Value Reference Range Interpretation Comments UA Spec Grav (test code = UA Spec 1.031 1 Grav) [facility] AND [id number] 04:41:00 Test Item Value Reference Range Interpretation Comments UA Turbidity (test code Slight *ABN*(07/15/18 = UA Turbidity) 11:41 PM) [facility] AND [id number] 04:41:00 Test Item Value Reference Range Interpretation Comments UA Color (test code = Yellow *NA*(07/15/18 UA Color) 11:41 PM) [facility] [id number] 04:41:00 Test Item Value Reference Range Interpretation Comments U Sodium (test code = U Sodium) 29 [facility] [id number] 04:41:00 Test Item Value Reference Range Interpretation Comments U Creatinine (test code = U 191.00 Creatinine) [facility] CenterCulture: [id number] 04:41:00 Test Item Value Reference Range Interpretation Comments Culture: Urine (test code = No Growth Culture: Urine) [facility] CenterIron[facility] [place] [id number] 04:41:00 Test Item Value Reference Range Interpretation Comments Phosphorus (test code = Phosphorus) 6.3 2.5-4.5 [facility]annCHEM [id number] 04:41:00 Test Item Value Reference Range Interpretation Comments Magnesium Lvl (test code = Magnesium 1.6 1.8-2.4 Lvl) [facility] [place] [id number] 04:41:00 Test Item Value Reference Range Interpretation Comments Lactic Acid Lvl (test code = Lactic 2.0 0.5-2.2 Acid Lvl) [facility] [id number] 04:41:00 Test Item Value Reference Range Interpretation Comments Ketone Quantitative (test code = Ketone 0.11 Quantitative) [facility] HospitalKneesouVDDTZOFZOO5712-82-11 04:41:00 Test Item Value Reference Range Interpretation Comments Estimated % Lysis Rapid 0.4 See_Comment [Au tomated message] The (test code = Estimated syste m which generated % Lysis Rapid) this result t ransmitted reference range : <=7.5. The reference r katie was not used to int erpret this result as normal/abnormal . [facility] H[id number] 04:41:00 Test Item Value Reference Range Interpretation Comments Max Amplitude Rapid (test code = Max 65 mm 52-71 Amplitude Rapid) [facility] HospitalRqglpgvQVQLAVTXAE0545-35-21 04:41:00 Test Item Value Reference Range Interpretation Comments G-value Rapid (test code = G-value 9.4 5.0-11.6 Rapid) [facility] HospitalKftfrtgMAAWTDZXNS4040-68-79 04:41:00 Test Item Value Reference Range Interpretation Comments ACT (TEG) Rapid (test code = ACT (TEG) 105 s 86-118 Rapid) [facility] HospitalJbqldeqATZYMJJQNG7183-03-52 04:41:00 Test Item Value Reference Range Interpretation Comments Split Point Rapid (test code = Split 0.4 min Point Rapid) [facility] HospitalXbohyqtAXLENZHQLF4927-59-08 04:41:00 Test Item Value Reference Range Interpretation Comments R-time Rapid (test code = R-time 0.6 min 0.4-0.7 Rapid) [facility] HospitalYghzzsbBMCSXKNRQX8031-22-39 04:41:00 Test Item Value Reference Range Interpretation Comments K-time Rapid (test code = K-time 1.0 min 0.6-2.3 Rapid) [facility] HospitalDlzwblaGWERKGRZKP8098-48-49 04:41:00 Test Item Value Reference Range Interpretation Comments Angle Rapid (test code = Angle 76 degrees 64-80 Rapid) [facility] [id number] 04:41:00 Test Item Value Reference Range Interpretation Comments Ca Norm WB (test code = Ca Norm WB) 0.96 1.05-1.25 [facility]annPARATHYROID [id number] 04:41:00 Test Item Value Reference Range Interpretation Comments Ca Ion WB (test code = Ca Ion WB) 0.99 1.05-1.25 [facility] [id number] 04:41:00 Test Item Value Reference Range Interpretation Comments UA Sq Epi (test code = UA Sq Epi) None Seen [facility] AND [id number] 04:41:00 Test Item Value Reference Range Interpretation Comments UA Urobilinogen (test code = UA 4.0 0.1-1.0 Urobilinogen) [facility] AND [id number] 04:41:00 Test Item Value Reference Range Interpretation Comments UA Nitrite (test code Negative (07/15/18 11:41 = UA Nitrite) PM) [facility] AND [id number] 04:41:00 Test Item Value Reference Range Interpretation Comments UA Bili (test code = Negative *NA*(07/15/18 UA Bili) 11:41 PM) [facility] AND [id number] 04:41:00 Test Item Value Reference Range Interpretation Comments UA Blood (test code = Large *ABN*(07/15/18 UA Blood) 11:41 PM) [facility] AND [id number] 04:41:00 Test Item Value Reference Range Interpretation Comments UA Glucose (test code = UA Negative mg/dL Glucose) [facility] AND [id number] 04:41:00 Test Item Value Reference Range Interpretation Comments UA Ketones (test code = UA Trace mg/dL Ketones) [facility] AND [id number] 04:41:00 Test Item Value Reference Range Interpretation Comments UA Protein (test code = UA Protein) 30 mg/dL [facility] AND [id number] 04:41:00 Test Item Value Reference Range Interpretation Comments UA pH (test code = UA pH) 5.0 1 5.0-8.0 [facility] [place] [facility] [id number] 04:41:00 Test Item Value Reference Range Interpretation Comments UA Leuk Est (test code Large *ABN*(07/15/18 = UA Leuk Est) 11:41 PM) [facility] AND [id number] 04:41:00 Test Item Value Reference Range Interpretation Comments UA WBC (test code = 44 See_Comment [Automa didi message] The UA WBC) system which ge nerated this result transmit didi reference range : <=5. The reference range was not used to interpr et this result as james l/abnormal. [facility] AND [id number] 04:41:00 Test Item Value Reference Range Interpretation Comments UA RBC (test code = 154 See_Comment [Automa didi message] The UA RBC) system which ge nerated this result transmit didi reference range : <=2. The reference range was not used to interpr et this result as james l/abnormal. [facility] AND [id number] 04:41:00 Test Item Value Reference Range Interpretation Comments UA Bacteria (test code = UA Occasional /HPF Bacteria) [facility] AND [id number] 04:41:00 Test Item Value Reference Range Interpretation Comments UA Hyal Cast (test 58 See_Comment [Automat ed message] The code = UA Hyal Cast) system which generated this result transmit didi reference range : <=2. The reference range was not used to interpr et this result as james l/abnormal. [facility] AND [id number] 04:41:00 Test Item Value Reference Range Interpretation Comments UA Spec Grav (test code = UA Spec 1.031 1 Grav) [facility] AND [id number] 04:41:00 Test Item Value Reference Range Interpretation Comments UA Turbidity (test code Slight *ABN*(07/15/18 = UA Turbidity) 11:41 PM) [facility] AND [id number] 04:41:00 Test Item Value Reference Range Interpretation Comments UA Color (test code = Yellow *NA*(07/15/18 UA Color) 11:41 PM) [facility] [id number] 04:41:00 Test Item Value Reference Range Interpretation Comments U Sodium (test code = U Sodium) 29 [facility] [id number] 04:41:00 Test Item Value Reference Range Interpretation Comments U Creatinine (test code = U 191.00 Creatinine) [facility] CenterCulture: [id number] 04:41:00 Test Item Value Reference Range Interpretation Comments Culture: Urine (test code = No Growth Culture: Urine) [facility]2018-09-10 04:41:00 Test Item Value Reference Range Interpretation Comments Phosphorus (test code = Phosphorus) 6.3 2.5-4.5 [facility]2018-09-10 04:41:00 Test Item Value Reference Range Interpretation Comments Magnesium Lvl (test code = Magnesium 1.6 1.8-2.4 Lvl) [facility]2018-09-10 04:41:00 Test Item Value Reference Range Interpretation Comments Lactic Acid Lvl (test code = Lactic 2.0 0.5-2.2 Acid Lvl) [facility]2018-09-10 04:41:00 Test Item Value Reference Range Interpretation Comments Ketone Quantitative (test code = Ketone 0.11 Quantitative) [facility] Hospit[id number] 04:41:00 Test Item Value Reference Range Interpretation Comments Estimated % Lysis Rapid 0.4 See_Comment [Au tomated message] The (test code = Estimated syste m which generated % Lysis Rapid) this result t ransmitted reference range : <=7.5. The reference r katie was not used to int erpret this result as normal/abnormal . [facility] H[id number] 04:41:00 Test Item Value Reference Range Interpretation Comments Max Amplitude Rapid (test code = Max 65 mm 52-71 Amplitude Rapid) [place] [id number] 04:41:00 Test Item Value Reference Range Interpretation Comments G-value Rapid (test code = G-value 9.4 5.0-11.6 Rapid) [facility] H[id number] 04:41:00 Test Item Value Reference Range Interpretation Comments ACT (TEG) Rapid (test code = ACT (TEG) 105 s 86-118 Rapid) [facility] HospitalSdddqpcLSCQAQNFSY9721-95-87 04:41:00 Test Item Value Reference Range Interpretation Comments Split Point Rapid (test code = Split 0.4 min Point Rapid) [facility] Ho[id number] 04:41:00 Test Item Value Reference Range Interpretation Comments R-time Rapid (test code = R-time 0.6 min 0.4-0.7 Rapid) [facility] HospitalNdzhpooTNAMLDDBCT6701-48-09 04:41:00 Test Item Value Reference Range Interpretation Comments K-time Rapid (test code = K-time 1.0 min 0.6-2.3 Rapid) [facility] RbdxsswMQPAAFAXXV4609-44-12 04:41:00 Test Item Value Reference Range Interpretation Comments Angle Rapid (test code = Angle 76 degrees 64-80 Rapid) [facility] HospitalannPARATHYROID [id number] 04:41:00 Test Item Value Reference Range Interpretation Comments Ca Norm WB (test code = Ca Norm WB) 0.96 1.05-1.25 [facility] HospitalannPARATHYROID [id number] 04:41:00 Test Item Value Reference Range Interpretation Comments Ca Ion WB (test code = Ca Ion WB) 0.99 1.05-1.25 [facility] [place] [facility] [id number] 04:41:00 Test Item Value Reference Range Interpretation Comments UA Sq Epi (test code = UA Sq Epi) None Seen [facility] AND [id number] 04:41:00 Test Item Value Reference Range Interpretation Comments UA Urobilinogen (test code = UA 4.0 0.1-1.0 Urobilinogen) [facility] AND [id number] 04:41:00 Test Item Value Reference Range Interpretation Comments UA Nitrite (test code Negative (07/15/18 11:41 = UA Nitrite) PM) [facility] AND [id number] 04:41:00 Test Item Value Reference Range Interpretation Comments UA Bili (test code = Negative *NA*(07/15/18 UA Bili) 11:41 PM) [facility] AND [id number] 04:41:00 Test Item Value Reference Range Interpretation Comments UA Blood (test code = Large *ABN*(07/15/18 UA Blood) 11:41 PM) [facility] AND [id number] 04:41:00 Test Item Value Reference Range Interpretation Comments UA Glucose (test code = UA Negative mg/dL Glucose) [facility] AND [id number] 04:41:00 Test Item Value Reference Range Interpretation Comments UA Ketones (test code = UA Trace mg/dL Ketones) [facility] AND [id number] 04:41:00 Test Item Value Reference Range Interpretation Comments UA Protein (test code = UA Protein) 30 mg/dL [facility] AND [id number] 04:41:00 Test Item Value Reference Range Interpretation Comments UA pH (test code = UA pH) 5.0 1 5.0-8.0 [facility] [id number] 04:41:00 Test Item Value Reference Range Interpretation Comments UA Leuk Est (test code Large *ABN*(07/15/18 = UA Leuk Est) 11:41 PM) [facility] [id number] 04:41:00 Test Item Value Reference Range Interpretation Comments UA WBC (test code = 44 See_Comment [Automa didi message] The UA WBC) system which ge nerated this result transmit didi reference range : <=5. The reference range was not used to interpr et this result as james l/abnormal. [facility] [id number] 04:41:00 Test Item Value Reference Range Interpretation Comments UA RBC (test code = 154 See_Comment [Automa didi message] The UA RBC) system which ge nerated this result transmit didi reference range : <=2. The reference range was not used to interpr et this result as james l/abnormal. [facility] [id number] 04:41:00 Test Item Value Reference Range Interpretation Comments UA Bacteria (test code = UA Occasional /HPF Bacteria) [facility] [id number] 04:41:00 Test Item Value Reference Range Interpretation Comments UA Hyal Cast (test 58 See_Comment [Automat ed message] The code = UA Hyal Cast) system which generated this result transmit didi reference range : <=2. The reference range was not used to interpr et this result as james l/abnormal. [facility] [id number] 04:41:00 Test Item Value Reference Range Interpretation Comments UA Spec Grav (test code = UA Spec 1.031 1 Grav) [facility] [id number] 04:41:00 Test Item Value Reference Range Interpretation Comments UA Turbidity (test code Slight *ABN*(07/15/18 = UA Turbidity) 11:41 PM) [facility] [id number] 04:41:00 Test Item Value Reference Range Interpretation Comments UA Color (test code = Yellow *NA*(07/15/18 UA Color) 11:41 PM) [facility] [id number] 04:41:00 Test Item Value Reference Range Interpretation Comments U Sodium (test code = U Sodium) 29 [facility] [id number] 04:41:00 Test Item Value Reference Range Interpretation Comments U Creatinine (test code = U 191.00 Creatinine) [facility] [id number] 04:41:00 Test Item Value Reference Range Interpretation Comments Culture: Urine (test code = No Growth Culture: Urine) [facility] [id number] 22:34:00 Test Item Value Reference Range Interpretation Comments U Urea (test code = U Urea) 99 [facility] [id number] 22:34:00 Test Item Value Reference Range Interpretation Comments U Osmolality (test code = U Osmolality) 330 300-800 [facility] [id number] 22:34:00 Test Item Value Reference Range Interpretation Comments U Creatinine (test code = U 154.00 Creatinine) [facility] [id number] 22:34:00 Test Item Value Reference Range Interpretation Comments U Urea (test code = U Urea) 99 [facility] [id number] 22:34:00 Test Item Value Reference Range Interpretation Comments U Osmolality (test code = U Osmolality) 330 300-800 [facility] [id number] 22:34:00 Test Item Value Reference Range Interpretation Comments U Creatinine (test code = U 154.00 Creatinine) [facility] [id number] 22:34:00 Test Item Value Reference Range Interpretation Comments U Urea (test code = U Urea) 99 [facility] [id number] 22:34:00 Test Item Value Reference Range Interpretation Comments U Osmolality (test code = U Osmolality) 330 300-800 [facility] [id number] 22:34:00 Test Item Value Reference Range Interpretation Comments U Creatinine (test code = U 154.00 Creatinine) [facility] CenterCARDIAC [id number] 20:32:00 Test Item Value Reference Range Interpretation Comments proBNP (test code = 765 See_Comment [Automa didi message] The proBNP) system which ge nerated this result tra nsmitted reference range : <=125. The reference r katie was not used to int erpret this result as james l/abnormal. [facility] CenterCHEM [id number] 20:32:00 Test Item Value Reference Range Interpretation Comments Lactic Acid Lvl (test code = Lactic 2.0 0.5-2.2 Acid Lvl) [facility] [id number] 20:32:00 Test Item Value Reference Range Interpretation Comments proBNP (test code = 765 See_Comment [Automa didi message] The proBNP) system which ge nerated this result tra nsmitted reference range : <=125. The reference r katie was not used to int erpret this result as james l/abnormal. [facility] CenterIronstar [place] [id number] 20:32:00 Test Item Value Reference Range Interpretation Comments Lactic Acid Lvl (test code = Lactic 2.0 0.5-2.2 Acid Lvl) [facility] [id number] 20:32:00 Test Item Value Reference Range Interpretation Comments proBNP (test code = 765 See_Comment [Automa didi message] The proBNP) system which ge nerated this result tra nsmitted reference range : <=125. The reference r katie was not used to int erpret this result as james l/abnormal. [facility] Center[facility] [place] [id number] 20:32:00 Test Item Value Reference Range Interpretation Comments Lactic Acid Lvl (test code = Lactic 2.0 0.5-2.2 Acid Lvl) [facility] [id number] 13:46:00 Test Item Value Reference Range Interpretation Comments Basophils # (test code 0.1 See_Comment [Aut omated message] The = Basophils #) system which generated this result tra nsmitted reference range : <=0.2. The reference r katie was not used to int erpret this result as normal/abnormal . [facility] CenterEnvestnetMER[facility] [id number] 13:46:00 Test Item Value Reference Range Interpretation Comments Hgb A1C (test code = Hgb A1C) 10.0 [facility] [id number] 13:46:00 Test Item Value Reference Range Interpretation Comments Basophils # (test code 0.1 See_Comment [Aut omated message] The = Basophils #) system which generated this result tra nsmitted reference range : <=0.2. The reference r katie was not used to int erpret this result as normal/abnormal . [facility] CenterPicooc [id number] 13:46:00 Test Item Value Reference Range Interpretation Comments Hgb A1C (test code = Hgb A1C) 10.0 [facility] [id number] 13:46:00 Test Item Value Reference Range Interpretation Comments Basophils # (test code 0.1 See_Comment [Aut omated message] The = Basophils #) system which generated this result tra nsmitted reference range : <=0.2. The reference r katie was not used to int erpret this result as normal/abnormal . [facility] [id number] 13:46:00 Test Item Value Reference Range Interpretation Comments Hgb A1C (test code = Hgb A1C) 10.0 [facility] [id number] 06:41:00 Test Item Value Reference Range Interpretation Comments Lactic Acid Lvl (test code = Lactic 2.4 0.5-2.2 Acid Lvl) [facility]2018-09-09 06:41:00 Test Item Value Reference Range Interpretation Comments Lactic Acid Lvl (test code = Lactic 2.4 0.5-2.2 Acid Lvl) [facility]2018-09-09 06:41:00 Test Item Value Reference Range Interpretation Comments Lactic Acid Lvl (test code = Lactic 2.4 0.5-2.2 Acid Lvl) [facility] [id number] 06:37:00 Test Item Value Reference Range Interpretation Comments Basophils # (test code 0.1 See_Comment [Aut omated message] The = Basophils #) system which generated this result tra nsmitted reference range : <=0.2. The reference r katie was not used to int erpret this result as normal/abnormal . [facility] [id number] 06:37:00 Test Item Value Reference Range Interpretation Comments Basophils # (test code 0.1 See_Comment [Aut omated message] The = Basophils #) system which generated this result tra nsmitted reference range : <=0.2. The reference r katie was not used to int erpret this result as normal/abnormal . [facility] [id number] 06:37:00 Test Item Value Reference Range Interpretation Comments Basophils # (test code 0.1 See_Comment [Aut omated message] The = Basophils #) system which generated this result tra nsmitted reference range : <=0.2. The reference r katie was not used to int erpret this result as normal/abnormal . [facility] [id number] 00:06:00 Test Item Value Reference Range Interpretation Comments U Benzodiaz Scr (test Negative *NA*(07/14/18 code = U Benzodiaz Scr) 7:06 PM) [facility] [id number] 00:06:00 Test Item Value Reference Range Interpretation Comments U Tessa Scr (test code Negative *NA*(07/14/18 = U Tessa Scr) 7:06 PM) [facility] [id number] 00:06:00 Test Item Value Reference Range Interpretation Comments U Cocaine Scr (test Negative *NA*(07/14/18 code = U Cocaine Scr) 7:06 PM) [facility] [id number] 00:06:00 Test Item Value Reference Range Interpretation Comments U Cannab Scr (test Negative *NA*(07/14/18 code = U Cannab Scr) 7:06 PM) [facility] [id number] 00:06:00 Test Item Value Reference Range Interpretation Comments U Phencyclidine Scr (test Negative *NA*(07/14/18 code = U Phencyclidine 7:06 PM) Scr) [facility] [id number] 00:06:00 Test Item Value Reference Range Interpretation Comments U Opiate Scr (test Negative *NA*(07/14/18 code = U Opiate Scr) 7:06 PM) [facility] [id number] 00:06:00 Test Item Value Reference Range Interpretation Comments UDS Note (test code = See Note *NA*(07/14/18 UDS Note) 7:06 PM) [facility] [id number] 00:06:00 Test Item Value Reference Range Interpretation Comments U Amph Scr (test code Negative *NA*(07/14/18 = U Amph Scr) 7:06 PM) [facility] [id number] 00:06:00 Test Item Value Reference Range Interpretation Comments UA Sq Epi (test code = UA Sq Epi) Rare /LPF [facility] [id number] 00:06:00 Test Item Value Reference Range Interpretation Comments UA RBC (test None Seen See_Comment [Automated mes aarti] code = UA RBC) (07/14/18 7:06 PM) The syste m which generated this result transmitted ref erence range: <=2. The reference range was not used to int erpret this result as normal/abnormal . [facility] AND [id number] 00:06:00 Test Item Value Reference Range Interpretation Comments UA WBC (test code = UA WBC) 1-3 [facility] AND [id number] 00:06:00 Test Item Value Reference Range Interpretation Comments UA Leuk Est (test Negative (07/14/18 7:06 code = UA Leuk Est) PM) [facility] AND [id number] 00:06:00 Test Item Value Reference Range Interpretation Comments UA Blood (test code = Negative (07/14/18 7:06 UA Blood) PM) [facility] AND [id number] 00:06:00 Test Item Value Reference Range Interpretation Comments UA Urobilinogen (test code = UA 0.2 0.1-1.0 Urobilinogen) [facility] AND [id number] 00:06:00 Test Item Value Reference Range Interpretation Comments UA Nitrite (test code Negative (07/14/18 7:06 = UA Nitrite) PM) [facility] AND [id number] 00:06:00 Test Item Value Reference Range Interpretation Comments UA Bili (test code = Negative *NA*(07/14/18 UA Bili) 7:06 PM) [facility] AND [id number] 00:06:00 Test Item Value Reference Range Interpretation Comments UA Ketones (test code Negative *NA*(07/14/18 = UA Ketones) 7:06 PM) [facility] AND [id number] 00:06:00 Test Item Value Reference Range Interpretation Comments UA Protein (test code = UA Protein) 30 mg/dL [facility] AND [id number] 00:06:00 Test Item Value Reference Range Interpretation Comments UA Glucose (test code Negative (07/14/18 7:06 = UA Glucose) PM) [facility] AND [id number] 00:06:00 Test Item Value Reference Range Interpretation Comments UA Color (test code = Yellow *NA*(07/14/18 7:06 UA Color) PM) [facility] [id number] 00:06:00 Test Item Value Reference Range Interpretation Comments UA Turbidity (test code = Clear (07/14/18 7:06 UA Turbidity) PM) [facility] [id number] 00:06:00 Test Item Value Reference Range Interpretation Comments UA Spec Grav (test code = UA Spec 1.010 1 Grav) [facility] [id number] 00:06:00 Test Item Value Reference Range Interpretation Comments UA pH (test code = UA pH) 5.5 1 5.0-8.0 [facility] [id number] 00:06:00 Test Item Value Reference Range Interpretation Comments U Benzodiaz Scr (test Negative *NA*(07/14/18 code = U Benzodiaz Scr) 7:06 PM) [facility] [id number] 00:06:00 Test Item Value Reference Range Interpretation Comments U Tessa Scr (test code Negative *NA*(07/14/18 = U Tessa Scr) 7:06 PM) [facility] [id number] 00:06:00 Test Item Value Reference Range Interpretation Comments U Cocaine Scr (test Negative *NA*(07/14/18 code = U Cocaine Scr) 7:06 PM) [facility] [id number] 00:06:00 Test Item Value Reference Range Interpretation Comments U Cannab Scr (test Negative *NA*(07/14/18 code = U Cannab Scr) 7:06 PM) [facility] [id number] 00:06:00 Test Item Value Reference Range Interpretation Comments U Phencyclidine Scr (test Negative *NA*(07/14/18 code = U Phencyclidine 7:06 PM) Scr) [facility] [id number] 00:06:00 Test Item Value Reference Range Interpretation Comments U Opiate Scr (test Negative *NA*(07/14/18 code = U Opiate Scr) 7:06 PM) [facility] [id number] 00:06:00 Test Item Value Reference Range Interpretation Comments UDS Note (test code = See Note *NA*(07/14/18 UDS Note) 7:06 PM) [facility] [id number] 00:06:00 Test Item Value Reference Range Interpretation Comments U Amph Scr (test code Negative *NA*(07/14/18 = U Amph Scr) 7:06 PM) [facility] AND [id number] 00:06:00 Test Item Value Reference Range Interpretation Comments UA Sq Epi (test code = UA Sq Epi) Rare /LPF [facility] AND [id number] 00:06:00 Test Item Value Reference Range Interpretation Comments UA RBC (test None Seen See_Comment [Automated mes aarti] code = UA RBC) (07/14/18 7:06 PM) The syste m which generated this result transmitted ref erence range: <=2. The reference range was not used to int erpret this result as normal/abnormal . [facility] AND [id number] 00:06:00 Test Item Value Reference Range Interpretation Comments UA WBC (test code = UA WBC) 1-3 [facility] AND [id number] 00:06:00 Test Item Value Reference Range Interpretation Comments UA Leuk Est (test Negative (07/14/18 7:06 code = UA Leuk Est) PM) [facility] AND [id number] 00:06:00 Test Item Value Reference Range Interpretation Comments UA Blood (test code = Negative (07/14/18 7:06 UA Blood) PM) [facility] AND [id number] 00:06:00 Test Item Value Reference Range Interpretation Comments UA Urobilinogen (test code = UA 0.2 0.1-1.0 Urobilinogen) [facility] AND [id number] 00:06:00 Test Item Value Reference Range Interpretation Comments UA Nitrite (test code Negative (07/14/18 7:06 = UA Nitrite) PM) [facility] AND [id number] 00:06:00 Test Item Value Reference Range Interpretation Comments UA Bili (test code = Negative *NA*(07/14/18 UA Bili) 7:06 PM) [facility] AND [id number] 00:06:00 Test Item Value Reference Range Interpretation Comments UA Ketones (test code Negative *NA*(07/14/18 = UA Ketones) 7:06 PM) [facility] AND [id number] 00:06:00 Test Item Value Reference Range Interpretation Comments UA Protein (test code = UA Protein) 30 mg/dL [facility] [place] [facility] [id number] 00:06:00 Test Item Value Reference Range Interpretation Comments UA Glucose (test code Negative (07/14/18 7:06 = UA Glucose) PM) [facility] AND [id number] 00:06:00 Test Item Value Reference Range Interpretation Comments UA Color (test code = Yellow *NA*(07/14/18 7:06 UA Color) PM) [facility] AND [id number] 00:06:00 Test Item Value Reference Range Interpretation Comments UA Turbidity (test code = Clear (07/14/18 7:06 UA Turbidity) PM) [facility] AND [id number] 00:06:00 Test Item Value Reference Range Interpretation Comments UA Spec Grav (test code = UA Spec 1.010 1 Grav) [facility] AND [id number] 00:06:00 Test Item Value Reference Range Interpretation Comments UA pH (test code = UA pH) 5.5 1 5.0-8.0 [facility] [id number] 00:06:00 Test Item Value Reference Range Interpretation Comments U Benzodiaz Scr (test Negative *NA*(07/14/18 code = U Benzodiaz Scr) 7:06 PM) [facility] [id number] 00:06:00 Test Item Value Reference Range Interpretation Comments U Tessa Scr (test code Negative *NA*(07/14/18 = U Tessa Scr) 7:06 PM) [facility] [id number] 00:06:00 Test Item Value Reference Range Interpretation Comments U Cocaine Scr (test Negative *NA*(07/14/18 code = U Cocaine Scr) 7:06 PM) [facility] [id number] 00:06:00 Test Item Value Reference Range Interpretation Comments U Cannab Scr (test Negative *NA*(07/14/18 code = U Cannab Scr) 7:06 PM) [facility] [id number] 00:06:00 Test Item Value Reference Range Interpretation Comments U Phencyclidine Scr (test Negative *NA*(07/14/18 code = U Phencyclidine 7:06 PM) Scr) [facility] [id number] 00:06:00 Test Item Value Reference Range Interpretation Comments U Opiate Scr (test Negative *NA*(07/14/18 code = U Opiate Scr) 7:06 PM) [facility] [id number] 00:06:00 Test Item Value Reference Range Interpretation Comments UDS Note (test code = See Note *NA*(07/14/18 UDS Note) 7:06 PM) [facility] [id number] 00:06:00 Test Item Value Reference Range Interpretation Comments U Amph Scr (test code Negative *NA*(07/14/18 = U Amph Scr) 7:06 PM) [facility] [id number] 00:06:00 Test Item Value Reference Range Interpretation Comments UA Sq Epi (test code = UA Sq Epi) Rare /LPF [facility] [id number] 00:06:00 Test Item Value Reference Range Interpretation Comments UA RBC (test None Seen See_Comment [Automated mes aarti] code = UA RBC) (07/14/18 7:06 PM) The [employer] which generated this result transmitted ref erence range: <=2. The reference range was not used to int erpret this result as normal/abnormal . [facility] [id number] 00:06:00 Test Item Value Reference Range Interpretation Comments UA WBC (test code = UA WBC) 1-3 [facility] [id number] 00:06:00 Test Item Value Reference Range Interpretation Comments UA Leuk Est (test Negative (07/14/18 7:06 code = UA Leuk Est) PM) [facility] [id number] 00:06:00 Test Item Value Reference Range Interpretation Comments UA Blood (test code = Negative (07/14/18 7:06 UA Blood) PM) [facility] [id number] 00:06:00 Test Item Value Reference Range Interpretation Comments UA Urobilinogen (test code = UA 0.2 0.1-1.0 Urobilinogen) [facility] [id number] 00:06:00 Test Item Value Reference Range Interpretation Comments UA Nitrite (test code Negative (07/14/18 7:06 = UA Nitrite) PM) [facility] [id number] 00:06:00 Test Item Value Reference Range Interpretation Comments UA Bili (test code = Negative *NA*(07/14/18 UA Bili) 7:06 PM) [facility] AND [id number] 00:06:00 Test Item Value Reference Range Interpretation Comments UA Ketones (test code Negative *NA*(07/14/18 = UA Ketones) 7:06 PM) [facility] AND [id number] 00:06:00 Test Item Value Reference Range Interpretation Comments UA Protein (test code = UA Protein) 30 mg/dL [facility] AND [id number] 00:06:00 Test Item Value Reference Range Interpretation Comments UA Glucose (test code Negative (07/14/18 7:06 = UA Glucose) PM) [facility] AND [id number] 00:06:00 Test Item Value Reference Range Interpretation Comments UA Color (test code = Yellow *NA*(07/14/18 7:06 UA Color) PM) [facility] AND [id number] 00:06:00 Test Item Value Reference Range Interpretation Comments UA Turbidity (test code = Clear (07/14/18 7:06 UA Turbidity) PM) [facility] AND [id number] 00:06:00 Test Item Value Reference Range Interpretation Comments UA Spec Grav (test code = UA Spec 1.010 1 Grav) [facility] AND [id number] 00:06:00 Test Item Value Reference Range Interpretation Comments UA pH (test code = UA pH) 5.5 1 5.0-8.0 [facility] CenterSeer TechnologiesAC [id number] 22:29:18 Test Item Value Reference Range Interpretation Comments Troponin-I (test code no gt See_Comment [Auto mated message] The = Troponin-I) system which g enerated this result transmit didi reference range : <=0.40. The reference r katie was not used to interpr et this result as james l/abnormal. [facility] CenterSe[facility] Technologies [id number] 22:29:18 Test Item Value Reference Range Interpretation Comments Troponin-I (test code no gt See_Comment [Auto mated message] The = Troponin-I) system which g enerated this result transmit didi reference range : <=0.40. The reference r katie was not used to interpr et this result as james l/abnormal. [facility] [id number] 22:29:18 Test Item Value Reference Range Interpretation Comments Troponin-I (test code no gt See_Comment [Auto mated message] The = Troponin-I) system which g enerated this result transmit didi reference range : <=0.40. The reference r katie was not used to interpr et this result as james l/abnormal. [facility] [id number] 22:05:00 Test Item Value Reference Range Interpretation Comments Basophils # (test code 0.1 See_Comment [Aut omated message] The = Basophils #) system which generated this result tra nsmitted reference range : <=0.2. The reference r katie was not used to int erpret this result as normal/abnormal . [facility] [id number] 22:05:00 Test Item Value Reference Range Interpretation Comments Basophils # (test code 0.1 See_Comment [Aut omated message] The = Basophils #) system which generated this result tra nsmitted reference range : <=0.2. The reference r katie was not used to int erpret this result as normal/abnormal . [facility] [id number] 22:05:00 Test Item Value Reference Range Interpretation Comments Basophils # (test code 0.1 See_Comment [Aut omated message] The = Basophils #) system which generated this result tra nsmitted reference range : <=0.2. The reference r katie was not used to int erpret this result as normal/abnormal . [facility] [id number] 19:58:00 Test Item Value Reference Range Interpretation Comments Antibody Scrn (test Negative (07/14/18 2:58 code = Antibody Scrn) PM) [facility] [id number] 19:58:00 Test Item Value Reference Range Interpretation Comments ABO/Rh (test code = ABO/Rh) O POS [facility] [id number] 19:58:00 Test Item Value Reference Range Interpretation Comments Estimated % Lysis Rapid 0.1 See_Comment [Au tomated message] The (test code = Estimated syste m which generated % Lysis Rapid) this result t ransmitted reference range : <=7.5. The reference r katie was not used to int erpret this result as normal/abnormal . [facility] [id number] 19:58:00 Test Item Value Reference Range Interpretation Comments G-value Rapid (test code = G-value 12.0 5.0-11.6 Rapid) [facility] H[id number] 19:58:00 Test Item Value Reference Range Interpretation Comments Max Amplitude Rapid (test code = Max 71 mm 52-71 Amplitude Rapid) [facility] [id number] 19:58:00 Test Item Value Reference Range Interpretation Comments Split Point Rapid (test code = Split 0.5 min Point Rapid) [facility] H[id number] 19:58:00 Test Item Value Reference Range Interpretation Comments ACT (TEG) Rapid (test code = ACT (TEG) 113 s 86-118 Rapid) [facility] H[id number] 19:58:00 Test Item Value Reference Range Interpretation Comments R-time Rapid (test code = R-time 0.7 min 0.4-0.7 Rapid) [id number] 19:58:00 Test Item Value Reference Range Interpretation Comments K-time Rapid (test code = K-time 1.0 min 0.6-2.3 Rapid) [facility] H[id number] 19:58:00 Test Item Value Reference Range Interpretation Comments Angle Rapid (test code = Angle 77 degrees 64-80 Rapid) [facility] H[id number] 19:58:00 Test Item Value Reference Range Interpretation Comments PT (test code = PT) 13.7 s 12.0-14.7 [facility] H[id number] 19:58:00 Test Item Value Reference Range Interpretation Comments INR (test code = INR) 1.05 1 0.85-1.17 [facility] H[id number] 19:58:00 Test Item Value Reference Range Interpretation Comments PTT (test code = PTT) 25.0 s 22.9-35.8 [place] [id number] 19:58:00 Test Item Value Reference Range Interpretation Comments Etoh (%) (test code = Etoh (%)) <0.003 % [place] [id number] 19:58:00 Test Item Value Reference Range Interpretation Comments Ethanol Lvl (test code = Ethanol <3.0 mg/dL Lvl) [facility] [id number] 19:58:00 Test Item Value Reference Range Interpretation Comments Antibody Scrn (test Negative (07/14/18 2:58 code = Antibody Scrn) PM) [facility] [id number] 19:58:00 Test Item Value Reference Range Interpretation Comments ABO/Rh (test code = ABO/Rh) O POS [facility] H[id number] 19:58:00 Test Item Value Reference Range Interpretation Comments Estimated % Lysis Rapid 0.1 See_Comment [Au tomated message] The (test code = Estimated syste m which generated % Lysis Rapid) this result t ransmitted reference range : <=7.5. The reference r katie was not used to int erpret this result as normal/abnormal . [facility] Hos[id number] 19:58:00 Test Item Value Reference Range Interpretation Comments G-value Rapid (test code = G-value 12.0 5.0-11.6 Rapid) [facility] H[id number] 19:58:00 Test Item Value Reference Range Interpretation Comments Max Amplitude Rapid (test code = Max 71 mm 52-71 Amplitude Rapid) [facility] Hospit[id number] 19:58:00 Test Item Value Reference Range Interpretation Comments Split Point Rapid (test code = Split 0.5 min Point Rapid) [facility] Hospit[id number] 19:58:00 Test Item Value Reference Range Interpretation Comments ACT (TEG) Rapid (test code = ACT (TEG) 113 s 86-118 Rapid) [facility] H[id number] 19:58:00 Test Item Value Reference Range Interpretation Comments R-time Rapid (test code = R-time 0.7 min 0.4-0.7 Rapid) [facility] HospitalSdhphkuYBPFDGFAOR9152-99-05 19:58:00 Test Item Value Reference Range Interpretation Comments K-time Rapid (test code = K-time 1.0 min 0.6-2.3 Rapid) [facility] Hospit[id number] 19:58:00 Test Item Value Reference Range Interpretation Comments Angle Rapid (test code = Angle 77 degrees 64-80 Rapid) [facility] Hospit[id number] 19:58:00 Test Item Value Reference Range Interpretation Comments PT (test code = PT) 13.7 s 12.0-14.7 [facility] Hospit[id number] 19:58:00 Test Item Value Reference Range Interpretation Comments INR (test code = INR) 1.05 1 0.85-1.17 [facility] Ho[id number] 19:58:00 Test Item Value Reference Range Interpretation Comments PTT (test code = PTT) 25.0 s 22.9-35.8 [place] [id number] 19:58:00 Test Item Value Reference Range Interpretation Comments Etoh (%) (test code = Etoh (%)) <0.003 % [place] [id number] 19:58:00 Test Item Value Reference Range Interpretation Comments Ethanol Lvl (test code = Ethanol <3.0 mg/dL Lvl) [facility] [id number] 19:58:00 Test Item Value Reference Range Interpretation Comments Antibody Scrn (test Negative (07/14/18 2:58 code = Antibody Scrn) PM) [facility] [id number] 19:58:00 Test Item Value Reference Range Interpretation Comments ABO/Rh (test code = ABO/Rh) O POS [facility] Ho[id number] 19:58:00 Test Item Value Reference Range Interpretation Comments Estimated % Lysis Rapid 0.1 See_Comment [Au tomated message] The (test code = Estimated syste m which generated % Lysis Rapid) this result t ransmitted reference range : <=7.5. The reference r katie was not used to int erpret this result as normal/abnormal . [facility] H[id number] 19:58:00 Test Item Value Reference Range Interpretation Comments G-value Rapid (test code = G-value 12.0 5.0-11.6 Rapid) [facility] H[id number] 19:58:00 Test Item Value Reference Range Interpretation Comments Max Amplitude Rapid (test code = Max 71 mm 52-71 Amplitude Rapid) [facility] H[id number] 19:58:00 Test Item Value Reference Range Interpretation Comments Split Point Rapid (test code = Split 0.5 min Point Rapid) [facility] H[id number] 19:58:00 Test Item Value Reference Range Interpretation Comments ACT (TEG) Rapid (test code = ACT (TEG) 113 s 86-118 Rapid) [facility] H[id number] 19:58:00 Test Item Value Reference Range Interpretation Comments R-time Rapid (test code = R-time 0.7 min 0.4-0.7 Rapid) [facility] H[id number] 19:58:00 Test Item Value Reference Range Interpretation Comments K-time Rapid (test code = K-time 1.0 min 0.6-2.3 Rapid) [facility] H[id number] 19:58:00 Test Item Value Reference Range Interpretation Comments Angle Rapid (test code = Angle 77 degrees 64-80 Rapid) [facility] H[id number] 19:58:00 Test Item Value Reference Range Interpretation Comments PT (test code = PT) 13.7 s 12.0-14.7 [facility] Ho[id number] 19:58:00 Test Item Value Reference Range Interpretation Comments INR (test code = INR) 1.05 1 0.85-1.17 [facility] Hospit[id number] 19:58:00 Test Item Value Reference Range Interpretation Comments PTT (test code = PTT) 25.0 s 22.9-35.8 [place] [id number] 19:58:00 Test Item Value Reference Range Interpretation Comments Etoh (%) (test code = Etoh (%)) <0.003 % [place] [id number] 19:58:00 Test Item Value Reference Range Interpretation Comments Ethanol Lvl (test code = Ethanol <3.0 mg/dL Lvl) [facility]
--- NOTE | 2022-11-05 13:50 | RAD REPORT ---
EXAM DESCRIPTION: RAD - Chest Single View - 11/05/2022 1:45 pm CLINICAL HISTORY: abd pain COMPARISON: No comparisons FINDINGS: Lines: Right IJ approach dialysis catheter with tip overlying the SVC. Lungs: No evidence of edema or pneumonia. Pleural: No significant pleural effusions or pneumothorax. Cardiac: The heart size is within normal limits. Mediastinum: Within normal limits. Bones: No acute fractures. Other: None IMPRESSION: No acute cardiopulmonary disease.
--- NOTE | 2022-11-05 14:21 | RAD REPORT ---
EXAM DESCRIPTION: CTAbdomen Pelvis Wo Contrast - 11/05/2022 2:08 pm CLINICAL HISTORY: Abdominal pain, acute, nonlocalized COMPARISON: Renal Ultrasound-Complete dated 10/14/2022 TECHNIQUE: CT of the abdomen and pelvis was performed without contrast. All CT scans are performed using dose optimization technique as appropriate and may include automated exposure control or mA/KV adjustment according to patient size. FINDINGS: Lower chest: Multi-vessel coronary artery disease. Liver: Small volume of perihepatic ascites . Biliary: Distended gallbladder. Cholelithiasis. Mild gallbladder wall thickening. Stomach: No significant focal abnormality. Duodenum: No significant focal abnormality. Pancreas: No significant abnormality. Spleen: No significant abnormality. Adrenal: No suspicious lesions. Kidney/ureter: No hydronephrosis. No renal calculi. Nonspecific bilateral perinephric stranding. Retroperitoneum: No retroperitoneal adenopathy. Vascular: No aneurysm. Bowel: Mild diffuse colonic wall thickening.. Peritoneum: No ascites or free air. Bladder: Solano catheter is decompressed on the bladder. Reproductive: No adnexal masses. Bones: No acute fracture. Other: n/a IMPRESSION: 1. Cholelithiasis with distended gallbladder and mild pericholecystic stranding. Correla te for acute cholecystitis. 2. Mild diffuse colonic wall thickening may be related to either underdistention or colitis. 3. Small volume of perihepatic ascites which is nonspecific.
[2022-11-05 14:34] LABS: Protime INR 1.23
[2022-11-05 14:45] LABS: Absolute Lymphocytes (CBC) 0.4 K/uL (0.7-4.9); Lymphocytes % 8.5 % (15.3-44.8); MCV 81.4 fL (80-100); MPV 7.3 fL (7.6-11.3); RBC Red Blood Cell Count 2.56 M/uL (4.33-5.43)
[2022-11-05 14:53] LABS: ALT/SGPT < 10 U/L (16-61); AST/SGOT 13 U/L (15-37); Alkaline Phosphatase 108 U/L (45-117); BUN Blood Urea Nitrogen 43 mg/dL (7-18); Bicarbonate 20 mmol/L (21-32); Bilirubin Total 0.8 mg/dL (0.2-1.0); Glomerular Filtration Rate 14 ml/min (=/>90); Glucose Level 112 mg/dL (74-106); Magnesium 1.8 mg/dL (1.6-2.4); NT PRO-BNP 21677 pg/mL (<125); Potassium 3.6 mmol/L (3.5-5.1); Protein, Total 7.2 g/dL (6.4-8.2); Sodium Level 136 mmol/L (136-145); Troponin High Sensitivity 31.9 pg/mL (<58.9)
[2022-11-05 14:55] LABS: Hematocrit 20.8 % (39.6-49.0)
[2022-11-05 15:21] LABS: SARS-CoV-2 Antigen Rapid Res Negative (Negative)
--- NOTE | 2022-11-05 15:24 | EDPHYS ---
Physician Documentation [facility] Name: Harpreet Chen Sr Age: 72 yrs Sex: Male : 1950 Arrival Date: 11/05/2022 Time: 13:01 Bed 17 Private MD: ED Physician Genaro Veras HPI: 11/05 13:20 This 72 yrs old Male presents to ER via EMS with complaints of Nausea. snw 13:20 The patient presents to the emergency department with nausea, diarrhea. Onset: The snw symptoms/episode began/occurred 4 day(s) ago, and became persistent. Possible causes: unknown. The symptoms are aggravated by nothing. Associated signs and symptoms: Pertinent positives: diarrhea, nausea. Severity of symptoms: At their worst the symptoms were incapacitating in the emergency department the symptoms have improved mildly. It is unknown whether or not the patient has had similar symptoms in the past. The patient has not recently seen a physician[facility] [place], Sat. Skipped [place], only 1 hour today at [facility]. Historical: - Allergies: 13:53 Lisinopril; eh3 - Home Meds: 14:56 Allopurinol Oral [Active]; gabapentin 300 mg oral cap [Active]; glipizide 5 mg Oral tab eh3 1 tab [Active]; aspirin 81 mg Oral cpDR 81 mg daily [Active]; isosorbide mononitrate 60 mg Oral Tb24 1 tab once daily [Active]; atorvastatin 80 mg oral tab 1 tab once daily [Active]; metolazone 5 mg oral tab 1 tab once daily [Active]; bumetanide 2 mg Oral tab 1 tab 2 times per day [Active]; midodrine 5 mg oral tab [Active]; carvedilol 6.25 mg oral tab [Active]; finasteride 5 mg oral tab 1 tab once daily [Active]; tamsulosin 0.4 mg oral cap 1 cap once daily [Active]; Lasix 80 mg Oral tab 1 tab 2 times per day [Active]; topiramate 25 mg oral cp24 1 cap once daily [Active]; - PMHx: 13:53 HD - Tue/Th/Sat; eh3 14:56 Diabetes mellitus; Anemia; Secondary hyperparathyroidism of renal origin; Chronic eh3 ischemic heart disease; - Immunization history:: Adult Immunizations up to date. - Social history:: Smoking status: unknown. ROS: 15:18 Constitutional: Negative for fever, chills, and weight loss, Eyes: Negative for injury, snw pain, redness, and discharge, ENT: Negative for injury, pain, and discharge, Neck: Negative for injury, pain, and swelling, Cardiovascular: Negative for chest pain, palpitations, and edema, Respiratory: Negative for shortness of breath, cough, wheezing, and pleuritic chest pain, Back: Negative for injury and pain, : Negative for injury, bleeding, discharge, and swelling, MS/Extremity: Negative for injury and deformity, Skin: Negative for injury, rash, and discoloration, Neuro: Negative for headache, weakness, numbness, tingling, and seizure, Psych: Negative for depression, anxiety, suicide ideation, homicidal ideation, and hallucinations. 15:18 Abdomen/GI: Positive for abdominal pain, nausea, diarrhea. Exam: 13:19 Head/Face: Normocephalic, atraumatic. Eyes: Pupils equal round and reactive to light, snw extra-ocular motions intact. Lids and lashes normal. Conjunctiva and sclera are non-icteric but pale. Cornea within normal limits. Periorbital areas with no swelling, redness, or edema. ENT: Nares patent. No nasal discharge, no septal abnormalities noted. Tympanic membranes are normal and external auditory canals are clear. Oropharynx with no redness, swelling, or masses, exudates, or evidence of obstruction, uvula midline. Mucous membranes moist. Neck: Trachea midline, no thyromegaly or masses palpated, and no cervical lymphadenopathy. Supple, full range of motion without nuchal rigidity, or vertebral point tenderness. No Meningismus. Chest/axilla: Normal chest wall appearance and motion. Nontender with no deformity. No lesions are appreciated. Cardiovascular: Regular rate and rhythm with a normal S1 and S2. No gallops, murmurs, or rubs. Normal PMI, no JVD. No pulse deficits. Respiratory: Lungs have equal breath sounds bilaterally, clear to auscultation and percussion. No rales, rhonchi or wheezes noted. No increased work of breathing, no retractions or nasal flaring. 13:19 Back: No spinal tenderness. No costovertebral tenderness. Full range of motion. 13:19 MS/ Extremity: Pulses equal, no cyanosis. Neurovascular intact. Paraplegia Neuro: Awake and alert, GCS 15, oriented to person, place, time, and situation. Cranial nerves II-XII grossly intact. Motor strength 5/5 in all extremities. Sensory grossly intact. Cerebellar exam normal. Normal gait. 13:19 Constitutional: The patient appears alert, awake, anxious, obese, pale. 13:19 Abdomen/GI: Inspection: obese Bowel sounds: diminished, Palpation: mild abdominal tenderness, in all quadrants. 13:19 Skin: Appearance: Color: pale. Vital Signs: 13:01 BP 135 / 73; Pulse 71; Resp 10; Temp 97.6(O); Pulse Ox 100% on R/A; Weight 115 kg; eh3 Height 6 ft. 0 in. (182.88 cm); 14:00 BP 141 / 56; Pulse 71; Resp 14; Pulse Ox 100% on R/A; eh3 16:45 BP 159 / 65; Pulse 74; Resp 14; Pulse Ox 98% on R/A; eh3 17:45 BP 142 / 68; Pulse 77; Resp 16; Pulse Ox 100% on R/A; eh3 13:01 Body Mass Index 34.38 (115.00 kg, 182.88 cm) 3 MDM: 13:03 Patient medically screened. snw 15:19 Data reviewed: vital signs, nurses notes. Data interpreted: Pulse oximetry: on room air snw is 100 %. Interpretation: normal. Counseling: I had a detailed discussion with the patient and/or guardian regarding: the historical points, exam findings, and any diagnostic results supporting the discharge/admit diagnosis, lab results, radiology results, the need for further work-up and treatment in the hospital. Response to treatment: the patient's symptoms have mildly improved after treatment. Physician consultation: was called at 15:20. 15:20 Physician consultation: Ashley Barrientos MD was contacted at 15:20, regarding snw consult, patient's condition, in the emergency department to see patient at 15:21. 11/05 13:16 Order name: Blood Culture Adult (2) snw 11/05 13:16 Order name: CMP; Complete Time: 15:09 snw 11/05 13:16 Order name: Lactate w/ 2H reflex if indic.; Complete Time: 14:44 snw 11/05 13:16 Order name: Protime (+inr); Complete Time: 14:36 snw 11/05 13:16 Order name: Ptt, Activated; Complete Time: 14:36 snw 11/05 13:16 Order name: Magnesium; Complete Time: 15:09 snw 11/05 13:16 Order name: NT PRO-BNP; Complete Time: 15:09 snw 11/05 13:16 Order name: Troponin HS; Complete Time: 15:09 snw 11/05 13:16 Order name: XRAY Chest (1 view); Complete Time: 13:51 snw 11/05 13:17 Order name: CT Abd/Pelvis - Without Contrast; Complete Time: 14:24 snw 11/05 14:08 Order name: CBC with Diff; Complete Time: 15:09 jl7 11/05 14:11 Order name: Glucose, Ancillary Testing; Complete Time: 14:12 EDMS 11/05 14:47 Order name: SARS RAPID; Complete Time: 15:24 snw 11/05 16:42 Order name: TS snw 11/05 13:16 Order name: Accucheck; Complete Time: 14:05 snw 11/05 13:16 Order name: Labs collected and sent; Complete Time: 14:05 snw 11/05 13:16 Order name: Vital Signs; Complete Time: 13:21 snw 11/05 13:16 Order name: IV Saline Lock; Complete Time: 14:05 snw 11/05 13:16 Order name: Labs collected and sent; Complete Time: 14:05 snw Administered Medications: 14:40 Drug: Cipro (ciprofloxacin) 200 mg Volume: 100 ml; Route: IVPB; Infused Over: 60 mins; eh3 Site: right wrist; 18:12 Follow up: Response: No adverse reaction; IV Status: Completed infusion; IV Intake: eh3 100ml 15:55 Drug: Phenergan (promethazine) 12.5 mg Route: IM; Site: right vastus lateralis; eh3 18:12 Follow up: Response: Nausea is decreased eh3 Disposition: 18:31 Co-signature as Attending Physician, Genaro Veras MD. rn Disposition Summary: 11/05/22 15:24 Hospitalization Ordered Hospitalization Status: Inpatient Admission snw Location: Telemetry/MedSurg (Inpatient) snw Condition: Fair snw Problem: an acute exacerbation snw Symptoms: are unchanged snw Bed/Room Type: Standard snw Provider: Yousif Matthews(11/05/22 16:26) snw Room Assignment: 217(11/05/22 17:50) dw Diagnosis - Indeterminate colitis snw - Acute cholecystitis snw - Anemia in chronic kidney disease snw Forms: - Medication Reconciliation Form snw - SBAR form snw Signatures: Dispatcher [employer] EDAlesha Smiley RN RN Amy Mendez, EQUINE VET-C EQUINE VET-Csnw Genaro Veras MD MD rn AndradeRicha RN RN 3 Corrections: (The following items were deleted from the chart) 16:26 15:24 Kenn Spivey snw snw 17:34 15:24 snw dw 17:50 17:34 208 dw dw
--- NOTE | 2022-11-05 15:24 | ER ---
Nurse's Notes [facility] Name: Harpreet Chen Sr Age: 72 yrs Sex: Male : 1950 Arrival Date: 11/05/2022 Time: 13:01 Bed 17 Private MD: Diagnosis: Indeterminate colitis;Acute cholecystitis;Anemia in chronic kidney disease Presentation: 11/05 13:01 Chief complaint: EMS states: nausea, diarrhea, and HTN after dialysis today. 3 13:01 Method Of Arrival: EMS: [facility] 3 13:01 Coronavirus screen: Vaccine status: Patient reports receiving the 2nd dose of the covid eh3 vaccine. Ebola Screen: No symptoms or risks identified at this time. Initial Sepsis Screen: Does the patient meet any 2 criteria? No. Patient's initial sepsis screen is negative. Does the patient have a suspected source of infection? No. Patient's initial sepsis screen is negative. Risk Assessment: Do you want to hurt yourself or someone else? Patient reports no desire to harm self or others. Onset of symptoms was November 05, 2022. 13:01 Acuity: MATTHEW 3 eh3 Triage Assessment: 13:01 General: Appears in no apparent distress. uncomfortable, Behavior is calm, cooperative, eh3 appropriate for age. Pain: Complains of pain in abdomen. EENT: No signs and/or symptoms were reported regarding the EENT system. Neuro: Level of Consciousness is awake, alert, obeys commands, Oriented to person, place, time, situation. Cardiovascular: Capillary refill < 3 seconds Patient's skin is warm and dry. Respiratory: Airway is patent Respiratory effort is even, unlabored, Respiratory pattern is regular, symmetrical. GI: Abdomen is round non-distended, Reports nausea, vomiting. : No signs and/or symptoms were reported regarding the genitourinary system. Derm: Skin is pale. Musculoskeletal: No signs and/or symptoms reported regarding the musculoskeletal system. Historical: - Allergies: 13:53 Lisinopril; eh3 - Home Meds: 14:56 Allopurinol Oral [Active]; gabapentin 300 mg oral cap [Active]; glipizide 5 mg Oral tab eh3 1 tab [Active]; aspirin 81 mg Oral cpDR 81 mg daily [Active]; isosorbide mononitrate 60 mg Oral Tb24 1 tab once daily [Active]; atorvastatin 80 mg oral tab 1 tab once daily [Active]; metolazone 5 mg oral tab 1 tab once daily [Active]; bumetanide 2 mg Oral tab 1 tab 2 times per day [Active]; midodrine 5 mg oral tab [Active]; carvedilol 6.25 mg oral tab [Active]; finasteride 5 mg oral tab 1 tab once daily [Active]; tamsulosin 0.4 mg oral cap 1 cap once daily [Active]; Lasix 80 mg Oral tab 1 tab 2 times per day [Active]; topiramate 25 mg oral cp24 1 cap once daily [Active]; - PMHx: 13:53 HD - Mon//Mon; eh3 14:56 Diabetes mellitus; Anemia; Secondary hyperparathyroidism of renal origin; Chronic eh3 ischemic heart disease; - Immunization history:: Adult Immunizations up to date. - Social history:: Smoking status: unknown. Screenin:01 [facility] ED Fall Risk Assessment (Adult) History of falling in the last 3 months, 3 including since admission No falls in past 3 months (0 pts) Confusion or Disorientation No (0 pts) Intoxicated or Sedated No (0 pts) Impaired Gait Yes (1 pt) Mobility Assist Device Used Yes (1 pt) Altered Elimination Yes (1 pt) Score/Fall Risk Level 3 or more points = High Risk Oriented to surroundings, Maintained a safe environment, Educated pt \T\ family on fall prevention, incl call for assistance when getting out of bed, Assessed \T\ reinforced patient's understanding of fall precautions, Hourly rounding (assess needs \T\ fall precautionary measures) done, Used ambulatory aids as needed (educated on \T\ assisted with), Implemented a Fall Risk Plan of Care. Abuse screen: Denies threats or abuse. Denies injuries from another. Nutritional screening: No deficits noted. Tuberculosis screening: No symptoms or risk factors identified. Assessment: 13:01 Reassessment: No changes from previously documented assessment. See triage assessment. eh3 GI: Abdomen is round Reports diarrhea, nausea, vomiting. Vital Signs: 13:01 BP 135 / 73; Pulse 71; Resp 10; Temp 97.6(O); Pulse Ox 100% on R/A; Weight 115 kg; eh3 Height 6 ft. 0 in. (182.88 cm); 14:00 BP 141 / 56; Pulse 71; Resp 14; Pulse Ox 100% on R/A; eh3 16:45 BP 159 / 65; Pulse 74; Resp 14; Pulse Ox 98% on R/A; eh3 17:45 BP 142 / 68; Pulse 77; Resp 16; Pulse Ox 100% on R/A; eh3 13:01 Body Mass Index 34.38 (115.00 kg, 182.88 cm) 3 ED Course: 13:01 Patient arrived in ED. eh3 13:01 Arm band placed on. eh3 13:01 Patient has correct armband on for positive identification. Bed in low position. Call 3 light in reach. Side rails up X2. Client placed on continuous cardiac and pulse oximetry monitoring. NIBP monitoring applied. Door closed. Noise minimized. Lights dimmed. Warm blanket given. 13:03 Amy Cruz FNP-C is [facility]. snw 13:03 Genaro Veras MD is Attending Physician. snw 13:17 Richa Andrade, JANY is Primary Nurse. eh3 13:46 XRAY Chest (1 view) In Process Unspecified. EDMS 13:53 Triage completed. eh3 13:59 Initial lab(s) drawn, by nm, sent to lab. First set of blood cultures drawn by me. jl7 14:07 Inserted saline lock: 22 gauge in right wrist, using aseptic technique. Blood collected.jl7 14:10 CT Abd/Pelvis - Without Contrast In Process Unspecified. EDMS 15:23 Kenn Spivey MD is Hospitalizing Provider. snw 16:26 Hospitalizing Provider role handed off by Kenn Spivey MD snw 16:26 Yousif Matthews is Hospitalizing Provider. snw 18:11 No provider procedures requiring assistance completed. Patient admitted, IV remains in eh3 place. Administered Medications: 14:40 Drug: Cipro (ciprofloxacin) 200 mg Volume: 100 ml; Route: IVPB; Infused Over: 60 mins; 3 Site: right wrist; 18:12 Follow up: Response: No adverse reaction; IV Status: Completed infusion; IV Intake: eh3 100ml 15:55 Drug: Phenergan (promethazine) 12.5 mg Route: IM; Site: right vastus lateralis; 3 18:12 Follow up: Response: Nausea is decreased eh3 Medication: 18:11 VIS not applicable for this client. eh3 Intake: 18:12 IV: 100ml; Total: 100ml. eh3 Outcome: 15:24 Decision to Hospitalize by Provider. snw 18:11 Admitted to Med/surg accompanied by tech, via stretcher, room 217. eh3 18:11 Condition: stable 18:11 Instructed on the need for admit. 18:12 Patient left the ED. eh3 Signatures: Dispatcher [employer] EDAmy Kingston FNP-C [employer] Sherrie Thompson RN RN jl7 Richa Andrade, JANY RN eh3 Corrections: (The following items were deleted from the chart) 13:44 13:01 BP 135 / 73; Pulse 71bpm; Resp 10bpm; Pulse Ox 100% RA; 115 kg; Height 6 ft. 0 eh3 in.; BMI: 34.3; eh3
[2022-11-05] MEDS ORDERED: PROMETHAZINE INJ 25 MG/ML AMP ONE (15:52)
--- NOTE | 2022-11-05 17:42 | P.HP ---
Certification for Inpatient Patient admitted to: Inpatient With expected LOS: >2 Midnights Practitioner: I am a practitioner with admitting privileges, knowledge of patient current condition, hospital course, and medical plan of care. Services: Services provided to patient in accordance with Admission requirements found in Title 42 Section 412.3 of the Code of Federal Regulations Patient History Date of Service: 11/05/22 Reason for admission: Abdominal pain, nausea and vomiting and diarrhea History of Present Illness: 72-year-old gentleman with a history of end-stage renal disease on hemodialysis, diabetes mellitus type 2 presented to the emergency department from dialysis due to nausea and vomiting and diarrhea. He is on routine dialysis on Tuesdays and Saturdays, per report he missed dialysis on and had only 1 hour of dialysis today. Patient stated his symptoms started about 5 days ago, has not been able to eat for several days. He had an episode of vomiting in the ED. CT abdomen and pelvis done in the ED suggest distended gallbladder and acute cholecystitis as well as colitis. Blood work showed hemoglobin of 7.1. Liver enzymes not elevated. Chest x-ray showed no acute disease. He does not meet criteria for sepsis. Patient is admitted for further management. Noted patient has a chronic indwelling Solano catheter with minimal urine output. He stated he makes about 45 cc of urine per day. Allergies lisinopril Allergy (Verified 10/13/22 22:03) Anaphylaxis - Past Medical/Surgical History -: ESRD/HD -: DMII-insulin dependent -: HTN -: HLD -: BPH -: CAD -: Endarterectomy -: Dialysis catheter Right chest Psychosocial/ Personal History: Pt lives at home with his daughter, is a pt of the [facility] - Family History Mother -: Heart disease - Social History Alcohol use: No CD- Drugs: No Caffeine use: Yes Review of Systems Other: Patient denied any fever, denied any chest pain or shortness of breath. Except as documented, all other systems reviewed and negative. Physical Examination - Physical Exam General: Alert, In no apparent distress, Oriented x3, Obese HEENT: PERRLA, Mucous membr. moist/pink, Sclerae nonicteric Neck: Supple, JVD not distended Respiratory: Clear to auscultation bilaterally, Normal air movement Cardiovascular: No edema, Regular rate/rhythm, Normal S1 S2, No murmurs Capillary refill: <2 Seconds Gastrointestinal: Normal bowel sounds, Non-distended, Tenderness (Right upper quadrant) Musculoskeletal: No swelling, No tenderness Integumentary: No rashes, No cyanosis Neurological: Normal speech, Normal strength at 5/5 x4 extr Lymphatics: No axilla or inguinal lymphadenopathy - Studies Laboratory Data (last 24 hrs) 11/05/22 14:15: WBC 4.80, Hgb 7.1 L, Hct 20.8 L*, Plt Count 154 11/05/22 13:59: PT 13.5 H, INR 1.23, APTT 46.1 H 11/05/22 13:59: Sodium 136, Potassium 3.6, BUN 43 H, Creatinine 4.26 H, Glucose 112 H, Magnesium 1.8, Total Bilirubin 0.8, AST 13 L, ALT < 10 L, Alkaline Phosphatase 108 Assessment and Plan - Problems (Diagnosis) (1) Acute cholecystitis Current Visit: Yes Status: Acute (2) Colitis Current Visit: Yes Status: Acute (3) End-stage renal disease on hemodialysis Current Visit: Yes Status: Acute (4) Diabetes mellitus type 2 in obese Current Visit: Yes Status: Acute (5) Anemia in chronic kidney disease, on chronic dialysis Current Visit: Yes Status: Acute - Plan Admitted to the medical floor. Start IV Rocephin and Flagyl. Follow blood cultures obtained in the ED. General surgery consulted to evaluate acute cholecystitis. Keep patient n.p.o. overnight. Nephrology consulted for hemodialysis. Dr. Zuluaga recommend hemodialysis tonight. Insulin sliding scale for glucose. Supportive measures with antiemetics and pain management as needed. Heparin subQ for DVT prophylaxis. IV Protonix. - Advance Directives Does patient have a Living Will: No Does patient have a Durable POA for Healthcare: No
[2022-11-05] MEDS: INSULIN -REGULAR HUMAN 50 UNIT/0.5 ML ML SQ SCH (19:12)
[2022-11-05] MEDS ORDERED: SODIUM CHLORIDE 0.9% 10ML INJ IV PRN (19:12)
[2022-11-05] MEDS ORDERED: ACETAMINOPHEN 650MG/RECT SUPP PR PRN (19:12)
[2022-11-05] MEDS: ONDANSETRON 4 MG/2 ML VIAL IV PRN (19:50)
[2022-11-05] MEDS ORDERED: NA CHLORIDE 0.9% 250 ML ONE ×2 (20:29→21:51)
[2022-11-05] MEDS ORDERED: EPOETIN ALFA 10,000 UNIT/ML VIAL SQ SCH (21:45)
[2022-11-05 23:11] VITALS: BMI 34.4
[2022-11-05 23:57] LABS: Hepatitis B surface AG Interp. Nonreactive (Nonreactive)
[2022-11-06] LABS: Hepatitis B Surface Ab - Quant < 3.10 mIU/mL (<8.0)
[2022-11-06] MEDS: METRONIDAZOLE 500mg IVPB 500 MG/100 ML BAG IV SCH ×4 (00:38→17:00)
[2022-11-06] MEDS: HEPARIN 5000 UNIT/ML 1 ML VIAL SQ SCH ×2 (00:39→09:00)
--- NOTE | 2022-11-06 01:48 | CON ---
Date of Consultation: 11/05/2022 Chief Complaint: End-stage renal disease on hemodialysis. History Of Present Illness: The patient was sent from dialysis today because of fever, abdominal pain, nausea, vomiting, and borderline hypotension. He was evaluated in the emergency room and was found to have acute cholecystitis. He was admitted to the hospital and lab work revealed severe anemia. Hemoglobin was 7.1. The patient was scheduled to have blood transfusion with dialysis. Urgent dialysis was ordered during this hospitalization. The patient was admitted for further treatment, will be consulted by surgery for acute cholecystitis and he was also found colitis. The patient is a 72-year-old man with history of end-stage renal disease on hemodialysis, diabetes mellitus type 2. CT scan of abdomen and pelvis was done in the emergency room and showed distended gallbladder and acute cholecystitis, as well as colitis. Liver function tests were not elevated. Chest x-ray show no acute disease. The patient was found to have elevated white count. Review of Systems: General: Denies syncope. Eyes: Denies vision changes. Ears, Nose, Mouth, and Throat: Denies sore throat, earache. Respiratory: Denies PND, orthopnea. Cardiovascular: Denies chest pain, palpitation. GI: He has nausea, vomiting, and diarrhea. : Denies dysuria, hematuria. All other systems were reviewed and were all negative. Past Medical History: End-stage renal disease on hemodialysis, diabetes mellitus type 2, insulin dependent, hypertension, hyperlipidemia, BPH, coronary artery disease, atherectomy, dialysis catheter placement, anemia of CKD, renal osteodystrophy. Family History: Mother, heart disease. Social History: Denies tobacco, alcohol, or illicit drugs. Physical Examination: General: Not in acute distress. Alert, oriented x3. Obese. Eyes: Anicteric sclerae. EOMI. Ear, Nose, and Throat: Oral mucosa moist. No pallor. Neck: Supple. No bruits. Lungs: Clear to auscultation bilaterally. Heart: S1, S2. Abdomen: Soft. No rebound. No guarding. There is some right upper quadrant tenderness. Extremities: Slight edema. Chronic dermatitis in both pretibial areas. Neurological: Moving extremities. Cranial nerves intact. Psychiatric: Alert and oriented x3. Normal affect. Laboratory Data: WBC 4.8, hemoglobin 7.1, hematocrit 20.8, platelet count 154,000. PT 13.5, INR 1.238, PTT 46.1. Sodium 136, potassium 3.6, BUN 43, creatinine 4.26, glucose 112. Magnesium 1.8, total bilirubin 0.8, AST 13, ALT less than 10, AP 108. Impression And Plan: 1. Acute cholecystitis, colitis, end-stage renal disease, diabetes mellitus, anemia of chronic kidney disease on hemodialysis. The patient is started for colitis and acute cholecystitis. He will continue renal dose of Rocephin and Flagyl. Blood cultures were obtained. The patient will be consulted by surgical team for acute cholecystitis and possible surgery. The patient has fluid overload, as well as severe anemia. The patient was scheduled today to receive dialysis during this admission and blood transfusion was ordered to be given with dialysis. 2. Diabetes mellitus. Continue insulin sliding scale. 3. Renal osteodystrophy. Patient is on p.o. binders on hold. 4. Anemia of chronic kidney disease. Continue ILENE. Blood transfusion as needed. FADUMO/NURIA Voice ID: [id number] Report ID: [id number] LASHAWN
[2022-11-06 04:58] LABS: AST/SGOT 13 U/L (15-37); Albumin 2.1 g/dL (3.4-5.0); Alkaline Phosphatase 90 U/L (45-117); BUN Blood Urea Nitrogen 28 mg/dL (7-18); Bicarbonate 24 mmol/L (21-32); Bilirubin Total 0.6 mg/dL (0.2-1.0); Glomerular Filtration Rate 22 ml/min (=/>90); Glucose Level 98 mg/dL (74-106); Magnesium 1.9 mg/dL (1.6-2.4); Phosphorus 2.9 mg/dL (2.5-4.9); Potassium 3.3 mmol/L (3.5-5.1); Protein, Total 6.4 g/dL (6.4-8.2); Sodium Level 141 mmol/L (136-145)
[2022-11-06 05:06] LABS: ALT/SGPT < 10 U/L (16-61)
[2022-11-06 05:21] LABS: Absolute Lymphocytes (CBC) 0.5 K/uL (0.7-4.9); Hematocrit 25.7 % (39.6-49.0); Lymphocytes % 12.7 % (15.3-44.8); MCV 83.9 fL (80-100); MPV 7.3 fL (7.6-11.3); RBC Red Blood Cell Count 3.07 M/uL (4.33-5.43)
[2022-11-06] MEDS: INSULIN -REGULAR HUMAN 50 UNIT/0.5 ML ML SQ SCH ×4 (06:00→18:00)
[2022-11-06] MEDS: PANTOPRAZOLE 40 MG INJ IVP SCH (09:00)
--- NOTE | 2022-11-06 14:23 | P.PN ---
Subjective Date of Service: 11/06/22 Chief Complaint: Abdominal pain, nausea and vomiting and diarrhea Patient vomited this morning. He is complaining of nausea. Status post hemodialysis and 1 unit PRBC transfusion yesterday. No recorded fever. No reported diarrhea. Physical Examination - Vital Signs Temperature: 97.2 F Blood Pressure: 148/65 Pulse: 69 Respirations: 16 Pulse Ox (%): 100 - Studies Laboratory Data (last 24 hrs) 11/05/22 14:15: WBC 4.80, Hgb 7.1 L, Hct 20.8 L*, Plt Count 154 11/05/22 13:59: PT 13.5 H, INR 1.23, APTT 46.1 H 11/05/22 13:59: Sodium 136, Potassium 3.6, BUN 43 H, Creatinine 4.26 H, Glucose 112 H, Magnesium 1.8, Total Bilirubin 0.8, AST 13 L, ALT < 10 L, Alkaline Phosphatase 108 Assessment And Plan - Current Problems (Diagnosis) (1) Acute cholecystitis Current Visit: Yes Status: Acute (2) Colitis Current Visit: Yes Status: Acute (3) End-stage renal disease on hemodialysis Current Visit: Yes Status: Acute (4) Diabetes mellitus type 2 in obese Current Visit: Yes Status: Acute (5) Anemia in chronic kidney disease, on chronic dialysis Current Visit: Yes Status: Acute - Plan Continue IV Rocephin and Flagyl. Blood cultures: No growth to date. General surgery consulted to evaluate acute cholecystitis. Dr. Camarillo recommended medical management with antibiotics for now and reevaluation by surgery in a couple of days Start clear liquid diet as tolerated Nephrology is following for hemodialysis. Insulin sliding scale for glucose. Supportive measures with antiemetics and pain management as needed. Patient has a chronic indwelling Solano catheter. He makes only minimal amount of urine, about 45 mill per day per patient. Patient informed that the Solano catheter is not necessary given ESRD on hemodialysis and minimal urine output, there is high risk of infection with an indwelling Solano catheter and recommen ded it to be removed. Patient requesting Solano catheter removal or change in 1 week to be done at the [facility]clinic. Continue IV Protonix.
[2022-11-06] MEDS: CEFTRIAXONE 1,000 MG in NA CHLORIDE 0.9% 50 ML IVPB SCH (14:34)
[2022-11-06] MEDS ORDERED: FOLIC ACID 1 MG TABLET PO ONE (19:14)
--- NOTE | 2022-11-06 19:25 | CON ---
Date of Consultation: 11/06/2022 Diagnoses: Abdominal pain, cholecystitis, anemia, renal failure. History Of Present Illness: This is the case of a 72-year-old patient. Since last , he is n ot feeling that great and he was having some nausea. Before that, he ate some [employer] shrimp. Yester day, he decided to come to the ER and admitted with anemia, acute cholecystitis. The patient feels b william at this moment. He does not hurt when you press that abdomen. He said that he just tired of b eing nauseous. No guarding. No rebound. He denies any recent traveling out of the country. Denies any family member sick at home. He does not recall the last colonoscopy. Allergies: LISINOPRIL. Past Medical History: Includes end-stage renal disease, on hemodialysis, diabetes, hypertension, cor onary artery disease. Past Surgical History: Includes right chest dialysis catheters, endarterectomies. Social History: He does not smoke. He does not drink alcohol. Family History: Heart disease. Review of Systems: Nausea, occasional vomiting. No dysuria, hematuria, hematochezia, or melena. No jaundice. Ten poin ts otherwise unremarkable. Physical Examination: General: The patient is awake, alert. HEENT: Pupils are equal and reactive. Anicteric. NECK: Supple. Chest: Clear. Abdomen: Soft and depressible. No guarding or rebound. Mild tenderness on the upper abdomen. No M urphy signs. No peritoneal signs. No distention at this moment. Extremities: Good capillary refill. Laboratory Data: Blood work reviewed including total bilirubin normal. Ultrasound shows finding of colitis and acute cholecystitis. Assessment: A 72-year-old patient, came here initially with nausea, vomiting. He has been feeling b ad since last Monday after he ate some shrimp from [employer]. He came to the hospital. He has diagnos is of colitis, also some distention of the gallbladder, may be cholecystitis, although at this moment he does not have any Urena sign and there is not really peritonitis. He just tired of being nauseo us and vomiting every now and then. He came also with anemia, they are correcting that. He has enedelia l failure. They are giving him hemodialysis and also they are working with sure. We are going to gi ve him some antibiotics to see if any by chance he improve with the antibiotics, although he understa nds the options of laparoscopic possible open cholecystectomy if he clinically gets worse with benefi ts, alternatives, and risks including, but not limited to infection, bleeding, damage to adjacent str uctures, anesthesia complication, AK and even . He also understands for colitis. He has to stew ck with his primary doctor when was his last colonoscopy because it was done not recently. He may ne ed a colonoscopy to rule out any pathology on the colon. LAYTON/NURIA Voice ID: [id number] Report ID: [id number]
[2022-11-06] MEDS: ATORVASTATIN 80 MG TAB PO SCH (20:10)
[2022-11-06] MEDS: carvediloL 3.125 MG TAB PO SCH (20:10)
[2022-11-06] MEDS: TOPIRAMATE 25 MG TAB PO SCH (20:10)
[2022-11-06] MEDS: TAMSULOSIN 0.4 MG SR CAP PO SCH (20:11)
[2022-11-07] MEDS: HEPARIN 5000 UNIT/ML 1 ML VIAL SQ SCH ×5 (01:06→17:39)
[2022-11-07] MEDS: METRONIDAZOLE 500mg IVPB 500 MG/100 ML BAG IV SCH ×3 (01:06→17:44)
--- NOTE | 2022-11-07 01:29 | PN ---
Date of Progress Note: 11/06/2022 Chief Complaint: End-stage renal disease on hemodialysis. History Of Present Illness: Patient is admitted to the hospital because he developed abdominal pain, fever, vomiting, nausea and diarrhea. He was found to have borderline hypotension and severe anemia . He received blood transfusion with dialysis yesterday. Procedure was well tolerated. Patient is on antibiotics for acute cholecystitis and surgical team is consulted for possible cholecystectomy. The patient had CT scan done, which showed changes significant for acute cholecystitis as well as col itis. Review of Systems: Denies fever or chills. Physical Examination: Lungs: Clear to auscultation bilaterally. Heart: S1, S2. Abdomen: Soft. Extremities: Slight edema. Impression And Plan: 1.End-stage renal disease. Dialysis will be scheduled 3 times per week. The patient does not have overt fluid overload. Electrolytes are stable. 2.Anemia due to chronic kidney disease. Monitor hemoglobin level. I recommend workup to rule out G I bleeding. The patient currently is on Rocephin and Flagyl for possible colitis and cholecystitis. 3.Diabetes mellitus. Continue insulin per sliding scale. 4.Anemia of chronic kidney disease. Continue ILENE and plan blood transfusion as needed. 5.Hypertension. Continue IV medication. FADUMO/LAKSHMIL Voice ID: [id number] Report ID: [id number]
[2022-11-07] MEDS: INSULIN -REGULAR HUMAN 50 UNIT/0.5 ML ML SQ SCH ×4 (06:00→18:00)
[2022-11-07 06:13] LABS: Absolute Lymphocytes (CBC) 0.5 K/uL (0.7-4.9); Hematocrit 21.9 % (39.6-49.0); Lymphocytes % 15.5 % (15.3-44.8); MCV 83.7 fL (80-100); MPV 7.1 fL (7.6-11.3); RBC Red Blood Cell Count 2.62 M/uL (4.33-5.43)
[2022-11-07 06:33] LABS: BUN Blood Urea Nitrogen 33 mg/dL (7-18); Bicarbonate 25 mmol/L (21-32); Glucose Level 126 mg/dL (74-106); Sodium Level 141 mmol/L (136-145)
[2022-11-07 06:34] LABS: ALT/SGPT < 10 U/L (16-61); AST/SGOT 12 U/L (15-37); Albumin 2.6 g/dL (3.4-5.0); Alkaline Phosphatase 81 U/L (45-117); Bilirubin Total 0.5 mg/dL (0.2-1.0); Glomerular Filtration Rate 15 ml/min (=/>90); Protein, Total 6.2 g/dL (6.4-8.2)
[2022-11-07 06:35] LABS: Potassium 2.9 mmol/L (3.5-5.1)
[2022-11-07] MEDS: ONDANSETRON 4 MG/2 ML VIAL IV PRN ×2 (08:37→17:45)
[2022-11-07] MEDS: CEFTRIAXONE 1,000 MG in NA CHLORIDE 0.9% 50 ML IVPB SCH (08:38)
[2022-11-07 08:43] LABS: Blood Morphology Comment NOT SEEN (NOT SEEN); Platelet Estimate DECR; White Blood Cell Scan OK (OK)
[2022-11-07] MEDS: carvediloL 3.125 MG TAB PO SCH ×2 (08:46→21:03)
[2022-11-07] MEDS: PANTOPRAZOLE 40 MG INJ IVP SCH (08:47)
[2022-11-07] MEDS ORDERED: POTASSIUM CL SA 10 MEQ TAB PO ONE (09:00)
[2022-11-07] MEDS: ASCORBIC ACID 500 MG TABLET PO SCH (09:02)
[2022-11-07] MEDS: ISOSORBIDE MONO SR 60 MG TAB PO SCH (09:02)
[2022-11-07] MEDS: FINASTERIDE 5 MG TAB PO SCH (09:02)
--- NOTE | 2022-11-07 11:56 | PN ---
Date of Progress Note: 11/07/2022 Diagnosis: Colitis and acute cholecystitis. Subjective: The patient is doing better. No nausea, vomiting today. Objective: Chest: Clear. Abdomen: Soft and depressible. No Urena sign. No peritonitis. Plan: We are going to advance his diet. Continue the antibiotics. HM/MODL Voice ID: [id number] Report ID: [id number]
--- NOTE | 2022-11-07 15:14 | P.PN ---
Subjective Date of Service: 11/07/22 Chief Complaint: Abdominal pain, nausea and vomiting and diarrhea Patient is experiencing intermittent nausea He denies abdominal pain No recorded fever. No reported diarrhea. Physical Examination - Vital Signs Temperature: 96.9 F Blood Pressure: 144/70 Pulse: 68 Respirations: 16 Pulse Ox (%): 100 - Physical Exam General: Alert, In no apparent distress HEENT: Mucous membr. moist/pink Neck: Supple, JVD not distended Respiratory: Clear to auscultation bilaterally, Normal air movement Cardiovascular: Regular rate/rhythm, Normal S1 S2, Edema (Bilateral lower extremities) Gastrointestinal: Normal bowel sounds, Soft and benign, Non-distended, No tenderness Musculoskeletal: No swelling Integumentary: Other (Sacral decubitus ulcer) Neurological: Normal speech Assessment And Plan - Current Problems (Diagnosis) (1) Acute cholecystitis Current Visit: Yes Status: Acute (2) Colitis Current Visit: Yes Status: Acute (3) End-stage renal disease on hemodialysis Current Visit: Yes Status: Acute (4) Diabetes mellitus type 2 in obese Current Visit: Yes Status: Acute (5) Anemia in chronic kidney disease, on chronic dialysis Current Visit: Yes Status: Acute - Plan Continue IV Rocephin and Flagyl. Blood cultures: No growth to date. General surgery consulted to evaluate acute cholecystitis. Dr. Camarillo recommended medical management with antibiotics at this time. Dr. Camarillo recommend to advance diet as tolerated. Continue clear liquid diet and advance as tolerated. Nephrology is following for hemodialysis. Insulin sliding scale for glucose. Supportive measures with antiemetics and pain management as needed. Patient has a chronic indwelling Mitchell catheter. He makes only minimal amount of urine, about 45 mill per day per patient. Patient informed that the Mitchell catheter is not necessary given ESRD on hemodialysis and minimal urine output, there is high risk of infection with an indwelling Mitchell catheter and recommended it to be removed. Patient requesting Mitchell catheter discontinuation only to be done at the [place] hospital/clinic. Recommend change today the current mitchell catheter which was inserted about 1 month ago Continue IV Protonix. Electrolytes management per nephrology.
[2022-11-07] MEDS: allopurinoL 100 MG TAB PO SCH (17:40)
--- NOTE | 2022-11-07 20:23 | PN ---
Date of Progress Note: 11/07/2022 Chief Complaint: End-stage renal disease, disease on hemodialysis. Subjective: The patient is admitted to the hospital because he developed abdominal pain, fever, vomi ting, nausea, and diarrhea. He was found to have borderline hypotension and dialysis center referred him to the emergency room and dialysis was done in the hospital. He had dialysis done on Monday d uring this hospitalization and procedure was well tolerated. Review of Systems: The patient is feeling better. Physical Examination: Lungs: Clear to auscultation bilaterally. Heart: S1, S2. Abdomen: Soft. Extremities: Slight edema. Impression And Plan: 1.End-stage renal disease. Next dialysis tomorrow. 2.Anemia due to chronic kidney disease. The patient received blood transfusion. Continue ILENE. 3.Colitis, cholecystitis. Continue antibiotics. Surgical Team is following. 4.Diabetes mellitus. Continue insulin. FADUMO/MODL Voice ID: [id number] Report ID: [id number]
--- NOTE | 2022-11-07 20:54 | P.PN ---
Date of Service: 11/08/22 Subjective: abd discomfort overnight, difficult to get comfortable +nausea; tried clears yesterday pt continues with generalized weakness ROS: A complete review of systems was performed and is negative except as mentioned above Physical Exam: Gen: uncomfortable appearing, pale CV: regular rate & rhythm, b/; pedal edema Pulm: non-labored respirations, diminished at bases bilaterally Abd: soft, TTP in RUQ, no rebound Neuro: normal speech, normal affect, moves all extremities vitals reviewed Problem List Acute cholecystitis Colitis ESRD on HD HTN DM2 Anemia in chronic kidney disease, on chronic dialysis Continue IV Rocephin and Flagyl. Blood cultures: No growth to date. General surgery consulted to evaluate acute cholecystitis continued with pain despite medical management plan for OR 11/09 for [facility] simeon NPO @ [place] Nephrology is following for hemodialysis. 2u PRBC ordered with HD on 11/08, hgb: 6.9j Insulin sliding scale for glucose. Supportive measures with antiemetics and pain management as needed. Patient has a chronic indwelling Mitchell catheter. He makes only minimal amount of urine, about 45 mill per day per patient. Patient informed that the Mitchell catheter is not necessary given ESRD on hemodialysis and minimal urine output, there is high risk of infection with an indwelling Mitchell catheter and recommended it to be removed. Patient requesting Mitchell catheter discontinuation only to be done at the [place] hospital/clinic. mitchell exchanged on 11/07 Continue IV Protonix. Code: full Dispo: home, ~3 days Time Spent Managing Pts Care (In Minutes): 35
[2022-11-07] MEDS: ATORVASTATIN 80 MG TAB PO SCH (21:00)
[2022-11-07] MEDS: TAMSULOSIN 0.4 MG SR CAP PO SCH (21:03)
[2022-11-07] MEDS: TOPIRAMATE 25 MG TAB PO SCH (21:03)
[2022-11-08] MEDS: METRONIDAZOLE 500mg IVPB 500 MG/100 ML BAG IV SCH ×3 (01:34→16:44)
[2022-11-08] MEDS: HEPARIN 5000 UNIT/ML 1 ML VIAL SQ SCH ×3 (01:36→16:47)
[2022-11-08] MEDS: INSULIN -REGULAR HUMAN 50 UNIT/0.5 ML ML SQ SCH ×4 (06:00→16:51)
[2022-11-08 06:02] LABS: Absolute Lymphocytes (CBC) 0.5 K/uL (0.7-4.9); Lymphocytes % 15.7 % (15.3-44.8); MCV 83.1 fL (80-100); MPV 7.5 fL (7.6-11.3); RBC Red Blood Cell Count 2.41 M/uL (4.33-5.43)
[2022-11-08 06:23] LABS: AST/SGOT 8 U/L (15-37); Albumin 2.5 g/dL (3.4-5.0); Alkaline Phosphatase 80 U/L (45-117); BUN Blood Urea Nitrogen 37 mg/dL (7-18); Bicarbonate 25 mmol/L (21-32); Bilirubin Total 0.4 mg/dL (0.2-1.0); Glomerular Filtration Rate 13 ml/min (=/>90); Glucose Level 122 mg/dL (74-106); Magnesium 1.7 mg/dL (1.6-2.4); Potassium 3.5 mmol/L (3.5-5.1); Protein, Total 5.9 g/dL (6.4-8.2); Sodium Level 141 mmol/L (136-145)
[2022-11-08 06:44] LABS: ALT/SGPT < 10 U/L (16-61)
[2022-11-08 07:48] LABS: Basophilic Stippling 1+; Blood Morphology Comment NOTED (NOT SEEN); Platelet Estimate DECR; White Blood Cell Scan OK (OK)
[2022-11-08] MEDS: ONDANSETRON 4 MG/2 ML VIAL IV PRN ×3 (09:33→20:32)
[2022-11-08] MEDS: PANTOPRAZOLE 40 MG INJ IVP SCH ×2 (09:35→22:57)
[2022-11-08] MEDS: CEFTRIAXONE 1,000 MG in NA CHLORIDE 0.9% 50 ML IVPB SCH (09:37)
[2022-11-08] MEDS: carvediloL 3.125 MG TAB PO SCH ×2 (09:45→20:36)
[2022-11-08] MEDS: FINASTERIDE 5 MG TAB PO SCH (10:15)
[2022-11-08] MEDS: ISOSORBIDE MONO SR 60 MG TAB PO SCH (10:16)
[2022-11-08] MEDS: ASCORBIC ACID 500 MG TABLET PO SCH (10:16)
[2022-11-08] MEDS ORDERED: ALBUMIN HUMAN 25% 100 ML IV ONE (12:36)
--- NOTE | 2022-11-08 13:34 | PN ---
Date of Progress Note: 11/08/2022 Subjective: Patient was admitted with hypotension on dialysis. Patient has been found with low blood pressure. Patient is maintained on carvedilol and isosorbide, required for midodrine before dialysis. Physical Examination: Vital Signs: When I saw the patient, 166/72 pulse of 62, afebrile. Chest: Clear to auscultation. Heart: S1, S2 regular. Abdomen: Soft, nontender. Extremities: No edema. Neurologic: Alert. Nonfocal. Laboratory Data: WBC 3.4, H and H 6.9/20. Sodium 141, potassium 3.5, bicarb 25, BUN 37, creatinine 4.5, calcium 8.4. Current Medications: The patient is on include: 1. Periactin. 2. Metronidazole. 3. Epogen. 4. Atorvastatin 80. 5. Carvedilol . 6. Isosorbide 60 daily. 7. Tylenol. 8. Zofran. 9. Allopurinol. 10. Finasteride. Assessment And Plan: 1. End-stage renal disease. We will continue the patient on dialysis. Patient is scheduled for dialysis today. We will dialyze the patient on low blood flow with sodium module and we will transfuse 2 units of blood with dialysis and we will follow up. 2. I am going to go ahead and use sodium module to avoid low blood pressure on the dialysis. 3. Hypertension. Currently, blood pressure is not controlled plus the patient is known to have low blood pressure on the dialysis. I am going to decrease isosorbide and we will dialyze the patient on sodium module. We will transfuse. 4. Anemia transfusion today. We will arrange for 2 units of blood transfusion. We will change Epogen to IV with dialysis. 5. Hypokalemia. Patient is going to be dialyzed on high potassium bath. 6. Coronary artery disease as by Cardiology. Time spent examining the patient [id number] reviewing data lab and radiology discussing the case with the patient placing order discussing the case with the presentation team member including nursing discussing the case with the hospitalist more than 35-minute KUSUM/NURIA Voice ID: [id number] Report ID: [id number] LASHAWN
[2022-11-08] MEDS ORDERED: NA CHLORIDE 0.9% 250 ML IV SCH (14:00)
[2022-11-08] MEDS: ATORVASTATIN 80 MG TAB PO SCH (20:32)
[2022-11-08] MEDS: TOPIRAMATE 25 MG TAB PO SCH (20:32)
[2022-11-08] MEDS: TAMSULOSIN 0.4 MG SR CAP PO SCH (20:32)
[2022-11-08] MEDS: HYDRALAZINE HCL 20 MG/ML VIAL IV PRN (21:31)
[2022-11-08] MEDS ORDERED: NA CHLORIDE 0.9% 250 ML ONE (22:08)
[2022-11-08] MEDS ORDERED: PROMETHAZINE INJ 25 MG/ML AMP IV ONE (22:53)
[2022-11-09] MEDS: HEPARIN 5000 UNIT/ML 1 ML VIAL SQ SCH ×3 (01:00→16:29)
[2022-11-09] MEDS: METRONIDAZOLE 500mg IVPB 500 MG/100 ML BAG IV SCH ×3 (01:14→16:29)
[2022-11-09] MEDS: ONDANSETRON 4 MG/2 ML VIAL IV PRN ×3 (02:30→20:44)
[2022-11-09] MEDS: HYDRALAZINE HCL 20 MG/ML VIAL IV PRN (03:50)
[2022-11-09] MEDS ORDERED: PROMETHAZINE INJ 25 MG/ML AMP IV ONE (05:24)
[2022-11-09] MEDS: INSULIN -REGULAR HUMAN 50 UNIT/0.5 ML ML SQ SCH ×4 (06:00→16:36)
[2022-11-09] MEDS ORDERED: PANTOPRAZOLE 40MG TABLET PO SCH (06:30)
--- NOTE | 2022-11-09 06:59 | P.PN ---
Date of Service: 11/09/22 Subjective: nauseated overnight, uncomfortable for OR today for lap blanco s/p 2u PRBCs ROS: A complete review of systems was performed and is negative except as mentioned above Physical Exam: Gen: uncomfortable appearing, pale CV: regular rate & rhythm, b/l pedal edema Pulm: non-labored respirations, diminished at bases bilaterally Abd: soft, TTP in RUQ, no rebound Neuro: normal speech, normal affect, moves all extremities vitals reviewed Problem List Acute cholecystitis Colitis ESRD on HD HTN DM2 Anemia in chronic kidney disease, on chronic dialysis Continue IV Rocephin and Flagyl. Blood cultures: No growth to date. General surgery consulted to evaluate acute cholecystitis continued with pain despite medical management plan for OR 11/09 for lap blanco Nephrology is following for hemodialysis. 2u PRBC ordered with HD on 11/08, hgb: 6.9 and improved to 9 Insulin sliding scale for glucose. Supportive measures with antiemetics and pain management as needed. Patient has a chronic indwelling Mitchell catheter. He makes only minimal amount of urine, about 45 mill per day per patient. Patient informed that the Mitchell catheter is not necessary given ESRD on hemodialysis and minimal urine output, there is high risk of infection with an indwelling Mitchell catheter and recommended it to be removed. Patient requesting Mitchell catheter discontinuation only to be done at the [place] hospital/clinic. mitchell exchanged on 11/07 Continue Protonix. Code: full Dispo: home, ~1-2 days Time Spent Managing Pts Care (In Minutes): 35
[2022-11-09 07:25] LABS: Hematocrit 27.3 % (39.6-49.0); MCV 86.1 fL (80-100); MPV 7.2 fL (7.6-11.3); RBC Red Blood Cell Count 3.18 M/uL (4.33-5.43)
[2022-11-09 07:37] LABS: Albumin 2.9 g/dL (3.4-5.0); Phosphorus 2.9 mg/dL (2.5-4.9); Potassium 3.6 mmol/L (3.5-5.1)
[2022-11-09] MEDS: NA CHLORIDE 0.9% 1,000 ML ONE ×2 (08:00→08:22)
[2022-11-09] MEDS ORDERED: PROMETHAZINE INJ 25 MG/ML AMP ONE ×2 (08:11→10:45)
[2022-11-09] MEDS ORDERED: ROCURONIUM 50 MG/5 ML VIAL IV ONE (08:47)
[2022-11-09] MEDS ORDERED: ONDANSETRON 4 MG/2 ML VIAL ONE (08:47)
[2022-11-09] MEDS ORDERED: propofoL 200 MG/20 ML VIAL IV ONE (08:47)
[2022-11-09] MEDS ORDERED: FENTANYL CITR 100 MCG/2 ML ONE (08:47)
[2022-11-09] MEDS ORDERED: ETOMIDATE 20 MG/10 ML VIAL IV ONE (08:48)
[2022-11-09] MEDS ORDERED: LIDOCAINE 2% MPF 5 ML VIAL ONE (08:48)
[2022-11-09] MEDS: PANTOPRAZOLE 40 MG INJ IVP SCH (09:00)
[2022-11-09] MEDS: ASCORBIC ACID 500 MG TABLET PO SCH (09:00)
[2022-11-09] MEDS: ISOSORBIDE MONO SR 30 MG TAB PO SCH (09:00)
[2022-11-09] MEDS: carvediloL 3.125 MG TAB PO SCH ×2 (09:00→21:00)
[2022-11-09] MEDS: FINASTERIDE 5 MG TAB PO SCH (09:00)
[2022-11-09] MEDS: CEFTRIAXONE 1,000 MG in NA CHLORIDE 0.9% 50 ML IVPB SCH (09:08)
[2022-11-09] MEDS ORDERED: NA CHLORIDE 0.9% 500 ML ONE (09:09)
[2022-11-09] MEDS ORDERED: NS 0.9% VIAL 10 ML ONE (10:09)
[2022-11-09] MEDS ORDERED: Phenylephrine HCl 10 MG/ML 1 ML VIAL ONE (10:09)
--- NOTE | 2022-11-09 10:28 | P.BOP ---
Preoperative diagnosis: Acute cholecystitis, symptomatic cholelithiasis, ESRD on HD Postoperative diagnosis: same, intrabdominal adhesions Primary procedure: Laparoscopic cholecystectomy Secondary procedure: laparoscopic lysis of adhesions Corporate Strategy Analyst: LILLIE COTA ([employer]EL[employer]) Estimated blood loss: <50cc Specimen: gb Findings: intrabdominal adhesions RUQ, as above Anesthesia: General Complications: None Drain(s): GENEVIEVE drain Transferred to: Recovery Room Condition: Good
[2022-11-09] MEDS ORDERED: NEOSTIGMINE 1 MG/ML -5 ML ONE (10:35)
[2022-11-09] MEDS ORDERED: GLYCOPYRROLATE 0.2 MG/ML SYR ONE (10:35)
[2022-11-09] MEDS ORDERED: SUCCINYLCHOLINE 20 MG/ML (10 ML) IV ONE (10:53)
--- NOTE | 2022-11-09 13:02 | OP ---
Date of Procedure: 11/09/2022 Surgeon: Tobi Camarillo MD Snowboard Designer: Annie Palacio. Preoperative Diagnoses: Acute cholecystitis, symptomatic cholelithiasis, right upper quadrant abdomi nal pain, end-stage renal disease, on hemodialysis, anemia. Postoperative Diagnoses: Acute cholecystitis, symptomatic cholelithiasis, right upper quadrant abdom inal pain, end-stage renal disease, on hemodialysis, anemia plus intraabdominal adhesions. Procedures: 1.Laparoscopic cholecystectomy. 2.Laparoscopic lysis of adhesions. Estimated Blood Loss: Less than 50 cc. Specimen: Gallbladder. Findings: Distended, thickened gallbladder with intraabdominal adhesions mainly of the stomach again st the liver and stomach, against the gallbladder and omentum, also against the gallbladder and the l iver. Those have to be removed in order for us to proceed with the case and we used LigaSure to help us in that. This patient is a dialysis patient with a history of anemia. To minimize bleeding, we used LigaSure. Anesthesia: General plus local. Drains: GENEVIEVE drain #10 in the right upper side. Indication: This is the case of a male, who comes to us with multiple medical problems including acu te cholecystitis and symptomatic cholelithiasis. He tried conservative treatment first by trying to advance some diet, his antibiotics, but today it just did not improve, got worse and he was explained once again the options of laparoscopic possible open cholecystectomy with benefits, alternatives, an d risks including, but not limited to infection, bleeding, damage to adjacent structures, anesthesia complication, choledocholithiasis, bile leak, pancreatitis, [place], and even . He also understands this may not relieve any symptoms. He might need more than one surgical intervention, and he decided to sign the consent. Procedure In Detail: The patient was brought to the operating room, placed in supine position. Anes thesia was done without complication. Abdominal area was prepped and draped in the usual sterile fas hion. Marcaine 0.5% injected for local anesthetic followed by sharp incision of the skin in the supr aumbilical region. The incision was carried down to fascia, which was opened under direct vision. P eritoneum was encountered, opened under direct vision. Vicryl #1 placed inside the fascia. Glenys t rocar was carefully introduced. Pneumoperitoneum was obtained. I placed 3 more trocars, 5 mm each o ne of them in the epigastric right upper quadrant area under direct visualization. We visualized the area of the right upper quadrant. Once again, we have too many adhesions of omentum and stomach and to the liver and gallbladder. In order for us to see that area, we have to place the patient in rev erse in Trendelenburg and right upper quadrant off and then used LigaSure to take those adhesions cassie n. This in a sequential fashion allowed me to visualize the area of the gallbladder and then proceed with surgery. A grasper ws placed in the fundus of the gallbladder, another grasper in the infundib ulum, retracting the gallbladder in the inferolateral fashion, exposing the triangle of Calot, and ob taining critical view. The cystic duct and cystic artery were clearly isolated, freed circumferentia lly and a connection between those and the gallbladder were clearly identified. I proceeded to ligat e those by using at least 3 clips proximal, 1 clip distal, ligation in middle. Same was done with th e cystic artery. No bile leak, no bleeding. The gallbladder was removed from liver using Bovie caut erizer, nice and slow since the patient is very friable in the gallbladder fossa. As the gallbladder was removed, we proceeded to cauterize the gallbladder fossa and then after that, we proceeded to re move the gallbladder with an EndoCatch through the umbilical incision. The area was inspected once a gain. We spent time in making sure that gallbladder fossa was nice and dry, but still I believe a GENEVIEVE drain should be left in that area, it is all inflamed. So, the GENEVIEVE drain was left in place and comin g out through 1 of the trocar sites, secured in place with 3-0 nylon. We checked the area once again . Clips were intact. No bile leak. No bleeding. At that moment, I proceeded to remove the trocars under direct vision. Once again, before that, we checked the area of the lysis of adhesions with no bleeding. We removed the trocars under direct vision. Deflated pneumoperitoneum, closed the fascia with #1 Vicryl. Irrigated subcutaneous tissue, closed that with 3-0 chromic and skin with rashmi. Sponge count, instrument counts correct. The patient tolerated the procedure well. The patient was sent to recovery in stable condition. GENEVIEVE was connected to bulb suction. LAYTON/NURIA Voice ID: [id number] Report ID: [id number]
--- NOTE | 2022-11-09 14:53 | PN ---
Date of Progress Note: 11/09/2022 Subjective: Patient was admitted with low blood pressure yesterday, could not tolerate dialysis. Patient received transfusion. Physical Examination: Vital Signs: Blood pressure 141/59, pulse of 65. Chest: Clear to auscultation. Heart: S1, S2 regular. Abdomen: Mild tenderness on the surgery side. Extremities: No edema. Neuro: Alert. No focality. Laboratory Data: Hemoglobin 9. Sodium 138, potassium 3.6, bicarb 24, BUN 36, creatinine 4.3, calcium 8.5. Current Medications: The patient is on include: 1. Metronidazole. 2. Ceftriaxone. 3. Heparin. 4. Carvedilol . 5. Isosorbide. 6. Atorvastatin. Assessment And Plan: 1. End-stage renal disease. Patient had surgery today. We will postpone dialysis until tomorrow and we will follow up. 2. Hypertension. Occasional low blood pressure on dialysis. We will keep minimal blood pressure medication. 3. Cholecystitis. Continue antibiotic. Follow up with Surgery. 4. Cirrhosis. We will continue supportive care. JEFF Voice ID: [id number] Report ID: [id number] MTDD
[2022-11-09 14:54] LABS: Specific Gravity 1.021 (1.005-1.030); Urine Bacteria <20 /HPF (<20); Urine Bilirubin NEGATIVE (Negative); Urine Blood 3+ (OVER) (Negative); Urine Clarity Extremely Turbid (Clear); Urine Color Orange (Yellow); Urine Crystals Unidentified Few /HPF (None Seen); Urine Glucose NEGATIVE (Negative); Urine Mucus Slight /HPF (None Seen); Urine Protein 2+ (Negative); Urine RBC >50 /HPF (None Seen); Urine Urobilinogen Normal (Normal); Urine WBC Clump Moderate /HPF (None Seen); Urine pH 5.5 (5.0-7.0)
[2022-11-09] MEDS: allopurinoL 100 MG TAB PO SCH (16:29)
[2022-11-09] MEDS: TAMSULOSIN 0.4 MG SR CAP PO SCH (21:00)
[2022-11-09] MEDS: TOPIRAMATE 25 MG TAB PO SCH (21:00)
[2022-11-09] MEDS: ATORVASTATIN 80 MG TAB PO SCH (21:00)
[2022-11-09] MEDS: HYDROCODONE/APAP 5/325 MG TAB PO PRN (21:36)
[2022-11-09] MEDS: PROMETHAZINE INJ 25 MG/ML AMP IV PRN (22:07)
[2022-11-10] MEDS: HYDROCODONE/APAP 5/325 MG TAB PO PRN ×3 (00:25→21:57)
[2022-11-10] MEDS: METRONIDAZOLE 500mg IVPB 500 MG/100 ML BAG IV SCH ×3 (00:31→16:17)
[2022-11-10] MEDS: HEPARIN 5000 UNIT/ML 1 ML VIAL SQ SCH (01:00)
[2022-11-10] MEDS: ONDANSETRON 4 MG/2 ML VIAL IV PRN ×4 (02:13→20:07)
[2022-11-10] MEDS: PROMETHAZINE INJ 25 MG/ML AMP IV PRN ×2 (03:47→22:05)
[2022-11-10 05:42] LABS: Hematocrit 29.5 % (39.6-49.0); MCV 85.7 fL (80-100); MPV 8.2 fL (7.6-11.3); RBC Red Blood Cell Count 3.44 M/uL (4.33-5.43)
[2022-11-10 05:57] LABS: Albumin 2.6 g/dL (3.4-5.0); Bilirubin Direct 0.2 mg/dL (0-0.2); Bilirubin Total 0.6 mg/dL (0.2-1.0); Phosphorus 3.4 mg/dL (2.5-4.9); Potassium 3.7 mmol/L (3.5-5.1); Protein, Total 5.9 g/dL (6.4-8.2)
[2022-11-10] MEDS: INSULIN -REGULAR HUMAN 50 UNIT/0.5 ML ML SQ SCH ×4 (06:00→17:38)
--- NOTE | 2022-11-10 06:50 | P.PN ---
Date of Service: 11/10/22 Subjective: nausea and RUQ pain not much different compared to pre-op intermittent dizziness, no palpitations ROS: A complete review of systems was performed and is negative except as mentioned above Physical Exam: Gen: NAD CV: regular rate & rhythm, b/l pedal edema Pulm: non-labored respirations, diminished at bases bilaterally Abd: soft, TTP in RUQ, no rebound Neuro: normal speech, normal affect, moves all extremities vitals reviewed Problem List Acute cholecystitis, cholelithiasis Colitis ESRD on HD HTN DM2 Anemia in chronic kidney disease, on chronic dialysis Continue IV Rocephin and Flagyl. Blood cultures: No growth to date. General surgery consulted to evaluate acute cholecystitis continued with pain despite medical management s/p lap blanco on 11/09 continues with nausea/pain LFTs ok, trend Nephrology is following for hemodialysis. 2u PRBC ordered with HD on 11/08, hgb: 6.9 and improved to 9 Insulin sliding scale for glucose. Supportive measures with antiemetics and pain management as needed. Patient has a chronic indwelling Mitchell catheter. He makes only minimal amount of urine, about 45 mill per day per patient. Patient informed that the Mitchell catheter is not necessary given ESRD on hemodialysis and minimal urine output, there is high risk of infection with an indwelling Mitchell catheter and recommended it to be removed. Patient requesting Mitchell catheter discontinuation only to be done at the [place] [facility]inic. mitchell exchanged on 11/07 Continue Protonix. Code: full Dispo: home, ~1-2 days Time Spent Managing Pts Care (In Minutes): 25
[2022-11-10] MEDS: carvediloL 3.125 MG TAB PO SCH ×2 (09:00→21:56)
[2022-11-10] MEDS: FINASTERIDE 5 MG TAB PO SCH (09:00)
[2022-11-10] MEDS: ISOSORBIDE MONO SR 30 MG TAB PO SCH (09:00)
[2022-11-10] MEDS: ASCORBIC ACID 500 MG TABLET PO SCH (09:00)
[2022-11-10] MEDS: CEFTRIAXONE 1,000 MG in NA CHLORIDE 0.9% 50 ML IVPB SCH (09:07)
[2022-11-10] MEDS: PANTOPRAZOLE 40 MG INJ IVP SCH (09:09)
[2022-11-10] MEDS: HYDRALAZINE HCL 20 MG/ML VIAL IV PRN (12:38)
--- NOTE | 2022-11-10 17:29 | PN ---
Date of Progress Note: 11/10/2022 Subjective: The patient was admitted with abdominal pain, low blood pressure on dialysis. The patient found to have cholecystitis. The patient is status post cholecystectomy. The patient today complaining from nausea without any vomiting. Last dialysis 3 days ago. Physical Examination: Vital Signs: Blood pressure 178/83, pulse of 71, afebrile. Chest: Clear to auscultation. Heart: S1, S2. Systolic murmur. Abdomen: Dressing with drainage from the right upper quadrant, bloody serosanguineous. Extremities: Trace edema. Neurologic: Alert. No focality. Laboratory Data: WBC 5.2, H and H 9.9/29.5. Sodium 141, potassium 3.7, bicarb 22, BUN 42, creatinine 4.7, calcium 8.7, phosphorus 3.4. Current Medications: The patient on include; 1. Ceftriaxone. 2. Metronidazole. 3. Promethazine. 4. Flomax. 5. Epogen. 6. Atorvastatin. 7. Carvedilol 3.125. 8. Zofran. 9. Finasteride. 10. Allopurinol. Assessment And Plan: 1. End-stage renal disease with occasional low blood pressure on dialysis. I am going to continue the patient on dialysis. We will schedule the patient for dialysis today. 2. Hypertension with occasional low blood pressure on dialysis. I will follow up the blood pressure with dialysis today. 3. Cholecystitis, status post cholecystectomy. Follow up with Surgery. 4. Gastroenteritis. We will continue symptomatic treatment. 5. Diabetes as by primary. 6. Hypokalemia. Will be corrected with dialysis. No need for supplement. Time spent examining the patient [id number] reviewing data lab and radiology discussing the case with the patient placing order discussing the case with the care team assistant including nursing discussing the case with the hospitalist more than 35-minute KUSUM/NURIA Voice ID: [id number] Report ID: [id number] LASHAWN
[2022-11-10] MEDS: ALBUMIN HUMAN 25% 100 ML IV ONE ×2 (19:44→20:09)
[2022-11-10] MEDS: EPOETIN ALFA 10,000 UNIT/ML VIAL IV SCH (19:45)
[2022-11-10] MEDS: ATORVASTATIN 80 MG TAB PO SCH (21:00)
[2022-11-10] MEDS: TAMSULOSIN 0.4 MG SR CAP PO SCH (21:55)
[2022-11-10] MEDS: TOPIRAMATE 25 MG TAB PO SCH (22:11)
[2022-11-11] MEDS: METRONIDAZOLE 500mg IVPB 500 MG/100 ML BAG IV SCH ×3 (00:37→16:19)
[2022-11-11 05:30] LABS: Hematocrit 28.6 % (39.6-49.0); MCV 85.3 fL (80-100); MPV 8.2 fL (7.6-11.3); RBC Red Blood Cell Count 3.35 M/uL (4.33-5.43)
[2022-11-11 05:40] LABS: Albumin 2.9 g/dL (3.4-5.0); Bilirubin Direct 0.2 mg/dL (0-0.2); Bilirubin Total 0.6 mg/dL (0.2-1.0); Phosphorus 2.6 mg/dL (2.5-4.9); Potassium 3.9 mmol/L (3.5-5.1); Protein, Total 6.3 g/dL (6.4-8.2)
[2022-11-11] MEDS: INSULIN -REGULAR HUMAN 50 UNIT/0.5 ML ML SQ SCH ×6 (06:00→20:55)
[2022-11-11 06:22] LABS: Blood Morphology Comment NOT SEEN (NOT SEEN); Platelet Estimate DECR; White Blood Cell Scan OK (OK)
--- NOTE | 2022-11-11 07:17 | P.PN ---
Date of Service: 11/11/22 Subjective: continues with intermittent nausea dizziness - mostly triggered by movement / change in position abdominal pain ROS: A complete review of systems was performed and is negative except as mentioned above Physical Exam: Gen: uncomfortable, nauseous CV: regular rate & rhythm, no edema Pulm: non-labored respirations, diminished at bases bilaterally Abd: soft, TTP in RUQ, moderate TTP in epigastrium, pinkish tinged GENEVIEVE drainage Neuro: normal speech, normal affect, moves all extremities vitals reviewed Problem List Acute cholecystitis, cholelithiasis Colitis ESRD on HD HTN DM2 Anemia in CKD, on chronic dialysis Continue IV Rocephin and Flagyl. Blood cultures: No growth to date. chronic indwelling mitchell exchanged 11/07; recommended removal given low UOP and on HD;; pt opted to f/u at [facility]/clinic UA with bacteruria, likely colonization General surgery consulted for acute vs acute on chronic cholecystitis continued with pain despite medical management s/p lap blanco on 11/09 continues with nausea/pain - unclear etiology, LFTs WNL/stable; lipase ok, gastric ulcer tolerated some liquids, no food LFTs ok, trend lipase ok Nephrology is following for hemodialysis. 2u PRBC ordered with HD on 11/08, hgb: 6.9 and improved to 9 Insulin sliding scale for glucose. Supportive measures with antiemetics and pain management as needed. Continue Protonix. add carafate Code: full Dispo: home, ~1-2 days Time Spent Managing Pts Care (In Minutes): 25
[2022-11-11] MEDS: ASCORBIC ACID 500 MG TABLET PO SCH (08:01)
[2022-11-11] MEDS: ONDANSETRON 4 MG/2 ML VIAL IV PRN ×2 (08:01→17:59)
[2022-11-11] MEDS: PANTOPRAZOLE 40 MG INJ IVP SCH (08:02)
[2022-11-11] MEDS: FINASTERIDE 5 MG TAB PO SCH (08:02)
[2022-11-11] MEDS: carvediloL 3.125 MG TAB PO SCH ×2 (08:02→20:54)
[2022-11-11] MEDS: CEFTRIAXONE 1,000 MG in NA CHLORIDE 0.9% 50 ML IVPB SCH (08:02)
[2022-11-11] MEDS: HYDROCODONE/APAP 5/325 MG TAB PO PRN ×2 (08:02→21:12)
[2022-11-11] MEDS: ISOSORBIDE MONO SR 30 MG TAB PO SCH (08:02)
--- NOTE | 2022-11-11 14:03 | P.PN ---
Subjective Date of Service: 11/11/22 Chief Complaint: Abdominal pain, nausea and vomiting and diarrhea Subjective: Other (C/o nausea) Physical Examination - Vital Signs Temperature: 96.5 F Blood Pressure: 146/68 Pulse: 69 Respirations: 16 Pulse Ox (%): 99 - Physical Exam General: Other (Chronically ill appearing) HEENT: Atraumatic, Normocephalic Neck: Supple, JVD not distended Respiratory: Other (Symmetric chest expansion) Cardiovascular: No rubs, No murmurs Gastrointestinal: Soft and benign Musculoskeletal: No clubbing Integumentary: No warmth Neurological: Normal tone Urinary: Other (No bladder distention) External genitalia: Deferred Rectal: Deferred - Studies Microbiology Data (last 24 hrs): 11/05/22 13:59 Blood - Blood Aerobic Blood Culture - Final No growth in 5 days. 11/05/22 13:59 Blood - Blood Anaerobic Blood Culture - Final No growth in 5 days. Assessment And Plan - Plan 1. ESRD on HD. Next HD tomorrow per qTTS sked. Midodrine or NS or IV albumin prn for intradialytic hypotension. 2. Hypertension. Cont current med regimen. 3. Acute cholecystitis. S/p lap blanco on 11/09/22. Per Surgical service. 4. Anemia. Monitor cbc. Retacrit SQ qTTS. 5. DM2. Mngt per primary team. 6. AMS, Wernicke encephalopathy. Per other services. Renal vit po daily. 7. HypoK. Correction via HD.
[2022-11-11] MEDS: allopurinoL 100 MG TAB PO SCH (16:19)
[2022-11-11] MEDS: PROMETHAZINE INJ 25 MG/ML AMP IV PRN (20:53)
[2022-11-11] MEDS: TOPIRAMATE 25 MG TAB PO SCH (20:53)
[2022-11-11] MEDS: SUCRALFATE 1 GM TABLET PO SCH (20:54)
[2022-11-11] MEDS: TAMSULOSIN 0.4 MG SR CAP PO SCH (20:54)
[2022-11-11] MEDS: ATORVASTATIN 80 MG TAB PO SCH (20:55)
[2022-11-11] MEDS: AMINO ACIDS/PROTEIN HYDROLYS 30 ML LIQUID.PKT PO SCH (20:56)
--- NOTE | 2022-11-11 21:00 | PN ---
Date of Progress Note: 11/11/2022 Subjective: Status post lap blanco, status post acute cholecystitis. He is still having nausea, unab le to tolerate full liquid diet yet. Objective: Chest: Clear. Abdomen: Intact surgical site. Extremities: Good capillary refill. Plan: Advance diet. Ambulate. Discharge home when he can tolerate diet and then follow up in my of [facility] in a week. LAYTON/MODL Voice ID: [id number] Report ID: [id number]
[2022-11-12] MEDS: METRONIDAZOLE 500mg IVPB 500 MG/100 ML BAG IV SCH (00:20)
[2022-11-12] MEDS: HYDRALAZINE HCL 20 MG/ML VIAL IV PRN (05:09)
[2022-11-12 05:49] LABS: Hematocrit 27.2 % (39.6-49.0); MPV 8.3 fL (7.6-11.3); RBC Red Blood Cell Count 3.16 M/uL (4.33-5.43)
[2022-11-12 05:59] LABS: Albumin 2.6 g/dL (3.4-5.0); Bilirubin Total 0.5 mg/dL (0.2-1.0); Magnesium 1.7 mg/dL (1.6-2.4); Potassium 3.8 mmol/L (3.5-5.1); Protein, Total 5.8 g/dL (6.4-8.2)
[2022-11-12] MEDS: INSULIN -REGULAR HUMAN 50 UNIT/0.5 ML ML SQ SCH ×4 (07:30→20:49)
[2022-11-12] MEDS: SUCRALFATE 1 GM TABLET PO SCH ×6 (07:30→20:48)
--- NOTE | 2022-11-12 07:40 | RAD REPORT ---
EXAM DESCRIPTION: RAD - Abdomen 1 View (KUB) - 11/12/2022 7:08 am CLINICAL HISTORY: n/v, eval stool burden COMPARISON: No comparisons FINDINGS: Nonobstructive bowel gas pattern. No acute osseous abnormality.Visualized lungs are unrema rkable.No abnormal calcifications. Surgical rashmi in the right lower quadrant. Stool burden is low. IMPRESSION: Nonobstructive bowel gas pattern.
[2022-11-12] MEDS ORDERED: NA CHLORIDE 0.9% 100 ML ONE (08:40)
[2022-11-12] MEDS ORDERED: Meropenem 500 MG VIAL IV ONE (08:41)
[2022-11-12] MEDS: ASCORBIC ACID 500 MG TABLET PO SCH ×2 (08:44→09:00)
[2022-11-12] MEDS: PROMETHAZINE INJ 25 MG/ML AMP IV PRN ×2 (08:45→20:47)
[2022-11-12] MEDS: carvediloL 3.125 MG TAB PO SCH ×3 (08:45→20:48)
[2022-11-12] MEDS: PANTOPRAZOLE 40 MG INJ IVP SCH (08:45)
[2022-11-12] MEDS: Meropenem 500 MG in NA CHLORIDE 0.9% 100 ML IV SCH (08:45)
[2022-11-12] MEDS: FINASTERIDE 5 MG TAB PO SCH ×2 (08:45→09:00)
[2022-11-12] MEDS: MULTIVITAMINS,THERAPEUT 1 TAB PO SCH ×2 (08:45→09:00)
[2022-11-12] MEDS: ISOSORBIDE MONO SR 30 MG TAB PO SCH ×2 (08:45→09:00)
[2022-11-12] MEDS: LACTOSE-REDUCED FOOD 330 ML LIQUID PO SCH (08:46)
[2022-11-12] MEDS: AMINO ACIDS/PROTEIN HYDROLYS 30 ML LIQUID.PKT PO SCH ×2 (08:46→20:49)
--- NOTE | 2022-11-12 10:25 | PN ---
Date of Progress Note: 11/12/2022 Subjective: The patient was admitted with low blood pressure on dialysis. The patient found to have cholelithiasis, status post cholecystectomy. The patient is still complaining from nausea and vomiting, cannot tolerate any p.o. Physical Examination: Vital Signs: Blood pressure 146/68, pulse of 67, afebrile. Chest: Clear to auscultation. Heart: S1, S2. Regular. Abdomen: Mild tenderness. No guarding or rebound. Extremities: No edema. Neurologic: Alert. No focality. The patient still has [place]. Laboratory Data: WBC 4.6, H and H 9.1/27.2, platelets of 76. Sodium 139, potassium 3.8, bicarb 23, BUN 24, creatinine 4, calcium 8.7, phosphorus 3. Magnesium 1.7, albumin 2.6. Corrected calcium is 9.9. Current Medications: The patient on include meropenem 500 daily, Flomax, Epogen, atorvastatin, carvedilol 3.125 b.i.d., isosorbide 30 daily, pantoprazole, Carafate, allopurinol, finasteride. Assessment And Plan: 1. End-stage renal disease, currently tolerating dialysis. No low blood pressure. We will continue the patient on dialysis. The patient due for dialysis today and we will follow up. 2. Hypertension, history of hypotension. Currently, blood pressure has been controlled. I am going to maintain the patient on high blood pressure to avoid low blood pressure on the dialysis and we will follow up. We will hold midodrine currently. 3. Secondary hyperparathyroidism, stable. 4. Urinary tract infection. The patient was started on meropenem. We will follow up with primary. 5. Cholelithiasis, status post cholecystectomy. We will follow up with Surgery. 6. Gastroenteritis. I am going to go ahead and continue with Carafate for the time being. Continue PPI. I will add Reglan and we will follow up. Time spent examining the patient [id number] reviewing data lab and radiology discussing the case with the patient placing order discussing the case with the steamfitter apprentice including nursing discussing the case with the hospitalist more than 35-minute KUSUM/NURIA Voice ID: [id number] Report ID: [id number] [facility]
[2022-11-12] MEDS: ALBUMIN HUMAN 25% 100 ML IV ONE ×2 (11:30→12:00)
[2022-11-12] MEDS: METOCLOPRAMIDE 5 MG TAB PO SCH ×3 (11:30→20:48)
[2022-11-12] MEDS: EPOETIN ALFA 10,000 UNIT/ML VIAL IV SCH (13:30)
--- NOTE | 2022-11-12 17:19 | P.PN ---
Date of Service: 11/12/22 Subjective: continues with intermittent nausea worse when laying down has not tried the carafate urine: morganella - started merrmem ROS: A complete review of systems was performed and is negative except as mentioned above Physical Exam: Gen: uncomfortable, nauseous CV: regular rate & rhythm, no edema Pulm: non-labored respirations, diminished at bases bilaterally Abd: soft, TTP in RUQ, moderate TTP in epigastrium, pinkish tinged GENEVIEVE drainage Neuro: normal speech, normal affect, moves all extremities vitals reviewed Problem List Acute cholecystitis, cholelithiasis Colitis ESRD on HD HTN DM2 Anemia in CKD, on chronic dialysis Blood cultures: No growth to date. chronic indwelling mitchell exchanged 11/07; recommended removal given low UOP and on HD;; pt opted to f/u at [facility]/clinic UA with bacteruria, likely colonization growing morganella, resistant switch roceph/flagyl to merrem 11/12 General surgery consulted for acute vs acute on chronic cholecystitis continued with pain despite medical management s/p lap blanco on 11/09 continues with nausea/pain - unclear etiology, LFTs WNL/stable; lipase ok, possible ?gastric ulcer tolerated some liquids, no food LFTs ok, trend lipase ok start carafate 11/11 Nephrology is following for hemodialysis. 2u PRBC ordered with HD on 11/08, hgb: 6.9 and improved to 9 Insulin sliding scale for glucose. Supportive measures with antiemetics and pain management as needed. Continue Protonix. carafate Code: full Dispo: home, ~2-3 days Time Spent Managing Pts Care (In Minutes): 25
[2022-11-12] MEDS ORDERED: EPOETIN ALFA-EPBX 4,000 UNIT/ML VIAL SQ SCH (18:00)
[2022-11-12] MEDS: TOPIRAMATE 25 MG TAB PO SCH (20:49)
[2022-11-12] MEDS: HYDROCODONE/APAP 5/325 MG TAB PO PRN (20:55)
[2022-11-12] MEDS: ATORVASTATIN 80 MG TAB PO SCH (21:00)
[2022-11-13] MEDS: HYDRALAZINE HCL 20 MG/ML VIAL IV PRN (01:48)
[2022-11-13] MEDS: ONDANSETRON 4 MG/2 ML VIAL IV PRN (03:28)
[2022-11-13 06:22] LABS: Hematocrit 26.9 % (39.6-49.0); MCV 85.7 fL (80-100); MPV 8.2 fL (7.6-11.3); RBC Red Blood Cell Count 3.14 M/uL (4.33-5.43)
--- NOTE | 2022-11-13 06:37 | P.PN ---
Date of Service: 11/13/22 Subjective: continues with intermittent nausea, burping, abd discomfort last BM 2 days ago +flatus talking makes his nausea worse tolerating some liquids/water ROS: A complete review of systems was performed and is negative except as mentioned above Physical Exam: Gen: NAD, AOx3 CV: regular rate & rhythm, 1+ edema Pulm: non-labored respirations, diminished at bases bilaterally Abd: soft, TTP in RUQ, moderate TTP in epigastrium, pinkish tinged GENEVIEVE drainage Neuro: normal speech, normal affect, moves all extremities vitals reviewed Problem List Acute cholecystitis, cholelithiasis Colitis ESRD on HD HTN DM2 Anemia in CKD, on chronic dialysis Blood cultures: No growth to date. chronic indwelling mitchell exchanged 11/07; recommended removal given low UOP and on HD;; pt opted to f/u at [facility]/clinic UA with bacteruria, likely colonization growing morganella, resistant; and Enterococcus switch roceph/flagyl to merrem 11/12 Enterococcus resulted on 11/13, added vancomycin 11/13 nclear if infectious or colonization; given resistance, will treat General surgery consulted for acute vs acute on chronic cholecystitis continued with pain despite medical management s/p lap blanco on 11/09 continues with nausea/pain - unclear etiology, LFTs WNL/stable; lipase ok, possible ?gastric ulcer j possibly from UTI tolerated some liquids, no food LFTs ok, trend lipase ok started carafate 11/11 Nephrology is following for hemodialysis. 2u PRBC ordered with HD on 11/08, hgb: 6.9 and improved to 9 Insulin sliding scale for glucose. Supportive measures with antiemetics and pain management as needed. Continue Protonix. carafate Code: full Dispo: home, ~2-3 days Time Spent Managing Pts Care (In Minutes): 25
[2022-11-13 06:43] LABS: Albumin 2.8 g/dL (3.4-5.0); Bilirubin Total 0.6 mg/dL (0.2-1.0); Magnesium 1.7 mg/dL (1.6-2.4); Potassium 3.8 mmol/L (3.5-5.1); Protein, Total 5.7 g/dL (6.4-8.2)
[2022-11-13] MEDS: INSULIN -REGULAR HUMAN 50 UNIT/0.5 ML ML SQ SCH ×4 (07:30→20:47)
[2022-11-13] MEDS: SUCRALFATE 1 GM TABLET PO SCH ×4 (07:59→20:45)
[2022-11-13] MEDS: PROMETHAZINE INJ 25 MG/ML AMP IV PRN (07:59)
[2022-11-13] MEDS: METOCLOPRAMIDE 5 MG TAB PO SCH ×4 (07:59→20:46)
[2022-11-13] MEDS: AMINO ACIDS/PROTEIN HYDROLYS 30 ML LIQUID.PKT PO SCH ×2 (09:00→21:00)
[2022-11-13] MEDS: LACTOSE-REDUCED FOOD 330 ML LIQUID PO SCH (09:00)
[2022-11-13] MEDS ORDERED: Meropenem 500 MG VIAL IV ONE (09:52)
[2022-11-13] MEDS ORDERED: NA CHLORIDE 0.9% 100 ML ONE (09:53)
[2022-11-13] MEDS: PANTOPRAZOLE 40 MG INJ IVP SCH (09:56)
[2022-11-13] MEDS: Meropenem 500 MG in NA CHLORIDE 0.9% 100 ML IV SCH (09:57)
[2022-11-13] MEDS: ASCORBIC ACID 500 MG TABLET PO SCH (09:58)
[2022-11-13] MEDS: FINASTERIDE 5 MG TAB PO SCH (09:58)
[2022-11-13] MEDS: MULTIVITAMINS,THERAPEUT 1 TAB PO SCH (09:58)
[2022-11-13] MEDS: ISOSORBIDE MONO SR 30 MG TAB PO SCH (09:58)
[2022-11-13] MEDS: carvediloL 3.125 MG TAB PO SCH ×2 (09:59→20:46)
[2022-11-13] MEDS ORDERED: VANCOMYCIN 2 GM in NA CHLORIDE 0.9% 500 ML IVPB SCH (14:00)
[2022-11-13] MEDS: NEPRO SHAKE 237 ML CAN PO SCH ×2 (14:13→20:47)
--- NOTE | 2022-11-13 16:04 | PN ---
Date of Progress Note: 11/13/2022 Subjective: Patient was admitted with low blood pressure on dialysis. Patient had one incident of low blood pressure yesterday, but after giving albumin, the blood pressure stabilized. Patient still complaining from abdominal pain and nausea without real vomiting. Patient is still not eating well. Patient is status post cholecystectomy. Physical Examination: Vital Signs: Blood pressure 147/75, pulse of 76, afebrile. Chest: Clear to auscultation. Heart: S1, S2. Regular. Abdomen: Mild tenderness on the right upper quadrant. No guarding or rebound. Extremities: No edema. Neurological: Alert. No focality. Laboratory Data: Hemoglobin 9.1. Sodium 139, potassium is 3.8, bicarb 25, BUN 23, creatinine 2.9, calcium 8.5, phosphorus of 3, albumin 2.6, corrected calcium is 9.5. Current Medications: The patient on include atorvastatin, carvedilol 3.125, isosorbide 30, Tylenol, Topamax, metoclopramide, Zofran, Carafate, finasteride. Assessment And Plan: 1. End-stage renal disease, dialysis dependent, tolerating dialysis currently with occasional low blood pressure. I am going to go ahead and discontinue mononitrate to avoid any further low blood pressure. We will continue carvedilol and we will continue to monitor. 2. Abdominal pain, gastroenteritis, status post cholecystectomy. We will follow up with the Primary. Continue symptomatic treatment. We will try Nepro to stimulate his appetite and we will follow up. 3. Hypertension, controlled, optimal with occasional low blood pressure, on dialysis. Discontinue isosorbide. 4. Colitis as by primary. 5. Hyponatremia, going to be corrected with the dialysis. 6. Hypokalemia. I am not going to do any supplement given that the patient dialysis dependent, going to be corrected with the dialysis as we dialyzed on high potassium bath. Time spent examining the patient [id number] reviewing data lab and radiology discussing the case with the patient placing order discussing the case with the hourly team members including nursing discussing the case with the hospitalist more than 35-minute KUSUM/NURIA Voice ID: [id number] Report ID: [id number] LASHAWN
[2022-11-13] MEDS: ATORVASTATIN 80 MG TAB PO SCH (20:46)
[2022-11-13] MEDS: TOPIRAMATE 25 MG TAB PO SCH (20:46)
[2022-11-14 01:20] LABS: Magnesium 1.6 mg/dL (1.6-2.4)
[2022-11-14] MEDS ORDERED: MAGNESIUM SULFATE 1 gm IVPB 1 GM/100 ML BAG IV ONE ×2 (01:21→21:43)
[2022-11-14] MEDS ORDERED: carvediloL 3.125 MG TAB PO ONE (03:28)
[2022-11-14] MEDS: carvediloL 3.125 MG TAB PO SCH ×2 (05:17→21:00)
--- NOTE | 2022-11-14 06:32 | P.PN ---
Date of Service: 11/14/22 Subjective: short bursts of SVT overnight' afib this morning, given coreg early felt better last night, got more sleep able to tolerate some jello and bites of egg this morning afterwards, became nauseous - noted to be in Afib; HR: 100-110 blood pressure was low as well improved with iv fluid ROS: A complete review of systems was performed and is negative except as mentioned above Physical Exam: Gen: NAD, AOx3 CV: irregularly irregulary rhythm, 1+ edema Pulm: non-labored respirations, diminished at bases bilaterally Abd: soft, TTP in RUQ, mild-mod TTP in epigastrium, serosanguineous GENEVIEVE drainage Neuro: normal speech, normal affect, moves all extremities vitals reviewed Problem List Acute cholecystitis, cholelithiasis Colitis ESRD on HD HTN DM2 Anemia in CKD, on chronic dialysis Blood cultures: No growth to date. chronic indwelling mitchell exchanged 11/07; recommended removal given low UOP and on HD;; [facility] again discussed on 11/14, given urine culture findings; discussed straight cath's, patient again refuses, wants to wait for [facility] UA with bacteruria, likely colonization growing morganella, resistant; and Enterococcus switch roceph/flagyl to merrem 11/12 Enterococcus resulted on 11/13, added vancomycin 11/13 unclear if infectious or colonization; given resistance, will treat ID consutled General surgery consulted for acute vs acute on chronic cholecystitis continued with pain despite medical management s/p lap blanco on 11/09 continues with nausea/pain - unclear etiology, LFTs WNL/stable; lipase ok, possible ?gastric ulcer possibly from UTI tolerated some liquids, no food LFTs ok, trend lipase ok started carafate 11/11 some improvement briefly 11/13 night to 11/14 AM Nephrology is following for hemodialysis. 2u PRBC ordered with HD on 11/08, hgb: 6.9 and improved to 9 Afib appears to be in afib, unclear if prior history, patient thinks he has been told he has afib in past, will review EKG echo cardio consulted Insulin sliding scale for glucose. Supportive measures with antiemetics and pain management as needed. Continue Protonix. carafate Code: full Dispo: home, ~3 days, may need SNF Time Spent Managing Pts Care (In Minutes): 25
[2022-11-14] MEDS: INSULIN -REGULAR HUMAN 50 UNIT/0.5 ML ML SQ SCH ×4 (07:30→20:45)
[2022-11-14] MEDS ORDERED: Meropenem 500 MG VIAL IV ONE (08:46)
[2022-11-14] MEDS ORDERED: NA CHLORIDE 0.9% 100 ML ONE (08:48)
[2022-11-14] MEDS: ASCORBIC ACID 500 MG TABLET PO SCH (09:00)
[2022-11-14] MEDS: LACTOSE-REDUCED FOOD 330 ML LIQUID PO SCH (09:00)
[2022-11-14] MEDS: AMINO ACIDS/PROTEIN HYDROLYS 30 ML LIQUID.PKT PO SCH ×2 (09:00→20:45)
[2022-11-14] MEDS ORDERED: VANCOMYCIN 1 GM in NA CHLORIDE 0.9% 250 ML IVPB SCH (09:00)
[2022-11-14] MEDS: NEPRO SHAKE 237 ML CAN PO SCH ×3 (09:00→20:45)
[2022-11-14 09:07] LABS: Hematocrit 27.8 % (39.6-49.0); MCV 85.7 fL (80-100); MPV 7.9 fL (7.6-11.3); RBC Red Blood Cell Count 3.25 M/uL (4.33-5.43)
--- NOTE | 2022-11-14 09:10 | P.CNS ---
Chief Complaint: Abdominal pain, nausea and vomiting and diarrhea History of Present Illness: 72-year-old gentleman with a history of end-stage renal disease on hemodialysis, diabetes mellitus type 2 presented to the emergency department from dialysis due to nausea and vomiting and diarrhea. He is on routine dialysis on Tuesdays and Saturdays, per report he missed dialysis on and had only 1 hour of dialysis today. Patient stated his symptoms started about 5 days ago, has not been able to eat for several days. He had an episode of vomiting in the ED. CT abdomen and pelvis done in the ED suggest distended gallbladder and acute cholecystitis as well as colitis. 11/09 Urine: Positive - Enterococcus faecium and Morganella morganii with multi-drug resistant and ID is consulted for IV antibiotic recommendation and management Allergies lisinopril Allergy (Verified 11/05/22 19:44) Anaphylaxis Home Medications: Allopurinol 50 mg PO M,W,F 11/06/22 Ascorbic Acid [Vitamin C] 1,000 mg PO DAILY 11/06/22 Aspirin 81 mg PO DAILY 11/06/22 Atorvastatin Calcium [Lipitor] 80 mg PO BEDTIME 11/06/22 Bumetanide 2 mg PO BID 11/06/22 Finasteride 5 mg PO DAILY 11/06/22 Furosemide 80 mg PO BID 11/06/22 Gabapentin 300 mg PO BID 11/06/22 Isosorbide Mononitrate [Isosorbide Mononitrate ER] 60 mg PO DAILY 11/06/22 Midodrine HCl 5 mg PO PRN 11/06/22 Sennosides [Senna] 8.6 mg PO DAILY 11/06/22 Tamsulosin [Flomax] 0.8 mg PO BEDTIME 11/06/22 Topiramate 25 mg PO BEDTIME 11/06/22 carvediloL [Carvedilol] 3.125 mg PO BID 11/06/22 glipiZIDE [Glipizide] 5 mg PO BID PRN 11/06/22 metOLazone [Metolazone] 5 mg PO DAILY 11/06/22 - Past Medical/Surgical History Diabetic: Yes -: ESRD/HD -: DMII-insulin dependent -: HTN -: HLD -: BPH -: CAD -: Endarterectomy -: Dialysis catheter Right chest Psychosocial/ Personal History: Pt lives at home with his daughter, is a pt of the [place] - Family History Mother Medical History: Heart disease - Social History Smoking Status: Unknown if ever smoked Alcohol use: No CD- Drugs: No Caffeine use: Yes Review of Systems 10-point ROS is otherwise unremarkable Gastrointestinal: Nausea, Vomiting, Abdominal Pain Genitourinary: Other (patient on hemodialysis TTS) Musculoskeletal: Foot Pain (left foot) Integumentary: Other (Sacrum pressure ulcer II; Left heel diabetic ulcer) Physical Examination Temp Pulse Resp BP Pulse Ox 97.1 F 46 L 14 101/48 L 96 11/14/22 08:00 11/14/22 08:00 11/14/22 08:00 11/14/22 08:00 11/14/22 08:00 General: Alert, In no apparent distress Respiratory: Clear to auscultation bilaterally Cardiovascular: Irregular heart rate/rhythm (A-Fib with RVR) Gastrointestinal: Hypoactive Integumentary: Diabetic ulcer (left heel), Pressure ulcer (Sacral stage II) Neurological: Normal speech Urinary: Dialysis catheter, Mitchell catheter Current Medications: Acetaminophen (Acetaminophen 650mg/Rect Supp) 650 mg [place] Q6HP PRN PRN Reason: TEMP > 100' F Hydrocodone Bitart/Acetaminophen (Hydrocodone/Apap 5/325 Mg Tab) 1 tab PO Q4H PRN PRN Reason: Pain scale 5-7 (Moderate) Last Admin: 11/14/22 14:24 Dose: 1 tab Allopurinol (Allopurinol 100 Mg Tab) 50 mg PO M,W,F [facility] Last Admin: 11/14/22 16:04 Dose: 50 mg Amino Acids (Amino Acids/Protein Hydrolys 30 Ml Liquid.Pkt) 30 ml PO BID [facility] Last Admin: 11/14/22 20:45 Dose: Not Given Ascorbic Acid (Ascorbic Acid 500 Mg Tablet) 1,000 mg PO DAILY [facility] Last Admin: 11/14/22 09:00 Dose: Not Given Atorvastatin Calcium (Atorvastatin 80 Mg Tab) 80 mg PO BEDTIME [facility] Last Admin: 11/14/22 20:44 Dose: Not Given Carvedilol (Carvedilol 3.125 Mg Tab) 3.125 mg PO BID [facility] Last Admin: 11/14/22 21:00 Dose: Not Given Enteral Nutritional Formula (Nepro Shake 237 Ml Can) 240 ml PO TID [facility] Last Admin: 11/14/22 20:45 Dose: 237 ml Epoetin Andrew (Epoetin Andrew 10,000 Unit/Ml Vial) 10,000 unit IV EVERY HD [facility] Last Admin: 11/12/22 13:30 Dose: 10,000 unit Finasteride (Finasteride 5 Mg Tab) 5 mg PO DAILY [facility] Last Admin: 11/14/22 09:23 Dose: 5 mg Heparin Sodium (Porcine) (Heparin 1,000 Unit/Ml Vial) 4,000 unit IV EVERY HD PRN PRN Reason: FOR DIALYSIS CATHETER CARE Last Admin: 11/12/22 14:02 Dose: 4,000 unit Hydralazine HCl (Hydralazine Hcl 20 Mg/Ml Vial) 10 mg IV Q6HP PRN PRN Reason: Titrate to SBP (MUST DEFINE) Last Admin: 11/13/22 01:48 Dose: 10 mg Sodium Chloride (Sodium Chloride) 250 mls @ 0 mls/hr IV .Q0M [facility]URES[facility] Meropenem 500 mg/ Sodium (Chloride) 100 mls @ 200 mls/hr IV DAILY [facility] Last Admin: 11/14/22 09:23 Dose: 100 mls Vancomycin HCl 1 gm/ Sodium (Chloride) 250 mls @ 250 mls/hr IVPB AFTER EACH DIALYSIS [facility] Potassium Chloride (Kcl 20 Meq/100 Ml Ivpb (Premix)) 20 meq in 100 mls @ 50 mls/hr IV 1X [facility]URES[facility]; Protocol Stop: 11/14/22 23:59 Insulin Human Regular (Insulin -Regular Human 50 Unit/0.5 Ml Ml) 0 unit SQ ACHS [facility]; Protocol Last Admin: 11/14/22 20:45 Dose: Not Given Metoclopramide HCl (Metoclopramide 5 Mg Tab) 5 mg PO ACHS [facility] Last Admin: 11/14/22 20:45 Dose: 5 mg Ondansetron HCl (Ondansetron 4 Mg/2 Ml Vial) 4 mg IV Q4H PRN PRN Reason: NAUSEA / VOMITING Last Admin: 11/13/22 03:28 Dose: 4 mg Pantoprazole Sodium (Pantoprazole 40 Mg Inj) 40 mg IVP DAILY [facility]; Protocol Last Admin: 11/14/22 09:22 Dose: 40 mg Promethazine HCl (Promethazine Inj 25 Mg/Ml Amp) 12.5 mg IV Q6H PRN PRN Reason: NAUSEA / VOMITING Last Admin: 11/13/22 07:59 Dose: 12.5 mg Sodium Chloride (Flush Normal Saline 10 Ml) 10 ml IV BID [facility] Last Admin: 11/14/22 20:45 Dose: 10 ml Sodium Chloride (Sodium Chloride 0.9% 10ml Inj) 10 ml IV UD PRN PRN Reason: Diluant Sucralfate (Sucralfate 1 Gm Tablet) 1 gm PO ACHS [facility] Last Admin: 11/14/22 20:44 Dose: 1 gm Topiramate (Topiramate 25 Mg Tab) 25 mg PO BEDTIME [facility] Last Admin: 11/14/22 20:46 Dose: 25 mg Vitamin B Complex/Vit C/Folic Acid (Multivitamins,Therapeut 1 Tab) 1 tab PO DAILY [facility] Last Admin: 11/14/22 09:22 Dose: 1 tab Microbiology 11/05/22 13:59 Blood - Blood Aerobic Blood Culture - Final No growth in 5 days. 11/05/22 13:59 Blood - Blood Anaerobic Blood Culture - Final No growth in 5 days. 11/09 Urine: Positive - Enterococcus faecium and Morganella morganii - Problems (1) Urinary tract infection associated with indwelling urethral catheter Current Visit: Yes Status: Acute Plan: 11/09 Urine: Positive - Enterococcus faecium and Morganella morganii with multi- drug resistant Chronic indwelling mitchell catheter (exchanged 11/07) and normally follow up with [place] hospital[facility]. Primary team had approached the patient twice suggesting removal of catheter with the alternative of using straight catheter as needed. Patient declined again and wanted to wait for [place]. Antibiotics: - Had Rocephin and flagyl and switched to Meropenem (Susceptible to Morganella morganii) on 11/12 added Vancomycin (Susceptible to Enterococcus faecium) on 11/13 - Recommend to continue IV Meropenem and Vancomycin Conclusions/Impression: -Urinary tract infection associated with indwelling urethral catheter: Recommend continue IV Meropenem and Vancomycin - Acute cholecystitis, Cholelithiasis: General surgery onboard and s/p Laparoscopic cholecystectomy and laparoscopic lysis of adhesions on 11/09 - Colitis: - ESRD on HD: Nephrology onboard and follows the patient - HTN: By primary team - A-Fib: Cardiology onboard and follows the patient - DM 2: Insulin management by primary team - Anemia of chronic disease, CKD, on chronic dialysis - Chronic indwelling catheter - Pressure ulcer of sacrum stage II - Left heel diabetic ulcer ID will closely monitoring the patient for signs of infection with fever and WBC trends Case has been discussed with Valentina Brewster Thank you Dr. Veras for consult
[2022-11-14] MEDS: SUCRALFATE 1 GM TABLET PO SCH ×4 (09:22→20:44)
[2022-11-14] MEDS: METOCLOPRAMIDE 5 MG TAB PO SCH ×4 (09:22→20:45)
[2022-11-14] MEDS: PANTOPRAZOLE 40 MG INJ IVP SCH (09:22)
[2022-11-14] MEDS: MULTIVITAMINS,THERAPEUT 1 TAB PO SCH (09:22)
[2022-11-14] MEDS: FINASTERIDE 5 MG TAB PO SCH (09:23)
[2022-11-14] MEDS: Meropenem 500 MG in NA CHLORIDE 0.9% 100 ML IV SCH (09:23)
[2022-11-14 09:27] LABS: Albumin 2.6 g/dL (3.4-5.0); Bilirubin Total 0.6 mg/dL (0.2-1.0); Magnesium 1.9 mg/dL (1.6-2.4); Potassium 3.9 mmol/L (3.5-5.1); Protein, Total 5.5 g/dL (6.4-8.2)
[2022-11-14] MEDS ORDERED: NA CHLORIDE 0.9% 500 ML IV ONE (12:10)
[2022-11-14] MEDS: HYDROCODONE/APAP 5/325 MG TAB PO PRN (14:24)
--- NOTE | 2022-11-14 15:46 | PN ---
Date of Progress Note: 11/14/2022 Subjective: History of chronic nausea, renal failure, abdominal pain. Also came with cholecystitis, status post cholecystectomy. Objective: Chest: Clear. Abdomen: Soft and depressible. Intact surgical site. GENEVIEVE drain is serosanguineous. Extremities: Good capillary refill. Plan: Advance diet. May discharge home whenever the primary doctor believes patient can have normal diet and recommend also a proofer apprentice's evaluation and this as an outpatient. We will remove the GENEVIEVE drain when he comes back to the office. LAYTON/NURIA Voice ID: [id number] Report ID: [id number]
[2022-11-14] MEDS: allopurinoL 100 MG TAB PO SCH (16:04)
--- NOTE | 2022-11-14 16:25 | EKG ---
Test Date: 2022-11-14 Test Time: 00:55:35 Press Supervisor: ABBIE MEASUREMENT RESULTS: Intervals: Rate: 87 NV: QRSD: 82 QT: 420 QTc: 505 [place]: P: -6 NV: QRS: -21 T: 30 INTERPRETIVE STATEMENTS: Sinus tachycardia with 2nd degree AV block (Mobitz I) Prolonged QT Abnormal ECG Compared to ECG 11/14/2022 00:52:01 No significant changes Electronically Signed On 11-14-22 16:25:07 CLAY TEMPERER by Jose Keita
--- NOTE | 2022-11-14 16:25 | EKG ---
Test Date: 2022-11-14 Test Time: 00:52:01 Interventional Cardiologist: ABBIE MEASUREMENT RESULTS: Intervals: Rate: 94 LA: QRSD: 82 QT: 430 QTc: 537 [place]: P: 35 LA: QRS: -20 T: 40 INTERPRETIVE STATEMENTS: Sinus tachycardia with 2nd degree AV block (Mobitz I) Prolonged QT Abnormal ECG Compared to ECG 10/13/2022 14:01:01 Prolonged QT interval now present Sinus rhythm no longer present Electronically Signed On 11-14-22 16:25:17 CIGARETTE MACHINE OPERATOR by Jose Keita
--- NOTE | 2022-11-14 19:40 | CON ---
Date of Consultation: 11/14/2022 Reason For Consultation: SVTs. History Of Present Illness: A 72-year-old male with history of coronary artery disease, status post stents [facility] in [facility], has history of diabetes, hypertension, dyslipidemia, and end-stage renal disease, on hemodialysis, who was sent from dialysis due to hypotension, nausea and vomiting, found to have gallbladder issue, status post cholecystectomy, and apparently in the postop, he was marcus ving some short episodes of SVT. The patient denies having any chest pain and no shortness of breath . Past Medical History: As outlined above in the HPI. Medications: Refer reconciliation sheet for detailed list. Allergies: LISINOPRIL. Family History: No premature coronary artery disease or cancer. Social History: He does not smoke or drink. Does not use any drugs. Review of Systems: All systems reviewed and they were negative except as mentioned in the HPI. Physical Examination: Vital Signs: Reviewed. Head And Neck: Pupils are equal and reactive to light. Intact eye movements. No JVD. No cervical lymphadenopathy. Neck: Supple. Thyroid is not enlarged. Lungs: Clear to auscultation bilaterally. No rhonchi, rales, or crackles. No accessory muscle use. Heart: Regular rate and rhythm. No extra sounds. Abdomen: Soft, nontender. Bowel sounds positive. No organomegaly. No masses or hernia. No rigidi ty or rebound. Extremities: 1 to 2+ edema. No clubbing or cyanosis. Intact pulses. Skin: No rash. Neurologic: Alert, awake, and oriented x3. No acute focal deficits appreciated. Lymph Nodes: No ce rvical or axillary lymphadenopathy. Investigations: BUN 31 and creatinine 3.7. Hemoglobin 9.3. Assessment And Recommendations: 1.Tachyarrhythmia. He is on Coreg 3.125 mg twice a day that was started today. Continue current ma nagement. It seems like his heart rate has slowed down nicely. I will monitor the patient with you. Please obtain echocardiogram and then make sure electrolytes are balanced, potassium above 4 and ma gnesium above 2, and also trend troponin. 2.Coronary artery disease, known history. He will need ischemia evaluation, which will be done as a n outpatient. SR/MODL Voice ID: [id number] Report ID: [id number]
[2022-11-14] MEDS: ATORVASTATIN 80 MG TAB PO SCH (20:44)
[2022-11-14] MEDS: TOPIRAMATE 25 MG TAB PO SCH (20:46)
[2022-11-14] MEDS ORDERED: NA CHLORIDE 0.9% 250 ML IV PRN (21:41)
[2022-11-14] MEDS ORDERED: NA CHLORIDE 0.9% 250 ML IV ONE (21:44)
[2022-11-14] MEDS ORDERED: KCL 20 MEQ/100 mL IVPB 20 MEQ/100 ML BAG IV SCH (22:00)
--- NOTE | 2022-11-15 01:01 | PN ---
Date of Progress Note: 11/14/2022 Chief Complaint: End-stage renal disease, chronic pain, and intradialytic hypotension. Subjective: The patient is complaining of some nausea and denies vomiting. P.o. intake has decreased. The patient has been dialyzed 3 times per week. The patient has peripheral edema and some fluid overload. Review of Systems: Denies fever or chills. Physical Examination: Lungs: Clear to auscultation bilaterally. Heart: S1, S2. Abdomen: Soft. Extremities: No edema. Impression And Plan: 1. End-stage renal disease. The patient is tolerating dialysis. Monitor for any evidence of intradialytic hypotension. The patient may be a candidate for midodrine. 2. Abdominal pain, gastroenteritis, status post cholecystectomy. The patient will follow up with primary doctor outpatient. 3. Hypoalbuminemia. Continue po protein supplements 4. Hypertension. Blood pressure control is optimal with occasional low blood pressure. The patient is on dialysis. Continue to monitor ultrafiltration and fluid balance. 5. Colitis, per Primary Team. 6. Hyponatremia. Dialysis was ordered to correct hyponatremia. Sodium level overall improved. 7. Hypokalemia. The patient will continue dialysis with high potassium diet. Monitor potassium level closely. Avoid high potassium intake due to end-stage renal disease. EB/MODL Voice ID: [id number] Report ID: [id number] LASHAWN
[2022-11-15] MEDS ORDERED: ALBUMIN HUMAN 25% 100 ML IV ONE (01:24)
[2022-11-15] MEDS ORDERED: ALBUMIN HUMAN 25% 50 ML IV ONE (02:50)
[2022-11-15] MEDS: carvediloL 3.125 MG TAB PO SCH ×2 (03:55→21:13)
[2022-11-15 04:37] LABS: Hematocrit 26.5 % (39.6-49.0); MCV 84.6 fL (80-100); MPV 7.6 fL (7.6-11.3); RBC Red Blood Cell Count 3.13 M/uL (4.33-5.43)
[2022-11-15 05:01] LABS: Albumin 2.9 g/dL (3.4-5.0); Bilirubin Total 0.5 mg/dL (0.2-1.0); Magnesium 2.1 mg/dL (1.6-2.4); Potassium 3.8 mmol/L (3.5-5.1); Protein, Total 5.6 g/dL (6.4-8.2)
[2022-11-15] MEDS: INSULIN -REGULAR HUMAN 50 UNIT/0.5 ML ML SQ SCH ×4 (07:30→21:06)
[2022-11-15] MEDS: SUCRALFATE 1 GM TABLET PO SCH ×4 (07:46→21:05)
[2022-11-15] MEDS: METOCLOPRAMIDE 5 MG TAB PO SCH ×4 (07:46→21:06)
[2022-11-15] MEDS ORDERED: Meropenem 500 MG VIAL IV ONE (08:56)
[2022-11-15] MEDS ORDERED: NA CHLORIDE 0.9% 100 ML ONE (08:57)
[2022-11-15] MEDS: AMINO ACIDS/PROTEIN HYDROLYS 30 ML LIQUID.PKT PO SCH (09:00)
[2022-11-15] MEDS: Meropenem 500 MG in NA CHLORIDE 0.9% 100 ML IV SCH (09:00)
[2022-11-15] MEDS: LACTOSE-REDUCED FOOD 330 ML LIQUID PO SCH ×2 (09:02→21:00)
[2022-11-15] MEDS: PANTOPRAZOLE 40MG TABLET PO SCH (09:02)
[2022-11-15] MEDS: ASCORBIC ACID 500 MG TABLET PO SCH (09:02)
[2022-11-15] MEDS: FINASTERIDE 5 MG TAB PO SCH (09:02)
[2022-11-15] MEDS: MULTIVITAMINS,THERAPEUT 1 TAB PO SCH (09:02)
[2022-11-15] MEDS: NEPRO SHAKE 237 ML CAN PO SCH ×2 (09:04→13:44)
--- NOTE | 2022-11-15 10:15 | P.PN ---
Subjective Date of Service: 11/15/22 Chief Complaint: Abdominal pain, nausea and vomiting and diarrhea Patient lying in bed reported feeling better and no longer feeling nauseated. No major events upon examination. Physical Examination - Vital Signs Temperature: 97.8 F Blood Pressure: 109/49 Pulse: 78 Respirations: 18 Pulse Ox (%): 100 - Physical Exam General: Alert, In no apparent distress, Oriented x3 Respiratory: Clear to auscultation bilaterally Cardiovascular: Irregular heart rate/rhythm (A-fib) Gastrointestinal: Normal bowel sounds Integumentary: Diabetic ulcer (Left heel, dressing in place clean and dry), Pressure ulcer (sacral stage II) Neurological: Normal speech, Normal affect Urinary: Dialysis catheter, Mitchell catheter (chornic mitchell ) - Studies Current Medications: Acetaminophen (Acetaminophen 650mg/Rect Supp) 650 mg DE Q6HP PRN PRN Reason: TEMP > 100' F Allopurinol (Allopurinol 100 Mg Tab) 50 mg PO M,W,F [facility] Last Admin: 11/14/22 16:04 Dose: 50 mg Amino Acids (Amino Acids/Protein Hydrolys 30 Ml Liquid.Pkt) 30 ml PO BID [facility] Last Admin: 11/15/22 09:00 Dose: Not Given Ascorbic Acid (Ascorbic Acid 500 Mg Tablet) 1,000 mg PO DAILY [facility] Last Admin: 11/15/22 09:02 Dose: 1,000 mg Atorvastatin Calcium (Atorvastatin 80 Mg Tab) 80 mg PO BEDTIME [facility] Last Admin: 11/14/22 20:44 Dose: Not Given Carvedilol (Carvedilol 3.125 Mg Tab) 3.125 mg PO BID [facility] Last Admin: 11/15/22 03:55 Dose: 3.125 mg Enteral Nutritional Formula (Nepro Shake 237 Ml Can) 240 ml PO TID [facility] Last Admin: 11/15/22 09:04 Dose: 237 ml Epoetin Andrew (Epoetin Andrew 10,000 Unit/Ml Vial) 10,000 unit IV EVERY HD [facility] Last Admin: 11/12/22 13:30 Dose: 10,000 unit Finasteride (Finasteride 5 Mg Tab) 5 mg PO DAILY [facility] Last Admin: 11/15/22 09:02 Dose: 5 mg Heparin Sodium (Porcine) (Heparin 1,000 Unit/Ml Vial) 4,000 unit IV EVERY HD PRN PRN Reason: FOR DIALYSIS CATHETER CARE Last Admin: 11/12/22 14:02 Dose: 4,000 unit Hydralazine HCl (Hydralazine Hcl 20 Mg/Ml Vial) 10 mg IV Q6HP PRN PRN Reason: Titrate to SBP (MUST DEFINE) Last Admin: 11/13/22 01:48 Dose: 10 mg Sodium Chloride (Sodium Chloride) 250 mls @ 0 mls/hr IV .Q0M [facility] Meropenem 500 mg/ Sodium (Chloride) 100 mls @ 200 mls/hr IV DAILY [facility] Last Admin: 11/15/22 09:00 Dose: 100 mls Vancomycin HCl 1 gm/ Sodium (Chloride) 250 mls @ 250 mls/hr IVPB AFTER EACH DIALYSIS [facility] Insulin Human Regular (Insulin -Regular Human 50 Unit/0.5 Ml Ml) 0 unit SQ ACHS [facility]; Protocol Last Admin: 11/14/22 20:45 Dose: Not Given Metoclopramide HCl (Metoclopramide 5 Mg Tab) 5 mg PO MERGED WITH [facility] Last Admin: 11/15/22 07:46 Dose: 5 mg Ondansetron HCl (Ondansetron 4 Mg/2 Ml Vial) 4 mg IV Q4H PRN PRN Reason: NAUSEA / VOMITING Last Admin: 11/13/22 03:28 Dose: 4 mg Pantoprazole Sodium ([facility]mg Tablet) [facility] Protocol Last Admin: 11/15/22 09:02 Dose: 40 mg Promethazine HCl (Promethazine Inj 25 Mg/Ml Amp) 12.5 mg IV Q6H PRN PRN Reason: NAUSEA / VOMITING Last Admin: 11/13/22 07:59 Dose: 12.5 mg Sodium Chloride (Flush Normal Saline 10 Ml) 10 ml IV BID [facility] Last Admin: 11/15/22 09:04 Dose: 10 ml Sodium Chloride (Sodium Chloride 0.9% 10ml Inj) 10 ml IV UD PRN PRN Reason: Diluant Sucralfate (Sucralfate 1 Gm Tablet) 1 gm PO ACHS [facility] Last Admin: 11/15/22 07:46 Dose: 1 gm Topiramate (Topiramate 25 Mg Tab) 25 mg PO BEDTIME [facility] Last Admin: 11/14/22 20:46 Dose: 25 mg Vitamin B Complex/Vit C/Folic Acid (Multivitamins,Therapeut 1 Tab) 1 tab PO DAILY [facility] Last Admin: 11/15/22 09:02 Dose: 1 tab Microbiology 11/09 Urine: Positive Enterococcus faecium and Morganella Morganii Assessment And Plan - Current Problems (Diagnosis) (1) Urinary tract infection associated with indwelling urethral catheter Current Visit: Yes Status: Acute Plan: Cultures: 11/09 Urine: Positive - Enterococcus faecium and Morganella morganii with multi- drug resistant Chronic indwelling mitchell catheter (exchanged 11/07) and normally follow up with [place] hospital[facility]. Primary team had approached the patient twice suggesting removal of catheter with the alternative of using straight catheter as needed. Patient declined again and wanted to wait for [place]. Antibiotics: - Had Rocephin and flagyl and switched to Meropenem (Susceptible to Morganella morganii) on 11/12 added Vancomycin (Susceptible to Enterococcus faecium) on 11/13 - Recommend to continue IV Meropenem and Vancomycin - Plan -Urinary tract infection associated with indwelling urethral catheter: Recommend continue IV Meropenem and Vancomycin - Acute cholecystitis, Cholelithiasis: General surgery onboard and s/p Laparosco pic cholecystectomy and laparoscopic lysis of adhesions on 11/09 - Colitis: - ESRD on HD: Nephrology onboard and follows the patient - HTN: By primary team - A-Fib: Cardiology onboard and follows the patient - DM 2: Insulin management by primary team - Anemia of chronic disease, CKD, on chronic dialysis - Chronic indwelling catheter - Pressure ulcer of sacrum stage II - Left heel diabetic ulcer ID will closely monitoring the patient for signs of infection with fever and WBC trends Case has been discussed with Dr. Almodovar, N
[2022-11-15] MEDS ORDERED: HEPARIN 5000 UNIT/ML 1 ML VIAL IV ONE (13:15)
--- NOTE | 2022-11-15 13:15 | P.PN ---
Subjective Date of Service: 11/15/22 Chief Complaint: Abdominal pain, nausea and vomiting and diarrhea Patient is eating more. He states the nausea is much better today. He denies abdominal pain. Patient reported to have developed hypotension with A. fib RVR yesterday. Troponin trended up significantly. Physical Examination - Vital Signs Temperature: 97.1 F Blood Pressure: 105/47 Pulse: 70 Respirations: 18 Pulse Ox (%): 93 Assessment And Plan - Current Problems (Diagnosis) (1) Acute cholecystitis Current Visit: Yes Status: Acute (2) Colitis Current Visit: Yes Status: Acute (3) End-stage renal disease on hemodialysis Current Visit: Yes Status: Chronic (4) Diabetes mellitus type 2 in obese Current Visit: Yes Status: Chronic (5) Anemia in chronic kidney disease, on chronic dialysis Current Visit: Yes Status: Acute - Plan Physical Exam: Gen: NAD, AOx3 Neck: No elevated JVD. CV: irregularly irregulary rhythm, 1+ edema Pulm: non-labored respirations, diminished at bases bilaterally Abd: soft, nontender, normal bowel sounds. Neuro: normal speech, normal affect, moves all extremities vitals reviewed Problem List Acute cholecystitis, cholelithiasis Colitis ESRD on HD HTN DM2 Anemia in CKD, on chronic dialysis Blood cultures: No growth to date. chronic indwelling mitchell exchanged on 11/07; recommended removal given low UOP and on HD;; pt opted to f/u at [facility]/clinic UA with bacteruria. growing morganella, resistant; and Enterococcus Antibiotics switched to IV meropenem and vancomycin. Antibiotics duration per infectious disease. ID seen patient and assisting with antibiotic management. General surgery consulted for acute vs acute on chronic cholecystitis continued with pain despite medical management s/p lap blanco on 11/09 He had nausea which is improving. Lipase ok, nausea secondary to possible gastritis versus uremia induced or related to UTI He is eating more compared to yesterday. LFTs ok, trend Continue carafate 11/11 Nephrology is following for hemodialysis. 2u PRBC ordered with HD on 11/08, hgb: 6.9 and improved to 9 Afib/elevated troponin appears to be in afib, unclear if prior history, patient thinks he has been told he has afib in past. Cardiology input appreciated. Troponin trended up to 2744. echo ordered Cardiology to follow for elevated troponin. Start heparin drip in the meantime. Insulin sliding scale for glucose. Supportive measures with antiemetics and pain management as needed. Continue Protonix. carafate Code: full Dispo: SNF for IV antibiotics Time Spent Managing Pts Care (In Minutes): 36
--- NOTE | 2022-11-15 14:28 | PN ---
Date of Progress Note: 11/15/2022 Subjective: The patient was admitted with low blood pressure on dialysis. The patient tolerated dialysis during the hospitalization. The patient found to have cholelithiasis, status post cholecystectomy, tolerated very well. Because of persistent pain, cardiac workup was initiated and found to have severe elevation in his troponin compared to admission. Cardiology evaluation in progress. Echocardiogram was done today. Physical Examination: Vital Signs: Blood pressure 109/49, pulse of 78, afebrile. Chest: Clear to auscultation. Heart: S1, S2. Regular. Abdomen: Soft, mild tenderness. No guarding or rebound. Extremities: No edema. Neurologic: Alert. No focality. Laboratory Data: Sodium 135, potassium 3.8, bicarb 25, BUN 37, creatinine 4.2, calcium 8.7. Hemoglobin 8.9. Current Medications: The patient on include; 1. Meropenem. 2. Vancomycin. 3. Epogen. 4. Carvedilol 3.125 b.i.d. 5. Nepro. 6. Carafate. 7. Pantoprazole. 8. Zofran. Assessment And Plan: 1. End-stage renal disease with incident of low blood pressure on dialysis, has been tolerating the dialysis very well. We will continue to monitor the patient. 2. Hypertension. Current blood pressure maintained good on current medication. We will follow up. 3. Supraventricular tachycardia, controlled on carvedilol. We will follow up with Cardiology. 4. Non-ST elevation myocardial infarction, elevation in troponin. We will follow up with Cardiology. Follow up echocardiogram. 5. Cholelithiasis, status post cholecystectomy. We will follow up with Surgery. Continue current antibiotics. 6. Deconditioning. Continue PT/OT. Time spent examining the patient [id number] reviewing data lab and radiology discussing the case with the patient placing order discussing the case with the steam pan sponger including nursing discussing the case with the hospitalist more than 35-minute KUSUM/NURIA Voice ID: [id number] Report ID: [id number] LASHAWN
[2022-11-15] MEDS ORDERED: VANCOMYCIN 1 GM in NA CHLORIDE 0.9% 250 ML IVPB SCH (15:00)
--- NOTE | 2022-11-15 15:04 | PN ---
Date of Progress Note: 11/15/2022 Subjective: Seen by bedside. He does not have any chest pain. His troponin was high yesterday as h igh as 2700 and that is coming down. Review of Systems: There is no chest pain, shortness of breath, orthopnea, cough. No nausea, vomiting, diarrhea. All o ther systems reviewed and they were negative. Physical Examination: Vital Signs: Reviewed. Head and Neck: Pupils are equal, reactive to light. Intact eye movements. No JVD. No cervical lym phadenopathy. Neck is supple. Thyroid is not enlarged. Lungs: Clear to auscultation bilaterally. No rhonchi, wheezing, or crackles. No accessory muscle u se. Heart: Irregular. No extra sounds. Abdomen: Soft, nontender. Bowel sounds positive. No organomegaly. No masses or hernia. No rigidi ty or rebound. Extremities: No clubbing or cyanosis. Trace edema. Skin: No rash. Neurologic: Alert, awake, oriented x3. No acute focal deficits appreciated. Investigations: Hemoglobin 8.9. Creatinine is 4.27 and BUN 37, potassium 2.8. Last troponin is 184 7, trending down. Assessment And Recommendations: 1.Elevated troponin, which could be demand versus non-ST elevation myocardial infarction. Start the patient on baby aspirin 81 mg daily after a loading dose and on the echo, his ejection fraction is n ormal and no wall motion abnormalities. Once his acute gallbladder issue is resolved, we will plan f or ischemia workup with stress test versus coronary angiogram. Decision will be made after reviewing his old records. 2.Supraventricular tachycardia. Responded very well to Coreg. Continue Coreg at the current dose. Blood pressure is acceptable. SR/MODL Voice ID: [id number] Report ID: [id number]
[2022-11-15] MEDS: EPOETIN ALFA 10,000 UNIT/ML VIAL IV SCH (17:15)
[2022-11-15 18:37] LABS: Absolute Lymphocytes (CBC) 0.5 K/uL (0.7-4.9); Hematocrit 27.1 % (39.6-49.0); Lymphocytes % 10.4 % (15.3-44.8); MCV 84.5 fL (80-100); MPV 7.3 fL (7.6-11.3)
[2022-11-15 18:52] LABS: Protime INR 1.09
[2022-11-15] MEDS: ATORVASTATIN 80 MG TAB PO SCH (21:00)
[2022-11-15] MEDS: TOPIRAMATE 25 MG TAB PO SCH (21:06)
[2022-11-15] MEDS: HEPARIN/D5W 25,000 UNIT/500 ML BAG IV SCH (21:14)
[2022-11-16 01:49] LABS: Absolute Lymphocytes (CBC) 0.5 K/uL (0.7-4.9); Hematocrit 24.9 % (39.6-49.0); MCV 84.4 fL (80-100); MPV 8.5 fL (7.6-11.3); RBC Red Blood Cell Count 2.95 M/uL (4.33-5.43)
[2022-11-16 02:08] LABS: Potassium 4.1 mmol/L (3.5-5.1)
[2022-11-16] MEDS: PANTOPRAZOLE 40MG TABLET PO SCH (06:30)
--- NOTE | 2022-11-16 06:53 | ECHO ---
HEIGHT: 5 ft 10 in WEIGHT: 240 lb 0 oz DATE OF STUDY: 11/15/[address]: Jose Keita 2-DIMENSIONAL: YES M.MODE: YES DOPPLER: YES COLOR FLOW: YES TDS: YES PORTABLE: YES DEFINITY: NO BUBBLE STUDY: NO DIAGNOSIS: SUPRAVENTRICULAR TACHYCARDIA CARDIAC HISTORY: CATHERIZATION:YES SURGERY: NO PROSTHETIC VALVE: NO PACEMAKER: NO MEASUREMENTS (cm) DIASTOLIC (NORMALS) SYSTOLIC (NORMALS) IVSd 1.2 (0.6-1.2) LA Diam 2.5 (1.9-4.0) LVEF 66% LVIDd 2.9 (3.5-5.7) LVIDs 1.9 (2.0-3.5) %FS 35% LVPWd 1.2 (0.6-1.2) Ao Diam 2.9 (2.0-3.7) 2 DIMENSIONAL ASSESSMENT: RIGHT ATRIUM: NORMAL LEFT ATRIUM: NORMAL RIGHT VENTRICLE: NORMAL LEFT VENTRICLE: NORMAL TRICUSPID VALVE: MILD TR MITRAL VALVE: MODERATE MAC PULMONIC VALVE: NORMAL AORTIC VALVE: NORMAL PERICARDIAL EFFUSION: NONE AORTIC ROOT: NORMAL LEFT VENTRICULAR WALL MOTION: NORMAL DOPPLER/COLOR FLOW: MILD TRICUSPID REGURGITATION. COMMENTS: 1. NORMAL LEFT VENTRICULAR EJECTION FRACTION 55-60%. 2. NORMAL WALL MOTION. 3. MILD TRICUSPID REGURGITATION. 4. DIASTOLIC DYSFUNCTION. TECHNOLOGIST: Clinton MCKENNA
[2022-11-16] MEDS: INSULIN -REGULAR HUMAN 50 UNIT/0.5 ML ML SQ SCH ×4 (07:30→20:19)
[2022-11-16] MEDS ORDERED: Meropenem 500 MG VIAL IV ONE (08:35)
[2022-11-16] MEDS ORDERED: NA CHLORIDE 0.9% 100 ML ONE (08:39)
[2022-11-16] MEDS: ASCORBIC ACID 500 MG TABLET PO SCH (08:50)
[2022-11-16] MEDS: MULTIVITAMINS,THERAPEUT 1 TAB PO SCH (08:50)
[2022-11-16] MEDS: Meropenem 500 MG in NA CHLORIDE 0.9% 100 ML IV SCH (08:50)
[2022-11-16] MEDS: SUCRALFATE 1 GM TABLET PO SCH ×4 (08:51→20:10)
[2022-11-16] MEDS: METOCLOPRAMIDE 5 MG TAB PO SCH ×4 (08:51→20:10)
[2022-11-16] MEDS: LACTOSE-REDUCED FOOD 330 ML LIQUID PO SCH ×2 (08:51→20:11)
[2022-11-16] MEDS: FINASTERIDE 5 MG TAB PO SCH (08:51)
[2022-11-16] MEDS: carvediloL 3.125 MG TAB PO SCH ×2 (08:51→20:26)
[2022-11-16] MEDS ORDERED: LACTOSE-REDUCED FOOD 330 ML LIQUID PO SCH (09:00)
--- NOTE | 2022-11-16 09:29 | P.PN ---
Subjective Date of Service: 11/16/22 Chief Complaint: Abdominal pain, nausea and vomiting and diarrhea Patient lying in bed reported feeling better. No major events upon examination. Physical Examination - Vital Signs Temperature: 97.0 F Blood Pressure: 112/56 Pulse: 78 Respirations: 18 Pulse Ox (%): 98 - Physical Exam General: Alert, In no apparent distress, Oriented x3 Respiratory: Clear to auscultation bilaterally Cardiovascular: Irregular heart rate/rhythm (A-Fib) Gastrointestinal: Normal bowel sounds Musculoskeletal: No swelling, No tenderness Integumentary: Diabetic ulcer (Left heel, dressing in place clean and dry), Pressure ulcer (sacral stage II) Neurological: Normal speech, Normal affect Urinary: Dialysis catheter, Mitchell catheter (Chronic ) - Studies Current Medications: Acetaminophen (Acetaminophen 650mg/Rect Supp) 650 mg AL Q6HP PRN PRN Reason: TEMP > 100' F Allopurinol (Allopurinol 100 Mg Tab) 50 mg PO M,W,F [facility] Last Admin: 11/14/22 16:04 Dose: 50 mg Ascorbic Acid (Ascorbic Acid 500 Mg Tablet) 1,000 mg PO DAILY [facility] Last Admin: 11/16/22 08:50 Dose: 1,000 mg Atorvastatin Calcium (Atorvastatin 80 Mg Tab) 80 mg PO BEDTIME [facility] Last Admin: 11/15/22 21:00 Dose: Not Given Carvedilol (Carvedilol 3.125 Mg Tab) 3.125 mg PO BID [facility] Last Admin: 11/16/22 08:51 Dose: 3.125 mg Epoetin Andrew (Epoetin Andrew 10,000 Unit/Ml Vial) 10,000 unit IV EVERY HD [facility] Last Admin: 11/15/22 17:15 Dose: 10,000 unit Finasteride (Finasteride 5 Mg Tab) 5 mg PO DAILY [facility] Last Admin: 11/16/22 08:51 Dose: 5 mg Heparin Sodium (Porcine) (Heparin 1,000 Unit/Ml Vial) 0 unit IV PRN PRN PRN Reason: Heparin Re-Bolus Per Protocol Last Admin: 11/16/22 01:57 Dose: 3,000 unit Hydralazine HCl (Hydralazine Hcl 20 Mg/Ml Vial) 10 mg IV Q6HP PRN PRN Reason: Titrate to SBP (MUST DEFINE) Last Admin: 11/13/22 01:48 Dose: 10 mg Sodium Chloride (Sodium Chloride) 250 mls @ 0 mls/hr IV .Q0M [facility] Meropenem 500 mg/ Sodium (Chloride) 100 mls @ 200 mls/hr IV DAILY [facility] Last Admin: 11/16/22 08:50 Dose: 100 mls Vancomycin HCl 1 gm/ Sodium (Chloride) 250 mls @ 250 mls/hr IVPB AFTER EACH DIALYSIS [facility] Last Admin: 11/15/22 22:42 Dose: 250 mls Heparin Sodium/Dextrose (Heparin Drip 25,000 Units/5oo Ml Premix) 25,000 unit in 500 mls @ 0 mls/hr IV UD [facility]; Protocol Last Admin: 11/15/22 21:14 Dose: 500 mls Insulin Human Regular (Insulin -Regular Human 50 Unit/0.5 Ml Ml) 0 unit SQ [facility]; Protocol Last Admin: 11/16/22 07:30 Dose: Not Given Metoclopramide HCl (Metoclopramide 5 Mg Tab) 5 mg PO [facility] Last Admin: 11/16/22 08:51 Dose: 5 mg Ondansetron HCl (Ondansetron 4 Mg/2 Ml Vial) 4 mg IV Q4H PRN PRN Reason: NAUSEA / VOMITING Last Admin: 11/13/22 03:28 Dose: 4 mg Pantoprazole Sodium (Pantoprazole 40mg Tablet) 40 mg PO DAILYAC [facility]; Protocol Last Admin: 11/16/22 06:30 Dose: 40 mg Sodium Chloride (Flush Normal Saline 10 Ml) 10 ml IV BID [facility] Last Admin: 11/16/22 08:51 Dose: 10 ml Sodium Chloride (Sodium Chloride 0.9% 10ml Inj) 10 ml IV UD PRN PRN Reason: Diluant Sucralfate (Sucralfate 1 Gm Tablet) [facility] Last Admin: 11/16/22 08:51 Dose: 1 gm Topiramate (Topiramate 25 Mg Tab) 25 mg PO BEDTIME [facility] Last Admin: 11/15/22 21:06 Dose: 25 mg Vitamin B Complex/Vit C/Folic Acid (Multivitamins,Therapeut 1 Tab) 1 tab PO DAILY [facility] Last Admin: 11/16/22 08:50 Dose: 1 tab Microbiology 1/ Urine: Positive - Enterococcus faecium and Morganella morganii with multi- drug resistant Assessment And Plan - Current Problems (Diagnosis) (1) Urinary tract infection associated with indwelling urethral catheter Current Visit: Yes Status: Acute Plan: Cultures: 11/09 Urine: Positive - Enterococcus faecium and Morganella morganii with multi- drug resistant Chronic indwelling mitchell catheter (exchanged 11/07) and normally follow up with [facility]. Primary team had approached the patient twice suggesting removal of catheter with the alternative of using straight catheter as needed. Patient declined again and [facility] Antibiotics: - Had Rocephin and flagyl and switched to Meropenem (Susceptible to Morganella morganii) on 11/12 added Vancomycin (Susceptible to Enterococcus faecium) on 11/13 - Recommend to continue IV Meropenem and Vancomycin - Plan -Urinary tract infection associated with indwelling urethral catheter: Recommend continue IV Meropenem and Vancomycin - Acute cholecystitis, Cholelithiasis: General surgery onboard and s/p Laparoscopic cholecystectomy and laparoscopic lysis of adhesions on 11/09 - Colitis: - ESRD on HD: Nephrology onboard and follows the patient - HTN: By primary team - A-Fib: Cardiology onboard and follows the patient - DM 2: Insulin management by primary team - Anemia of chronic disease, CKD, on chronic dialysis - Chronic indwelling catheter - Pressure ulcer of sacrum stage II - Left heel diabetic ulcer ID will closely monitoring the patient for signs of infection with fever and WBC trends Case has been discussed with Dr. Almodovar, N
--- NOTE | 2022-11-16 11:52 | PN ---
Date of Progress Note: 11/16/2022 Subjective.: The patient was admitted with low blood pressure, on the dialysis found to have cholelithiasis, status post cholecystectomy. The patient also had non-ST elevation CO, seen by Cardiology, started on aspirin. Physical Examination: Vital Signs: When I saw the patient, blood pressure 112/56, pulse of 58. Chest: Clear to auscultation. Heart: S1, S2. Systolic murmur. Abdomen: Mild tenderness on the right upper quadrant. No guarding or rebound. Extremities: No edema. Neurologic: Alert. No focality. : The patient has [place]. Laboratory Data: Hemoglobin 8.4. Sodium 138, potassium 4.1, bicarb 27, BUN 27, creatinine 3.1, calcium 8.3. Current Medications: The patient on include; 1. Epogen. 2. Meropenem. 3. Vancomycin. 4. Carvedilol 3.125 b.i.d. 5. Atorvastatin. 6. Pantoprazole. 7. Finasteride. 8. Allopurinol. 9. Vitamin C. 10. Multivitamins. Assessment And Plan: 1. End-stage renal disease, currently normal volume. The patient is status post dialysis yesterday, tolerated the dialysis. We will continue to monitor the patient. The patient is going to be scheduled for TTS. 2. Secondary hyperparathyroidism. Continue current treatment. 3. Hypertension, currently blood pressure on the lower side. We discontinued isosorbide. Continue carvedilol for the supraventricular tachycardia. We will continue to monitor the patient during the dialysis. We will use sodium module. 4. Anemia of chronic kidney disease. Continue ILENE. 5. Secondary hyperparathyroidism, stable. 6. Non-ST elevation myocardial infarction, supraventricular tachycardia. Follow up with Cardiology. Need full cardiac workup as outpatient. 7. Cholelithiasis, status post cholecystectomy. Cleared by Surgery. We will follow up. The patient cleared from the Renal standpoint for discharge planning. Time spent examining the patient [id number] reviewing data lab and radiology discussing the case with the patient placing order discussing the case with the team assembly line machine operator including nursing discussing the case with the hospitalist more than 35-minute KUSUM/NURIA Voice ID: [id number] Report ID: [id number] LASHAWN
[2022-11-16] MEDS: HYDROCODONE/APAP 5/325 MG TAB PO PRN ×2 (11:59→20:10)
--- NOTE | 2022-11-16 13:34 | P.PN ---
Subjective Date of Service: 11/16/22 Chief Complaint: Abdominal pain, nausea and vomiting and diarrhea Patient stated he finished his breakfast. He denies any nausea today 0 he was previously in sinus rhythm this morning but went into A. fib RVR this afternoon. He denies abdominal pain. Physical Examination - Vital Signs Temperature: 97.7 F Blood Pressure: 115/47 Pulse: 78 Respirations: 16 Pulse Ox (%): 99 Assessment And Plan - Current Problems (Diagnosis) (1) Acute cholecystitis Current Visit: Yes Status: Acute (2) Colitis Current Visit: Yes Status: Acute (3) End-stage renal disease on hemodialysis Current Visit: Yes Status: Chronic (4) Diabetes mellitus type 2 in obese Current Visit: Yes Status: Chronic (5) Anemia in chronic kidney disease, on chronic dialysis Current Visit: Yes Status: Acute - Plan Physical Exam: Gen: NAD, AOx3 Neck: No elevated JVD. CV: irregularly irregulary rhythm, 1+ edema Pulm: non-labored respirations, diminished at bases bilaterally, no crackles. Abd: soft, nontender, normal bowel sounds. Neuro: normal speech, normal affect, moves all extremities vitals reviewed Problem List Acute cholecystitis, cholelithiasis Colitis ESRD on HD HTN DM2 Anemia in CKD, on chronic dialysis Blood cultures: No growth to date. chronic indwelling mitchell exchanged on 11/07; recommended removal given low UOP and on HD;; pt opted to f/u at [facility]/clinic UA with bacteruria. growing morganella, resistant; and Enterococcus Antibiotics switched to IV meropenem and vancomycin. Antibiotics duration per infectious disease. ID seen patient and assisting with antibiotic management. General surgery consulted for acute vs acute on chronic cholecystitis continued with pain despite medical management s/p lap blanco on 11/09 He had nausea which has improved. Nausea secondary to possible gastritis versus uremia induced or related to UTI He is eating more now. Continue carafate. Nephrology is following for hemodialysis. 2u PRBC ordered with HD on 11/08, hgb: 6.9 and improved to 9 Afib/elevated troponin appears to be in afib, unclear if prior history, patient thinks he has been told he has afib in past. Paroxysmal afib. Cardiology is following Troponin trended up to 2744. echo is showing normal EF and grossly unremarkable. Start heparin drip. Dr. Keita recommending ischemic work-up at some point. Considering amiodarone/Sotalol if patient continues to be in afib. Insulin sliding scale for glucose. Supportive measures with antiemetics and pain management as needed. Continue Protonix. carafate Code: full Dispo: SNF for IV antibiotics. Patient has been accepted to [facility]. Time Spent Managing Pts Care (In Minutes): 36
[2022-11-16] MEDS: allopurinoL 100 MG TAB PO SCH (15:56)
--- NOTE | 2022-11-16 16:07 | PN ---
Date of Progress Note: 11/16/2022 Subjective: Seen by bedside. Continues to have a chest pain on and off, but no active chest pain at present time. Review of Systems: On and off chest pain as outlined above. No nausea, vomiting, diarrhea. He is able to eat and drink very well regular diet and he is passing gas, but no bowel movements yet. All other systems were re viewed and they were negative except for mentioned above. Physical Examination: Vital Signs: Temperature is 97.9, pulse 78, breathing at 16, blood pressure 115/47, saturating 99% r oom air. General: Pleasant elderly male, in no apparent distress. Head and Neck: Pupils are equal, reactive to light. Intact eye movements. No JVD. No cervical lym phadenopathy. Neck is supple. Thyroid is not enlarged. Lungs: Clear to auscultation bilaterally. No rhonchi, wheezing, or crackles. No accessory muscle u se. Heart: Regular rate and rhythm. No extra sounds. Abdomen: Soft, nontender. Bowel sounds positive. No organomegaly. No masses or hernia. No rigidi ty or rebound. Extremities: No edema, clubbing, or cyanosis. Intact pulses. Skin: No rash. Neurologic: Alert, awake, oriented x3. No acute focal deficits appreciated. Investigations: Troponin was trending down. His creatinine is 3.5. Assessment And Recommendations: 1.Elevated troponin with chest pain. This is elevation myocardial infarction. Continue IV heparin drip and baby aspirin and once the patient is able to eat and drink very well with good bowel movemen ts and no risk for vomiting, I will plan for coronary angiogram and this should be done before the amna luciano's discharge. We will plan to do it either tomorrow or Monday. 2.Hypertension. Blood pressure controlled. 3.End-stage renal disease. Continue hemodialysis. 4.Dyslipidemia. Continue statin. SR/MODL Voice ID: [id number] Report ID: [id number]
[2022-11-16] MEDS: TOPIRAMATE 25 MG TAB PO SCH (20:10)
[2022-11-16] MEDS: ATORVASTATIN 80 MG TAB PO SCH (20:10)
[2022-11-16] MEDS: HEPARIN/D5W 25,000 UNIT/500 ML BAG IV SCH (20:20)
[2022-11-17] MEDS: PANTOPRAZOLE 40MG TABLET PO SCH (06:30)
[2022-11-17] MEDS: INSULIN -REGULAR HUMAN 50 UNIT/0.5 ML ML SQ SCH ×4 (07:30→20:23)
[2022-11-17] MEDS: METOCLOPRAMIDE 5 MG TAB PO SCH ×4 (07:30→20:22)
[2022-11-17] MEDS: SUCRALFATE 1 GM TABLET PO SCH ×4 (07:30→20:22)
[2022-11-17] MEDS: MULTIVITAMINS,THERAPEUT 1 TAB PO SCH (09:00)
[2022-11-17] MEDS: FINASTERIDE 5 MG TAB PO SCH (09:00)
[2022-11-17] MEDS: ASPIRIN 81 MG CHEWABLE TABLET PO SCH (09:00)
[2022-11-17] MEDS: ASCORBIC ACID 500 MG TABLET PO SCH (09:00)
[2022-11-17] MEDS: carvediloL 3.125 MG TAB PO SCH ×2 (09:00→20:22)
[2022-11-17] MEDS: LACTOSE-REDUCED FOOD 330 ML LIQUID PO SCH ×2 (09:00→20:23)
--- NOTE | 2022-11-17 10:27 | P.PN ---
Subjective Date of Service: 11/17/22 Chief Complaint: Abdominal pain, nausea and vomiting and diarrhea Patient lying in bed asleep upon ID/s arrival. No major events upon examination. Physical Examination - Vital Signs Temperature: 96.9 F Blood Pressure: 114/55 Pulse: 70 Respirations: 16 Pulse Ox (%): 98 - Physical Exam General: Alert, In no apparent distress, Oriented x3 Respiratory: Clear to auscultation bilaterally Cardiovascular: No edema, Irregular heart rate/rhythm (A-fib) Gastrointestinal: Normal bowel sounds Musculoskeletal: Other (Diabetic ulcer (Left heel, dressing in place clean and dry), Pressure ulcer (sacral stage II)) Integumentary: Diabetic ulcer (Left heel, dressing in place clean and dry), Pressure ulcer (sacral stage II) Neurological: Normal speech, Normal tone, Normal affect Urinary: Mitchell catheter (chronic) - Studies Current Medications: Acetaminophen (Acetaminophen 650mg/Rect Supp) 650 mg WA Q6HP PRN PRN Reason: TEMP > 100' F Hydrocodone Bitart/Acetaminophen (Hydrocodone/Apap 5/325 Mg Tab) 1 tab PO Q6H PRN PRN Reason: Pain scale 5-7 (Moderate) Last Admin: 11/16/22 20:10 Dose: 1 tab Allopurinol (Allopurinol 100 Mg Tab) 50 mg PO M,W,F [facility] Last Admin: 11/16/22 15:56 Dose: 50 mg Ascorbic Acid (Ascorbic Acid 500 Mg Tablet) 1,000 mg PO DAILY [facility] Last Admin: 11/17/22 09:00 Dose: Not Given Aspirin (Aspirin 81 Mg Chewable Tablet) 81 mg PO DAILY [facility] Last Admin: 11/17/22 09:00 Dose: Not Given Atorvastatin Calcium (Atorvastatin 80 Mg Tab) 80 mg PO BEDTIME [facility] Last Admin: 11/16/22 20:10 Dose: 80 mg Carvedilol (Carvedilol 3.125 Mg Tab) 3.125 mg PO BID [facility] Last Admin: 11/17/22 09:00 Dose: Not Given Epoetin Andrew (Epoetin Andrew 10,000 Unit/Ml Vial) 10,000 unit IV EVERY HD [facility] Last Admin: 11/15/22 17:15 Dose: 10,000 unit Finasteride (Finasteride 5 Mg Tab) 5 mg PO DAILY [facility] Last Admin: 11/17/22 09:00 Dose: Not Given Heparin Sodium (Porcine) (Heparin 1,000 Unit/Ml Vial) 0 unit IV PRN PRN PRN Reason: Heparin Re-Bolus Per Protocol Last Admin: 11/16/22 01:57 Dose: 3,000 unit Hydralazine HCl (Hydralazine Hcl 20 Mg/Ml Vial) 10 mg IV Q6HP PRN PRN Reason: Titrate to SBP (MUST DEFINE) Last Admin: 11/13/22 01:48 Dose: 10 mg Sodium Chloride (Sodium Chloride) 250 mls @ 0 mls/hr IV .Q0M [facility] Meropenem 500 mg/ Sodium (Chloride) 100 mls @ 200 mls/hr IV DAILY [facility] Last Admin: 11/16/22 08:50 Dose: 100 mls Vancomycin HCl 1 gm/ Sodium (Chloride) 250 mls @ 250 mls/hr IVPB AFTER EACH DIALYSIS [facility] Last Admin: 11/15/22 22:42 Dose: 250 mls Heparin Sodium/Dextrose (Heparin Drip 25,000 Units/5oo Ml Premix) 25,000 unit in 500 mls @ 0 mls/hr IV UD [facility]; Protocol Last Admin: 11/16/22 20:20 Dose: 500 mls Insulin Human Regular (Insulin -Regular Human 50 Unit/0.5 Ml Ml) 0 unit SQ ACHS [facility]; Protocol Last Admin: 11/17/22 07:30 Dose: Not Given Metoclopramide HCl (Metoclopramide 5 Mg Tab) 5 mg PO [facility] Last Admin: 11/17/22 07:30 Dose: Not Given Ondansetron HCl (Ondansetron 4 Mg/2 Ml Vial) 4 mg IV Q4H PRN PRN Reason: NAUSEA / VOMITING Last Admin: 11/13/22 03:28 Dose: 4 mg Pantoprazole Sodium (Pantoprazole 40mg Tablet) 40 mg PO DAILYAC [facility]; Protocol Last Admin: 11/17/22 06:30 Dose: Not Given Sodium Chloride (Flush Normal Saline 10 Ml) 10 ml IV BID [facility] Last Admin: 11/17/22 09:00 Dose: Not Given Sodium Chloride (Sodium Chloride 0.9% 10ml Inj) 10 ml IV UD PRN PRN Reason: Diluant Sucralfate (Sucralfate 1 Gm Tablet) 1 gm PO ACHS [facility] Last Admin: 11/17/22 07:30 Dose: Not Given Topiramate (Topiramate 25 Mg Tab) 25 mg PO BEDTIME [facility] Last Admin: 11/16/22 20:10 Dose: 25 mg Vitamin B Complex/Vit C/Folic Acid (Multivitamins,Therapeut 1 Tab) 1 tab PO DAILY [facility] Last Admin: 11/17/22 09:00 Dose: Not Given Microbiology Data (last 24 hrs): Microbiology Microbiology 11/05/22 13:59 Blood - Blood Aerobic Blood Culture - Final No growth in 5 days. 11/05/22 13:59 Blood - Blood Anaerobic Blood Culture - Final No growth in 5 days. 11/09 Urine: Positive - Enterococcus faecium and Morganella morganii with multi- drug resistant Assessment And Plan - Current Problems (Diagnosis) (1) Urinary tract infection associated with indwelling urethral catheter Current Visit: Yes Status: Acute Plan: Cultures: 11/09 Urine: Positive - Enterococcus faecium and Morganella morganii with multi- drug resistant Chronic indwelling mitchell catheter (exchanged 11/07) and normally follow up with [place] [facility]. Primary team had approached the patient twice suggesting removal of catheter with the alternative of using straight catheter as needed. Patient declined again and wanted to wait for [facility]. Antibiotics: - Had Rocephin and flagyl and switched to Meropenem (Susceptible to Morganella morganii) on 11/12 added Vancomycin (Susceptible to Enterococcus faecium) on 11/13 - Recommend to continue IV Meropenem and Vancomycin - Plan -Urinary tract infection associated with indwelling urethral catheter: Recommend continue IV Meropenem and Vancomycin - Acute cholecystitis, Cholelithiasis: General surgery onboard and s/p Laparoscopic cholecystectomy and laparoscopic lysis of adhesions on 11/09 - Colitis: - ESRD on HD: Nephrology onboard and follows the patient - HTN: By primary team - A-Fib: Cardiology onboard and follows the patient - DM 2: Insulin management by primary team - Anemia of chronic disease, CKD, on chronic dialysis - Chronic indwelling catheter - Pressure ulcer of sacrum stage II - Left heel diabetic ulcer ID will closely monitoring the patient for signs of infection with fever and WBC trends Case has been discussed with Dr. Almodovar, N
[2022-11-17] MEDS: EPOETIN ALFA 10,000 UNIT/ML VIAL IV SCH (15:45)
--- NOTE | 2022-11-17 17:01 | P.PN ---
Subjective Date of Service: 11/17/22 Chief Complaint: Abdominal pain, nausea and vomiting and diarrhea Patient has no new complaint. He denies any nausea, and tolerating his meals. He denies abdominal pain. Physical Examination - Vital Signs Temperature: 97.5 F Blood Pressure: 137/62 Pulse: 73 Respirations: 16 Pulse Ox (%): 100 Assessment And Plan - Current Problems (Diagnosis) (1) Acute cholecystitis Current Visit: Yes Status: Acute (2) Colitis Current Visit: Yes Status: Acute (3) End-stage renal disease on hemodialysis Current Visit: Yes Status: Chronic (4) Diabetes mellitus type 2 in obese Current Visit: Yes Status: Chronic (5) Anemia in chronic kidney disease, on chronic dialysis Current Visit: Yes Status: Acute - Plan Physical Exam: Gen: NAD, AOx3 Neck: No elevated JVD. CV: irregularly irregulary rhythm, 1+ edema Pulm: non-labored respirations, diminished at bases bilaterally, no crackles. Abd: soft, nontender, normal bowel sounds. Neuro: normal speech, normal affect, moves all extremities vitals reviewed Problem List Acute cholecystitis, cholelithiasis Colitis ESRD on HD HTN DM2 Anemia in CKD, on chronic dialysis Blood cultures: No growth to date. chronic indwelling mitchell exchanged on 11/07; recommended removal given low UOP and on HD;; pt opted to f/u at [facility] with bacteruria. Urine culture grew morganella and Enterococcus Antibiotics switched to IV meropenem and vancomycin. Infectious disease recommended 2 weeks of IV antibiotics. PICC line placed for IV antibiotics in the long term. General surgery consulted for acute vs acute on chronic cholecystitis continued with pain despite medical management s/p lap blanco on 11/09 He had nausea which has improved. Nausea secondary to possible gastritis versus uremia induced or related to UTI He is eating more now. Continue carafate. Nephrology is following for hemodialysis. 2u PRBC ordered with HD on 11/08, hgb: 6.9 and improved to 9 and stable. Afib/elevated troponin appears to be in afib, unclear if prior history, patient thinks he has been told he has afib in past. Paroxysmal afib. Cardiology is following Troponin trended up to 2744. echo is showing normal EF and grossly unremarkable. Start heparin drip. Dr. Keita recommended cardiac cath today. Continue Coreg. Insulin sliding scale for glucose. Supportive measures with antiemetics and pain management as needed. Continue Protonix. carafate Code: full Dispo: SNF for IV antibiotics. Patient has been accepted to [facility]. Time Spent Managing Pts Care (In Minutes): 28
--- NOTE | 2022-11-17 18:04 | PN ---
Date of Progress Note: 11/17/2022 Subjective: No active chest pain. Review of Systems: No nausea, vomiting, or diarrhea. No dysuria, polyuria, or urinary urgency. All other systems revie wed and they are negative. Physical Examination: Vital Signs: Temperature is 97.5, pulse 73, breathing at 16, blood pressure 132/62 saturating 100% o n room air. General: Pleasant, elderly male, in no distress. Head and Neck: Pupils are equal, reactive to light. Intact eye movements. No JVD. No cervical lym phadenopathy. Neck is supple. Thyroid is not enlarged. Lungs: Clear to auscultation bilaterally. No rhonchi, rales, or crackles. No accessory muscle use. Heart: Irregular. No extra sounds. Abdomen: Soft, nontender. Bowel sounds positive. No organomegaly. No masses or hernia. No rigidi ty or rebound. Extremities: No clubbing or cyanosis. Intact pulses. Skin: No rashes or nodules. Neuro: Alert, awake, oriented x3. No acute focal deficits appreciated. Investigations: Labs reviewed. Assessment/recommendation: 1.Non-ST elevation myocardial infarction. Patient had recent gallbladder surgery and he is able to eat and drink well now. We will keep him n.p.o. past midnight. We will plan for coronary angiogram tomorrow morning. 2.Hypertension. Blood pressure controlled. 3.End-stage renal disease, on hemodialysis. SR/MODL Voice ID: [id number] Report ID: [id number]
--- NOTE | 2022-11-17 18:25 | PN ---
Date of Progress Note: 11/17/2022 Subjective: Patient was admitted to the hospital with low blood pressure on dialysis, not tolerating dialysis. Patient found to have cholelithiasis, status post cholecystectomy. Patient also found to have qqi-HE-nxykdhryx TX. Patient is scheduled for cardiac cath for evaluation. Physical Examination: Vital Signs: When I saw the patient, blood pressure 137/62, pulse of 73. Chest: Clear to auscultation. Heart: S1, S2. Systolic murmur. Abdomen: Soft, nontender. Extremities: Trace edema. Neurologic: Alert. No focality. Laboratory Data: Hemoglobin 8.4. Sodium 138, potassium 4.1, bicarb 27, BUN 27, creatinine 3.1, calc ium 8.3. Current Medications: The patient on include: 1.Meropenem. 2.Vancomycin. 3.Epogen. 4.Heparin drip. 5.Atorvastatin 80. 6.Carvedilol 3.125. 7.Hydralazine. 8.Metoclopramide. 9.Pantoprazole. Assessment And Plan: 1.End-stage renal disease with low blood pressure during the dialysis. We will continue using sodiu m module and mannitol for blood pressure support with low temperature and we will follow up. 2.Hypertension, currently hypotensive during the dialysis. We will continue to use p.r.n. midodrine before dialysis. 3.Pnd-TT-qgwkuxphg myocardial infarction. Plan for cardiac cath. Continue heparin. 4.Anemia of chronic kidney disease. Continue ILENE. 5.Cholelithiasis, status post cholecystectomy. We will follow up with surgery. JEFF Voice ID: [id number] Report ID: [id number]
[2022-11-17] MEDS: ATORVASTATIN 80 MG TAB PO SCH (20:22)
[2022-11-17] MEDS: TOPIRAMATE 25 MG TAB PO SCH (20:22)
[2022-11-17] MEDS: HEPARIN/D5W 25,000 UNIT/500 ML BAG IV SCH (20:23)
[2022-11-18] MEDS: PANTOPRAZOLE 40MG TABLET PO SCH (05:04)
[2022-11-18 06:11] LABS: Absolute Lymphocytes (CBC) 0.5 K/uL (0.7-4.9); Hematocrit 23.7 % (39.6-49.0); Lymphocytes % 13.1 % (15.3-44.8); MCV 86.5 fL (80-100); MPV 7.7 fL (7.6-11.3); RBC Red Blood Cell Count 2.74 M/uL (4.33-5.43)
[2022-11-18 06:25] LABS: Potassium 4.4 mmol/L (3.5-5.1)
[2022-11-18] MEDS: SUCRALFATE 1 GM TABLET PO SCH ×4 (07:30→21:26)
[2022-11-18] MEDS: METOCLOPRAMIDE 5 MG TAB PO SCH ×4 (07:30→21:28)
[2022-11-18] MEDS: INSULIN -REGULAR HUMAN 50 UNIT/0.5 ML ML SQ SCH ×4 (07:30→21:00)
[2022-11-18 07:38] LABS: Anisocytosis 2+; Blood Morphology Comment NOTED (NOT SEEN); Macrocytosis 1+; Platelet Estimate DECR
[2022-11-18 07:39] LABS: Basophilic Stippling 1+
[2022-11-18] MEDS: ASCORBIC ACID 500 MG TABLET PO SCH (09:00)
[2022-11-18] MEDS: FINASTERIDE 5 MG TAB PO SCH (09:00)
[2022-11-18] MEDS: LACTOSE-REDUCED FOOD 330 ML LIQUID PO SCH ×2 (09:00→21:00)
[2022-11-18] MEDS: ASPIRIN 81 MG CHEWABLE TABLET PO SCH (09:00)
[2022-11-18] MEDS: carvediloL 3.125 MG TAB PO SCH ×2 (09:00→21:28)
[2022-11-18] MEDS: MULTIVITAMINS,THERAPEUT 1 TAB PO SCH (09:00)
[2022-11-18] MEDS ORDERED: HEPARIN 5000 UNIT/ML 1 ML VIAL ONE (12:13)
[2022-11-18] MEDS ORDERED: VERAPAMIL HCL 10 MG/4 ML VIAL IV ONE (12:13)
[2022-11-18] MEDS ORDERED: FENTANYL CITR 100 MCG/2 ML ONE (12:13)
[2022-11-18] MEDS ORDERED: HEPA 1000U/500MLS 2,000 UNIT/1,000 ML BAG IV ONE (12:13)
[2022-11-18] MEDS ORDERED: MIDAZOLAM HCL 2 MG/2 ML INJ ONE (12:13)
[2022-11-18] MEDS ORDERED: NITROGLYCERIN/D5W 25 MG/250 ML BTL IV ONE (12:14)
[2022-11-18] MEDS ORDERED: ATROPINE SULF 1 MG/10 ML SYR IV ONE (12:14)
[2022-11-18] MEDS ORDERED: HEPARIN 10,000 UNIT/10 ML VIAL IV ONE (12:14)
[2022-11-18] MEDS ORDERED: NITROGLYCERIN 100 MCG/ML SYR (for cath lab use only) IV ONE (12:14)
[2022-11-18] MEDS ORDERED: CLOPIDOGREL 75 MG TABLET ONE (12:15)
[2022-11-18] MEDS ORDERED: TICAGRELOR 90 MG TABLET PO ONE (12:15)
[2022-11-18] MEDS ORDERED: NA CHLORIDE 0.9% 500 ML ONE (12:20)
--- NOTE | 2022-11-18 14:53 | P.PN ---
Subjective Date of Service: 11/18/22 Chief Complaint: Abdominal pain, nausea and vomiting and diarrhea Physical Examination - Vital Signs Temperature: 97.2 F Blood Pressure: 123/40 Pulse: 71 Respirations: 16 Pulse Ox (%): 98 Assessment And Plan - Plan 1. ESRD on HD. Next HD tomorrow per qTTS sked. Midodrine or NS or IV albumin prn for intradialytic hypotension. 2. Hypertension. Cont current med regimen. 3. Acute cholecystitis. S/p lap blanco on 11/09/22. Per Surgical service. 4. Anemia. Monitor cbc. Retacrit SQ qTTS. 5. DM2. Mngt per primary team. 6. AMS, Wernicke encephalopathy. Per other services. Renal vit po daily. 7. Obo-ID-wvcmrwums myocardial infarction. S/p LHC on 11/18/22. Cardio recs: PCI with shock wave of the LAD and then left circumflex.
[2022-11-18] MEDS: allopurinoL 100 MG TAB PO SCH (17:11)
--- NOTE | 2022-11-18 18:43 | P.PN ---
Subjective Date of Service: 11/18/22 Chief Complaint: Abdominal pain, nausea and vomiting and diarrhea Patient has no new complaint. Status post cardiac catheterization today. Physical Examination - Vital Signs Temperature: 97.9 F Blood Pressure: 138/63 Pulse: 68 Respirations: 14 Pulse Ox (%): 100 Assessment And Plan - Current Problems (Diagnosis) (1) Acute cholecystitis Current Visit: Yes Status: Acute (2) Colitis Current Visit: Yes Status: Acute (3) End-stage renal disease on hemodialysis Current Visit: Yes Status: Chronic (4) Diabetes mellitus type 2 in obese Current Visit: Yes Status: Chronic (5) Anemia in chronic kidney disease, on chronic dialysis Current Visit: Yes Status: Acute - Plan Physical Exam: Gen: NAD, AOx3 Neck: No elevated JVD. CV: irregularly irregulary rhythm, 1+ edema Pulm: non-labored respirations, diminished at bases bilaterally, no crackles. Abd: soft, nontender, normal bowel sounds. Neuro: normal speech, normal affect, moves all extremities vitals reviewed Problem List Acute cholecystitis, cholelithiasis Colitis ESRD on HD HTN DM2 Anemia in CKD, on chronic dialysis Blood cultures: No growth to date. chronic indwelling mitchell exchanged on 11/07; recommended removal given low UOP and on HD;; pt opted to f/u at [facility]/clinic UA with bacteruria. Urine culture grew morganella and Enterococcus Antibiotics switched to IV meropenem and vancomycin. Infectious disease recommended 2 weeks of IV antibiotics. PICC line placed for IV antibiotics in the retirement. General surgery consulted for acute vs acute on chronic cholecystitis continued with pain despite medical management s/p lap blanco on 11/09 He had nausea which has improved. Nausea secondary to possible gastritis versus uremia induced or related to UTI Patient with good oral and.intake. Nephrology is following for hemodialysis. 2u PRBC ordered with HD on 11/08, hgb: 6.9 and improved to 9 and stable. Afib/elevated troponin appears to be in afib, unclear if prior history, patient thinks he has been told he has afib in past. Paroxysmal afib. Cardiology Dr. Keita is following Troponin trended up to 2744. echo is showing normal EF and grossly unremarkable. Patient treated with heparin drip. Cardiac cath performed by Dr. Chakraborty showed no significant coronary artery occlusion to warrant intervention. Continue Coreg. Insulin sliding scale for glucose. Supportive measures with antiemetics and pain management as needed. Continue Protonix. carafate Code: full Dispo: SNF for IV antibiotics. Patient has been accepted to [facility]. Possible discharge in a.m. Time Spent Managing Pts Care (In Minutes): 28
--- NOTE | 2022-11-18 19:53 | PN ---
Subjective: Patient lying in bed. Denies any headache, nausea, vomiting, chest pain, abdominal pain , constipation, or diarrhea. Objective: Vital Signs: Temperature 97, pulse 68, respirations 14, blood pressure 138/63. Lungs: Basal crackles. Heart: S1, S2. Regular. Abdomen: Soft, nontender. Bowel sounds present. Extremities: No edema. Laboratory Data: WBC 3.6, hemoglobin 7.9, platelets 75. BUN of 40, creatinine 2.8. Patient current ly on Merrem and vancomycin. Urine culture Morganella morganii and E coli. Assessment And Plan: Urosepsis. End-stage renal disease. Enterococcus faecium and Morganella kelly bradley. We will continue current treatment. Follow patient closely. Anemia of chronic disease. Diabe jesica mellitus. Sacral stage II wound. Left heel diabetic ulcer. We will follow patient closely. NF/MODL Voice ID: [id number] Report ID: [id number]
--- NOTE | 2022-11-18 20:47 | OP ---
Date of Procedure: 11/18/2022 Surgeon: MYKEL BASS Procedures Performed: 1.Selective coronary angiogram. 2.Left heart catheterization. Indication: Non-ST elevation myocardial infarction. Access: Right radial artery 6-Mauritanian closed with TR band. Complications: None. Estimated Blood Loss: Bleeding less than 10 mL. Anesthesia: Total sedation time was 25 minutes, used fentanyl and Versed. Description Of Procedure: After risks, benefits, and alternatives were explained, the patient agreed to procedure and signed informed consent. The patient was brought into the cardiac catheterization laboratory and prepped and draped in usual sterile fashion. Then, I accessed the right radial artery using pediatric micropuncture kit, placed a 6-Mauritanian Slender sheath and took 5-Mauritanian [place] 4 cathet er into the aortic root, engaged left main and right coronary artery, took standard views and then th e catheter was pushed over the wire into the LV, measured the LVEDP, and pullback did not record any gradient. Then, the catheter was removed. Sheath was removed and placed TR band with good hemostasi s. Findings: 1.Left main is large and normal. 2.LAD: The mid section is diffuse, heavily calcified 80% stenosis right after diagonal branch takeo ff and then becomes small with luminal irregularities. 3.Left circumflex: Mid severe 80% stenosis, heavily calcified. 4.RCA: Large and dominant. There is heavily calcification or a stent in there, but there is about focal 40% stenosis in the mid section and then luminal irregularities and diffuse 10% to 20% stenosis . 5.Normal LVEDP between 5 and 10 mmHg. Conclusion: 1.Severe coronary artery disease of the left circumflex and the LAD as outlined above. 2.Normal LVEDP. Recommendations: PCI with shock wave of the LAD and then left circumflex. SR/MODL Voice ID: [id number] Report ID: [id number]
[2022-11-18] MEDS: ATORVASTATIN 80 MG TAB PO SCH (21:27)
[2022-11-18] MEDS: TOPIRAMATE 25 MG TAB PO SCH (21:28)
[2022-11-18] MEDS: HYDROCODONE/APAP 5/325 MG TAB PO PRN (21:32)
[2022-11-19] MEDS: PANTOPRAZOLE 40MG TABLET PO SCH (05:58)
[2022-11-19] MEDS: HYDROCODONE/APAP 5/325 MG TAB PO PRN (06:04)
[2022-11-19] MEDS: INSULIN -REGULAR HUMAN 50 UNIT/0.5 ML ML SQ SCH ×3 (07:30→16:30)
[2022-11-19] MEDS: LACTOSE-REDUCED FOOD 330 ML LIQUID PO SCH (09:00)
[2022-11-19] MEDS: ASCORBIC ACID 500 MG TABLET PO SCH (09:51)
[2022-11-19] MEDS: carvediloL 3.125 MG TAB PO SCH (09:51)
[2022-11-19] MEDS: SUCRALFATE 1 GM TABLET PO SCH ×3 (09:51→18:05)
[2022-11-19] MEDS: ASPIRIN 81 MG CHEWABLE TABLET PO SCH (09:51)
[2022-11-19] MEDS: FINASTERIDE 5 MG TAB PO SCH (09:52)
[2022-11-19] MEDS ORDERED: Meropenem 500 MG VIAL IV ONE (09:58)
[2022-11-19] MEDS: Meropenem 500 MG in NA CHLORIDE 0.9% 100 ML IV SCH ×3 (09:58→12:19)
[2022-11-19] MEDS: METOCLOPRAMIDE 5 MG TAB PO SCH ×3 (09:59→18:05)
[2022-11-19] MEDS ORDERED: NA CHLORIDE 0.9% 100 ML ONE (10:00)
[2022-11-19] MEDS: MULTIVITAMINS,THERAPEUT 1 TAB PO SCH (10:00)
[2022-11-19 10:22] VITALS: O2SAT 98
--- NOTE | 2022-11-19 12:29 | P.DS ---
Admission Date: 11/05/22 Discharge Date: 11/19/22 Disposition: ROUTINE DISCHARGE Discharge Condition: GOOD Reason for Admission: Abdominal pain, nausea and vomiting and diarrhea - Problems (1) Acute cholecystitis Current Visit: Yes Status: Acute (2) Colitis Current Visit: Yes Status: Acute (3) End-stage renal disease on hemodialysis Current Visit: Yes Status: Chronic (4) Diabetes mellitus type 2 in obese Current Visit: Yes Status: Chronic (5) Anemia in chronic kidney disease, on chronic dialysis Current Visit: Yes Status: Acute Brief History of Present Illness: 72-year-old gentleman with a history of end-stage renal disease on hemodialysis, diabetes mellitus type 2 presented to the emergency department from dialysis due to nausea and vomiting and diarrhea. He is on routine dialysis on Tuesdays and Saturdays, per report he missed dialysis on and had only 1 hour of dialysis today. Patient stated his symptoms started about 5 days ago, has not been able to eat for several days. He had an episode of vomiting in the ED. CT abdomen and pelvis done in the ED suggest distended gallbladder and acute cholecystitis as well as colitis. Blood work showed hemoglobin of 7.1. Liver enzymes not elevated. Chest x-ray showed no acute disease. He does not meet criteria for sepsis. Patient was admitted for further management. Noted patient has a chronic indwelling Mitchell catheter with minimal urine output. Hospital Course: Diagnosis Acute cholecystitis, cholelithiasis Colitis ESRD on HD HTN DM2 Anemia in CKD, on chronic dialysis Patient admitted to the medical floor and treated with antibiotics. Blood cultures: No growth to date. Patient has chronic indwelling mitchell. He resisted catheter removal despite patient makes only minimal amount of urine and he is on dialysis. Patient was m karlos aware indwelling Mitchell catheter increases his risk of urinary tract infection. Patient still resistant to removal. Catheter was exchanged on 11/07. He opted to f/u at [facility]clinic for Mitchell catheter discontinuation. UA with bacteruria. Urine culture grew morganella and Enterococcus Seen by infectious disease ,antibiotics switched to IV meropenem and vancomycin. Infectious disease recommended 2 weeks of IV antibiotics. PICC line placed for IV antibiotics in the [facility]. General surgery consulted for acute vs acute on chronic cholecystitis s/p lap blanco on 11/09 He had nausea which has resolved. Nausea secondary to possible gastritis versus uremia induced or related to UTI Patient now has good oral and.intake. Nephrology saw patient for hemodialysis. 2u PRBC ordered with HD on 11/08, hgb was 6.9, improved to 9 after blood transfusion and has been stable. Afib/elevated troponin Patient had paroxysmal afib. Cardiology Dr. Keita saw him. Troponin trended up to 2744. echo is showing normal EF and grossly unremarkable. Patient treated with heparin drip. Cardiac cath performed by Dr. Keita showed: LAD: The mid section is diffuse, heavily calcified 80% stenosis right after diagonal branch takeoff and then becomes small with luminal irregularities. Left circumflex: Mid severe 80% stenosis, heavily calcified. RCA: Large and dominant. There is heavily calcification or a stent in there, but there is about focal 40% stenosis in the mid section and then luminal irregularities and diffuse 10% to 20% stenosis Continued Coreg. Was treated with heparin drip. Cardiology recommended repeat cardiac cath with shockwave and PCI. Patient to follow-up with Dr. Keita as outpatient. Blood glucose managed with insulin sliding. Of note patient's nausea also improved with Carafate and Protonix. Patient is currently asymptomatic with stable vitals. He is deemed stable for discharge after hemodialysis today. Vital Signs/Physical Exam: Temp Pulse Resp BP Pulse Ox 96.9 F 69 16 124/46 L 98 11/19/22 12:00 11/19/22 12:00 11/19/22 12:00 11/19/22 12:00 11/19/22 12:00 General: Alert, In no apparent distress, Oriented x3, Comatose HEENT: Mucous membr. moist/pink Neck: JVD not distended Respiratory: Clear to auscultation bilaterally, Normal air movement Cardiovascular: Regular rate/rhythm, Normal S1 S2 Gastrointestinal: Soft and benign, Non-distended, No tenderness Musculoskeletal: No swelling Neurological: Normal strength at 5/5 x4 extr Laboratory Data at Discharge: WBC 3.60 K/uL (4.3-10.9) L 11/18/22 06:00 Hgb 7.9 g/dL (13.6-17.9) L 11/18/22 06:00 Hct 23.7 % (39.6-49.0) L 11/18/22 06:00 Plt Count 75 K/uL (152-406) L 11/18/22 06:00 PT 12.0 SECONDS (9.5-12.5) 11/15/22 18:20 INR 1.09 11/15/22 18:20 APTT 54.6 SECONDS (24.3-36.9) H 11/18/22 06:00 Sodium 136 mmol/L (136-145) 11/18/22 06:00 Potassium 4.4 mmol/L (3.5-5.1) 11/18/22 06:00 BUN 40 mg/dL (7-18) H 11/18/22 06:00 Creatinine 2.82 mg/dL (0.70-1.30) H 11/18/22 06:00 Glucose 157 mg/dL (74-106) H 11/18/22 06:00 Phosphorus 3.0 mg/dL (2.5-4.9) 11/12/22 05:14 Magnesium 2.1 mg/dL (1.6-2.4) 11/15/22 03:59 Total Bilirubin 0.5 mg/dL (0.2-1.0) 11/15/22 03:59 AST 17 U/L (15-37) 11/15/22 03:59 ALT 15 U/L (16-61) L 11/15/22 03:59 Alkaline Phosphatase 72 U/L (45-117) 11/15/22 03:59 Lipase 100 U/L (73-393) 11/13/22 05:37 Home Medications: Allopurinol 50 mg PO M,W,F 11/06/22 Ascorbic Acid [Vitamin C] 1,000 mg PO DAILY 11/06/22 Aspirin 81 mg PO DAILY 11/06/22 Atorvastatin Calcium [Lipitor] 80 mg PO BEDTIME 11/06/22 Bumetanide 2 mg PO BID 11/06/22 Finasteride 5 mg PO DAILY 11/06/22 Furosemide 80 mg PO BID 11/06/22 Gabapentin 300 mg PO BID 11/06/22 Isosorbide Mononitrate [Isosorbide Mononitrate ER] 60 mg PO DAILY 11/06/22 Midodrine HCl 5 mg PO PRN 11/06/22 Sennosides [Senna] 8.6 mg PO DAILY 11/06/22 Tamsulosin [Flomax] 0.8 mg PO BEDTIME 11/06/22 Topiramate 25 mg PO BEDTIME 11/06/22 carvediloL [Carvedilol] 3.125 mg PO BID 11/06/22 glipiZIDE [Glipizide] 5 mg PO BID PRN 11/06/22 metOLazone [Metolazone] 5 mg PO DAILY 11/06/22 Physician Discharge Instructions: PROBLEM: UTI, CAD GOAL: Clear understanding of disease process INSTRUCTIONS:Conitnue with Merrem IV and Vancomycin with Dialysis Diet: Renal Activity: No lifting more than 10 lbs DME DME: Date Ordered: Name of Company: [facility] Services Needed: Snf Name of Company: [employer] Date or Referral: IMMUNIZATION Influenza Vaccine Indicated: No Influenza Vaccine Given: Date Given: Pneumonia Vaccine Indicated: No Pneumonia Vaccine Given: Date Given: KEep area dry for 48h then may remove outer dressing and shower. Diet: Renal Activity: No lifting more than 10 lbs Followup: Tobi Camarillo MD [ACTIVE - CAN ADMIT] - 1 Week (call for apointment to return to DR Camarillo on monday. Will remove GENEVIEVE and rashmi at that time) NONE,NONE [Primary Care Provider] - 1 Week Time spent managing pt's care (in minutes): 38
[2022-11-19 13:25] LABS: Absolute Lymphocytes (CBC) 0.3 K/uL (0.7-4.9); Hematocrit 21.6 % (39.6-49.0); MCV 87.4 fL (80-100); MPV 7.8 fL (7.6-11.3); RBC Red Blood Cell Count 2.48 M/uL (4.33-5.43)
[2022-11-19 13:49] LABS: Potassium 4.5 mmol/L (3.5-5.1)
[2022-11-19 14:10] LABS: Platelet Estimate DECR
[2022-11-19 14:11] LABS: Blood Morphology Comment NOT SEEN (NOT SEEN)
--- NOTE | 2022-11-19 15:44 | P.PN ---
Subjective Date of Service: 11/19/22 Chief Complaint: Abdominal pain, nausea and vomiting and diarrhea Subjective seen and examined during HD no overnight events can be discharged after dialysis from nephrology point of view General: AAOx3, NAD, obese HEENT PERRLA, moist mucose membrane neck: supple, no elevated JVD CHEST; CTAB, no wheezes or rales HEART : RRR. Normal S1,2 no murmur or rub Abd: soft, Nt Ext: no edema Skin : No rash 1. ESRD on HD. Cont HD TTat. Midodrine or NS or IV albumin prn for intradialytic hypotension. 2. Hypertension. Cont current med regimen. 3. Acute cholecystitis. S/p lap blanco on 11/09/22. Per Surgical service. 4. Anemia. Monitor cbc. Retacrit SQ qTTS. 5. DM2. Mngt per primary team. 6. AMS, Wernicke encephalopathy. Per other services. Renal vit po daily. 7. Oav-DW-wkrothpxz myocardial infarction. S/p LHC on 11/18/22. Cardio recs: PCI with shock wave of the LAD and then left circumflex. Physical Examination - Vital Signs Temperature: 96.9 F Blood Pressure: 124/46 Pulse: 69 Respirations: 16 Pulse Ox (%): 98
[2022-11-19 16:36] VITALS: BP 149/53; TEMP 96.8
== END 2022-11-19 18:32 | disposition home or self-care (01) | DRG 417 ==
LOC: ER 12:57 → ERHOLD 17:19 → 2ND 18:05
PROVIDERS: ADMIT Internal Medicine; ATTEND Internal Medicine
PROC: 30233N1 Transfusion of Nonautologous Red Blood Cells into Peripheral Vein, Percutaneous Approach (ICD-10-PCS; 2022-11-05)
PROC: 5A1D70Z Performance of Urinary Filtration, Intermittent, Less than 6 Hours Per Day (ICD-10-PCS; 2022-11-06)
PROC: 0DNU4ZZ Release Omentum, Percutaneous Endoscopic Approach (ICD-10-PCS; 2022-11-09)
PROC: 0DN64ZZ Release Stomach, Percutaneous Endoscopic Approach (ICD-10-PCS; 2022-11-09)
PROC: 0FT44ZZ Resection of Gallbladder, Percutaneous Endoscopic Approach (ICD-10-PCS; principal; 2022-11-09 09:30)
PROC: 4A023N7 Measurement of Cardiac Sampling and Pressure, Left Heart, Percutaneous Approach (ICD-10-PCS; 2022-11-18)
PROC: B2111ZZ Fluoroscopy of Multiple Coronary Arteries using Low Osmolar Contrast (ICD-10-PCS; 2022-11-18)
DX: K80.00 Calculus of gallbladder with acute cholecystitis without obstruction (principal); I21.4 Non-ST elevation (NSTEMI) myocardial infarction; T83.511A Infection and inflammatory reaction due to indwelling urethral catheter, initial encounter; N39.0 Urinary tract infection, site not specified; L89.623 Pressure ulcer of left heel, stage 3; N18.6 End stage renal disease; I12.0 Hypertensive chronic kidney disease with stage 5 chronic kidney disease or end stage renal disease; I47.1 Supraventricular tachycardia; E51.2 Wernicke's encephalopathy; Z16.30 Resistance to unspecified antimicrobial drugs; L97.429 Non-pressure chronic ulcer of left heel and midfoot with unspecified severity; E87.1 Hypo-osmolality and hyponatremia; E11.621 Type 2 diabetes mellitus with foot ulcer; E11.22 Type 2 diabetes mellitus with diabetic chronic kidney disease; D63.1 Anemia in chronic kidney disease; L89.152 Pressure ulcer of sacral region, stage 2; E78.5 Hyperlipidemia, unspecified; K52.3 Indeterminate colitis; I48.0 Paroxysmal atrial fibrillation; N25.0 Renal osteodystrophy; K29.70 Gastritis, unspecified, without bleeding; E66.9 Obesity, unspecified; K74.60 Unspecified cirrhosis of liver; E87.6 Hypokalemia; I95.9 Hypotension, unspecified; I25.10 Atherosclerotic heart disease of native coronary artery without angina pectoris; K66.0 Peritoneal adhesions (postprocedural) (postinfection); B96.89 Other specified bacterial agents as the cause of diseases classified elsewhere; B95.2 Enterococcus as the cause of diseases classified elsewhere; Z95.5 Presence of coronary angioplasty implant and graft; Z99.2 Dependence on renal dialysis; Z88.8 Allergy status to other drugs, medicaments and biological substances; Z68.34 Body mass index [BMI] 34.0-34.9, adult; Z79.84 Long term (current) use of oral hypoglycemic drugs; Z91.15 Patient's noncompliance with renal dialysis; Z79.82 Long term (current) use of aspirin; Z79.899 Other long term (current) drug therapy; Z20.822 Contact with and (suspected) exposure to COVID-19
CPT/HCPCS: 36415; 36430; 71045; 74018; 74176; 76937; 80048; 80053; 80069; 80076; 80202; 81001; 82947; 83605; 83690; 83735; 83880; 84100; 84132; 84484; 85025; 85027; 85610; 85730; 86706; 86850; 86900; 86901; 87040; 87077; 87086; 87088; 87186; 87340; 87811; 88304; 90935; 93005; 93306; 93458; 94760; 96365; 96366; 96372; 97110; 97161; 99251; 99285; A4216; C1893; C9113; J0330; J0360; J0461; J1644; J1815; J2001; J2250; J2370; J2405; J2550; J2704; J2710; J3010; J3370; J3475; J3480; J7030; J7040; J7050; P9016; P9047; Q5106; Q9966; U0003

== ENCOUNTER 2022-11-30 14:43 | Emergency (ER) | payer OTHER ==
--- OUTSIDE RECORDS SUMMARY | 2022-11-30 15:15 | XMS REPORT | Continuity of Care Document ---
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 07/15/18 22:49:00 CDT, Durat... D5NS 1,000 2018 No 1,000 mL, Me moria mL 9-10 Rate: 250 l 03:49: ml/hr, [place] 00 Infuse over: 4 hr, Route: IV, Dosing Weight 141.038 kg, Total Volume: 1,000, Start date: 07/15/18 22:49:00 CDT, Duration: 30 day, Stop date: 08/14/18 22:48:00 CDT, 2.64, m2 Insulin No Notes: Memoria (regular) -10 (Same as: l Titrate IV 03:49: Humulin R He rmann additive 00 and 100 unit + NovoLIN R) Sodium WASTE: F/P Chloride - Black; E 0.9% - (titrate) [place] 99 mL Trash Bin (Do not shake) Dextrose No 12.5 gm, Memor ia 50% Syringe -10 25 mL, l 03:49: Route: [place] 00 IVP, Drug Form: INJ, Dosing Weight 141.038, kg, PRN, PRN Blood Glucose Results, Start date: 07/15/18 22:49:00 CDT, Duration: 30 day, Stop date: 08/14/18 22:48:00 CDT potassium 0 No Notes: Memori a phosphate 9-10 (Same as: l 03:49: K [place] 00 Phosphate. ) Do not infuse phosphorou s concurrent ly in the same line as TPN or IVF that contains calcium. For double lumen central lines, phosphorou s may be infused in a separate lumen from TPN. 1 mMol phoshate has 1.47 mEq potassium Infuse over 4 hours Potassium No Notes: Memori a Chloride 10 (Same as: l 03:49: KCL) Jong 00 Infuse no faster than 10 mEq/hr if given peripheral ly. Magnesium No Notes: Memori a Sulfate 07-16 WASTE: F/P l 03:49: - Sink; E [place] 00 - [place] Trash Bin Glucagon No 1 mg, Memoria 07-16 Route: IM, l 03:49: Drug form: [place] 00 PDR/INJ, PRN, Dosing Weight 141.038, kg, PRN Blood Glucose Results, Start date: 07/15/18 22:49:00 CDT, Duration: 30 day, Stop date: 08/14/18 22:48:00 CDT Sodium No 1,000 mL, Memori a Chloride 07-16 Rate: 250 l 0.9% IV 03:49: ml/hr, [place] 1,000 mL 00 Infuse over: 4 hr, Route: IV, Dosing Weight 141.038 kg, Total Volume: 1,000, When Finger stick blood glucose values remain ABOVE 250 mg/dL administer until BG is less than 250 mg/dL., Start date: 07/15/18 22:49:00 CDT, Durat... D5NS 1,000 No 1,000 mL, Me moria mL 07-16 Rate: 250 l 03:49: ml/hr, [place] 00 Infuse over: 4 hr, Route: IV, [...] Syringe 9-10 25 mL, l 03:49: Route: [place] 00 IVP, Drug Form: INJ, Dosing Weight 141.038, kg, PRN, PRN Blood Glucose Results, Start date: 07/15/18 22:49:00 CDT, Duration: 30 day, Stop date: 08/14/18 22:48:00 CDT potassium 2017-0 No Notes: Memori a phosphate 9-10 (Same as: l 03:49: K [place] 00 Phosphate. ) Do not infuse phosphorou s concurrent ly in the same line as TPN or IVF that contains calcium. For double lumen central lines, phosphorou s may be infused in a separate lumen from TPN. 1 mMol phoshate has 1.47 mEq potassium Infuse over 4 hours Potassium 2017- No Notes: Memori a Chloride 9-10 (Same as: l 03:49: KCL) Infuse no faster than 10 mEq/hr if given peripheral ly. Magnesium 2017- No Notes: Memori a Sulfate 9-10 WASTE: F/P l 03:49: - Sink; E [place] 00 - [facility] Trash Bin Glucagon 2017-0 No 1 mg, Memoria 9-10 Route: IM, l 03:49: Drug form: [place] 00 PDR/INJ, PRN, Dosing Weight 141.038, kg, PRN Blood Glucose Results, Start date: 07/15/18 22:49:00 CDT, Duration: 30 day, Stop date: 08/14/18 22:48:00 CDT Sodium 2018-0 No 1,000 mL, Memori a Chloride 9-10 [...] mL 9-10 Rate: 250 l 03:49: ml/hr, Jong 00 [...] Syringe 9-10 25 mL, l 03:49: Route: [place] 00 IVP, Drug Form: INJ, Dosing Weight [...] WASTE: F/P l 03:49: - Sink; E [place] 00 - [place] Trash Bin Glucagon No [...] mL 9-10 Rate: 250 l 03:49: ml/hr, Jong 00 [...] not shake) Dextrose No 25 gm, 50 Tmi bernard 50% Syringe 9-10 mL, Route: l 03:29: IVP, Drug [place] 00 Form: INJ, Dosing Weight 141.038, kg, [...] shake) Dextrose No 25 gm, 50 Tim benrard 50% Syringe 9-10 mL, Route: l 03:29: [...] Syringe 07-15 25 mL, l 22:27: Route: [place] 00 IVP, Drug Form: INJ, Dosing Weight 141.038, kg, PRN, PRN Abnormal Lab Result, Start date: 07/15/18 17:27:00 CDT, Duration: 30 day, Stop date: 08/14/18 17:26:00 CDT, For FSBG 40 mg/dL - 60 mg/dL Insulin No 60 units) Tim bernard regular 07-15 WASTE: F/P l 22:27: - Black; E [place] 00 - [place] Trash Bin Stable for 28 days at room temperatur e Expires in days from ____Date Dextrose No 12.5 gm, Memor ia 50% Syringe 07-15 25 mL, l 22:27: Route: [place] 00 IVP, Drug Form: INJ, Dosing Weight 141.038, kg, PRN, PRN Abnormal Lab Result, Start date: 07/15/18 17:27:00 CDT, Duration: 30 day, Stop date: 08/14/18 17:26:00 CDT, For FSBG 40 mg/dL - 60 mg/dL Insulin 0 No 60 units) Tim bernard regular 07-15 WASTE: F/P l 22:27: - Black; E [place] - [place] Trash Bin Stable for 28 days at room temperatur e Expires in days from ____Date Dextrose 0 No 12.5 gm, Memor ia 50% Syringe 07-15 25 mL, l 22:27: Route: [place] 00 IVP, Drug Form: INJ, Dosing Weight 141.038, kg, PRN, PRN Abnormal Lab Result, Start date: 07/15/18 17:27:00 CDT, Duration: 30 day, Stop date: 08/14/18 17:26:00 CDT, For FSBG 40 mg/dL - 60 mg/dL Insulin 0 No 60 units) Tim bernard regular 07-15 WASTE: F/P l 22:27: - Black; E [place] - [place] Trash Bin Stable for 28 [...] FSBG 40 mg/dL - 60 mg/dL Insulin 0 No 60 units) Tim bernard regular 07-15 WASTE: F/P l 22:27: - Black; E [place] - [place] Trash Bin Stable for 28 days at room temperatur e Expires in days from ____Date albumin 20180 No Notes: Lot Tim bernard human 25% 07-15 #: l intravenous 20:41: Jong solution 00 ___ Mfg: (Same as: Plasbumin- 25) "blood product derivative " WASTE: F/P - Red; E -Red MEDICATION WASTE Product Size: 25 gm Product Wasted: ___ gm albumin No Notes: Lot Tim gann 25% 07-15 #: l intravenous 20:41: [place] solution 00 ___ Mfg: (Same as: Plasbumin- 25) "blood product derivative " WASTE: F/P - Red; E -Red MEDICATION WASTE Product Size: 25 gm Product Wasted: ___ gm albumin No Notes: Lot Tim gann 25% 07-15 #: l intravenous 20:41: [place] solution 00 ___ Mfg: (Same as: Plasbumin- 25) "blood product derivative " WASTE: F/P - Red; E -Red MEDICATION WASTE Product Size: 25 gm Product Wasted: ___ gm albumin No Notes: Lot Tim gann 25% 07-15 #: l intravenous 20:41: [place] solution 00 ___ Mfg: (Same as: Plasbumin- 25) "blood product derivative " WASTE: F/P - Red; E -Red MEDICATION WASTE Product Size: 25 gm Product Wasted: ___ gm heparin No Notes: Memoria 07-15 porcine l 18:23: heparin [place] 00 heparin No Notes: Memoria 07-15 porcine l 18:23: heparin Jong 00 heparin No Notes: Memoria 07-15 porcine l 18:23: heparin [place] 00 heparin No Notes: Memoria 07-15 porcine l 18:23: heparin [place] 00 Isolyte S No Notes: Memori a PH 7.4 07-15 (Same as: l 1,000 mL 15:48: Isolyte S Herm brie 00 PH 7.4) albumin No Notes: Maddison human 5% 07-15 LOT#: l intravenous 15:48: [place] solution 00 ___Mfg:___ ___ (Same as: Albuminar) "blood product derivative " WASTE: F/P - Red; E -Red MEDICATION WASTE Product Size: 25 gm Product Wasted: ___ gm Isolyte S No Notes: Memori a PH 7.4 07-15 (Same as: l 1,000 mL 15:48: Isolyte S Herm brie 00 PH 7.4) albumin No Notes: Maddison human 5% 07-15 LOT#: l intravenous 15:48: [place] solution 00 ___Mfg:___ ___ (Same as: Albuminar) "blood product derivative " WASTE: F/P - Red; E -Red MEDICATION WASTE Product Size: 25 gm Product Wasted: ___ gm Isolyte S No Notes: Memori a PH 7.4 07-15 (Same as: l 1,000 mL 15:48: Isolyte S Herm brie 00 PH 7.4) albumin No Notes: Maddison human 5% 07-15 LOT#: l intravenous 15:48: [place] solution 00 ___Mfg:___ ___ (Same as: Albuminar) "blood product derivative " WASTE: F/P - Red; E -Red MEDICATION WASTE Product Size: 25 gm Product Wasted: ___ gm Isolyte S No Notes: Memori a PH 7.4 07-15 (Same as: l 1,000 mL 15:48: Isolyte S Herm brie 00 PH 7.4) albumin No Notes: Maddison human 5% 07-15 LOT#: l intravenous 15:48: Jong solution 00 ___Mfg:___ ___ (Same as: Albuminar) "blood product derivative " WASTE: F/P - Red; E -Red MEDICATION WASTE Product Size: 25 gm Product Wasted: ___ gm Losartan No Notes: Memoria 07-15 (Same as: l 14:00: Cozaar) gabapentin No Notes: Memor ia 300 MG Oral 07-15 (Same as: l Capsule 14:00: Neurontin) Herm Colchicine No 0.6 mg, 1 Me moria [...] food or milk. Allopurinol No Notes: Tim bernrad 07-15 (Same as: l 14:00: Zyloprim) Losartan [...] Memoria 07-15 (Same As: l 13:30: Flomax) [place] 00 "Do Not Crush" Flomax 0 No Notes: Memoria 07-15 (Same As: l 13:30: Flomax) Jong "Do Not Crush" Flomax 0 No Notes: Memoria 07-15 (Same As: l 13:30: Flomax) [place] 00 "Do Not Crush" Insulin 2018-0 No 60 units) Tim bernard regular 07-15 WASTE: F/P l 13:02: - Black; E [place] 00 - [place] Trash Bin Stable for 28 days at room temperatur e Expires in days from ____Date Insulin 2018-0 No 60 units) Tim bernard regular 07-15 WASTE: F/P l 13:02: - Black; E [place] 00 - [place] Trash Bin Stable for 28 days at room temperatur e Expires in days from ____Date Insulin 2018-0 No 60 units) Tim bernard regular 07-15 WASTE: F/P l 13:02: - Black; E [place] 00 - [place] Trash Bin Stable for 28 days at room temperatur e Expires in days from ____Date Insulin 2018-0 No 60 units) Tim bernard regular 07-15 WASTE: F/P l 13:02: - Black; E [place] 00 - [place] Trash Bin Stable for [...] 07-15 Route: IM, l 04:20: Drug form: [place] 00 PDR/INJ, PRN, Dosing Weight 141.038, kg, PRN Blood Glucose Results, Start date: 07/14/18 23:20:00 CDT, Duration: 30 day, Stop date: 08/13/18 23:19:00 CDT Dextrose 2018-0 No 12.5 gm, Memor ia 50% Syringe 07-15 25 mL, l 04:20: Route: [place] 00 IVP, Drug Form: INJ, Dosing Weight 141.038, kg, PRN, PRN Blood Glucose Results, Start date: 07/14/18 23:20:00 CDT, Duration: 30 day, Stop date: 08/13/18 23:19:00 CDT Insulin 2018-0 No 60 units) Tim bernard regular 07-15 WASTE: F/P l 04:20: - Black; E [place] Trash Bin Stable for 28 days [...] Syringe 07-15 25 mL, l 04:20: Route: [place] 00 IVP, Drug Form: INJ, Dosing Weight 141.038, kg, PRN, PRN Blood Glucose Results, Start date: 07/14/18 23:20:00 CDT, Duration: 30 day, Stop date: 08/13/18 23:19:00 CDT Insulin 2018-0 No 60 units) Tim bernard regular 07-15 WASTE: F/P l 04:20: - Black; E [place] Trash Bin Stable for 28 days at room temperatur e Expires in days from ____Date Glucagon 2018-0 No 1 mg, Memoria 07-15 Route: IM, l 04:20: Drug form: [place] 00 PDR/INJ, PRN, Dosing Weight 141.038, kg, PRN Blood Glucose Results, Start date: 07/14/18 23:20:00 CDT, Duration: 30 day, Stop date: 08/13/18 23:19:00 CDT Dextrose 2018-0 No 12.5 gm, Memor ia 50% Syringe 07-15 25 mL, l 04:20: Route: [place] 00 IVP, Drug Form: INJ, Dosing Weight 141.038, kg, PRN, PRN Blood Glucose Results, Start date: 07/14/18 23:20:00 CDT, Duration: 30 day, Stop date: 08/13/18 23:19:00 CDT Insulin 2018-0 No 60 units) Tim bernard regular 07-15 WASTE: F/P l 04:20: - Black; E [place] 00 - [facility] Trash Bin Stable for 28 days at [...] day, Stop date: 08/13/18 23:19:00 CDT Streptococc 2017-0 No Notes: Tim bernard us 07-15 Shake well l pneumoniae 04:16: prior to Her nieves serotype 1 57 use (Same capsular as: antigen Prevnar diphtheria 13) [id number] protein conjugate vaccine / Streptococc us pneumoniae serotype 14 capsular antigen diphtheria [id number] protein conjugate vaccine / Streptococc us pneumoniae serotype 18C capsular antigen d Streptococc 0 No Notes: Tim bernard us 07-15 Shake well l pneumoniae 04:16: prior to Her nieves serotype 1 57 use (Same capsular as: antigen Prevnar diphtheria 13) [id number] protein conjugate vaccine / Streptococc us pneumoniae serotype 14 capsular antigen diphtheria [id number] protein conjugate vaccine / Streptococc us pneumoniae serotype 18C capsular antigen d Streptococc No Notes: Tim bernard us 07-15 Shake well l pneumoniae 04:16: prior to Her nieves serotype 1 57 use (Same capsular as: antigen Prevnar diphtheria 13) [id number] protein conjugate vaccine / Streptococc us pneumoniae serotype 14 capsular antigen diphtheria [id number] protein conjugate vaccine / Streptococc us pneumoniae serotype 18C capsular antigen d Streptococc No Notes: Tim bernard us 07-15 Shake well l pneumoniae 04:16: prior to Her nieves serotype 1 57 use (Same capsular as: antigen Prevnar diphtheria 13) [id number] protein conjugate vaccine / Streptococc us pneumoniae serotype 14 capsular antigen diphtheria [id number] protein conjugate vaccine / Streptococc us pneumoniae serotype 18C capsular antigen d atorvastati No Notes: Tim bernard n 07-15 (Same As: l 02:00: Lipitor) Saline No Notes: Memoria Flush 0.9% 07-15 preservati l 02:00: ve free. celecoxib No Notes: Memori a 07-15 NSAID. l 02:00: Please Jong 00 check indication . Not for seizure. (Same As: CeleBREX) metoprolol No Notes: Memor ia tartrate 07-15 (Same as: l 02:00: Lopressor) atorvastati No Notes: Tim bernard n 07-15 (Same As: l 02:00: Lipitor) Saline No Notes: Memoria Flush 0.9% 07-15 preservati l 02:00: ve free. celecoxib No Notes: Memori a 07-15 NSAID. l 02:00: Please Jong 00 check indication . Not for seizure. [...] en 07-14 acetaminop l 23:00: hen 4000 [place] 00 mg/day (4 gm/day). (Same as: Tylenol [...] en 07-14 acetaminop l 23:00: hen 4000 [place] 00 mg/day (4 gm/day). (Same as: Tylenol [...] 07-14 tab, PO, l Tablet 22:46: Before Jong 00 Breakfast, # 90 tab, 0 Refill(s) metoprolol Yes 100 mg = 1 M emoria tartrate 9-08 tab, PO, l 100 mg oral 22:46: BID, # 180 [place] tablet 00 tab, 0 Refill(s) Metformin 0 Yes 1,000 mg, Mem oria 9-08 PO, 0 l 22:46: Refill(s) [place] 00 losartan 50 20180 Yes 50 mg = 1 M emoria mg oral 9-08 tab, PO, l tablet 22:46: Daily, # Jong 00 90 tab, 0 Refill(s) Furosemide Yes 20 mg = 1 Me moria 20 MG Oral -08 tab, PO, l Tablet 22:46: Daily, # Jong 00 90 tab, 0 Refill(s) clopidogrel No 75 mg = 1 M emoria 75 mg oral -08 tab, PO, l tablet 22:46: Daily, # Jong 00 90 tab, 1 Refill(s) atorvastati Yes 20 mg = 1 M emoria n 20 mg - tab, PO, l oral tablet 22:46: Bedtime, # [place] 00 30 tab, 0 Refill(s) allopurinol Yes [...] oria 08 PO, 0 l 22:46: Refill(s) Jong 00 losartan 50 0 Yes 50 mg = 1 M emoria mg oral -08 tab, PO, l tablet 22:46: Daily, # Jong 00 90 tab, 0 Refill(s) Furosemide Yes 20 mg = 1 Me moria 20 MG Oral 08 tab, PO, l Tablet 22:46: Daily, # Jong 00 90 tab, 0 Refill(s) clopidogrel No 75 mg = 1 M emoria 75 mg oral 07-14 tab, PO, l tablet 22:46: Daily, # [place] 00 90 tab, 1 Refill(s) atorvastati Yes 20 mg = 1 M emoria n 20 mg 07-14 tab, PO, l oral tablet 22:46: Bedtime, # Jong 00 30 tab, 0 Refill(s) allopurinol Yes 300 mg = 1 Memoria 300 mg oral 07-14 tab, PO, l tablet 22:46: Daily, # [...] 08 tab, PO, l Tablet 22:46: Before [place] 00 Breakfast, # 90 tab, 0 Refill(s) metoprolol Yes 100 mg = 1 M emoria tartrate -08 tab, PO, l 100 mg oral 22:46: BID, # 180 [place] tablet 00 tab, 0 Refill(s) Metformin Yes 1,000 mg, Mem oria -08 PO, 0 l 22:46: Refill(s) Jong 00 losartan 50 0 Yes 50 mg = 1 M emoria mg oral 9-08 tab, PO, l tablet 22:46: Daily, # [place] 00 90 tab, 0 Refill(s) Furosemide 2017-0 Yes 20 mg = 1 Me moria [...] tab, PO, l tablet 22:46: Daily, # [place] 00 30 tab, 0 Refill(s) gabapentin No 300 mg = 1 M emoria 300 MG Oral 08 cap, PO, l Capsule 22:46: TID, # 90 [place] nn 00 cap, 0 Refill(s) Colchicine Yes 0.6 mg = 1 M emoria 0.6 MG Oral -08 tab, PO, l Tablet 22:46: Daily, # [place] 00 30 tab, 0 Refill(s) Glipizide Yes 10 mg = 1 Mem oria 10 MG Oral -08 tab, PO, l Tablet 22:46: Before Jong 00 Breakfast, # 90 tab, 0 Refill(s) metoprolol Yes 100 mg = 1 M emoria tartrate -08 tab, PO, l 100 mg oral 22:46: BID, # 180 [place] tablet 00 tab, 0 Refill(s) Metformin 0 Yes 1,000 mg, Mem oria 9-08 PO, 0 l 22:46: Refill(s) Jong 00 losartan 50 2018-0 Yes 50 mg = 1 M emoria mg oral 9-08 tab, PO, l tablet 22:46: Daily, # Jong 00 90 tab, 0 Refill(s) Furosemide 0 Yes 20 mg = 1 Me moria 20 MG Oral 9-08 tab, PO, l Tablet 22:46: Daily, # Jong 00 90 tab, 0 Refill(s) clopidogrel No 75 mg = 1 M emoria 75 mg oral 908 tab, PO, l tablet 22:46: Daily, # Jong 00 90 tab, 1 Refill(s) atorvastati Yes 20 mg = 1 M emoria n 20 mg -08 tab, PO, l oral tablet 22:46: Bedtime, # Jong 00 30 tab, 0 Refill(s) allopurinol Yes 300 mg = 1 Memoria 300 mg oral 908 tab, PO, l tablet 22:46: Daily, # [...] oria 07-14 to exceed l 22:36: 400mg/day. [place] 00 (Same As: Ultram) Oxycodone No Notes: Memori a Hydrochlori 07-14 (Same as: l de 5 MG 22:36: Roxicodone Herm brie Oral Tablet ) pregabalin No Notes: Memor ia 07-14 Same as l 22:36: Lyrica Tramadol No Notes: Not Mem oria 07-14 to exceed l 22:36: 400mg/day. [place] 00 (Same As: Ultram) Oxycodone No Notes: Memori a Hydrochlori 9-08 (Same as: l de 5 MG 22:36: Roxicodone Herm brie Oral Tablet 00 ) pregabalin No Notes: Memor ia 9-08 Same as l 22:36: Lyrica Jong 00 Tramadol No Notes: Not Mem oria 9-08 to exceed l 22:36: 400mg/day. [place] 00 (Same As: Ultram) Oxycodone No Notes: Memori a Hydrochlori 9-08 (Same as: l de 5 MG 22:36: Roxicodone Herm brie Oral Tablet 00 ) pregabalin No Notes: Memor ia 9- Same as l 22:36: Lyrica [place] 00 Tramadol No Notes: Not Mem oria 9-08 to exceed l 22:36: 400mg/day. Jong 00 (Same As: Ultram) Oxycodone No Notes: Memori a Hydrochlori -08 (Same as: l de 5 MG 22:36: Roxicodone Herm brie Oral Tablet 00 ) pregabalin No Notes: Memor ia -08 Same as l 22:36: Lyrica Saline No Notes: Memoria Flush 0.9% 07-14 preservati l 22:19: ve free. Acetaminoph No Notes: Do M emoria en 07-14 not exceed l 22:19: 4 gm/day. Jong 00 (Same as: Tylenol) Ibuprofen No Notes: Memori a - (Same as: l 22:19: Motrin) "Do Not Crush" Take with food. Docusate No Notes: Memoria - (Same as: l 22:19: Colace) (Do Not Crush) Ondansetron No Notes: Tim ebrnard 07-14 (Same as: l 22:19: Zofran) MEDICATION WASTE Product Size: 4 mg Product Wasted: ___ mg Saline No Notes: Memoria Flush 0.9% 9-08 preservati l 22:19: ve free. Jong Acetaminoph No Notes: Do M emoria en 9- not exceed l 22:19: 4 gm/day. Jong 00 (Same as: Tylenol) Ibuprofen No Notes: Memori a 9-08 (Same as: l 22:19: Motrin) Jong 00 "Do Not Crush" Take with food. Docusate No Notes: Memoria 9-08 (Same as: l 22:19: Colace) Jong 00 (Do Not Crush) Ondansetron No Notes: Tim bernard 908 (Same as: l 22:19: Zofran) [place] 00 MEDICATION WASTE Product Size: 4 mg Product Wasted: ___ mg Saline No Notes: Memoria Flush 0.9% 9-08 preservati l 22:19: ve free. [place] Acetaminoph No Notes: Do M emoria en 07-14 not exceed l 22:19: 4 gm/day. Jong 00 (Same as: Tylenol) Ibuprofen No Notes: Memori a 9 (Same as: l 22:19: Motrin) [place] 00 "Do Not Crush" Take with food. Docusate No Notes: Memoria 9-08 (Same as: l 22:19: Colace) Jong 00 (Do Not Crush) Ondansetron No Notes: Tim bernard 908 (Same as: l 22:19: Zofran) Jong 00 MEDICATION WASTE Product Size: 4 mg Product Wasted: ___ mg Saline No Notes: Memoria Flush 0.9% 9-08 preservati l 22:19: ve free. [place] Acetaminoph No Notes: Do M emoria en 9 not exceed l 22:19: 4 gm/day. [place] (Same as: Tylenol) Ibuprofen No Notes: Memori a 9-08 (Same as: l 22:19: Motrin) [place] 00 "Do Not Crush" Take with food. Docusate 2018-0 No Notes: Memoria 07-14 (Same as: l 22:19: Colace) [place] 00 (Do Not Crush) Ondansetron 2017-0 No Notes: Tim bernard 07-14 (Same as: l 22:19: Zofran) Jong 00 MEDICATION WASTE Product Size: 4 mg Product Wasted: ___ mg iodixanol 2017-0 No 150 mL, Memor ia 07-14 Route: l 20:23: IVP, Drug Jong Form: SOLN, Dosing Weight 141.364, kg, ONCALL, STAT, Start date: 07/14/18 15:23:00 CDT, Duration: 1 doses or times, Dose = 2.2ml/kg, Max dose = 150ml -- "To be infused by Radiology Staff ONLY" iodixanol 2017-0 No 150 mL, Memor ia 07-14 Route: l 20:23: IVP, Drug Jong Form: SOLN, Dosing Weight 141.364, kg, ONCALL, STAT, Start date: 07/14/18 15:23:00 CDT, Duration: 1 doses or times, Dose = 2.2ml/kg, Max dose = 150ml -- "To be infused by Radiology Staff ONLY" iodixanol 2017-0 No 150 mL, Memor ia 07-14 Route: l 20:23: IVP, Drug [place] Form: SOLN, Dosing Weight 141.364, kg, ONCALL, STAT, Start date: 07/14/18 15:23:00 CDT, Duration: 1 doses or times, Dose = 2.2ml/kg, Max dose = 150ml -- "To be infused by Radiology Staff ONLY" iodixanol 2017-0 No 150 mL, Memor ia 07-14 Route: l 20:23: IVP, Drug Jong Form: SOLN, Dosing Weight 141.364, kg, ONCALL, STAT, Start date: 07/14/18 15:23:00 CDT, Duration: 1 doses or times, Dose = 2.2ml/kg, Max dose = 150ml -- "To be infused by Radiology Staff ONLY" Ondansetron 2017-0 No 4 mg, Memor ia 07-14 Route: l 19:53: IVP, ONCE, Jong 00 Dosing Weight 141.364, kg, Priority: STAT, Start date: 07/14/18 14:53:00 CDT, Stop date: 07/14/18 14:53:00 CDT Saline 2018-0 No Notes: Memoria Flush 0.9% 9-08 (Same as: l 19:53: BD [place] Posiflush) Ondansetron 2018-0 No 4 mg, Memor ia 9 Route: l 19:53: IVP, ONCE, Dosing Weight 141.364, kg, Priority: STAT, Start date: 07/14/18 14:53:00 CDT, Stop date: 07/14/18 14:53:00 CDT Saline 2018-0 No Notes: Memoria Flush 0.9% 9-08 (Same as: l 19:53: BD Jong Posiflush) Ondansetron 2018-0 No 4 mg, Memor ia 07-14 Route: l 19:53: IVP, ONCE, Dosing Weight 141.364, kg, Priority: STAT, Start date: 07/14/18 14:53:00 CDT, Stop date: 07/14/18 14:53:00 CDT Saline 2018-0 No Notes: Memoria Flush 0.9% 9-08 (Same as: l 19:53: BD Jong Posiflush) Ondansetron 2018-0 No 4 mg, Memor ia 07-14 Route: l 19:53: IVP, ONCE, Dosing Weight 141.364, kg, Priority: STAT, Start date: 07/14/18 14:53:00 CDT, Stop date: 07/14/18 14:53:00 CDT Saline 2017-0 No Notes: Memoria Flush 0.9% 9-08 (Same as: l 19:53: BD [place] Posiflush) Immunizations Ordered Filled Immunization Date Status Comments [facility] e Immunization Name Name Twinrix (hep a/hep 2021-07-02 Completed [facility]) 00:00:00 [facility] Twinrix (hep a/hep 2021-03-10 Completed [facility] b) 00:00:00 [facility] Twinrix (hep a/hep 2021-01-12 Completed [facility] b) 00:00:00 [facility] SARS-COV-2 COVID-19 2020-12-19 Completed [facility] of PFIZER VACCINE 00:00:00 [facility] SARS-COV-2 COVID-19 2020-11-28 Completed [facility] rs[facility] of PFIZER VACCINE 00:00:00 [facility] Zoster Vaccine 2020-10-09 Completed [facility] Recombinant 00:00:00 [facility] Influenza Virus 2020-09-03 Completed Universit y of Vaccine 00:00:00 [facility] Influenza High Dose 2020-07-29 Completed Unive rsity of 00:00:00 [facility] Zoster Vaccine 2020-07-29 Completed University of Recombinant 00:00:00 [facility] Pneumococcal 2020-05-04 Completed University o f Polysaccharide, 00:00:00 [place] [facility] PPSV23 (PNEUMOVAX) [facility] Influenza Virus 2019-12-31 Completed Universit y of Vaccine 00:00:00 [facility] Pneumococcal 2019-07-03 Completed University o f Polysaccharide, 00:00:00 [place] [facility] PPSV23 (PNEUMOVAX) Branch TDAP 2019-07-03 Completed University of 00:00:00 [facility] Pneumococcal 13 2018-06-15 Completed Universit y of Conjugate, PCV13 00:00:00 [facility] dicnv (Prevnar 13) [place] Vital Signs Vital Name Observation Time Observation Value Comments Source Weight 2021-05-26 21:00:00 128.36 KG Height 2021-05-26 21:00:00 183 CM Weight 2021-05-26 14:31:00 7.93 KG Temperature Oral (F) 2018-07-22 01:09:00 98.1 F [facility] Heart Rate 2018-07-22 01:09:00 [facility] Systolic (mm Hg) 2018-07-22 01:09:00 Tim rial Jong Diastolic (mm Hg) 2018-07-22 01:09:00 [facility] [place] Respitory Rate 2018-07-22 01:09:00 [facility] Systolic (mm Hg) 2018-07-21 23:10:00 [facility] [place] Diastolic (mm Hg) 2018-07-21 23:10:00 Mem orial Jong Respitory Rate 2018-07-21 23:10:00 Memori al Jong Temperature Oral (F) 2018-07-21 21:40:00 98.4 F [facility] Systolic (mm Hg) 2018-07-21 21:40:00 [facility] [place] Diastolic (mm Hg) 2018-07-21 21:40:00 [facility] [place] Respitory Rate 2018-07-21 21:40:00 [facility] [place] Temperature Oral (F) 2018-07-21 18:57:00 98.6 F [facility] Heart Rate 2018-07-21 18:57:00 [facility] Weight 2018-07-21 18:57:00 [facility] BMI Calculated 2018-07-21 18:57:00 [facility] [place] Height 2018-07-21 18:57:00 177.8 cm [facility] Systolic (mm Hg) 2018-07-19 17:00:00 Tim rial Jong Diastolic (mm Hg) 2018-07-19 17:00:00 Mem o[facility] Respitory Rate 2018-07-19 17:00:00 Memori [facility] Systolic (mm Hg) 2018-07-19 16:00:00 [facility] [place] Diastolic (mm Hg) 2018-07-19 16:00:00 Mem o[facility] Respitory Rate 2018-07-19 16:00:00 [facility] Respitory Rate 2018-07-19 15:00:00 [facility] Systolic (mm Hg) 2018-07-19 15:00:00 Tim rial Jong Diastolic (mm Hg) 2018-07-19 15:00:00 Mem o[facility] Temperature Oral (F) 2018-07-16 10:00:00 97.0 F [facility] Temperature Oral (F) 2018-07-16 08:00:00 96.9 F [facility] Temperature Oral (F) 2018-07-16 06:00:00 96.8 F [facility] BMI Calculated 2018-07-15 04:12:00 [facility] [place] Weight 2018-07-15 04:12:00 [facility] Height 2018-07-15 04:12:00 172.72 cm [facility] Rate 2018-07-14 19:33:00 [facility] Height 2018-07-14 19:33:00 177.8 cm [facility] Weight 2018-07-14 19:33:00 [facility] BMI Calculated 2018-07-14 19:33:00 Vinh Weller Procedures Procedure Date / Time Performed Performing Clinician Alexis simpson [id number] 2021-05-08 00:00:00 MCKRO [facility] [id number] 2021-05-08 00:00:00 NISJO [facility] [id number] 2021-05-08 00:00:00 NISJO [facility] [id number] 2021-05-04 00:00:00 UGBST [facility] [id number] 2021-03-24 00:00:00 THADH [facility] Placement of stent Олег baird BARFIELD NAUTO RED BLD CLL Butterfieldgilmand M edical [facility] Center Encounters Start End Encounter Admission Attending Care Care Encounter Source Date/Time Date/Time Type Type Clinicians Facility Department ID 2021-12-02 Outpatient 3 [id number] [facility] [id number] [facility] 12:53:07 [facility] [place] 2021-12-02 Outpatient 3 [id number] E[facility] REF [id number] [facility] 12:52:20 0910 [facility] [place] 2021-12-02 Outpatient 3 [id number] E[facility] REF [id number] [facility] 12:52:08 0909 [facility] [place] 2021-12-02 Outpatient 3 [id number] ENCPL CRD [id number] [facility] 12:29:03 0710 [facility] [place] 2021-12-02 Outpatient 3 [id number] ENCPL CRD [id number] [facility] 12:28:27 0708 [facility] [place] 2021-12-02 Outpatient 3 [id number] E[facility] REF [id number] [facility] 12:24:47 0629 [facility] [place] 2021-12-02 Outpatient 3 [id number] ENC[facility] REF [id number] [facility] 12:24:33 0628 [facility] [place] 2022-04-12 2022-04-12 MARY ANN Martinez 1.2.840.114 [id number] [facility] 00:00:00 00:00:00 of Gabriella Chaney Rena HAAS [id number] it y of [place] [id number] [facility] [address] 2022-04-07 2022-04-10 Inpatient Jatinder POE [facility] [id number] Univers 12:30:00 14:40:00 MAGALIS conteh [facility] 2022-04-07 2022-04-10 Inpatient Jatinder POE [facility] [id number] Univers 12:30:00 14:40:00 MAGALIS conteh [facility] 2022-04-07 2022-04-10 [facility] Bryant Loomis [facility] 1.2.840.1 [id number] Univers 12:30:00 14:40:00 Encounter Magalis Poe [id number] it[place] [id number] [facility] [address] 2021-08-04 2021-08-04 Outpatient [facility] [id number] 09:32:00 09:32:00 -[id number] [facility] 2021-08-03 2021-08-03 Outpatient [facility] [id number] 20:00:00 20:00:00 -[id number] [facility] 2021-08-02 2021-08-02 Outpatient [facility] [id number] 01:35:00 01:35:00 -[id number] [facility] 2021-07-30 2021-07-30 Outpatient [facility] [id number] 09:56:00 09:56:00 -[id number] [facility] 2021-07-26 2021-07-26 Outpatient [facility] [id number] 10:50:00 10:50:00 -[id number] [facility] 2021-07-23 2021-07-23 Outpatient [facility] [id number] 13:23:00 13:23:00 -[id number] [facility] 2021-07-21 2021-07-21 Outpatient [facility] [id number] 10:15:00 10:15:00 -[id number] [place] [facility] 2021-07-19 2021-07-19 Outpatient [facility] [id number] 12:37:00 12:37:00 -[id number] [place] [facility] 2021-07-12 2021-07-18 [facility] Malia Cruz [facility] 1.2.840. 114 [id number] Univers 18:29:00 15:15:00 Encounter Wendy Baez [id number] ity Dagmar Perez 4.2.7.2.686 [facility] [id number] [address] 2021-07-12 2021-07-18 Inpatient X ANA [facility] JUNIOR [id number] Univers 18:29:00 15:15:00 DAGMAR conteh [facility] 2021-06-13 2021-06-17 Emergency Fide Ndiaye [facility] 1.2.840 .114 [id number] Univers 11:17:00 16:30:00 Magalis Poe 350.1.13.10 [place] 4.2.7.2.686 [facility] [id number] [address] 2021-06-13 2021-06-13 Emergency X MAURY [facility] ERT [id number] Univers 11:17:00 11:17:00 FIDE conteh [facility] 2021-05-26 2021-05-28 Outpatient C GUERO [facility] TELE [id number] [facility] 14:26:00 15:35:00 GUERA [facility] 2021-04-28 2021-05-14 Inpatient EM Willis Dotsonh [facility]CA[facility] INTE [id number] [facility] 01:11:00 21:18:[address] [facility] 2021-04-27 2021-04-27 Emergency EM DUSTIN MontanaPM SERENITY [id number] [facility] 14:49:00 21:39:00 Briseida Garza [facility] 2021-04-22 2021-04-25 Inpatient EM Cheyenne, HCAPM SURG [id number] [facility] 13:01:00 09:50:00 Mohamed 71 [facility] 2021-04-22 2021-04-22 Outpatient DUSTIN QuinnCL LABO [id number] [facility] 20:47:00 20:47:00 Mohamed 23 [facility] 2021-03-21 2021-03-30 Inpatient EM Jason, HCAPM MED [id number] [facility] 18:51:00 14:55:00 Oladipo 20 [facility] 2021-03-20 2021-03-20 Outpatient Jason, DUSTINCL LABO [id number] [facility] 23:42:00 23:42:00 Oladipo 60 [facility] 2020-10-28 2020-10-28 Outpatient KNOW, HCABM OPLA [id number] [facility] 20:42:00 20:42:00 DOES_NOT 88 [facility] 2020-05-17 2020-05-17 Telephone Josephine Coleman 1.2.840.114 [id number] [facility] 00:00:00 00:00:00 KATLYN 350.1.13.10 it y of [facility] 4.2.7.2.686 Florentino as [id number] [facility] [address] 2020-05-17 2020-05-17 Telephone Josephine Coleman 1.2.840.114 [id number] 00:00:00 00:00:00 KATLYN 350.1.13.10 [facility] 4.2.7.2.686 [id number] [facility] 2020-05-11 2020-05-11 [facility] 1.2.840.114 [id number] [facility] 08:59:36 12:09:00 Cori Bhat 350.1.13.10 ity of [place] 4.2.7.2.686 [facility] [id number] [facility] [address] 2020-05-11 2020-05-11 [facility] 1.2.840.114 [id number] 08:59:36 12:09:00 Cori Bhat 350.1.13.10 [place] 4.2.7.2.686 [place] [id number] [facility] 2020-05-11 2020-05-11 Emergency X [facility] ERT [id number] Univers 08:59:36 08:59:36 ity of [facility] 2020-02-15 2020-02-15 Transition Mary Ann Page 1.2.840.114 [id number] Univers 00:00:00 00:00:00 of Care Roxanna Georgey 350.1.13.10 i [place] [id number] [facility] [address] 2020-02-15 2020-02-15 Transition Mary Ann Page 1.2.840.114 [id number] 00:00:00 00:00:00 of Care Roxanna Georgey 350.1.13.10 [place] 4.2.7.[id number] [facility] 2020-02-11 2020-02-14 [facility] Oscar Mckaybenedicto High 1.2.840.1 14 [id number] [facility] 14:42:07 18:40:00 Encounter Germán Sternmt Potts 350.1.13.10 ity [facility] 4.2.7.2.686 [place] [id number] [place] [id number] [place] 2020-02-11 2020-02-14 [facility] MooreDineshMckay Anila 1.2.840.1 14 [id number] 14:42:07 18:40:00 Encounter SternCharan burgess Katlyn 350.1.13.10 [facility] 4.2.7.2.686 [id number] [facility] 2020-02-11 2020-02-14 Inpatient X BRYAN [facility] ASH [id number] Univers 14:42:07 18:40:00 [facility] ity of [facility] 2018-07-21 2018-07-22 Emergency [facility] [id number] Memoria 18:52:00 01:12:00 saul soto [facility] 2018-07-21 2018-07-22 Emergency [facility] [id number] Memoria 18:52:00 01:12:00 saul soto [facility] 2018-07-21 2018-07-21 Outpatient Aznaurova-A [facility] [id number] 13:52:00 20:12:00 kirill, Ines Ortiz 2018-07-14 2018-07-19 Inpatient [facility] [id number] Memoria 19:29:00 17:30:00 r Jong 00 [facility] 2018-07-14 2018-07-19 Inpatient [facility] [id number] Memoria 19:29:00 17:30:00 [place] 00 [facility] 2018-07-14 2018-07-19 Outpatient Nolan, [facility] [id number] 14:29:00 12:30:00 Janie 00 Rhett Results Test Description Test Time Test Comments Results Result Comments Source URINE CULTURE 2021-05-29 08:40:00 Test Item Value Reference Range Interpretation Comme nts Culture Observations (test code = COB1) NO GROWTH (<1,000 CFU/ML) COMPREHENSIVE METABOLIC [id number] 06:58:00 Test Item Value Reference Range Interpretation [...] normal/abnormal . GFR 33 See_Comment L [Automated [facility] (test mL/min/1.73m\\S\\2 message] The code = GFRAA) [...] the FDA and the [employer] of the [employer] (CAP) are more stringent than those [...] (test code = RBCMOR) NORMAL BASIC METABOLIC [id number] 07:02:00 Test Item Value Reference Range Interpretation [...] normal/abnormal . GFR 34 See_Comment L [Automated [facility] (test mL/min/1.73m\\S\\2 message] The code = GFRAA) [...] mg/dL 8.3-9.5 L = 09D) BASIC METABOLIC [id number] 23:18:00 Test Item Value Reference Range Interpretation [...] normal/abnormal . GFR 39 See_Comment L [Automated [facility] (test mL/min/1.73m\\S\\2 message] The code = GFRAA) [...] mg/dL 8.3-9.5 L = 09D) HEMOGLOBIN & [id number] 23:06:00 Test Item Value Reference Range Interpretation Comments HGB (test code = HBG) 9.8 g/dL 14.0-18.0 L HCT (test code = HCT) 29.3 % 35.0-46.0 L URINALYSIS WITH [id number] 18:03:00 Test Item Value Reference Range Interpretation [...] code = USPERM) /HPF NONE HEMOGLOBIN & [id number] 17:52:00 Test Item Value Reference Range Interpretation [...] the FDA and the [employer] of [employer] (CAP) are more stringent than those required for this test. Therefore, the result should be interpreted with caution and close attention to other clinical and epidemiological data OCCULT [id number] 17:29:00 Test Item Value Reference Range Interpretation Comments Direct Exam (test code NEGATIVE FOR OCCULT = DE3) BLOOD PRO TIME AND [id number] 15:54:00 Test Item Value Reference Range Interpretation [...] Heparin. Order Code is ANTI-XA COMPREHENSIVE METABOLIC [id number] 15:50:00 Test Item Value Reference Range Interpretation [...] normal/abnormal . GFR 42 See_Comment L [Automated [facility] (test mL/min/1.73m\\S\\2 message] The code = GFRAA) [...] to interpret this result as normal/abnormal . 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.COMPARISON: None.TECHNIQUE: CT of abdomen and pelvis [...] Jacqueline Kevin MD 05/26/2021 3:26 PM CDT [id number],PLAQUE 2021-05-17 13:44:00 Test Item Value Reference Range Interpretation Comments ARTERY,PLAQUE (test code = ART) --------RUN DATE: 05/17/21 [place] - LAB PAGE 1 RUN TIME: 1344 Specimen Inquiry RUN USER: INTERFACE --------PATIENT: MI MCKENNA LOC: [facility] U #: [id number] AGE/SX: 70/M ROOM: [facility] RE04/28/21REG DR: Judd Dotson MD : 48 BED: A DIS: 05/14/21 STATUS: DIS IN TLOC: -------- SPEC #: [id number]:BALTAZAR:[id number] RECD: 05/09/21-1038 STATUS: SOUT REQ #: [id number] AVERY: 05/08/21-[address] [facility] [address]: Judd Dotson MD ENTERED: 05/09/21-1041 SP TYPE: ARTERY, PL OTHR DR: DOES_NOT KNOW Self Referred Ryne Aragon MD, Humair MD Peracha, Waseem MD Sankaranarayanan, Venkataraja n Ugbarugba,Raghavendra Whitney,Vincent ADAMSORDERED: DECAL, SURG PATH LVL 3, SURG PATH LVL 4 CODES: U30686 - PLAQUE, NOS A43269 - ATHEROSCLEROSIS I00100 - ARTERY, NOS [id number] - CERVIX EXCISION, NOS [id number] - LYMPH NODE, NOS COPIES TO: DOES_NOT KNOW [place] [address] [place] [address] [place] [address] [place] [address] [place] [address] [place] [address] [place] [address] [facility] [address] [place] [address] Tonya Black [address] [place] [address] CONTINUED ON NEXT PAGE --------RUN DATE: 05/17/21 [place] - LAB PAGE 2 RUN TIME: 1344 Specimen Inquiry RUN USER: INTERFACE --------SPEC #: [id number]:BALTAZAR:[id number] PATIENT: MI MCKENNA #[id number] (Continued) COPIES TO: (Continued) [place] [address] [place] [address] [place] [address] [place] [address] [facility] # [phone] ICD CODES: 440 - PROCEDURES: DECAL (05/09/21) SURG PATH LVL 3 (05/09/21) SURG PATH LVL 4 (05/09/21) TISSUES: A. ARTERY, NOS - RT CAROTID PLAQUE B. LYMPH NODE, NOS - RT CERVICAL LYMPH NODE CPT CODES CPT CODE(S): 55444 , 51717 , 70349 , , , , FINAL DIAGNOSIS A. Right carotid plaque, endarterectomy: CALCIFIED ATHEROSCLEROTIC PLAQUE B. Lymph node, right cervical, excision: ONE BENIGN LYMPH NODE GROSS DESCRIPTION A. Right carotid plaque. Received is a segment of yellow-zavala plaque that measures 2.7 x 1 x 0.8 cm. Sectioning reveals a heavily calcified cut surface. Custodial Foreman section submitted for decalcification as A1. B. Right cervical lymph node. The specimen consists of a single node measuring 2.5 x 1 x 0.8 cm. It is serially sectioned and submitted entirely as B1 and B2. /tc/pdb CONTINUED ON NEXT PAGE --------RUN DATE: 05/17/21 [place] - LAB PAGE 3 RUN TIME: 1344 Specimen Inquiry RUN USER: INTERFACE --------SPEC #: 21:BALTAZAR:[id number] PATIENT: MI MCKENNA #[id number] (Continued) MICROSCOPIC DESCRIPTION A. Right carotid plaque. The microscopic description is incorporated into the final diagnosis. B. Right cervical lymph node. The microscopic description is incorporated into the final diagnosis. /pdb Signed SIGNATURE ON FILE Octavia Krueger 05/17/21 1344 -------- END OF REPORT CBC W/O [id number] 12:53:00 Test Item Value Reference Range Interpretation [...] = 0.00 K/mm3 0.0-0.1 N NRBC#) WBC [id number] 12:53:00 Test Item Value Reference Range Interpretation [...] code = NORMAL NORMAL PLTMORPH) GLUCOSE BEDSIDE [id number] 11:56:00 Test Item Value Reference Range Interpretation Comments GLUCOSE BEDSIDE TESTING (test code 193 MG/DL 60-99 H = GLUBED) GLUCOSE BEDSIDE [id number] 07:46:00 Test Item Value Reference Range Interpretation Comments GLUCOSE BEDSIDE TESTING (test code 127 MG/DL 60-99 H = GLUBED) BASIC METABOLIC [id number] 07:39:00 Test Item Value Reference Range Interpretation [...] 8.7 MG/DL 8.4-10.2 N CA) CBC W/O [id number] 07:28:00 Test Item Value Reference Range Interpretation [...] = 0.00 K/mm3 0.0-0.1 N NRBC#) WBC [id number] 07:28:00 Test Item Value Reference Range Interpretation Comments RBC MORPHOLOGY REQUIRED (test code = RBCM) TOTAL CELLS COUNTED (test code = TCC) #CELLS SEGMENTED NEUTROPHILS (test code = % 36.2-73.8 SEG) LYMPHOCYTE (test code = LYMPH) % 12.9-45.1 MONOCYTE (test code = MON) % 0-11 PLATELET ESTIMATE (test code = ADEQUATE PLTEST) PLATELET MORPHOLOGY (test code = NORMAL PLTMORPH) CBC W/AUTO [id number] 07:28:00 Test Item Value Reference Range Interpretation [...] = 0.00 K/mm3 0.0-0.1 N NRBC#) WBC [id number] 07:28:00 Test Item Value Reference Range Interpretation Comments RBC MORPHOLOGY REQUIRED (test code = RBCM) TOTAL CELLS COUNTED (test code = TCC) #CELLS SEGMENTED NEUTROPHILS (test code = % 36.2-73.8 SEG) LYMPHOCYTE (test code = LYMPH) % 12.9-45.1 MONOCYTE (test code = MON) % 0-11 PLATELET ESTIMATE (test code = ADEQUATE PLTEST) PLATELET MORPHOLOGY (test code = NORMAL PLTMORPH) GLUCOSE BEDSIDE [id number] 19:24:00 Test Item Value Reference Range Interpretation Comments GLUCOSE BEDSIDE TESTING (test code 147 MG/DL 60-99 H = GLUBED) GLUCOSE BEDSIDE [id number] 15:41:00 Test Item Value Reference Range Interpretation Comments GLUCOSE BEDSIDE TESTING (test code 156 MG/DL 60-99 H = GLUBED) COVID 19 Asymptomatic IH [id number] 13:49:00 Test Item Value Reference Range Interpretation [...] (antigen) in the sample." NT PRO-BRAIN NATRIURETIC [id number] 13:28:00 Test Item Value Reference Range Interpretation Comments NT PRO-BRAIN NATRIURETIC PEPTI 3910.0 pg/mL 0-125 H (test code = PROBNP) GLUCOSE BEDSIDE [id number] 11:15:00 Test Item Value Reference Range Interpretation Comments GLUCOSE BEDSIDE TESTING (test code 195 MG/DL 60-99 H = GLUBED) GLUCOSE BEDSIDE [id number] 07:43:00 Test Item Value Reference Range Interpretation Comments GLUCOSE BEDSIDE TESTING (test code 148 MG/DL 60-99 H = GLUBED) BASIC METABOLIC [id number] 06:59:00 Test Item Value Reference Range Interpretation [...] 8.3 MG/DL 8.4-10.2 L CA) CBC W/AUTO [id number] 06:34:00 Test Item Value Reference Range Interpretation [...] 0.00 K/mm3 0.0-0.1 N NRBC#) GLUCOSE BEDSIDE [id number] 19:29:00 Test Item Value Reference Range Interpretation Comments GLUCOSE BEDSIDE TESTING (test code 180 MG/DL 60-99 H = GLUBED) GLUCOSE BEDSIDE [id number] 16:35:00 Test Item Value Reference Range Interpretation Comments GLUCOSE BEDSIDE TESTING (test code 150 MG/DL 60-99 H = GLUBED) GLUCOSE BEDSIDE [id number] 11:44:00 Test Item Value Reference Range Interpretation Comments GLUCOSE BEDSIDE TESTING (test code 149 MG/DL 60-99 H = GLUBED) CBC W/O [id number] 10:24:00 Test Item Value Reference Range Interpretation [...] = 0.00 K/mm3 0.0-0.1 N NRBC#) WBC [id number] 10:24:00 Test Item Value Reference Range Interpretation [...] code = NORMAL NORMAL PLTMORPH) BASIC METABOLIC [id number] 07:39:00 Test Item Value Reference Range Interpretation [...] 8.0 MG/DL 8.4-10.2 L CA) CBC W/O [id number] 07:26:00 Test Item Value Reference Range Interpretation [...] = 0.00 K/mm3 0.0-0.1 N NRBC#) WBC [id number] 07:26:00 Test Item Value Reference Range Interpretation Comments RBC MORPHOLOGY REQUIRED (test code = RBCM) TOTAL CELLS COUNTED (test code = TCC) #CELLS SEGMENTED NEUTROPHILS (test code = % 36.2-73.8 SEG) LYMPHOCYTE (test code = LYMPH) % 12.9-45.1 MONOCYTE (test code = MON) % 0-11 PLATELET ESTIMATE (test code = ADEQUATE PLTEST) PLATELET MORPHOLOGY (test code = NORMAL PLTMORPH) CBC W/AUTO [id number] 07:26:00 Test Item Value Reference Range Interpretation [...] = 0.00 K/mm3 0.0-0.1 N NRBC#) WBC [id number] 07:26:00 Test Item Value Reference Range Interpretation Comments RBC MORPHOLOGY REQUIRED (test code = RBCM) TOTAL CELLS COUNTED (test code = TCC) #CELLS SEGMENTED NEUTROPHILS (test code = % 36.2-73.8 SEG) LYMPHOCYTE (test code = LYMPH) % 12.9-45.1 MONOCYTE (test code = MON) % 0-11 PLATELET ESTIMATE (test code = ADEQUATE PLTEST) PLATELET MORPHOLOGY (test code = NORMAL PLTMORPH) GLUCOSE BEDSIDE [id number] 07:17:00 Test Item Value Reference Range Interpretation Comments GLUCOSE BEDSIDE TESTING (test code 114 MG/DL 60-99 H = GLUBED) GLUCOSE BEDSIDE [id number] 19:36:00 Test Item Value Reference Range Interpretation Comments GLUCOSE BEDSIDE TESTING (test code 217 MG/DL 60-99 H = GLUBED) GLUCOSE BEDSIDE [id number] 17:34:00 Test Item Value Reference Range Interpretation Comments GLUCOSE BEDSIDE TESTING (test code 173 MG/DL 60-99 H = GLUBED) GLUCOSE BEDSIDE [id number] 11:21:00 Test Item Value Reference Range Interpretation Comments GLUCOSE BEDSIDE TESTING (test code 163 MG/DL 60-99 H = GLUBED) GLUCOSE BEDSIDE [id number] 08:07:00 Test Item Value Reference Range Interpretation Comments GLUCOSE BEDSIDE TESTING (test code 113 MG/DL 60-99 H = GLUBED) BASIC METABOLIC [id number] 05:23:00 Test Item Value Reference Range Interpretation [...] 7.7 MG/DL 8.4-10.2 L CA) CBC W/AUTO [id number] 05:12:00 Test Item Value Reference Range Interpretation [...] 0.00 K/mm3 0.0-0.1 N NRBC#) GLUCOSE BEDSIDE [id number] 20:30:00 Test Item Value Reference Range Interpretation Comments GLUCOSE BEDSIDE TESTING (test code 176 MG/DL 60-99 H = GLUBED) GLUCOSE BEDSIDE [id number] 17:18:00 Test Item Value Reference Range Interpretation Comments GLUCOSE BEDSIDE TESTING (test code 144 MG/DL 60-99 H = GLUBED) GLUCOSE BEDSIDE [id number] 11:49:00 Test Item Value Reference Range Interpretation Comments GLUCOSE BEDSIDE TESTING (test code 182 MG/DL 60-99 H = GLUBED) GLUCOSE BEDSIDE [id number] 08:13:00 Test Item Value Reference Range Interpretation Comments GLUCOSE BEDSIDE TESTING (test code 147 MG/DL 60-99 H = GLUBED) BASIC METABOLIC [id number] 05:33:00 Test Item Value Reference Range Interpretation [...] code = 7.6 MG/DL 8.4-10.2 L CA) [id number] 05:33:00 Test Item Value Reference Range Interpretation Comments PHOSPHOROUS (test code = PHOS) 4.6 MG/DL 2.5-4.5 H [id number] 05:33:00 Test Item Value Reference Range Interpretation Comments MAGNESIUM (test code = MAG) 2.0 MG/DL 1.6-2.3 N CBC W/AUTO [id number] 05:18:00 Test Item Value Reference Range Interpretation [...] 0.00 K/mm3 0.0-0.1 N NRBC#) GLUCOSE BEDSIDE [id number] 20:31:00 Test Item Value Reference Range Interpretation Comments GLUCOSE BEDSIDE TESTING (test code 240 MG/DL 60-99 H = GLUBED) GLUCOSE BEDSIDE [id number] 17:00:00 Test Item Value Reference Range Interpretation Comments GLUCOSE BEDSIDE TESTING (test code 227 MG/DL 60-99 H = GLUBED) GASTRIC,[id number] 13:37:00 Test Item Value Reference Range Interpretation Comments GASTRIC,BIOPSY (test code = GASTB) RUN DATE: 05/09/21 [place] - LAB PAGE 1 RUN TIME: 1338 Specimen Inquiry RUN USER: INTERFACE PATIENT: MI MCKENNA LOC: [facility] U #: [id number] AGE/SX: 70/M ROOM: [facility] RE04/28/21REG DR: Judd Dotson MD : 48 BED: A DIS: STATUS: ADM IN TLOC: SPEC #: [id number] RECD: 05/04/21 STATUS: KRANTHI ELIZABETH #: [id number] AVERY: 05/04/[address] [facility] [address]: Judd Dotson MD ENTERED: 05/04/21 SP TYPE: GASTRIC BX OTHR DR: DOES_NOT KNOW Self Referred Ryne Aragon MD, Humair MD Sankaranarayanan, Venkatara jan Ugbarugba, Steven C MDORDERED: SURG PATH LV 4 CODES: O26348 [id number] - STOMACH, NOS BIOPSY, NOS V03572 - GASTRIC ANTRUM COPIES TO: DOES_NOT KNOW [place] [address] [place] [address] [place] [address] [place] [address] [place] [address] [address] [id number] Liam Black nov [address] [place], [place] [id number] [place] [address] [place] [address] PROCEDURES: SURG PATH LVL 4 (05/04/21-1651) CONTINUED ON NEXT PAGE RUN DATE: 05/09/21 [facility] - LAB PAGE 2 RUN TIME: 1338 Specimen Inquiry RUN USER: INTERFACE SPEC #: [id number] PATIENT: MI MCKENNA #[id number] (Continued) TISSUES: A. GASTRIC ANTRUM - GASTRIC BX CPT CODES CPT CODE(S): 98665 , , , , , , FINAL [...] 05/09/21 1337 END OF REPORT GLUCOSE BEDSIDE [id number] 11:50:00 Test Item Value Reference Range Interpretation Comments GLUCOSE BEDSIDE TESTING (test code 200 MG/DL 60-99 H = GLUBED) GLUCOSE BEDSIDE [id number] 08:03:00 Test Item Value Reference Range Interpretation Comments GLUCOSE BEDSIDE TESTING (test code 216 MG/DL 60-99 H = GLUBED) - XR CHEST [id number] 06:07:00 [facility] 1950 Sex: M Patient Name: CLARISAMI Unit No: [id number] EXAMS: CPT CODE: [id number] XR CHEST 1V 62480 Dictation location: H37. CHEST, FRONTAL VIEW HISTORY: post op surgery FINDINGS: Since 05/08/21, left subclavian line remains in the SVC. Probable drain along the right neck extending into the upper chest. The lungs are clear. The heart is mildly enlarged. Aorta is partially calcified. Degenerative changes affect thethoracic spine. IMPRESSION: Stable left subclavian line and right neck drain. Cardiomegaly without pulmonary edema. at 0607 Reported and signed by: Manjit Ramirez MD CC: Aleksandra HAND Technologist: Sebastian Molina, RT(R) Transcrpt Date/Tm/Trnsp: 05/09/2021 (606) t.JOSER.SP17 Orig Print D/T: S: 05/09/2021 (0610) [facility] NAME: MI MCKENNA [address] [place] [address] PHYS: [place] [address] :1950 AGE: 70 SEX: M LOC: Z.SI09 A PHONE #: [phone] EXAM DATE: 05/09/2021 STATUS: ADM IN FAX #: [phone] RADIOLOGY NO: PAGE 1 Signed ReportBASIC METABOLIC [id number] 04:16:00 Test Item Value Reference Range Interpretation [...] code = 8.0 MG/DL 8.4-10.2 L CA) [id number] 04:16:00 Test Item Value Reference Range Interpretation Comments MAGNESIUM (test code = MAG) 2.1 MG/DL 1.6-2.3 N CBC W/AUTO [id number] 03:48:00 Test Item Value Reference Range Interpretation [...] 0.00 K/mm3 0.0-0.1 N NRBC#) GLUCOSE BEDSIDE [id number] 20:45:00 Test Item Value Reference Range Interpretation Comments GLUCOSE BEDSIDE TESTING (test code 287 MG/DL 60-99 H = GLUBED) GLUCOSE BEDSIDE [id number] 16:13:00 Test Item Value Reference Range Interpretation Comments GLUCOSE BEDSIDE TESTING (test code 207 MG/DL 60-99 H = GLUBED) BASIC METABOLIC [id number] 14:10:00 Test Item Value Reference Range Interpretation [...] code = 8.2 MG/DL 8.4-10.2 L CA) [id number] 14:10:00 Test Item Value Reference Range Interpretation Comments MAGNESIUM (test code = MAG) 1.9 MG/DL 1.6-2.3 N CBC W/AUTO [id number] 13:51:00 Test Item Value Reference Range Interpretation [...] K/mm3 0.0-0.1 N NRBC#) - XR CHEST [id number] 13:28:00 [facility] : 1950 Sex: M Patient Name: MI MCKENNA Unit No: [id number] EXAMS: CPT CODE: [id number] XR CHEST 1V 31296 B2 EXAM: - XR CHEST 1V HISTORY: post op surgery COMPARISON: 05/07/2021 FINDINGS: Interval placement of a left subclavian central line with its tip projected over the superior vena cava. Patchy perihilar airspace opacities. No pleural effusion or pneumothorax. The cardiac silhouette is within normal limits. No acute oss eous abnormalities. IMPRESSION: 1. Left subclavian central line in place. 2. Mild perihilar atelectasis and/or pulmonary edema. at 1328 Reported and signed by: Pranay Doe MD CC: Aleksandra HAND Technologist: Diana Delgadillo Transcrpt Date/Tm/Trnsp: 05/08/2021 (1328) t.SDR.VB7 Orig Print D/T: S: 05/08/2021 (8712) [facility] NAME: MI MCKENNA [address] [address] PHYS: [place] [address] : 1950 AGE: 70 SEX: M LOC: Z.SI09 A PHONE #: [phone] EXAM DATE: 05/08/2021 STATUS: ADM IN FAX #: [phone] RADIOLOGY NO: PAGE 1 Signed ReportGLUCOSE BEDSIDE [id number] 12:31:00 Test Item Value Reference Range Interpretation Comments GLUCOSE BEDSIDE TESTING (test code 127 MG/DL 60-99 H = GLUBED) BASIC METABOLIC [id number] 12:21:00 Test Item Value Reference Range Interpretation [...] 8.2 MG/DL 8.4-10.2 L CA) CBC W/AUTO [id number] 12:08:00 Test Item Value Reference Range Interpretation [...] K/mm3 0.0-0.1 N NRBC#) POC ARTERIAL BLOOD [id number] 12:02:00 Test Item Value Reference Range Interpretation Comments POC ARTERIAL BLOOD GAS PH 7.319 7.35-7.45 L (test code = POCPHA) POC ARTERIAL BLOOD GAS PCO2 44.0 mmHg 35.0-45.0 N (test code = QHVEJF1S) POC ARTERIAL BLOOD GAS PO2 239.3 75.0-100.0 HH (test code = YPZWH0X) POC HCO3 ARTERIAL (test 22.6 MMOL/L 20.0-26.0 N code = QPHUKK1P) POC BASE EXCESS (test code -3.3 MMOL/L -3.0-3.0 L = POCBEA) POC O2 SATURATION (test 99.8 % 92.0-98.5 H code = POCO2S) FIO2 (test code = FIO2A) 100 % 21-100 N PaO2/FiO2 (test code = 239.30 mm/Hg KHH8VHT3) SODIUM (test code = NA/ABG) 141 MMOL/L [...] code 0.74 mmol/L 0.7-2.0 N = LACTP) [id number] 12:01:00 Test Item Value Reference Range Interpretation Comments GLUCOSE (test code = GLU) 123 MG/DL 74-106 H CALL OR 7 W/ [id number] 11:44:00 Test Item Value Reference Range Interpretation Comments HEMOGLOBIN (test code = HGB) 10.6 G/DL 12.4-16.7 L CALL OR 7 W/ [id number] 11:44:00 Test Item Value Reference Range Interpretation Comments HEMATOCRIT (test code = HCT) 32.7 % 35.9-49.5 L CALL OR 7 W/ RESULTSPOC ARTERIAL BLOOD [id number] 11:21:00 Test Item Value Reference Range Interpretation Comments POC ARTERIAL BLOOD GAS PH 7.357 7.35-7.45 N (test code = POCPHA) POC ARTERIAL BLOOD GAS PCO2 40.4 mmHg 35.0-45.0 N (test code = FLYHJT6A) POC ARTERIAL BLOOD GAS PO2 181.9 75.0-100.0 H (test code = SGLXY1L) POC HCO3 ARTERIAL (test 22.6 MMOL/L 20.0-26.0 N code = SZKNFH0N) POC BASE EXCESS (test code -2.7 MMOL/L -3.0-3.0 N = POCBEA) POC O2 SATURATION (test 99.6 % 92.0-98.5 H code = POCO2S) FIO2 (test code = FIO2A) 100 % 21-100 N PaO2/FiO2 (test code = 181.90 mm/Hg WAH4EJG1) SODIUM (test code = NA/ABG) 140 MMOL/L [...] mmol/L 0.7-2.0 L = LACTP) GLUCOSE BEDSIDE [id number] 08:10:00 Test Item Value Reference Range Interpretation Comments GLUCOSE BEDSIDE TESTING (test code 109 MG/DL 60-99 H = GLUBED) GLUCOSE BEDSIDE [id number] 06:59:00 Test Item Value Reference Range Interpretation Comments GLUCOSE BEDSIDE TESTING (test code 111 MG/DL 60-99 H = GLUBED) GLUCOSE BEDSIDE [id number] 21:20:00 Test Item Value Reference Range Interpretation Comments GLUCOSE BEDSIDE TESTING (test code 147 MG/DL 60-99 H = GLUBED) GLUCOSE BEDSIDE [id number] 15:36:00 Test Item Value Reference Range Interpretation Comments GLUCOSE BEDSIDE TESTING 228 MG/DL 60-99 H Noti fied Nurse~ (test code = GLUBED) BASIC METABOLIC [id number] 15:07:00 Test Item Value Reference Range Interpretation [...] = 8.6 MG/DL 8.4-10.2 N CA) PROTHROMBIN [id number] 15:05:00 Test Item Value Reference Range Interpretation [...] myocar dial infarction. 2.0 - 3.0 3. 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 3.0 - 4.5 PTT [id number] 15:05:00 Test Item Value Reference Range Interpretation Comments PTT ACTIVATED (test code = APTT) 37.6 SECONDS 25.1-36.5 H CBC W/AUTO [id number] 14:57:00 Test Item Value Reference Range Interpretation [...] K/mm3 0.0-0.1 N NRBC#) - XR CHEST [id number] 14:56:00 [facility] : 1950 Sex: M Patient Name: MI MCKENNA Unit No: [id number] EXAMS: CPT CODE: [id number] XR CHEST 1V 20452 B2 EXAM: - XRCHEST 1V HISTORY: Vascular Bypass Preop COMPARISON: 05/05/2021 FINDINGS: The lungs are clear. No pleural effusion or pneumothorax. The cardiac silhouette is within normal limits. No acute osseous abnormalities. IMPRESSION: No acute cardiopulmonary disease. at 1456 Reported and signed by: Pranay Doe MD CC: Technologist: Ada Preciado RT (R) Transcrpt Date/Tm/Trnsp: 05/07/2021 (1626) t.JOSER.VB7 Orig Print D/T: S: 05/07/2021 (5820) [facility] NAME: MI MCKENNA [address] [address] PHYS: [place] [address] : 1950 AGE: 70 SEX: M LOC: Z.636 A PHONE #: [phone] EXAM DATE: 05/07/2021 STATUS: ADM IN FAX #: [phone] RADIOLOGY NO: PAGE 1 Signed ReportGLUCOSE BEDSIDE [id number] 11:08:00 Test Item Value Reference Range Interpretation Comments GLUCOSE BEDSIDE TESTING 157 MG/DL 60-99 H Noti fied Nurse~ (test code = GLUBED) GLUCOSE BEDSIDE [id number] 06:55:00 Test Item Value Reference Range Interpretation Comments GLUCOSE BEDSIDE TESTING 122 MG/DL 60-99 H Noti fied Nurse~ (test code = GLUBED) BASIC METABOLIC [id number] 06:07:00 Test Item Value Reference Range Interpretation [...] 8.4 MG/DL 8.4-10.2 N CA) CBC W/AUTO [id number] 06:05:00 Test Item Value Reference Range Interpretation [...] = 0.00 K/mm3 0.0-0.1 N NRBC#) DIFFERENTIAL [id number] 06:05:00 Test Item Value Reference Range Interpretation Comments RBC MORPHOLOGY REQUIRED (test code = RBCM) PLATELET ESTIMATE (test code = PLTEST) ADEQUATE PLATELET MORPHOLOGY (test code = NORMAL PLTMORPH) CBC W/AUTO [id number] 06:05:00 Test Item Value Reference Range Interpretation [...] = 0.00 K/mm3 0.0-0.1 N NRBC#) DIFFERENTIAL [id number] 06:05:00 Test Item Value Reference Range Interpretation Comments RBC MORPHOLOGY REQUIRED (test code = RBCM) PLATELET ESTIMATE (test code = PLTEST) ADEQUATE PLATELET MORPHOLOGY (test code = NORMAL PLTMORPH) GLUCOSE BEDSIDE [id number] 20:20:00 Test Item Value Reference Range Interpretation Comments GLUCOSE BEDSIDE TESTING (test code 149 MG/DL 60-99 H = GLUBED) GLUCOSE BEDSIDE [id number] 16:01:00 Test Item Value Reference Range Interpretation Comments GLUCOSE BEDSIDE TESTING 152 MG/DL 60-99 H Noti fied Nurse~ (test code = GLUBED) GLUCOSE BEDSIDE [id number] 11:23:00 Test Item Value Reference Range Interpretation Comments GLUCOSE BEDSIDE TESTING 176 MG/DL 60-99 H Noti fied Nurse~ (test code = GLUBED) GLUCOSE BEDSIDE [id number] 06:23:00 Test Item Value Reference Range Interpretation Comments GLUCOSE BEDSIDE TESTING 119 MG/DL 60-99 H Noti fied Nurse~ (test code = GLUBED) BASIC METABOLIC [id number] 05:51:00 Test Item Value Reference Range Interpretation [...] code = 8.5 MG/DL 8.4-10.2 N CA) [id number] 05:51:00 Test Item Value Reference Range Interpretation Comments PHOSPHOROUS (test code = PHOS) 3.6 MG/DL 2.5-4.5 N [id number] 05:51:00 Test Item Value Reference Range Interpretation Comments MAGNESIUM (test code = MAG) 2.2 MG/DL 1.6-2.3 N CBC W/AUTO [id number] 05:34:00 Test Item Value Reference Range Interpretation [...] 0.00 K/mm3 0.0-0.1 N NRBC#) GLUCOSE BEDSIDE [id number] 21:37:00 Test Item Value Reference Range Interpretation Comments GLUCOSE BEDSIDE TESTING (test code 148 MG/DL 60-99 H = GLUBED) GLUCOSE BEDSIDE [id number] 16:01:00 Test Item Value Reference Range Interpretation Comments GLUCOSE BEDSIDE TESTING (test code 144 MG/DL 60-99 H = GLUBED) - US RETROPERITONEAL [id number] 15:45:00 [facility] : 1950 Sex: M Patient Name: MI MCKENNA Unit No: [id number] EXAMS: CPT CODE: [id number] US RETROPERITONEAL COM [id number] EXAMINATION: Renal ultrasound INDICATION: Chronic kidney disease [...] Garduno Technologist: Gauri Yoo Transcrpt Date/Tm/Trnsp: 05/05/2021 (4086) t.JOESR.PE1 Orig Print D/T: S: 05/05/2021 (4391) [facility] NAME: MI MCKENNA [address] [address] PHYS: [place] [address] : 1950 AGE: 70 SEX: M LOC: Z.636 A PHONE #: [phone] EXAM DATE: 05/05/2021 STATUS: ADM IN FAX #: [phone] RADIOLOGY NO: PAGE 1 Signed Report PARATHYROID HORMONE [id number] 13:37:00 Test Item Value Reference Range Interpretation Comments PARATHYROID HORMONE INTACT (test 83.7 pg/mL 7.5-53.5 H code = PARAI) - XR CHEST [id number] 13:15:00 [facility] : 1950 Sex: M Patient Name: MI MCKENNA Unit No: [id number] EXAMS: CPT CODE: [id number] XR CHEST 1V 52102 EXAMINATION: - XR CHEST 1V. LOCATION: B2. [...] Symone Johnson RT(R) Transcrpt Date/Tm/Trnsp: 05/05/2021 (1315) t.JOSER.PR7 Orig Print D/T: S: 05/05/2021 (1318) [facility] NAME: MI MCKENNA [address] [address] PHYS: [place] [address] : 1950 AGE: 70 SEX: M LOC: Z.636 A PHONE #: [phone] EXAM DATE: 05/05/2021 STATUS: ADM IN FAX #: [phone] RADIOLOGY NO: PAGE 1 Signed ReportGLUCOSE BEDSIDE [id number] 11:08:00 Test Item Value Reference Range Interpretation Comments GLUCOSE BEDSIDE TESTING (test code 188 MG/DL 60-99 H = GLUBED) GLUCOSE BEDSIDE [id number] 06:02:00 Test Item Value Reference Range Interpretation Comments GLUCOSE BEDSIDE TESTING (test code 133 MG/DL 60-99 H = GLUBED) GLUCOSE BEDSIDE [id number] 18:36:00 Test Item Value Reference Range Interpretation Comments GLUCOSE BEDSIDE TESTING (test code 178 MG/DL 60-99 H = GLUBED) GLUCOSE BEDSIDE [id number] 15:31:00 Test Item Value Reference Range Interpretation Comments GLUCOSE BEDSIDE TESTING (test code 137 MG/DL 60-99 H = GLUBED) BASIC METABOLIC [id number] 06:20:00 Test Item Value Reference Range Interpretation [...] 8.5 MG/DL 8.4-10.2 N CA) GLUCOSE BEDSIDE [id number] 06:18:00 Test Item Value Reference Range Interpretation Comments GLUCOSE BEDSIDE TESTING (test code 136 MG/DL 60-99 H = GLUBED) PROTHROMBIN [id number] 06:17:00 Test Item Value Reference Range Interpretation [...] myocar dial infarction. 2.0 - 3.0 3. 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 3.0 - 4.5 CBC W/AUTO [id number] 06:14:00 Test Item Value Reference Range Interpretation [...] 0.00 K/mm3 0.0-0.1 N NRBC#) GLUCOSE BEDSIDE [id number] 01:21:00 Test Item Value Reference Range Interpretation Comments GLUCOSE BEDSIDE TESTING (test code 180 MG/DL 60-99 H = GLUBED) GLUCOSE BEDSIDE [id number] 01:21:00 Test Item Value Reference Range Interpretation Comments GLUCOSE BEDSIDE TESTING (test code 188 MG/DL 60-99 H = GLUBED) COVID 19 Asymptomatic IH [id number] 23:57:00 Test Item Value Reference Range Interpretation [...] in the sample." Spec Comments: PRE-OPGLUCOSE BEDSIDE [id number] 16:47:00 Test Item Value Reference Range Interpretation Comments GLUCOSE BEDSIDE TESTING (test code 138 MG/DL 60-99 H = GLUBED) GLUCOSE BEDSIDE [id number] 12:31:00 Test Item Value Reference Range Interpretation Comments GLUCOSE BEDSIDE TESTING (test code 143 MG/DL 60-99 H = GLUBED) PROTHROMBIN [id number] 11:49:00 Test Item Value Reference Range Interpretation [...] myocar dial infarction. 2.0 - 3.0 3. 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 3.0 - 4.5 CBC W/AUTO [id number] 11:42:00 Test Item Value Reference Range Interpretation [...] K/mm3 0.0-0.1 N NRBC#) NT PRO-BRAIN NATRIURETIC [id number] 07:22:00 Test Item Value Reference Range Interpretation Comments NT PRO-BRAIN NATRIURETIC PEPTI 2340.0 pg/mL 0-125 H (test code = PROBNP) BASIC METABOLIC [id number] 06:54:00 Test Item Value Reference Range Interpretation [...] 8.3 MG/DL 8.4-10.2 L CA) CBC W/AUTO [id number] 06:46:00 Test Item Value Reference Range Interpretation [...] 0.00 K/mm3 0.0-0.1 N NRBC#) GLUCOSE BEDSIDE [id number] 06:01:00 Test Item Value Reference Range Interpretation Comments GLUCOSE BEDSIDE TESTING (test code 117 MG/DL 60-99 H = GLUBED) FOLIC ACID BY [id number] 23:46:00 Test Item Value Reference Range Interpretation Comments FOLIC ACID BY BERNARD 5.6 ng/mL REFERENCE VALUES: (test code = FOLR) NORMAL: 2 .76 - >20 ng/ML DEFICIENT: 1.04 - 2.79 ng/ML NT PRO-BRAIN NATRIURETIC [id number] 21:51:00 Test Item Value Reference Range Interpretation Comments NT PRO-BRAIN NATRIURETIC PEPTI 2700.0 pg/mL 0-125 H (test code = PROBNP) UNABLE TO DRAW BLOOD, REASON: REC BLOOD NOTIFIED PATIENT CARE STAFF: WADE 05/02/21 AT 1705 BY Estella Malcolm AnGLUCOSE BEDSIDE [id number] 21:08:00 Test Item Value Reference Range Interpretation Comments GLUCOSE BEDSIDE TESTING (test code 199 MG/DL 60-99 H = GLUBED) GLUCOSE BEDSIDE [id number] 16:46:00 Test Item Value Reference Range Interpretation Comments GLUCOSE BEDSIDE TESTING 135 MG/DL 60-99 H Noti fied Nurse~ (test code = GLUBED) GLUCOSE BEDSIDE [id number] 12:55:00 Test Item Value Reference Range Interpretation Comments GLUCOSE BEDSIDE TESTING 168 MG/DL 60-99 H Noti fied Nurse~ (test code = GLUBED) CBC W/AUTO [id number] 08:43:00 Test Item Value Reference Range Interpretation Comments WHITE BLOOD CELL (test 4.7 K/MM3 3.8-9.8 N code = WBC) RED BLOOD CELL (test 1.98 M/MM3 3.95-5.67 LL CALLED TO Nicholas Haddox Records code = RBC) L & READBACK ON 05/02/21 AT 061 3 BY Bonnie,Chest er HEMOGLOBIN (test code 6.0 G/DL 12.4-16.7 LL CALLED TO Nicholas Haddox Records = HGB) L & READBACK ON 05/02/21 AT 061 3 BY Bonnie,Chest er HEMATOCRIT (test code 19.8 % 35.9-49.5 LL CALLED TO Nicholas Haddox Records = HCT) L & READBACK ON 05/02/21 [...] K/mm3 0.0-0.1 N code = NRBC#) DIFFERENTIAL [id number] 08:43:00 Test Item Value Reference Range Interpretation Comments RBC MORPHOLOGY REQUIRED (test code NORMAL = RBCM) PLATELET ESTIMATE (test code = DECREASED ADEQUATE PLTEST) PLATELET MORPHOLOGY (test code = NORMAL NORMAL PLTMORPH) GLUCOSE BEDSIDE [id number] 08:35:00 Test Item Value Reference Range Interpretation Comments GLUCOSE BEDSIDE TESTING 130 MG/DL 60-99 H Noti fied Nurse~ (test code = GLUBED) BASIC METABOLIC [id number] 06:24:00 Test Item Value Reference Range Interpretation [...] 8.2 MG/DL 8.4-10.2 L CA) CBC W/AUTO [id number] 06:15:00 Test Item Value Reference Range Interpretation Comments WHITE BLOOD CELL (test 4.7 K/MM3 3.8-9.8 N code = WBC) RED BLOOD CELL (test 1.98 M/MM3 3.95-5.67 LL CALLED TO Nicholas Haddox Records code = RBC) L & READBACK ON 05/02/21 AT 061 3 BY Sharifao,Chest er HEMOGLOBIN (test code 6.0 G/DL 12.4-16.7 LL CALLED TO RACHAEYA = HGB) L & READBACK ON 05/02/21 AT 061 3 BY Sharifao,Chest er HEMATOCRIT (test code 19.8 % 35.9-49.5 LL CALLED TO AppTriggerHAEYA = HCT) L & READBACK ON 05/02/21 [...] K/mm3 0.0-0.1 N code = NRBC#) DIFFERENTIAL [id number] 06:15:00 Test Item Value Reference Range Interpretation Comments RBC MORPHOLOGY REQUIRED (test code = RBCM) PLATELET ESTIMATE (test code = PLTEST) ADEQUATE PLATELET MORPHOLOGY (test code = NORMAL PLTMORPH) CBC W/AUTO [id number] 06:15:00 Test Item Value Reference Range Interpretation [...] K/mm3 0.0-0.1 N code = NRBC#) DIFFERENTIAL [id number] 06:15:00 Test Item Value Reference Range Interpretation Comments RBC MORPHOLOGY REQUIRED (test code = RBCM) PLATELET ESTIMATE (test code = PLTEST) ADEQUATE PLATELET MORPHOLOGY (test code = NORMAL PLTMORPH) PROTHROMBIN [id number] 06:02:00 Test Item Value Reference Range Interpretation [...] myocar dial infarction. 2.0 - 3.0 3. 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 3.0 - 4.5 GLUCOSE BEDSIDE [id number] 20:58:00 Test Item Value Reference Range Interpretation Comments GLUCOSE BEDSIDE TESTING (test code 195 MG/DL 60-99 H = GLUBED) NT PRO-BRAIN NATRIURETIC [id number] 20:11:00 Test Item Value Reference Range Interpretation Comments NT PRO-BRAIN NATRIURETIC PEPTI 2420.0 pg/mL 0-125 H (test code = PROBNP) PLATELET [id number] 20:03:00 Test Item Value Reference Range Interpretation Comments PLATELET COUNT (test code = PLT) 83 K/MM3 129-368 L PROTHROMBIN [id number] 20:01:00 Test Item Value Reference Range Interpretation [...] myocar dial infarction. 2.0 - 3.0 3. 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 3.0 - 4.5 PTT [id number] 20:01:00 Test Item Value Reference Range Interpretation Comments PTT ACTIVATED (test code = APTT) 32.5 SECONDS 25.1-36.5 N [id number] 20:01:00 Test Item Value Reference Range Interpretation Comments FIBRINOGEN (test code = FIB) 517 mg/dL 200-393 H [id number] 20:01:00 Test Item Value Reference Range Interpretation [...] f standard radiological pr ocedures. GLUCOSE BEDSIDE [id number] 16:40:00 Test Item Value Reference Range Interpretation Comments GLUCOSE BEDSIDE TESTING 123 MG/DL 60-99 H Noti fied Nurse~ (test code = GLUBED) - XR SHOULDER 2+V [id number] 14:22:00 [facility] 1950 Sex: M Patient Name: MI MCKENNA Unit No: [id number] EXAMS: CPT CODE: [id number] XR SHOULDER 2+[place] LT [address] Examination: Left shoulder series Location code: S17 Comparison: None Discussion: Clinical history is remarkable for fall, pain. 2 views of the left shoulder are submitted. Mineralization is appropriate. No fracture deformity or dislocation is identified. Impression: No acute finding. Electronically Regi d by Maldonado Ramos on 05/01/2021 at 1422 Reported and signed by: Sukumar Ramos M.D. CC: Technologist: Brady Priest (RT) Transcrpt Date/Tm/Trnsp: 05/01/2021 (4962) t.JH12 Orig Print D/T: S: 05/01/2021 (4000) [facility] NAME: MI MCKENNA[address] PHYS: [place] [address] : 1950 AGE: 70 SEX: M LOC: Z.636 A PHONE #: [phone] EXAM DATE: 05/01/2021 STATUS: ADM IN FAX #: [phone] RADIOLOGY NO: PAGE 1 Signed ReportGLUCOSE BEDSIDE TESTING 2021-05-01 12:02:00 Test Item Value Reference Range Interpretation Comments GLUCOSE BEDSIDE TESTING 141 MG/DL 60-99 H Noti fied Nurse~ (test code = GLUBED) PROTHROMBIN [id number] 07:46:00 Test Item Value Reference Range Interpretation [...] myocar dial infarction. 2.0 - 3.0 3. 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 3.0 - 4.5 GLUCOSE BEDSIDE [id number] 07:02:00 Test Item Value Reference Range Interpretation Comments GLUCOSE BEDSIDE TESTING 139 MG/DL 60-99 H Noti fied Nurse~ (test code = GLUBED) GLUCOSE BEDSIDE [id number] 20:40:00 Test Item Value Reference Range Interpretation Comments GLUCOSE BEDSIDE TESTING (test code 161 MG/DL 60-99 H = GLUBED) GLUCOSE BEDSIDE [id number] 15:28:00 Test Item Value Reference Range Interpretation Comments GLUCOSE BEDSIDE TESTING (test code 192 MG/DL 60-99 H = GLUBED) GLUCOSE BEDSIDE [id number] 11:21:00 Test Item Value Reference Range Interpretation Comments GLUCOSE BEDSIDE TESTING (test code 176 MG/DL 60-99 H = GLUBED) - MRA NECK W/O [id number] 10:18:00 [facility] 1950 Sex: M PatientName: MI MCKENNA Unit No: [id number] EXAMS: CPT CODE: [id number] MRA NECK W/O CONT 97935 HISTORY: Syncope Location: C3 TECHNIQUE: [id number] MR images of the neck were obtained. [...] If clinically indicated further evaluation with carotid CTAor carotid ultrasound is recommended. at 1018 Reported and signed by: Ryne Balderrama MD CC: Technologist: Edgar Cantu (RT) R (CT) (MRI) Transcrpt Date/Tm/Trnsp: 04/30/2021 (1018) [email or web address] Orig Print D/T: S: 04/30/2021 (1021) [facility] NAME: MI MCKENNA [id number] [address] PHYS: [place] [address] : 1950 AGE: 70 SEX: M LOC: [phone].[id number] A PHONE #: [phone] EXAM DATE: 04/30/2021 STATUS: ADM IN FAX #: [phone] RADIOLOGY NO: PAGE 1 Signed Report- MRI BRAIN W/O [id number] 10:09:00 [facility] : 1950 Sex: M Patient Name: MI MCKENNA Unit No: [id number] EXAMS: CPT CODE: [id number] MRI BRAIN W/O CONTRAST 53003 HISTORY: Syncope Location: C3 TECHNIQUE: Multiplanar multisequence [...] Mild mucosal thickening is in ethmoid air cellsand maxillary sinuses as well as trace fluid in the sphenoid sinus. IMPRESSION: 1. Cerebral volume loss and microvascular chronic white matter ischemic changes. No evidence of acute infarction. at 1009 Reported and signed by: Ryne Balderrama MD CC: Technologist: Edgar Cantu (RT) R (CT) (MRI) Transcrpt Date/Tm/Trnsp: 04/30/2021 (1009) [email or web address] Print D/T: S: 04/30/2021 (1012) [facility] NAME: MI MCKENNA [address] [address] PHYS: [place] [address] : 1950 AGE: 70 SEX: M LOC: [id number] PHONE #: [phone] EXAM DATE: 04/30/2021 STATUS: ADM IN FAX #: [phone] RADIOLOGY NO: PAGE 1 Signed ReportGLUCOSE BEDSIDE [id number] 06:43:00 Test Item Value Reference Range Interpretation Comments GLUCOSE BEDSIDE TESTING (test code 138 MG/DL 60-99 H = GLUBED) GLUCOSE BEDSIDE [id number] 20:13:00 Test Item Value Reference Range Interpretation Comments GLUCOSE BEDSIDE TESTING (test code 217 MG/DL 60-99 H = GLUBED) GLUCOSE BEDSIDE [id number] 16:12:00 Test Item Value Reference Range Interpretation Comments GLUCOSE BEDSIDE TESTING (test code 126 MG/DL 60-99 H = GLUBED) GLUCOSE BEDSIDE [id number] 11:17:00 Test Item Value Reference Range Interpretation Comments GLUCOSE BEDSIDE TESTING (test code 132 MG/DL 60-99 H = GLUBED) GLUCOSE BEDSIDE [id number] 07:29:00 Test Item Value Reference Range Interpretation Comments GLUCOSE BEDSIDE TESTING (test code 105 MG/DL 60-99 H = GLUBED) GLUCOSE BEDSIDE [id number] 20:29:00 Test Item Value Reference Range Interpretation Comments GLUCOSE BEDSIDE TESTING (test code 136 MG/DL 60-99 H = GLUBED) GLUCOSE BEDSIDE [id number] 17:19:00 Test Item Value Reference Range Interpretation Comments GLUCOSE BEDSIDE TESTING (test code 134 MG/DL 60-99 H = GLUBED) - XR TIBIA/FIBULA 2 V [id number] 15:29:00 [facility] 1950 Sex: M Patient Name: MI MCKENNA Unit No: [id number] EXAMS: CPT CODE: [id number] XR TIBIA/FIBULA 2 [place] [address] EXAMINATION: - XR TIBIA/FIBULA 2 V RT. [...] (1532) [facility] NAME: MI MCKENNA [address] [address] PHYS: Judd KUMAR Do, [place] [address] : 1950 AGE: 70 SEX: M LOC: [id number] A PHONE #: [phone] EXAM DATE: 04/28/2021 STATUS: ADM IN FAX #: RADIOLOGY NO: PAGE 1 Signed ReportVITAMIN [id number] 14:08:00 Test Item Value Reference Range Interpretation Comments VITAMIN B12 (test code = VITB12) 909 pg/mL 239-931 N FOLIC ACID BY [id number] 14:08:00 Test Item Value Reference Range Interpretation Comments FOLIC ACID BY BERNARD 7.8 ng/mL REFERENCE VALUES: (test code = FOLR) NORMAL: 2 .76 - >20 ng/ML DEFICIENT: 1.04 - 2.79 ng/ML THYROID STIMULATING [id number] 14:08:00 Test Item Value Reference Range Interpretation Comments THYROID STIMULATING 1.830 MIU/L 0.465-4.68 N Please b e aware that HORMONE (test code = bias re sults for TSH TSH) may occur forpa tient who are taking Biotin suppleme nts. [id number] 14:08:00 Test Item Value Reference Range Interpretation Comments FERRITIN (test code = ELIN) 519.0 NG/ML 6.24-137 H VITAMIN [id number] 13:38:00 Test Item Value Reference Range Interpretation Comments VITAMIN B12 (test code = VITB12) pg/mL 239-931 FOLIC ACID BY [id number] 13:38:00 Test Item Value Reference Range Interpretation Comments FOLIC ACID BY BERNARD (test code = FOLR) ng/mL THYROID STIMULATING [id number] 13:38:00 Test Item Value Reference Range Interpretation Comments THYROID STIMULATING 1.830 MIU/L 0.465-4.68 N Please b e aware that HORMONE (test code = bias re sults for TSH TSH) may occur forpa tient who are taking Biotin suppleme nts. [id number] 13:38:00 Test Item Value Reference Range Interpretation Comments FERRITIN (test code = ELIN) 519.0 NG/ML 6.24-137 H VITAMIN [id number] 13:34:00 Test Item Value Reference Range Interpretation Comments VITAMIN B12 (test code = VITB12) pg/mL 239-931 FOLIC ACID BY [id number] 13:34:00 Test Item Value Reference Range Interpretation Comments FOLIC ACID BY BERNARD (test code = FOLR) ng/mL THYROID STIMULATING [id number] 13:34:00 Test Item Value Reference Range Interpretation Comments THYROID STIMULATING 1.830 MIU/L 0.465-4.68 N Please b e aware that HORMONE (test code = bias re sults for TSH TSH) may occur forpa tient who are taking Biotin suppleme nts. [id number] 13:34:00 Test Item Value Reference Range Interpretation Comments FERRITIN (test code = ELIN) NG/ML 6.24-137 GLUCOSE BEDSIDE [id number] 13:19:00 Test Item Value Reference Range Interpretation [...] code = FESAT) % 12-57 COMPREHENSIVE METABOLIC [id number] 01:12:00 Test Item Value Reference Range Interpretation [...] +0.73 +0.65 2.5 mg/dl 8.0 g/dl +0.44 +0. 41 3.5 mg/dl 8.0 g/dl +0.55 +0.52 5 [...] 38-126 N PHOSPHATASE (test code = ALKP) [id number] 01:12:00 Test Item Value Reference Range Interpretation Comments TROPONIN-I (test code = TROPI) < 0.012 NG/ML 0.012-0.033 L PROTHROMBIN [id number] 01:04:00 Test Item Value Reference Range Interpretation [...] myocar dial infarction. 2.0 - 3.0 3. 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 3.0 - 4.5 PTT [id number] 01:04:00 Test Item Value Reference Range Interpretation Comments PTT ACTIVATED (test code = APTT) 50.2 SECONDS 25.1-36.5 H COMPREHENSIVE METABOLIC [id number] 01:01:00 Test Item Value Reference Range Interpretation [...] 38-126 N PHOSPHATASE (test code = ALKP) [id number] 01:01:00 Test Item Value Reference Range Interpretation Comments TROPONIN-I (test code = TROPI) NG/ML 0.0-0.045 URINALYSIS [id number] 00:53:00 Test Item Value Reference Range Interpretation [...] UACULT) Criteria SOURCE OF URINE: CLEAN CATCHUA [id number] 00:53:00 Test Item Value Reference Range Interpretation [...] A SOURCE OF URINE: CLEAN CATCHCBC W/AUTO [id number] 00:48:00 Test Item Value Reference Range Interpretation [...] = 0.00 K/mm3 0.0-0.1 N NRBC#) URINALYSIS [id number] 00:46:00 Test Item Value Reference Range Interpretation [...] = UACULT) SOURCE OF URINE: CLEAN CATCHUA [id number] 00:46:00 Test Item Value Reference Range Interpretation Comments UA RBC (test code = RBCU) RBC/HPF 0-3 UA WBC (test code = XWBCU) WBC/HPF 0-5 UA EPITHELIAL CELLS (test code = EPI/HPF FEW EPIU) UA BACTERIA (test code = XBACU) NONE SOURCE OF URINE: CLEAN CATCHURINALYSIS [id number] 00:46:00 Test Item Value Reference Range Interpretation [...] = UACULT) SOURCE OF URINE: CLEAN CATCHUA [id number] 00:46:00 Test Item Value Reference Range Interpretation Comments UA RBC (test code = RBCU) RBC/HPF 0-3 UA WBC (test code = XWBCU) WBC/HPF 0-5 UA EPITHELIAL CELLS (test code = EPI/HPF FEW EPIU) UA BACTERIA (test code = XBACU) NONE SOURCE OF URINE: CLEAN CATCHCOVID 19 INHOUSE [id number] 20:58:00 Test Item Value Reference Range Interpretation Comments COVID 19 INHOUSE AG NEGATIVE Negative Per manu facturer, (test code = negative result s should [id number]) be treated aspr esumptive and, if inconsi [...] and symptoms co nsistent with COVID-19. PROTHROMBIN [id number] 17:27:00 Test Item Value Reference Range Interpretation Comments PT PATIENT (test code = PTP) 16.8 SECONDS 9.3-12.9 H INTERNATIONAL NORMAL RATIO 1.49 INR Unit 0.8-1.2 H (test code = INR) THROMBOPLASTIN TIME [id number] 17:27:00 Test Item Value Reference Range Interpretation Comments THROMBOPLASTIN TIME PARTIAL 44.1 SECONDS 26-35 H (test code = PTT) CBC W/AUTO [id number] 17:00:00 Test Item Value Reference Range Interpretation [...] NT WITH AUTO DIFFERENTI AL. BASIC METABOLIC [id number] 16:52:00 Test Item Value Reference Range Interpretation [...] CK) Completed by Nursing: NONT PRO-BRAIN NATRIURETIC [id number] 16:52:00 Test Item Value Reference Range Interpretation Comments NT PRO-BRAIN NATRIURETIC PEPTI 1361 PG/ML 0-100 H (test code = PROBNP) Completed by Nursing: [id number] 16:52:00 Test Item Value Reference Range Interpretation [...] yby method. Completed by Nursing: NOCBC W/AUTO [id number] 16:28:00 Test Item Value Reference Range Interpretation [...] DIFF/SCN CRITERIA MDIFF) - CT C-SPINE W/O [id number] 15:41:00 [facility] : 1950 Sex: M Name: MI MCKENNA [facility] : 1950 Age/S: 70 / M [address] Unit #: [id number] Loc: [place] [address] Phys: Briseida Montana MD Acct: [id number] Dis Date: Status: REG ER PHONE #: [phone] Exam Date: 04/27/2021 1520 FAX #: Reason: s/p fall EXAMS: CPT: [id number] CT C-SPINE W/O CONT 60061 CLINICAL HISTORY: Syncope, weakness. Fall CT brain, unenhanced. Reformatted sagittal and coronal images. COMPARISON: None. Automated exposure control, iterative reconstruction technique, and/or adjustment of mA and/or kV according to patient's size was utilized for optimumradiation dose reduction. An unenhanced study of the [...] to be clear. . IMPRESSION: No acute appearingintracranial abnormality. Senescent changes. REASON FOR EXAM: Neck [...] Report (CONTINUED) Name: MI MCKENNA [facility] : 1950 Age/S: 70 / M [address] Unit #: [id number] Loc: [place] [address] Phys: Briseida Montana MD Acct: [id number] Dis Date: Status: REG ER PHONE #: [phone] Exam Date: 04/27/2021 152 FAX #: Reason: s/p fall EXAMS: CPT: [id number] CT C-SPINE W/O [id number] <Continued> Scattered mild degenerative changes are seen with some facet hypertrophy anduncinate process hypertrophy. Borderline spinal stenosis seen beginning at the C3 level. The spinal stenosis progressive at the C5-6 level where bony hypertrophy seen posteriorly and uncinate process hy pertrophy occurs. Spinal canal diameter on the order of 7 mm. Similar spinal stenosis changes C6-7 with degenerative osteophytes along posterior vertebral body margin as well as mild foraminal stenosisproduced.. The soft tissue window settings do not reveal apical pneumothorax or paraspinal hematoma.Reformatted images show good alignment and no fractures can be identified, either. No scoliosis evident. The C1-2 articulation is intact. IMPRESSION: No fracture seen in the cervical spine. Good alignment. Spinal stenosis, moderate, at the C5-6 and C6-7 levels due to posterior osteophytes and spondylosis changes. Prominent foraminal stenosis present as well. Borderline spinal stenosis at the upper cer vical levels.. Location: [id number] Reported and signed by: Ryne Ayers M.D. CC: Briseida Montana MD Technologist:Amada Coley RT(R)(CT) CTDI: DLP: Trnscb Date/Time: 04/27/2021 (2971) [email or web address] Orig Print D/T: S: 04/27/2021 (4680) PAGE 2 Signed Report- CT HEAD/BRAIN W/O [id number] 15:41:00 [facility] : 1950 Sex: M Name: MI MCKENNA [facility] : 1950 Age/S: 70 / M [address] Unit #: [id number] Loc: [place] [address] Phys: Briseida Montana MD Acct: [id number] Dis Date: Status:REG ER PHONE #: [phone] Exam Date: 04/27/2021 1520 FAX #: Reason: syncope EXAMS: CPT: [id number] CT HEAD/BRAIN W/O CONT 43537 CLINICAL HISTORY: Syncope, weakness. Fall CT brain, [...] 1 Signed Report (CONTINUED) Name: MI MCKENNA [facility] : 1950 Age/S: 70 / M [address] Unit #: [id number] Loc: [place] [address] Phys: Briseida Montana MD Acct: [id number] Dis Date: Status: REG ER PHONE #: [phone] Exam Date: 04/27/2021 1529 FAX #: Reason: syncope EXAMS: CPT: [id number] CT HEAD/BRAIN W/O CONT 28933 <Continued> Scattered mild degenerative changes are seen with some facet hypertrophyand uncinate process hypertrophy. Borderline spinal stenosis seen [...] no fractures can be identified, either. No scoliosisevident. The C1-2 articulation is intact. IMPRESSION: No [...] Coley, RT(R)(CT) CTDI: DLP: Trnscb Date/Time: 04/27/2021 (154) [email or web address] Orig Print D/T: S: 04/27/2021 (0988) PAGE 2 Signed Report- XR CHEST 1 [id number] 15:40:00 [facility] : 1950 Sex: M Name: MI MCKENNA [facility] : 1950 Age/S: 70 / M [address] Unit #: [id number] Loc: [place] [address] Phys: Briseida Montana MD Acct: [id number] Dis Date: Status: REG ER PHONE #: [phone] Exam Date: 04/27/2021 1525 FAX #: Reason: syncope EXAMS: CPT: [id number] XR CHEST 1 V 93615 Fluoro Time: DAP (Gy m2): Air Kerma [...] Signed Report Name: MI MCKENNA [facility] : 1950 Age/S: 70 / M [address] [address] #: [id number] Loc: [place] [address] Phys: Briseida Montana MD Acct: [id number] Dis Date:Status: REG ER PHONE #: [phone] Exam Date: 04/27/2021 1525 FAX #: Reason: syncope EXAMS: CPT:[id number] XR CHEST 1 V 47751 Fluoro Time: DAP (Gy m2): Air Kerma (mGy): <Continued> Technologist: Amada Coley, RT(R)(CT) Trnscb Date/Time: 04/27/2021 (3301) [email or web address].[email or web address].EB14 Orig Print D/T: S: 04/27/2021 (5461) PAGE 2 Signed ReportCBC W/AUTO [id number] 14:49:00 Test Item Value Reference Range Interpretation [...] NT WITH AUTO DIFFERENTI AL. CBC W/AUTO [id number] 14:49:00 Test Item Value Reference Range Interpretation [...] CONSISTA NT WITH AUTO DIFFERENTI AL. RBC [id number] 14:49:00 Test Item Value Reference Range Interpretation Comments PLATELET ESTIMATE MARKEDLY DECREASED ADEQUATE PLT ESTIMATE (test code = THOUSAND 80-100,000 PLTEST) PLATELET MORPHOLOGY NORMAL (test code = PLTMORPH) CBC W/AUTO [id number] 14:49:00 Test Item Value Reference Range Interpretation [...] NT WITH AUTO DIFFERENTI AL. GLUCOSE BEDSIDE [id number] 08:45:00 Test Item Value Reference Range Interpretation Comments GLUCOSE BEDSIDE TESTING (test code 105 mg/dL 70-110 N = GLUBED) BASIC METABOLIC [id number] 07:34:00 Test Item Value Reference Range Interpretation [...] = CA) 8.1 MG/DL 8.5-10.1 L PROTHROMBIN [id number] 07:15:00 Test Item Value Reference Range Interpretation Comments PT PATIENT (test code = PTP) 15.3 SECONDS 9.3-12.9 H INTERNATIONAL NORMAL RATIO 1.36 INR Unit 0.8-1.2 H (test code = INR) CBC W/AUTO [id number] 07:11:00 Test Item Value Reference Range Interpretation [...] code = DIFF/SCN CRITERIA MDIFF) GLUCOSE BEDSIDE [id number] 20:23:00 Test Item Value Reference Range Interpretation Comments GLUCOSE BEDSIDE TESTING (test code 182 mg/dL 70-110 H = GLUBED) GLUCOSE BEDSIDE [id number] 18:19:00 Test Item Value Reference Range Interpretation Comments GLUCOSE BEDSIDE TESTING (test code 176 mg/dL 70-110 H = GLUBED) GLUCOSE BEDSIDE [id number] 12:13:00 Test Item Value Reference Range Interpretation Comments GLUCOSE BEDSIDE TESTING (test code 105 mg/dL 70-110 N = GLUBED) CBC W/AUTO [id number] 11:08:00 Test Item Value Reference Range Interpretation [...] code YES DIFF/SCN CRITERIA = MDIFF) WBC [id number] 11:08:00 Test Item Value Reference Range Interpretation [...] NORMAL (test code = PLTMORPH) CBC W/AUTO [id number] 11:07:00 Test Item Value Reference Range Interpretation [...] code YES DIFF/SCN CRITERIA = MDIFF) WBC [id number] 11:07:00 Test Item Value Reference Range Interpretation Comments SEGMENTED NEUTROPHILS (test code = SEG) % 40-75 LYMPHOCYTE (test code = LYMPH) % 12.6-43.5 CBC W/AUTO [id number] 11:07:00 Test Item Value Reference Range Interpretation [...] code YES DIFF/SCN CRITERIA = MDIFF) WBC [id number] 11:07:00 Test Item Value Reference Range Interpretation Comments SEGMENTED NEUTROPHILS (test code = SEG) % 40-75 LYMPHOCYTE (test code = LYMPH) % 12.6-43.5 CBC W/AUTO [id number] 11:07:00 Test Item Value Reference Range Interpretation [...] code YES DIFF/SCN CRITERIA = MDIFF) WBC [id number] 11:07:00 Test Item Value Reference Range Interpretation Comments SEGMENTED NEUTROPHILS (test code = SEG) % 40-75 LYMPHOCYTE (test code = LYMPH) % 12.6-43.5 BASIC METABOLIC [id number] 09:08:00 Test Item Value Reference Range Interpretation [...] CA) 8.3 MG/DL 8.5-10.1 L CBC W/AUTO [id number] 08:47:00 Test Item Value Reference Range Interpretation [...] code = DIFF/SCN CRITERIA MDIFF) GLUCOSE BEDSIDE [id number] 08:30:00 Test Item Value Reference Range Interpretation Comments GLUCOSE BEDSIDE TESTING (test code = 90 mg/dL 70-110 N GLUBED) PROTHROMBIN [id number] 06:56:00 Test Item Value Reference Range Interpretation Comments PT PATIENT (test code = PTP) 19.6 SECONDS 9.3-12.9 H INTERNATIONAL NORMAL RATIO 1.73 INR Unit 0.8-1.2 H (test code = INR) GLUCOSE BEDSIDE [id number] 20:01:00 Test Item Value Reference Range Interpretation Comments GLUCOSE BEDSIDE TESTING (test code 151 mg/dL 70-110 H = GLUBED) PROTHROMBIN [id number] 17:35:00 Test Item Value Reference Range Interpretation Comments PT PATIENT (test code = PTP) 25.8 SECONDS 9.3-12.9 H INTERNATIONAL NORMAL RATIO 2.27 INR Unit 0.8-1.2 H (test code = INR) GLUCOSE BEDSIDE [id number] 17:16:00 Test Item Value Reference Range Interpretation Comments GLUCOSE BEDSIDE TESTING (test code 139 mg/dL 70-110 H = GLUBED) GLUCOSE BEDSIDE [id number] 13:07:00 Test Item Value Reference Range Interpretation Comments GLUCOSE BEDSIDE TESTING (test code 141 mg/dL 70-110 H = GLUBED) GLUCOSE BEDSIDE [id number] 08:22:00 Test Item Value Reference Range Interpretation Comments GLUCOSE BEDSIDE TESTING (test code = 70 mg/dL 70-110 N GLUBED) CBC W/AUTO [id number] 07:08:00 Test Item Value Reference Range Interpretation [...] NT WITH AUTO DIFFERENTI AL. CBC W/AUTO [id number] 07:08:00 Test Item Value Reference Range Interpretation [...] CONSISTA NT WITH AUTO DIFFERENTI AL. RBC [id number] 07:08:00 Test Item Value Reference Range Interpretation Comments PLATELET ESTIMATE (test DECREASED THOUSAND ADEQUATE code = PLTEST) PLATELET MORPHOLOGY (test NORMAL code = PLTMORPH) CBC W/AUTO [id number] 07:08:00 Test Item Value Reference Range Interpretation [...] NT WITH AUTO DIFFERENTI AL. BASIC METABOLIC [id number] 06:21:00 Test Item Value Reference Range Interpretation [...] CA) 8.0 MG/DL 8.5-10.1 L BASIC METABOLIC [id number] 06:16:00 Test Item Value Reference Range Interpretation [...] CA) 8.0 MG/DL 8.5-10.1 L CBC W/AUTO [id number] 05:59:00 Test Item Value Reference Range Interpretation [...] code = DIFF/SCN CRITERIA MDIFF) GLUCOSE BEDSIDE [id number] 20:38:00 Test Item Value Reference Range Interpretation Comments GLUCOSE BEDSIDE TESTING (test code 167 mg/dL 70-110 H = GLUBED) GLUCOSE BEDSIDE [id number] 16:43:00 Test Item Value Reference Range Interpretation Comments GLUCOSE BEDSIDE TESTING (test code 184 mg/dL 70-110 H = GLUBED) UA RFLX MICR CULT IF [id number] 11:34:00 Test Item Value Reference Range Interpretation [...] Criteria Indication for culture: RiskForSepsis-no oth srcLACTIC [id number] 11:34:00 Test Item Value Reference Range Interpretation Comments LACTIC ACID (test code = LACT) 1.5 mmol/L 0.4-2.0 N UA RFLX MICR CULT IF [id number] 11:18:00 Test Item Value Reference Range Interpretation [...] CHK = UACULT) Indication for culture: [facility]epsis[facility] [id number] 10:58:00 Test Item Value Reference Range Interpretation [...] CONSISTA NT WITH AUTO DIFFERENTI AL. LACTIC [id number] 10:06:00 Test Item Value Reference Range Interpretation Comments LACTIC ACID (test code = LACT) 2.5 mmol/L 0.4-2.0 H Coronavirus 2019 nCoV [id number] 10:05:00 Test Item Value Reference Range Interpretation Comments Coronavirus 2019 nCoV Negative Negative Per ma nufacturer, Bedside (test code = negativ e results should [id number]) be treated aspresumptive a nd, if inconsistent [...] tent with COVID-19. - XR CHEST 1 [id number] 10:04:00 [facility] : 1950 Sex: M Name: MI MCKENNA [facility] : 1950 Age/S: 70 / M [address] Unit #: [id number] Loc: [place] [address] Phys: Royce Green MD Acct: [id number] Dis Date: Status: REG ER PHONE #: [phone] Exam Date: 04/22/2021 0940 FAX #: Reason: Code Sepsis EXAMS: CPT: [id number] XR CHEST 1 V 62677 Fluoro Time: DAP (Gy m2): Air Kerma [...] Signed Report Name: MI MCKENNA [facility] : 1950 Age/S: 70 / M [address] Unit #: [id number] Loc: [place] [address] Phys: Royce Green MD Acct: [id number] Dis Date: Status: REG ER PHONE #: [phone] Exam Date: 04/22/2021 0940 FAX #: Reason: Code Sepsis EXAMS: CPT: [id number] XR CHEST 1 V 86367 Fluoro Time: DAP (Gy m2): Air Kerma (mGy): <Continued> Technologist: Osbaldo Barbour RT(R)(CT) Trnscb Date/Time: 04/22/2021 (1004) [email or web address] Orig Print D/T: S: 04/22/2021 (1007) PAGE 2 Signed ReportBASIC METABOLIC [id number] 09:55:00 Test Item Value Reference Range Interpretation [...] 8.5-10.1 N Completed by Nursing: NOHEPATIC FUNCTION [id number] 09:55:00 Test Item Value Reference Range Interpretation [...] N code = ALKP) Completed by Nursing: [id number] 09:55:00 Test Item Value Reference Range Interpretation Comments LIPASE (test code = LIP) 242 Unit/L 114-286 N Completed by Nursing: NONT PRO-BRAIN NATRIURETIC [id number] 09:55:00 Test Item Value Reference Range Interpretation Comments NT PRO-BRAIN NATRIURETIC PEPTI 1104 PG/ML 0-100 H (test code = PROBNP) Completed by Nursing: [id number] 09:55:00 Test Item Value Reference Range Interpretation [...] briseida yby method. Completed by Nursing: NOPROTHROMBIN [id number] 09:36:00 Test Item Value Reference Range Interpretation Comments PT PATIENT (test code = PTP) 19.7 SECONDS 9.3-12.9 H INTERNATIONAL NORMAL RATIO 1.74 INR Unit 0.8-1.2 H (test code = INR) THROMBOPLASTIN TIME [id number] 09:36:00 Test Item Value Reference Range Interpretation Comments THROMBOPLASTIN TIME PARTIAL 57.4 SECONDS 26-35 H (test code = PTT) CBC W/AUTO [id number] 09:29:00 Test Item Value Reference Range Interpretation [...] code = DIFF/SCN CRITERIA MDIFF) GLUCOSE BEDSIDE [id number] 11:38:00 Test Item Value Reference Range Interpretation Comments GLUCOSE BEDSIDE TESTING (test code 130 mg/dL 70-110 H = GLUBED) CBC W/AUTO [id number] 10:26:00 Test Item Value Reference Range Interpretation [...] CONSISTA NT WITH AUTO DIFFERENTI AL. RBC [id number] 10:26:00 Test Item Value Reference Range Interpretation Comments PLATELET ESTIMATE DECREASED THOUSAND ADEQUATE PLAT ELET COUNT (test code = REVIEWED AND PLTEST) VERIFIED. PLATELET MORPHOLOGY NORMAL (test code = PLTMORPH) CBC W/AUTO [id number] 10:22:00 Test Item Value Reference Range Interpretation [...] NT WITH AUTO DIFFERENTI AL. CBC W/AUTO [id number] 10:21:00 Test Item Value Reference Range Interpretation [...] NT WITH AUTO DIFFERENTI AL. GLUCOSE BEDSIDE [id number] 09:46:00 Test Item Value Reference Range Interpretation Comments GLUCOSE BEDSIDE TESTING (test code 168 mg/dL 70-110 H = GLUBED) PROTHROMBIN [id number] 08:50:00 Test Item Value Reference Range Interpretation Comments PT PATIENT (test code = PTP) 24.3 SECONDS 9.3-12.9 H INTERNATIONAL NORMAL RATIO 2.14 INR Unit 0.8-1.2 H (test code = INR) BASIC METABOLIC [id number] 08:48:00 Test Item Value Reference Range Interpretation [...] CA) 9.1 MG/DL 8.5-10.1 N CBC W/AUTO [id number] 08:37:00 Test Item Value Reference Range Interpretation [...] code = DIFF/SCN CRITERIA MDIFF) GLUCOSE BEDSIDE [id number] 20:36:00 Test Item Value Reference Range Interpretation Comments GLUCOSE BEDSIDE TESTING (test code 132 mg/dL 70-110 H = GLUBED) GLUCOSE BEDSIDE [id number] 17:01:00 Test Item Value Reference Range Interpretation Comments GLUCOSE BEDSIDE TESTING (test code 120 mg/dL 70-110 H = GLUBED) GLUCOSE BEDSIDE [id number] 16:37:00 Test Item Value Reference Range Interpretation Comments GLUCOSE BEDSIDE TESTING (test code 123 mg/dL 70-110 H = GLUBED) GLUCOSE BEDSIDE [id number] 07:57:00 Test Item Value Reference Range Interpretation Comments GLUCOSE BEDSIDE TESTING (test code = 92 mg/dL 70-110 N GLUBED) CBC W/AUTO [id number] 06:49:00 Test Item Value Reference Range Interpretation [...] CONSISTA NT WITH AUTO DIFFERENTI AL. RBC [id number] 06:49:00 Test Item Value Reference Range Interpretation Comments PLATELET ESTIMATE DECREASED THOUSAND ADEQUATE ROSHNI MATED (test code = PLATELET RANGE = PLTEST) 84,000 - 90,000 PLATELET MORPHOLOGY NORMAL (test code = PLTMORPH) CBC W/AUTO [id number] 06:48:00 Test Item Value Reference Range Interpretation [...] NT WITH AUTO DIFFERENTI AL. CBC W/AUTO [id number] 06:48:00 Test Item Value Reference Range Interpretation [...] NT WITH AUTO DIFFERENTI AL. BASIC METABOLIC [id number] 06:04:00 Test Item Value Reference Range Interpretation [...] = CA) 9.1 MG/DL 8.5-10.1 N PROTHROMBIN [id number] 05:45:00 Test Item Value Reference Range Interpretation Comments PT PATIENT (test code = PTP) 11.9 SECONDS 9.3-12.9 N INTERNATIONAL NORMAL RATIO 1.06 INR Unit 0.8-1.2 N (test code = INR) CBC W/AUTO [id number] 05:40:00 Test Item Value Reference Range Interpretation [...] code = DIFF/SCN CRITERIA MDIFF) GLUCOSE BEDSIDE [id number] 20:17:00 Test Item Value Reference Range Interpretation Comments GLUCOSE BEDSIDE TESTING (test code 156 mg/dL 70-110 H = GLUBED) GLUCOSE BEDSIDE [id number] 17:17:00 Test Item Value Reference Range Interpretation Comments GLUCOSE BEDSIDE TESTING (test code 132 mg/dL 70-110 H = GLUBED) GLUCOSE BEDSIDE [id number] 11:56:00 Test Item Value Reference Range Interpretation Comments GLUCOSE BEDSIDE TESTING (test code 123 mg/dL 70-110 H = GLUBED) GLUCOSE BEDSIDE [id number] 08:11:00 Test Item Value Reference Range Interpretation Comments GLUCOSE BEDSIDE TESTING (test code 103 mg/dL 70-110 N = GLUBED) BASIC METABOLIC [id number] 07:31:00 Test Item Value Reference Range Interpretation [...] CA) 8.8 MG/DL 8.5-10.1 N CBC W/AUTO [id number] 06:16:00 Test Item Value Reference Range Interpretation [...] code NO DIFF/SCN CRITERIA = MDIFF) PROTHROMBIN [id number] 06:15:00 Test Item Value Reference Range Interpretation Comments PT PATIENT (test code = PTP) 13.6 SECONDS 9.3-12.9 H INTERNATIONAL NORMAL RATIO 1.21 INR Unit 0.8-1.2 H (test code = INR) GLUCOSE BEDSIDE [id number] 20:11:00 Test Item Value Reference Range Interpretation Comments GLUCOSE BEDSIDE TESTING (test code 156 mg/dL 70-110 H = GLUBED) GLUCOSE BEDSIDE [id number] 17:31:00 Test Item Value Reference Range Interpretation Comments GLUCOSE BEDSIDE TESTING (test code 130 mg/dL 70-110 H = GLUBED) GLUCOSE BEDSIDE [id number] 12:10:00 Test Item Value Reference Range Interpretation Comments GLUCOSE BEDSIDE TESTING (test code 177 mg/dL 70-110 H = GLUBED) GLUCOSE BEDSIDE [id number] 08:19:00 Test Item Value Reference Range Interpretation Comments GLUCOSE BEDSIDE TESTING (test code 112 mg/dL 70-110 H = GLUBED) BASIC METABOLIC [id number] 08:12:00 Test Item Value Reference Range Interpretation [...] CA) 8.6 MG/DL 8.5-10.1 N AG PROSTATE [id number] 08:12:00 Test Item Value Reference Range Interpretation Comments AG PROSTATE 0.9 ng/mL 0.0-4.0 Bailee ECLIA SPECIFIC (test methodology.A ccording to the code = PSA) [employer], Se rum PSAshould decrease [...] abs enceof malignant disea se.Performed At: [facility] [address] [place], [place] [id number] Kyle L MD Ph:[phone] RENAL FUNCTION [id number] 06:26:00 Test Item Value Reference Range Interpretation [...] PHOS) 3.4 MG/DL 2.5-4.9 N CBC W/AUTO [id number] 06:21:00 Test Item Value Reference Range Interpretation [...] code NO DIFF/SCN CRITERIA = MDIFF) PROTHROMBIN [id number] 06:21:00 Test Item Value Reference Range Interpretation Comments PT PATIENT (test code = PTP) 12.8 SECONDS 9.3-12.9 N INTERNATIONAL NORMAL RATIO 1.14 INR Unit 0.8-1.2 N (test code = INR) GLUCOSE BEDSIDE [id number] 19:54:00 Test Item Value Reference Range Interpretation Comments GLUCOSE BEDSIDE TESTING (test code 139 mg/dL 70-110 H = GLUBED) GLUCOSE BEDSIDE [id number] 15:57:00 Test Item Value Reference Range Interpretation Comments GLUCOSE BEDSIDE TESTING (test code 134 mg/dL 70-110 H = GLUBED) PROTHROMBIN [id number] 15:44:00 Test Item Value Reference Range Interpretation Comments PT PATIENT (test code = PTP) 13.1 SECONDS 9.3-12.9 H INTERNATIONAL NORMAL RATIO 1.17 INR Unit 0.8-1.2 N (test code = INR) GLUCOSE BEDSIDE [id number] 11:43:00 Test Item Value Reference Range Interpretation Comments GLUCOSE BEDSIDE TESTING (test code 150 mg/dL 70-110 H = GLUBED) GLUCOSE BEDSIDE [id number] 07:56:00 Test Item Value Reference Range Interpretation Comments GLUCOSE BEDSIDE TESTING (test code 121 mg/dL 70-110 H = GLUBED) [id number] 07:18:00 Test Item Value Reference Range Interpretation Comments HAPTOGLOBIN (test code 169 mg/dL 34-355 Perfo rmed At: BN = HAPT) [facility] [address] [id number] ra Jj ADAMS Ph:[phone] CBC W/AUTO [id number] 04:45:00 Test Item Value Reference Range Interpretation [...] NT WITH AUTO DIFFERENTI AL. BASIC METABOLIC [id number] 04:19:00 Test Item Value Reference Range Interpretation [...] CA) 8.7 MG/DL 8.5-10.1 N RENAL FUNCTION [id number] 04:19:00 Test Item Value Reference Range Interpretation Comments ALBUMIN (test code = ALB) 2.1 G/DL 3.4-5.0 L PHOSPHOROUS (test code = PHOS) 3.2 MG/DL 2.5-4.9 N BASIC METABOLIC [id number] 04:14:00 Test Item Value Reference Range Interpretation [...] CA) 8.7 MG/DL 8.5-10.1 N RENAL FUNCTION [id number] 04:14:00 Test Item Value Reference Range Interpretation Comments ALBUMIN (test code = ALB) 2.1 G/DL 3.4-5.0 L PHOSPHOROUS (test code = PHOS) MG/DL 2.5-4.9 THROMBOPLASTIN TIME [id number] 04:10:00 Test Item Value Reference Range Interpretation Comments THROMBOPLASTIN TIME PARTIAL 67.1 SECONDS 26-35 H (test code = PTT) CBC W/AUTO [id number] 04:04:00 Test Item Value Reference Range Interpretation [...] code = DIFF/SCN CRITERIA MDIFF) THROMBOPLASTIN TIME [id number] 21:52:00 Test Item Value Reference Range Interpretation Comments THROMBOPLASTIN TIME PARTIAL 58.9 SECONDS 26-35 H (test code = PTT) GLUCOSE BEDSIDE [id number] 20:06:00 Test Item Value Reference Range Interpretation Comments GLUCOSE BEDSIDE TESTING (test code 155 mg/dL 70-110 H = GLUBED) RENAL FUNCTION [id number] 18:22:00 Test Item Value Reference Range Interpretation [...] PHOS) 2.8 MG/DL 2.5-4.9 N GLUCOSE BEDSIDE [id number] 16:38:00 Test Item Value Reference Range Interpretation Comments GLUCOSE BEDSIDE TESTING (test code 140 mg/dL 70-110 H = GLUBED) THROMBOPLASTIN TIME [id number] 16:25:00 Test Item Value Reference Range Interpretation Comments THROMBOPLASTIN TIME PARTIAL 49.2 SECONDS 26-35 H (test code = PTT) PROTEIN ELECTROPHORESIS [id number] 15:12:00 Test Item Value Reference Range Interpretation Comments TOTAL PROTEIN 5.2 g/dL 6.0-8.5 A (test code = PROTE) ALBUMIN (test 2.5 g/dL 2.9-4.4 A code = ALBE) [id number]-[id number] 0.2 g/dL 0.0-0.4 (test code = A1G) [id number]-7-[id number] 0.9 g/dL 0.4-1.0 (test code = A2G) [...] = will follow via ELEINT) computer,mail, or associate art director delivery.Perfor med At: HD [facility] [address] [place] [id number] deejay Soto MD Ph:[phone] rformed At: DA [facility] [address] [facility] [address] [place], [place] [id number] h CN MD Ph:[phone] [Automated mess age] The system [employer] generated this result transmitted ref erence range: (). The reference range was not used to int erpret this result as normal/abnormal . RHEUMATOID FACTOR [id number] 13:11:00 Test Item Value Reference Range Interpretation Comments RHEUMATOID FACTOR <10.0 IU/mL 0.0-13.9 Performed At: HD SCREEN (test code = [facility] [address] RA) [place], [place] [id number] Soto MD Ph:[phone] ANTINUCLEAR ANTIBODIES [id number] 13:11:00 Test Item Value Reference Range Interpretation Comments MARLYN TITER (test code Negative See_Comment Negat abril <1:80 = ANATITR) Borderline 1:80 Positive >1:80Performed At: HD [facility] [address] [id number] Soto MD Ph:[phone] [ Automated message] The sy stem which generated this result transmitted ref erence range: (). The reference range was not u sed to interpret this result as normal/abnormal . GLUCOSE BEDSIDE [id number] 11:18:00 Test Item Value Reference Range Interpretation Comments GLUCOSE BEDSIDE TESTING (test code 157 mg/dL 70-110 H = GLUBED) THROMBOPLASTIN TIME [id number] 08:59:00 Test Item Value Reference Range Interpretation Comments THROMBOPLASTIN TIME PARTIAL 71.0 SECONDS 26-35 H (test code = PTT) GLUCOSE BEDSIDE [id number] 08:05:00 Test Item Value Reference Range Interpretation Comments GLUCOSE BEDSIDE TESTING (test code 109 mg/dL 70-110 N = GLUBED) CBC W/AUTO [id number] 07:59:00 Test Item Value Reference Range Interpretation [...] NT WITH AUTO DIFFERENTI AL. CBC W/AUTO [id number] 06:49:00 Test Item Value Reference Range Interpretation [...] code = DIFF/SCN CRITERIA MDIFF) THROMBOPLASTIN TIME [id number] 00:57:00 Test Item Value Reference Range Interpretation Comments THROMBOPLASTIN TIME PARTIAL 100.9 SECONDS 26-35 HH (test code = PTT) HGB [id number] 22:14:00 Test Item Value Reference Range Interpretation Comments HEMOGLOBIN (test code = HGB) 8.1 G/DL 12.3-15.9 L HEMATOCRIT (test code = HCT) 25.0 % 35.8-46.7 L GLUCOSE BEDSIDE [id number] 20:16:00 Test Item Value Reference Range Interpretation Comments GLUCOSE BEDSIDE TESTING (test code 206 mg/dL 70-110 H = GLUBED) THROMBOPLASTIN TIME [id number] 18:23:00 Test Item Value Reference Range Interpretation Comments THROMBOPLASTIN TIME PARTIAL 46.3 SECONDS 26-35 H (test code = PTT) GLUCOSE BEDSIDE [id number] 16:15:00 Test Item Value Reference Range Interpretation Comments GLUCOSE BEDSIDE TESTING (test code 166 mg/dL 70-110 H = GLUBED) RHEUMATOID FACTOR [id number] 14:11:00 Test Item Value Reference Range Interpretation Comments RHEUMATOID FACTOR <10.0 IU/mL 0.0-13.9 Performed At: HD SCREEN (test code = [facility] [address]qhd5882 RA) [place], [place] [id number] Ray Soto MD Ph:[phone] ANTINUCLEAR ANTIBODIES [id number] 14:11:00 Test Item Value Reference Range Interpretation Comments MARLYN TITER (test code = ANATITR) GLUCOSE BEDSIDE [id number] 11:58:00 Test Item Value Reference Range Interpretation Comments GLUCOSE BEDSIDE TESTING (test code 194 mg/dL 70-110 H = GLUBED) CBC W/AUTO [id number] 11:38:00 Test Item Value Reference Range Interpretation [...] ALREADY DONE WITHIN THE LAST 24 HOURSPROTHROMBIN [id number] 09:14:00 Test Item Value Reference Range Interpretation Comments PT PATIENT (test code = PTP) 12.3 SECONDS 9.3-12.9 N INTERNATIONAL NORMAL RATIO 1.10 INR Unit 0.8-1.2 N (test code = INR) THROMBOPLASTIN TIME [id number] 09:14:00 Test Item Value Reference Range Interpretation Comments THROMBOPLASTIN TIME PARTIAL 36.7 SECONDS 26-35 H (test code = PTT) CBC W/AUTO [id number] 08:45:00 Test Item Value Reference Range Interpretation [...] At: HD SCREEN (test code = [facility] Suvlkkk5673 ) [place], [place] [id number] Ray Soto MD Ph:[phone] ANTINUCLEAR ANTIBODIES [id number] 08:13:00 Test Item Value Reference Range Interpretation Comments MARLYN TITER (test code = ANATITR) MARLYN COMMENT (test code = ANACOM) GLUCOSE BEDSIDE [id number] 08:10:00 Test Item Value Reference Range Interpretation Comments GLUCOSE BEDSIDE TESTING (test code 129 mg/dL 70-110 H = GLUBED) RENAL FUNCTION [id number] 06:39:00 Test Item Value Reference Range Interpretation [...] PHOS) 3.1 MG/DL 2.5-4.9 N ACUTE HEPATITIS [id number] 03:13:00 Test Item Value Reference Range Interpretation Comments AB HEPATITIS A Negative Negative IGM (test code = HAVMAB) AG HEPATITIS B NON REACTIVE NonReactive SURFACE (test INDEX code = HBSAG) AB HEPATITIS B Negative Negative CORE IGM (test code = HBCMAB) AB HEPATITIS C <0.1 0.0-0.9 INFCE Result Units: (test code = s/co ratio Neg ative: HCVAB) < 0.8 Indetermi feng: 0.8 - 0.9 Posit abril: > 0.9 The CDC recommends that a positive HCV an tibody result be follo wed up with a HCV Nucl eic Acid Amplificat ion test (446998).Perfor med At: [facility] [address] [place], [place] [id number] Ray Soto MD Ph:[phone] VANCOMYCIN [id number] 00:25:00 Test Item Value Reference Range Interpretation Comments VANCOMYCIN TROUGH (test code = 23.2 mcG/ML 10-20 H VANCT) GLUCOSE BEDSIDE [id number] 20:19:00 Test Item Value Reference Range Interpretation Comments GLUCOSE BEDSIDE TESTING (test code 170 mg/dL 70-110 H = GLUBED) GLUCOSE BEDSIDE [id number] 17:13:00 Test Item Value Reference Range Interpretation Comments GLUCOSE BEDSIDE TESTING (test code 164 mg/dL 70-110 H = GLUBED) CBC W/AUTO [id number] 15:47:00 Test Item Value Reference Range Interpretation [...] 2.0 % 0.3-2.3 N RETICA) CBC W/AUTO [id number] 14:30:00 Test Item Value Reference Range Interpretation [...] = % 0.3-2.3 N RETICA) COMPREHENSIVE METABOLIC [id number] 12:38:00 Test Item Value Reference Range Interpretation [...] 50-136 N code = ALKP) PROTEIN ELECTROPHORESIS [id number] 12:38:00 Test Item Value Reference Range Interpretation Comments TOTAL PROTEIN (test code = PROTE) ALBUMIN (test code = ALBE) [id number]-7-[id number] (test code = A1G) [id number] (test code = A2G) BETA GLOBULIN (test [...] 25 % calc 12-57 N FESAT) VITAMIN [id number] 12:38:00 Test Item Value Reference Range Interpretation Comments VITAMIN B12 (test code = VITB12) 967 PG/ML 183-986 N FOLIC [id number] 12:38:00 Test Item Value Reference Range Interpretation Comments FOLIC ACID (test code = FOL) 15.10 NG/ML 3.10-17.50 N THYROID STIMULATING [id number] 12:38:00 Test Item Value Reference Range Interpretation Comments THYROID STIMULATING HORMONE 1.790 mcIU/ML 0.340-4.820 N (test code = TSH) GLUCOSE BEDSIDE [id number] 12:08:00 Test Item Value Reference Range Interpretation Comments GLUCOSE BEDSIDE TESTING (test code 135 mg/dL 70-110 H = GLUBED) GLUCOSE BEDSIDE [id number] 08:22:00 Test Item Value Reference Range Interpretation [...] = 18 % calc 12-57 N FESAT) [id number] 07:17:00 Test Item Value Reference Range Interpretation Comments TRANSFERRRIN (test code 134 mg/dL 177-329 A Perf ormed At: BN = TRANSF) [facility] [id number] ra Jj ADAMS Ph:[phone] VITAMIN [id number] 07:17:00 Test Item Value Reference Range Interpretation Comments VITAMIN B12 (test code = VITB12) 948 PG/ML 183-986 N FOLIC [id number] 07:17:00 Test Item Value Reference Range Interpretation Comments FOLIC ACID (test code = FOL) 5.70 NG/ML 3.10-17.50 N [id number] 07:17:00 Test Item Value Reference Range Interpretation Comments FERRITIN (test code = ELIN) 198.4 NG/ML 5.0-323.0 N RENAL FUNCTION [id number] 06:38:00 Test Item Value Reference Range Interpretation [...] PHOS) 3.6 MG/DL 2.5-4.9 N ACUTE HEPATITIS [id number] 05:12:00 Test Item Value Reference Range Interpretation [...] HCV Nucl eic Acid Amplification t est ([id number]).Perfor med At: HD [facility] [address] [place] [id number] deejay Soto MD Ph:[phone] GLUCOSE BEDSIDE [id number] 20:15:00 Test Item Value Reference Range Interpretation Comments GLUCOSE BEDSIDE TESTING (test code 177 mg/dL 70-110 H = GLUBED) GLUCOSE BEDSIDE [id number] 16:58:00 Test Item Value Reference Range Interpretation Comments GLUCOSE BEDSIDE TESTING (test code 189 mg/dL 70-110 H = GLUBED) GLUCOSE BEDSIDE [id number] 12:17:00 Test Item Value Reference Range Interpretation Comments GLUCOSE BEDSIDE TESTING (test code 149 mg/dL 70-110 H = GLUBED) GLUCOSE BEDSIDE [id number] 08:20:00 Test Item Value Reference Range Interpretation Comments GLUCOSE BEDSIDE TESTING (test code 122 mg/dL 70-110 H = GLUBED) CBC W/AUTO [id number] 08:19:00 Test Item Value Reference Range Interpretation [...] NT WITH AUTO DIFFERENTI AL. BASIC METABOLIC [id number] 07:04:00 Test Item Value Reference Range Interpretation [...] CA) 8.6 MG/DL 8.5-10.1 N AG PROSTATE [id number] 07:04:00 Test Item Value Reference Range Interpretation Comments AG PROSTATE SPECIFIC (test code = PSA) CBC W/AUTO [id number] 06:52:00 Test Item Value Reference Range Interpretation [...] code = DIFF/SCN CRITERIA MDIFF) GLUCOSE BEDSIDE [id number] 20:43:00 Test Item Value Reference Range Interpretation Comments GLUCOSE BEDSIDE TESTING (test code 163 mg/dL 70-110 H = GLUBED) - DOP ART 1-2 LEVELS [id number] 20:25:00 [facility] 1950 Sex: M Name: MI MCKENNA [facility] : 1950 Age/S: 70 / M [id number] [place] Unit #:[id number] Loc: [place] [address] Phys: Alexus Gomez MD Acct: [id number] Dis Date: Status: ADM IN PHONE #: [phone] Exam Date: 03/21/20212009 FAX #: Reason: R/O PAD EXAMS: CPT: [id number] [place] [employer] ART 1-2 [facility] [address] HISTORY: Weakness TECHNIQUE: Grayscale B-mode, color-flow, and [...] smaller below the knee vessels. at 2024 Re ported and signed by: Ryne Balderrama M.D. CC: Alexus Gomez MD Technologist: Mejia Guillermo TrnscbDate/Time: 03/21/2021 (2024) EnderRXC2 PAGE 1 Signed Report Name: MI MCKENNA [facility] : 1950 Age/S: 70 / M [id number] Unit #: [id number] Loc: [place] [address] Phys:Alexus Gomez MD Acct: [id number] Dis Date: Status: ADM IN PHONE #: [phone] Exam Date: 03/21/20212009 FAX #: Reason: R/O PAD EXAMS: CPT: [id number] DOP ART 1-2 LEVELS HERI [address] <Continued> Orig Print D/T: S: 03/21/2021 (2027) Probe: PAGE 2 Signed Report- DUP LE ART [id number] 20:25:00 [facility] [place] [facility] : 1950 Sex: M Name: MI MCKENNA [facility] : 1950 Age/S: 70 / M [address] [place] Unit #:[id number] Loc: [place] [address] Phys: Alexus Gomez MD Acct: [id number] Dis Date: Status: ADM IN PHONE #: [phone] Exam Date: 03/21/20211749 FAX #: Reason: R/O PAD EXAMS: CPT: [id number] [place] HERI [address] HISTORY: Weakness TECHNIQUE: Grayscale B-mode, color-flow, and spectral Doppler analysis of the bilateral lower extremity arterial vasculature was performed. COMPARISON: None availabletime of interpretation. FINDINGS: Right lower extremity: Triphasic [...] CC: Alexus Gomez MD Technologist: Mejia Guillermo Trnnmb Date/Time: 03/21/2021 (2024) EnderRXC2 PAGE 1 Signed Report Name: MI MCKENNA [facility] :1950 Age/S: 70 / M [address] Unit #: [id number] Loc: [place] [address] Phys: Alexus Gomez MD Acct: [id number] Dis Date: Status: ADM IN PHONE #: [phone] Exam Date: 03/21/2021 1750 FAX #: Reason: R/O PAD EXAMS: CPT: [id number] DUP [place] ART HERI [address] <Continued> Orig Print D/T: S: 03/21/2021 (2027) Probe: PAGE 2 Signed Report- DUP VEIN [id number] 18:34:00 [facility] : 1950 Sex: M Name: MI MCKENNA [facility] : 1950 Age/S: 70 / M [address] [place] Unit #: [id number] Loc: [place] [address] Phys: Elaine Fontaine DPM Acct: [id number] Dis Date: Status: ADMIN PHONE #: [phone] Exam Date: 03/21/2021 1528 FAX #: Reason: R/O DVT EXAMS: CPT: [id number] DUP [place]IN HERI [address] LOCATION CODE: H 31 LOWER EXTREMITY VENOUS DUPLEX ULTRASOUND, BILATERAL. HISTORY: Tram lulitis COMPARISON: None available TECHNIQUE: Real-time spectral analysis [...] MD; Elaine Fontaine DPM Technologist: Mejia Guillermo Trnnmb Date/Time: 03/21/2021 (1833) EnderEFM1 PAGE 1 Signed Report Name: MI MCKENNA [facility] : 1950 Age/S: 70 / M [address] Unit #: [id number] Loc: [place] [address] Phys: Elaine FontaineM Acct: [id number] Dis Date: Status: ADM IN PHONE #: [phone] Exam Date: 03/21/2021 1651 FAX #: Reason: R/O DVT EXAMS: CPT: [id number] [place] [address] <Continued> Orig Print D/T: S: 03/21/2021 (1837) Probe: PAGE 2 Signed ReportGLUCOSE BEDSIDE TESTING 2021-03-21 16:38:00 Test Item Value Reference Range Interpretation Comments GLUCOSE BEDSIDE TESTING (test code 161 mg/dL 70-110 H = GLUBED) - MRI LOW EXT W/O CONT [id number] 15:50:00 [facility] : 1950 Sex: M FAX: Alexus Perez MD Camps: St: ADM Name: MI MCKENNA [facility] : 1950 Age/S: 70/M [address] [facility] [place] Unit #: [id number] Loc: [address] [place] [address] Phys: Alexus Gomez MD Acct: [id number] Dis Date: Status: ADM IN PHONE #: [phone] Exam Date: 03/21/2021 1542 FAX #: Reason: CELLULITIS, EVALUATE FOR ABSCESS EXAMS: CPT: [id number] MRI LOW EXT W/[place] [address] EXAM: - MRI LOW EXT W/O CONTLT [...] fluid collection. Extensive subcutaneous inflammation/edema. at 1550 Reported and signed by: CAROLINA HACKETT M.D. CC: Alexus Gomez MD Technologist: Fany Pool RT(R)(CT); Estelle Barajas RT(R)(MR) Transcribed Date/Time/By: 03/21/2021 (2570) :Ivis.HV2 Orig Print D/T: S: 03/21/2021 (5908) PAGE 1 Signed Report- [facility] [id number] 14:13:00 [facility] : 1950 Sex: M Name: MI MCKENNA [facility] : 1950 Age/S: 70 / M [id number] [address] [place] Unit #: [id number] Loc: [place] [address] Phys: Supa Laird MD Acct: [id number] Dis Date: Status: ADM IN PHONE #: [phone] Exam Date: 03/21/2021 1343 FAX #: Reason: eval of ckd vs jitendra EXAMS: CPT: [id number] US RETRO LTD 14186 Bilateral renal ultrasound. History: eval of ckd [...] MD; Supa Laird MD Technologist: Mejia Guillermo [facility] [place] Date/Time: 03/21/2021 (1413) EnderPMT PAGE 1 Signed Report Name: MI MCKENNA [facility] : 1950 Age/S: 70 / M [address] [place] [address] Unit #: [id number] Loc: [place] [address] Phys: Supa Laird MD Acct: [id number] Dis Date: Status: ADM IN PHONE #: [phone] Exam Date: 03/21/2021 1340 FAX #: Reason: evalof ckd vs jitendra EXAMS: CPT: [id number] US RETRO LTD [address] <Continued> Orig Print D/T: S: 03/21/2021 (4587) Probe: PAGE 2 Signed ReportGLUCOSE BEDSIDE [id number] 11:22:00 Test Item Value Reference Range Interpretation [...] = 18 % calc 12-57 N FESAT) [id number] 07:34:00 Test Item Value Reference Range Interpretation Comments TRANSFERRRIN (test code = TRANSF) VITAMIN [id number] 07:34:00 Test Item Value Reference Range Interpretation Comments VITAMIN B12 (test code = VITB12) 948 PG/ML 183-986 N FOLIC [id number] 07:34:00 Test Item Value Reference Range Interpretation Comments FOLIC ACID (test code = FOL) 5.70 NG/ML 3.10-17.50 N [id number] 07:34:00 Test Item Value Reference Range Interpretation Comments FERRITIN (test code = ELIN) 198.4 NG/ML 5.0-323.0 N [id number] 07:25:00 Test Item Value Reference Range Interpretation Comments GLYCOSYLATED HEMOGLOBIN (HA1C) 6.8 % A1C 0.0-5.7 H (test code = GLYHGB) ESTIMATED AVERAGE GLUCOSE (test 148 MG/DLest code = EAG) HGB [id number] 07:00:00 Test Item Value Reference Range Interpretation Comments HEMOGLOBIN (test code = HGB) 6.7 G/DL 12.3-15.9 L HEMATOCRIT (test code = HCT) 20.3 % 35.8-46.7 L - US ABDOMEN [id number] 19:52:00 [facility] [place] [facility] : 1950 Sex: M Name: MI MCKENNA [facility] : 1950 Age/S: 70 / M [id number] Unit #: [id number] Loc: [place] [address] Phys: Alexus Gomez MD Acct: [id number] Dis Date: Status: ADM IN PHONE #: [phone] Exam Date: 03/20/20211944 FAX #: Reason: HISTORY OF LIVER DISEASE EXAMS: CPT: [id number] US ABDOMEN LTD [id number] EXAM: - US ABDOMEN LTD INDICATION: HISTORY [...] intrahepatic or extrahepatic biliary ductal dilatation seen. The extrahepatic bile duct measures 6mm in diameter. Gallbladder: There are gallstones seen. Sonographic Urena sign is negative. The gallbladder wall measures [...] clinically warranted, consider correlation with MRCP. at [facility] Reported and signed by: Jose Ron M.D. PAGE 1 Signed Report (CONTINUED) Name: MI MCKENNA [facility] : 1950 Age/S: 70 /M [address] Unit #: [id number] Loc: [place] [address] Phys: Alexus Gomez MD Acct: [id number] Dis Date: Status: ADM IN PHONE #: [phone] Exam Date: 03/20/20211944 FAX #: Reason: HISTORYOF LIVER DISEASE EXAMS: CPT: [id number] US ABDOMEN LTD [id number] <Continued> CC: Alexus Gomez MD Technologist: YURIY Acuña Trnnmb Date/Time: 03/20/2021 (1952) [id number] PAGE 2 Signed ReportName: MI MCKENNA [facility] : 1950 Age/S: 70 / M [address] Unit #: [id number] Loc: [place] [address] Phys: Alexus Gomez MD Acct: [id number] Dis Date: Status: ADM IN PHONE #: [phone] Exam Date: 03/20/20211944 FAX #: Reason: HISTORY OF LIVER DISEASE EXAMS: CPT:[id number] ABDOMEN LTD 93930 <Continued> Orig Print D/T: S: 03/20/2021 (1955) Probe: PAGE 3Signed Report- XR TOE(S) 2+V [id number] 19:23:00 [facility] 1950 Sex: M Name: MI MCKENNA [facility] : 1950 Age/S: 70 / M [address] Unit #: [id number] Loc: [place] [address] Phys: Alexus Gomez MD Acct: [id number] Dis Date: Status: ADM IN PHONE #: [phone] Exam Date: 03/20/20211899 FAX #: Reason: R big toe swelling/tender EXAMS: CPT: [id number] XR TOE(S) 2+[place] [address] Fluoro Time: DAP (Gy m2): Air Kerma [...] mid to distal foot. IMPRESSION: Osteopenia diminishes sensitivity.Suspect acute fracture involving the proximal phalanx of the 1st digit. Moderate amount of soft tissue swelling. at 1923 Reported and signed by: Jose Ron M.D. CC: Alexus Gomez MD; Briseida Montana MD PAGE 1 Signed Report Name: MI MCKENNA [facility] : 1950 Age/S: 70 / M [address] Unit #: [id number] Loc: [place] [address] Phys: Alexus Gomez MD Acct: [id number] Dis Date: Status: ADM IN PHONE #: [phone] Exam Date: 03/20/2021 1900 FAX #: Reason: R big toe swelling/tender EXAMS: CPT: [id number] XR TOE(S) 2+V [place] 78392 Fluoro Time: DAP (Gy m2): Air Kerma (mGy): <Continued> Technologist: RT Albert(Saul) Trnscb Date/Time: 03/20/2021 (1922) Ivis.AH26 Orig Print D/T: S: 03/20/2021 (1925) PAGE 2 Signed Report- XR FOOT 2 VIEWS [id number] 19:23:00 [facility] : 1950 Sex: M Name: MI MCKENNA [facility] : 1950 Age/S: 70 / M [address] Unit #: [id number] Loc: [place] [address] Phys: Aelxus Gomez MD Acct: [id number] Dis Date: Status: ADM IN PHONE #: [phone] Exam Date: 03/20/2021 1855 FAX #: Reason: evaluate for fracture/tenderness EXAMS: CPT: [id number] [place]R [place] [address] [place] [address] Fluoro Time: DAP (Gy m2): Air Kerma [...] amount ofsoft tissue swelling. at 1923 Reported a nd signed by: Jose Ron M.D. CC: Alexus Gomez MD; Briseida Montana MD PAGE 1 Signed Report Name: MI MCKENNA [facility] : 1950 Age/S: 70 / M [address] [place] [address] Unit #: [id number] Loc: [place] [address] Phys: Alexus Gomez MD Acct: [id number] Dis Date: Status: ADM IN PHONE#: [phone] Exam Date: 03/20/2021 1855 FAX #: Reason: evaluate for fracture/tenderness EXAMS: CPT: [id number] XR FOOT [address] [place] [address] Fluoro Time: DAP (Gy m2): Air Kerma (mGy): <Continued> Technologist: RT Albert(R) Trnscb Date/Time: 03/20/2021 (1922) EnderAH26 Orig Print D/T: S: 03/20/2021 (1925) PAGE 2 Signed ReportCBC W/AUTO [id number] 15:58:00 Test Item Value Reference Range Interpretation [...] code YES DIFF/SCN CRITERIA = MDIFF) WBC [id number] 15:58:00 Test Item Value Reference Range Interpretation Comments SEGMENTED NEUTROPHILS (test code = SEG) % 40-75 LYMPHOCYTE (test code = LYMPH) % 12.6-43.5 CBC W/AUTO [id number] 15:58:00 Test Item Value Reference Range Interpretation [...] code YES DIFF/SCN CRITERIA = MDIFF) WBC [id number] 15:58:00 Test Item Value Reference Range Interpretation [...] NORMAL (test code = PLTMORPH) CBC W/AUTO [id number] 15:58:00 Test Item Value Reference Range Interpretation [...] code YES DIFF/SCN CRITERIA = MDIFF) WBC [id number] 15:58:00 Test Item Value Reference Range Interpretation Comments SEGMENTED NEUTROPHILS (test code = SEG) % 40-75 LYMPHOCYTE (test code = LYMPH) % 12.6-43.5 NT PRO-BRAIN NATRIURETIC [id number] 15:48:00 Test Item Value Reference Range Interpretation Comments NT PRO-BRAIN NATRIURETIC PEPTI 1149 PG/ML 0-100 H (test code = PROBNP) UA RFLX MICR CULT IF [id number] 15:48:00 Test Item Value Reference Range Interpretation [...] = UACULT) Criteria Indication for culture: Dysuria/FrequencyLACTIC [id number] 15:45:00 Test Item Value Reference Range Interpretation Comments LACTIC ACID (test code = LACT) 1.3 mmol/L 0.4-2.0 N BASIC METABOLIC [id number] 15:45:00 Test Item Value Reference Range Interpretation [...] 8.5-10.1 N Completed by Nursing: NAJMAHEPATIC FUNCTION [id number] 15:45:00 Test Item Value Reference Range Interpretation [...] N code = ALKP) Completed by Nursing: [id number] 15:45:00 Test Item Value Reference Range Interpretation [...] method. Completed by Nursing: NOCOVID 19 INHOUSE [id number] 15:44:00 Test Item Value Reference Range Interpretation Comments COVID 19 INHOUSE AG NEGATIVE Negative Per manu facturer, (test code = negative result s should [id number]) be treated aspr esumptive and, if inconsi [...] symptoms co nsistent with COVID-19. BASIC METABOLIC [id number] 15:42:00 Test Item Value Reference Range Interpretation [...] 8.5-10.1 N Completed by Nursing: NOHEPATIC FUNCTION [id number] 15:42:00 Test Item Value Reference Range Interpretation [...] 50-136 code = ALKP) Completed by Nursing: [id number] 15:42:00 Test Item Value Reference Range Interpretation Comments TROPONIN-I (test code = TROPI) NG/ML 0.000-0.045 Completed by Nursing: NO- XR CHEST 1 [id number] 15:42:00 [facility] : 1950 Sex: M Name: MI MCKENNA [facility] : 1950 Age/S: 70 / M [address] Unit #: [id number] Loc: [place] [address] Phys: Briseida Montana MD Acct: [id number] Dis Date: Status: REG ER PHONE #: [phone] Exam Date: 03/20/2021 2889 FAX #: Reason: Code Sepsis EXAMS: CPT: [id number] XR CHEST 1 V 15640 Fluoro Time: DAP (Gy m2): Air Kerma (mGy): Chest Radiograph History: Code Sepsis Comparison: None at this time Location: H45 A single frontal view of the chest is submitted. The heart is within normal limits in size. Pulmonary vasculature is unremarkable. The visualized lung bermeo appearto be free of disease. The bones appear unremarkable. IMPRESSION: There is no radiographic evidenceof acute cardiopulmonary disease. at 1542 Reported and signed by: Jerrell Morales M.D. CC: Briseida Montana MD; Arabella HAND PAGE 1 Signed Report Name: MI MCKENNA : 1950 Age/S: 70 / M [address] Unit #: [id number] Loc: [place] [address] Phys: Briseida Montana MD Acct: [id number] Dis Date: Status: REG ER PHONE #: [phone] Exam Date: 03/20/2021 1539 FAX #: Reason: Code Sepsis EXAMS: CPT: [id number] XR CHEST 1 V 47360 Fluoro Time: DAP (Gy m2): Air Kerma (mGy): <Continued> Technologist: Liana Silva RT(R) Trnscb Date/Time: 03/20/2021 (154) t.SDR.PMT Orig PrintD/T: S: 03/20/2021 (6469) PAGE 2 Signed ReportUA RFLX MICR CULT IF [id number] 15:34:00 Test Item Value Reference Range Interpretation [...] = UACULT) Indication for culture: Dysuria/FrequencyCBC W/AUTO [id number] 15:32:00 Test Item Value Reference Range Interpretation [...] (test code = DIFF/SCN CRITERIA MDIFF) HGB [id number] 21:02:00 Test Item Value Reference Range Interpretation Comments HEMOGLOBIN (test code = HGB) 7.4 gram/dL 13.0-17.5 L HEMATOCRIT (test code = HCT) 23.3 % 42.0-52.0 L URINE AND [id number] 20:43:00 Test Item Value Reference Range Interpretation Comments UA Turbidity (test code = Clear (07/21/18 3:43 UA Turbidity) PM) [facility] AND [id number] 20:43:00 Test Item Value Reference Range Interpretation Comments UA Spec Grav (test code = UA Spec 1.010 1 Grav) [facility] AND [id number] 20:43:00 Test Item Value Reference Range Interpretation Comments UA Protein (test code = UA Negative mg/dL Protein) [facility] AND [id number] 20:43:00 Test Item Value Reference Range Interpretation Comments UA pH (test code = UA pH) 6.0 1 5.0-8.0 [facility] [id number] 20:43:00 Test Item Value Reference Range Interpretation Comments UA Ketones (test code = UA Negative mg/dL Ketones) [facility] AND [id number] 20:43:00 Test Item Value Reference Range Interpretation Comments UA Glucose (test code = UA Negative mg/dL Glucose) [facility] AND [id number] 20:43:00 Test Item Value Reference Range Interpretation Comments UA Bili (test code = Negative *NA*(07/21/18 UA Bili) 3:43 PM) [facility] AND [id number] 20:43:00 Test Item Value Reference Range Interpretation Comments UA Color (test code = UA Color) Ltyellow [facility] AND [id number] 20:43:00 Test Item Value Reference Range Interpretation Comments UA Urobilinogen (test code = UA 2.0 0.1-1.0 Urobilinogen) [facility] AND [id number] 20:43:00 Test Item Value Reference Range Interpretation Comments UA Blood (test code = Negative (07/21/18 3:43 UA Blood) PM) [facility] [id number] 20:43:00 Test Item Value Reference Range Interpretation Comments UA Leuk Est (test Negative (07/21/18 3:43 code = UA Leuk Est) PM) [facility] AND [id number] 20:43:00 Test Item Value Reference Range Interpretation Comments UA Nitrite (test code Negative (07/21/18 3:43 = UA Nitrite) PM) [facility] AND [id number] 20:43:00 Test Item Value Reference Range Interpretation Comments UA WBC (test code = no gt See_Comment [Automa didi message] The UA WBC) system which ge nerated this result transmit didi reference range : <=5. The reference range was not used to interpr et this result as james l/abnormal. [facility] AND [id number] 20:43:00 Test Item Value Reference Range Interpretation Comments UA Sq Epi (test code = UA Sq Occasional /LPF Epi) [facility] AND [id number] 20:43:00 Test Item Value Reference Range Interpretation Comments UA Bacteria (test code = UA Occasional /HPF Bacteria) [facility] AND [id number] 20:43:00 Test Item Value Reference Range Interpretation Comments UA Mucus (test code = UA Mucus) Few /LPF [facility] AND [id number] 20:43:00 Test Item Value Reference Range Interpretation Comments UA Turbidity (test code = Clear (07/21/18 3:43 UA Turbidity) PM) [facility] AND [id number] 20:43:00 Test Item Value Reference Range Interpretation Comments UA Spec Grav (test code = UA Spec 1.010 1 Grav) [facility] AND [id number] 20:43:00 Test Item Value Reference Range Interpretation Comments UA Protein (test code = UA Negative mg/dL Protein) [facility] AND [id number] 20:43:00 Test Item Value Reference Range Interpretation Comments UA pH (test code = UA pH) 6.0 1 5.0-8.0 [facility] AND [id number] 20:43:00 Test Item Value Reference Range Interpretation Comments UA Ketones (test code = UA Negative mg/dL Ketones) [facility] AND [id number] 20:43:00 Test Item Value Reference Range Interpretation Comments UA Glucose (test code = UA Negative mg/dL Glucose) [facility] AND [id number] 20:43:00 Test Item Value Reference Range Interpretation Comments UA Bili (test code = Negative *NA*(07/21/18 UA Bili) 3:43 PM) [facility] AND [id number] 20:43:00 Test Item Value Reference Range Interpretation Comments UA Color (test code = UA Color) Ltyellow [facility] AND [id number] 20:43:00 Test Item Value Reference Range Interpretation Comments UA Urobilinogen (test code = UA 2.0 0.1-1.0 Urobilinogen) [facility] AND [id number] 20:43:00 Test Item Value Reference Range Interpretation Comments UA Blood (test code = Negative (07/21/18 3:43 UA Blood) PM) [facility] AND [id number] 20:43:00 Test Item Value Reference Range Interpretation Comments UA Leuk Est (test Negative (07/21/18 3:43 code = UA Leuk Est) PM) [facility] AND [id number] 20:43:00 Test Item Value Reference Range Interpretation Comments UA Nitrite (test code Negative (07/21/18 3:43 = UA Nitrite) PM) [facility] AND [id number] 20:43:00 Test Item Value Reference Range Interpretation Comments UA WBC (test code = no gt See_Comment [Automa didi message] The UA WBC) system which ge nerated this result transmit didi reference range : <=5. The reference range was not used to interpr et this result as james l/abnormal. [facility] AND [id number] 20:43:00 Test Item Value Reference Range Interpretation Comments UA Sq Epi (test code = UA Sq Occasional /LPF Epi) [facility] AND [id number] 20:43:00 Test Item Value Reference Range Interpretation Comments UA Bacteria (test code = UA Occasional /HPF Bacteria) [facility] AND [id number] 20:43:00 Test Item Value Reference Range Interpretation Comments UA Mucus (test code = UA Mucus) Few /LPF [facility] AND [id number] 20:43:00 Test Item Value Reference Range Interpretation Comments UA Turbidity (test code = Clear (07/21/18 3:43 UA Turbidity) PM) [facility] AND [id number] 20:43:00 Test Item Value Reference Range Interpretation Comments UA Spec Grav (test code = UA Spec 1.010 1 Grav) [facility] AND [id number] 20:43:00 Test Item Value Reference Range Interpretation Comments UA Protein (test code = UA Negative mg/dL Protein) [facility] AND [id number] 20:43:00 Test Item Value Reference Range Interpretation Comments UA pH (test code = UA pH) 6.0 1 5.0-8.0 [facility] AND [id number] 20:43:00 Test Item Value Reference Range Interpretation Comments UA Ketones (test code = UA Negative mg/dL Ketones) [facility] AND [id number] 20:43:00 Test Item Value Reference Range Interpretation Comments UA Glucose (test code = UA Negative mg/dL Glucose) [facility] AND [id number] 20:43:00 Test Item Value Reference Range Interpretation Comments UA Bili (test code = Negative *NA*(07/21/18 UA Bili) 3:43 PM) [facility] AND [id number] 20:43:00 Test Item Value Reference Range Interpretation Comments UA Color (test code = UA Color) Ltyellow [facility] AND [id number] 20:43:00 Test Item Value Reference Range Interpretation Comments UA Urobilinogen (test code = UA 2.0 0.1-1.0 Urobilinogen) [facility] AND [id number] 20:43:00 Test Item Value Reference Range Interpretation Comments UA Blood (test code = Negative (07/21/18 3:43 UA Blood) PM) [facility] AND [id number] 20:43:00 Test Item Value Reference Range Interpretation Comments UA Leuk Est (test Negative (07/21/18 3:43 code = UA Leuk Est) PM) [facility] AND [id number] 20:43:00 Test Item Value Reference Range Interpretation Comments UA Nitrite (test code Negative (07/21/18 3:43 = UA Nitrite) PM) [facility] AND [id number] 20:43:00 Test Item Value Reference Range Interpretation Comments UA WBC (test code = no gt See_Comment [Automa didi message] The UA WBC) system which ge nerated this result transmit didi reference range : <=5. The reference range was not used to interpr et this result as james l/abnormal. [facility] AND [id number] 20:43:00 Test Item Value Reference Range Interpretation Comments UA Sq Epi (test code = UA Sq Occasional /LPF Epi) [facility] AND [id number] 20:43:00 Test Item Value Reference Range Interpretation Comments UA Bacteria (test code = UA Occasional /HPF Bacteria) [facility] AND [id number] 20:43:00 Test Item Value Reference Range Interpretation Comments UA Mucus (test code = UA Mucus) Few /LPF [facility] AND [id number] 20:43:00 Test Item Value Reference Range Interpretation Comments UA Turbidity (test code = Clear (07/21/18 3:43 UA Turbidity) PM) [facility] AND [id number] 20:43:00 Test Item Value Reference Range Interpretation Comments UA Spec Grav (test code = UA Spec 1.010 1 Grav) [facility] AND [id number] 20:43:00 Test Item Value Reference Range Interpretation Comments UA Protein (test code = UA Negative mg/dL Protein) [facility] AND [id number] 20:43:00 Test Item Value Reference Range Interpretation Comments UA pH (test code = UA pH) 6.0 1 5.0-8.0 [facility] AND [id number] 20:43:00 Test Item Value Reference Range Interpretation Comments UA Ketones (test code = UA Negative mg/dL Ketones) [facility] AND [id number] 20:43:00 Test Item Value Reference Range Interpretation Comments UA Glucose (test code = UA Negative mg/dL Glucose) [facility] AND [id number] 20:43:00 Test Item Value Reference Range Interpretation Comments UA Bili (test code = Negative *NA*(07/21/18 UA Bili) 3:43 PM) [facility] AND [id number] 20:43:00 Test Item Value Reference Range Interpretation Comments UA Color (test code = UA Color) Ltyellow [facility] AND [id number] 20:43:00 Test Item Value Reference Range Interpretation Comments UA Urobilinogen (test code = UA 2.0 0.1-1.0 Urobilinogen) [facility] AND [id number] 20:43:00 Test Item Value Reference Range Interpretation Comments UA Blood (test code = Negative (07/21/18 3:43 UA Blood) PM) [facility] AND [id number] 20:43:00 Test Item Value Reference Range Interpretation Comments UA Leuk Est (test Negative (07/21/18 3:43 code = UA Leuk Est) PM) [facility] AND [id number] 20:43:00 Test Item Value Reference Range Interpretation Comments UA Nitrite (test code Negative (07/21/18 3:43 = UA Nitrite) PM) [facility] AND [id number] 20:43:00 Test Item Value Reference Range Interpretation Comments UA WBC (test code = no gt See_Comment [Automa didi message] The UA WBC) system which ge nerated this result transmit didi reference range : <=5. The reference range was not used to interpr et this result as james l/abnormal. [facility] AND [id number] 20:43:00 Test Item Value Reference Range Interpretation Comments UA Sq Epi (test code = UA Sq Occasional /LPF Epi) [facility] AND [id number] 20:43:00 Test Item Value Reference Range Interpretation Comments UA Bacteria (test code = UA Occasional /HPF Bacteria) [facility] AND [id number] 20:43:00 Test Item Value Reference Range Interpretation Comments UA Mucus (test code = UA Mucus) Few /LPF [facility] [id number] 19:31:00 Test Item Value Reference Range Interpretation Comments ABO/Rh (test code = ABO/Rh) O POS [facility] [id number] 19:31:00 Test Item Value Reference Range Interpretation Comments Antibody Scrn (test Negative (07/21/18 2:31 code = Antibody Scrn) PM) [facility] [id number] 19:31:00 Test Item Value Reference Range Interpretation Comments Troponin-I (test code no gt See_Comment [Auto mated message] The = Troponin-I) system which g enerated this result transmit didi reference range : <=0.40. The reference r katie was not used to interpr et this result as james l/abnormal. [facility]2018-09-15 19:31:00 Test Item Value Reference Range Interpretation Comments Total CK (test code = Total CK) 107 12-191 [facility] [id number] 19:31:00 Test Item Value Reference Range Interpretation Comments Lipase Lvl (test code = Lipase Lvl) 320 73-393 [employer] [employer]2018-09-15 19:31:00 Test Item Value Reference Range Interpretation Comments Phosphorus (test code = Phosphorus) 3.4 2.5-4.5 [employer]2018-09-15 19:31:00 Test Item Value Reference Range Interpretation Comments Magnesium Lvl (test code = Magnesium 1.3 1.8-2.4 Lvl) [employer]2018-09-15 19:31:00 Test Item Value Reference Range Interpretation Comments A/G Ratio (test code = A/G Ratio) 0.8 1 0.7-1.6 [employer]2018-09-15 19:31:00 Test Item Value Reference Range Interpretation Comments Globulin (test code = Globulin) 3.6 2.7-4.2 [employer]2018-09-15 19:31:00 Test Item Value Reference Range Interpretation Comments AGAP (test code = AGAP) 13.3 10.0-20.0 [employer]2018-09-15 19:31:00 Test Item Value Reference Range Interpretation Comments B/C Ratio (test code = B/C Ratio) 17 1 6-25 [facility] [id number] 19:31:00 Test Item Value Reference Range Interpretation Comments ABO/Rh (test code = ABO/Rh) O POS [facility] [id number] 19:31:00 Test Item Value Reference Range Interpretation Comments Antibody Scrn (test Negative (07/21/18 2:31 code = Antibody Scrn) PM) [facility]2018-09-15 19:31:00 Test Item Value Reference Range Interpretation Comments Troponin-I (test code no gt See_Comment [Auto mated message] The = Troponin-I) system which g enerated this result transmit didi reference range : <=0.40. The reference r katie was not used to interpr et this result as james l/abnormal. [facility] CenterRedstone LogisticsCARDIAC [id number] 19:31:00 Test Item Value Reference Range Interpretation Comments Total CK (test code = Total CK) 107 12-191 [facility] [id number] 19:31:00 Test Item Value Reference Range Interpretation Comments Lipase Lvl (test code = Lipase Lvl) 320 73-393 [facility] [id number] 19:31:00 Test Item Value Reference Range Interpretation Comments Phosphorus (test code = Phosphorus) 3.4 2.5-4.5 [facility] CenterAuthern[facility] [id number] 19:31:00 Test Item Value Reference Range Interpretation Comments Magnesium Lvl (test code = Magnesium 1.3 1.8-2.4 Lvl) [facility] [id number] 19:31:00 Test Item Value Reference Range Interpretation Comments eGFR (test code = eGFR) 69 [facility] CenterAuthern[facility] [id number] 19:31:00 Test Item Value Reference Range Interpretation Comments A/G Ratio (test code = A/G Ratio) 0.8 1 0.7-1.6 [facility] CenterAuthern[facility] [id number] 19:31:00 Test Item Value Reference Range Interpretation Comments Globulin (test code = Globulin) 3.6 2.7-4.2 [facility] [id number] 19:31:00 Test Item Value Reference Range Interpretation Comments AGAP (test code = AGAP) 13.3 10.0-20.0 [facility] CenterAuthernative [id number] 19:31:00 Test Item Value Reference Range Interpretation Comments B/C Ratio (test code = B/C Ratio) 17 1 6-25 [facility] CenterAuthern[facility] [id number] 19:31:00 Test Item Value Reference Range Interpretation Comments eGFR (test code = eGFR) 69 [facility] CenterAuthern[facility] [id number] 19:31:00 Test Item Value Reference Range Interpretation Comments Calcium Lvl (test code = Calcium Lvl) 8.8 8.5-10.5 [facility]2018-09-15 19:31:00 Test Item Value Reference Range Interpretation Comments Chloride Lvl (test code = Chloride Lvl) 105 95-109 [place] [id number] 19:31:00 Test Item Value Reference Range Interpretation Comments Sodium Lvl (test code = Sodium Lvl) 141 135-145 [facility]2018-09-15 19:31:00 Test Item Value Reference Range Interpretation Comments Potassium Lvl (test code = Potassium 4.3 3.5-5.1 Lvl) [place] [id number] 19:31:00 Test Item Value Reference Range Interpretation Comments CO2 (test code = CO2) 27 24-32 [place] 566918-09-15 19:31:00 Test Item Value Reference Range Interpretation Comments Creatinine Lvl (test code = Creatinine 1.09 0.50-1.40 Lvl) [place] 566918-09-15 19:31:00 Test Item Value Reference Range Interpretation Comments Glucose Lvl (test code = Glucose Lvl) 134 70-99 [facility]2018-09-15 19:31:00 Test Item Value Reference Range Interpretation Comments BUN (test code = BUN) 19 7-22 [place] 566918-09-15 19:31:00 Test Item Value Reference Range Interpretation Comments AST (test code = AST) 40 See_Comment [Auto mated message] The system which ge nerated this result transmit didi reference range : <=37. The reference range was not used to interpr et this result as james l/abnormal. [facility]2018-09-15 19:31:00 Test Item Value Reference Range Interpretation Comments Albumin Lvl (test code = Albumin Lvl) 2.8 3.5-5.0 [place] [id number] 19:31:00 Test Item Value Reference Range Interpretation Comments Total Protein (test code = Total 6.4 6.4-8.4 Protein) [facility]2018-09-15 19:31:00 Test Item Value Reference Range Interpretation Comments ALT (test code = ALT) 47 See_Comment [Auto mated message] The system which ge nerated this result transmit didi reference range : <=65. The reference range was not used to interpr et this result as james l/abnormal. [facility] [id number] 19:31:00 Test Item Value Reference Range Interpretation Comments Alk Phos (test code = Alk Phos) 118 39-136 [facility] RHLFI6722-32-62 19:31:00 Test Item Value Reference Range Interpretation Comments Bili Total (test code = Bili Total) 1.1 0.2-1.3 [facility] IrvingAqhklepFDBDNFIEDW9810-29-13 19:31:00 Test Item Value Reference Range Interpretation Comments PTT (test code = PTT) 37.6 s 22.9-35.8 [facility] IrvingLdusrksBKLEUGQOMC7750-57-82 19:31:00 Test Item Value Reference Range Interpretation Comments INR (test code = INR) 1.03 1 0.85-1.17 [facility] IrvingSbipuzhWQLFMSHJBA5080-60-40 19:31:00 Test Item Value Reference Range Interpretation Comments PT (test code = PT) 13.5 s 12.0-14.7 [facility] IrvingZsgvoxjETJSQWUBXW5024-47-38 19:31:00 Test Item Value Reference Range Interpretation Comments WBC (test code = WBC) 5.8 3.7-10.4 [facility] IrvingUupugxpNBLJCWGMFC9842-47-67 19:31:00 Test Item Value Reference Range Interpretation Comments MCH (test code = MCH) 32.1 pg 27.0-31.0 [facility] IrvingDuyfjmvTJEGNUZASG6822-81-53 19:31:00 Test Item Value Reference Range Interpretation Comments MCHC (test code = MCHC) 34.2 32.0-36.0 [facility] IrvingOvrpkcvPAQXMGZQPS4299-06-55 19:31:00 Test Item Value Reference Range Interpretation Comments Hgb (test code = Hgb) 8.0 14.0-18.0 [facility] IrvingPwzxxckGSBNLLJJSY0807-64-65 19:31:00 Test Item Value Reference Range Interpretation Comments Hct (test code = Hct) 23.3 42.0-54.0 [facility] IrvingBuiyfbaTKMFPCVLHK6937-40-71 19:31:00 Test Item Value Reference Range Interpretation Comments MCV (test code = MCV) 93.7 80.0-94.0 [facility] IrvingUlloblyAOWFSDZFQU0399-18-38 19:31:00 Test Item Value Reference Range Interpretation Comments RBC (test code = RBC) 2.49 4.70-6.10 [place] 007528-09-15 19:31:00 Test Item Value Reference Range Interpretation Comments Platelet (test code = Platelet) 160 133-450 [facility]2018-09-15 19:31:00 Test Item Value Reference Range Interpretation Comments Calcium Lvl (test code = Calcium Lvl) 8.8 8.5-10.5 [facility] IrvingNafyibjGSSLLTFWHH6720-59-74 19:31:00 Test Item Value Reference Range Interpretation Comments MPV (test code = MPV) 7.7 7.4-10.4 [facility] IrvingChwwbxkJSUNROYXTZ5050-50-67 19:31:00 Test Item Value Reference Range Interpretation Comments RDW (test code = RDW) 14.5 11.5-14.5 [facility] IrvingYakfksbKTDVUNRWCI9584-74-20 19:31:00 Test Item Value Reference Range Interpretation Comments Basophils # (test code 0.1 See_Comment [Aut omated message] The = Basophils #) system which generated this result tra nsmitted reference range : <=0.2. The reference r katie was not used to int erpret this result as normal/abnormal . [facility] IrvingCxfkhvrPQALFWGVLT8513-54-29 19:31:00 Test Item Value Reference Range Interpretation Comments Eosinophils # (test code 0.2 See_Comment [A utomated message] The = Eosinophils #) system whic h generated this result tra nsmitted reference range : <=0.5. The reference r katie was not used to int erpret this result as normal/abnormal . [facility] IrvingVzugveuNGNXFUBOHC6319-15-12 19:31:00 Test Item Value Reference Range Interpretation Comments Segs (test code = Segs) 70.2 45.0-75.0 [facility] IrvingZimnhoyKMCCAUCBCA2171-13-24 19:31:00 Test Item Value Reference Range Interpretation Comments Neutrophils # (test code = Neutrophils 4.1 1.5-8.1 #) [facility] IrvingWhutvaySGXKNKCIQE1923-83-74 19:31:00 Test Item Value Reference Range Interpretation Comments Lymphocytes (test code = Lymphocytes) 12.6 20.0-40.0 [facility] IrvingZuwuvboAWWWAAVIIJ5753-67-40 19:31:00 Test Item Value Reference Range Interpretation Comments Monocytes (test code = Monocytes) 12.7 2.0-12.0 [facility] IrvingEnynvsmIWZBULGUAQ8461-05-46 19:31:00 Test Item Value Reference Range Interpretation Comments Eosinophils (test code = 3.6 See_Comment [A utomated message] The Eosinophils) system which ge nerated this result tra nsmitted reference range : <=4.0. The reference r katie was not used to int erpret this result as normal/abnormal . [facility] IrvingRlozesvGYVHJFJGIQ6273-84-03 19:31:00 Test Item Value Reference Range Interpretation Comments Monocytes # (test code 0.7 See_Comment [Aut omated message] The = Monocytes #) system which generated this result tra nsmitted reference range : <=0.8. The reference r katie was not used to int erpret this result as normal/abnormal . [facility] IrvingQvhulxkUFMNWTCQNR4718-29-68 19:31:00 Test Item Value Reference Range Interpretation Comments Lymphocytes # (test code = Lymphocytes 0.7 1.0-5.5 #) [facility] IrvingFtvhdvtEYPZRDKIAF8557-32-90 19:31:00 Test Item Value Reference Range Interpretation Comments Basophils (test code = 0.9 See_Comment [Aut omated message] The Basophils) system which ge nerated this result tra nsmitted reference range : <=1.0. The reference r katie was not used to int erpret this result as normal/abnormal . [facility]2018-09-15 19:31:00 Test Item Value Reference Range Interpretation Comments Chloride Lvl (test code = Chloride Lvl) 105 95-109 [facility]2018-09-15 19:31:00 Test Item Value Reference Range Interpretation Comments Sodium Lvl (test code = Sodium Lvl) 141 135-145 [facility]2018-09-15 19:31:00 Test Item Value Reference Range Interpretation Comments Potassium Lvl (test code = Potassium 4.3 3.5-5.1 Lvl) [facility]2018-09-15 19:31:00 Test Item Value Reference Range Interpretation Comments CO2 (test code = CO2) 27 24-32 [facility]2018-09-15 19:31:00 Test Item Value Reference Range Interpretation Comments Creatinine Lvl (test code = Creatinine 1.09 0.50-1.40 Lvl) [facility]2018-09-15 19:31:00 Test Item Value Reference Range Interpretation Comments Glucose Lvl (test code = Glucose Lvl) 134 70-99 [facility]2018-09-15 19:31:00 Test Item Value Reference Range Interpretation Comments BUN (test code = BUN) 19 7-22 [place] 566918-09-15 19:31:00 Test Item Value Reference Range Interpretation Comments AST (test code = AST) 40 See_Comment [Auto mated message] The system which ge nerated this result transmit didi reference range : <=37. The reference range was not used to interpr et this result as james l/abnormal. [facility]2018-09-15 19:31:00 Test Item Value Reference Range Interpretation Comments Albumin Lvl (test code = Albumin Lvl) 2.8 3.5-5.0 [facility]2018-09-15 19:31:00 Test Item Value Reference Range Interpretation Comments Total Protein (test code = Total 6.4 6.4-8.4 Protein) [facility]2018-09-15 19:31:00 Test Item Value Reference Range Interpretation Comments ALT (test code = ALT) 47 See_Comment [Auto mated message] The system which ge nerated this result transmit didi reference range : <=65. The reference range was not used to interpr et this result as james l/abnormal. [facility]2018-09-15 19:31:00 Test Item Value Reference Range Interpretation Comments Alk Phos (test code = Alk Phos) 118 39-136 [facility]2018-09-15 19:31:00 Test Item Value Reference Range Interpretation Comments Bili Total (test code = Bili Total) 1.1 0.2-1.3 [facility] IrvingSyypbxyVAPMLZUUOT0094-08-18 19:31:00 Test Item Value Reference Range Interpretation Comments PTT (test code = PTT) 37.6 s 22.9-35.8 [place] 007528-09-15 19:31:00 Test Item Value Reference Range Interpretation Comments INR (test code = INR) 1.03 1 0.85-1.17 [place] 007528-09-15 19:31:00 Test Item Value Reference Range Interpretation Comments PT (test code = PT) 13.5 s 12.0-14.7 [place] 007528-09-15 19:31:00 Test Item Value Reference Range Interpretation Comments WBC (test code = WBC) 5.8 3.7-10.4 [facility] IrvingZuivyjhKCZVYCEISE6472-34-92 19:31:00 Test Item Value Reference Range Interpretation Comments MCH (test code = MCH) 32.1 pg 27.0-31.0 [facility] IrvingQmhsrheDTKGIXGCIQ2261-23-59 19:31:00 Test Item Value Reference Range Interpretation Comments MCHC (test code = MCHC) 34.2 32.0-36.0 [facility] IrvingNqdwwupJCTXPWGJNP8384-95-14 19:31:00 Test Item Value Reference Range Interpretation Comments Hgb (test code = Hgb) 8.0 14.0-18.0 [facility] IrvingYynnvzpIHPUHADTDC4172-68-30 19:31:00 Test Item Value Reference Range Interpretation Comments Hct (test code = Hct) 23.3 42.0-54.0 [facility] IrvingTndxeuvESTXGBYPRP0342-67-84 19:31:00 Test Item Value Reference Range Interpretation Comments MCV (test code = MCV) 93.7 80.0-94.0 [facility] IrvingLjxvsofACVPIRNPRV8299-61-56 19:31:00 Test Item Value Reference Range Interpretation Comments RBC (test code = RBC) 2.49 4.70-6.10 [facility] IrvingLbfhwglSEZSMLPTLE0746-01-43 19:31:00 Test Item Value Reference Range Interpretation Comments Platelet (test code = Platelet) 160 133-450 [facility] IrvingFsgntdmZSRJMXVLCI6776-94-11 19:31:00 Test Item Value Reference Range Interpretation Comments MPV (test code = MPV) 7.7 7.4-10.4 [facility] IrvingHoyrkrtMPKNULIXRQ7019-19-64 19:31:00 Test Item Value Reference Range Interpretation Comments RDW (test code = RDW) 14.5 11.5-14.5 [facility] IrvingIcrucsjVEGAILGJYK1508-08-20 19:31:00 Test Item Value Reference Range Interpretation Comments Basophils # (test code 0.1 See_Comment [Aut omated message] The = Basophils #) system which generated this result tra nsmitted reference range : <=0.2. The reference r katie was not used to int erpret this result as normal/abnormal . [facility] IrvingJpdnmgoOPCNMZEPQR8615-29-23 19:31:00 Test Item Value Reference Range Interpretation Comments Eosinophils # (test code 0.2 See_Comment [A utomated message] The = Eosinophils #) system [facility] h generated this result tra nsmitted reference range : <=0.5. The reference r katie was not used to int erpret this result as normal/abnormal . [facility] IrvingLhoogaeAMKMOTOMNS4479-47-89 19:31:00 Test Item Value Reference Range Interpretation Comments Segs (test code = Segs) 70.2 45.0-75.0 [facility] IrvingOtfqvhrOJXGJBJPGY2371-95-28 19:31:00 Test Item Value Reference Range Interpretation Comments Neutrophils # (test code = Neutrophils 4.1 1.5-8.1 #) [facility] IrvingNgaclbwXEELFCZXUY6103-84-51 19:31:00 Test Item Value Reference Range Interpretation Comments Lymphocytes (test code = Lymphocytes) 12.6 20.0-40.0 [facility] IrvingXorcncjBXFOXGULRL7424-45-85 19:31:00 Test Item Value Reference Range Interpretation Comments Monocytes (test code = Monocytes) 12.7 2.0-12.0 [facility] IrvingRcuvlxlIPTIESNHEV7510-43-75 19:31:00 Test Item Value Reference Range Interpretation Comments Eosinophils (test code = 3.6 See_Comment [A utomated message] The Eosinophils) system which ge nerated this result tra nsmitted reference range : <=4.0. The reference r katie was not used to int erpret this result as normal/abnormal . [facility] IrvingAuxmyhwLJMEDZFIWL0217-77-10 19:31:00 Test Item Value Reference Range Interpretation Comments Monocytes # (test code 0.7 See_Comment [Aut omated message] The = Monocytes #) system which generated this result tra nsmitted reference range : <=0.8. The reference r katie was not used to int erpret this result as normal/abnormal . [facility] IrvingDhxtczfHXMPDGCKIC0718-49-47 19:31:00 Test Item Value Reference Range Interpretation Comments Lymphocytes # (test code = Lymphocytes 0.7 1.0-5.5 #) [facility] IrvingStxzapaACNMGDJTTM2632-04-84 19:31:00 Test Item Value Reference Range Interpretation Comments Basophils (test code = 0.9 See_Comment [Aut omated message] The Basophils) system which ge nerated this result tra nsmitted reference range : <=1.0. The reference r katie was not used to int erpret this result as normal/abnormal . [facility] XPFQEIF4216-91-39 19:31:00 Test Item Value Reference Range Interpretation Comments ABO/Rh (test code = ABO/Rh) O POS [facility] GOSO [id number] 19:31:00 Test Item Value Reference Range Interpretation Comments Antibody Scrn (test Negative (07/21/18 2:31 code = Antibody Scrn) PM) [facility] [id number] 19:31:00 Test Item Value Reference Range Interpretation Comments Troponin-I (test code no gt See_Comment [Auto mated message] The = Troponin-I) system which g enerated this result transmit didi reference range : <=0.40. The reference r katie was not used to interpr et this result as james l/abnormal. [facility] IAQYCWC3267-58-62 19:31:00 Test Item Value Reference Range Interpretation Comments Total CK (test code = Total CK) 107 12-191 [facility] VNRTF2555-31-19 19:31:00 Test Item Value Reference Range Interpretation Comments Lipase Lvl (test code = Lipase Lvl) 320 73-393 [facility] [employer] UQEVT0525-54-99 19:31:00 Test Item Value Reference Range Interpretation Comments Phosphorus (test code = Phosphorus) 3.4 2.5-4.5 [facility]2018-09-15 19:31:00 Test Item Value Reference Range Interpretation Comments Magnesium Lvl (test code = Magnesium 1.3 1.8-2.4 Lvl) [facility]2018-09-15 19:31:00 Test Item Value Reference Range Interpretation Comments A/G Ratio (test code = A/G Ratio) 0.8 1 0.7-1.6 [facility]2018-09-15 19:31:00 Test Item Value Reference Range Interpretation Comments Globulin (test code = Globulin) 3.6 2.7-4.2 [facility]2018-09-15 19:31:00 Test Item Value Reference Range Interpretation Comments AGAP (test code = AGAP) 13.3 10.0-20.0 [facility]2018-09-15 19:31:00 Test Item Value Reference Range Interpretation Comments B/C Ratio (test code = B/C Ratio) 17 1 6-25 [place] 566918-09-15 19:31:00 Test Item Value Reference Range Interpretation Comments eGFR (test code = eGFR) 69 [facility]2018-09-15 19:31:00 Test Item Value Reference Range Interpretation Comments Calcium Lvl (test code = Calcium Lvl) 8.8 8.5-10.5 [facility]2018-09-15 19:31:00 Test Item Value Reference Range Interpretation Comments Chloride Lvl (test code = Chloride Lvl) 105 95-109 [facility]2018-09-15 19:31:00 Test Item Value Reference Range Interpretation Comments Sodium Lvl (test code = Sodium Lvl) 141 135-145 [facility]2018-09-15 19:31:00 Test Item Value Reference Range Interpretation Comments Potassium Lvl (test code = Potassium 4.3 3.5-5.1 Lvl) [facility]2018-09-15 19:31:00 Test Item Value Reference Range Interpretation Comments CO2 (test code = CO2) 27 24-32 [place] 566918-09-15 19:31:00 Test Item Value Reference Range Interpretation Comments Creatinine Lvl (test code = Creatinine 1.09 0.50-1.40 Lvl) [facility]2018-09-15 19:31:00 Test Item Value Reference Range Interpretation Comments Glucose Lvl (test code = Glucose Lvl) 134 70-99 [facility]2018-09-15 19:31:00 Test Item Value Reference Range Interpretation Comments BUN (test code = BUN) 19 7-22 [place] 566918-09-15 19:31:00 Test Item Value Reference Range Interpretation Comments AST (test code = AST) 40 See_Comment [Auto mated message] The system which ge nerated this result transmit didi reference range : <=37. The reference range was not used to interpr et this result as james l/abnormal. [place] 566918-09-15 19:31:00 Test Item Value Reference Range Interpretation Comments Albumin Lvl (test code = Albumin Lvl) 2.8 3.5-5.0 [place] 566918-09-15 19:31:00 Test Item Value Reference Range Interpretation Comments Total Protein (test code = Total 6.4 6.4-8.4 Protein) [facility]2018-09-15 19:31:00 Test Item Value Reference Range Interpretation Comments ALT (test code = ALT) 47 See_Comment [Auto mated message] The system which ge nerated this result transmit didi reference range : <=65. The reference range was not used to interpr et this result as james l/abnormal. [facility]2018-09-15 19:31:00 Test Item Value Reference Range Interpretation Comments Alk Phos (test code = Alk Phos) 118 39-136 [facility]2018-09-15 19:31:00 Test Item Value Reference Range Interpretation Comments Bili Total (test code = Bili Total) 1.1 0.2-1.3 [facility] IrvingTlxfnniMJCUQGUDWY7547-00-03 19:31:00 Test Item Value Reference Range Interpretation Comments PTT (test code = PTT) 37.6 s 22.9-35.8 [facility] IrvingKgeasfeEJCEGEBFEW0978-10-61 19:31:00 Test Item Value Reference Range Interpretation Comments INR (test code = INR) 1.03 1 0.85-1.17 [facility] IrvingJcbvywoTZGAYYQEVQ3239-24-75 19:31:00 Test Item Value Reference Range Interpretation Comments PT (test code = PT) 13.5 s 12.0-14.7 [facility] IrvingSlauyaeCKAEIVQBAL1489-56-09 19:31:00 Test Item Value Reference Range Interpretation Comments WBC (test code = WBC) 5.8 3.7-10.4 [facility] IrvingAcsmptiKCGDDZWDBF4693-58-13 19:31:00 Test Item Value Reference Range Interpretation Comments MCH (test code = MCH) 32.1 pg 27.0-31.0 [facility] IrvingTpgsvnaDKQANQBDBO7811-69-63 19:31:00 Test Item Value Reference Range Interpretation Comments MCHC (test code = MCHC) 34.2 32.0-36.0 [facility] IrvingZlnmjeiHONDUVWWBN7192-24-11 19:31:00 Test Item Value Reference Range Interpretation Comments Hgb (test code = Hgb) 8.0 14.0-18.0 [facility] IrvingGfwxehiHHLGXARQTH5077-65-61 19:31:00 Test Item Value Reference Range Interpretation Comments Hct (test code = Hct) 23.3 42.0-54.0 [facility] IrvingMeyueheXOGADIQQCW8240-77-63 19:31:00 Test Item Value Reference Range Interpretation Comments MCV (test code = MCV) 93.7 80.0-94.0 [facility] IrvingTssodlhFCBVZISUII8664-97-08 19:31:00 Test Item Value Reference Range Interpretation Comments RBC (test code = RBC) 2.49 4.70-6.10 [facility] IrvingTpmtedqUMVZHYJXLQ7623-85-53 19:31:00 Test Item Value Reference Range Interpretation Comments Platelet (test code = Platelet) 160 133-450 [facility] IrvingLtxsflwWWYEGBNIOB0082-57-08 19:31:00 Test Item Value Reference Range Interpretation Comments MPV (test code = MPV) 7.7 7.4-10.4 [facility] IrvingKmstnquRGQVURJYEA0267-90-40 19:31:00 Test Item Value Reference Range Interpretation Comments RDW (test code = RDW) 14.5 11.5-14.5 [facility] IrvingOnqanyhDBWWBHNKMH7269-25-21 19:31:00 Test Item Value Reference Range Interpretation Comments Basophils # (test code 0.1 See_Comment [Aut omated message] The = Basophils #) system which generated this result tra nsmitted reference range : <=0.2. The reference r katie was not used to int erpret this result as normal/abnormal . [facility] IrvingZxulayvWBBCDFLEAP9290-91-03 19:31:00 Test Item Value Reference Range Interpretation Comments Eosinophils # (test code 0.2 See_Comment [A utomated message] The = Eosinophils #) system whic h generated this result tra nsmitted reference range : <=0.5. The reference r katie was not used to int erpret this result as normal/abnormal . [facility] IrvingCzgrqiyZABLKWISQU2131-39-24 19:31:00 Test Item Value Reference Range Interpretation Comments Segs (test code = Segs) 70.2 45.0-75.0 [facility] IrvingZaatxzlQZVMPDSXLO6058-72-12 19:31:00 Test Item Value Reference Range Interpretation Comments Neutrophils # (test code = Neutrophils 4.1 1.5-8.1 #) [facility] IrvingIoormnrNCZXOQLNLR6223-44-93 19:31:00 Test Item Value Reference Range Interpretation Comments Lymphocytes (test code = Lymphocytes) 12.6 20.0-40.0 [facility] IrvingXvvewuePBPAXRYVHY6233-27-14 19:31:00 Test Item Value Reference Range Interpretation Comments Monocytes (test code = Monocytes) 12.7 2.0-12.0 [facility] CenterMttwjumINDOOYDEAO6270-06-90 19:31:00 Test Item Value Reference Range Interpretation Comments Eosinophils (test code = 3.6 See_Comment [A utomated message] The Eosinophils) system which ge nerated this result tra nsmitted reference range : <=4.0. The reference r katie was not used to int erpret this result as normal/abnormal . [facility] TclqvdkVALVATVYKX6878-93-33 19:31:00 Test Item Value Reference Range Interpretation Comments Monocytes # (test code 0.7 See_Comment [Aut omated message] The = Monocytes #) system which generated this result tra nsmitted reference range : <=0.8. The reference r katie was not used to int erpret this result as normal/abnormal . [facility] CenterUefbbmdEYPKPIJQTT8992-75-41 19:31:00 Test Item Value Reference Range Interpretation Comments Lymphocytes # (test code = Lymphocytes 0.7 1.0-5.5 #) [facility] CenterBnpmvueTPDKLQWGQZ2296-12-07 19:31:00 Test Item Value Reference Range Interpretation Comments Basophils (test code = 0.9 See_Comment [Aut omated message] The Basophils) system which ge nerated this result tra nsmitted reference range : <=1.0. The reference r katie was not used to int erpret this result as normal/abnormal . [facility] [id number] 19:31:00 Test Item Value Reference Range Interpretation Comments ABO/Rh (test code = ABO/Rh) O POS [facility] GOSO HZHMJNH2753-49-21 19:31:00 Test Item Value Reference Range Interpretation Comments Antibody Scrn (test Negative (07/21/18 2:31 code = Antibody Scrn) PM) [facility] CenterSavtira Corporation [id number] 19:31:00 Test Item Value Reference Range Interpretation Comments Troponin-I (test code no gt See_Comment [Auto mated message] The = Troponin-I) system which g enerated this result transmit didi reference range : <=0.40. The reference r katie was not used to interpr et this result as james l/abnormal. Smava [id number] 19:31:00 Test Item Value Reference Range Interpretation Comments Total CK (test code = Total CK) 107 12-191 [facility]2018-09-15 19:31:00 Test Item Value Reference Range Interpretation Comments Lipase Lvl (test code = Lipase Lvl) 320 73-393 [facility]2018-09-15 19:31:00 Test Item Value Reference Range Interpretation Comments Phosphorus (test code = Phosphorus) 3.4 2.5-4.5 [facility]2018-09-15 19:31:00 Test Item Value Reference Range Interpretation Comments Magnesium Lvl (test code = Magnesium 1.3 1.8-2.4 Lvl) [facility]2018-09-15 19:31:00 Test Item Value Reference Range Interpretation Comments A/G Ratio (test code = A/G Ratio) 0.8 1 0.7-1.6 [facility]2018-09-15 19:31:00 Test Item Value Reference Range Interpretation Comments Globulin (test code = Globulin) 3.6 2.7-4.2 [facility]2018-09-15 19:31:00 Test Item Value Reference Range Interpretation Comments AGAP (test code = AGAP) 13.3 10.0-20.0 [facility]2018-09-15 19:31:00 Test Item Value Reference Range Interpretation Comments B/C Ratio (test code = B/C Ratio) 17 1 6-25 [facility]2018-09-15 19:31:00 Test Item Value Reference Range Interpretation Comments eGFR (test code = eGFR) 69 [facility]2018-09-15 19:31:00 Test Item Value Reference Range Interpretation Comments Calcium Lvl (test code = Calcium Lvl) 8.8 8.5-10.5 [facility]2018-09-15 19:31:00 Test Item Value Reference Range Interpretation Comments Chloride Lvl (test code = Chloride Lvl) 105 95-109 [facility]2018-09-15 19:31:00 Test Item Value Reference Range Interpretation Comments Sodium Lvl (test code = Sodium Lvl) 141 135-145 [facility]2018-09-15 19:31:00 Test Item Value Reference Range Interpretation Comments Potassium Lvl (test code = Potassium 4.3 3.5-5.1 Lvl) [facility]2018-09-15 19:31:00 Test Item Value Reference Range Interpretation Comments CO2 (test code = CO2) 27 24-32 [facility]2018-09-15 19:31:00 Test Item Value Reference Range Interpretation Comments Creatinine Lvl (test code = Creatinine 1.09 0.50-1.40 Lvl) [facility]2018-09-15 19:31:00 Test Item Value Reference Range Interpretation Comments Glucose Lvl (test code = Glucose Lvl) 134 70-99 [facility]2018-09-15 19:31:00 Test Item Value Reference Range Interpretation Comments BUN (test code = BUN) 19 7-22 [facility]2018-09-15 19:31:00 Test Item Value Reference Range Interpretation Comments AST (test code = AST) 40 See_Comment [Auto mated message] The system which ge nerated this result transmit didi reference range : <=37. The reference range was not used to interpr et this result as james l/abnormal. [facility]2018-09-15 19:31:00 Test Item Value Reference Range Interpretation Comments Albumin Lvl (test code = Albumin Lvl) 2.8 3.5-5.0 [facility]2018-09-15 19:31:00 Test Item Value Reference Range Interpretation Comments Total Protein (test code = Total 6.4 6.4-8.4 Protein) [facility]2018-09-15 19:31:00 Test Item Value Reference Range Interpretation Comments ALT (test code = ALT) 47 See_Comment [Auto mated message] The system which ge nerated this result transmit didi reference range : <=65. The reference range was not used to interpr et this result as james l/abnormal. [facility]2018-09-15 19:31:00 Test Item Value Reference Range Interpretation Comments Alk Phos (test code = Alk Phos) 118 39-136 [facility]2018-09-15 19:31:00 Test Item Value Reference Range Interpretation Comments Bili Total (test code = Bili Total) 1.1 0.2-1.3 [facility] 19:31:00 Test Item Value Reference Range Interpretation Comments PTT (test code = PTT) 37.6 s 22.9-35.8 [facility] IrvingCyesdamZGDEHCVNCI5883-34-28 19:31:00 Test Item Value Reference Range Interpretation Comments INR (test code = INR) 1.03 1 0.85-1.17 [facility] Irvi[id number] 19:31:00 Test Item Value Reference Range Interpretation Comments PT (test code = PT) 13.5 s 12.0-14.7 [facility] IrvingTmbbkucHFZJUBKZCF0470-29-94 19:31:00 Test Item Value Reference Range Interpretation Comments WBC (test code = WBC) 5.8 3.7-10.4 [facility] IrvingViblfjnXSKFRYCCKZ2603-56-63 19:31:00 Test Item Value Reference Range Interpretation Comments MCH (test code = MCH) 32.1 pg 27.0-31.0 [facility] IrvingBntkfoyFBVYIEFXUW2808-42-93 19:31:00 Test Item Value Reference Range Interpretation Comments MCHC (test code = MCHC) 34.2 32.0-36.0 [facility] IrvingYpecmrcGLSWMTJRXH2617-76-16 19:31:00 Test Item Value Reference Range Interpretation Comments Hgb (test code = Hgb) 8.0 14.0-18.0 [facility] IrvingYujtcjtSUTXWZTSLP2076-99-77 19:31:00 Test Item Value Reference Range Interpretation Comments Hct (test code = Hct) 23.3 42.0-54.0 [facility] IrvingFlgzuocQFMOCZCRIC1506-32-63 19:31:00 Test Item Value Reference Range Interpretation Comments MCV (test code = MCV) 93.7 80.0-94.0 [facility] IrvingCtxvegdDDEQDLBTIX3260-87-27 19:31:00 Test Item Value Reference Range Interpretation Comments RBC (test code = RBC) 2.49 4.70-6.10 [facility] IrvingPjxoabgVBMPGXGEZM5945-99-53 19:31:00 Test Item Value Reference Range Interpretation Comments Platelet (test code = Platelet) 160 133-450 [facility] IrvingOfqvhgnZNUPRPXDUR5269-38-37 19:31:00 Test Item Value Reference Range Interpretation Comments MPV (test code = MPV) 7.7 7.4-10.4 [facility] IrvingWjxtgecSYQXVNXXSY1327-83-25 19:31:00 Test Item Value Reference Range Interpretation Comments RDW (test code = RDW) 14.5 11.5-14.5 [facility] IrvingMnfjedkGYHAPNYDVW2645-62-97 19:31:00 Test Item Value Reference Range Interpretation Comments Basophils # (test code 0.1 See_Comment [Aut omated message] The = Basophils #) system which generated this result tra nsmitted reference range : <=0.2. The reference r katie was not used to int erpret this result as normal/abnormal . [facility] IrvingGykzhyhYQIALQHSMR3331-56-22 19:31:00 Test Item Value Reference Range Interpretation Comments Eosinophils # (test code 0.2 See_Comment [A utomated message] The = Eosinophils #) system whic h generated this result tra nsmitted reference range : <=0.5. The reference r katie was not used to int erpret this result as normal/abnormal . [facility] IrvingSgsmpenFWDYXVLMJH2944-33-72 19:31:00 Test Item Value Reference Range Interpretation Comments Segs (test code = Segs) 70.2 45.0-75.0 [facility] IrvingUzqatyiPJQKKZFYSC4581-63-39 19:31:00 Test Item Value Reference Range Interpretation Comments Neutrophils # (test code = Neutrophils 4.1 1.5-8.1 #) [facility] IrvingErhhqugBRQNPIVMXP6716-19-98 19:31:00 Test Item Value Reference Range Interpretation Comments Lymphocytes (test code = Lymphocytes) 12.6 20.0-40.0 [facility] IrvingEzwqeriDWHMOMCMSR0728-47-83 19:31:00 Test Item Value Reference Range Interpretation Comments Monocytes (test code = Monocytes) 12.7 2.0-12.0 [facility] IrvingBntfvmpJDXFCPKCYW5208-04-24 19:31:00 Test Item Value Reference Range Interpretation Comments Eosinophils (test code = 3.6 See_Comment [A utomated message] The Eosinophils) system which ge nerated this result tra nsmitted reference range : <=4.0. The reference r katie was not used to int erpret this result as normal/abnormal . [facility] IrvingHuaanghEGQZGUGAMV9713-39-53 19:31:00 Test Item Value Reference Range Interpretation Comments Monocytes # (test code 0.7 See_Comment [Aut omated message] The = Monocytes #) system which generated this result tra nsmitted reference range : <=0.8. The reference r katie was not used to int erpret this result as normal/abnormal . [facility] IrvingExaubjoXJVFQZUCFM4904-30-56 19:31:00 Test Item Value Reference Range Interpretation Comments Lymphocytes # (test code = Lymphocytes 0.7 1.0-5.5 #) [facility] IrvingUzvdrpvWFUVLERMYW5558-66-17 19:31:00 Test Item Value Reference Range Interpretation Comments Basophils (test code = 0.9 See_Comment [Aut omated message] The Basophils) system which ge nerated this result tra nsmitted reference range : <=1.0. The reference r katie was not used to int erpret this result as normal/abnormal . [facility]2018-09-13 05:40:00 Test Item Value Reference Range Interpretation Comments Calcium Lvl (test code = Calcium Lvl) 8.3 8.5-10.5 [facility]2018-09-13 05:40:00 Test Item Value Reference Range Interpretation Comments AGAP (test code = AGAP) 13.6 10.0-20.0 [facility]2018-09-13 05:40:00 Test Item Value Reference Range Interpretation Comments eGFR (test code = eGFR) 67 [facility]2018-09-13 05:40:00 Test Item Value Reference Range Interpretation Comments CO2 (test code = CO2) 24 24-32 [facility]2018-09-13 05:40:00 Test Item Value Reference Range Interpretation Comments Chloride Lvl (test code = Chloride Lvl) 109 95-109 [facility]2018-09-13 05:40:00 Test Item Value Reference Range Interpretation Comments Potassium Lvl (test code = Potassium 4.6 3.5-5.1 Lvl) [facility]2018-09-13 05:40:00 Test Item Value Reference Range Interpretation Comments Sodium Lvl (test code = Sodium Lvl) 142 135-145 [facility]2018-09-13 05:40:00 Test Item Value Reference Range Interpretation Comments Creatinine Lvl (test code = Creatinine 1.12 0.50-1.40 Lvl) [facility]2018-09-13 05:40:00 Test Item Value Reference Range Interpretation Comments BUN (test code = BUN) 32 7-22 [facility]2018-09-13 05:40:00 Test Item Value Reference Range Interpretation Comments Glucose Lvl (test code = Glucose Lvl) 235 70-99 [facility] IrvingAosuwogBKPAOSQYIK0882-57-80 05:40:00 Test Item Value Reference Range Interpretation Comments Lymphocytes (test code = Lymphocytes) 16.2 20.0-40.0 [facility] IrvingPudnjxaBGSBWQPWDJ5821-23-20 05:40:00 Test Item Value Reference Range Interpretation Comments Segs (test code = Segs) 68.4 45.0-75.0 [facility] IrvingVikoqjpUOKYLDITCV6031-67-99 05:40:00 Test Item Value Reference Range Interpretation Comments Eosinophils (test code = 3.9 See_Comment [A utomated message] The Eosinophils) system which ge nerated this result tra nsmitted reference range : <=4.0. The reference r katie was not used to int erpret this result as normal/abnormal . [facility] IrvingSqyzcyzLEHVYELBOO1426-17-44 05:40:00 Test Item Value Reference Range Interpretation Comments Monocytes (test code = Monocytes) 10.6 2.0-12.0 [facility] IrvingYzohlbrVYAXOHPNZI4686-98-07 05:40:00 Test Item Value Reference Range Interpretation Comments Lymphocytes # (test code = Lymphocytes 0.6 1.0-5.5 #) [facility] IrvingQpgdzguYUQRVHYQGD7934-93-22 05:40:00 Test Item Value Reference Range Interpretation Comments Basophils (test code = 0.9 See_Comment [Aut omated message] The Basophils) system which ge nerated this result tra nsmitted reference range : <=1.0. The reference r katie was not used to int erpret this result as normal/abnormal . [facility] IrvingGttkkjsCMKFLJQBXE8374-21-93 05:40:00 Test Item Value Reference Range Interpretation Comments Neutrophils # (test code = Neutrophils 2.5 1.5-8.1 #) [facility] IrvingJequkufAFGQUFVKJN8591-70-45 05:40:00 Test Item Value Reference Range Interpretation Comments Monocytes # (test code 0.4 See_Comment [Aut omated message] The = Monocytes #) system which generated this result tra nsmitted reference range : <=0.8. The reference r katie was not used to int erpret this result as normal/abnormal . [facility] IrvingLsqasglXCSVJWXYGX4546-90-07 05:40:00 Test Item Value Reference Range Interpretation Comments Eosinophils # (test code 0.1 See_Comment [A utomated message] The = Eosinophils #) system whic h generated this result tra nsmitted reference range : <=0.5. The reference r katie was not used to int erpret this result as normal/abnormal . [facility] IrvingQohlhznRYZVMKGUEU2895-25-54 05:40:00 Test Item Value Reference Range Interpretation Comments MCH (test code = MCH) 31.7 pg 27.0-31.0 [facility] IrvingEmypvqnDLZKLPFWRJ9933-12-02 05:40:00 Test Item Value Reference Range Interpretation Comments MCHC (test code = MCHC) 34.3 32.0-36.0 [facility] IrvingQibgdsxTUHZGKBBJH5418-22-62 05:40:00 Test Item Value Reference Range Interpretation Comments RDW (test code = RDW) 13.8 11.5-14.5 [facility] IrvingSbrduciNZTJQSXEEV1759-70-17 05:40:00 Test Item Value Reference Range Interpretation Comments MCV (test code = MCV) 92.3 80.0-94.0 [facility] IrvingBrymbhxYSRLPTGWIZ3302-99-78 05:40:00 Test Item Value Reference Range Interpretation Comments Hct (test code = Hct) 19.8 42.0-54.0 [facility] IrvingBsvjpmpLTYLNPVTMA3533-98-36 05:40:00 Test Item Value Reference Range Interpretation Comments Hgb (test code = Hgb) 6.8 14.0-18.0 [facility] IrvingXonhhtbCHFRKUEVTU9317-27-71 05:40:00 Test Item Value Reference Range Interpretation Comments Platelet (test code = Platelet) 113 133-450 [facility] IrvingHpjyhshXXQJHHZMSN2617-25-83 05:40:00 Test Item Value Reference Range Interpretation Comments MPV (test code = MPV) 9.1 7.4-10.4 [facility] IrvingZvwrhlqXDWTUKLNVW7675-77-45 05:40:00 Test Item Value Reference Range Interpretation Comments WBC (test code = WBC) 3.7 3.7-10.4 [facility] IrvingDzgykgcFNHIZLLAGN4370-21-33 05:40:00 Test Item Value Reference Range Interpretation Comments RBC (test code = RBC) 2.15 4.70-6.10 [facility]2018-09-13 05:40:00 Test Item Value Reference Range Interpretation Comments Calcium Lvl (test code = Calcium Lvl) 8.3 8.5-10.5 [facility]2018-09-13 05:40:00 Test Item Value Reference Range Interpretation Comments AGAP (test code = AGAP) 13.6 10.0-20.0 [facility]2018-09-13 05:40:00 Test Item Value Reference Range Interpretation Comments eGFR (test code = eGFR) 67 [facility]2018-09-13 05:40:00 Test Item Value Reference Range Interpretation Comments CO2 (test code = CO2) 24 24-32 [place] 566918-09-13 05:40:00 Test Item Value Reference Range Interpretation Comments Chloride Lvl (test code = Chloride Lvl) 109 95-109 [place] 566918-09-13 05:40:00 Test Item Value Reference Range Interpretation Comments Potassium Lvl (test code = Potassium 4.6 3.5-5.1 Lvl) [facility]2018-09-13 05:40:00 Test Item Value Reference Range Interpretation Comments Sodium Lvl (test code = Sodium Lvl) 142 135-145 [facility]2018-09-13 05:40:00 Test Item Value Reference Range Interpretation Comments Creatinine Lvl (test code = Creatinine 1.12 0.50-1.40 Lvl) [facility]2018-09-13 05:40:00 Test Item Value Reference Range Interpretation Comments BUN (test code = BUN) 32 7-22 [facility]2018-09-13 05:40:00 Test Item Value Reference Range Interpretation Comments Glucose Lvl (test code = Glucose Lvl) 235 70-99 [facility] IrvingTfldjvvKLAWZLJIMZ3986-94-55 05:40:00 Test Item Value Reference Range Interpretation Comments Lymphocytes (test code = Lymphocytes) 16.2 20.0-40.0 [facility] IrvingClbpdrdKCDMTOCCCQ7736-84-86 05:40:00 Test Item Value Reference Range Interpretation Comments Segs (test code = Segs) 68.4 45.0-75.0 [facility] IrvingXwrnvgvOFTSQUCJTD6700-13-00 05:40:00 Test Item Value Reference Range Interpretation Comments Eosinophils (test code = 3.9 See_Comment [A utomated message] The Eosinophils) system which ge nerated this result tra nsmitted reference range : <=4.0. The reference r katie was not used to int erpret this result as normal/abnormal . [facility] IrvingGtoxcikHLPNHADNKP6358-63-24 05:40:00 Test Item Value Reference Range Interpretation Comments Monocytes (test code = Monocytes) 10.6 2.0-12.0 [facility] IrvingYwrikvuRECCVBPXAD6522-75-43 05:40:00 Test Item Value Reference Range Interpretation Comments Lymphocytes # (test code = Lymphocytes 0.6 1.0-5.5 #) [facility] IrvingDbmqoxcQITRDCQRZX9856-88-73 05:40:00 Test Item Value Reference Range Interpretation Comments Basophils (test code = 0.9 See_Comment [Aut omated message] The Basophils) system which ge nerated this result tra nsmitted reference range : <=1.0. The reference r katie was not used to int erpret this result as normal/abnormal . [facility] IrvingQbvwfqwWLTZWUVINQ8126-32-82 05:40:00 Test Item Value Reference Range Interpretation Comments Neutrophils # (test code = Neutrophils 2.5 1.5-8.1 #) [facility] IrvingXpcammjSLRVKRTHTE1973-48-01 05:40:00 Test Item Value Reference Range Interpretation Comments Monocytes # (test code 0.4 See_Comment [Aut omated message] The = Monocytes #) system which generated this result tra nsmitted reference range : <=0.8. The reference r katie was not used to int erpret this result as normal/abnormal . [facility] IrvingNyyprqlEKHDIQBKBE6900-54-62 05:40:00 Test Item Value Reference Range Interpretation Comments Eosinophils # (test code 0.1 See_Comment [A utomated message] The = Eosinophils #) system whic h generated this result tra nsmitted reference range : <=0.5. The reference r katie was not used to int erpret this result as normal/abnormal . [facility] IrvingCvawtnpUXMBFJAQNH9678-21-03 05:40:00 Test Item Value Reference Range Interpretation Comments MCH (test code = MCH) 31.7 pg 27.0-31.0 [facility] IrvingBajlpryINSJGUIDAW8326-75-82 05:40:00 Test Item Value Reference Range Interpretation Comments MCHC (test code = MCHC) 34.3 32.0-36.0 [facility] IrvingKaczpotCOTDNZRKUI4783-47-92 05:40:00 Test Item Value Reference Range Interpretation Comments RDW (test code = RDW) 13.8 11.5-14.5 [facility] IrvingWiloycuFCSTVTJUXG3940-50-12 05:40:00 Test Item Value Reference Range Interpretation Comments MCV (test code = MCV) 92.3 80.0-94.0 [facility] IrvingYvhlcddKEHEEQGDSA0509-86-20 05:40:00 Test Item Value Reference Range Interpretation Comments Hct (test code = Hct) 19.8 42.0-54.0 [facility] IrvingYpvdsisJPSXCYEXYY3356-78-57 05:40:00 Test Item Value Reference Range Interpretation Comments Hgb (test code = Hgb) 6.8 14.0-18.0 [facility] IrvingMpnfwpoIELXZSUMXD8853-33-34 05:40:00 Test Item Value Reference Range Interpretation Comments Platelet (test code = Platelet) 113 133-450 [facility] IrvingVunialiBUPUVZMGBN6675-74-30 05:40:00 Test Item Value Reference Range Interpretation Comments MPV (test code = MPV) 9.1 7.4-10.4 [facility] IrvingXflboomNZFWEOFOPL2878-77-30 05:40:00 Test Item Value Reference Range Interpretation Comments WBC (test code = WBC) 3.7 3.7-10.4 [facility] IrvingHzotvkkTGTZAYJTIT7676-03-84 05:40:00 Test Item Value Reference Range Interpretation Comments RBC (test code = RBC) 2.15 4.70-6.10 [facility]2018-09-13 05:40:00 Test Item Value Reference Range Interpretation Comments Calcium Lvl (test code = Calcium Lvl) 8.3 8.5-10.5 [facility]2018-09-13 05:40:00 Test Item Value Reference Range Interpretation Comments AGAP (test code = AGAP) 13.6 10.0-20.0 [facility]2018-09-13 05:40:00 Test Item Value Reference Range Interpretation Comments eGFR (test code = eGFR) 67 [facility]2018-09-13 05:40:00 Test Item Value Reference Range Interpretation Comments CO2 (test code = CO2) 24 24-32 [facility]2018-09-13 05:40:00 Test Item Value Reference Range Interpretation Comments Chloride Lvl (test code = Chloride Lvl) 109 95-109 [facility]2018-09-13 05:40:00 Test Item Value Reference Range Interpretation Comments Potassium Lvl (test code = Potassium 4.6 3.5-5.1 Lvl) [place] 566918-09-13 05:40:00 Test Item Value Reference Range Interpretation Comments Sodium Lvl (test code = Sodium Lvl) 142 135-145 [facility]2018-09-13 05:40:00 Test Item Value Reference Range Interpretation Comments Creatinine Lvl (test code = Creatinine 1.12 0.50-1.40 Lvl) [facility]2018-09-13 05:40:00 Test Item Value Reference Range Interpretation Comments BUN (test code = BUN) 32 7-22 [facility]2018-09-13 05:40:00 Test Item Value Reference Range Interpretation Comments Glucose Lvl (test code = Glucose Lvl) 235 70-99 [facility] IrvingIirinvyEUBQSRBAJD7011-79-51 05:40:00 Test Item Value Reference Range Interpretation Comments Lymphocytes (test code = Lymphocytes) 16.2 20.0-40.0 [facility] IrvingAojpjutHNVENUZOHW2764-90-17 05:40:00 Test Item Value Reference Range Interpretation Comments Segs (test code = Segs) 68.4 45.0-75.0 [facility] IrvingZdmthmaDIWVTCPLQB9604-92-51 05:40:00 Test Item Value Reference Range Interpretation Comments Eosinophils (test code = 3.9 See_Comment [A utomated message] The Eosinophils) system which ge nerated this result tra nsmitted reference range : <=4.0. The reference r katie was not used to int erpret this result as normal/abnormal . [facility] IrvingKnkurgjMHMQQQPYDA1437-54-79 05:40:00 Test Item Value Reference Range Interpretation Comments Monocytes (test code = Monocytes) 10.6 2.0-12.0 [facility] IrvingYylrbleOJNNQSIJWL9191-12-17 05:40:00 Test Item Value Reference Range Interpretation Comments Lymphocytes # (test code = Lymphocytes 0.6 1.0-5.5 #) [facility] IrvingWlkfqbcCGBAIKZINE6859-26-75 05:40:00 Test Item Value Reference Range Interpretation Comments Basophils (test code = 0.9 See_Comment [Aut omated message] The Basophils) system which ge nerated this result tra nsmitted reference range : <=1.0. The reference r katie was not used to int erpret this result as normal/abnormal . [facility] IrvingPhbratjSHBHJQPMAX2167-58-04 05:40:00 Test Item Value Reference Range Interpretation Comments Neutrophils # (test code = Neutrophils 2.5 1.5-8.1 #) [facility] IrvingTxgeedfEELJTJHXSS4851-08-20 05:40:00 Test Item Value Reference Range Interpretation Comments Monocytes # (test code 0.4 See_Comment [Aut omated message] The = Monocytes #) system which generated this result tra nsmitted reference range : <=0.8. The reference r katie was not used to int erpret this result as normal/abnormal . [facility] IrvingWzmhuuvDAGAXBQEVN5122-81-29 05:40:00 Test Item Value Reference Range Interpretation Comments Eosinophils # (test code 0.1 See_Comment [A utomated message] The = Eosinophils #) system whic h generated this result tra nsmitted reference range : <=0.5. The reference r katie was not used to int erpret this result as normal/abnormal . [facility] IrvingJjzcinpHBAFMEWTFU7752-38-53 05:40:00 Test Item Value Reference Range Interpretation Comments MCH (test code = MCH) 31.7 pg 27.0-31.0 [facility] IrvingFhquuwyHAOPRCVPBV8914-13-39 05:40:00 Test Item Value Reference Range Interpretation Comments MCHC (test code = MCHC) 34.3 32.0-36.0 [facility] IrvingRmwowrbFGRPYUFBNA8467-41-37 05:40:00 Test Item Value Reference Range Interpretation Comments RDW (test code = RDW) 13.8 11.5-14.5 [facility] IrvingIosofgwXQPEKHRINL1278-50-80 05:40:00 Test Item Value Reference Range Interpretation Comments MCV (test code = MCV) 92.3 80.0-94.0 [facility] IrvingYwbcestQVYWRRARUH9075-85-87 05:40:00 Test Item Value Reference Range Interpretation Comments Hct (test code = Hct) 19.8 42.0-54.0 [facility] IrvingAjqvfdzIOXEPUKKMC5750-06-59 05:40:00 Test Item Value Reference Range Interpretation Comments Hgb (test code = Hgb) 6.8 14.0-18.0 [facility] IrvingQrfmeaxPCXTDETPYA4470-22-43 05:40:00 Test Item Value Reference Range Interpretation Comments Platelet (test code = Platelet) 113 133-450 [facility] IrvingYdkgqnqTBUPTJXWWP8521-78-16 05:40:00 Test Item Value Reference Range Interpretation Comments MPV (test code = MPV) 9.1 7.4-10.4 [facility] IrvingKegzzcdVMCLSCTRTU4459-68-94 05:40:00 Test Item Value Reference Range Interpretation Comments WBC (test code = WBC) 3.7 3.7-10.4 [facility] IrvingYejsghqZZCBQOYJIQ9050-33-30 05:40:00 Test Item Value Reference Range Interpretation Comments RBC (test code = RBC) 2.15 4.70-6.10 [facility]2018-09-13 05:40:00 Test Item Value Reference Range Interpretation Comments Calcium Lvl (test code = Calcium Lvl) 8.3 8.5-10.5 [facility]2018-09-13 05:40:00 Test Item Value Reference Range Interpretation Comments AGAP (test code = AGAP) 13.6 10.0-20.0 [facility]2018-09-13 05:40:00 Test Item Value Reference Range Interpretation Comments eGFR (test code = eGFR) 67 [facility]2018-09-13 05:40:00 Test Item Value Reference Range Interpretation Comments CO2 (test code = CO2) 24 24-32 [facility]2018-09-13 05:40:00 Test Item Value Reference Range Interpretation Comments Chloride Lvl (test code = Chloride Lvl) 109 95-109 [facility]2018-09-13 05:40:00 Test Item Value Reference Range Interpretation Comments Potassium Lvl (test code = Potassium 4.6 3.5-5.1 Lvl) [facility]2018-09-13 05:40:00 Test Item Value Reference Range Interpretation Comments Sodium Lvl (test code = Sodium Lvl) 142 135-145 [facility]2018-09-13 05:40:00 Test Item Value Reference Range Interpretation Comments Creatinine Lvl (test code = Creatinine 1.12 0.50-1.40 Lvl) [facility]2018-09-13 05:40:00 Test Item Value Reference Range Interpretation Comments BUN (test code = BUN) 32 7-22 [facility]2018-09-13 05:40:00 Test Item Value Reference Range Interpretation Comments Glucose Lvl (test code = Glucose Lvl) 235 70-99 [facility] IrvingIzqozdvKAFENFPQDU4023-21-54 05:40:00 Test Item Value Reference Range Interpretation Comments Lymphocytes (test code = Lymphocytes) 16.2 20.0-40.0 [facility] IrvingZqttlwtMDHJEQCYOY7207-74-76 05:40:00 Test Item Value Reference Range Interpretation Comments Segs (test code = Segs) 68.4 45.0-75.0 [facility] IrvingDmzmbojIEJSJLHRYP2033-75-47 05:40:00 Test Item Value Reference Range Interpretation Comments Eosinophils (test code = 3.9 See_Comment [A utomated message] The Eosinophils) system which ge nerated this result tra nsmitted reference range : <=4.0. The reference r katie was not used to int erpret this result as normal/abnormal . [facility] IrvingKckbdtpFSKGYMQNVO1891-99-84 05:40:00 Test Item Value Reference Range Interpretation Comments Monocytes (test code = Monocytes) 10.6 2.0-12.0 [facility] IrvingUbvudpnHEMHBINHFH4545-36-50 05:40:00 Test Item Value Reference Range Interpretation Comments Lymphocytes # (test code = Lymphocytes 0.6 1.0-5.5 #) [facility] IrvingHewqeaxCEICVREQCT4179-60-46 05:40:00 Test Item Value Reference Range Interpretation Comments Basophils (test code = 0.9 See_Comment [Aut omated message] The Basophils) system which ge nerated this result tra nsmitted reference range : <=1.0. The reference r katie was not used to int erpret this result as normal/abnormal . [facility] IrvingGqafeftAFYIAMAGSS6599-00-75 05:40:00 Test Item Value Reference Range Interpretation Comments Neutrophils # (test code = Neutrophils 2.5 1.5-8.1 #) [facility] IrvingJmpzgzwPHJNWUDXVV7880-80-24 05:40:00 Test Item Value Reference Range Interpretation Comments Monocytes # (test code 0.4 See_Comment [Aut omated message] The = Monocytes #) system which generated this result tra nsmitted reference range : <=0.8. The reference r katie was not used to int erpret this result as normal/abnormal . [facility] IrvingEeynaqcTRXJGXSPRI1562-69-50 05:40:00 Test Item Value Reference Range Interpretation Comments Eosinophils # (test code 0.1 See_Comment [A utomated message] The = Eosinophils #) system whic h generated this result tra nsmitted reference range : <=0.5. The reference r katie was not used to int erpret this result as normal/abnormal . [facility] IrvingUcqbnmnBVMTQXJJWJ8705-05-28 05:40:00 Test Item Value Reference Range Interpretation Comments MCH (test code = MCH) 31.7 pg 27.0-31.0 [facility] IrvingIaynjapLOKRFGZVEN9310-95-23 05:40:00 Test Item Value Reference Range Interpretation Comments MCHC (test code = MCHC) 34.3 32.0-36.0 [facility] IrvingYcbxxduVOUMIGSMRO5642-46-47 05:40:00 Test Item Value Reference Range Interpretation Comments RDW (test code = RDW) 13.8 11.5-14.5 [facility] IrvingFcgkwxqKWAATOYCBF7352-62-04 05:40:00 Test Item Value Reference Range Interpretation Comments MCV (test code = MCV) 92.3 80.0-94.0 [facility] IrvingDtyzrzsCTGOBRVATD5157-05-06 05:40:00 Test Item Value Reference Range Interpretation Comments Hct (test code = Hct) 19.8 42.0-54.0 [facility] IrvingBlcakxnLNNTZIYQVW2708-83-81 05:40:00 Test Item Value Reference Range Interpretation Comments Hgb (test code = Hgb) 6.8 14.0-18.0 [facility] IrvingKceroqjOVFSLUAQQL2377-50-55 05:40:00 Test Item Value Reference Range Interpretation Comments Platelet (test code = Platelet) 113 133-450 [facility] IrvingRamungxDLOXZUZFEH9213-76-47 05:40:00 Test Item Value Reference Range Interpretation Comments MPV (test code = MPV) 9.1 7.4-10.4 [facility] IrvingFtohwkuXBBRALKZFY4868-04-60 05:40:00 Test Item Value Reference Range Interpretation Comments WBC (test code = WBC) 3.7 3.7-10.4 [facility] IrvingTkcxtmlYFNYNKNBUT1206-82-90 05:40:00 Test Item Value Reference Range Interpretation Comments RBC (test code = RBC) 2.15 4.70-6.10 [facility] 05:10:00 Test Item Value Reference Range Interpretation Comments Potassium Lvl (test code = Potassium 4.1 3.5-5.1 Lvl) [facility] HIOFT4593-74-82 05:10:00 Test Item Value Reference Range Interpretation Comments Creatinine Lvl (test code = Creatinine 1.59 0.50-1.40 Lvl) [facility]2018-09-12 05:10:00 Test Item Value Reference Range Interpretation Comments Sodium Lvl (test code = Sodium Lvl) 138 135-145 [facility]2018-09-12 05:10:00 Test Item Value Reference Range Interpretation Comments Glucose Lvl (test code = Glucose Lvl) 233 70-99 [facility]2018-09-12 05:10:00 Test Item Value Reference Range Interpretation Comments BUN (test code = BUN) 45 7-22 [facility] IrvingPsznrlvVSMPACIAFL1907-21-17 05:10:00 Test Item Value Reference Range Interpretation Comments Eosinophils (test code = 3.9 See_Comment [A utomated message] The Eosinophils) system which ge nerated this result tra nsmitted reference range : <=4.0. The reference r katie was not used to int erpret this result as normal/abnormal . [facility] IrvingYlrjswhPOPNUWRLSQ3952-06-41 05:10:00 Test Item Value Reference Range Interpretation Comments Segs (test code = Segs) 69.8 45.0-75.0 [facility] IrvingAqjfpylJBWVWAPZCT4589-51-10 05:10:00 Test Item Value Reference Range Interpretation Comments Monocytes (test code = Monocytes) 9.9 2.0-12.0 [facility] IrvingKgcimjfVPWJKDZJIK0648-69-99 05:10:00 Test Item Value Reference Range Interpretation Comments Lymphocytes (test code = Lymphocytes) 15.5 20.0-40.0 [facility] IrvingKdqmhjsGLUPWOGVKC9289-16-39 05:10:00 Test Item Value Reference Range Interpretation Comments Neutrophils # (test code = Neutrophils 2.6 1.5-8.1 #) [facility] IrvingTfcpkitPVAHNSJQEU8112-14-92 05:10:00 Test Item Value Reference Range Interpretation Comments Monocytes # (test code 0.4 See_Comment [Aut omated message] The = Monocytes #) system which generated this result tra nsmitted reference range : <=0.8. The reference r katie was not used to int erpret this result as normal/abnormal . [facility] IrvingAioypslSDZZPOONZZ8805-35-19 05:10:00 Test Item Value Reference Range Interpretation Comments Lymphocytes # (test code = Lymphocytes 0.6 1.0-5.5 #) [facility] IrvingPshqxosWSMZWWCNSP2455-30-78 05:10:00 Test Item Value Reference Range Interpretation Comments Basophils (test code = 0.9 See_Comment [Aut omated message] The Basophils) system which ge nerated this result tra nsmitted reference range : <=1.0. The reference r katie was not used to int erpret this result as normal/abnormal . [facility] IrvingLffxuycDOPSAWIQDN8646-04-89 05:10:00 Test Item Value Reference Range Interpretation Comments Eosinophils # (test code 0.1 See_Comment [A utomated message] The = Eosinophils #) system whic h generated this result tra nsmitted reference range : <=0.5. The reference r katie was not used to int erpret this result as normal/abnormal . [facility] IrvingKamnelmLJTKBWRQYW3541-01-51 05:10:00 Test Item Value Reference Range Interpretation Comments MPV (test code = MPV) 9.3 7.4-10.4 [facility] IrvingKbxnizfHPGDSASCHL1213-29-29 05:10:00 Test Item Value Reference Range Interpretation Comments Platelet (test code = Platelet) 90 133-450 [facility] IrvingLseybjbIAAZKMTJLE2056-17-60 05:10:00 Test Item Value Reference Range Interpretation Comments RDW (test code = RDW) 13.6 11.5-14.5 [facility] IrvingHjvssasWSZHQLGQDW1685-93-79 05:10:00 Test Item Value Reference Range Interpretation Comments MCV (test code = MCV) 91.4 80.0-94.0 [facility] IrvingBvphzhgZMARVGFVWM1502-70-83 05:10:00 Test Item Value Reference Range Interpretation Comments MCHC (test code = MCHC) 34.0 32.0-36.0 [facility] IrvingKgamwbhSXVKJUALZQ2923-64-63 05:10:00 Test Item Value Reference Range Interpretation Comments MCH (test code = MCH) 31.1 pg 27.0-31.0 [facility] IrvingUpqkxraOXZWJPOWMN9240-72-14 05:10:00 Test Item Value Reference Range Interpretation Comments Hgb (test code = Hgb) 6.7 14.0-18.0 [facility] IrvingRcldtnmFZZTFMMVNV4263-96-41 05:10:00 Test Item Value Reference Range Interpretation Comments Hct (test code = Hct) 19.6 42.0-54.0 [facility] IrvingEhnxapfXCYHDZBXHO0489-92-86 05:10:00 Test Item Value Reference Range Interpretation Comments WBC (test code = WBC) 3.7 3.7-10.4 [facility] IrvingPunmxccLUYBGWDXAG2635-94-56 05:10:00 Test Item Value Reference Range Interpretation Comments RBC (test code = RBC) 2.14 4.70-6.10 [facility]2018-09-12 05:10:00 Test Item Value Reference Range Interpretation Comments eGFR (test code = eGFR) 44 [facility]2018-09-12 05:10:00 Test Item Value Reference Range Interpretation Comments Calcium Lvl (test code = Calcium Lvl) 7.7 8.5-10.5 [facility]2018-09-12 05:10:00 Test Item Value Reference Range Interpretation Comments CO2 (test code = CO2) 23 24-32 [facility]2018-09-12 05:10:00 Test Item Value Reference Range Interpretation Comments AGAP (test code = AGAP) 15.1 10.0-20.0 [facility]2018-09-12 05:10:00 Test Item Value Reference Range Interpretation Comments Chloride Lvl (test code = Chloride Lvl) 104 95-109 [facility]2018-09-12 05:10:00 Test Item Value Reference Range Interpretation Comments Potassium Lvl (test code = Potassium 4.1 3.5-5.1 Lvl) [facility]2018-09-12 05:10:00 Test Item Value Reference Range Interpretation Comments Creatinine Lvl (test code = Creatinine 1.59 0.50-1.40 Lvl) [facility]2018-09-12 05:10:00 Test Item Value Reference Range Interpretation Comments Sodium Lvl (test code = Sodium Lvl) 138 135-145 [facility]2018-09-12 05:10:00 Test Item Value Reference Range Interpretation Comments Glucose Lvl (test code = Glucose Lvl) 233 70-99 [facility]2018-09-12 05:10:00 Test Item Value Reference Range Interpretation Comments BUN (test code = BUN) 45 7-22 [facility] IrvingEhxwmbrYBAGEYHZCY5842-82-57 05:10:00 Test Item Value Reference Range Interpretation Comments Eosinophils (test code = 3.9 See_Comment [A utomated message] The Eosinophils) system which ge nerated this result tra nsmitted reference range : <=4.0. The reference r katie was not used to int erpret this result as normal/abnormal . [facility] IrvingXmcrqctJKRNKNUDLL1891-49-64 05:10:00 Test Item Value Reference Range Interpretation Comments Segs (test code = Segs) 69.8 45.0-75.0 [facility] IrvingQmzgezvCKTYSUPKUY8350-48-01 05:10:00 Test Item Value Reference Range Interpretation Comments Monocytes (test code = Monocytes) 9.9 2.0-12.0 [facility] IrvingZbprfsqURBJVLWSUT3439-15-13 05:10:00 Test Item Value Reference Range Interpretation Comments Lymphocytes (test code = Lymphocytes) 15.5 20.0-40.0 [facility] IrvingJwwxxrvRXMMNVSOCW5383-77-66 05:10:00 Test Item Value Reference Range Interpretation Comments Neutrophils # (test code = Neutrophils 2.6 1.5-8.1 #) [facility] IrvingYxnpopeCZGUXQWBPA9986-74-71 05:10:00 Test Item Value Reference Range Interpretation Comments Monocytes # (test code 0.4 See_Comment [Aut omated message] The = Monocytes #) system which generated this result tra nsmitted reference range : <=0.8. The reference r katie was not used to int erpret this result as normal/abnormal . [facility] IrvingAxyoxstEEDGPBEMOI3661-76-31 05:10:00 Test Item Value Reference Range Interpretation Comments Lymphocytes # (test code = Lymphocytes 0.6 1.0-5.5 #) [facility] IrvingRdvnjkdGJCZXXWKLS2639-54-57 05:10:00 Test Item Value Reference Range Interpretation Comments Basophils (test code = 0.9 See_Comment [Aut omated message] The Basophils) system which ge nerated this result tra nsmitted reference range : <=1.0. The reference r katie was not used to int erpret this result as normal/abnormal . [facility] IrvingWpzrsefDZGCTNLDWS2647-36-76 05:10:00 Test Item Value Reference Range Interpretation Comments Eosinophils # (test code 0.1 See_Comment [A utomated message] The = Eosinophils #) system whic h generated this result tra nsmitted reference range : <=0.5. The reference r katie was not used to int erpret this result as normal/abnormal . [facility] IrvingDrxdrtsBZWYUOQIVB0389-88-84 05:10:00 Test Item Value Reference Range Interpretation Comments MPV (test code = MPV) 9.3 7.4-10.4 [facility] IrvingSafymwiAAGHLHULTX3072-68-85 05:10:00 Test Item Value Reference Range Interpretation Comments Platelet (test code = Platelet) 90 133-450 [facility] IrvingWhdrtawBGBEWAYMFD4839-54-06 05:10:00 Test Item Value Reference Range Interpretation Comments RDW (test code = RDW) 13.6 11.5-14.5 [facility] IrvingRhybaywQSNQFNBTPA1649-77-84 05:10:00 Test Item Value Reference Range Interpretation Comments MCV (test code = MCV) 91.4 80.0-94.0 [facility] IrvingPzbrqzhGPBNJBWIXS9618-00-50 05:10:00 Test Item Value Reference Range Interpretation Comments MCHC (test code = MCHC) 34.0 32.0-36.0 [facility] IrvingXvqpzmqWIAKQMDJON3642-62-00 05:10:00 Test Item Value Reference Range Interpretation Comments MCH (test code = MCH) 31.1 pg 27.0-31.0 [facility] IrvingTtonavyBSXSZQVNKM3801-31-69 05:10:00 Test Item Value Reference Range Interpretation Comments Hgb (test code = Hgb) 6.7 14.0-18.0 [facility] IrvingQezrzsjKFMFXVNJMY2940-01-66 05:10:00 Test Item Value Reference Range Interpretation Comments Hct (test code = Hct) 19.6 42.0-54.0 [facility] IrvingPylrlxsZRCNNKNCMV8886-49-65 05:10:00 Test Item Value Reference Range Interpretation Comments WBC (test code = WBC) 3.7 3.7-10.4 [facility] IrvingGfgqxxuVKLJXOEYPM8491-93-83 05:10:00 Test Item Value Reference Range Interpretation Comments RBC (test code = RBC) 2.14 4.70-6.10 [facility]2018-09-12 05:10:00 Test Item Value Reference Range Interpretation Comments eGFR (test code = eGFR) 44 [facility]2018-09-12 05:10:00 Test Item Value Reference Range Interpretation Comments Calcium Lvl (test code = Calcium Lvl) 7.7 8.5-10.5 [facility]2018-09-12 05:10:00 Test Item Value Reference Range Interpretation Comments CO2 (test code = CO2) 23 24-32 [facility]2018-09-12 05:10:00 Test Item Value Reference Range Interpretation Comments AGAP (test code = AGAP) 15.1 10.0-20.0 [facility]2018-09-12 05:10:00 Test Item Value Reference Range Interpretation Comments Chloride Lvl (test code = Chloride Lvl) 104 95-109 [facility]2018-09-12 05:10:00 Test Item Value Reference Range Interpretation Comments Potassium Lvl (test code = Potassium 4.1 3.5-5.1 Lvl) [facility]2018-09-12 05:10:00 Test Item Value Reference Range Interpretation Comments Creatinine Lvl (test code = Creatinine 1.59 0.50-1.40 Lvl) [facility]2018-09-12 05:10:00 Test Item Value Reference Range Interpretation Comments Sodium Lvl (test code = Sodium Lvl) 138 135-145 [facility]2018-09-12 05:10:00 Test Item Value Reference Range Interpretation Comments Glucose Lvl (test code = Glucose Lvl) 233 70-99 [facility]2018-09-12 05:10:00 Test Item Value Reference Range Interpretation Comments BUN (test code = BUN) 45 7-22 [facility] IrvingMutqllaZEJZRJYAJA2494-36-02 05:10:00 Test Item Value Reference Range Interpretation Comments Eosinophils (test code = 3.9 See_Comment [A utomated message] The Eosinophils) system which ge nerated this result tra nsmitted reference range : <=4.0. The reference r katie was not used to int erpret this result as normal/abnormal . [facility] IrvingQmdahsiGQPPOSRUWX4930-50-29 05:10:00 Test Item Value Reference Range Interpretation Comments Segs (test code = Segs) 69.8 45.0-75.0 [facility] IrvingEtygogpXJNZMAZMJP5779-19-77 05:10:00 Test Item Value Reference Range Interpretation Comments Monocytes (test code = Monocytes) 9.9 2.0-12.0 [facility] IrvingIzfeiadODETQULRGX2405-57-30 05:10:00 Test Item Value Reference Range Interpretation Comments Lymphocytes (test code = Lymphocytes) 15.5 20.0-40.0 [facility] IrvingJuepduiWEOBOLBZDJ6386-14-47 05:10:00 Test Item Value Reference Range Interpretation Comments Neutrophils # (test code = Neutrophils 2.6 1.5-8.1 #) [facility] IrvingYhovhrmQRCAANBREX5821-06-04 05:10:00 Test Item Value Reference Range Interpretation Comments Monocytes # (test code 0.4 See_Comment [Aut omated message] The = Monocytes #) system which generated this result tra nsmitted reference range : <=0.8. The reference r katie was not used to int erpret this result as normal/abnormal . [facility] IrvingIqcdmxyCLNXSTJBAT1836-01-94 05:10:00 Test Item Value Reference Range Interpretation Comments Lymphocytes # (test code = Lymphocytes 0.6 1.0-5.5 #) [facility] IrvingJaollqjPKFOXFWMOI2374-30-54 05:10:00 Test Item Value Reference Range Interpretation Comments Basophils (test code = 0.9 See_Comment [Aut omated message] The Basophils) system which ge nerated this result tra nsmitted reference range : <=1.0. The reference r katie was not used to int erpret this result as normal/abnormal . [facility] IrvingCyjlwvqXSYEDCOVNJ0484-52-30 05:10:00 Test Item Value Reference Range Interpretation Comments Eosinophils # (test code 0.1 See_Comment [A utomated message] The = Eosinophils #) system whic h generated this result tra nsmitted reference range : <=0.5. The reference r katie was not used to int erpret this result as normal/abnormal . [facility] IrvingSagtlrzPSTAJIIYLX8022-85-15 05:10:00 Test Item Value Reference Range Interpretation Comments MPV (test code = MPV) 9.3 7.4-10.4 [facility] IrvingSxfrkgqHIZUJRZGYO4636-62-54 05:10:00 Test Item Value Reference Range Interpretation Comments Platelet (test code = Platelet) 90 133-450 [facility] IrvingIwcemdtIMIAKTSHFL4475-79-02 05:10:00 Test Item Value Reference Range Interpretation Comments RDW (test code = RDW) 13.6 11.5-14.5 [facility] IrvingVsdoxxrKDMOXTXTGV0245-68-12 05:10:00 Test Item Value Reference Range Interpretation Comments MCV (test code = MCV) 91.4 80.0-94.0 [facility] IrvingAccfyobQSZDCKEZUQ8171-21-91 05:10:00 Test Item Value Reference Range Interpretation Comments MCHC (test code = MCHC) 34.0 32.0-36.0 [facility] IrvingEqacuubKXZVOBNUZC4854-09-88 05:10:00 Test Item Value Reference Range Interpretation Comments MCH (test code = MCH) 31.1 pg 27.0-31.0 [facility] IrvingScbxwbwIYBAXXHWZY7393-19-40 05:10:00 Test Item Value Reference Range Interpretation Comments Hgb (test code = Hgb) 6.7 14.0-18.0 [facility] IrvingCaedjntBHETPXHWGK1145-57-16 05:10:00 Test Item Value Reference Range Interpretation Comments Hct (test code = Hct) 19.6 42.0-54.0 [facility] IrvingQrrygolPYKBSKFPQP8592-65-73 05:10:00 Test Item Value Reference Range Interpretation Comments WBC (test code = WBC) 3.7 3.7-10.4 [facility] IrvingBaepzykXGBEBDMKHJ2979-25-70 05:10:00 Test Item Value Reference Range Interpretation Comments RBC (test code = RBC) 2.14 4.70-6.10 [facility]2018-09-12 05:10:00 Test Item Value Reference Range Interpretation Comments eGFR (test code = eGFR) 44 [facility]2018-09-12 05:10:00 Test Item Value Reference Range Interpretation Comments Calcium Lvl (test code = Calcium Lvl) 7.7 8.5-10.5 [facility]2018-09-12 05:10:00 Test Item Value Reference Range Interpretation Comments CO2 (test code = CO2) 23 24-32 [facility]2018-09-12 05:10:00 Test Item Value Reference Range Interpretation Comments AGAP (test code = AGAP) 15.1 10.0-20.0 [facility]2018-09-12 05:10:00 Test Item Value Reference Range Interpretation Comments Chloride Lvl (test code = Chloride Lvl) 104 95-109 [facility]2018-09-12 05:10:00 Test Item Value Reference Range Interpretation Comments Potassium Lvl (test code = Potassium 4.1 3.5-5.1 Lvl) [facility]2018-09-12 05:10:00 Test Item Value Reference Range Interpretation Comments Creatinine Lvl (test code = Creatinine 1.59 0.50-1.40 Lvl) [facility]2018-09-12 05:10:00 Test Item Value Reference Range Interpretation Comments Sodium Lvl (test code = Sodium Lvl) 138 135-145 [facility]2018-09-12 05:10:00 Test Item Value Reference Range Interpretation Comments Glucose Lvl (test code = Glucose Lvl) 233 70-99 [facility]2018-09-12 05:10:00 Test Item Value Reference Range Interpretation Comments BUN (test code = BUN) 45 7-22 [facility] IrvingWeuwpjwUKHHWVAMOQ1122-96-16 05:10:00 Test Item Value Reference Range Interpretation Comments Eosinophils (test code = 3.9 See_Comment [A utomated message] The Eosinophils) system which ge nerated this result tra nsmitted reference range : <=4.0. The reference r katie was not used to int erpret this result as normal/abnormal . [facility] IrvingOcdrybhTWRYTBCCVC1602-77-14 05:10:00 Test Item Value Reference Range Interpretation Comments Segs (test code = Segs) 69.8 45.0-75.0 [facility] IrvingTjlouxkJJGFITMODV5738-61-66 05:10:00 Test Item Value Reference Range Interpretation Comments Monocytes (test code = Monocytes) 9.9 2.0-12.0 [facility] IrvingFzemjnbFXKSWCRNPV1217-35-82 05:10:00 Test Item Value Reference Range Interpretation Comments Lymphocytes (test code = Lymphocytes) 15.5 20.0-40.0 [facility] IrvingFenvhklSVJJJKQDCA8748-70-79 05:10:00 Test Item Value Reference Range Interpretation Comments Neutrophils # (test code = Neutrophils 2.6 1.5-8.1 #) [facility] IrvingOuuhdjwVHIGDXIHTM2452-79-29 05:10:00 Test Item Value Reference Range Interpretation Comments Monocytes # (test code 0.4 See_Comment [Aut omated message] The = Monocytes #) system which generated this result tra nsmitted reference range : <=0.8. The reference r katie was not used to int erpret this result as normal/abnormal . [facility] IrvingRjozjooESDGHKWDTC6959-36-98 05:10:00 Test Item Value Reference Range Interpretation Comments Lymphocytes # (test code = Lymphocytes 0.6 1.0-5.5 #) [facility] IrvingNdfzpaeWIBNKELXIK2555-79-74 05:10:00 Test Item Value Reference Range Interpretation Comments Basophils (test code = 0.9 See_Comment [Aut omated message] The Basophils) system which ge nerated this result tra nsmitted reference range : <=1.0. The reference r katie was not used to int erpret this result as normal/abnormal . [facility] IrvingKeectuzFESNUGGXFI2931-15-35 05:10:00 Test Item Value Reference Range Interpretation Comments Eosinophils # (test code 0.1 See_Comment [A utomated message] The = Eosinophils #) system whic h generated this result tra nsmitted reference range : <=0.5. The reference r katie was not used to int erpret this result as normal/abnormal . [facility] IrvingXwyhcjzTVMCUCQCGM2509-63-86 05:10:00 Test Item Value Reference Range Interpretation Comments MPV (test code = MPV) 9.3 7.4-10.4 [facility] IrvingTgaeowlHBGVPRPBJD7565-68-24 05:10:00 Test Item Value Reference Range Interpretation Comments Platelet (test code = Platelet) 90 133-450 [facility] IrvingPvcluvgCCCDGTYRLJ2608-22-21 05:10:00 Test Item Value Reference Range Interpretation Comments RDW (test code = RDW) 13.6 11.5-14.5 [facility] IrvingXcmgbypFSFECVIBTT6301-92-18 05:10:00 Test Item Value Reference Range Interpretation Comments MCV (test code = MCV) 91.4 80.0-94.0 [facility] IrvingRnfrcytPBUORMSFTF2821-03-36 05:10:00 Test Item Value Reference Range Interpretation Comments MCHC (test code = MCHC) 34.0 32.0-36.0 [facility] IrvingCmnmgjuZFJBCGSGHP3785-56-42 05:10:00 Test Item Value Reference Range Interpretation Comments MCH (test code = MCH) 31.1 pg 27.0-31.0 [facility] IrvingBbcqokvZBPTAFOOIP0780-20-61 05:10:00 Test Item Value Reference Range Interpretation Comments Hgb (test code = Hgb) 6.7 14.0-18.0 [facility] IrvingVclnfmkWOIPWXVBZS0620-55-88 05:10:00 Test Item Value Reference Range Interpretation Comments Hct (test code = Hct) 19.6 42.0-54.0 [facility] IrvingZdfurziOHRDDHJIFD7743-16-11 05:10:00 Test Item Value Reference Range Interpretation Comments WBC (test code = WBC) 3.7 3.7-10.4 [facility] IrvingNdcrdmbDCOUNVTAEL7731-94-08 05:10:00 Test Item Value Reference Range Interpretation Comments RBC (test code = RBC) 2.14 4.70-6.10 [facility]2018-09-12 05:10:00 Test Item Value Reference Range Interpretation Comments eGFR (test code = eGFR) 44 [facility]2018-09-12 05:10:00 Test Item Value Reference Range Interpretation Comments Calcium Lvl (test code = Calcium Lvl) 7.7 8.5-10.5 [facility]2018-09-12 05:10:00 Test Item Value Reference Range Interpretation Comments CO2 (test code = CO2) 23 - [facility]2018-09-12 05:10:00 Test Item Value Reference Range Interpretation Comments AGAP (test code = AGAP) 15.1 10.0-20.0 [facility]2018-09-12 05:10:00 Test Item Value Reference Range Interpretation Comments Chloride Lvl (test code = Chloride Lvl) 104 95-109 [facility]2018-09-11 06:15:00 Test Item Value Reference Range Interpretation Comments eGFR (test code = eGFR) 28 [facility]2018-09-11 06:15:00 Test Item Value Reference Range Interpretation Comments Calcium Lvl (test code = Calcium Lvl) 7.2 8.5-10.5 [facility]2018-09-11 06:15:00 Test Item Value Reference Range Interpretation Comments Sodium Lvl (test code = Sodium Lvl) 135 135-145 [facility]2018-09-11 06:15:00 Test Item Value Reference Range Interpretation Comments Potassium Lvl (test code = Potassium 4.4 3.5-5.1 Lvl) [facility]2018-09-11 06:15:00 Test Item Value Reference Range Interpretation Comments CO2 (test code = CO2) -32 [facility]2018-09-11 06:15:00 Test Item Value Reference Range Interpretation Comments Chloride Lvl (test code = Chloride Lvl) 101 95-109 [facility]2018-09-11 06:15:00 Test Item Value Reference Range Interpretation Comments AGAP (test code = AGAP) 16.4 10.0-20.0 [facility]2018-09-11 06:15:00 Test Item Value Reference Range Interpretation Comments Glucose Lvl (test code = Glucose Lvl) 288 70-99 [facility]2018-09-11 06:15:00 Test Item Value Reference Range Interpretation Comments Creatinine Lvl (test code = Creatinine 2.29 0.50-1.40 Lvl) [facility]2018-09-11 06:15:00 Test Item Value Reference Range Interpretation Comments BUN (test code = BUN) 44 7-22 [facility] IrvingXklvwcqAUDYFCNALH6635-85-03 06:15:00 Test Item Value Reference Range Interpretation Comments Eosinophils # (test code 0.1 See_Comment [A utomated message] The = Eosinophils #) system whic h generated this result tra nsmitted reference range : <=0.5. The reference r katie was not used to int erpret this result as normal/abnormal . [facility] IrvingYtfqyjjRDSIWJLCEL7138-13-17 06:15:00 Test Item Value Reference Range Interpretation Comments Lymphocytes # (test code = Lymphocytes 0.7 1.0-5.5 #) [facility] IrvingDlxuaanMGEMIETWRI0075-03-53 06:15:00 Test Item Value Reference Range Interpretation Comments Monocytes # (test code 0.4 See_Comment [Aut omated message] The = Monocytes #) system which generated this result tra nsmitted reference range : <=0.8. The reference r katie was not used to int erpret this result as normal/abnormal . [facility] IrvingXskwbgcMKKIUSLJMD9177-22-26 06:15:00 Test Item Value Reference Range Interpretation Comments Basophils (test code = 0.8 See_Comment [Aut omated message] The Basophils) system which ge nerated this result tra nsmitted reference range : <=1.0. The reference r katie was not used to int erpret this result as normal/abnormal . [facility] IrvingMnlubeaRESNVAZLNV6258-17-62 06:15:00 Test Item Value Reference Range Interpretation Comments Neutrophils # (test code = Neutrophils 2.1 1.5-8.1 #) [facility] IrvingHintpuiZTCVPQSAHS8635-51-30 06:15:00 Test Item Value Reference Range Interpretation Comments Lymphocytes (test code = Lymphocytes) 20.6 20.0-40.0 [facility] IrvingXicjadoWEPZPLPAST3591-44-53 06:15:00 Test Item Value Reference Range Interpretation Comments Segs (test code = Segs) 63.3 45.0-75.0 [facility] IrvingApyivfcDEKKNEOQOZ4495-08-13 06:15:00 Test Item Value Reference Range Interpretation Comments Monocytes (test code = Monocytes) 11.2 2.0-12.0 [facility] IrvingNolxpmlFYZGIYZPEC7574-37-65 06:15:00 Test Item Value Reference Range Interpretation Comments Eosinophils (test code = 4.1 See_Comment [A utomated message] The Eosinophils) system which ge nerated this result tra nsmitted reference range : <=4.0. The reference r katie was not used to int erpret this result as normal/abnormal . [facility] IrvingMsiornnXEZMCFVPXX6202-56-42 06:15:00 Test Item Value Reference Range Interpretation Comments RBC (test code = RBC) 2.19 4.70-6.10 [facility] IrvingXocqvwrZPNZZYTZRU6365-00-89 06:15:00 Test Item Value Reference Range Interpretation Comments Hgb (test code = Hgb) 6.7 14.0-18.0 [facility] IrvingRufdnpfCQOKJGKFOV9510-79-07 06:15:00 Test Item Value Reference Range Interpretation Comments Hct (test code = Hct) 19.9 42.0-54.0 [facility] IrvingEauipomCZTCEYVMTP5371-89-84 06:15:00 Test Item Value Reference Range Interpretation Comments WBC (test code = WBC) 3.3 3.7-10.4 [facility] IrvingStpcpbzOZYSINCMVZ4834-26-04 06:15:00 Test Item Value Reference Range Interpretation Comments MCV (test code = MCV) 90.9 80.0-94.0 [facility] IrvingRajwsltKINNTPIVTZ7331-41-86 06:15:00 Test Item Value Reference Range Interpretation Comments MCH (test code = MCH) 30.8 pg 27.0-31.0 [facility] IrvingAqplabiXUQUBRXNVS3743-57-41 06:15:00 Test Item Value Reference Range Interpretation Comments MCHC (test code = MCHC) 33.9 32.0-36.0 [facility] IrvingXhkezbdZAELFJQATC8258-34-37 06:15:00 Test Item Value Reference Range Interpretation Comments RDW (test code = RDW) 13.6 11.5-14.5 [facility] IrvingMddfzlnXTAZAFQUSJ5530-03-62 06:15:00 Test Item Value Reference Range Interpretation Comments Platelet (test code = Platelet) 74 133-450 [facility] IrvingWdjuzzjQREIAAGHNW2441-55-87 06:15:00 Test Item Value Reference Range Interpretation Comments MPV (test code = MPV) 9.0 7.4-10.4 [facility]2018-09-11 06:15:00 Test Item Value Reference Range Interpretation Comments Ca Norm WB (test code = Ca Norm WB) 0.95 1.05-1.25 [facility]2018-09-11 06:15:00 Test Item Value Reference Range Interpretation Comments Ca Ion WB (test code = Ca Ion WB) 0.95 1.05-1.25 [facility]2018-09-11 06:15:00 Test Item Value Reference Range Interpretation Comments eGFR (test code = eGFR) 28 [facility]2018-09-11 06:15:00 Test Item Value Reference Range Interpretation Comments Calcium Lvl (test code = Calcium Lvl) 7.2 8.5-10.5 [facility]2018-09-11 06:15:00 Test Item Value Reference Range Interpretation Comments Sodium Lvl (test code = Sodium Lvl) 135 135-145 [facility]2018-09-11 06:15:00 Test Item Value Reference Range Interpretation Comments Potassium Lvl (test code = Potassium 4.4 3.5-5.1 Lvl) [facility]2018-09-11 06:15:00 Test Item Value Reference Range Interpretation Comments CO2 (test code = CO2) 22 24-32 [facility]2018-09-11 06:15:00 Test Item Value Reference Range Interpretation Comments Chloride Lvl (test code = Chloride Lvl) 101 95-109 [facility]2018-09-11 06:15:00 Test Item Value Reference Range Interpretation Comments AGAP (test code = AGAP) 16.4 10.0-20.0 [facility]2018-09-11 06:15:00 Test Item Value Reference Range Interpretation Comments Glucose Lvl (test code = Glucose Lvl) 288 70-99 [facility]2018-09-11 06:15:00 Test Item Value Reference Range Interpretation Comments Creatinine Lvl (test code = Creatinine 2.29 0.50-1.40 Lvl) [facility]2018-09-11 06:15:00 Test Item Value Reference Range Interpretation Comments BUN (test code = BUN) 44 7-22 [facility] IrvingOybktvxWKBJFFPEOB5109-22-52 06:15:00 Test Item Value Reference Range Interpretation Comments Eosinophils # (test code 0.1 See_Comment [A utomated message] The = Eosinophils #) system whic h generated this result tra nsmitted reference range : <=0.5. The reference r katie was not used to int erpret this result as normal/abnormal . [facility] IrvingLpfofepHOFFIHGZKM9465-75-47 06:15:00 Test Item Value Reference Range Interpretation Comments Lymphocytes # (test code = Lymphocytes 0.7 1.0-5.5 #) [facility] IrvingZnlptqyYWDUHFOFDW5636-16-85 06:15:00 Test Item Value Reference Range Interpretation Comments Monocytes # (test code 0.4 See_Comment [Aut omated message] The = Monocytes #) system which generated this result tra nsmitted reference range : <=0.8. The reference r katie was not used to int erpret this result as normal/abnormal . [facility] IrvingMtlaihcAPKMNTLNBQ7670-90-18 06:15:00 Test Item Value Reference Range Interpretation Comments Basophils (test code = 0.8 See_Comment [Aut omated message] The Basophils) system which ge nerated this result tra nsmitted reference range : <=1.0. The reference r katie was not used to int erpret this result as normal/abnormal . [facility] IrvingFfgurpsAAUXJOKWZV3131-27-30 06:15:00 Test Item Value Reference Range Interpretation Comments Neutrophils # (test code = Neutrophils 2.1 1.5-8.1 #) [facility] IrvingJugikczIDANMQJIQI9419-63-66 06:15:00 Test Item Value Reference Range Interpretation Comments Lymphocytes (test code = Lymphocytes) 20.6 20.0-40.0 [facility] IrvingVhqkkkqBWZIOVZVPO6486-83-93 06:15:00 Test Item Value Reference Range Interpretation Comments Segs (test code = Segs) 63.3 45.0-75.0 [facility] IrvingHekubfiVVUREJGBFR6157-30-13 06:15:00 Test Item Value Reference Range Interpretation Comments Monocytes (test code = Monocytes) 11.2 2.0-12.0 [facility] IrvingRyofufsYSRXILTGRT9151-07-60 06:15:00 Test Item Value Reference Range Interpretation Comments Eosinophils (test code = 4.1 See_Comment [A utomated message] The Eosinophils) system which ge nerated this result tra nsmitted reference range : <=4.0. The reference r katie was not used to int erpret this result as normal/abnormal . [facility] IrvingFgyntmxLNJMALPIBT2907-04-41 06:15:00 Test Item Value Reference Range Interpretation Comments RBC (test code = RBC) 2.19 4.70-6.10 [facility] IrvingFiftvkkABVWPVSGOT6058-82-47 06:15:00 Test Item Value Reference Range Interpretation Comments Hgb (test code = Hgb) 6.7 14.0-18.0 [facility] IrvingAxmjyhdTTIYFLQEQH0926-82-03 06:15:00 Test Item Value Reference Range Interpretation Comments Hct (test code = Hct) 19.9 42.0-54.0 [facility] IrvingZqzdcqmKSMMEBACKB1662-28-53 06:15:00 Test Item Value Reference Range Interpretation Comments WBC (test code = WBC) 3.3 3.7-10.4 [facility] IrvingVhpqnblUIYDTHKYYO2118-84-66 06:15:00 Test Item Value Reference Range Interpretation Comments MCV (test code = MCV) 90.9 80.0-94.0 [facility] IrvingAltgcmjPLQBSWKPKZ7314-15-96 06:15:00 Test Item Value Reference Range Interpretation Comments MCH (test code = MCH) 30.8 pg 27.0-31.0 [facility] IrvingDfldzbkHNRHASWXKR5993-62-58 06:15:00 Test Item Value Reference Range Interpretation Comments MCHC (test code = MCHC) 33.9 32.0-36.0 [facility] IrvingGkgrcioNGLAEGTXFC9556-65-33 06:15:00 Test Item Value Reference Range Interpretation Comments RDW (test code = RDW) 13.6 11.5-14.5 [facility] IrvingMdkzfykTCSWNWVXGO3525-73-09 06:15:00 Test Item Value Reference Range Interpretation Comments Platelet (test code = Platelet) 74 133-450 [facility] IrvingMulaayrVHRYVDOCXH6985-87-27 06:15:00 Test Item Value Reference Range Interpretation Comments MPV (test code = MPV) 9.0 7.4-10.4 [facility] AMMDTGA7831-79-60 06:15:00 Test Item Value Reference Range Interpretation Comments Ca Norm WB (test code = Ca Norm WB) 0.95 [facility].05-1.25 [facility] BRMDJRH7035-14-34 06:15:00 Test Item Value Reference Range Interpretation Comments Ca Ion WB (test code = Ca Ion WB) 0.95 1.05-1.25 [facility]2018-09-11 06:15:00 Test Item Value Reference Range Interpretation Comments eGFR (test code = eGFR) 28 [facility]2018-09-11 06:15:00 Test Item Value Reference Range Interpretation Comments Calcium Lvl (test code = Calcium Lvl) 7.2 8.5-10.5 [facility]2018-09-11 06:15:00 Test Item Value Reference Range Interpretation Comments Sodium Lvl (test code = Sodium Lvl) 135 135-145 [facility]2018-09-11 06:15:00 Test Item Value Reference Range Interpretation Comments Potassium Lvl (test code = Potassium 4.4 3.5-5.1 Lvl) [facility]2018-09-11 06:15:00 Test Item Value Reference Range Interpretation Comments CO2 (test code = CO2) 22 24-32 [facility]2018-09-11 06:15:00 Test Item Value Reference Range Interpretation Comments Chloride Lvl (test code = Chloride Lvl) 101 95-109 [facility]2018-09-11 06:15:00 Test Item Value Reference Range Interpretation Comments AGAP (test code = AGAP) 16.4 10.0-20.0 [facility]2018-09-11 06:15:00 Test Item Value Reference Range Interpretation Comments Glucose Lvl (test code = Glucose Lvl) 288 70-99 [facility]2018-09-11 06:15:00 Test Item Value Reference Range Interpretation Comments Creatinine Lvl (test code = Creatinine 2.29 0.50-1.40 Lvl) [facility] [facility]2018-09-11 06:15:00 Test Item Value Reference Range Interpretation Comments BUN (test code = BUN) 44 7-22 [facility]XSTXWQQBHE2619-81-08 06:15:00 Test Item Value Reference Range Interpretation Comments Eosinophils # (test code 0.1 See_Comment [A utomated message] The = Eosinophils #) system whic h generated this result tra nsmitted reference range : <=0.5. The reference r katie was not used to int erpret this result as normal/abnormal . [facility] IrvingWopdylpGWIKVDSTCH6447-58-05 06:15:00 Test Item Value Reference Range Interpretation Comments Lymphocytes # (test code = Lymphocytes 0.7 1.0-5.5 #) [facility] IrvingDqnxkztQHAESDAFAR7527-71-11 06:15:00 Test Item Value Reference Range Interpretation Comments Monocytes # (test code 0.4 See_Comment [Aut omated message] The = Monocytes #) system which generated this result tra nsmitted reference range : <=0.8. The reference r katie was not used to int erpret this result as normal/abnormal . [facility] IrvingXrusaywDWJIFKZRZS8612-85-80 06:15:00 Test Item Value Reference Range Interpretation Comments Basophils (test code = 0.8 See_Comment [Aut omated message] The Basophils) system which ge nerated this result tra nsmitted reference range : <=1.0. The reference r katie was not used to int erpret this result as normal/abnormal . [facility] IrvingTlxjjfbSCETQEQYDH2578-24-70 06:15:00 Test Item Value Reference Range Interpretation Comments Neutrophils # (test code = Neutrophils 2.1 1.5-8.1 #) [facility] IrvingHvxmqplJFZAPZMFZF2068-53-39 06:15:00 Test Item Value Reference Range Interpretation Comments Lymphocytes (test code = Lymphocytes) 20.6 20.0-40.0 [facility] IrvingFmgucqqRHMGPJTPIQ4130-71-84 06:15:00 Test Item Value Reference Range Interpretation Comments Segs (test code = Segs) 63.3 45.0-75.0 [facility] IrvingMgibtjqHFNFAVYTDY2960-46-49 06:15:00 Test Item Value Reference Range Interpretation Comments Monocytes (test code = Monocytes) 11.2 2.0-12.0 [facility] IrvingKbddfwdKYLKYUDVPD2231-36-18 06:15:00 Test Item Value Reference Range Interpretation Comments Eosinophils (test code = 4.1 See_Comment [A utomated message] The Eosinophils) system which ge nerated this result tra nsmitted reference range : <=4.0. The reference r katie was not used to int erpret this result as normal/abnormal . [facility] IrvingLyyoxilTTYLMPGFUL7862-77-14 06:15:00 Test Item Value Reference Range Interpretation Comments RBC (test code = RBC) 2.19 4.70-6.10 [facility] IrvingNmlbaziEPKHIJBKSL6291-07-62 06:15:00 Test Item Value Reference Range Interpretation Comments Hgb (test code = Hgb) 6.7 14.0-18.0 [facility] IrvingAiespraQUPKUSBXGX7572-93-78 06:15:00 Test Item Value Reference Range Interpretation Comments Hct (test code = Hct) 19.9 42.0-54.0 [facility] IrvingIvvvokdQPINKTBJLI0231-65-98 06:15:00 Test Item Value Reference Range Interpretation Comments WBC (test code = WBC) 3.3 3.7-10.4 [facility] IrvingCrsziapVYTHFAZETG6580-94-28 06:15:00 Test Item Value Reference Range Interpretation Comments MCV (test code = MCV) 90.9 80.0-94.0 [facility] IrvingOauirvlYANORUTFEG9070-27-89 06:15:00 Test Item Value Reference Range Interpretation Comments MCH (test code = MCH) 30.8 pg 27.0-31.0 [facility] IrvingNjeqiudBPGGMGYNZN5828-31-01 06:15:00 Test Item Value Reference Range Interpretation Comments MCHC (test code = MCHC) 33.9 32.0-36.0 [facility] IrvingElulwrpJSIDKMDUDN6127-69-56 06:15:00 Test Item Value Reference Range Interpretation Comments RDW (test code = RDW) 13.6 11.5-14.5 [facility] IrvingJrirbhgJBUFKIANHL4096-92-91 06:15:00 Test Item Value Reference Range Interpretation Comments Platelet (test code = Platelet) 74 133-450 [facility] IrvingQwgiknqQYPGPIZNGV1445-47-05 06:15:00 Test Item Value Reference Range Interpretation Comments MPV (test code = MPV) 9.0 7.4-10.4 [facility] FDBHBHY1110-18-35 06:15:00 Test Item Value Reference Range Interpretation Comments Ca Norm WB (test code = Ca Norm WB) 0.95 1.05-1.25 [facility] [id number] 06:15:00 Test Item Value Reference Range Interpretation Comments Ca Ion WB (test code = Ca Ion WB) 0.95 1.05-1.25 [facility] HospitalCHEM ANRIE2612-20-87 06:15:00 Test Item Value Reference Range Interpretation Comments eGFR (test code = eGFR) 28 [facility]CHE[facility] PHZIB2068-27-20 06:15:00 Test Item Value Reference Range Interpretation Comments Calcium Lvl (test code = Calcium Lvl) 7.2 8.5-10.5 [facility]2018-09-11 06:15:00 Test Item Value Reference Range Interpretation Comments Sodium Lvl (test code = Sodium Lvl) 135 135-145 [facility]2018-09-11 06:15:00 Test Item Value Reference Range Interpretation Comments Potassium Lvl (test code = Potassium 4.4 3.5-5.1 Lvl) [facility]2018-09-11 06:15:00 Test Item Value Reference Range Interpretation Comments CO2 (test code = CO2) 22 24-32 [facility]2018-09-11 06:15:00 Test Item Value Reference Range Interpretation Comments Chloride Lvl (test code = Chloride Lvl) 101 95-109 [facility]2018-09-11 06:15:00 Test Item Value Reference Range Interpretation Comments AGAP (test code = AGAP) 16.4 10.0-20.0 [facility]2018-09-11 06:15:00 Test Item Value Reference Range Interpretation Comments Glucose Lvl (test code = Glucose Lvl) 288 70-99 [facility]2018-09-11 06:15:00 Test Item Value Reference Range Interpretation Comments Creatinine Lvl (test code = Creatinine 2.29 0.50-1.40 Lvl) [facility]2018-09-11 06:15:00 Test Item Value Reference Range Interpretation Comments BUN (test code = BUN) 44 7-22 [facility] IrvingZlhlqocALKHEBNGIP5684-98-79 06:15:00 Test Item Value Reference Range Interpretation Comments Eosinophils # (test code 0.1 See_Comment [A utomated message] The = Eosinophils #) system whic h generated this result tra nsmitted reference range : <=0.5. The reference r katie was not used to int erpret this result as normal/abnormal . [facility] IrvingEcebtbnSPMOCRPQKG9577-63-32 06:15:00 Test Item Value Reference Range Interpretation Comments Lymphocytes # (test code = Lymphocytes 0.7 1.0-5.5 #) [facility] IrvingFlsucqeMTVBBTYGYL1618-85-85 06:15:00 Test Item Value Reference Range Interpretation Comments Monocytes # (test code 0.4 See_Comment [Aut omated message] The = Monocytes #) system which generated this result tra nsmitted reference range : <=0.8. The reference r katie was not used to int erpret this result as normal/abnormal . [facility] IrvingVroyozrICZIFKMMYL2171-59-79 06:15:00 Test Item Value Reference Range Interpretation Comments Basophils (test code = 0.8 See_Comment [Aut omated message] The Basophils) system which ge nerated this result tra nsmitted reference range : <=1.0. The reference r katie was not used to int erpret this result as normal/abnormal . [facility] IrvingFjxkjogWQSCBGACKE7564-18-09 06:15:00 Test Item Value Reference Range Interpretation Comments Neutrophils # (test code = Neutrophils 2.1 1.5-8.1 #) [facility] IrvingOiskgorSYSVDKMPQY5331-46-83 06:15:00 Test Item Value Reference Range Interpretation Comments Lymphocytes (test code = Lymphocytes) 20.6 20.0-40.0 [facility] IrvingHwreeqpTGVORTOJGD2421-79-33 06:15:00 Test Item Value Reference Range Interpretation Comments Segs (test code = Segs) 63.3 45.0-75.0 [facility] IrvingIvcqnntXZTFZGFUKX3816-90-71 06:15:00 Test Item Value Reference Range Interpretation Comments Monocytes (test code = Monocytes) 11.2 2.0-12.0 [facility] IrvingEpuvmhcBKBTHNLCYB4678-02-64 06:15:00 Test Item Value Reference Range Interpretation Comments Eosinophils (test code = 4.1 See_Comment [A utomated message] The Eosinophils) system which ge nerated this result tra nsmitted reference range : <=4.0. The reference r katie was not used to int erpret this result as normal/abnormal . [facility] IrvingAbnbrfqZPDZQNTRBO0801-44-55 06:15:00 Test Item Value Reference Range Interpretation Comments RBC (test code = RBC) 2.19 4.70-6.10 [facility] IrvingVmtewdfWGZPJXRHVC9772-93-94 06:15:00 Test Item Value Reference Range Interpretation Comments Hgb (test code = Hgb) 6.7 14.0-18.0 [facility] IrvingMjvdvrrIYCVIXMKEN8479-90-80 06:15:00 Test Item Value Reference Range Interpretation Comments Hct (test code = Hct) 19.9 42.0-54.0 [facility] IrvingIevwwiuPXEQDKPWVB4588-77-92 06:15:00 Test Item Value Reference Range Interpretation Comments WBC (test code = WBC) 3.3 3.7-10.4 [facility] IrvingKdflgojTSQOTLJSNV9556-36-41 06:15:00 Test Item Value Reference Range Interpretation Comments MCV (test code = MCV) 90.9 80.0-94.0 [facility] IrvingLsqsvorHSVYCDKJKE3151-56-51 06:15:00 Test Item Value Reference Range Interpretation Comments MCH (test code = MCH) 30.8 pg 27.0-31.0 [facility] IrvingUeavfugZWIRAAGBUZ4783-53-06 06:15:00 Test Item Value Reference Range Interpretation Comments MCHC (test code = MCHC) 33.9 32.0-36.0 [facility] IrvingLhfdqksOAAVYYDEBD4357-49-93 06:15:00 Test Item Value Reference Range Interpretation Comments RDW (test code = RDW) 13.6 11.5-14.5 [facility] IrvingFgdqpygBGKQTERAPH3090-58-19 06:15:00 Test Item Value Reference Range Interpretation Comments Platelet (test code = Platelet) 74 133-450 [facility] IrvingTzzvqhkMPXGAFXFUQ9467-79-22 06:15:00 Test Item Value Reference Range Interpretation Comments MPV (test code = MPV) 9.0 7.4-10.4 [facility]PAR[facility]ID MCBGDHB1013-90-41 06:15:00 Test Item Value Reference Range Interpretation Comments Ca Norm WB (test code = Ca Norm WB) 0.95 1.05-1.25 [facility] [id number] 06:15:00 Test Item Value Reference Range Interpretation Comments Ca Ion WB (test code = Ca Ion WB) 0.95 1.05-1.25 [facility]2018-09-10 21:30:00 Test Item Value Reference Range Interpretation Comments Phosphorus (test code = Phosphorus) 5.9 2.5-4.5 [facility]2018-09-10 21:30:00 Test Item Value Reference Range Interpretation Comments Magnesium Lvl (test code = Magnesium 1.7 1.8-2.4 Lvl) [facility]2018-09-10 21:30:00 Test Item Value Reference Range Interpretation Comments Phosphorus (test code = Phosphorus) 5.9 2.5-4.5 [facility]2018-09-10 21:30:00 Test Item Value Reference Range Interpretation Comments Magnesium Lvl (test code = Magnesium 1.7 1.8-2.4 Lvl) [facility] [id number] 21:30:00 Test Item Value Reference Range Interpretation Comments Phosphorus (test code = Phosphorus) 5.9 2.5-4.5 [facility]2018-09-10 21:30:00 Test Item Value Reference Range Interpretation Comments Magnesium Lvl (test code = Magnesium 1.7 1.8-2.4 Lvl) [facility] [id number] 21:30:00 Test Item Value Reference Range Interpretation Comments Phosphorus (test code = Phosphorus) 5.9 2.5-4.5 [facility] [id number] 21:30:00 Test Item Value Reference Range Interpretation Comments Magnesium Lvl (test code = Magnesium 1.7 1.8-2.4 Lvl) [facility] [id number] 09:25:00 Test Item Value Reference Range Interpretation Comments Total CK (test code = Total CK) 661 12-191 [facility] [id number] 09:25:00 Test Item Value Reference Range Interpretation Comments Phosphorus (test code = Phosphorus) 6.3 2.5-4.5 [facility] [id number] 09:25:00 Test Item Value Reference Range Interpretation Comments Magnesium Lvl (test code = Magnesium 1.6 1.8-2.4 Lvl) [facility] ClubAzqgwjlRAXRTEEHN8338-20-81 09:25:00 Test Item Value Reference Range Interpretation Comments Myoglobin (test code = Myoglobin) 0296 25-40 [facility] HospitalViyet TPYBKZE7322-27-06 09:25:00 Test Item Value Reference Range Interpretation Comments Total CK (test code = Total CK) 661 12-191 [facility] CenterAuthern[facility] [id number] 09:25:00 Test Item Value Reference Range Interpretation Comments Phosphorus (test code = Phosphorus) 6.3 2.5-4.5 [facility] [id number] 09:25:00 Test Item Value Reference Range Interpretation Comments Magnesium Lvl (test code = Magnesium 1.6 1.8-2.4 Lvl) [facility] ClubWwrujikFEDGWOQJI1295-53-21 09:25:00 Test Item Value Reference Range Interpretation Comments Myoglobin (test code = Myoglobin) 2375 [facility] NHATIIK4593-64-03 09:25:00 Test Item Value Reference Range Interpretation Comments Total CK (test code = Total CK) 661 12191 [facility]2018-09-10 09:25:00 Test Item Value Reference Range Interpretation Comments Phosphorus (test code = Phosphorus) 6.3 2.5-4.5 [facility]2018-09-10 09:25:00 Test Item Value Reference Range Interpretation Comments Magnesium Lvl (test code = Magnesium 1.6 1.8-2.4 Lvl) [facility] ClubDmltwsjGJPWMOHUT5358-27-25 09:25:00 Test Item Value Reference Range Interpretation Comments Myoglobin (test code = Myoglobin) 2375 [facility] [id number] 09:25:00 Test Item Value Reference Range Interpretation Comments Total CK (test code = Total CK) 661 191 [facility]2018-09-10 09:25:00 Test Item Value Reference Range Interpretation Comments Phosphorus (test code = Phosphorus) 6.3 2.5-4.5 [facility]2018-09-10 09:25:00 Test Item Value Reference Range Interpretation Comments Magnesium Lvl (test code = Magnesium 1.6 1.8-2.4 Lvl) [facility] ClubCulwcniFUNMUMALM8625-31-17 09:25:00 Test Item Value Reference Range Interpretation Comments Myoglobin (test code = Myoglobin) 2375 [facility] [id number] 04:41:00 Test Item Value Reference Range Interpretation Comments Phosphorus (test code = Phosphorus) 6.3 2.5-4.5 [facility]2018-09-10 04:41:00 Test Item Value Reference Range Interpretation Comments Magnesium Lvl (test code = Magnesium 1.6 1.8-2.4 Lvl) [facility]2018-09-10 04:41:00 Test Item Value Reference Range Interpretation Comments Lactic Acid Lvl (test code = Lactic 2.0 0.5-2.2 Acid Lvl) [facility]2018-09-10 04:41:00 Test Item Value Reference Range Interpretation Comments Ketone Quantitative (test code = Ketone 0.11 Quantitative) [facility] IrvingIbmrafjVSHEJKYJXX7731-86-12 04:41:00 Test Item Value Reference Range Interpretation Comments Estimated % Lysis Rapid 0.4 See_Comment [Au tomated message] The (test code = Estimated syste m which generated % Lysis Rapid) this result t ransmitted reference range : <=7.5. The reference r katie was not used to int erpret this result as normal/abnormal . [facility] IrvingBefpuvpWQJLATCYIX6662-08-05 04:41:00 Test Item Value Reference Range Interpretation Comments Max Amplitude Rapid (test code = Max 65 mm 52-71 Amplitude Rapid) [facility] IrvingGgqwoczBKLGUZQHOM4767-03-01 04:41:00 Test Item Value Reference Range Interpretation Comments G-value Rapid (test code = G-value 9.4 5.0-11.6 Rapid) [facility] IrvingRjnbvbvGRQDNHVPIK7938-48-20 04:41:00 Test Item Value Reference Range Interpretation Comments ACT (TEG) Rapid (test code = ACT (TEG) 105 s 86-118 Rapid) [facility] IrvingUfoceugZVDMEOIWBD6459-28-53 04:41:00 Test Item Value Reference Range Interpretation Comments Split Point Rapid (test code = Split 0.4 min Point Rapid) [facility] IrvingDslkdvhBVABHAMEOX6256-13-66 04:41:00 Test Item Value Reference Range Interpretation Comments R-time Rapid (test code = R-time 0.6 min 0.4-0.7 Rapid) [facility] IrvingVrgigxxTLHHKNWFOU4157-77-17 04:41:00 Test Item Value Reference Range Interpretation Comments K-time Rapid (test code = K-time 1.0 min 0.6-2.3 Rapid) [facility] IrvingEstxlfuUSKBAAMLIP7283-85-07 04:41:00 Test Item Value Reference Range Interpretation Comments Angle Rapid (test code = Angle 76 degrees 64-80 Rapid) [facility]2018-09-10 04:41:00 Test Item Value Reference Range Interpretation Comments Ca Norm WB (test code = Ca Norm WB) 0.96 1.05-1.25 [facility]2018-09-10 04:41:00 Test Item Value Reference Range Interpretation Comments Ca Ion WB (test code = Ca Ion WB) 0.99 1.05-1.25 [facility] AND [id number] 04:41:00 Test Item Value Reference Range Interpretation Comments UA Sq Epi (test code = UA Sq Epi) None Seen [facility] AND [id number] 04:41:00 Test Item Value Reference Range Interpretation Comments UA Urobilinogen (test code = UA 4.0 0.1-1.0 Urobilinogen) [facility] AND [id number] 04:41:00 Test Item Value Reference Range Interpretation Comments UA Nitrite (test code Negative (07/15/18 11:41 = UA Nitrite) PM) [facility] AND [id number] 04:41:00 Test Item Value Reference Range Interpretation Comments UA Bili (test code = Negative *NA*(07/15/18 UA Bili) 11:41 PM) [facility] AND [id number] 04:41:00 Test Item Value Reference Range Interpretation Comments UA Blood (test code = Large *ABN*(07/15/18 UA Blood) 11:41 PM) [facility] AND [id number] 04:41:00 Test Item Value Reference Range Interpretation Comments UA Glucose (test code = UA Negative mg/dL Glucose) [facility] AND [id number] 04:41:00 Test Item Value Reference Range Interpretation Comments UA Ketones (test code = UA Trace mg/dL Ketones) [facility] AND [id number] 04:41:00 Test Item Value Reference Range Interpretation Comments UA Protein (test code = UA Protein) 30 mg/dL [facility] AND [id number] 04:41:00 Test Item Value Reference Range Interpretation Comments UA pH (test code = UA pH) 5.0 1 5.0-8.0 [facility] AND [id number] 04:41:00 Test Item Value Reference Range Interpretation Comments UA Leuk Est (test code Large *ABN*(07/15/18 = UA Leuk Est) 11:41 PM) [facility] AND [id number] 04:41:00 Test Item Value Reference Range Interpretation Comments UA WBC (test code = 44 See_Comment [Automa didi message] The UA WBC) system which ge nerated this result transmit didi reference range : <=5. The reference range was not used to interpr et this result as james l/abnormal. [facility] [id number] 04:41:00 Test Item Value Reference Range Interpretation Comments UA RBC (test code = 154 See_Comment [Automa didi message] The UA RBC) system which ge nerated this result transmit didi reference range : <=2. The reference range was not used to interpr et this result as james l/abnormal. [facility] [id number] 04:41:00 Test Item Value Reference Range Interpretation Comments UA Bacteria (test code = UA Occasional /HPF Bacteria) [facility] [id number] 04:41:00 Test Item Value Reference Range Interpretation Comments UA Hyal Cast (test 58 See_Comment [Automat ed message] The code = UA Hyal Cast) system which generated this result transmit didi reference range : <=2. The reference range was not used to interpr et this result as james l/abnormal. [facility] [id number] 04:41:00 Test Item Value Reference Range Interpretation Comments UA Spec Grav (test code = UA Spec 1.031 1 Grav) [facility] AND [id number] 04:41:00 Test Item Value Reference Range Interpretation Comments UA Turbidity (test code Slight *ABN*(07/15/18 = UA Turbidity) 11:41 PM) [facility] AND [id number] 04:41:00 Test Item Value Reference Range Interpretation Comments UA Color (test code = Yellow *NA*(07/15/18 UA Color) 11:41 PM) [facility] [id number] 04:41:00 Test Item Value Reference Range Interpretation Comments U Sodium (test code = U Sodium) 29 [facility] [id number] 04:41:00 Test Item Value Reference Range Interpretation Comments U Creatinine (test code = U 191.00 Creatinine) [facility] [id number] 04:41:00 Test Item Value Reference Range Interpretation Comments Culture: Urine (test code = No Growth Culture: Urine) [facility]annCHEM [id number] 04:41:00 Test Item Value Reference Range Interpretation Comments Phosphorus (test code = Phosphorus) 6.3 2.5-4.5 [facility]annCHEM [id number] 04:41:00 Test Item Value Reference Range Interpretation Comments Magnesium Lvl (test code = Magnesium 1.6 1.8-2.4 Lvl) [facility]2018-09-10 04:41:00 Test Item Value Reference Range Interpretation Comments Lactic Acid Lvl (test code = Lactic 2.0 0.5-2.2 Acid Lvl) [facility]2018-09-10 04:41:00 Test Item Value Reference Range Interpretation Comments Ketone Quantitative (test code = Ketone 0.11 Quantitative) [facility] IrvingGbdzljkXZAHKWUCYS1553-25-67 04:41:00 Test Item Value Reference Range Interpretation Comments Estimated % Lysis Rapid 0.4 See_Comment [Au tomated message] The (test code = Estimated syste m which generated % Lysis Rapid) this result t ransmitted reference range : <=7.5. The reference r katie was not used to int erpret this result as normal/abnormal . [facility] [id number] 04:41:00 Test Item Value Reference Range Interpretation Comments Max Amplitude Rapid (test code = Max 65 mm 52-71 Amplitude Rapid) [facility] IrvingOvrfmupERJXRBWSSL7691-09-62 04:41:00 Test Item Value Reference Range Interpretation Comments G-value Rapid (test code = G-value 9.4 5.0-11.6 Rapid) [facility] [id number] 04:41:00 Test Item Value Reference Range Interpretation Comments ACT (TEG) Rapid (test code = ACT (TEG) 105 s 86-118 Rapid) [facility] IrvingKeuivniJWZLNBYKIC2537-63-97 04:41:00 Test Item Value Reference Range Interpretation Comments Split Point Rapid (test code = Split 0.4 min Point Rapid) [facility] IrvingBbomtkjETFRCJXQTN6346-21-94 04:41:00 Test Item Value Reference Range Interpretation Comments R-time Rapid (test code = R-time 0.6 min 0.4-0.7 Rapid) [facility] [id number] 04:41:00 Test Item Value Reference Range Interpretation Comments K-time Rapid (test code = K-time 1.0 min 0.6-2.3 Rapid) [facility] [id number] 04:41:00 Test Item Value Reference Range Interpretation Comments Angle Rapid (test code = Angle 76 degrees 64-80 Rapid) [facility]annPAR[facility]YRO[facility] [id number] 04:41:00 Test Item Value Reference Range Interpretation Comments Ca Norm WB (test code = Ca Norm WB) 0.96 1.05-1.25 [facility]annPARATHYROID [id number] 04:41:00 Test Item Value Reference Range Interpretation Comments Ca Ion WB (test code = Ca Ion WB) 0.99 1.05-1.25 [facility] AND [id number] 04:41:00 Test Item Value Reference Range Interpretation Comments UA Sq Epi (test code = UA Sq Epi) None Seen [facility] AND [id number] 04:41:00 Test Item Value Reference Range Interpretation Comments UA Urobilinogen (test code = UA 4.0 0.1-1.0 Urobilinogen) [facility] AND [id number] 04:41:00 Test Item Value Reference Range Interpretation Comments UA Nitrite (test code Negative (07/15/18 11:41 = UA Nitrite) PM) [facility] AND [id number] 04:41:00 Test Item Value Reference Range Interpretation Comments UA Bili (test code = Negative *NA*(07/15/18 UA Bili) 11:41 PM) [facility] AND [id number] 04:41:00 Test Item Value Reference Range Interpretation Comments UA Blood (test code = Large *ABN*(07/15/18 UA Blood) 11:41 PM) [facility] AND [id number] 04:41:00 Test Item Value Reference Range Interpretation Comments UA Glucose (test code = UA Negative mg/dL Glucose) [facility] AND [id number] 04:41:00 Test Item Value Reference Range Interpretation Comments UA Ketones (test code = UA Trace mg/dL Ketones) [facility] AND [id number] 04:41:00 Test Item Value Reference Range Interpretation Comments UA Protein (test code = UA Protein) 30 mg/dL [facility] AND [id number] 04:41:00 Test Item Value Reference Range Interpretation Comments UA pH (test code = UA pH) 5.0 1 5.0-8.0 [facility] AND [id number] 04:41:00 Test Item Value Reference Range Interpretation Comments UA Leuk Est (test code Large *ABN*(07/15/18 = UA Leuk Est) 11:41 PM) [facility] [id number] 04:41:00 Test Item Value Reference Range Interpretation Comments UA WBC (test code = 44 See_Comment [Automa didi message] The UA WBC) system which ge nerated this result transmit didi reference range : <=5. The reference range was not used to interpr et this result as james l/abnormal. [facility] [id number] 04:41:00 Test Item Value Reference Range Interpretation Comments UA RBC (test code = 154 See_Comment [Automa didi message] The UA RBC) system which ge nerated this result transmit didi reference range : <=2. The reference range was not used to interpr et this result as james l/abnormal. [facility] [id number] 04:41:00 Test Item Value Reference Range Interpretation Comments UA Bacteria (test code = UA Occasional /HPF Bacteria) [facility] AND [id number] 04:41:00 Test Item Value Reference Range Interpretation Comments UA Hyal Cast (test 58 See_Comment [Automat ed message] The code = UA Hyal Cast) system which generated this result transmit didi reference range : <=2. The reference range was not used to interpr et this result as james l/abnormal. [facility] [id number] 04:41:00 Test Item Value Reference Range Interpretation Comments UA Spec Grav (test code = UA Spec 1.031 1 Grav) [facility] AND [id number] 04:41:00 Test Item Value Reference Range Interpretation Comments UA Turbidity (test code Slight *ABN*(07/15/18 = UA Turbidity) 11:41 PM) [facility] AND [id number] 04:41:00 Test Item Value Reference Range Interpretation Comments UA Color (test code = Yellow *NA*(07/15/18 UA Color) 11:41 PM) [facility] [id number] 04:41:00 Test Item Value Reference Range Interpretation Comments U Sodium (test code = U Sodium) 29 [facility] [id number] 04:41:00 Test Item Value Reference Range Interpretation Comments U Creatinine (test code = U 191.00 Creatinine) [facility] [id number] 04:41:00 Test Item Value Reference Range Interpretation Comments Culture: Urine (test code = No Growth Culture: Urine) [facility] [id number] 04:41:00 Test Item Value Reference Range Interpretation Comments Phosphorus (test code = Phosphorus) 6.3 2.5-4.5 [facility]2018-09-10 04:41:00 Test Item Value Reference Range Interpretation Comments Magnesium Lvl (test code = Magnesium 1.6 1.8-2.4 Lvl) [facility]2018-09-10 04:41:00 Test Item Value Reference Range Interpretation Comments Lactic Acid Lvl (test code = Lactic 2.0 0.5-2.2 Acid Lvl) [facility]2018-09-10 04:41:00 Test Item Value Reference Range Interpretation Comments Ketone Quantitative (test code = Ketone 0.11 Quantitative) [facility] [id number] 04:41:00 Test Item Value Reference Range Interpretation Comments Estimated % Lysis Rapid 0.4 See_Comment [Au tomated message] The (test code = Estimated syste m which generated % Lysis Rapid) this result t ransmitted reference range : <=7.5. The reference r katie was not used to int erpret this result as normal/abnormal . [facility] [id number] 04:41:00 Test Item Value Reference Range Interpretation Comments Max Amplitude Rapid (test code = Max 65 mm 52-71 Amplitude Rapid) [facility] [id number] 04:41:00 Test Item Value Reference Range Interpretation Comments G-value Rapid (test code = G-value 9.4 5.0-11.6 Rapid) [facility] [id number] 04:41:00 Test Item Value Reference Range Interpretation Comments ACT (TEG) Rapid (test code = ACT (TEG) 105 s 86-118 Rapid) [facility] [id number] 04:41:00 Test Item Value Reference Range Interpretation Comments Split Point Rapid (test code = Split 0.4 min Point Rapid) [facility] [id number] 04:41:00 Test Item Value Reference Range Interpretation Comments R-time Rapid (test code = R-time 0.6 min 0.4-0.7 Rapid) [facility] [id number] 04:41:00 Test Item Value Reference Range Interpretation Comments K-time Rapid (test code = K-time 1.0 min 0.6-2.3 Rapid) [facility] [id number] 04:41:00 Test Item Value Reference Range Interpretation Comments Angle Rapid (test code = Angle 76 degrees 64-80 Rapid) [facility]2018-09-10 04:41:00 Test Item Value Reference Range Interpretation Comments Ca Norm WB (test code = Ca Norm WB) 0.96 1.05-1.25 [facility]2018-09-10 04:41:00 Test Item Value Reference Range Interpretation Comments Ca Ion WB (test code = Ca Ion WB) 0.99 1.05-1.25 [facility] AND [id number] 04:41:00 Test Item Value Reference Range Interpretation Comments UA Sq Epi (test code = UA Sq Epi) None Seen [facility] AND [id number] 04:41:00 Test Item Value Reference Range Interpretation Comments UA Urobilinogen (test code = UA 4.0 0.1-1.0 Urobilinogen) [facility] AND [id number] 04:41:00 Test Item Value Reference Range Interpretation Comments UA Nitrite (test code Negative (07/15/18 11:41 = UA Nitrite) PM) [facility] AND [id number] 04:41:00 Test Item Value Reference Range Interpretation Comments UA Bili (test code = Negative *NA*(07/15/18 UA Bili) 11:41 PM) [facility] AND [id number] 04:41:00 Test Item Value Reference Range Interpretation Comments UA Blood (test code = Large *ABN*(07/15/18 UA Blood) 11:41 PM) [facility] AND [id number] 04:41:00 Test Item Value Reference Range Interpretation Comments UA Glucose (test code = UA Negative mg/dL Glucose) [facility] AND [id number] 04:41:00 Test Item Value Reference Range Interpretation Comments UA Ketones (test code = UA Trace mg/dL Ketones) [facility] AND [id number] 04:41:00 Test Item Value Reference Range Interpretation Comments UA Protein (test code = UA Protein) 30 mg/dL [facility] AND [id number] 04:41:00 Test Item Value Reference Range Interpretation Comments UA pH (test code = UA pH) 5.0 1 5.0-8.0 [facility] AND [id number] 04:41:00 Test Item Value Reference Range Interpretation Comments UA Leuk Est (test code Large *ABN*(07/15/18 = UA Leuk Est) 11:41 PM) [facility] AND [id number] 04:41:00 Test Item Value Reference Range Interpretation Comments UA WBC (test code = 44 See_Comment [Automa didi message] The UA WBC) system which ge nerated this result transmit didi reference range : <=5. The reference range was not used to interpr et this result as james l/abnormal. [facility] [id number] 04:41:00 Test Item Value Reference Range Interpretation Comments UA RBC (test code = 154 See_Comment [Automa didi message] The UA RBC) system which ge nerated this result transmit didi reference range : <=2. The reference range was not used to interpr et this result as james l/abnormal. [facility] [id number] 04:41:00 Test Item Value Reference Range Interpretation Comments UA Bacteria (test code = UA Occasional /HPF Bacteria) [facility] AND [id number] 04:41:00 Test Item Value Reference Range Interpretation Comments UA Hyal Cast (test 58 See_Comment [Automat ed message] The code = UA Hyal Cast) system which generated this result transmit didi reference range : <=2. The reference range was not used to interpr et this result as james l/abnormal. [facility] [id number] 04:41:00 Test Item Value Reference Range Interpretation Comments UA Spec Grav (test code = UA Spec 1.031 1 Grav) [facility] AND [id number] 04:41:00 Test Item Value Reference Range Interpretation Comments UA Turbidity (test code Slight *ABN*(07/15/18 = UA Turbidity) 11:41 PM) [facility] AND [id number] 04:41:00 Test Item Value Reference Range Interpretation Comments UA Color (test code = Yellow *NA*(07/15/18 UA Color) 11:41 PM) [facility] [id number] 04:41:00 Test Item Value Reference Range Interpretation Comments U Sodium (test code = U Sodium) 29 [facility] [id number] 04:41:00 Test Item Value Reference Range Interpretation Comments U Creatinine (test code = U 191.00 Creatinine) [facility] [id number] 04:41:00 Test Item Value Reference Range Interpretation Comments Culture: Urine (test code = No Growth Culture: Urine) [facility] [id number] 04:41:00 Test Item Value Reference Range Interpretation Comments Phosphorus (test code = Phosphorus) 6.3 2.5-4.5 [facility] [id number] 04:41:00 Test Item Value Reference Range Interpretation Comments Magnesium Lvl (test code = Magnesium 1.6 1.8-2.4 Lvl) [facility]2018-09-10 04:41:00 Test Item Value Reference Range Interpretation Comments Lactic Acid Lvl (test code = Lactic 2.0 0.5-2.2 Acid Lvl) [facility] [id number] 04:41:00 Test Item Value Reference Range Interpretation Comments Ketone Quantitative (test code = Ketone 0.11 Quantitative) [facility] [id number] 04:41:00 Test Item Value Reference Range Interpretation Comments Estimated % Lysis Rapid 0.4 See_Comment [Au tomated message] The (test code = Estimated syste m which generated % Lysis Rapid) this result t ransmitted reference range : <=7.5. The reference r katie was not used to int erpret this result as normal/abnormal . [facility] [id number] 04:41:00 Test Item Value Reference Range Interpretation Comments Max Amplitude Rapid (test code = Max 65 mm 52-71 Amplitude Rapid) [facility] [id number] 04:41:00 Test Item Value Reference Range Interpretation Comments G-value Rapid (test code = G-value 9.4 5.0-11.6 Rapid) [facility] [id number] 04:41:00 Test Item Value Reference Range Interpretation Comments ACT (TEG) Rapid (test code = ACT (TEG) 105 s 86-118 Rapid) [facility] [id number] 04:41:00 Test Item Value Reference Range Interpretation Comments Split Point Rapid (test code = Split 0.4 min Point Rapid) [facility] [id number] 04:41:00 Test Item Value Reference Range Interpretation Comments R-time Rapid (test code = R-time 0.6 min 0.4-0.7 Rapid) [facility] [id number] 04:41:00 Test Item Value Reference Range Interpretation Comments K-time Rapid (test code = K-time 1.0 min 0.6-2.3 Rapid) [facility] [id number] 04:41:00 Test Item Value Reference Range Interpretation Comments Angle Rapid (test code = Angle 76 degrees 64-80 Rapid) [facility]2018-09-10 04:41:00 Test Item Value Reference Range Interpretation Comments Ca Norm WB (test code = Ca Norm WB) 0.96 1.05-1.25 [facility]2018-09-10 04:41:00 Test Item Value Reference Range Interpretation Comments Ca Ion WB (test code = Ca Ion WB) 0.99 1.05-1.25 [facility] AND [id number] 04:41:00 Test Item Value Reference Range Interpretation Comments UA Sq Epi (test code = UA Sq Epi) None Seen [facility] AND [id number] 04:41:00 Test Item Value Reference Range Interpretation Comments UA Urobilinogen (test code = UA 4.0 0.1-1.0 Urobilinogen) [facility] AND [id number] 04:41:00 Test Item Value Reference Range Interpretation Comments UA Nitrite (test code Negative (07/15/18 11:41 = UA Nitrite) PM) [facility] AND [id number] 04:41:00 Test Item Value Reference Range Interpretation Comments UA Bili (test code = Negative *NA*(07/15/18 UA Bili) 11:41 PM) [facility] AND [id number] 04:41:00 Test Item Value Reference Range Interpretation Comments UA Blood (test code = Large *ABN*(07/15/18 UA Blood) 11:41 PM) [facility] AND [id number] 04:41:00 Test Item Value Reference Range Interpretation Comments UA Glucose (test code = UA Negative mg/dL Glucose) [facility] AND [id number] 04:41:00 Test Item Value Reference Range Interpretation Comments UA Ketones (test code = UA Trace mg/dL Ketones) [facility] AND [id number] 04:41:00 Test Item Value Reference Range Interpretation Comments UA Protein (test code = UA Protein) 30 mg/dL [facility] AND [id number] 04:41:00 Test Item Value Reference Range Interpretation Comments UA pH (test code = UA pH) 5.0 1 5.0-8.0 [facility] AND [id number] 04:41:00 Test Item Value Reference Range Interpretation Comments UA Leuk Est (test code Large *ABN*(07/15/18 = UA Leuk Est) 11:41 PM) [facility] AND [id number] 04:41:00 Test Item Value Reference Range Interpretation Comments UA WBC (test code = 44 See_Comment [Automa didi message] The UA WBC) system which ge nerated this result transmit didi reference range : <=5. The reference range was not used to interpr et this result as james l/abnormal. [facility] AND [id number] 04:41:00 Test Item Value Reference Range Interpretation Comments UA RBC (test code = 154 See_Comment [Automa didi message] The UA RBC) system which ge nerated this result transmit didi reference range : <=2. The reference range was not used to interpr et this result as james l/abnormal. [facility] AND [id number] 04:41:00 Test Item Value Reference Range Interpretation Comments UA Bacteria (test code = UA Occasional /HPF Bacteria) [facility] AND [id number] 04:41:00 Test Item Value Reference Range Interpretation Comments UA Hyal Cast (test 58 See_Comment [Automat ed message] The code = UA Hyal Cast) system which generated this result transmit didi reference range : <=2. The reference range was not used to interpr et this result as james l/abnormal. [facility] AND [id number] 04:41:00 Test Item Value Reference Range Interpretation Comments UA Spec Grav (test code = UA Spec 1.031 1 Grav) [facility] AND [id number] 04:41:00 Test Item Value Reference Range Interpretation Comments UA Turbidity (test code Slight *ABN*(07/15/18 = UA Turbidity) 11:41 PM) [facility] AND [id number] 04:41:00 Test Item Value Reference Range Interpretation Comments UA Color (test code = Yellow *NA*(07/15/18 UA Color) 11:41 PM) [facility] [id number] 04:41:00 Test Item Value Reference Range Interpretation Comments U Sodium (test code = U Sodium) 29 [facility] [id number] 04:41:00 Test Item Value Reference Range Interpretation Comments U Creatinine (test code = U 191.00 Creatinine) [facility] [id number] 04:41:00 Test Item Value Reference Range Interpretation Comments Culture: Urine (test code = No Growth Culture: Urine) [facility] [id number] 22:34:00 Test Item Value Reference Range Interpretation Comments U Urea (test code = U Urea) 99 [facility] [id number] 22:34:00 Test Item Value Reference Range Interpretation Comments U Osmolality (test code = U Osmolality) 330 300-800 [facility]2018-09-09 22:34:00 Test Item Value Reference Range Interpretation Comments U Creatinine (test code = U 154.00 Creatinine) [facility]2018-09-09 22:34:00 Test Item Value Reference Range Interpretation Comments U Urea (test code = U Urea) 99 [facility] [id number] 22:34:00 Test Item Value Reference Range Interpretation Comments U Osmolality (test code = U Osmolality) 330 300-800 [facility] [id number] 22:34:00 Test Item Value Reference Range Interpretation Comments U Creatinine (test code = U 154.00 Creatinine) [facility] [id number] 22:34:00 Test Item Value Reference Range Interpretation Comments U Urea (test code = U Urea) 99 [facility] [id number] 22:34:00 Test Item Value Reference Range Interpretation Comments U Osmolality (test code = U Osmolality) 330 300-800 [facility] [id number] 22:34:00 Test Item Value Reference Range Interpretation Comments U Creatinine (test code = U 154.00 Creatinine) [facility] [id number] 22:34:00 Test Item Value Reference Range Interpretation Comments U Urea (test code = U Urea) 99 [facility]2018-09-09 22:34:00 Test Item Value Reference Range Interpretation Comments U Osmolality (test code = U Osmolality) 330 300-800 [facility] [id number] 22:34:00 Test Item Value Reference Range Interpretation Comments U Creatinine (test code = U 154.00 Creatinine) [facility]Get[facility] [id number] 20:32:00 Test Item Value Reference Range Interpretation Comments proBNP (test code = 765 See_Comment [Automa didi message] The proBNP) system which ge nerated this result tra nsmitted reference range : <=125. The reference r katie was not used to int erpret this result as james l/abnormal. [facility] [id number] 20:32:00 Test Item Value Reference Range Interpretation Comments Lactic Acid Lvl (test code = Lactic 2.0 0.5-2.2 Acid Lvl) [facility]Viyet [id number] 20:32:00 Test Item Value Reference Range Interpretation Comments proBNP (test code = 765 See_Comment [Automa didi message] The proBNP) system which ge nerated this result tra nsmitted reference range : <=125. The reference r katie was not used to int erpret this result as james l/abnormal. [facility] [id number] 20:32:00 Test Item Value Reference Range Interpretation Comments Lactic Acid Lvl (test code = Lactic 2.0 0.5-2.2 Acid Lvl) [facility] [id number] 20:32:00 Test Item Value Reference Range Interpretation Comments proBNP (test code = 765 See_Comment [Automa didi message] The proBNP) system which ge nerated this result tra nsmitted reference range : <=125. The reference r katie was not used to int erpret this result as james l/abnormal. [facility] [id number] 20:32:00 Test Item Value Reference Range Interpretation Comments Lactic Acid Lvl (test code = Lactic 2.0 0.5-2.2 Acid Lvl) [facility] HospitalCARDIAC [id number] 20:32:00 Test Item Value Reference Range Interpretation Comments proBNP (test code = 765 See_Comment [Automa didi message] The proBNP) system which ge nerated this result tra nsmitted reference range : <=125. The reference r katie was not used to int erpret this result as james l/abnormal. [facility] HospitalCHEM [id number] 20:32:00 Test Item Value Reference Range Interpretation Comments Lactic Acid Lvl (test code = Lactic 2.0 0.5-2.2 Acid Lvl) [facility] [id number] 13:46:00 Test Item Value Reference Range Interpretation Comments Basophils # (test code 0.1 See_Comment [Aut omated message] The = Basophils #) system which generated this result tra nsmitted reference range : <=0.2. The reference r katie was not used to int erpret this result as normal/abnormal . [facility] [id number] 13:46:00 Test Item Value Reference Range Interpretation Comments Hgb A1C (test code = Hgb A1C) 10.0 [facility] [id number] 13:46:00 Test Item Value Reference Range Interpretation Comments Basophils # (test code 0.1 See_Comment [Aut omated message] The = Basophils #) system which generated this result tra nsmitted reference range : <=0.2. The reference r katie was not used to int erpret this result as normal/abnormal . [facility] [id number] 13:46:00 Test Item Value Reference Range Interpretation Comments Hgb A1C (test code = Hgb A1C) 10.0 [facility] [id number] 13:46:00 Test Item Value Reference Range Interpretation Comments Basophils # (test code 0.1 See_Comment [Aut omated message] The = Basophils #) system which generated this result tra nsmitted reference range : <=0.2. The reference r katie was not used to int erpret this result as normal/abnormal . [facility] [id number] 13:46:00 Test Item Value Reference Range Interpretation Comments Hgb A1C (test code = Hgb A1C) 10.0 [id number] 13:46:00 Test Item Value Reference Range Interpretation Comments Basophils # (test code 0.1 See_Comment [Aut omated message] The = Basophils #) system which generated this result tra nsmitted reference range : <=0.2. The reference r katie was not used to int erpret this result as normal/abnormal . [facility] [id number] 13:46:00 Test Item Value Reference Range Interpretation Comments Hgb A1C (test code = Hgb A1C) 10.0 [facility] [id number] 06:41:00 Test Item Value Reference Range Interpretation Comments Lactic Acid Lvl (test code = Lactic 2.4 0.5-2.2 Acid Lvl) [facility]2018-09-09 06:41:00 Test Item Value Reference Range Interpretation Comments Lactic Acid Lvl (test code = Lactic 2.4 0.5-2.2 Acid Lvl) [facility]2018-09-09 06:41:00 Test Item Value Reference Range Interpretation Comments Lactic Acid Lvl (test code = Lactic 2.4 0.5-2.2 Acid Lvl) [facility]2018-09-09 06:41:00 Test Item Value Reference Range Interpretation Comments Lactic Acid Lvl (test code = Lactic 2.4 0.5-2.2 Acid Lvl) [facility] [id number] 06:37:00 Test Item Value Reference Range Interpretation Comments Basophils # (test code 0.1 See_Comment [Aut omated message] The = Basophils #) system which generated this result tra nsmitted reference range : <=0.2. The reference r katie was not used to int erpret this result as normal/abnormal . [facility] [id number] 06:37:00 Test Item Value Reference Range Interpretation Comments Basophils # (test code 0.1 See_Comment [Aut omated message] The = Basophils #) system which generated this result tra nsmitted reference range : <=0.2. The reference r katie was not used to int erpret this result as normal/abnormal . [facility] [id number] 06:37:00 Test Item Value Reference Range Interpretation Comments Basophils # (test code 0.1 See_Comment [Aut omated message] The = Basophils #) system which generated this result tra nsmitted reference range : <=0.2. The reference r katie was not used to int erpret this result as normal/abnormal . [id number] 06:37:00 Test Item Value Reference Range Interpretation Comments Basophils # (test code 0.1 See_Comment [Aut omated message] The = Basophils #) system which generated this result tra nsmitted reference range : <=0.2. The reference r katie was not used to int erpret this result as normal/abnormal . [facility] [id number] 00:06:00 Test Item Value Reference Range Interpretation Comments U Benzodiaz Scr (test Negative *NA*(07/14/18 code = U Benzodiaz Scr) 7:06 PM) [facility] [id number] 00:06:00 Test Item Value Reference Range Interpretation Comments U Tessa Scr (test code Negative *NA*(07/14/18 = U Tessa Scr) 7:06 PM) [facility] [id number] 00:06:00 Test Item Value Reference Range Interpretation Comments U Cocaine Scr (test Negative *NA*(07/14/18 code = U Cocaine Scr) 7:06 PM) [facility] [id number] 00:06:00 Test Item Value Reference Range Interpretation Comments U Cannab Scr (test Negative *NA*(07/14/18 code = U Cannab Scr) 7:06 PM) [facility] [id number] 00:06:00 Test Item Value Reference Range Interpretation Comments U Phencyclidine Scr (test Negative *NA*(07/14/18 code = U Phencyclidine 7:06 PM) Scr) [facility] [id number] 00:06:00 Test Item Value Reference Range Interpretation Comments U Opiate Scr (test Negative *NA*(07/14/18 code = U Opiate Scr) 7:06 PM) [facility] [id number] 00:06:00 Test Item Value Reference Range Interpretation Comments UDS Note (test code = See Note *NA*(07/14/18 UDS Note) 7:06 PM) [facility] [id number] 00:06:00 Test Item Value Reference Range Interpretation Comments U Amph Scr (test code Negative *NA*(07/14/18 = U Amph Scr) 7:06 PM) [facility] [id number] 00:06:00 Test Item Value Reference Range Interpretation Comments UA Sq Epi (test code = UA Sq Epi) Rare /LPF [facility] [id number] 00:06:00 Test Item Value Reference Range Interpretation Comments UA RBC (test None Seen See_Comment [Automated mes aarti] code = UA RBC) (07/14/18 7:06 PM) The syste m which generated this result transmitted ref erence range: <=2. The reference range was not used to int erpret this result as normal/abnormal . [facility] [id number] 00:06:00 Test Item Value Reference Range Interpretation Comments UA WBC (test code = UA WBC) 1-3 [facility] [id number] 00:06:00 Test Item Value Reference Range Interpretation Comments UA Leuk Est (test Negative (07/14/18 7:06 code = UA Leuk Est) PM) [facility] [id number] 00:06:00 Test Item Value Reference Range Interpretation Comments UA Blood (test code = Negative (07/14/18 7:06 UA Blood) PM) [facility] [id number] 00:06:00 Test Item Value Reference Range Interpretation Comments UA Urobilinogen (test code = UA 0.2 0.1-1.0 Urobilinogen) [facility] [id number] 00:06:00 Test Item Value Reference Range Interpretation Comments UA Nitrite (test code Negative (07/14/18 7:06 = UA Nitrite) PM) [facility] [id number] 00:06:00 Test Item Value Reference Range Interpretation Comments UA Bili (test code = Negative *NA*(07/14/18 UA Bili) 7:06 PM) [facility] [id number] 00:06:00 Test Item Value Reference Range Interpretation Comments UA Ketones (test code Negative *NA*(07/14/18 = UA Ketones) 7:06 PM) [facility] [id number] 00:06:00 Test Item Value Reference Range Interpretation Comments UA Protein (test code = UA Protein) 30 mg/dL [facility] [id number] 00:06:00 Test Item Value Reference Range Interpretation Comments UA Glucose (test code Negative (07/14/18 7:06 = UA Glucose) PM) [facility] [id number] 00:06:00 Test Item Value Reference Range Interpretation Comments UA Color (test code = Yellow *NA*(07/14/18 7:06 UA Color) PM) [facility] [id number] 00:06:00 Test Item Value Reference Range Interpretation Comments UA Turbidity (test code = Clear (07/14/18 7:06 UA Turbidity) PM) [facility] [id number] 00:06:00 Test Item Value Reference Range Interpretation Comments UA Spec Grav (test code = UA Spec 1.010 1 Grav) [facility] AND [id number] 00:06:00 Test Item Value Reference Range Interpretation Comments UA pH (test code = UA pH) 5.5 1 5.0-8.0 [facility] [id number] 00:06:00 Test Item Value Reference Range Interpretation Comments U Benzodiaz Scr (test Negative *NA*(07/14/18 code = U Benzodiaz Scr) 7:06 PM) [facility] [id number] 00:06:00 Test Item Value Reference Range Interpretation Comments U Tessa Scr (test code Negative *NA*(07/14/18 = U Tessa Scr) 7:06 PM) [facility] [id number] 00:06:00 Test Item Value Reference Range Interpretation Comments U Cocaine Scr (test Negative *NA*(07/14/18 code = U Cocaine Scr) 7:06 PM) [facility] [id number] 00:06:00 Test Item Value Reference Range Interpretation Comments U Cannab Scr (test Negative *NA*(07/14/18 code = U Cannab Scr) 7:06 PM) [facility] [id number] 00:06:00 Test Item Value Reference Range Interpretation Comments U Phencyclidine Scr (test Negative *NA*(07/14/18 code = U Phencyclidine 7:06 PM) Scr) [facility] [id number] 00:06:00 Test Item Value Reference Range Interpretation Comments U Opiate Scr (test Negative *NA*(07/14/18 code = U Opiate Scr) 7:06 PM) [facility] [id number] 00:06:00 Test Item Value Reference Range Interpretation Comments UDS Note (test code = See Note *NA*(07/14/18 UDS Note) 7:06 PM) [facility] [id number] 00:06:00 Test Item Value Reference Range Interpretation Comments U Amph Scr (test code Negative *NA*(07/14/18 = U Amph Scr) 7:06 PM) [facility] [id number] 00:06:00 Test Item Value Reference Range Interpretation Comments UA Sq Epi (test code = UA Sq Epi) Rare /LPF [facility] [id number] 00:06:00 Test Item Value Reference Range Interpretation Comments UA RBC (test None Seen See_Comment [Automated mes aarti] code = UA RBC) (07/14/18 7:06 PM) The [employer] m which generated this result transmitted ref erence range: <=2. The reference range was not used to int erpret this result as normal/abnormal . [facility] [id number] 00:06:00 Test Item Value Reference Range Interpretation Comments UA WBC (test code = UA WBC) 1-3 [facility] [id number] 00:06:00 Test Item Value Reference Range Interpretation Comments UA Leuk Est (test Negative (07/14/18 7:06 code = UA Leuk Est) PM) [facility] [id number] 00:06:00 Test Item Value Reference Range Interpretation Comments UA Blood (test code = Negative (07/14/18 7:06 UA Blood) PM) [facility] [id number] 00:06:00 Test Item Value Reference Range Interpretation Comments UA Urobilinogen (test code = UA 0.2 0.1-1.0 Urobilinogen) [facility] [id number] 00:06:00 Test Item Value Reference Range Interpretation Comments UA Nitrite (test code Negative (07/14/18 7:06 = UA Nitrite) PM) [facility] [id number] 00:06:00 Test Item Value Reference Range Interpretation Comments UA Bili (test code = Negative *NA*(07/14/18 UA Bili) 7:06 PM) [facility] [id number] 00:06:00 Test Item Value Reference Range Interpretation Comments UA Ketones (test code Negative *NA*(07/14/18 = UA Ketones) 7:06 PM) [facility] [id number] 00:06:00 Test Item Value Reference Range Interpretation Comments UA Protein (test code = UA Protein) 30 mg/dL [facility] [id number] 00:06:00 Test Item Value Reference Range Interpretation Comments UA Glucose (test code Negative (07/14/18 7:06 = UA Glucose) PM) [facility] [id number] 00:06:00 Test Item Value Reference Range Interpretation Comments UA Color (test code = Yellow *NA*(07/14/18 7:06 UA Color) PM) [facility] [id number] 00:06:00 Test Item Value Reference Range Interpretation Comments UA Turbidity (test code = Clear (07/14/18 7:06 UA Turbidity) PM) [facility] [id number] 00:06:00 Test Item Value Reference Range Interpretation Comments UA Spec Grav (test code = UA Spec 1.010 1 Grav) [facility] [id number] 00:06:00 Test Item Value Reference Range Interpretation Comments UA pH (test code = UA pH) 5.5 1 5.0-8.0 [facility] [id number] 00:06:00 Test Item Value Reference Range Interpretation Comments U Benzodiaz Scr (test Negative *NA*(07/14/18 code = U Benzodiaz Scr) 7:06 PM) [facility] [id number] 00:06:00 Test Item Value Reference Range Interpretation Comments U Tessa Scr (test code Negative *NA*(07/14/18 = U Tessa Scr) 7:06 PM) [facility] [id number] 00:06:00 Test Item Value Reference Range Interpretation Comments U Cocaine Scr (test Negative *NA*(07/14/18 code = U Cocaine Scr) 7:06 PM) [facility] [id number] 00:06:00 Test Item Value Reference Range Interpretation Comments U Cannab Scr (test Negative *NA*(07/14/18 code = U Cannab Scr) 7:06 PM) [facility] [id number] 00:06:00 Test Item Value Reference Range Interpretation Comments U Phencyclidine Scr (test Negative *NA*(07/14/18 code = U Phencyclidine 7:06 PM) Scr) [facility] [id number] 00:06:00 Test Item Value Reference Range Interpretation Comments U Opiate Scr (test Negative *NA*(07/14/18 code = U Opiate Scr) 7:06 PM) [facility] [id number] 00:06:00 Test Item Value Reference Range Interpretation Comments UDS Note (test code = See Note *NA*(07/14/18 UDS Note) 7:06 PM) [facility] [id number] 00:06:00 Test Item Value Reference Range Interpretation Comments U Amph Scr (test code Negative *NA*(07/14/18 = U Amph Scr) 7:06 PM) [facility] [id number] 00:06:00 Test Item Value Reference Range Interpretation Comments UA Sq Epi (test code = UA Sq Epi) Rare /LPF [facility] [id number] 00:06:00 Test Item Value Reference Range Interpretation Comments UA RBC (test None Seen See_Comment [Automated mes aarti] code = UA RBC) (07/14/18 7:06 PM) The syste m which generated this result transmitted ref erence range: <=2. The reference range was not used to int erpret this result as normal/abnormal . [facility] [id number] 00:06:00 Test Item Value Reference Range Interpretation Comments UA WBC (test code = UA WBC) 1-3 [facility] [id number] 00:06:00 Test Item Value Reference Range Interpretation Comments UA Leuk Est (test Negative (07/14/18 7:06 code = UA Leuk Est) PM) [facility] [id number] 00:06:00 Test Item Value Reference Range Interpretation Comments UA Blood (test code = Negative (07/14/18 7:06 UA Blood) PM) [facility] AND [id number] 00:06:00 Test Item Value Reference Range Interpretation Comments UA Urobilinogen (test code = UA 0.2 0.1-1.0 Urobilinogen) [facility] AND [id number] 00:06:00 Test Item Value Reference Range Interpretation Comments UA Nitrite (test code Negative (07/14/18 7:06 = UA Nitrite) PM) [facility] AND [id number] 00:06:00 Test Item Value Reference Range Interpretation Comments UA Bili (test code = Negative *NA*(07/14/18 UA Bili) 7:06 PM) [facility] AND [id number] 00:06:00 Test Item Value Reference Range Interpretation Comments UA Ketones (test code Negative *NA*(07/14/18 = UA Ketones) 7:06 PM) [facility] AND [id number] 00:06:00 Test Item Value Reference Range Interpretation Comments UA Protein (test code = UA Protein) 30 mg/dL [facility] AND [id number] 00:06:00 Test Item Value Reference Range Interpretation Comments UA Glucose (test code Negative (07/14/18 7:06 = UA Glucose) PM) [facility] AND [id number] 00:06:00 Test Item Value Reference Range Interpretation Comments UA Color (test code = Yellow *NA*(07/14/18 7:06 UA Color) PM) [facility] AND [id number] 00:06:00 Test Item Value Reference Range Interpretation Comments UA Turbidity (test code = Clear (07/14/18 7:06 UA Turbidity) PM) [facility] AND [id number] 00:06:00 Test Item Value Reference Range Interpretation Comments UA Spec Grav (test code = UA Spec 1.010 1 Grav) [facility] AND [id number] 00:06:00 Test Item Value Reference Range Interpretation Comments UA pH (test code = UA pH) 5.5 1 5.0-8.0 [facility] [id number] 00:06:00 Test Item Value Reference Range Interpretation Comments U Benzodiaz Scr (test Negative *NA*(07/14/18 code = U Benzodiaz Scr) 7:06 PM) [facility] [id number] 00:06:00 Test Item Value Reference Range Interpretation Comments U Tessa Scr (test code Negative *NA*(07/14/18 = U Tessa Scr) 7:06 PM) [facility] [id number] 00:06:00 Test Item Value Reference Range Interpretation Comments U Cocaine Scr (test Negative *NA*(07/14/18 code = U Cocaine Scr) 7:06 PM) [facility] [id number] 00:06:00 Test Item Value Reference Range Interpretation Comments U Cannab Scr (test Negative *NA*(07/14/18 code = U Cannab Scr) 7:06 PM) [facility] [id number] 00:06:00 Test Item Value Reference Range Interpretation Comments U Phencyclidine Scr (test Negative *NA*(07/14/18 code = U Phencyclidine 7:06 PM) Scr) [facility] [id number] 00:06:00 Test Item Value Reference Range Interpretation Comments U Opiate Scr (test Negative *NA*(07/14/18 code = U Opiate Scr) 7:06 PM) [facility] [id number] 00:06:00 Test Item Value Reference Range Interpretation Comments UDS Note (test code = See Note *NA*(07/14/18 UDS Note) 7:06 PM) [facility] [id number] 00:06:00 Test Item Value Reference Range Interpretation Comments U Amph Scr (test code Negative *NA*(07/14/18 = U Amph Scr) 7:06 PM) [facility] [id number] 00:06:00 Test Item Value Reference Range Interpretation Comments UA Sq Epi (test code = UA Sq Epi) Rare /LPF [facility] [id number] 00:06:00 Test Item Value Reference Range Interpretation Comments UA RBC (test None Seen See_Comment [Automated mes aarti] code = UA RBC) (07/14/18 7:06 PM) The syste m which generated this result transmitted ref erence range: <=2. The reference range was not used to int erpret this result as normal/abnormal . [facility] AND [id number] 00:06:00 Test Item Value Reference Range Interpretation Comments UA WBC (test code = UA WBC) 1-3 [facility] AND [id number] 00:06:00 Test Item Value Reference Range Interpretation Comments UA Leuk Est (test Negative (07/14/18 7:06 code = UA Leuk Est) PM) [facility] AND [id number] 00:06:00 Test Item Value Reference Range Interpretation Comments UA Blood (test code = Negative (07/14/18 7:06 UA Blood) PM) [facility] AND [id number] 00:06:00 Test Item Value Reference Range Interpretation Comments UA Urobilinogen (test code = UA 0.2 0.1-1.0 Urobilinogen) [facility] AND [id number] 00:06:00 Test Item Value Reference Range Interpretation Comments UA Nitrite (test code Negative (07/14/18 7:06 = UA Nitrite) PM) [facility] AND [id number] 00:06:00 Test Item Value Reference Range Interpretation Comments UA Bili (test code = Negative *NA*(07/14/18 UA Bili) 7:06 PM) [facility] AND [id number] 00:06:00 Test Item Value Reference Range Interpretation Comments UA Ketones (test code Negative *NA*(07/14/18 = UA Ketones) 7:06 PM) [facility] AND [id number] 00:06:00 Test Item Value Reference Range Interpretation Comments UA Protein (test code = UA Protein) 30 mg/dL [facility] AND [id number] 00:06:00 Test Item Value Reference Range Interpretation Comments UA Glucose (test code Negative (07/14/18 7:06 = UA Glucose) PM) [facility] AND [id number] 00:06:00 Test Item Value Reference Range Interpretation Comments UA Color (test code = Yellow *NA*(07/14/18 7:06 UA Color) PM) [facility] AND [id number] 00:06:00 Test Item Value Reference Range Interpretation Comments UA Turbidity (test code = Clear (07/14/18 7:06 UA Turbidity) PM) [facility] AND [id number] 00:06:00 Test Item Value Reference Range Interpretation Comments UA Spec Grav (test code = UA Spec 1.010 1 Grav) [facility] AND [id number] 00:06:00 Test Item Value Reference Range Interpretation Comments UA pH (test code = UA pH) 5.5 1 5.0-8.0 [facility] [id number] 22:29:18 Test Item Value Reference Range Interpretation Comments Troponin-I (test code no gt See_Comment [Auto mated message] The = Troponin-I) system which g enerated this result transmit didi reference range : <=0.40. The reference r katie was not used to interpr et this result as james l/abnormal. [facility] [id number] 22:29:18 Test Item Value Reference Range Interpretation Comments Troponin-I (test code no gt See_Comment [Auto mated message] The = Troponin-I) system which g enerated this result transmit didi reference range : <=0.40. The reference r katie was not used to interpr et this result as james l/abnormal. [facility] [id number] 22:29:18 Test Item Value Reference Range Interpretation Comments Troponin-I (test code no gt See_Comment [Auto mated message] The = Troponin-I) system which g enerated this result transmit didi reference range : <=0.40. The reference r katie was not used to interpr et this result as james l/abnormal. [facility] [id number] 22:29:18 Test Item Value Reference Range Interpretation Comments Troponin-I (test code no gt See_Comment [Auto mated message] The = Troponin-I) system which g enerated this result transmit didi reference range : <=0.40. The reference r katie was not used to interpr et this result as james l/abnormal. [id number] 22:05:00 Test Item Value Reference Range Interpretation Comments Basophils # (test code 0.1 See_Comment [Aut omated message] The = Basophils #) system which generated this result tra nsmitted reference range : <=0.2. The reference r katie was not used to int erpret this result as normal/abnormal . [facility] [id number] 22:05:00 Test Item Value Reference Range Interpretation Comments Basophils # (test code 0.1 See_Comment [Aut omated message] The = Basophils #) system which generated this result tra nsmitted reference range : <=0.2. The reference r katie was not used to int erpret this result as normal/abnormal . [facility] [id number] 22:05:00 Test Item Value Reference Range Interpretation Comments Basophils # (test code 0.1 See_Comment [Aut omated message] The = Basophils #) system which generated this result tra nsmitted reference range : <=0.2. The reference r katie was not used to int erpret this result as normal/abnormal . [facility] [id number] 22:05:00 Test Item Value Reference Range Interpretation Comments Basophils # (test code 0.1 See_Comment [Aut omated message] The = Basophils #) system which generated this result tra nsmitted reference range : <=0.2. The reference r katie was not used to int erpret this result as normal/abnormal . [facility] [id number] 19:58:00 Test Item Value Reference Range Interpretation Comments Antibody Scrn (test Negative (07/14/18 2:58 code = Antibody Scrn) PM) [facility] [id number] 19:58:00 Test Item Value Reference Range Interpretation Comments ABO/Rh (test code = ABO/Rh) O POS [facility] [id number] 19:58:00 Test Item Value Reference Range Interpretation Comments Estimated % Lysis Rapid 0.1 See_Comment [Au tomated message] The (test code = Estimated syste m which generated % Lysis Rapid) this result t ransmitted reference range : <=7.5. The reference r katie was not used to int erpret this result as normal/abnormal . [facility] [id number] 19:58:00 Test Item Value Reference Range Interpretation Comments G-value Rapid (test code = G-value 12.0 5.0-11.6 Rapid) [facility] [id number] 19:58:00 Test Item Value Reference Range Interpretation Comments Max Amplitude Rapid (test code = Max 71 mm 52-71 Amplitude Rapid) [facility] [id number] 19:58:00 Test Item Value Reference Range Interpretation Comments Split Point Rapid (test code = Split 0.5 min Point Rapid) [facility] [id number] 19:58:00 Test Item Value Reference Range Interpretation Comments ACT (TEG) Rapid (test code = ACT (TEG) 113 s 86-118 Rapid) [facility] [id number] 19:58:00 Test Item Value Reference Range Interpretation Comments R-time Rapid (test code = R-time 0.7 min 0.4-0.7 Rapid) [facility] [id number] 19:58:00 Test Item Value Reference Range Interpretation Comments K-time Rapid (test code = K-time 1.0 min 0.6-2.3 Rapid) [facility] [id number] 19:58:00 Test Item Value Reference Range Interpretation Comments Angle Rapid (test code = Angle 77 degrees 64-80 Rapid) [facility] [id number] 19:58:00 Test Item Value Reference Range Interpretation Comments PT (test code = PT) 13.7 s 12.0-14.7 [facility] [id number] 19:58:00 Test Item Value Reference Range Interpretation Comments INR (test code = INR) 1.05 1 0.85-1.17 [facility] [id number] 19:58:00 Test Item Value Reference Range Interpretation Comments PTT (test code = PTT) 25.0 s 22.9-35.8 [id number] 19:58:00 Test Item Value Reference Range Interpretation Comments Etoh (%) (test code = Etoh (%)) <0.003 % [id number] 19:58:00 Test Item Value Reference Range Interpretation Comments Ethanol Lvl (test code = Ethanol <3.0 mg/dL Lvl) [facility] [id number] 19:58:00 Test Item Value Reference Range Interpretation Comments Antibody Scrn (test Negative (07/14/18 2:58 code = Antibody Scrn) PM) [facility] [id number] 19:58:00 Test Item Value Reference Range Interpretation Comments ABO/Rh (test code = ABO/Rh) O POS [facility] [id number] 19:58:00 Test Item Value Reference Range Interpretation Comments Estimated % Lysis Rapid 0.1 See_Comment [Au tomated message] The (test code = Estimated syste m which generated % Lysis Rapid) this result t ransmitted reference range : <=7.5. The reference r katie was not used to int erpret this result as normal/abnormal . [facility] [id number] 19:58:00 Test Item Value Reference Range Interpretation Comments G-value Rapid (test code = G-value 12.0 5.0-11.6 Rapid) [facility] [id number] 19:58:00 Test Item Value Reference Range Interpretation Comments Max Amplitude Rapid (test code = Max 71 mm 52-71 Amplitude Rapid) [facility] [id number] 19:58:00 Test Item Value Reference Range Interpretation Comments Split Point Rapid (test code = Split 0.5 min Point Rapid) [facility] [id number] 19:58:00 Test Item Value Reference Range Interpretation Comments ACT (TEG) Rapid (test code = ACT (TEG) 113 s 86-118 Rapid) [facility] [id number] 19:58:00 Test Item Value Reference Range Interpretation Comments R-time Rapid (test code = R-time 0.7 min 0.4-0.7 Rapid) [facility] [id number] 19:58:00 Test Item Value Reference Range Interpretation Comments K-time Rapid (test code = K-time 1.0 min 0.6-2.3 Rapid) [facility] [id number] 19:58:00 Test Item Value Reference Range Interpretation Comments Angle Rapid (test code = Angle 77 degrees 64-80 Rapid) [facility] [id number] 19:58:00 Test Item Value Reference Range Interpretation Comments PT (test code = PT) 13.7 s 12.0-14.7 [facility] [id number] 19:58:00 Test Item Value Reference Range Interpretation Comments INR (test code = INR) 1.05 1 0.85-1.17 [facility] [id number] 19:58:00 Test Item Value Reference Range Interpretation Comments PTT (test code = PTT) 25.0 s 22.9-35.8 [place] [id number] 19:58:00 Test Item Value Reference Range Interpretation Comments Etoh (%) (test code = Etoh (%)) <0.003 % [place] [id number] 19:58:00 Test Item Value Reference Range Interpretation Comments Ethanol Lvl (test code = Ethanol <3.0 mg/dL Lvl) [facility] [id number] 19:58:00 Test Item Value Reference Range Interpretation Comments Antibody Scrn (test Negative (07/14/18 2:58 code = Antibody Scrn) PM) [facility] [id number] 19:58:00 Test Item Value Reference Range Interpretation Comments ABO/Rh (test code = ABO/Rh) O POS [facility] [id number] 19:58:00 Test Item Value Reference Range Interpretation Comments Estimated % Lysis Rapid 0.1 See_Comment [Au tomated message] The (test code = Estimated syste m which generated % Lysis Rapid) this result t ransmitted reference range : <=7.5. The reference r katie was not used to int erpret this result as normal/abnormal . [facility] [id number] 19:58:00 Test Item Value Reference Range Interpretation Comments G-value Rapid (test code = G-value 12.0 5.0-11.6 Rapid) [facility] [id number] 19:58:00 Test Item Value Reference Range Interpretation Comments Max Amplitude Rapid (test code = Max 71 mm 52-71 Amplitude Rapid) [facility] [id number] 19:58:00 Test Item Value Reference Range Interpretation Comments Split Point Rapid (test code = Split 0.5 min Point Rapid) [facility] [id number] 19:58:00 Test Item Value Reference Range Interpretation Comments ACT (TEG) Rapid (test code = ACT (TEG) 113 s 86-118 Rapid) [facility] [id number] 19:58:00 Test Item Value Reference Range Interpretation Comments R-time Rapid (test code = R-time 0.7 min 0.4-0.7 Rapid) [facility] [id number] 19:58:00 Test Item Value Reference Range Interpretation Comments K-time Rapid (test code = K-time 1.0 min 0.6-2.3 Rapid) [facility] [id number] 19:58:00 Test Item Value Reference Range Interpretation Comments Angle Rapid (test code = Angle 77 degrees 64-80 Rapid) [facility] [id number] 19:58:00 Test Item Value Reference Range Interpretation Comments PT (test code = PT) 13.7 s 12.0-14.7 [facility] [id number] 19:58:00 Test Item Value Reference Range Interpretation Comments INR (test code = INR) 1.05 1 0.85-1.17 [facility] [id number] 19:58:00 Test Item Value Reference Range Interpretation Comments PTT (test code = PTT) 25.0 s 22.9-35.8 [id number] 19:58:00 Test Item Value Reference Range Interpretation Comments Etoh (%) (test code = Etoh (%)) <0.003 % [place] [id number] 19:58:00 Test Item Value Reference Range Interpretation Comments Ethanol Lvl (test code = Ethanol <3.0 mg/dL Lvl) [facility] [id number] 19:58:00 Test Item Value Reference Range Interpretation Comments Antibody Scrn (test Negative (07/14/18 2:58 code = Antibody Scrn) PM) [facility] [id number] 19:58:00 Test Item Value Reference Range Interpretation Comments ABO/Rh (test code = ABO/Rh) O POS [facility] [id number] 19:58:00 Test Item Value Reference Range Interpretation Comments Estimated % Lysis Rapid 0.1 See_Comment [Au tomated message] The (test code = Estimated syste m which generated % Lysis Rapid) this result t ransmitted reference range : <=7.5. The reference r katie was not used to int erpret this result as normal/abnormal . [facility] [id number] 19:58:00 Test Item Value Reference Range Interpretation Comments G-value Rapid (test code = G-value 12.0 5.0-11.6 Rapid) [facility] [id number] 19:58:00 Test Item Value Reference Range Interpretation Comments Max Amplitude Rapid (test code = Max 71 mm 52-71 Amplitude Rapid) [facility] [id number] 19:58:00 Test Item Value Reference Range Interpretation Comments Split Point Rapid (test code = Split 0.5 min Point Rapid) [facility] [id number] 19:58:00 Test Item Value Reference Range Interpretation Comments ACT (TEG) Rapid (test code = ACT (TEG) 113 s 86-118 Rapid) [facility] [id number] 19:58:00 Test Item Value Reference Range Interpretation Comments R-time Rapid (test code = R-time 0.7 min 0.4-0.7 Rapid) [facility] [id number] 19:58:00 Test Item Value Reference Range Interpretation Comments K-time Rapid (test code = K-time 1.0 min 0.6-2.3 Rapid) [facility] [id number] 19:58:00 Test Item Value Reference Range Interpretation Comments Angle Rapid (test code = Angle 77 degrees 64-80 Rapid) [facility] [id number] 19:58:00 Test Item Value Reference Range Interpretation Comments PT (test code = PT) 13.7 s 12.0-14.7 [facility] [id number] 19:58:00 Test Item Value Reference Range Interpretation Comments INR (test code = INR) 1.05 1 0.85-1.17 [facility] [id number] 19:58:00 Test Item Value Reference Range Interpretation Comments PTT (test code = PTT) 25.0 s 22.9-35.8 [place] [id number] 19:58:00 Test Item Value Reference Range Interpretation Comments Etoh (%) (test code = Etoh (%)) <0.003 % [place] [id number] 19:58:00 Test Item Value Reference Range Interpretation Comments Ethanol Lvl (test code = Ethanol <3.0 mg/dL Lvl) [facility]
--- NOTE | 2022-11-30 16:39 | RAD REPORT ---
EXAM DESCRIPTION: US - Extremity Venous Uni Ltd - 11/30/2022 4:31 pm CLINICAL HISTORY: PAIN Leg swelling and edema. COMPARISON: No comparisons FINDINGS: Left lower extremity venous system was interrogated with Doppler technique. Normal flow, c ompressibility and augmentation was noted. There is no DVT present. IMPRESSION: No evidence of left lower extremity deep venous thrombosis.
[2022-11-30 18:01] LABS: Absolute Lymphocytes (CBC) 0.3 K/uL (0.7-4.9); Hematocrit 20.5 % (39.6-49.0); Lymphocytes % 14.8 % (15.3-44.8); MCV 89.9 fL (80-100); MPV 7.6 fL (7.6-11.3); RBC Red Blood Cell Count 2.28 M/uL (4.33-5.43)
[2022-11-30 18:21] LABS: Albumin 1.7 g/dL (3.4-5.0); Bilirubin Total 0.3 mg/dL (0.2-1.0); Potassium 3.8 mmol/L (3.5-5.1); Protein, Total 5.3 g/dL (6.4-8.2)
--- NOTE | 2022-11-30 18:28 | ER ---
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 The provider at [facility] is also concerned of a possible DVT in patients left lower extremity. Patient is currently A/O x's 4, reports mild discomfort to the left lower extremity. Patient comes from [facility] with a mitchell catheter in place. Coronavirus screen: At this time, the client does not indicate any symptoms associated with coronavirus-19. Ebola Screen: No symptoms or risks identified at this time. Initial Sepsis Screen: Does the patient meet any 2 criteria? No. Patient's initial sepsis screen is negative. Does the patient have a suspected source of infection? Yes: Skin breakdown/wound. Risk Assessment: Do you want to hurt yourself or someone else? Patient reports no desire to harm self or others. Onset of symptoms was November 30, 2022. 15:06 Method Of Arrival: EMS: [facility] ap3 15:06 Acuity: MATTHEW 3 ap3 Triage Assessment: 15:09 General: Appears in no apparent distress. Behavior is calm, cooperative. General: ap3 Reports fatigue for. Pain: Complains of pain in lateral side of left heel and heel of left foot. Neuro: Level of Consciousness is awake, alert, obeys commands. Cardiovascular: Patient's skin is warm and dry. Respiratory: Airway is patent Respiratory effort is even, unlabored, Respiratory pattern is regular, symmetrical. Derm: Wound noted heel of left foot. Historical: - Allergies: 15:09 Lisinopril; ap3 - PMHx: 15:09 Anemia; Chronic ischemic heart disease; diabetes mellitus; HD - Tue//Sat; Secondary ap3 Hyperparathyroidism of renal origin; - Immunization history:: Client reports receiving the 2nd dose of the Covid vaccine. - Social history:: Smoking status: Patient denies any tobacco usage or history of. - Family history:: not pertinent. Screenin:11 [facility] ED Fall Risk Assessment (Adult) History of falling in the last 3 months, ap3 including since admission No falls in past 3 months (0 pts) Confusion or Disorientation No (0 pts) Intoxicated or Sedated No (0 pts) Impaired Gait No (0 pts) Mobility Assist Device Used No (0 pt) Altered Elimination Yes (1 pt) Score/Fall Risk Level 0 - 2 = Low Risk Oriented to surroundings, Maintained a safe environment, Educated pt \T\ family on fall prevention, incl call for assistance when getting out of bed, Assessed \T\ reinforced patient's understanding of fall precautions, Provided non-skid footwear, Hourly rounding (assess needs \T\ fall precautionary measures) done. Abuse screen: Denies threats or abuse. Nutritional screening: No deficits noted. Tuberculosis screening: No symptoms or risk factors identified. Assessment: 15:32 Reassessment: patient has an existing midline in place in left upper arm. ap3 Cardiovascular: Dialysis shunt: in the anterior aspect of right upper chest. 17:20 Reassessment: No changes from previously documented assessment. Patient and/or family ap3 updated on plan of care and expected duration. Pain level reassessed. Vital Signs: 15:06 BP 137 / 55; Pulse 64; Resp 18; Temp 97.7; Pulse Ox 99% ; Weight 135 kg; Height 5 ft. ap3 10 in. (177.80 cm); 17:20 Pulse 67; Resp 18; Pulse Ox 94% on R/A; ap3 15:06 Body Mass Index 42.70 (135.00 kg, 177.80 cm) ap3 ED Course: 14:54 Patient arrived in ED. am2 14:55 Jhony Askew MD is Attending Physician. rt 15:06 Ginny Wynne, RN is Primary Nurse. ap3 15:09 Triage completed. ap3 15:11 Arm band placed on right wrist. ap3 15:11 Patient has correct armband on for positive identification. Bed in low position. Call ap3 light in reach. Side rails up X2. Pulse ox on. NIBP on. Door closed. Noise minimized. 16:33 Extremity Venous Uni Ltd In Process Unspecified. EDMS 19:12 Primary Nurse role handed off by Ginny Wynne, RN mw2 20:25 Mariana Berg RN is Primary Nurse. ha1 Administered Medications: No medications were administered Medication: 15:11 VIS not applicable for this client. ap3 Outcome: 18:27 Discharge ordered by . rt 20:45 Patient left the ED. ds4 Signatures: Dispatcher [employer] EDMS OliveraKyle jacobs ds4 Ginny Mccormick am2 Ginny Wynne, RN RN ap3 Colton Gonzalez mw2 Mariana Berg RN RN ha1 Jhony Askew MD MD rt Corrections: (The following items were deleted from the chart) 15:24 15:22 In radiology for Extremity Venous Uni Ltd+[email or web address]. EDMS EDMS
--- NOTE | 2022-11-30 18:28 | EDPHYS ---
Physician Documentation [facility] Name: Harpreet Chen Sr Age: 72 yrs Sex: Male : 1950 Arrival Date: 11/30/2022 Time: 14:54 Bed 14 Private MD: ED Physician Jhony Askew HPI: 11/30 15:48 This 72 yrs old Male presents to ER via EMS with complaints of Wound Infection. rt 15:48 Patient presents to the ED with infection in his left foot, at the heel. The patient is rt currently receiving IV antibiotics at the senior care. Patient states that the foot is not significantly worse than previously, nursing was reportedly concerned for a DVT. Patient states that he is swelling due to fluid retention, as he is not tolerating ultrafiltration well when he goes to dialysis and that they need to remove more fluids. He denies any shortness of breath, other acute complaints at this time. Symptoms are moderate in severity, no other aggravating or alleviating factors.. Historical: - Allergies: 15:09 Lisinopril; ap3 - PMHx: 15:09 Anemia; Chronic ischemic heart disease; diabetes mellitus; HD - Mon//Mon; Secondary ap3 Hyperparathyroidism of renal origin; - Immunization history:: Client reports receiving the 2nd dose of the Covid vaccine. - Social history:: Smoking status: Patient denies any tobacco usage or history of. - Family history:: not pertinent. ROS: 15:48 Constitutional: Negative for fever, chills, and weight loss, Eyes: Negative for injury, rt pain, redness, and discharge, Cardiovascular: Negative for chest pain, palpitations, and edema, Respiratory: Negative for shortness of breath, cough, wheezing, and pleuritic chest pain, Abdomen/GI: Negative for abdominal pain, nausea, vomiting, diarrhea, and constipation, Skin: Negative for injury, rash, and discoloration, Neuro: Negative for headache, weakness, numbness, tingling, and seizure, Psych: Negative for depression, anxiety, suicide ideation, homicidal ideation, and hallucinations. 15:48 MS/extremity: Positive for Redness, swelling. Exam: 15:48 Constitutional: This is a well developed, well nourished patient who is awake, alert, rt and in no acute distress. Head/Face: Normocephalic, atraumatic. Chest/axilla: Normal chest wall appearance and motion. Nontender with no deformity. No lesions are appreciated. Cardiovascular: Regular rate and rhythm with a normal S1 and S2. No gallops, murmurs, or rubs. Normal PMI, no JVD. No pulse deficits. Respiratory: Lungs have equal breath sounds bilaterally, clear to auscultation and percussion. No rales, rhonchi or wheezes noted. No increased work of breathing, no retractions or nasal flaring. Abdomen/GI: Soft, non-tender, with normal bowel sounds. No distension or tympany. No guarding or rebound. No evidence of tenderness throughout. Neuro: Awake and alert, GCS 15, oriented to person, place, time, and situation. Cranial nerves II-XII grossly intact. Motor strength 5/5 in all extremities. Sensory grossly intact. Cerebellar exam normal. Normal gait. Psych: Awake, alert, with orientation to person, place and time. Behavior, mood, and affect are within normal limits. 15:48 Musculoskeletal/extremity: 4+ pitting edema to bilateral lower extremities, appears to be symmetric, small amount of erythema noted at the left heel, not overtly appearing to be cellulitic. Vital Signs: 15:06 BP 137 / 55; Pulse 64; Resp 18; Temp 97.7; Pulse Ox 99% ; Weight 135 kg; Height 5 ft. ap3 10 in. (177.80 cm); 17:20 Pulse 67; Resp 18; Pulse Ox 94% on R/A; ap3 15:06 Body Mass Index 42.70 (135.00 kg, 177.80 cm) ap3 MDM: 15:03 Patient medically screened. rt 18:28 Differential diagnosis: Infection, sepsis, DVT, cellulitis, septic arthritis. Data rt reviewed: vital signs, nurses notes, lab test result(s), EKG, radiologic studies. I considered the following discharge prescriptions or medication management in the emergency department. External Records Reviewed: Outpatient labs: Reviewed labs, hemoglobin close to baseline. Does not require blood transfusion at this time. Has baseline pancytopenia, likely due to end-stage renal disease he is asymptomatic from an anemia standpoint currently.. Care significantly affected by the following chronic conditions: End-stage renal. Counseling: I had a detailed discussion with the patient and/or guardian regarding: the need for outpatient follow up. ED course: Patient presents to the ED with chronic edema to the bilateral lower extremities. There is no evidence of DVT, the wound appears to be healing well. He is currently on IV antibiotics, no need to escalate care at this time. He is desirous of discharge. Patient stable for outpatient care, return precautions discussed.. 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 EDFL EDMS
[2022-11-30 22:26] VITALS: BP 137/55; TEMP 97.7
[2022-11-30 22:27] VITALS: O2SAT 94
== END 2022-11-30 20:45 | disposition home or self-care (01) ==
LOC: ER 14:43
DX: L08.9 Local infection of the skin and subcutaneous tissue, unspecified (principal); Z99.2 Dependence on renal dialysis; Z88.8 Allergy status to other drugs, medicaments and biological substances
CPT/HCPCS: 36415; 80053; 85025; 93971